=== PATIENT | female | born 1960 | race Two or more races ===

== ENCOUNTER → 2020-08-07 11:56 | Outpatient (BNVA) | payer MEDICAID, SELFPAY | PROVIDERS: PCP Nurse Practitioner Family; Referring Provider Nurse Practitioner Family; Visit Provider Nurse Practitioner Family | DX: I26.99 Other pulmonary embolism without acute cor pulmonale (principal); Z51.81 Encounter for therapeutic drug level monitoring; Z79.01 Long term (current) use of anticoagulants | CPT/HCPCS: 93793 ==

== ENCOUNTER → 2020-08-13 16:32 | Outpatient (BNVA) | payer MEDICAID, SELFPAY | PROVIDERS: PCP Nurse Practitioner Family; Visit Provider Internal Medicine | DX: I26.99 Other pulmonary embolism without acute cor pulmonale (principal); Z51.81 Encounter for therapeutic drug level monitoring; Z79.01 Long term (current) use of anticoagulants | CPT/HCPCS: 99211 ==

== ENCOUNTER 2020-08-14 12:05 | Outpatient (REF) | payer MEDICAID, SELFPAY ==
[2020-08-14 13:55] LABS: Alanine Aminotransferase 45 U/L (0-31); Albumin Level 4.4 g/dL (3.5-5.0); Alkaline Phosphatase 60 U/L (39-117); Anion Gap 12 (12-20); Aspartate Amino Transferase 40 U/L (5-31); Bilirubin Total 0.6 mg/dL (0.0-1.0); Blood Urea Nitrogen 9 mg/dL (9-16); Calcium 9.8 mg/dL (8.4-10.2); Carbon Dioxide 26 mmol/L (22-29); Chloride 106 mmol/L (96-108); Estimated Glomerular Filt Rate 49; Glucose Fasting 142 mg/dL (60-99); Potassium 4.1 mmol/l (3.3-5.1); Sodium 140 mmol/L (135-145); Total Protein 6.6 g/dL (6.5-8.0)
[2020-08-18 10:26] LABS: Calcium, Ionized 5.3 mg/dL (4.8-5.6)
[2020-08-19 07:02] LABS: Calcium (PTHI) 10.1 mg/dL (8.6-10.4); PTHI 22 pg/mL (14-64)
== END 2020-08-14 12:06 | disposition home or self-care (01) ==
LOC: HO.LAB 12:05
PROVIDERS: PCP Nurse Practitioner Family; Visit Provider Internal Medicine Endocrinology, Diabetes & Metabolism
DX: E83.52 Hypercalcemia (principal)
CPT/HCPCS: 80053; 82330; 83970

== ENCOUNTER → 2020-08-21 16:19 | Outpatient (BNVA) | payer MEDICAID, SELFPAY | PROVIDERS: PCP Nurse Practitioner Family; Visit Provider Internal Medicine | DX: I26.99 Other pulmonary embolism without acute cor pulmonale (principal); Z51.81 Encounter for therapeutic drug level monitoring; Z79.01 Long term (current) use of anticoagulants | CPT/HCPCS: Q3014 ==

== ENCOUNTER → 2020-08-27 11:21 | Outpatient (BNVA) | payer MEDICAID, SELFPAY | PROVIDERS: PCP Internal Medicine; Visit Provider Internal Medicine | DX: I26.99 Other pulmonary embolism without acute cor pulmonale (principal); Z51.81 Encounter for therapeutic drug level monitoring; Z79.01 Long term (current) use of anticoagulants | CPT/HCPCS: Q3014 ==

== ENCOUNTER → 2020-09-12 12:57 | Outpatient (BNVA) | payer MEDICAID, SELFPAY | PROVIDERS: PCP Nurse Practitioner Family; Referring Provider Nurse Practitioner Family; Visit Provider Nurse Practitioner Family | DX: K59.00 Constipation, unspecified (principal); K21.9 Gastro-esophageal reflux disease without esophagitis | CPT/HCPCS: 99212 ==

== ENCOUNTER → 2020-09-18 13:08 | Outpatient (BNVA) | payer MEDICAID, SELFPAY | PROVIDERS: PCP Nurse Practitioner Family; Visit Provider Internal Medicine | DX: Z76.89 Persons encountering health services in other specified circumstances (principal) ==

== ENCOUNTER → 2020-10-01 14:20 | Outpatient (BNVA) | payer MEDICAID, SELFPAY | PROVIDERS: PCP Nurse Practitioner Family; Visit Provider Internal Medicine | DX: Z76.89 Persons encountering health services in other specified circumstances (principal) ==

== ENCOUNTER → 2020-10-15 11:52 | Outpatient (BNVA) | payer MEDICAID, SELFPAY | PROVIDERS: PCP Nurse Practitioner Family; Visit Provider Internal Medicine | DX: I26.99 Other pulmonary embolism without acute cor pulmonale (principal); Z51.81 Encounter for therapeutic drug level monitoring; Z79.01 Long term (current) use of anticoagulants | CPT/HCPCS: Q3014 ==

== ENCOUNTER → 2020-10-17 12:59 | Outpatient (BNVA) | payer MEDICAID, SELFPAY | PROVIDERS: PCP Nurse Practitioner Primary Care; Visit Provider Internal Medicine Endocrinology, Diabetes & Metabolism | DX: E11.65 Type 2 diabetes mellitus with hyperglycemia (principal); E11.42 Type 2 diabetes mellitus with diabetic polyneuropathy; Z79.4 Long term (current) use of insulin; E78.5 Hyperlipidemia, unspecified; I10 Essential (primary) hypertension | CPT/HCPCS: 82947; 99212 ==

== ENCOUNTER → 2020-10-20 15:05 | Outpatient (BNVA) | payer MEDICAID, SELFPAY | PROVIDERS: PCP Nurse Practitioner Primary Care; Visit Provider Internal Medicine | DX: I26.99 Other pulmonary embolism without acute cor pulmonale (principal); Z51.81 Encounter for therapeutic drug level monitoring; Z79.01 Long term (current) use of anticoagulants | CPT/HCPCS: Q3014 ==

== ENCOUNTER → 2020-10-24 17:01 | Outpatient (BNVA) | payer MEDICAID, SELFPAY | PROVIDERS: PCP Nurse Practitioner Family; Visit Provider Internal Medicine | DX: I26.99 Other pulmonary embolism without acute cor pulmonale (principal); Z51.81 Encounter for therapeutic drug level monitoring; Z79.01 Long term (current) use of anticoagulants | CPT/HCPCS: Q3014 ==

== ENCOUNTER → 2020-10-29 14:47 | Outpatient (BNVA) | payer MEDICAID, SELFPAY | PROVIDERS: PCP Nurse Practitioner Family; Visit Provider Internal Medicine | DX: Z76.89 Persons encountering health services in other specified circumstances (principal) ==

== ENCOUNTER → 2020-11-03 12:01 | Outpatient (BNVA) | payer MEDICAID, SELFPAY | PROVIDERS: PCP Nurse Practitioner Family; Visit Provider Internal Medicine | DX: I26.99 Other pulmonary embolism without acute cor pulmonale (principal); Z51.81 Encounter for therapeutic drug level monitoring; Z79.01 Long term (current) use of anticoagulants | CPT/HCPCS: Q3014 ==

== ENCOUNTER → 2020-11-11 11:46 | Outpatient (BNVA) | payer MEDICAID, SELFPAY | PROVIDERS: PCP Nurse Practitioner Family; Visit Provider Internal Medicine | DX: I26.99 Other pulmonary embolism without acute cor pulmonale (principal); Z79.01 Long term (current) use of anticoagulants; Z51.81 Encounter for therapeutic drug level monitoring | CPT/HCPCS: Q3014 ==

== ENCOUNTER → 2020-11-19 13:22 | Outpatient (BNVA) | payer MEDICAID, SELFPAY | PROVIDERS: PCP Nurse Practitioner Family; Visit Provider Internal Medicine | DX: I26.99 Other pulmonary embolism without acute cor pulmonale (principal); Z79.01 Long term (current) use of anticoagulants; Z51.81 Encounter for therapeutic drug level monitoring | CPT/HCPCS: Q3014 ==

== ENCOUNTER → 2020-12-01 15:27 | Outpatient (BNVA) | payer MEDICAID, SELFPAY | PROVIDERS: PCP Nurse Practitioner Family; Visit Provider Internal Medicine | DX: I26.99 Other pulmonary embolism without acute cor pulmonale (principal); Z51.81 Encounter for therapeutic drug level monitoring; Z79.01 Long term (current) use of anticoagulants | CPT/HCPCS: Q3014 ==

== ENCOUNTER → 2020-12-16 14:37 | Outpatient (BNVA) | payer MEDICAID, SELFPAY | PROVIDERS: PCP Nurse Practitioner Family; Visit Provider Internal Medicine | DX: I26.99 Other pulmonary embolism without acute cor pulmonale (principal); Z51.81 Encounter for therapeutic drug level monitoring; Z79.01 Long term (current) use of anticoagulants | CPT/HCPCS: Q3014 ==

== ENCOUNTER 2020-12-19 13:13 | Outpatient (REF) | payer MEDICAID, SELFPAY ==
--- NOTE | ~2020-12-19 | MM_ITS ---
EXAMINATION: MM SCREENING DIGITAL BREAST TOMOSYNTHESIS, BILATERAL CLINICAL INFORMATION: Screening. Asymptomatic. The lifetime risk of breast cancer based on the Tyrer-Cuzick Model is 7%. COMPARISON: Mammography: 07/04/2018, 03/01/2017 TECHNIQUE: Digital breast tomosynthesis is performed in both the craniocaudal and mediolateral oblique views along with computer-aided detection (CAD). Synthesized 2D images are generated from the tomosynthesis. Additional left cleavage view is provided. FINDINGS: There are scattered areas of fibroglandular density (ACR BI-RADS breast composition Category b). There are no significant masses, abnormal calcifications, or other abnormalities. Parenchymal pattern is similar to prior studies. MM/MM tomosynthesis screening BI IMPRESSION: No mammographic evidence of malignancy. ASSESSMENT: BI-RADS 1: Negative RECOMMENDATION: Routine annual mammography screening. This patient's information was entered into a reminder system with a target due date for their next mammogram.
== END 2020-12-19 13:14 | disposition home or self-care (01) ==
LOC: HO.MAMMO 13:13
PROVIDERS: Visit Provider Nurse Practitioner Primary Care
DX: Z12.31 Encounter for screening mammogram for malignant neoplasm of breast (principal)
CPT/HCPCS: 77063; 77067

== ENCOUNTER → 2020-12-29 15:22 | Outpatient (BNVA) | payer MEDICAID, SELFPAY | PROVIDERS: PCP Nurse Practitioner Family; Visit Provider Internal Medicine | DX: I26.99 Other pulmonary embolism without acute cor pulmonale (principal); Z51.81 Encounter for therapeutic drug level monitoring; Z79.01 Long term (current) use of anticoagulants | CPT/HCPCS: Q3014 ==

== ENCOUNTER → 2021-01-05 13:36 | Outpatient (BNVA) | payer MEDICAID, SELFPAY | PROVIDERS: PCP Nurse Practitioner Family; Visit Provider Internal Medicine | DX: I26.99 Other pulmonary embolism without acute cor pulmonale (principal); Z51.81 Encounter for therapeutic drug level monitoring; Z79.01 Long term (current) use of anticoagulants | CPT/HCPCS: Q3014 ==

== ENCOUNTER → 2021-01-12 16:04 | Outpatient (BNVA) | payer MEDICAID, SELFPAY | PROVIDERS: PCP Nurse Practitioner Family; Visit Provider Internal Medicine | DX: I26.99 Other pulmonary embolism without acute cor pulmonale (principal); Z51.81 Encounter for therapeutic drug level monitoring; Z79.01 Long term (current) use of anticoagulants | CPT/HCPCS: Q3014 ==

== ENCOUNTER → 2021-01-26 14:12 | Outpatient (BNVA) | payer MEDICAID, SELFPAY | PROVIDERS: PCP Internal Medicine; Visit Provider Internal Medicine | DX: I26.99 Other pulmonary embolism without acute cor pulmonale (principal); Z51.81 Encounter for therapeutic drug level monitoring; Z79.01 Long term (current) use of anticoagulants | CPT/HCPCS: Q3014 ==

== ENCOUNTER 2021-01-27 10:59 | Outpatient (REF) | payer MEDICAID, SELFPAY ==
[2021-01-27 12:48] LABS: Hematocrit 44.3 % (37-47); Hemoglobin 15.5 g/dl (12.0-16.0); Mean Corpuscular Hemoglobin 30.4 pg (27.0-33.0); Mean Corpuscular Volume 86.9 fL (80-98); Mean Platelet Volume 12.3 fL (9.4-12.3); Platelet Count 229 X10*3/uL (160-400); White Blood Count 7.6 X10*3/uL (4.8-10.8)
[2021-01-27 13:15] LABS: Estimated Average Glucose 229 mg/dL; Hemoglobin A1c % 9.6 %
[2021-01-27 13:21] LABS: Alanine Aminotransferase 48 U/L (0-31); Albumin Level 4.8 g/dL (3.5-5.0); Alkaline Phosphatase 96 U/L (39-117); Anion Gap 19 (12-20); Aspartate Amino Transferase 40 U/L (5-31); Bilirubin Direct 0.3 mg/dL (0.0-0.5); Bilirubin Total 0.8 mg/dL (0.0-1.0); Blood Urea Nitrogen 12 mg/dL (9-16); Calcium 10.2 mg/dL (8.4-10.2); Carbon Dioxide 24 mmol/L (22-29); Chloride 99 mmol/L (96-108); Cholesterol 163 mg/dL; Estimated Glomerular Filt Rate 48; Glucose Random 239 mg/dL (60-115); HDL Cholesterol 46 mg/dL; LDL Cholesterol Calculated 77 mg/dl; Magnesium 1.7 mg/dL (1.6-2.6); Sodium 138 mmol/L (135-145); Total Protein 7.5 g/dL (6.5-8.0); Triglycerides 200 mg/dL
[2021-01-27 13:43] LABS: TSH reflex Free T4 1.03 uIU/mL (0.32-4.0)
[2021-01-27 13:57] LABS: Vitamin B12 322 pg/mL (200-900)
== END 2021-01-27 11:00 | disposition home or self-care (01) ==
LOC: HO.LAB 10:59
PROVIDERS: PCP Nurse Practitioner Primary Care; Visit Provider Nurse Practitioner Primary Care
DX: E55.9 Vitamin D deficiency, unspecified (principal); I10 Essential (primary) hypertension; E78.2 Mixed hyperlipidemia; E11.22 Type 2 diabetes mellitus with diabetic chronic kidney disease; E11.69 Type 2 diabetes mellitus with other specified complication; K75.81 Nonalcoholic steatohepatitis (NASH); R25.2 Cramp and spasm; R79.89 Other specified abnormal findings of blood chemistry
CPT/HCPCS: 36415; 80048; 80061; 80076; 82306; 82607; 83036; 83735; 84443; 85027

== ENCOUNTER → 2021-02-02 15:30 | Outpatient (BNVA) | payer MEDICAID, SELFPAY | PROVIDERS: PCP Nurse Practitioner Family; Visit Provider Internal Medicine | DX: I26.99 Other pulmonary embolism without acute cor pulmonale (principal); Z51.81 Encounter for therapeutic drug level monitoring; Z79.01 Long term (current) use of anticoagulants | CPT/HCPCS: Q3014 ==

== ENCOUNTER → 2021-02-09 16:29 | Outpatient (BNVA) | payer MEDICAID, SELFPAY | PROVIDERS: PCP Internal Medicine; Visit Provider Internal Medicine | DX: I26.99 Other pulmonary embolism without acute cor pulmonale (principal) | CPT/HCPCS: Q3014 ==

== ENCOUNTER → 2021-02-13 16:19 | Outpatient (BNVA) | payer MEDICAID, SELFPAY | PROVIDERS: PCP Nurse Practitioner Primary Care; Visit Provider Internal Medicine | DX: I26.99 Other pulmonary embolism without acute cor pulmonale (principal); Z79.01 Long term (current) use of anticoagulants; Z51.81 Encounter for therapeutic drug level monitoring | CPT/HCPCS: Q3014 ==

== ENCOUNTER → 2021-02-17 14:35 | Outpatient (BNVA) | payer MEDICAID, SELFPAY | PROVIDERS: PCP Nurse Practitioner Primary Care; Visit Provider Internal Medicine | DX: I26.99 Other pulmonary embolism without acute cor pulmonale (principal); Z79.01 Long term (current) use of anticoagulants; Z51.81 Encounter for therapeutic drug level monitoring | CPT/HCPCS: Q3014 ==

== ENCOUNTER → 2021-02-19 16:09 | Outpatient (BNVA) | payer MEDICAID, SELFPAY | PROVIDERS: PCP Nurse Practitioner Primary Care; Visit Provider Internal Medicine ==

== ENCOUNTER → 2021-02-25 14:01 | Outpatient (BNVA) | payer MEDICAID, SELFPAY | PROVIDERS: PCP Nurse Practitioner Primary Care; Visit Provider Internal Medicine | DX: I26.99 Other pulmonary embolism without acute cor pulmonale (principal); Z79.01 Long term (current) use of anticoagulants; Z51.81 Encounter for therapeutic drug level monitoring | CPT/HCPCS: Q3014 ==

== ENCOUNTER → 2021-03-04 15:00 | Outpatient (BNVA) | payer MEDICAID, SELFPAY | PROVIDERS: PCP Nurse Practitioner Primary Care; Visit Provider Internal Medicine | DX: I26.99 Other pulmonary embolism without acute cor pulmonale (principal); Z51.81 Encounter for therapeutic drug level monitoring; Z79.01 Long term (current) use of anticoagulants | CPT/HCPCS: Q3014 ==

== ENCOUNTER → 2021-03-09 14:56 | Outpatient (BNVA) | payer MEDICAID, SELFPAY | PROVIDERS: PCP Nurse Practitioner Primary Care; Visit Provider Internal Medicine | DX: Z51.81 Encounter for therapeutic drug level monitoring (principal) | CPT/HCPCS: Q3014 ==

== ENCOUNTER → 2021-03-16 14:47 | Outpatient (BNVA) | payer MEDICAID, SELFPAY | PROVIDERS: PCP Internal Medicine; Visit Provider Internal Medicine | DX: I26.99 Other pulmonary embolism without acute cor pulmonale (principal) | CPT/HCPCS: Q3014 ==

== ENCOUNTER → 2021-03-19 11:48 | Outpatient (BNVA) | payer MEDICAID, SELFPAY | PROVIDERS: PCP Nurse Practitioner Primary Care; Visit Provider Internal Medicine | DX: I26.99 Other pulmonary embolism without acute cor pulmonale (principal) | CPT/HCPCS: Q3014 ==

== ENCOUNTER → 2021-03-24 13:25 | Outpatient (BNVA) | payer MEDICAID, SELFPAY | PROVIDERS: PCP Nurse Practitioner Primary Care; Visit Provider Internal Medicine | DX: I26.99 Other pulmonary embolism without acute cor pulmonale (principal) | CPT/HCPCS: Q3014 ==

== ENCOUNTER → 2021-04-27 12:58 | Outpatient (BNVA) | payer MEDICAID, SELFPAY | PROVIDERS: PCP Internal Medicine; Visit Provider Internal Medicine Endocrinology, Diabetes & Metabolism | DX: E11.65 Type 2 diabetes mellitus with hyperglycemia (principal); E11.42 Type 2 diabetes mellitus with diabetic polyneuropathy; I10 Essential (primary) hypertension; E78.5 Hyperlipidemia, unspecified; Z79.4 Long term (current) use of insulin; Z71.3 Dietary counseling and surveillance | CPT/HCPCS: 82947; 99212 ==

== ENCOUNTER 2021-06-10 10:27 | Emergency (ER) | payer MEDICAID, SELFPAY ==
--- NOTE | ~2021-06-10 | XR_ITS ---
EXAMINATION: XR SHOULDER, RIGHT CLINICAL INFORMATION: Pain. Fall/trauma approximately 2 weeks ago. COMPARISON: Chest radiographs 06/16/2017 TECHNIQUE: Right shoulder is imaged in 4 views. FINDINGS: There is no acute or healing fracture or dislocation or destructive process. The glenohumeral joint is normal. The acromioclavicular alignment is normal. There are no visible rotator cuff calcifications. The right lung apex shows no pneumothorax or pleural reaction. No infiltrate. XR/XR shoulder RT min 2V IMPRESSION: Unremarkable right shoulder.
[2021-06-10 10:29] VITALS: BP 146/89; PULSE 63; RESP 17; TEMP 36.5; O2SAT 100; BMI 29.0
--- NOTE | 2021-06-10 11:16 | ED.GENADULT ---
HPI - General Adult General Chief complaint: Extremity Problem Stated complaint: shoulder pain Time Seen by Provider: 06/10/21 11:11 History of Present Illness HPI narrative: This is a 60-year-old female who fell a few weeks ago injuring her right shoulder area. The patient states she actually landed on her buttock and does not believe she directly impacted her right shoulder but subsequently did have pain to her right shoulder area especially the posterior area at the base of the neck. The patient complains of pain from the right base of her neck down to her right shoulder area. She did bump her head but denies loss of consciousness or nausea vomiting. She has only a very mild headache. She is on Coumadin due to prior pulmonary embolism. She denies any shortness of breath or abdominal pain. She denies any numbness or weakness in her right upper extremity. Pain is moderately severe, aching, worse with movement. She denies any pain to her buttock area Related Data Home Medications Medication Instructions Recorded Confirmed albuterol sulfate 90 mcg/actuation 2 puff INHALATION Q4-6H PRN 08/26/20 04/27/21 aerosol inhaler (ProAir HFA) aspirin 81 mg tablet 81 mg PO DAILY 08/26/20 04/27/21 atorvastatin 80 mg tablet (Lipitor) 80 mg PO DAILY 08/26/20 04/27/21 blood-glucose meter (FreeStyle 08/26/20 04/27/21 Lite Meter) budesonide-formoterol HFA 160 2 puff INHALATION BID 08/26/20 04/27/21 mcg-4.5 mcg/actuation aerosol inhaler clonazepam 1 mg tablet 1 mg PO BEDTIME 08/26/20 04/27/21 docusate sodium 100 mg capsule 100 mg PO BID PRN 08/26/20 04/27/21 (Colace) eszopiclone 2 mg tablet 2 mg PO BEDTIME 08/26/20 04/27/21 fenofibrate micronized 134 mg 134 mg PO DAILY 08/26/20 04/27/21 capsule fluconazole 150 mg tablet 150 mg PO ONCE 08/26/20 04/27/21 furosemide 20 mg tablet 20 mg PO DAILY 08/26/20 04/27/21 gabapentin 600 mg tablet 600 mg PO TID 08/26/20 04/27/21 metoprolol succinate 25 mg 25 mg PO BID 08/26/20 04/27/21 tablet,extended release 24 hr nitroglycerin 0.3 mg sublingual 0.3 mg SUBLINGUAL DAILY PRN 08/26/20 04/27/21 tablet (Nitrostat) sennosides 8.6 mg-docusate sodium 1 tab-cap PO BEDTIME PRN 08/26/20 04/27/21 50 mg tablet sertraline 100 mg tablet (Zoloft) 100 mg PO DAILY 08/26/20 04/27/21 tiotropium bromide 2.5 2 puff INHALATION DAILY 08/26/20 04/27/21 mcg/actuation mist for inhalation tramadol 50 mg tablet 50 mg PO Q8H PRN 08/26/20 04/27/21 varenicline 0.5 mg tablet (Chantix) 0.5 mg PO DAILY 08/26/20 04/27/21 Previous Rx's Medication Instructions Recorded omeprazole 20 mg capsule,delayed 20 mg PO BID #60 cap 10/01/20 release alcohol swabs (Alcohol Pads) 1 pad TOPICAL .4 times a day 30 10/07/20 Days #200 ea warfarin 2 mg tablet 2 mg PO DAILY #90 tab 11/19/20 FreeStyle Lancets 28 gauge #300 ea NS 04/27/21 (lancets) acarbose 100 mg tablet 100 mg PO TID 90 Days #270 tab 04/27/21 blood sugar diagnostic (FreeStyle #300 ea 04/27/21 Lite Strips) dulaglutide 3 mg/0.5 mL 3 mg SUBCUT QWEEK 30 Days #2.5 ml 04/27/21 subcutaneous pen injector (Trulicity) insulin glargine 100 unit/mL 42 unit SUBCUT QPM 90 Days #60 ml 04/27/21 subcutaneous solution (Lantus U-100 Insulin) insulin syringe-needle U-100 0.5 1 ml MISCELLANEOUS DAILY 90 Days 04/27/21 mL 31 gauge x 5/16 (Comfort EZ #100 ea Insulin Syringe) metformin 500 mg tablet 500 mg PO BID 90 Days #180 tab 04/27/21 tramadol 50 mg tablet 50 - 100 mg PO Q4H PRN #20 tab 06/10/21 Allergies Allergy/AdvReac Type Severity Reaction Status Date / Time No Known Allergies Allergy Verified 03/24/21 13:26 Pt states no food/medication Allergy Unknown NONE Uncoded 08/09/20 15:09 a Review of Systems Cardiovascular: Cardiovascular: Reports no additional cardiovascular complaints Respiratory: Respiratory: Reports no additional respiratory complaints Musculoskeletal: Musculoskeletal: Reports as per HPI and Denies numbness Neurologic: Denies focal weakness, Denies numbness and Denies Sensory deficit (Neuro) [facility] Past Medical History Medical History (Updated 06/10/21 @ 12:14 by Swapnil Paulino MD) Constipation Diabetes type 2, uncontrolled Diabetic polyneuropathy associated with type 2 diabetes mellitus Dyslipidemia GERD (gastroesophageal reflux disease) Hypertension intermediate (current) use of insulin Surgical History Hx of endoscopy Family History Family History (Updated 09/12/20 @ 12:57 by Iman Myers CMA) Father No problems noted. Mother Hx of colon cancer, stage I Hx of diabetes insipidus Social History Social History (Updated 03/10/21 @ 10:17 by Linsey Marcos RN) Alcohol intake: former Advance Directives: No Advance Directives Information Provided: No Patient : No Physical Exam Vital Signs: Vital Signs: Last Vital Signs Temp 97.7 F 06/10/21 10:29 Pulse 63 06/10/21 10:29 Resp 17 06/10/21 10:29 BP 146/89 H 06/10/21 10:29 Pulse Ox 100 06/10/21 10:29 Body Mass Index 29.0 Const: General: cooperative, no acute distress and alert Orientation/consciousness: patient oriented x3 HENMT: Head: Yes normal to inspection Eyes: General: appearance normal, both eyes and all related structures Eyelids: Yes eyelids normal Conjunctivae: conjunctivae normal Pupils: Equal, round and reactive pupils present Neck: Neck: Yes normal visual inspection and Yes supple Chest: Chest palpation & inspection: normal inspection of the chest Resp: Effort & Inspection: normal respiratory effort Auscultation: clear to auscultation bilaterally Cardio: Rate: regular rate Rhythm: regular rhythm Heart sounds: S1 normal heart sound present, S2 normal heart sound present, no gallops, no murmurs and no rubs GI: Palpation (GI): Soft to palpation, nontender and Other GI palpation findings present (Non-distended) Auscultation: normal bowel sounds Skin: General skin exam: no rashes or lesions noted Neuro: General: patient oriented x3, no focal motor deficits and CN's II-XI intact bilaterally Cranial nerves: Yes Equal, round and reactive pupils present Cognition (Neuro): normal cognition Motor exam (neuro): 5/5 motor strength present throughout Sensory Exam: No Sensory deficit (Neuro) Extrem: General: Yes normal to inspection, Yes no pedal edema and Yes other (Mild tenderness right posterior shoulder, right base of neck) Psych: Appearance: grossly normal Affect: normal affect Medical Decision Making MDM Narrative Medical decision making narrative: Patient with right posterior shoulder and neck pain after she fell on her buttock few weeks ago. Shoulder x-ray negative. Patient reported no buttock pain. Patient thinks she may have bumped her head, and is on Coumadin however the injury occurred 2 weeks ago and the patient reports no significant headache, did not lose consciousness, has not had any nausea vomiting, is neurologically normal, do not believe CT scan is indicated. Imaging Data Right shoulder: Attestation: I personally reviewed and interpreted this imaging study as follows: My impression: No acute pathology Discharge Plan Discharge Clinical Impression: Upper back pain on right side Patient Disposition: Home, Self-Care Instructions: Back Pain (ED), Neck Pain (ED) Additional Instructions: Use Tylenol 650 mg every 4-6 hours for pain as needed. Use the prescribed tramadol as well for pain. Try to rest your neck and upper back. Follow-up with primary care physician. Return for any new or worsened symptoms such as progressive headache, nausea vomiting Prescriptions: New tramadol 50 mg tablet 50 - 100 mg PO Q4H PRN (Reason: pain) Qty: 20 RF: 0 No Action omeprazole 20 mg capsule,delayed release(DR/EC) 20 mg PO BID Qty: 60 RF: 11 alcohol swabs [Alcohol Pads] Pads, Medicated 1 pad topical .4 times a day 30 Days Qty: 200 RF: 6 atorvastatin [Lipitor] 80 mg Tablet 80 mg PO DAILY RF: 0 gabapentin 600 mg Tablet 600 mg PO TID RF: 0 sertraline [Zoloft] 100 mg Tablet 100 mg PO DAILY RF: 0 tramadol 50 mg Tablet 50 mg PO Q8H PRN (Reason: Pain) RF: 0 fenofibrate micronized 134 mg Capsule 134 mg PO DAILY RF: 0 aspirin 81 mg Tablet 81 mg PO DAILY RF: 0 metoprolol succinate 25 mg Tablet Extended Release 24 Hr 25 mg PO BID RF: 0 nitroglycerin [Nitrostat] 0.3 mg Tablet, Sublingual 0.3 mg SUBLINGUAL DAILY PRN (Reason: Chest Pain) RF: 0 fluconazole 150 mg Tablet 150 mg PO ONCE RF: 0 clonazepam 1 mg Tablet 1 mg PO BEDTIME RF: 0 furosemide 20 mg Tablet 20 mg PO DAILY RF: 0 albuterol sulfate [ProAir HFA] 90 mcg/actuation Hfa Aerosol Inhaler 2 puff INHALATION Q4-6H PRN (Reason: Shortness Of Breath Or Wheezing) RF: 0 eszopiclone 2 mg Tablet 2 mg PO BEDTIME RF: 0 budesonide-formoterol 160-4.5 mcg/actuation Hfa Aerosol Inhaler 2 puff INHALATION BID RF: 0 tiotropium bromide 2.5 mcg/actuation Mist 2 puff INHALATION DAILY RF: 0 sennosides-docusate sodium 8.6-50 mg Tablet 1 tab-cap PO BEDTIME PRN (Reason: Constipation) RF: 0 (DME) blood-glucose meter [FreeStyle Lite Meter] Kit MISCELLANEOUS RF: 0 docusate sodium [Colace] 100 mg Capsule 100 mg PO BID PRN (Reason: Constipation) RF: 0 Chantix 0.5 mg Tablet 0.5 mg PO DAILY RF: 0 acarbose 100 mg tablet 100 mg PO TID 90 Days Qty: 270 RF: 2 (DME) FreeStyle Lite Strips Strip See Rx Instructions .ROUTE .MEDSUPPLY Qty: 300 RF: 2 (DME) lancets [FreeStyle Lancets] 28 gauge misc MISCELLANEOUS Qty: 300 RF: 1 Lantus U-100 Insulin 100 unit/mL solution 42 unit SUBCUT QPM 90 Days Qty: 60 RF: 1 insulin syringe-needle U-100 [Comfort EZ Insulin Syringe] 0.5 mL 31 gauge x 5/16 syringe 1 ml miscellaneous DAILY 90 Days Qty: 100 RF: 3 metformin 500 mg tablet 500 mg PO BID 90 Days Qty: 180 RF: 0 Trulicity 3 mg/0.5 mL pen injector 3 mg subcut QWEEK 30 Days Qty: 2.5 RF: 5 warfarin 2 mg tablet 2 mg PO DAILY Qty: 90 RF: 0 Interventions: ED Discharge Assessment Last Done: 06/10/21 12:38 Discharge Date/Time: 06/10/21 12:39
[2021-06-10] MEDS: traMADoL HCL 50 MG TABLET PO (11:22)
[2021-06-10] MEDS: Acetaminophen 325 MG TABLET 650 MG PO (11:23)
== END 2021-06-10 12:39 | disposition home or self-care (01) ==
PROVIDERS: Emergency Provider Emergency Medicine; PCP Nurse Practitioner Family
DX: M54.6 Pain in thoracic spine (principal); M54.2 Cervicalgia; E11.9 Type 2 diabetes mellitus without complications; I10 Essential (primary) hypertension; Z86.711 Personal history of pulmonary embolism; Z79.01 Long term (current) use of anticoagulants; Z79.82 Long term (current) use of aspirin; Z79.899 Other long term (current) drug therapy; Z79.4 Long term (current) use of insulin
CPT/HCPCS: 73030; 99283; 99284

== ENCOUNTER 2021-08-04 11:58 | Outpatient (REF) | payer MEDICAID, SELFPAY ==
[2021-08-04 13:03] LABS: Alanine Aminotransferase 83 U/L (0-31); Albumin Level 4.6 g/dL (3.5-5.0); Alkaline Phosphatase 97 U/L (39-117); Anion Gap 15 (12-20); Aspartate Amino Transferase 90 U/L (5-31); Bilirubin Total 0.9 mg/dL (0.0-1.0); Blood Urea Nitrogen 11 mg/dL (9-16); Calcium 10.4 mg/dL (8.4-10.2); Carbon Dioxide 24 mmol/L (22-29); Chloride 102 mmol/L (96-108); Cholesterol 135 mg/dL; Estimated Glomerular Filt Rate 50; Glucose Fasting 285 mg/dL (60-99); HDL Cholesterol 38 mg/dL; LDL Cholesterol Calculated 61 mg/dl; Potassium 3.8 mmol/L (3.3-5.1); Sodium 137 mmol/L (135-145); Total Protein 7.2 g/dL (6.5-8.0); Triglycerides 182 mg/dL
[2021-08-04 14:04] LABS: Reflex LDLD? No
[2021-08-04 14:51] LABS: Creatinine Urine 134.99 mg/dL; Microalbum/Creatinine Ratio Ur 21.4 ug/mg cr
== END 2021-08-04 11:59 | disposition home or self-care (01) ==
LOC: HO.LAB 11:58
PROVIDERS: Visit Provider Nurse Practitioner Gerontology
DX: E11.42 Type 2 diabetes mellitus with diabetic polyneuropathy (principal)
CPT/HCPCS: 36415; 80053; 80061; 82043

== ENCOUNTER → 2021-08-05 13:57 | Outpatient (BNVA) | payer MEDICAID, SELFPAY | PROVIDERS: PCP Nurse Practitioner Primary Care; Visit Provider Nurse Practitioner Gerontology | DX: E11.65 Type 2 diabetes mellitus with hyperglycemia (principal); E78.5 Hyperlipidemia, unspecified; I10 Essential (primary) hypertension; Z79.4 Long term (current) use of insulin | CPT/HCPCS: 82947; 83036; 99212 ==

== ENCOUNTER → 2021-08-20 14:25 | Outpatient (BNVA) | payer MEDICAID, SELFPAY | PROVIDERS: PCP Nurse Practitioner Primary Care; Visit Provider Nurse Practitioner Gerontology ==

== ENCOUNTER → 2021-12-08 12:57 | Outpatient (BNVA) | payer MEDICAID, SELFPAY | PROVIDERS: PCP Nurse Practitioner Primary Care; Visit Provider Nurse Practitioner Gerontology | DX: E11.65 Type 2 diabetes mellitus with hyperglycemia (principal); I10 Essential (primary) hypertension; E78.5 Hyperlipidemia, unspecified; Z79.4 Long term (current) use of insulin | CPT/HCPCS: 82947; 83036; 99212 ==

== ENCOUNTER → 2022-01-13 13:19 | Outpatient (BNVA) | payer MEDICAID, SELFPAY | PROVIDERS: PCP Nurse Practitioner Primary Care; Referring Provider Nurse Practitioner Primary Care; Visit Provider Nurse Practitioner Family | DX: I25.10 Atherosclerotic heart disease of native coronary artery without angina pectoris (principal); I10 Essential (primary) hypertension; E78.5 Hyperlipidemia, unspecified; R79.89 Other specified abnormal findings of blood chemistry; Z86.711 Personal history of pulmonary embolism; Z79.01 Long term (current) use of anticoagulants; Z79.82 Long term (current) use of aspirin; Z79.899 Other long term (current) drug therapy; Z95.5 Presence of coronary angioplasty implant and graft | CPT/HCPCS: 93005; 99212 ==

== ENCOUNTER 2022-01-27 11:17 | Outpatient (REF) | payer MEDICAID, SELFPAY ==
[2022-01-27 12:51] LABS: Alanine Aminotransferase 49 U/L (0-31); Albumin Level 4.4 g/dL (3.5-5.0); Alkaline Phosphatase 98 U/L (39-117); Anion Gap 15 (12-20); Aspartate Amino Transferase 32 U/L (5-31); Bilirubin Total 0.7 mg/dL (0.0-1.0); Blood Urea Nitrogen 13 mg/dL (9-16); Calcium 10.1 mg/dL (8.4-10.2); Carbon Dioxide 23 mmol/L (22-29); Chloride 102 mmol/L (96-108); Cholesterol 136 mg/dL; Estimated Glomerular Filt Rate 49; Glucose Random 315 mg/dL (60-115); HDL Cholesterol 38 mg/dL; LDL Cholesterol Calculated 68 mg/dl; Potassium 4.1 mmol/L (3.3-5.1); Sodium 136 mmol/L (135-145); Total Protein 6.9 g/dL (6.5-8.0); Triglycerides 151 mg/dL
== END 2022-01-27 11:18 | disposition home or self-care (01) ==
LOC: HO.LAB 11:17
PROVIDERS: PCP Nurse Practitioner Primary Care; Visit Provider Nurse Practitioner Family
DX: E78.5 Hyperlipidemia, unspecified (principal); I10 Essential (primary) hypertension
CPT/HCPCS: 36415; 80053; 80061

== ENCOUNTER → 2022-03-22 11:58 | Outpatient (BNVA) | payer MEDICAID, SELFPAY | PROVIDERS: PCP Nurse Practitioner Primary Care; Visit Provider Nurse Practitioner Gerontology | DX: E11.65 Type 2 diabetes mellitus with hyperglycemia (principal); E78.5 Hyperlipidemia, unspecified; I10 Essential (primary) hypertension; Z79.4 Long term (current) use of insulin | CPT/HCPCS: 82947; 83036; 99212 ==

== ENCOUNTER → 2022-07-21 13:07 | Outpatient (BNVA) | payer MEDICAID, SELFPAY | PROVIDERS: PCP Nurse Practitioner Primary Care; Visit Provider Nurse Practitioner Family | DX: K21.9 Gastro-esophageal reflux disease without esophagitis (principal); K59.04 Chronic idiopathic constipation; R79.89 Other specified abnormal findings of blood chemistry; R10.9 Unspecified abdominal pain | CPT/HCPCS: 99212 ==

== ENCOUNTER 2022-08-04 11:00 | Outpatient (REF) | payer MEDICAID, SELFPAY ==
[2022-08-04 12:09] LABS: Alanine Aminotransferase 23 U/L (0-31); Albumin Level 4.8 g/dL (3.5-5.0); Alkaline Phosphatase 82 U/L (39-117); Aspartate Amino Transferase 35 U/L (5-31); Bilirubin Direct 0.3 mg/dL (0.0-0.5); Bilirubin Total 0.7 mg/dL (0.0-1.0); Total Protein 7.4 g/dL (6.5-8.0)
== END 2022-08-04 11:01 | disposition home or self-care (01) ==
LOC: HO.LAB 11:00
PROVIDERS: PCP Nurse Practitioner Primary Care; Visit Provider Nurse Practitioner Family
DX: R10.9 Unspecified abdominal pain (principal)
CPT/HCPCS: 36415; 80076

== ENCOUNTER 2022-12-03 12:57 | Outpatient (REF) | payer MEDICAID, SELFPAY ==
--- NOTE | ~2022-12-03 | MM_ITS ---
EXAMINATION: MM SCREENING DIGITAL BREAST TOMOSYNTHESIS, BILATERAL CLINICAL INFORMATION: Screening. Asymptomatic. The lifetime risk of breast cancer based on the Tyrer-Cuzick Model is 8%. COMPARISON: Mammography: 12/19/2020, 07/04/2018, 03/01/2017 TECHNIQUE: Digital breast tomosynthesis is performed in both the craniocaudal and mediolateral oblique views along with computer-aided detection (CAD). Synthesized 2D images are generated from the tomosynthesis. FINDINGS: There are scattered areas of fibroglandular density (ACR BI-RADS breast composition Category b). There are no significant masses, abnormal calcifications, or other abnormalities. Parenchymal pattern is similar to prior studies. There is no developing density or architectural abnormality. The axilla and skin contours are unremarkable. No significant changes. MM/MM tomosynthesis screening BI IMPRESSION: No mammographic evidence of malignancy. ASSESSMENT: BI-RADS 1: Negative RECOMMENDATION: Routine annual mammography screening. This patient's information was entered into a reminder system with a target due date for their next mammogram.
== END 2022-12-03 12:58 | disposition home or self-care (01) ==
LOC: HO.MAMMO 12:57
PROVIDERS: PCP Nurse Practitioner Primary Care; Visit Provider Nurse Practitioner Primary Care
DX: Z12.31 Encounter for screening mammogram for malignant neoplasm of breast (principal)
CPT/HCPCS: 77063; 77067

== ENCOUNTER → 2023-03-07 14:29 | Outpatient (BNVA) | payer MEDICAID, SELFPAY | PROVIDERS: PCP Nurse Practitioner Primary Care; Referring Provider Nurse Practitioner Primary Care; Visit Provider Internal Medicine | DX: I25.10 Atherosclerotic heart disease of native coronary artery without angina pectoris (principal); I10 Essential (primary) hypertension; R94.31 Abnormal electrocardiogram [ECG] [EKG]; E11.65 Type 2 diabetes mellitus with hyperglycemia; E11.42 Type 2 diabetes mellitus with diabetic polyneuropathy; E78.5 Hyperlipidemia, unspecified; Z95.5 Presence of coronary angioplasty implant and graft; Z79.4 Long term (current) use of insulin | CPT/HCPCS: 93005; 99212 ==

== ENCOUNTER → 2023-04-05 08:50 | Outpatient (REF) | payer MEDICAID, SELFPAY ==
--- NOTE | ~2023-04-05 | NM_ITS ---
Lexiscan Myocardial perfusion study Indication: Abnormal EKG, coronary disease, assess for ischemia Technique: The patient was brought in for a Lexiscan perfusion study on 04/05/2023 and was injected 0.4 mg of Lexiscan intravenously. Within a minute of this injection 25 mCi of sestamibi was given intravenously. Images were obtained using the SPECT gamma camera interlaced with the gating device. Images were obtained in supine position. Resting perfusion study was performed on 04/07/2023. Patient was administered 25 mCi of sestamibi intravenously at rest. Images were then obtained in supine position. Images were processed with the software and compared side to side in short axis, horizontal long axis and vertical long axis views. Total DLP 145mGy-cm. Findings: Raw acquisition reviewed. Arms by the patient's side. The stress perfusion study showed no significant perfusion abnormality. With CT attenuation correction, there is slightly reduced tracer uptake in the apical part of anterior wall. The gated study shows normal LV systolic function with calculated LVEF of 60%. LV cavity is normal in size. The gated study shows normal wall thickening and contraction of segments. Resting study shows diminished tracer uptake in the septum more towards the basal part. Improves with CT attenuation correction. Gating at rest reveals normal wall motion with ejection fraction at 56%. The findings are consistent with no clear reversible or fixed perfusion defects. NM/NM cardiolite stress test Impression: 1. Myocardial perfusion imaging study shows normal myocardial perfusion 2. Gated LVEF is 60% during stress and 56% during rest. 3. Transient ischemic dilatation not present. EKG component of the test reported separately.
--- NOTE | 2023-04-05 08:55 | CA_ITS ---
Acquisition Time: 2023-04-05 10:23:13 Total Exercise Time: 00:03:04 Test Indications: Abnormal ECG CAD Medications: SEE H Protocol: YOVANY Max HR: 179 BPM 112% of Pred: 159 BPM Max BP: 138/078 mmHG Max Work Load: 4.6 METS Exercise stress test exercise 3 min 4 sec of Yovany protocol stage 1 with request to stop due to faitgue and moderate SOB, once in chair she describe chest pressure 9/10, without arrhythmias, with normotensive response to exercise,without EKG changes. Once SOB and chest discomfort resolved test changed to a pharmacological stress test with Lexiscan injection while sitting and kicking her legs, with mild SOB, with reported 7/10 chest pressure, without arrhythmias, with noromotensive response to injection, without EKG changes. Aminophylline 75mg IVP given to reverse Lexiscan in recovery. Chest discomfort resolved by 7 min recovery. Nuclear images pending. Test reviewed with Dr. Nowak Referred By: Rashid Recinos Overread By: FAINA BATES
--- NOTE | 2023-04-05 08:55 | CA_ITS ---
Transthoracic Echocardiogram Patient (Last, First, Middle): Joelle Myers I Gender: Female Date of : 1960 Age: 62 Procedure Date: 04/05/2023 Procedure Type: Transthoracic Echocardiogram Location: OP Height: 154.94 cm Weight: 70.76 kg BSA: 1.70 m2 Heart Rate: bpm BP: 134 / 60 mmHg Pharmacognosy Teacher: Referring MD: Rashid Recinos MD Primary Education Professor: Moses Nowak MD Symptoms: I25.10 - Atherosclerotic heart disease of ewiiaapaayp coronary artery without... Study Quality: Adequate w Conteast ECG Rhythm: Sinus Conclusions: - 1. Normal LV systolic function with impaired relaxation filling pattern 2. Normal cardiac valvular Doppler 3. Normal RV systolic pressure 4. No gross pericardial effusion Findings Procedure Information Contrast agent, definity, is being given per protocol without apparent complications. Left Ventricle Normal left ventricular size and systolic function. There is mildly increased left ventricular wall thickness. The visually estimated ejection fraction is between 60-65%. Spectral Doppler is indicative of an impaired relaxation filling pattern. E/E prime ratio is between 8 and 15 consistent with indeterminate filling pressures. Wall Motion Rest Echo Findings The inferoseptal wall, the basal inferior, and mid inferior segments are hypokinetic. All other scored wall segments showed normal motion. Right Ventricle Normal right ventricular cavity size and systolic function. Atria Both atria are normal in size. Interatrial shunt cannot be excluded. Aortic Valve The aortic valve structure and function is likely normal. There is no aortic valve stenosis. There is no aortic valve regurgitation. Mitral Valve There is mild anterior and posterior mitral leaflet thickening. There is trace mitral valve regurgitation. There is no mitral valve stenosis. Pulmonic Valve The pulmonic valve was not well visualized. Tricuspid Valve Likely normal tricuspid valve structure and function. There is trace tricuspid valve regurgitation. The right ventricular systolic pressure is normal. The right ventricular systolic pressure is 13 mmHg. Normal right atrial pressure. Great Vessels All visible segments of the aorta are normal in size. The pulmonary artery was not well visualized. Venous The inferior vena cava is normal in size and collapses greater than 50% with inspiration. Pericardium/Pleural There is no evidence of pericardial effusion. Prior Study Comparison No significant change compared to prior study dated: 07/28/2017. Measurements 2D Linear Measurements IVSd: 1.21 0.6-0.9/0.6-1.0 cm LVIDd: 3.83 3.9-5.3/4.2-5.9 cm LVIDd Index: 2.25 2.4-3.2/2.2-3.1 cm/m2 LVIDs: 2.39 2.0-3.6 cm LVPWd: 1.22 0.7-1.1 cm Ao Root: 3.10 2.1-3.5 cm LA Diam: 3.10 2.7-3.8/3.0-4.0 cm LAIDs Index: 1.82 1.5-2.3 cm/m2 LV Mass: 196.70 67-162/88-224 g LV Mass Index: 115.70 43-95/49-115 g/m2 LVOT Diam: 1.90 3.0+(-)1.3 cm 2D Systolic Function EF 4C: 58.20 >55% EF 2C: 66.40 >55% EF BiP: 62.10 >55% Mitral Valve MV Pk E: 0.54 MV PK A: 0.94 MV Decel Time: 166.00 E/A: 0.60 E'Lateral: 6.53 E'Medial: 5.87 E/E' Med: 9.10 E/E' Lat: 8.20 PHT: 49.00 MVA PHT: 4.49 Decel Swain: 3.22 Aortic Valve AoV Pk Beny: 1.16 AoV Mn Beny: 0.87 AoV VTI: 0.31 AoV Pk Grad: 5.00 Aov Mn Grad: 4.00 BRIANNA Cont.VTI: 2.21 LVOT LVOT Pk Beny: 1.14 LVOT Mn Beny: 0.75 LVOT VTI: 0.24 LVOT Pk Grad: 5.00 LVOT Mn Grad: 3.00 LVOT Diam: 1.90 LVOT Area: 2.84 Diastolic Function MV Pk E: 0.54 MV Pk A: 0.94 E/A: 0.60 E'Medial: 5.87 E/E' Med: 9.10 E' Laterial: 6.53 E/E' Lat: 8.20 Right Ventricle TAPSE (mm): 18.00 TVS' Beny: 11.00 Tricuspid Valve TR Pk Beny: 1.56 TR Pk Grad: 10.00 RA Press: 3.00 RVSP: 13.00 Great Vessels Aorta Ao Root-2D: 3.10 2.0-3.7 cm Ao Asc: 3.20 2.1-3.4 cm Pulmonary Valve PV Pk Beny: 0.91 Peak PV Grad: 3.00 Updated in Other Vendor System with Status of Final Moses Nowak MD electronically signed on 04/06/2023 5:07:16 PM with status of Final
== END ==
LOC: HO.CARD 08:50
PROVIDERS: PCP Nurse Practitioner Primary Care; Visit Provider Internal Medicine
DX: I25.10 Atherosclerotic heart disease of native coronary artery without angina pectoris (principal); R94.31 Abnormal electrocardiogram [ECG] [EKG]
CPT/HCPCS: 78452; 93017; 93306; A9500; J0280; J2785; Q9957

== ENCOUNTER 2023-06-08 12:59 | Outpatient (AMB) | payer MEDICAID, SELFPAY ==
--- NOTE | 2023-06-08 13:04 | MHC.OFFVIS ---
Intake Vital Signs 06/08/23 13:05 Height 5 ft Weight 160 lb 0.889 oz BMI 31.3 BP 128/72 Blood Pressure Location Lt brachial Position Sitting Pulse 79 Intake Visit Reasons: 3 month f/ up after testing Intake Note: 3 month follow up Lead Mechanic Required: Yes Lead Mechanic Language: Wood Casket Assembler Name: Mildred [id number] Accompanied by: Self / Same As Patient Allergies No Known Allergies Allergy (Verified 06/08/23 13:06) Medication List - Last Reconciled 06/08/23 by Rashid Recinos MD acarbose 100 mg PO TID albuterol sulfate 90 mcg/actuation (ProAir HFA) 2 puffs inhalation Q4-6H PRN alcohol swabs (Alcohol Pads) 1 pad topical .4 times a day 30 days apixaban (Eliquis) 2.5 mg PO aspirin 81 mg PO DAILY atorvastatin (Lipitor) 80 mg PO DAILY blood sugar diagnostic (FreeStyle Lite Strips) 4 times a day blood-glucose meter (FreeStyle Lite Meter kit) use as directed TID blood-glucose meter (FreeStyle [place] Lite kit) To test bg 3x/day budesonide-formoterol 160-4.5 mcg/actuation 2 puffs inhalation BID docusate sodium (Colace) 100 mg PO BID PRN dulaglutide (Trulicity) 4.5 mg (0.5 mL) subcut QWEEK eszopiclone 2 mg PO BEDTIME fenofibrate micronized 134 mg PO DAILY fluconazole 150 mg PO ONCE FreeStyle Lancets (lancets) 3 times a day NS furosemide 20 mg PO DAILY gabapentin 600 mg PO TID insulin aspart U-100 (Novolog FlexPen U-100 Insulin aspart) 16units with largest meal of the day and 12 units for 2 other meals. subcutaneously 3 times a day; subcutaneously 3 times a day; insulin glargine (Lantus Solostar U-100 Insulin) 46 units (0.46 mL) subcut QPM metformin 500 mg PO BID 90 days metoprolol succinate ER 25 mg PO BID nitroglycerin (Nitrostat) 0.3 mg sublingual DAILY PRN omeprazole 20 mg PO BID pen needle, diabetic (BD Ultra-Fine [place] Pen Needle) four times a day pioglitazone 15 mg PO DAILY sertraline (Zoloft) 100 mg PO DAILY tiotropium bromide 2.5 mcg/actuation 2 puffs inhalation DAILY HPI HPI Comments History of Present Illness Details Joelle returns for follow-up regarding coronary artery disease. She has a history of CAD and prior LAD stent. By documentation, around 2012. If she did have another catheterization in October 2013 for suspected unstable angina. Based on that study, patent mid LAD stent but otherwise normal coronaries. She has got multiple cardiovascular risk factors including type 2 diabetes, hypertension, dyslipidemia. Overall, random chest pains but more so during rest, like lying down, sitting extra, than during exertion. Otherwise, feels generally okay. Lots of comorbidities. [facility] Medical History CAD (coronary artery disease) Constipation Diabetes type 2, uncontrolled Diabetic polyneuropathy associated with type 2 diabetes mellitus Dyslipidemia Elevated LFTs GERD (gastroesophageal reflux disease) Hypertension longterm (current) use of insulin Surgical History Hx of endoscopy Family History Father No problems noted. Mother Hx of colon cancer, stage I Hx of diabetes insipidus Social History Household Members: None Alcohol intake: former Patient Tobacco Use Status: Former Tobacco user Quit Date: 2 months ago Review of Systems Const Denies weakness ENT Denies dizziness Card Denies chest pain, Denies chest pain with activity, Denies syncope, Denies rapid heart rate, Denies pedal edema, Denies edema, Denies leg edema, Denies lightheadedness, Denies palpitations, Denies dyspnea, Denies dyspnea on exertion and Denies orthopnea Resp Denies cough, Denies dyspnea and Denies dyspnea on exertion GI Denies hematochezia and Denies change in stool character Musc Denies abnormal gait, Denies muscle cramps, Denies muscle weakness, Denies numbness, Denies radiating pain into limb and Denies tingling Neuro Denies abnormal gait, Denies dizziness, Denies syncope, Denies numbness, Denies tingling and Denies weakness Endo Denies palpitations Physical Exam Vital Signs: Last Vital Signs Pulse 79 06/08/23 13:05 BP 128/72 08/02/23 13:05 BMI result Body Mass Index 31.3 Const General: comfortable and no acute distress Orientation/consciousness: patient oriented x3 HEENT Other: Unremarkable Head: Yes normal to inspection Neck Neck: Yes normal visual inspection Chest Chest palpation & inspection: normal inspection of the chest Resp Auscultation: clear to auscultation bilaterally Cardio Palpation: normal PMI Heart sounds: S1 normal heart sound present, S2 normal heart sound present, no gallops, no murmurs and no rubs GI Palpation (GI): Soft to palpation Back/Spine/Pelvis Other: unremarkable Skin General skin exam: no rashes or lesions noted Neuro General: patient oriented x3 Extrem General: Yes normal to inspection Psych Mental Status: mental status grossly normal Assessment & Plan Assessment & Plan (1) CAD (coronary artery disease): Code(s): I25.10 - Atherosclerotic heart disease of [place] coronary artery without angina pectoris (2) Stented coronary artery: Comment: LAD stent 2012 Code(s): Z95.5 - Presence of coronary angioplasty implant and graft (3) Diabetes type 2, uncontrolled: Code(s): E11.65 - Type 2 diabetes mellitus with hyperglycemia (4) Hypertension: Code(s): I10 - Essential (primary) hypertension (5) Dyslipidemia: Code(s): E78.5 - Hyperlipidemia, unspecified Plan Cardiac studies reviewed. Last cardiac catheterization from October 2013 reported to have patent mid LAD stent but otherwise normal coronary arteries. Echocardiogram from 2022 with LVEF of 60-65%. Description of inferoseptal/basal inferior/mid inferior hypokinesis. Otherwise unremarkable- images also reviewed. In the stress test, she was able to perform for 4.6 Mets on the Brandyn protocol. After stopping, she had chest pain but no EKG changes. Then had pharmacological stress test. Overall perfusion imaging showed no ischemic findings. Known coronary disease, atypical symptoms, various risk factors and testing as above. At this time, can continue aggressive risk factor modification. In the absence of any clear-cut angina, no indication to pursue cardiac catheterization at this time. If necessary, we will readdress. Last hemoglobin A1c is 7.9%. For diabetes, she is on Trulicity, insulin, metformin, pioglitazone. For dyslipidemia, on statins. Last available LDL, 63 mg/dL. With regard to Eliquis, not clear if it is for pulmonary embolism. No changes made. Medications: Changed From acarbose 100 mg PO TID 90 days 270 tabs 2RF E11.65 - Type 2 diabetes mellitus with hyperglycemia To acarbose 100 mg PO TID E11.65 - Type 2 diabetes mellitus with hyperglycemia Coding Level of Care Code Est Pt Level 4 (57969) Diagnoses CAD (coronary artery disease) I25.10 Stented coronary artery Z95.5 Diabetes type 2, uncontrolled E11.65 Hypertension I10 Dyslipidemia E78.5
[2023-06-08 13:05] VITALS: BP 128/72; PULSE 79; BMI 31.3
== END 2023-06-08 13:24 | disposition home or self-care (01) ==
PROVIDERS: PCP Nurse Practitioner Primary Care; Referring Provider Nurse Practitioner Primary Care; Visit Provider Internal Medicine
DX: I25.10 Atherosclerotic heart disease of native coronary artery without angina pectoris (principal); Z95.5 Presence of coronary angioplasty implant and graft; E11.65 Type 2 diabetes mellitus with hyperglycemia; I10 Essential (primary) hypertension; E78.5 Hyperlipidemia, unspecified
CPT/HCPCS: 99214

== ENCOUNTER → 2023-06-08 12:59 | Outpatient (BNVA) | payer MEDICAID, SELFPAY | PROVIDERS: PCP Nurse Practitioner Primary Care; Referring Provider Nurse Practitioner Primary Care; Visit Provider Internal Medicine | DX: I25.10 Atherosclerotic heart disease of native coronary artery without angina pectoris (principal); E78.5 Hyperlipidemia, unspecified; I10 Essential (primary) hypertension; E11.65 Type 2 diabetes mellitus with hyperglycemia; Z95.5 Presence of coronary angioplasty implant and graft | CPT/HCPCS: 99212 ==

== ENCOUNTER 2023-12-07 09:48 | Outpatient (REF) | payer MEDICAID, SELFPAY ==
[2023-12-07 11:10] LABS: Anion Gap 13 (12-20); Blood Urea Nitrogen 11 mg/dL (9-16); Calcium 10.5 mg/dL (8.4-10.2); Carbon Dioxide 28 mmol/L (22-29); Chloride 106 mmol/L (96-108); Cholesterol 151 mg/dL (<200); Estimated Glomerular Filt Rate 56; Glucose Random 134 mg/dL (60-115); HDL Cholesterol 60 mg/dL (>40); LDL Cholesterol Calculated 74 mg/dL (<100); Potassium 4.2 mmol/L (3.3-5.1); Sodium 143 mmol/L (135-145); Triglycerides 88 mg/dL (<150)
[2023-12-07 12:13] LABS: Vitamin B12 387 pg/mL (200-900)
== END 2023-12-07 09:49 | disposition home or self-care (01) ==
LOC: HO.LAB 09:48
PROVIDERS: PCP Nurse Practitioner Primary Care; Visit Provider Nurse Practitioner Primary Care
DX: E11.69 Type 2 diabetes mellitus with other specified complication (principal); E78.5 Hyperlipidemia, unspecified
CPT/HCPCS: 36415; 80048; 80061; 82607

== ENCOUNTER 2023-12-08 13:40 | Outpatient (AMB) | payer MEDICAID, SELFPAY ==
--- NOTE | 2023-12-08 13:47 | A.OFFVIS_ITS ---
Intake Vital Signs 12/08/23 13:48 Height 5 ft Weight 156 lb 8.451 oz BMI 30.6 BP 104/66 Blood Pressure Location Lt brachial Position Sitting Pulse 79 Intake Visit Reasons: 6 mth f/up Intake Note: 6 month follow up Hotel Night Auditor Required: Yes Hotel Night Auditor Language: Soda Flaker Name: Tino [id number] Accompanied by: Self / Same As Patient Allergies No Known Allergies Allergy (Verified 12/08/23 13:50) Medication List - Last Reconciled 12/08/23 by Rashid Recinos MD acarbose 100 mg PO TID albuterol sulfate 90 mcg/actuation (ProAir HFA) 2 puffs inhalation Q4-6H PRN alcohol swabs (Alcohol Pads) 1 pad topical .4 times a day 30 days apixaban (Eliquis) 2.5 mg PO aspirin 81 mg PO DAILY atorvastatin (Lipitor) 80 mg PO DAILY blood sugar diagnostic (FreeStyle Lite Strips) 4 times a day blood-glucose meter (FreeStyle Lite Meter kit) use as directed TID blood-glucose meter (FreeStyle [place] Lite kit) To test bg 3x/day budesonide-formoterol 160-4.5 mcg/actuation 2 puffs inhalation BID docusate sodium (Colace) 100 mg PO BID PRN dulaglutide (Trulicity) 4.5 mg (0.5 mL) subcut QWEEK eszopiclone 2 mg PO BEDTIME fenofibrate micronized 134 mg PO DAILY fluconazole 150 mg PO ONCE FreeStyle Lancets (lancets) 3 times a day NS furosemide 20 mg PO DAILY gabapentin 600 mg PO TID insulin aspart U-100 (Novolog FlexPen U-100 Insulin aspart) 16units with largest meal of the day and 12 units for 2 other meals. subcutaneously 3 times a day; subcutaneously 3 times a day; insulin glargine (Lantus Solostar U-100 Insulin) 46 units (0.46 mL) subcut QPM metformin 500 mg PO BID 90 days metoprolol succinate ER 25 mg PO BID nitroglycerin (Nitrostat) 0.3 mg sublingual DAILY PRN omeprazole 20 mg PO BID pen needle, diabetic (BD Ultra-Fine [place] Pen Needle) four times a day pioglitazone 15 mg PO DAILY sertraline (Zoloft) 100 mg PO DAILY tiotropium bromide 2.5 mcg/actuation 2 puffs inhalation DAILY HPI HPI Comments History of Present Illness Details Joelle returns for follow-up regarding coronary artery disease. She has a history of CAD and prior LAD stent. By documentation, around 2012. She did have another catheterization in October 2013 for suspected unstable angina. Based on that study, patent mid LAD stent, but otherwise normal coronaries. She has got multiple cardiovascular risk factors including type 2 diabetes, hypertension, dyslipidemia. Overall, she states she is feeling good. No complaints like angina or shortness of breath or in fact anything cardiac sounding. [facility] Medical History CAD (coronary artery disease) Constipation Diabetes type 2, uncontrolled Diabetic polyneuropathy associated with type 2 diabetes mellitus Dyslipidemia Elevated LFTs GERD (gastroesophageal reflux disease) Hypertension [facility] (current) use of insulin Surgical History Hx of endoscopy Family History Father No problems noted. Mother Hx of colon cancer, stage I Hx of diabetes insipidus Social History Household Members: None Alcohol intake: former Patient Tobacco Use Status: Former Tobacco user Quit Date: 2 months ago Review of Systems Const Denies weakness ENT Denies dizziness Card Denies chest pain, Denies chest pain with activity, Denies syncope, Denies rapid heart rate, Denies pedal edema, Denies edema, Denies leg edema, Denies lightheadedness, Denies palpitations, Denies dyspnea, Denies dyspnea on exertion and Denies orthopnea Resp Denies cough, Denies dyspnea and Denies dyspnea on exertion GI Denies hematochezia and Denies change in stool character Musc Denies abnormal gait, Denies muscle cramps, Denies muscle weakness, Denies numbness, Denies radiating pain into limb and Denies tingling Neuro Denies abnormal gait, Denies dizziness, Denies syncope, Denies numbness, Denies tingling and Denies weakness Endo Denies palpitations Physical Exam Vital Signs: Last Vital Signs Pulse 79 12/08/23 13:48 BP 104/66 12/08/23 13:48 BMI result Body Mass Index 30.6 Const General: comfortable and no acute distress Orientation/consciousness: patient oriented x3 HEENT Other: Unremarkable Head: Yes normal to inspection Neck Neck: Yes normal visual inspection Chest Chest palpation & inspection: normal inspection of the chest Resp Auscultation: clear to auscultation bilaterally Cardio Palpation: normal PMI Heart sounds: S1 normal heart sound present, S2 normal heart sound present, no gallops, no murmurs and no rubs GI Palpation (GI): Soft to palpation Back/Spine/Pelvis Other: unremarkable Skin General skin exam: no rashes or lesions noted Neuro General: patient oriented x3 Extrem General: Yes normal to inspection Psych Mental Status: mental status grossly normal Assessment & Plan Assessment & Plan (1) CAD (coronary artery disease): Code(s): I25.10 - Atherosclerotic heart disease of [place] coronary artery without angina pectoris (2) Stented coronary artery: Comment: LAD stent 2012 Code(s): Z95.5 - Presence of coronary angioplasty implant and graft (3) Diabetes type 2, uncontrolled: Code(s): E11.65 - Type 2 diabetes mellitus with hyperglycemia (4) Hypertension: Code(s): I10 - Essential (primary) hypertension (5) Dyslipidemia: Code(s): E78.5 - Hyperlipidemia, unspecified Plan Cardiac studies reviewed. Last cardiac catheterization from October 2013 reported to have patent mid LAD stent but otherwise normal coronary arteries. Echocardiogram from 2022 with LVEF of 60-65%. Description of inferoseptal/basal inferior/mid inferior hypokinesis. Otherwise unremarkable- images also reviewed. In the stress test, she was able to perform for 4.6 Mets on the Brandyn protocol. After stopping, she had chest pain but no EKG changes. Then had pharmacological stress test. Overall perfusion imaging showed no ischemic findings. Overall, continue treatment for stable coronary artery disease. Continue aspirin, high-dose statins. LDL levels are in the 50s, 60s, 70s at different times. For diabetes, on insulin, Trulicity, metformin, pioglitazone. No recent hemoglobin A1c but random sugar is 134. For Eliquis, she states it is because of a blood clot in the lungs. Otherwise, we will plan on seeing her in 1 year. She will call with any interim concerns. Coding Level of Care Code Est Pt Level 4 (73002) Diagnoses CAD (coronary artery disease) I25.10 Stented coronary artery Z95.5 Diabetes type 2, uncontrolled E11.65 Hypertension I10 Dyslipidemia E78.5
[2023-12-08 13:48] VITALS: BP 104/66; PULSE 79; BMI 30.6
== END 2023-12-08 14:10 | disposition home or self-care (01) ==
PROVIDERS: PCP Nurse Practitioner Primary Care; Visit Provider Internal Medicine
DX: I25.10 Atherosclerotic heart disease of native coronary artery without angina pectoris (principal); Z95.5 Presence of coronary angioplasty implant and graft; E11.65 Type 2 diabetes mellitus with hyperglycemia; I10 Essential (primary) hypertension; E78.5 Hyperlipidemia, unspecified
CPT/HCPCS: 99214

== ENCOUNTER → 2023-12-08 13:40 | Outpatient (BNVA) | payer MEDICAID, SELFPAY | PROVIDERS: PCP Nurse Practitioner Primary Care; Visit Provider Internal Medicine | DX: I25.10 Atherosclerotic heart disease of native coronary artery without angina pectoris (principal); I10 Essential (primary) hypertension; E78.5 Hyperlipidemia, unspecified; E11.65 Type 2 diabetes mellitus with hyperglycemia; Z79.4 Long term (current) use of insulin; Z79.82 Long term (current) use of aspirin; Z79.899 Other long term (current) drug therapy; Z95.5 Presence of coronary angioplasty implant and graft | CPT/HCPCS: 99212 ==

== ENCOUNTER 2023-12-28 08:37 | Emergency (ER) | payer MEDICAID, SELFPAY ==
--- NOTE | 2023-12-28 08:45 | ECG_ITS ---
Test Reason : weakness Blood Pressure : / mmHG Vent. Rate : 083 BPM Atrial Rate : 083 BPM P-R Int : 132 ms QRS Dur : 084 ms QT Int : 356 ms P-R-T Axes : 053 007 056 degrees QTc Int : 418 ms Normal sinus rhythm Nonspecific ST and T wave abnormality Abnormal ECG When compared with ECG of 20-NOV-2016 03:36, No significant change was found Referred By: Generic ED Physician Electronically Signed By:MIKE SKAGGS MD
[2023-12-28 08:47] VITALS: BP 154/86; PULSE 92; RESP 17; TEMP 36.4; O2SAT 98; BMI 28.7
[2023-12-28 08:55] LABS: Glucose, Whole Blood 122 mg/dL (60-115)
[2023-12-28 08:58] LABS: MANUAL DIFF FLAG NO
[2023-12-28 09:00] LABS: Basophils Absolute Auto 0.1 X10*3/uL (0.0-0.2); Basophils Percent Auto 0.5 % (0-2); Eosinophils Percent Auto 0.3 % (0-4); Hematocrit 37.4 % (37.0-47.0); Hemoglobin 13.2 g/dl (12.0-16.0); Imm Gran Abs Auto 0.03 X10*3/uL (0.00-0.03); Imm Gran Pct Auto 0.3 % (0.0-0.4); Lymphocytes Absolute Auto 1.7 X10*3/uL (1.2-4.9); Lymphocytes Percent Auto 17.8 % (20-40); Mean Corpuscular HGB Conc 35.3 g/dl (31.0-35.0); Mean Corpuscular Hemoglobin 30.8 pg (27.0-33.0); Mean Corpuscular Volume 87.2 fL (80.0-98.0); Mean Platelet Volume 10.3 fL (9.4-12.3); Monocytes Absolute Auto 0.6 X10*3/uL (0.1-1.2); Neutrophils Percent Auto 75.1 % (45-73); Platelet Count 277 X10*3/uL (160-400); Red Blood Count 4.29 X10*6/uL (4.20-5.50); Red Cell Distribution Width 12.1 % (11.0-16.0); White Blood Count 9.4 X10*3/uL (4.8-10.8)
[2023-12-28 09:21] LABS: IDNOW Serial# 152EDE1D; Influenza A Negative (Negative); Influenza B2 Negative (Negative)
[2023-12-28 09:38] LABS: Anion Gap 12 (12-20); Blood Urea Nitrogen 6 mg/dL (9-16); Calcium 10.1 mg/dL (8.4-10.2); Carbon Dioxide 27 mmol/L (22-29); Chloride 108 mmol/L (96-108); Creatinine Clr Calc Pharmacy 58.1; Estimated Glomerular Filt Rate > 60; Ethanol < 10 mg/dL; Glucose Random 127 mg/dL (60-115); Potassium 3.4 mmol/L (3.3-5.1); Sodium 144 mmol/L (135-145)
== END 2023-12-28 12:10 | disposition left against medical advice (07) ==
LOC: HO.ED 12:08
PROVIDERS: Emergency Medicine; Emergency Provider Emergency Medicine; PCP Nurse Practitioner Primary Care
DX: R53.1 Weakness (principal); R42 Dizziness and giddiness; R51.9 Headache, unspecified; Z11.52 Encounter for screening for COVID-19; Z91.81 History of falling; Z53.21 Procedure and treatment not carried out due to patient leaving prior to being seen by health care provider
CPT/HCPCS: 36415; 80048; 80307; 82947; 85025; 87502; 93005; 99283

== ENCOUNTER → 2023-12-28 08:45 | Outpatient (BNV) | payer MEDICAID, SELFPAY | PROVIDERS: PCP Nurse Practitioner Primary Care; Visit Provider Internal Medicine Cardiovascular Disease | DX: R94.31 Abnormal electrocardiogram [ECG] [EKG] (principal) | CPT/HCPCS: 93010 ==

== ENCOUNTER 2024-01-06 13:56 | Outpatient (AMB) | payer MEDICAID, SELFPAY ==
--- NOTE | 2024-01-06 14:09 | A.OFFVIS_ITS ---
Intake Vital Signs 01/06/24 14:10 Height 5 ft 1 in Weight 154 lb BMI 29.1 BP 106/79 Blood Pressure Location Lt brachial Position Sitting Pulse 86 Intake Visit Reasons: follow up req by pt Intake Note: Patient req follow up for swallowing problem Patient cc: swallowing problems with liquid, and abdominal pain with bloating, med is helping with GERD. Orthopedic Radiologic Technologist Required: Yes Orthopedic Radiologic Technologist Name: [facility] [place] Accompanied by: Self / Same As Patient Allergies No Known Allergies Allergy (Verified 01/06/24 14:09) HPI follow up req by pt HPI Details LAST VISIT: GERD (gastroesophageal reflux disease) Patient reports that when she takes omeprazole her symptoms are completely suppressed. I will refill her script, however eventually needs to wean her off to maybe once a day. Patient denies any dyspepsia, dysphagia odynophagia. Discussed with patient avoiding dietary triggers and late night snacking. Staying upright for minimum 3 hours after meals discussed with patient. Constipation Patient reports that she has been moving her bowels well. Reports that Colace works for her and she can continue taking that. Patient was also encouraged to drink plenty fluids and increase activity to promote better bowel motility. Elevated LFTs Elevated LFTs in the past. We will repeat liver enzymes today and order ultrasound of abdomen with elastography. Patient however is on atorvastatin. Patient was last seen by phys asst in January. If she continues to have elevation in her liver enzymes we might have to change her statin to rosuvastatin. I will see patient in 6 months we will repeat liver enzymes today and again in 6 months. I will see her sooner if she will have any GI concerning symptoms. Patient is agreeable to this plan and verbalizes understanding of instructions. She was given the opportunity to ask questions and all questions answered. ? Thank you for allowing me to participate in her care Plan Orders Orders Liver Panel 07/21/22 R10.9 US abdomen comp w elastography 07/21/22 R79.89 Medications Refilled omeprazole 20 mg PO BID 180 caps 5RF TODAY'S VISIT Patient is here today for requested visit. Patient was seen by me last time in 2021 and has not followed up with appointment. Patient was sent to do ultrasound of her abdomen with elastography due to increased liver enzymes and has not done the ultrasound yet. Patient reports that since the last time I have seen her she has been having trouble swallowing even liquids. This happens right in her throat when she swallows. Patient reports that this has been going on for the last few weeks. States that she has had sinus problems and has lot of postnasal drip. Patient states that her throat feels scratchy the whole time. Patient denies any fever or chills. Denies any cough or shortness of breath. Patient also reports that she has been taking omeprazole and does not feel like is helping her with has acid reflux. Patient reports postprandial abdominal bloating and epigastric discomfort. Patient did not change any of her diet. Patient denies melena, hematochezia, unintentional weight loss or ribbon like stools. [facility] Medical History CAD (coronary artery disease) Constipation Diabetes type 2, uncontrolled Diabetic polyneuropathy associated with type 2 diabetes mellitus Dyslipidemia Elevated LFTs GERD (gastroesophageal reflux disease) Hypertension intermediate (current) use of insulin Surgical History Hx of endoscopy Family History Father No problems noted. Mother Hx of colon cancer, stage I Hx of diabetes insipidus Social History Household Members: None Alcohol intake: former Patient Tobacco Use Status: Former Tobacco user Quit Date: 2 months ago Review of Systems Const Denies weight gain and Denies weight loss ENT Reports no additional complaints, Reports dysphagia and Denies odynophagia Card Reports no additional complaints Resp Reports no additional complaints GI Reports abdominal pain (Epigastric), Denies belching, Denies melena, Reports bloating, Denies change in bowel habits, Reports dysphagia, Denies excessive fla tus, Reports dyspepsia, Denies heartburn, Denies diarrhea, Denies loose stools, Denies nausea, Denies odynophagia and Denies vomiting Reports no additional complaints Musc Reports no additional complaints Neuro Reports no additional complaints Psych Reports no additional complaints Endo Reports no additional complaints Physical Exam Vital Signs: Last Vital Signs Pulse 86 01/06/24 14:10 BP 106/79 01/06/24 14:10 BMI result Body Mass Index 29.1 Const General: healthy appearing, no acute distress and well developed Nutritional Appearance: obese Orientation/consciousness: patient oriented x3 Resp Effort & Inspection: normal respiratory effort, able to speak in complete sentences, no tracheal deviation and symmetric chest movement Auscultation: clear to auscultation bilaterally Cardio Rate: regular rate GI Inspection: Yes normal to inspection, No distended and Yes obesity Palpation (GI): Soft to palpation, not firm, nontender and No hepatosplenomegaly present Auscultation: normal bowel sounds General: Yes no CVA tenderness Back/Spine/Pelvis Back: no CVA tenderness Skin General skin exam: elasticity normal, turgor normal and dry skin Neuro General: patient oriented x3 Psych Appearance: grossly normal Mental Status: mental status grossly normal Assessment & Plan Assessment & Plan (1) Elevated LFTs: Code(s): R79.89 - Other specified abnormal findings of blood chemistry (2) GERD (gastroesophageal reflux disease): Code(s): K21.9 - Gastro-esophageal reflux disease without esophagitis Qualifiers: Esophagitis presence: esophagitis presence not specified Qualified Code (s): K21.9 - Gastro-esophageal reflux disease without esophagitis (3) Dysphagia: Code(s): R13.10 - Dysphagia, unspecified Qualifiers: Dysphagia type: oropharyngeal phase Qualified Code(s): R13.12 - Dysphagia, oropharyngeal phase (4) Postprandial abdominal bloating: Code(s): R14.0 - Abdominal distension (gaseous) (5) Postprandial epigastric pain: Code(s): R10.13 - Epigastric pain Plan Patient will stop taking omeprazole and I will start her on pantoprazole in the morning. Patient will take famotidine at bedtime. Discussed with patient avoiding dietary triggers and late night snacking. Staying upright for minimum 3 hours after meals discussed with patient. Low FODMAP diet discussed with patient as well. List of food recommended as well as list of food to avoid given to patient. Patient will repeat liver enzymes today and we will send her for abdominal ultrasound with elastography. Patient will be sent for modified barium swallow. Patient was encouraged to take her Flonase twice a day for 1 week then daily to decrease the inflammation and postnasal drip. She will return in 2 months, sooner on as needed basis. Patient is agreeable to plan of care and verbalizes understanding of instructions. She was given the opportunity to ask questions all questions answered. Thank you for allowing me to participate in her care Orders: Orders Liver Panel Today R74.01 - Elevation of levels of liver transaminase levels US abdomen comp w elastography Today R79.89 - Other specified abnormal findings of blood chemistry [place] barium swallow modified Today R13.10 - Dysphagia, unspecified Medications: New pantoprazole take one tablet half an hour before breakfast 40 mg PO DAILY 30 tabs 2RF K21.9 - Gastro-esophageal reflux disease without esophagitis famotidine 40 mg PO BEDTIME 30 tabs 3RF K21.9 - Gastro-esophageal reflux disease without esophagitis Discontinued omeprazole Discontinued Reason: Doctor's Order 20 mg PO BID 180 caps 5RF Coding Level of Care Code Est Pt Level 4 (91957) Diagnoses Elevated LFTs R79.89 Gastroesophageal reflux disease, unspecified whether esophagitis present K21.9 Esophagitis presence: esophagitis presence not specified Oropharyngeal dysphagia R13.12 Dysphagia type: oropharyngeal phase Postprandial abdominal bloating R14.0 Postprandial epigastric pain R10.13 Time Spent (min) 35 Comment 25 minutes spent with patient and additional 10 minutes spent reviewing her records
[2024-01-06 14:10] VITALS: BP 106/79; PULSE 86; BMI 29.1
== END 2024-01-06 14:45 | disposition home or self-care (01) ==
PROVIDERS: PCP Nurse Practitioner Primary Care; Visit Provider Nurse Practitioner Family
DX: R79.89 Other specified abnormal findings of blood chemistry (principal); K21.9 Gastro-esophageal reflux disease without esophagitis; R13.12 Dysphagia, oropharyngeal phase; R14.0 Abdominal distension (gaseous); R10.13 Epigastric pain
CPT/HCPCS: 99214

== ENCOUNTER 2024-01-06 13:56 | Outpatient (REF) | payer MEDICAID, SELFPAY ==
[2024-01-06 15:41] LABS: Alanine Aminotransferase 17 U/L (0-31); Albumin Level 4.3 g/dL (3.5-5.0); Alkaline Phosphatase 92 U/L (39-117); Aspartate Amino Transferase 21 U/L (5-31); Bilirubin Direct 0.2 mg/dL (0.0-0.5); Bilirubin Total 0.4 mg/dL (0.0-1.0); Phosphorus 2.1 mg/dL (2.7-4.5); Total Protein 7.1 g/dL (6.5-8.0)
[2024-01-11 13:04] LABS: VITAMIN D (1,25 OH) D3 49 pg/mL; Vit D (1,25-Dihydroxy) Total 63 pg/mL (18-72); Vitamin D (1,25 OH) D2 14 pg/mL
== END 2024-01-06 13:57 | disposition home or self-care (01) ==
LOC: HO.LAB 13:56
PROVIDERS: Absent Provider Nurse Practitioner Primary Care; PCP Nurse Practitioner Primary Care; Visit Provider Nurse Practitioner Family
DX: E83.52 Hypercalcemia (principal); R74.01 Elevation of levels of liver transaminase levels; K21.9 Gastro-esophageal reflux disease without esophagitis; R79.89 Other specified abnormal findings of blood chemistry; R13.12 Dysphagia, oropharyngeal phase; R14.0 Abdominal distension (gaseous); R10.13 Epigastric pain
CPT/HCPCS: 36415; 80076; 82310; 82652; 83970; 84100; 99212

== ENCOUNTER 2024-01-12 07:42 | Outpatient (REF) | payer MEDICAID, SELFPAY ==
--- NOTE | ~2024-01-12 | US_ITS ---
EXAMINATION: US COMPLETE ABDOMEN WITH LIVER ELASTOGRAPHY CLINICAL INFORMATION: Elevated LFTs COMPARISON: Abdominal ultrasound 06/16/2017, CT scan abdomen and pelvis 08/16/2018 TECHNIQUE: Real-time imaging of the abdominal viscera. Noninvasive ultrasound liver fibrosis assessment is performed using Edgar ElastPQ point quantification shear wave elastography (2D-SWE) with a C5-2 MHz transducer. Multiple elastography samples are obtained. FINDINGS: PANCREAS: Normal. The visualized pancreatic head and body are normal in appearance. The remainder of the pancreas is obscured from visualization by the overlying bowel gas. ABDOMINAL AORTA: The proximal, middle, and distal aortic segments are normal in caliber. INFERIOR VENA CAVA: Visualized portions are normal. LIVER: Normal. There is mild increased echogenicity of the liver consistent with mild hepatic steatosis. No focal lesion or intrahepatic biliary duct dilatation. The right lobe measures 14.7 cm in length. The left lobe measures 7.6 cm in length. Portal flow is hepatopedal. Shear wave liver elastography median stiffness is 1.46 m/s (reference: normal median stiffness is 1.3 m/s or less). (Previously 1.12 m/s) IQR/median stiffness to assess sampling precision is 0.08 (reference: good quality data set is IQR/median stiffness of 0.15 or less). The technologist questions accuracy of elastography measurements due to patient movement. GALLBLADDER: Normal. The gallbladder is physiologically distended without evidence of stones, sludge, polyps, wall thickening or pericholecystic fluid. COMMON BILE DUCT: Normal in caliber measuring 0.3 cm in diameter. RIGHT KIDNEY: Normal. No hydronephrosis. No renal calculi or focal parenchymal lesions. The kidney measures 9.1 cm in maximum dimension. LEFT KIDNEY: Normal. No hydronephrosis. No renal calculi or focal parenchymal lesions. The kidney measures 10.0 cm in maximum dimension. SPLEEN: Normal. The spleen measures 11.2 cm in maximum dimension. FREE FLUID: None. US/US abdomen comp w elastography IMPRESSION: 1. Increased hepatic echogenicity consistent with hepatic steatosis. 2. Liver elastography: In the absence of other known clinical signs, measurements rule out compensated advanced chronic liver disease. If there are known clinical signs, further testing may be needed for confirmation. When compared with prior exam, there is a statistically significant increase in liver stiffness (increase at least 10%). The technologist questions the accuracy of elastography measurements due to patient movement. REFERENCE: Society of Radiologists in Ultrasound Liver Stiffness Thresholds (2020): LIVER STIFFNESS THRESHOLDS: *Liver Stiffness equal or less than 1.3 m/s: High probability of being normal. *Liver Stiffness less than 1.7 m/s: In the absence of other known clinical signs, rules out compensated advanced chronic liver disease. *Liver Stiffness 1.7-2.1 m/s: Suggestive of compensated advanced chronic liver disease but need further test for confirmation. *Liver Stiffness over 2.1 m/s: Rules in compensated advanced chronic liver disease. *Liver Stiffness over 2.4 m/s: Suggestive of clinically significant portal hypertension. QUALITY OF DATA SET: *IQR/Median value equal or less than 0.15 implies a quality data set. *IQR/Median value over 0.15 implies a poor quality data set. SIGNIFICANT CHANGE FROM PRIOR EXAM: Significant change if liver stiffness measurement is 10% or greater from prior exam. OTHER CONSIDERATIONS: The stage of liver fibrosis may be overestimated in the setting of acute hepatitis, liver inflammation, elevated liver function tests, hepatic vascular congestion, obstructive cholestasis, non-fasting state, and infiltrative diseases such as amyloidosis and lymphoma. In some patients with NAFLD, the liver stiffness thresholds for compensated advanced chronic liver disease may be lower. In causes other than viral hepatitis and NAFLD, liver stiffness thresholds are not well established.
[2024-01-12 10:35] LABS: Phosphorus 3.2 mg/dL (2.7-4.5)
== END 2024-01-12 07:43 | disposition home or self-care (01) ==
LOC: HO.US 07:42
PROVIDERS: PCP Nurse Practitioner Primary Care; Visit Provider Nurse Practitioner Family
DX: R79.89 Other specified abnormal findings of blood chemistry (principal); E83.39 Other disorders of phosphorus metabolism
CPT/HCPCS: 36415; 76700; 76981; 84100

== ENCOUNTER 2024-02-08 10:04 | Outpatient (REF) | payer MEDICAID, SELFPAY ==
--- NOTE | ~2024-02-08 | FL_ITS ---
EXAMINATION: Modified Barium Swallow CLINICAL INFORMATION: Dysphagia COMPARISON: None TECHNIQUE: Modified barium swallow was performed under lateral fluoroscopy with patient in standing position. Different consistency of barium mixed with liquids and solids of varying consistencies was administered by the speech therapist. Exam was recorded in the fluoroscopy suite. FINDINGS: No laryngeal penetration or aspiration was seen during this examination. Prominent ventral osteophyte arising from C4-C5, without definite mass effect upon the hypopharynx. FLUOROSCOPY TIME: 1 minute 15 seconds Number of Spot Images: 1 DOSE AREA PRODUCT: 597.7 uGy-m2 (microgray-meter squared) FL/FL barium swallow modified IMPRESSION: No evidence of laryngeal penetration or aspiration during this examination Refer to the speech therapy report for further clarification This procedure was performed by Andrea Trevino PA-C, and supervised by Dr. Carney
--- NOTE | 2024-02-24 13:50 | MHC.SL.IMP ---
Date of Plan of Treatment: 02/08/24 Onset of Symptoms/Illness: 02/08/24 Date Treatment Started: 02/08/24 Admitting Diagnosis: Dysphagia Primary Speech & Language Diagnosis: R13.10 Dysphagia Reason for Today's Visit: 66850 Modified Barium Swallow Study Comments: Pre-evaluation Dietary Consistencies: Regular Pre-evaluation Liquid Consistency: Thin Pre-evaluation Medication Administration: Whole with Liquid Medical History: Acid Reflux Oral Motor Exam Facial Symmetry: Normal for Patient Symmetrical Oral Expression Ability: No Impairment Is patient able to manage secretions?: Y Is patient able to produce volitional cough?: Y Food and Liquid Trials: Oral Impairment: Lip Closure: 1=Interlabial escape; no progression to anterior tip Oral Impairment: Tongue Control During Bolus Hold: 2=Posterior escape of less than half of bolus Oral Impairment: Bolus Preparation/Mastication: 2=Disorganized chewing/mashing with solid pieces of bolus Oral Impairment: Bolus Transport/Lingual Motion: 0=Brisk tongue motion Oral Impairment: Oral Residue: 1=Trace residue lining oral structures Oral Impairment:Initiation of Pharyngeal Swallow: 3=Bolus head in pyriforms Pharyngeal Impairment: Soft Palate Elevation: 0=No bolus between soft palate (SP)/pharyngeal wall (PW) Pharyngeal Impairment: Laryngeal Elevation: 0=Complete superior movement of thyroid cartilage (see description) Pharyngeal Impairment: Anterior Hyoid Excursion: 1=Partial anterior movement Pharyngeal Impairment: Epiglottic Movement: 1=Partial inversion Pharyngeal Impairment: Laryngeal Vestibular Closure:: 0=Complete: no air/contrast in laryngeal vestibule Pharyngeal Impairment: Pharyngeal Stripping Wave: 0=Present: complete Pharyngeal Impairment: Pharyngeal Contraction: Did not test Pharyngeal Impairment: Pharyngoesophageal Segment Openin=Partial distention/partial duration: partial obstruction of flow Pharyngeal Impairment: Tongue Base (TB) Retraction: 1=Trace column of contrast/air between TB and posterior PW Pharyngeal Impairment: Pharyngeal Residue: 1=Trace residue within or on pharyngeal structures Pharyngeal Impairment: Esophageal Clearance Upright Position: Did not test Impressions and Recommendations Clinical Observations: MBSImP Results: Lip closure for intraoral bolus containment resulted in interlabial escape, without progression to the anterior lip. Tongue control during bolus hold resulted in posterior escape of less than half of the bolus. Bolus preparation and mastication demonstrated disorganized chewing/mashing with solid pieces of the bolus unchewed. Bolus transport/lingual motion was with brisk tongue motion. Oral residue was a trace, lining oral structures. Initiation of the pharyngeal swallow occurred when the bolus head was in the pyriform sinuses. Soft palate elevation resulted in no bolus between the soft palate and the pharyngeal wall. Laryngeal elevation demonstrated complete superior movement of the thyroid cartilage with complete approximation of the arytenoids to the epiglottic petiole. Anterior hyoid excursion demonstrated partial anterior movement. Epiglottic movement resulted in partial inversion. Laryngeal vestibular closure was complete, as indicated by no air or contrast within the laryngeal vestibule at the height of the swallow. Pharyngeal stripping wave was present and complete. Pharyngeal contraction could not be determined due to logistical reasons not related to physiologic impairment. Pharyngoesophageal segment opening demonstrated partial distension/partial duration, with partial obstruction of bolus flow. Tongue base retraction allowed a trace column of contrast or air between the retracted tongue base and the posterior pharyngeal wall. Pharyngeal residue was a trace within or on pharyngeal structures. Esophageal clearance in the upright position could not be assessed due to logistical reasons not related to physiologic impairment. SUMMARY: No penetration or aspiration was present during the study. She tolerated Puree, Regular Solid and Thin Liquids. She did not report any sensation of food feeling stuck during the study. Mild pharyngeal was present after Puree Solids and Regular Solids, however not deemed significant enough to warrant a sensation of food getting stuck. Incidental finding of a rather prominent anterior cervical osteophyte between C5 and C6. Please confirm with Radiologist report. The prominence is noted to be just parallel to the opening of her upper esophageal sphincter. This in combination with history of GERD, may be also contributing to her symptoms. Results were reviewed with Pt and Revenue Agent, she was relieved to hear that no part of the bolus was actually stuck in her throat. Liquid Intake Recommendation: Thin Liquid Intake Strategies: Dietary Recommendations: IDDSI Level 6 Soft and Bite-Sized Solids Medication Administration: Whole with Liquid Please contact the pharmacy regarding appropriate crushable or liquid drug formulations that are available whenever modified delivery is recommended. Compensatory Strategies Recommended: Sitting Upright (90 deg) Small Bites and Sips Alternate Liquids/Solids Rate of Ingestion Change Supervision during eating and or drinking: Intermittent Supervision Recommended Treatments: Compens. Strategy Educat. Recommendation for Speech Therapy: NA:Typical Evaluation Text Comment: Recommended the patient consider a Soft and Bite-Sized Solid (IDDSI Level 6) and Thin Liquid diet. She was shown to have difficulty preparing a solid bolus leading to concerns that chewy meats and breads would be difficult to break down for her. Timeline to reassess: PRN Member Certification Manager Clinician/Clinical Fellow: No Supervisory Statement: N/A Speech Language Pathologist: Reynaldo Douglas M.A., CCC-LABEL SEWER
== END 2024-02-08 10:05 | disposition home or self-care (01) ==
LOC: HO.XRAY 10:04
PROVIDERS: Visit Provider Nurse Practitioner Family
DX: R13.10 Dysphagia, unspecified (principal)
CPT/HCPCS: 74230; 92611

== ENCOUNTER → 2024-02-08 10:30 | Outpatient (BNV) | payer MEDICAID, SELFPAY | PROVIDERS: Visit Provider Physician Assistant Surgical | DX: R13.10 Dysphagia, unspecified (principal) | CPT/HCPCS: 74230 ==

== ENCOUNTER 2024-03-09 12:52 | Outpatient (AMB) | payer MEDICAID, SELFPAY ==
[2024-03-09 12:54] VITALS: BP 140/79; BMI 29.6
--- NOTE | 2024-03-09 12:54 | A.OFFVIS_ITS ---
Vital Signs 03/09/24 12:54 Height 5 ft 1 in Weight 156 lb 8.451 oz BMI 29.6 BP 140/79 H Blood Pressure Location Lt brachial Position Sitting Intake Visit Reasons: 2 month follow up GERD, dysphasia Intake Note: Patient in office today in follow up of US and barium swallow. CC: Patient c/o feeling like something in her throat. She states that the X rays showed a bone from the back of her neck that is coming out of place. She c/o abdominal pain. Denies other GI symptoms. Ice Hockey Coach Required: Yes Ice Hockey Coach Name: daughter Accompanied by: Daughter Allergies No Known Allergies Allergy (Verified 03/09/24 13:01) HPI HPI 2 month follow up GERD, dysphasia: Details: LAST VISIT Elevated LFTs GERD (gastroesophageal reflux disease) Dysphagia Postprandial abdominal bloating Postprandial epigastric pain Plan Patient will stop taking omeprazole and I will start her on pantoprazole in the morning. Patient will take famotidine at bedtime. Discussed with patient avoiding dietary triggers and late night snacking. Staying upright for minimum 3 hours after meals discussed with patient. Low FODMAP diet discussed with patient as well. List of food recommended as well as list of food to avoid given to patient. Patient will repeat liver enzymes today and we will send her for abdominal ultrasound with elastography. Patient will be sent for modified barium swallow. Patient was encouraged to take her Flonase twice a day for 1 week then daily to decrease the inflammation and postnasal drip. She will return in 2 months, sooner on as needed basis. Patient is agreeable to plan of care and verbalizes understanding of instructions. She was given the opportunity to ask questions all questions answered. ? Thank you for allowing me to participate in her care Orders Orders Liver Panel Today R74.01 US abdomen comp w elastography Today R79.89 FL barium swallow modified Today R13.10 Medications New pantoprazole take one tablet half an hour before breakfast 40 mg PO DAILY 30 tabs 2RF K21.9 famotidine 40 mg PO BEDTIME 30 tabs 3RF K21.9 Discontinued omeprazole Discontinued Reason: Doctor's Order 20 mg PO BID 180 caps 5RF TODAY'S VISIT: Patient is here today for follow-up and to discuss lab results, modified barium swallow results as well as ultrasound of the abdomen with liver elastography results. Increased echogenicity of the liver suggesting hepatic steatosis. Modified barium swallow showed no laryngeal penetration or aspiration throughout the exam. Thin liquid with soft solid food recommended. Prominent ventral osteophytes seen rising from C4-C5 region that could be causing patient to feel like she has something stuck in her throat. Patient reports that she is currently taking pantoprazole and famotidine and reports that she has been feeling better, however she will still occasionally get acid reflux after eating. Patient reports that she is trying to change her diet. Eating better and healthier. Patient reports that she is moving her bowels well without any issues. Patient denies any other GI concerning symptoms. [facility] Medical History (Updated 03/21/24 @ 20:57 by Clementine Lopez [facility]) Osteophyte of cervical spine Elevated LFTs CAD (coronary artery disease) Dyslipidemia Hypertension Diabetic polyneuropathy associated with type 2 diabetes mellitus group home (current) use of insulin Diabetes type 2, uncontrolled GERD (gastroesophageal reflux disease) Constipation Surgical History Hx of endoscopy Family History Father No problems noted. Mother Hx of colon cancer, stage I Hx of diabetes insipidus Social History Household Members: None Alcohol intake: former Patient Tobacco Use Status: Former Tobacco user Quit Date: 2 months ago Review of Systems Const Denies weight gain and Denies weight loss ENT Reports no additional complaints, Reports dysphagia and Denies odynophagia Card Reports no additional complaints Resp Reports no additional complaints GI Denies abdominal pain, Denies belching, Denies melena, Denies bloating, Denies change in bowel habits, Reports dysphagia, Denies excessive flatus, Denies dyspepsia, Denies heartburn, Denies diarrhea, Denies loose stools, Denies nausea, Denies odynophagia and Denies vomiting Reports no additional complaints Musc Reports no additional complaints Neuro Reports no additional complaints Psych Reports no additional complaints Endo Reports no additional complaints Physical Exam Vital Signs: Last Vital Signs BP 140/79 H 03/09/24 12:54 BMI result Body Mass Index 29.6 Const General: healthy appearing, no acute distress and well developed Nutritional Appearance: obese Orientation/consciousness: patient oriented x3 Resp Effort & Inspection: normal respiratory effort, able to speak in complete sentences, no tracheal deviation and symmetric chest movement Auscultation: clear to auscultation bilaterally Cardio Rate: regular rate GI Inspection: Yes normal to inspection, No distended and Yes obesity Palpation (GI): Soft to palpation, not firm, nontender and No hepatosplenomegaly present Auscultation: normal bowel sounds General: Yes no CVA tenderness Back/Spine/Pelvis Back: no CVA tenderness Skin General skin exam: elasticity normal, turgor normal and dry skin Neuro General: patient oriented x3 Psych Appearance: grossly normal Mental Status: mental status grossly normal Results Reviewed Results Reviewed: Laboratory Tests 01/06/24 15:00 Total Bilirubin 0.4 Direct Bilirubin 0.2 AST 21 ALT 17 BARIUM SWALLOW FINDINGS: No laryngeal penetration or aspiration was seen during this examination. Prominent ventral osteophyte arising from C4-C5, without definite mass effect upon the hypopharynx. FLUOROSCOPY TIME: 1 minute 15 seconds Number of Spot Images: 1 DOSE AREA PRODUCT: 597.7 uGy-m2 (microgray-meter squared) FL/FL barium swallow modified IMPRESSION: No evidence of laryngeal penetration or aspiration during this examination Refer to the speech therapy report for further clarification SPEECH THERAPY ASSESSMENT SUMMARY: No penetration or aspiration was present during the study. She tolerated Puree, Regular Solid and Thin Liquids. She did not report any sensation of food feeling stuck during the study. Mild pharyngeal was present after Puree Solids and Regular Solids, however not deemed significant enough to warrant a sensation of food getting stuck. Incidental finding of a rather prominent anterior cervical osteophyte between C5 and C6. Please confirm with Radiologist report. The prominence is noted to be just parallel to the opening of her upper esophageal sphincter. This in combination with history of GERD, may be also contributing to her symptoms. Results were reviewed with Pt and Ice Hockey Coach, she was relieved to hear that no part of the bolus was actually stuck in her throat. Liquid Intake Recommendation: Thin Liquid Intake Strategies: Dietary Recommendations: IDDSI Level 6 Soft and Bite-Sized Solids Medication Administration: Whole with Liquid Please contact the pharmacy regarding appropriate crushable or liquid drug formulations that are available whenever modified delivery is recommended. Compensatory Strategies Recommended: Sitting Upright (90 deg)Small Bites and Sips Alternate Liquids/Solids Rate of Ingestion Change Supervision during eating and or drinking: Intermittent Supervision Recommended Treatments: Compens. Strategy Educat. Recommendation for Speech Therapy: NA:Typical EvaluationText Comment: Recommended the patient consider a Soft and Bite-Sized Solid (IDDSI Level 6) and Thin Liquid diet. She was shown to have difficulty preparing a solid bolus leading to concerns that chewy meats and breads would be difficult to break down for her. ABDOMINAL ULTRASOUND WITH LIVER ELASTOGRAPHY FINDINGS: PANCREAS: Normal. The visualized pancreatic head and body are normal in appearance. The remainder of the pancreas is obscured from visualization by the overlying bowel gas. ABDOMINAL AORTA: The proximal, middle, and distal aortic segments are normal in caliber. INFERIOR VENA CAVA: Visualized portions are normal. LIVER: Normal. There is mild increased echogenicity of the liver consistent with mild hepatic steatosis. No focal lesion or intrahepatic biliary duct dilatation. The right lobe measures 14.7 cm in length. The left lobe measures 7.6 cm in length. Portal flow is hepatopedal. Shear wave liver elastography median stiffness is 1.46 m/s (reference: normal median stiffness is 1.3 m/s or less). (Previously 1.12 m/s) IQR/median stiffness to assess sampling precision is 0.08 (reference: good quality data set is IQR/median stiffness of 0.15 or less). The technologist questions accuracy of elastography measurements due to patient movement. GALLBLADDER: Normal. The gallbladder is physiologically distended without evidence of stones, sludge, polyps, wall thickening or pericholecystic fluid. COMMON BILE DUCT: Normal in caliber measuring 0.3 cm in diameter. RIGHT KIDNEY: Normal. No hydronephrosis. No renal calculi or focal parenchymal lesions. The kidney measures 9.1 cm in maximum dimension. LEFT KIDNEY: Normal. No hydronephrosis. No renal calculi or focal parenchymal lesions. The kidney measures 10.0 cm in maximum dimension. SPLEEN: Normal. The spleen measures 11.2 cm in maximum dimension. FREE FLUID: None. US/US abdomen comp w elastography IMPRESSION: 1. Increased hepatic echogenicity consistent with hepatic steatosis. 2. Liver elastography: In the absence of other known clinical signs, measurements rule out compensated advanced chronic liver disease. If there are known clinical signs, further testing may be needed for confirmation. When compared with prior exam, there is a statistically significant increase in liver stiffness (increase at least 10%). The technologist questions the accuracy of elastography measurements due to patient movement. Assessment & Plan Assessment & Plan (1) Elevated LFTs: Code(s): R79.89 - Other specified abnormal findings of blood chemistry Category: Medical (2) GERD (gastroesophageal reflux disease): Code(s): K21.9 - Gastro-esophageal reflux disease without esophagitis Category: Medical Qualifiers: Esophagitis presence: esophagitis presence not specified Qualified Code(s): K21.9 - Gastro-esophageal reflux disease without esophagitis (3) Dysphagia: Code(s): R13.10 - Dysphagia, unspecified Qualifiers: Dysphagia type: oropharyngeal phase Qualified Code(s): R13.12 - Dysphagia, oropharyngeal phase (4) Postprandial abdominal bloating: Code(s): R14.0 - Abdominal distension (gaseous) (5) Postprandial epigastric pain: Code(s): R10.13 - Epigastric pain (6) Osteophyte of cervical spine: Code(s): M25.78 - Osteophyte, vertebrae Category: Medical Plan Referral to neuro as patient continues to have feeling like there is something stuck in her throat. As mentioned above modified barium swallow done and it showed ventral osteophyte arising from C4 C5 that could be causing dysphagia. Patient denies any odynophagia. Will start her on Nexium. Continue avoiding dietary triggers. Patient will take 1 Colace in the evening. Increase fluid intake and activity to promote better bowel motility recommendation made by speech therapist in forced with patient. Patient will follow-up in our office in 2 months to discuss going for upper endoscopy and colonoscopy. She will call our office if she will experience any GI concerning symptoms. Patient is agreeable to this plan and verbalizes understanding of instructions. She was given the opportunity to ask questions and all questions answered. Thank you for allowing me to participate in her care Orders: Referrals Neuro Spine Referral R13.10 - Dysphagia, unspecified Medications: New esomeprazole magnesium (Nexium) 40 mg PO DAILY 30 caps 5RF K21.9 - Gastro- esophageal reflux disease without esophagitis Changed From docusate sodium 100 mg PO BID PRN Constipation To docusate sodium (Colace) 100 mg PO DAILY 30 caps 3RF Constipation Discontinued pantoprazole take one tablet half an hour before breakfast Discontinued Reason: Doctor's Order 40 mg PO DAILY 30 tabs 2RF K21.9 - Gastro-esophageal reflux disease without esophagitis Coding Level of Care Code Est Pt Level 4 (95635) Diagnoses Elevated LFTs R79.89 Gastroesophageal reflux disease, unspecified whether esophagitis present K21.9 Esophagitis presence: esophagitis presence not specified Oropharyngeal dysphagia R13.12 Dysphagia type: oropharyngeal phase Postprandial abdominal bloating R14.0 Postprandial epigastric pain R10.13 Osteophyte of cervical spine M25.78 Time Spent (min) 40 Comment 25 minutes spent with patient and additional 15 minutes spent reviewing her records
== END 2024-03-09 13:43 | disposition home or self-care (01) ==
PROVIDERS: PCP Nurse Practitioner Primary Care; Visit Provider Nurse Practitioner Family
DX: R79.89 Other specified abnormal findings of blood chemistry (principal); K21.9 Gastro-esophageal reflux disease without esophagitis; R13.12 Dysphagia, oropharyngeal phase; R14.0 Abdominal distension (gaseous); R10.13 Epigastric pain; M25.78 Osteophyte, vertebrae
CPT/HCPCS: 99214

== ENCOUNTER → 2024-03-09 12:52 | Outpatient (BNVA) | payer MEDICAID, SELFPAY | PROVIDERS: PCP Nurse Practitioner Primary Care; Visit Provider Nurse Practitioner Family | DX: R79.89 Other specified abnormal findings of blood chemistry (principal); K21.9 Gastro-esophageal reflux disease without esophagitis; R13.12 Dysphagia, oropharyngeal phase; R14.0 Abdominal distension (gaseous); R10.13 Epigastric pain; M25.78 Osteophyte, vertebrae; K59.00 Constipation, unspecified; Z79.899 Other long term (current) drug therapy | CPT/HCPCS: 99212 ==

== ENCOUNTER 2024-03-23 13:31 | Outpatient (AMB) | payer MEDICAID, SELFPAY ==
--- NOTE | 2024-03-23 13:57 | HO.SPINEOV ---
Intake Visit Reasons: Prominent ventral osteophyte Intake Note: Ms. Myers is here today c/o neck discomfort Microphone Boom Operator Required: Yes Microphone Boom Operator Name: tablet Allergies No Known Allergies Allergy (Verified 03/09/24 13:01) Assessment & Plan Assessment & Plan (1) Osteophyte of cervical spine: Code(s): M25.78 - Osteophyte, vertebrae Category: Medical Plan Dear Clementine, Thank you for referring MRs Myers to our office today. She is a 63-year-old woman who is here in the office today for evaluation of a dysphagia. 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 For about a year or so she has been having a feeling like there is something obstructing her throat when she swallowing. It does not keep her from eating, just feels like the food will not pass down. It is uncomfortable like there is something pressing. As it has been getting worse, but thankfully she has been able to continue taking solid foods and liquids. She underwent a barium swallow and this showed the large anterior osteophytes we see on her imaging and she was sent today to see us. She does report neck pain but denies any pain radiating down the arms. She has reported headaches over the last year so as well which are unusual for her. No myelopathic symptoms. PMH: She is diabetic, I do not see an A1c in the system but she was told last time that it was within normal limits. She has a history of a pulmonary embolus is on Eliquis. She has a history of coronary disease and had a stent done about 10 years ago. She is followed here at [facility] and was told that on recent follow-up studies and visits that her heart is in decent shape. She has a history of hypertension, depression, GERD, elevated LFTs, high cholesterol, diabetic polyneuropathy Social hx: She smokes cigarettes occasionally throughout the week but does not report smoking significant amounts. Denies marijuana or alcohol use Medications: Acarbose, albuterol, Eliquis, baby aspirin, atorvastatin, budesonide, vitamin D3, Colace, Trulicity, Nexium, as zopiclone, famotidine, fenofibrate, fluconazole, Lasix, gabapentin, metformin, insulin, pioglitazone, Zoloft Allergies: Denies any drug allergies Physical exam: She is awake alert oriented, her strength is full in the upper extremities, reflexes are normal, there has no Norm sign. Her gait is normal. Imaging review: The only imaging to review is a modified barium swallow showing large anterior osteophytes at C4-5 and C5-6. The report says that the patient's study was negative for aspiration or obstruction. Impression: 63-year-old female presents to the office today for evaluation of dysphagia that has been going on for over year, who had a modified barium swallow that showed very enlarged anterior osteophytes ventral to the cervical spine. The patient can eat and drink normally but feels a pressure or squeezing type sensation in her esophagus when she is swallowing. It feels like the food does not want to go down. She does report neck pain and headaches but denies any myelopathic or radicular symptoms. Her exam is reassuring. I think we should consider doing a CT of the cervical spine and an MRI just to be better aware of the anatomy and then we can follow up after that. Thank you for allowing us to care for your patient. The total time spent with this visit with this patient was 45 minutes reviewing history, physical exam, modified barium swallow x-ray imaging review, and implementation of treatment plan or further diagnostic testing Josh Guy MD,PhD [facility] Orders: Orders CT cervical spine wo IV con Today M25.78 - Osteophyte, vertebrae MR cervical spine wo con Today M25.78 - Osteophyte, vertebrae Coding Level of Care Code New Pt Level 4 (03127) Diagnoses Osteophyte of cervical spine M25.78
== END 2024-03-23 15:02 | disposition home or self-care (01) ==
PROVIDERS: PCP Nurse Practitioner Primary Care; Referring Provider Nurse Practitioner Family; Visit Provider Physician Assistant
DX: M25.78 Osteophyte, vertebrae (principal)
CPT/HCPCS: 99204

== ENCOUNTER → 2024-03-23 13:31 | Outpatient (BNVA) | payer MEDICAID, SELFPAY | PROVIDERS: PCP Nurse Practitioner Primary Care; Visit Provider Physician Assistant | DX: M25.78 Osteophyte, vertebrae (principal) | CPT/HCPCS: 99212 ==

== ENCOUNTER 2024-04-18 15:39 | Outpatient (REF) | payer MEDICAID, SELFPAY ==
--- NOTE | ~2024-04-18 | MR_ITS ---
EXAMINATION: MR CERVICAL SPINE WITHOUT CONTRAST CLINICAL INFORMATION: Osteophytes of cervical spine, headaches, body aches, unbalanced. COMPARISON: No prior. Cervical spine x-rays 05/15/2014. TECHNIQUE: Multiplanar multisequence MR imaging of the cervical spine was done without IV contrast. Exam performed on a 1.5 Mary GE magnet. FINDINGS: Alignment: Straightening of the normal lordosis with a minimal reversal at C5-C6. There is a very mild levoconvex scoliosis. No significant AP subluxation is identified. Craniocervical Junction/C1-C2 Articulations: Intact and aligned. Imaged Intracranial Structures: Partial empty sella. Otherwise, no abnormalities. Vertebral Bodies/Bone Marrow: No compression deformities. There is no gross bone marrow edema identified. No abnormal infiltrating bone marrow signal. There are ventral prominent osteophytes at C4-C5, C5-C6, and to a lesser degree C6-C7, with relative preservation of disc space, findings suggestive of DISH. Discs: Diffuse loss of disc signal is present. Mild diffuse loss of disc height spanning C3-T1. Bone Marrow: As above. Spinal Cord: The cord is normal in caliber and signal throughout. No evidence of cord impingement is present. Axial Disc Space Images: C2-C3: Small central disc protrusion is present with annular fissuring. This indents upon the ventral thecal sac but does not contact cord. Mild to moderate left greater than right hypertrophic facet changes and mild bilateral uncinate hypertrophy present. There is minimal central canal stenosis. There is minimal bilateral neural foraminal stenosis. C3-C4: There is a broad-based central disc protrusion which indents upon the ventral thecal sac, approaches but does not contact the cord. This results in mild central narrowing. Mild right greater than left hypertrophic facet changes are present, with mild bilateral uncinate hypertrophy, resulting in minimal bilateral neural foraminal narrowing. C4-C5: No significant central canal narrowing or disc pathology evident. Facets are grossly normal with minimal degeneration. Minimal uncinate spurring right greater than left. No significant neural foraminal narrowing. C5-C6: There is an irregular disc osteophyte with annular fissuring centrally and paracentrally. This indents upon the ventral thecal sac, contacts, and minimally flattens the ventral aspect of the cord. There is no cord signal abnormality. There is preserved CSF space both dorsal to and lateral to the cord. There is mild to moderate central canal stenosis. There is prominent uncinate spurring bilaterally right greater than left, and minimal facet degeneration left greater than right. Mild bilateral neural foraminal narrowing is present. C6-C7: Minimal shallow bulging discs present, indenting upon the ventral thecal sac but not contacting the cord. Minimal central canal stenosis. Mild bilateral uncinate and facet hypertrophic changes are present, however there is only minimal bilateral neural foraminal narrowing. C7-T1: Minimal shallow diffuse bulging disc, with central annular fissure. This indents upon the ventral thecal sac but does not contact the cord. There is minimal central canal narrowing. Mild bilateral facet hypertrophy and left greater than right uncinate hypertrophy results in minimal neural foraminal narrowing bilaterally. There is a 4 mm nerve root sleeve cyst in the far lateral left foramen. T1-T4: No significant central canal or neural foraminal narrowing. There is a small central disc protrusion at T2-T3 without significant mass effect. Cervical Soft Tissues: The visualized extracranial head/neck soft tissues are unremarkable within the limitations of the study. No significant adenopathy. The thyroid is largely obscured by a saturation band. Fatty change of the parotids is present. MR/MR cervical spine wo con IMPRESSION: 1. Irregular ventral disc osteophytes at C4-C5, C5-C6, and to a lesser degree C6-C7, with relative preservation of the disc spaces, findings suggestive of underlying DISH. 2. Mild cervical spondylosis, most significant C5-C6 as discussed above. There is no high-grade central canal stenosis, significant neural foraminal stenosis, or significant lateral recess stenosis. Aside from minimal ventral flattening at C5-C6, the cervical spinal cord cord is normal in caliber and signal throughout. 3. Mild multilevel facet and uncinate degeneration. Refer to the body the report for details.
== END 2024-04-18 15:40 | disposition home or self-care (01) ==
LOC: HO.MRI 15:39
PROVIDERS: PCP Nurse Practitioner Primary Care; Visit Provider Physician Assistant
DX: M25.78 Osteophyte, vertebrae (principal)
CPT/HCPCS: 72141

== ENCOUNTER → 2024-04-18 16:19 | Outpatient (BNV) | payer MEDICAID, SELFPAY | PROVIDERS: PCP Nurse Practitioner Primary Care; Visit Provider Radiology Diagnostic Radiology | DX: M25.78 Osteophyte, vertebrae (principal) | CPT/HCPCS: 72141 ==

== ENCOUNTER 2024-04-27 13:19 | Outpatient (REF) | payer MEDICAID, SELFPAY ==
--- NOTE | ~2024-04-27 | CT_ITS ---
EXAMINATION: CT CERVICAL SPINE WITHOUT CONTRAST CLINICAL INFORMATION: Neck pain, vertebral osteophyte COMPARISON: Cervical spine x-ray on 05/15/2014, MRI cervical spine on 04/18/2024 TECHNIQUE: Multiple 2.0 mm axial images were obtained from base of skull to T1 levels without IV contrast enhancement. Sagittal and coronal 2.0 mm bone window images were reconstructed from axial image data. This CT examination was performed using dose optimization techniques as appropriate, variously including the following: *Automated exposure control *Adjustment of mA and/or kV according to patient size (this includes techniques or standardized protocols for targeted exams where dose is matched to indication/reason for exam; i.e. extremities or head) *Use of iterative reconstruction technique DLP: 547.37 mGy-cm FINDINGS: C1/C2: There is marked erosion of the posterior odontoid tip. Bony structures are otherwise intact with normal alignment. There is no spinal stenosis. C2/C3: Bony structures are intact with normal alignment. There is no spinal stenosis. Bilateral C2/C3 neuroforamina are patent. Bilateral apophyseal joints are intact with normal alignment. C3/C4: Bony structures are intact with normal alignment. There is no spinal stenosis. Bilateral C3/C4 neuroforamina are patent. Bilateral apophyseal joints are intact with normal alignment. C4/C5: Bony structures are intact with normal alignment. Large sharp anterior bridging syndesmophytes are present. There is no spinal stenosis. Bilateral C4/C5 neuroforamina are patent. Bilateral apophyseal joints are intact with normal alignment. C5/C6: Bony structures are intact with normal alignment. Large sharp anterior bridging syndesmophytes are present. There is no spinal stenosis. Bilateral C5/C6 neuroforamina are patent. Bilateral apophyseal joints are intact with normal alignment. C6/C7: Bony structures are intact with normal alignment. Anterior bridging syndesmophytes are present. There is no spinal stenosis. Bilateral C6/C7 neuroforamina are patent. Bilateral apophyseal joints are intact with normal alignment. C7/T1: Bony structures are intact with normal alignment. There is no spinal stenosis. Bilateral C7/T1 neuroforamina are patent. Bilateral apophyseal joints are intact with normal alignment. Multilevel bilateral apophyseal joint and uncovertebral joint osteoarthritis with loss of joint space, sclerosis, facet hypertrophy and osteophytosis are seen. CT/CT cervical spine wo IV con IMPRESSION: 1. No evidence of acute fracture or dislocation. 2. Large sharp anterior bridging syndesmophytes are present from C4 to C7. 3. Multilevel bilateral apophyseal joint and uncovertebral joint osteoarthritis. 4. Marked erosion of the posterior odontoid tip. Fleischner guidelines were followed.
== END 2024-04-27 13:20 | disposition home or self-care (01) ==
LOC: HO.CT 13:19
PROVIDERS: PCP Nurse Practitioner Primary Care; Visit Provider Physician Assistant
DX: M25.78 Osteophyte, vertebrae (principal)
CPT/HCPCS: 72125

== ENCOUNTER 2024-05-04 11:06 | Outpatient (AMB) | payer MEDICAID, SELFPAY ==
--- NOTE | 2024-05-04 07:53 | A.OFFVIS_ITS ---
Intake Visit Reasons: lung screening Allergies No Known Allergies Allergy (Verified 03/09/24 13:01) HPI HPI lung screening: Details: Initial visit for this 63yo former smoker with a 40PYH. ([employer] [id number]) Patient started smoking at age 19 for 42 years at 1ppd. Quit 2021. . Denies marijuana use. Denies second hand smoke exposure. Denies exposure to chemicals or substances like asbestos. . Denies known family history of lung cancer. Denies personal history of cancers. Denies chest CT in last year. . Denies recent travel outside the [place]. Denies recent respiratory illness or recent hospitalization for respiratory issues. Reports testing positive for COVID. Admits receiving COVID Vaccine. . Denies fever, chills, new/worsening cough, hemoptysis, hoarseness or dysphagia. Denies significant chest pain, significant dyspnea or unintentional weight loss. Patient Lung Cancer Screening Questionnaire reviewed with patient by provider. . Shared Decision Making Completed. Patient meets criteria. Discussed in detail with patient, the risk vs benefit of LDCT screening. Patient consents to proceed with scan. Discussed and encouraged continued smoking cessation. 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 Mother Hx of colon cancer, stage I Hx of diabetes insipidus Social History (Updated 05/04/24 @ 11:24 by Tracey Moreno PA-C) Household Members: None Alcohol intake: former Patient Tobacco Use Status: Former Tobacco user Years Smoked: (onset 19yo, 1ppd x 42yrs, 40pyh - quit 2021) Assessment & Plan Assessment & Plan (1) Nicotine dependence, cigarettes, uncomplicated: Code(s): F17.210 - Nicotine dependence, cigarettes, uncomplicated Category: Medical Plan: - SDM visit completed today in office. - Patient meets criteria for LDCT for lung cancer screening purposes and is asymptomatic. - Smoking cessation counseling offered. Patients can always call [phone]. - Will arrange for a LDCT scan of the chest for screening purposes at [facility]. - Risks, benefits, and alternatives were discussed in detail and the patient agrees to proceed. - Risks discussed include but are not limited to: radiation exposure, anxiety during testing and while awaiting results, false negatives, false positives and possibility of additional intervention such as further imaging or surgical procedures for benign disease. - Benefits are obviously detection of lung cancer at an early stage which can lead to improved outcomes. - Discussed the importance of screening program compliance with adherence to yearly LDCT scan as scheduled - or sooner interval scans for personalized screening regimen. - Discussed follow up plan. Our office will send a letter discussing results and if needed set up phone call and office visit based on CT findings. - Patient educated on results categorization and the management decisions for suspicious findings potentially found on the screening LDCT scan. Any patient with a Lung RADS score of 3 or 4 will be reviewed by a multidisciplinary team at [facility] to form a plan of action in regards to scan findings. - If further work up is warranted for a suspicious lung finding this will be followed by the Lung Cancer Screening program in conjunction with the Thoracic Surgery Department at [facility]. - A copy of the office note and LDCT will be sent to the patient's PCP - as well as documentation on any associated further plans of care. - Incidental findings on LDCT are the PCP's responsibility. These findings are indicated with an S finding on the LDCT Assessment. A note discussing the findings will be sent to the PCP who is then responsible for further management. - All questions answered.? (2) Personal history of nicotine dependence: Comment: (former smoker - onset 19yo, 1ppd x 42yrs, 40pyh - quit 2021) Code(s): Z87.891 - Personal history of nicotine dependence Category: Medical Plan: - SDM visit completed today in office. - Patient meets criteria for LDCT for lung cancer screening purposes and is asymptomatic. - Smoking cessation counseling offered. Patients can always call [phone]. - Will arrange for a LDCT scan of the chest for screening purposes at [facility]. - Risks, benefits, and alternatives were discussed in detail and the patient agrees to proceed. - Risks discussed include but are not limited to: radiation exposure, anxiety during testing and while awaiting results, false negatives, false positives and possibility of additional intervention such as further imaging or surgical procedures for benign disease. - Benefits are obviously detection of lung cancer at an early stage which can le ad to improved outcomes. - Discussed the importance of screening program compliance with adherence to yearly LDCT scan as scheduled - or sooner interval scans for personalized screening regimen. - Discussed follow up plan. Our office will send a letter discussing results and if needed set up phone call and office visit based on CT findings. - Patient educated on results categorization and the management decisions for suspicious findings potentially found on the screening LDCT scan. Any patient with a Lung RADS score of 3 or 4 will be reviewed by a multidisciplinary team at [facility] to form a plan of action in regards to scan findings. - If further work up is warranted for a suspicious lung finding this will be followed by the Lung Cancer Screening program in conjunction with the Thoracic Surgery Department at [facility]. - A copy of the office note and LDCT will be sent to the patient's PCP - as well as documentation on any associated further plans of care. - Incidental findings on LDCT are the PCP's responsibility. These findings are indicated with an S finding on the LDCT Assessment. A note discussing the findings will be sent to the PCP who is then responsible for further management. - All questions answered.? Coding Level of Care Code Lung Cancer Screening G0296 Diagnoses Nicotine dependence, cigarettes, uncomplicated F17.210 Personal history of nicotine dependence Z87.895
== END 2024-05-04 11:28 | disposition home or self-care (01) ==
PROVIDERS: PCP Nurse Practitioner Primary Care; Referring Provider Nurse Practitioner Primary Care; Visit Provider Physician Assistant Medical
DX: F17.210 Nicotine dependence, cigarettes, uncomplicated (principal); Z87.891 Personal history of nicotine dependence
CPT/HCPCS: G0296

== ENCOUNTER 2024-05-04 11:23 | Outpatient (REF) | payer MEDICAID, SELFPAY ==
--- NOTE | ~2024-05-04 | CT_ITS ---
EXAMINATION: CT LOW-DOSE SCREENING CHEST WITHOUT CONTRAST CLINICAL INFORMATION: Nicotine dependence COMPARISON: Lung cancer screening CT on 05/30/2024 This exam was performed on 05/04/2024 and is presented for review on 08/19/2024. In the interim, there were technical difficulties which resulted in loss of the images and us the exam was performed again on 05/30/2024. At this time, a portion of the original images were able to be restored and are being read with this exam, however any pertinent follow-up should also include consideration of the subsequent exam performed on 05/30/2024. TECHNIQUE: Multidetector volumetric CT imaging of the chest is performed on a Siemens SOMATOM Definition scanner without contrast using low dose technique. Additional 2D coronal and sagittal reformatted images and axial 3D maximum intensity projection (MIP) images are generated on the CT workstation. This CT examination was performed using dose optimization techniques as appropriate, variously including the following: *Automated exposure control *Adjustment of mA and/or kV according to patient size (this includes techniques or standardized protocols for targeted exams where dose is matched to indication/reason for exam; i.e. extremities or head) *Use of iterative reconstruction technique TOTAL EXAM DLP: 52 mGy-cm. CTDIvol: 1.43 mGy. FINDINGS: PULMONARY NODULES: Small bilateral micronodules all measuring less than 3-4 mm. LUNGS: Linear atelectasis at the right lung base. No focal lung nodule or mass. No effusion or pneumothorax. Central airways patent. MEDIASTINUM: No mediastinal, hilar or axillary adenopathy or free fluid collection. CORONARY ARTERY CALCIFICATION: Mild THYROID GLAND: Unremarkable to the extent seen. CARDIOVASCULAR STRUCTURES: Aortic and heart size normal. No pericardial effusion. CHEST WALL/AXILLA: Unremarkable. UPPER ABDOMEN: Included portions of the solid organs in the upper abdomen unremarkable on noncontrast imaging. OSSEOUS STRUCTURES: No suspicious focal findings. CT/CT lung screening IMPRESSION: Unremarkable examination. ASSESSMENT: 1. Lung-RADS Category 0: Incomplete. Reason: Incomplete images. 2. Lung-RADS Category S: Negative. There are no clinically significant or potentially clinically significant findings not related to the lungs requiring urgent additional evaluation. RECOMMENDATION: Please refer to the exam was subsequently performed on 05/30/2024 Electronically signed by: Jayashree Vaughn MD 08/19/2024 12:22 PM EDT RP
== END 2024-05-04 11:24 | disposition home or self-care (01) ==
LOC: HO.CT 11:23
PROVIDERS: PCP Nurse Practitioner Primary Care; Visit Provider Physician Assistant Medical
DX: Z12.2 Encounter for screening for malignant neoplasm of respiratory organs (principal); F17.210 Nicotine dependence, cigarettes, uncomplicated
CPT/HCPCS: 71271; G0296

== ENCOUNTER 2024-05-09 13:13 | Outpatient (AMB) | payer MEDICAID, SELFPAY ==
--- NOTE | 2024-05-09 13:25 | MHC.OFFVIS ---
Vital Signs 05/09/24 13:36 Height 5 ft 1 in Weight 153 lb 7.068 oz BMI 29.0 BP 128/56 L Blood Pressure Location Lt brachial Position Sitting Pulse 68 Pulse Source Pulse Oximeter Pulse Oximetry (%) 98 Oxygen Delivery Method Room Air Intake Visit Reasons: discuss prep Intake Note: Joelle presents in office today for a provider requested FUV. CC; Pt is in office today to discuss colo s/p prep instructions. Pt reports that she is not feeling well today. Pt is experiencing a headache and dizziness. Pt reports that this is an issue that is being managed by another department in the hospital. Pt reports that she had a stomach virus last week, however; she is feeling much better this week. Flying I Instructor Required: Yes Flying I Instructor Name: [id number] Allergies No Known Allergies Allergy (Verified 05/09/24 13:26) HPI HPI discuss prep: Details: LAST VISIT: Elevated LFTs GERD (gastroesophageal reflux disease) Dysphagia Postprandial abdominal bloating Postprandial epigastric pain Osteophyte of cervical spine Plan Referral to neuro as patient continues to have feeling like there is something stuck in her throat. As mentioned above modified barium swallow done and it showed ventral osteophyte arising from C4 C5 that could be causing dysphagia. Patient denies any odynophagia. Will start her on Nexium. Continue avoiding dietary triggers. Patient will take 1 Colace in the evening. Increase fluid intake and activity to promote better bowel motility recommendation made by speech therapist in forced with patient. Patient will follow-up in our office in 2 months to discuss going for upper endoscopy and colonoscopy. She will call our office if she will experience any GI concerning symptoms. Patient is agreeable to this plan and verbalizes understanding of instructions. She was given the opportunity to ask questions and all questions answered. ? Thank you for allowing me to participate in her care Orders Referrals Neuro Spine Referral R13.10 Medications New esomeprazole magnesium (Nexium) 40 mg PO DAILY 30 caps 5RF K21.9 Changed Changed From docusate sodium 100 mg PO BID PRN Constipation Changed To docusate sodium (Colace) 100 mg PO DAILY 30 caps 3RF Constipation Discontinued pantoprazole take one tablet half an hour before breakfast Discontinued Reason: Doctor's Order 40 mg PO DAILY 30 tabs 2RF K21.9 TODAY'S VISIT: Patient is here today for follow-up and to discuss going for colonoscopy and upper endoscopy. However patient currently has been seen by Neurosurgery and we will hold off on sending patient for endoscopy. And colonoscopy. Patient denies any melena, hematochezia, unintentional weight loss or ribbon like stools. Patient denies any dyspepsia, reports dysphagia without odynophagia. Patient does report headaches, symptoms of cold last week that went away currently patient states that she is having headaches and neck pain. Patient had MRI done and has a follow-up with Neurosurgery on the 11th of this month. Patient would like to postpone this for now until she is cleared. Patient denies any other GI concerning symptoms. Reports that Nexium and famotidine are working. Patient denies any acid reflux during the day or during the night time. Patient denies any nausea or vomiting. Moving her bowels well without any issues. 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 Mother Hx of colon cancer, stage I Hx of diabetes insipidus Social History Household Members: None Alcohol intake: former Patient Tobacco Use Status: Former Tobacco user Years Smoked: (onset 19yo, 1ppd x 42yrs, 40pyh - quit 2021) Review of Systems Const Denies weight gain and Denies weight loss ENT Reports no additional complaints, Reports dysphagia and Denies odynophagia Card Reports no additional complaints Resp Reports no additional complaints GI Denies abdominal pain, Denies belching, Denies melena, Denies bloating, Denies change in bowel habits, Reports dysphagia, Denies excessive flatus, Denies dyspepsia, Reports heartburn (Improved), Denies diarrhea, Denies loose stools, Denies nausea, Denies odynophagia and Denies vomiting Musc Reports no additional complaints Neuro Reports no additional complaints Psych Reports no additional complaints Endo Reports no additional complaints Physical Exam Vital Signs: Last Vital Signs Pulse 68 05/09/24 13:36 BP 128/56 L 05/09/24 13:36 Pulse Ox 98 05/09/24 13:36 Oxygen Delivery Method Room Air 05/09/24 13:36 BMI result Body Mass Index 29.0 Const General: healthy appearing, no acute distress and well developed Nutritional Appearance: obese Orientation/consciousness: patient oriented x3 Resp Effort & Inspection: normal respiratory effort, able to speak in complete sentences, no tracheal deviation and symmetric chest movement Auscultation: clear to auscultation bilaterally Cardio Rate: regular rate GI Inspection: Yes normal to inspection, No distended and Yes obesity Palpation (GI): Soft to palpation, not firm, nontender and No hepatosplenomegaly present Auscultation: normal bowel sounds General: Yes no CVA tenderness Back/Spine/Pelvis Back: no CVA tenderness Skin General skin exam: elasticity normal, turgor normal and dry skin Neuro General: patient oriented x3 Psych Appearance: grossly normal Mental Status: mental status grossly normal Assessment & Plan Assessment & Plan (1) Elevated LFTs: Code(s): R79.89 - Other specified abnormal findings of blood chemistry Category: Medical (2) GERD (gastroesophageal reflux disease): Code(s): K21.9 - Gastro-esophageal reflux disease without esophagitis Category: Medical Qualifiers: Esophagitis presence: esophagitis presence not specified Qualified Code(s): K21.9 - Gastro-esophageal reflux disease without esophagitis (3) Osteophyte of cervical spine: Code(s): M25.78 - Osteophyte, vertebrae Category: Medical (4) Dysphagia: Code(s): R13.10 - Dysphagia, unspecified Qualifiers: Dysphagia type: oropharyngeal phase Qualified Code(s): R13.12 - Dysphagia, oropharyngeal phase (5) Postprandial abdominal bloating: Code(s): R14.0 - Abdominal distension (gaseous) (6) Postprandial epigastric pain: Code(s): R10.13 - Epigastric pain Plan Continue current treatment with Nexium and famotidine. Patient reports that she is feeling better. Her symptoms of dysphagia improved, however she continues to have neck pain and trouble swallowing solid food. Hold off endoscopy and colonoscopy. Patient will return in 3 months, sooner on as needed basis. Follow-up appointment with neurosurgery on the of this month. MRI done and will be reviewed by the provider then. Decision will be made if patient will require surgery or not. Patient is agreeable to this plan and verbalizes understanding of instructions. She was given the opportunity to ask questions and all questions answered. Thank you for allowing me to participate in her care Medications: Refilled esomeprazole magnesium (Nexium) 40 mg PO DAILY 90 caps 2RF K21.9 - Gastro-esophageal reflux disease without esophagitis famotidine 40 mg PO BEDTIME 90 tabs 3RF K21.9 - Gastro-esophageal reflux disease without esophagitis Coding Level of Care Code Est Pt Level 3 (14691) Diagnoses Elevated LFTs R79.89 Gastroesophageal reflux disease, unspecified whether esophagitis present K21.9 Esophagitis presence: esophagitis presence not specified Osteophyte of cervical spine M25.78 Oropharyngeal dysphagia R13.12 Dysphagia type: oropharyngeal phase Postprandial abdominal bloating R14.0 Postprandial epigastric pain R10.13 Time Spent (min) 25 Comment 15 minutes spent with patient and additional 10 minutes spent reviewing her records
[2024-05-09 13:36] VITALS: BP 128/56; PULSE 68; O2SAT 98; BMI 29.0
== END 2024-05-09 14:20 | disposition home or self-care (01) ==
PROVIDERS: PCP Nurse Practitioner Primary Care; Visit Provider Nurse Practitioner Family
DX: R79.89 Other specified abnormal findings of blood chemistry (principal); K21.9 Gastro-esophageal reflux disease without esophagitis; M25.78 Osteophyte, vertebrae; R13.12 Dysphagia, oropharyngeal phase; R14.0 Abdominal distension (gaseous); R10.13 Epigastric pain
CPT/HCPCS: 99213

== ENCOUNTER → 2024-05-09 13:13 | Outpatient (BNVA) | payer MEDICAID, SELFPAY | PROVIDERS: PCP Nurse Practitioner Primary Care; Visit Provider Nurse Practitioner Family | DX: K21.9 Gastro-esophageal reflux disease without esophagitis (principal); R79.89 Other specified abnormal findings of blood chemistry; M25.78 Osteophyte, vertebrae; R13.12 Dysphagia, oropharyngeal phase; R14.0 Abdominal distension (gaseous); R10.13 Epigastric pain; Z79.899 Other long term (current) drug therapy | CPT/HCPCS: 99212 ==

== ENCOUNTER 2024-05-17 14:40 | Outpatient (AMB) | payer MEDICAID, SELFPAY ==
--- NOTE | 2024-05-17 15:00 | A.SPINEOV_ITS ---
Intake Visit Reasons: F/u CT and MRI Intake Note: Ms. Myers, 63 y/o female, is here today to follow up on her CT Scan and MRI. Software Requirements Engineer Required: No Allergies No Known Allergies Allergy (Verified 05/09/24 13:26) Assessment & Plan Assessment & Plan (1) Osteophyte of cervical spine: Code(s): M25.78 - Osteophyte, vertebrae Category: Medical Plan Mrs Myers is returning to review her cervical MRI and CT scan. The CT scan is very helpful and shows us that she has a large anterior [place] like osteophyte at C4-5 which is projecting upwards and anteriorly toward the esophagus. I am not sure if this is 100% the cause of what is going on with her swallowing, but I will discuss with Dr. Guy if he thinks it worth to resect the osteophyte since the symptoms are becoming troublesome for the patient. Usually this would be a similar approach as we would do for an anterior cervical fusion with a small incision on the front of the neck. I did briefly discuss this with them, but told him I would need to get a final answer from Dr. Guy and I will get back to them. Total amount of time spent in this visit was 20 minutes in discussion of symptoms, CT and MRI imaging results and subsequent plan of care Josh Guy MD,PhD [facility] Coding Level of Care Code Est Pt Level 3 (29805) Diagnoses Osteophyte of cervical spine M25.78
== END 2024-05-17 15:20 | disposition home or self-care (01) ==
PROVIDERS: PCP Nurse Practitioner Primary Care; Visit Provider Physician Assistant
DX: M25.78 Osteophyte, vertebrae (principal)
CPT/HCPCS: 99213

== ENCOUNTER → 2024-05-17 14:40 | Outpatient (BNVA) | payer MEDICAID, SELFPAY | PROVIDERS: PCP Nurse Practitioner Primary Care; Visit Provider Physician Assistant | DX: M25.78 Osteophyte, vertebrae (principal) | CPT/HCPCS: 99212 ==

== ENCOUNTER 2024-05-30 12:55 | Outpatient (REF) | payer MEDICAID, SELFPAY ==
--- NOTE | ~2024-05-30 | CT_ITS ---
EXAMINATION: CT LOW-DOSE SCREENING CHEST WITHOUT CONTRAST CLINICAL INFORMATION: Nicotine dependence. The patient has a 45 pack-year history of smoking, having quit 1 year ago. COMPARISON: CTA chest 01/01/2015 TECHNIQUE: Multidetector volumetric CT imaging of the chest is performed on a Siemens SOMATOM Perspective scanner without contrast using low dose technique. Additional 2D coronal and sagittal reformatted images and axial 3D maximum intensity projection (MIP) images are generated on the CT workstation. This CT examination was performed using dose optimization techniques as appropriate, variously including the following: *Automated exposure control *Adjustment of mA and/or kV according to patient size (this includes techniques or standardized protocols for targeted exams where dose is matched to indication/reason for exam; i.e. extremities or head) *Use of iterative reconstruction technique TOTAL EXAM DLP: 78 mGy-cm. CTDIvol: 2.34 mGy. FINDINGS: PULMONARY NODULES: Some small unchanged pulmonary nodules are seen including a 3 mm right apical nodule (5:64 compare prior 6:85), a 3 mm left apical nodule (5:86 compare prior 6:103), and a 4 mm posterior nodule in the left upper lobe (5:113 compare prior 01/01/2015, 6:149). There is a new opacity that measures 6 mm in the left lower lobe but on coronal imaging this is flat and consistent with an area of atelectasis or scarring (5:233 plus ren image). No suspicious or concerning nodule is seen. LUNGS: Lungs bilaterally symmetrically expanded. Mild emphysematous changes are present. Some minimal bronchial thickening is noted without bronchiectasis. No effusion or pneumothorax. Central airways patent. MEDIASTINUM: No mediastinal, hilar or axillary adenopathy or free fluid collection. CORONARY ARTERY CALCIFICATION: Minimal. A stent is present in the LAD. THYROID GLAND: Unremarkable to the extent seen. CARDIOVASCULAR STRUCTURES: Aortic and heart size normal. No pericardial effusion. CHEST WALL/AXILLA: Unremarkable. UPPER ABDOMEN: Liver attenuation is decreased consistent with steatosis. Included portions of the solid organs in the upper abdomen otherwise unremarkable on noncontrast imaging. OSSEOUS STRUCTURES: No suspicious focal findings. CT/CT lung screening IMPRESSION: 1. No evidence of pulmonary malignancy. 2. Mild emphysema. 3. Hepatic steatosis. 4. Other incidental findings as described above. 5. Lung-RADS Category S: Negative. There are no clinically significant or potentially clinically significant findings not related to the lungs requiring urgent additional evaluation. ASSESSMENT: Lung-RADS Category 2: Benign appearance or behavior of nodules. N/A RECOMMENDATION: Continued routine annual low-dose CT lung screening in 1 year is recommended. An order for CT CHEST LOW DOSE CANCER SCREENING ([id number]) can be placed.
== END 2024-05-30 12:56 | disposition home or self-care (01) ==
LOC: HO.CT 12:55
PROVIDERS: Visit Provider Physician Assistant Medical
DX: Z12.2 Encounter for screening for malignant neoplasm of respiratory organs (principal); F17.210 Nicotine dependence, cigarettes, uncomplicated
CPT/HCPCS: 71271

== ENCOUNTER 2024-06-06 12:49 | Outpatient (REF) | payer MEDICAID, SELFPAY | END 2024-06-06 12:50 | disposition home or self-care (01) | LOC: HO.MAMMO 12:49 | PROVIDERS: PCP Nurse Practitioner Primary Care; Visit Provider Nurse Practitioner Primary Care | DX: Z12.31 Encounter for screening mammogram for malignant neoplasm of breast (principal) | CPT/HCPCS: 77063; 77067 ==

== ENCOUNTER → 2024-06-06 13:00 | Outpatient (BNV) | payer MEDICAID, SELFPAY | PROVIDERS: PCP Nurse Practitioner Primary Care; Visit Provider Radiology Diagnostic Radiology | DX: Z12.31 Encounter for screening mammogram for malignant neoplasm of breast (principal) | CPT/HCPCS: 77063; 77067 ==

== ENCOUNTER 2024-06-19 09:02 | Emergency (ER) | payer MEDICAID, SELFPAY ==
--- NOTE | ~2024-06-19 | US_ITS ---
EXAMINATION: US ABDOMEN LIMITED CLINICAL INFORMATION: Epigastric and right upper quadrant pain. COMPARISON: 01/12/2024 TECHNIQUE: Real-time imaging of the right upper quadrant abdominal viscera. FINDINGS: PANCREAS: Normal. Pancreatic duct measures approximately 2 mm. LIVER: Liver is of increased echogenicity and enlarged at 17.1 cm. The liver contour is normal. Parenchymal echogenicity is normal. No focal hepatic lesion. There is no intrahepatic biliary duct dilatation seen. GALLBLADDER: Normal. The gallbladder is physiologically distended without evidence of stones, sludge, polyps, wall thickening or pericholecystic fluid. Diffuse abdominal pain elicited during study. COMMON BILE DUCT: Normal in caliber measuring 0.4 cm in diameter. RIGHT KIDNEY: Normal. No hydronephrosis. No renal calculi or focal parenchymal lesions. The kidney measures 9.3 cm in maximum dimension. FREE FLUID: None. US/US abdomen limited IMPRESSION: Enlarged fatty liver.
[2024-06-19 09:16] VITALS: BP 142/81; PULSE 76; RESP 19; TEMP 36.6; O2SAT 98; BMI 27.9
[2024-06-19 10:49] LABS: MANUAL DIFF FLAG NO
[2024-06-19 10:52] LABS: Appearance Urine Clear; Basophils Percent Auto 0.6 % (0-2); Color Urine Yellow; Eosinophils Absolute Auto 0.1 X10*3/uL (0.0-0.4); Eosinophils Percent Auto 0.9 % (0-4); Glucose Urine UA 500 mg/dL (Negative); Hematocrit 37.9 % (37.0-47.0); Imm Gran Abs Auto 0.02 X10*3/uL (0.00-0.03); Imm Gran Pct Auto 0.3 % (0.0-0.4); Leukocyte Esterase Urine Negative (Negative); Lymphocytes Percent Auto 29.7 % (20-40); Mean Corpuscular HGB Conc 34.3 g/dl (31.0-35.0); Mean Corpuscular Hemoglobin 29.9 pg (27.0-33.0); Mean Corpuscular Volume 87.1 fL (80.0-98.0); Mean Platelet Volume 11.1 fL (9.4-12.3); Monocytes Absolute Auto 0.6 X10*3/uL (0.1-1.2); Monocytes Percent Auto 8.6 % (2-11); Neutrophils Percent Auto 59.9 % (45-73); Nitrite Urine Negative (Negative); PH 5.5 (5.0-9.0); Platelet Count 301 X10*3/uL (160-400); Red Blood Count 4.35 X10*6/uL (4.20-5.50); Red Cell Distribution Width 12.4 % (11.0-16.0); Urine Blood Negative (Negative); Urine Ketones Negative (Negative); Urine Protein Negative (Neg-Trace); White Blood Count 6.6 X10*3/uL (4.8-10.8)
[2024-06-19 10:53] LABS: UPreg QC Valid YES; Urine Pregnancy NEGATIVE (NEGATIVE)
[2024-06-19 11:05] LABS: Alanine Aminotransferase 23 U/L (0-31); Albumin Level 4.7 g/dL (3.5-5.0); Alkaline Phosphatase 86 U/L (39-117); Anion Gap 10 (12-20); Aspartate Amino Transferase 19 U/L (5-31); Bilirubin Direct 0.1 mg/dL (0.0-0.5); Bilirubin Total 0.4 mg/dL (0.0-1.0); Blood Urea Nitrogen 15 mg/dL (9-16); Calcium 10.5 mg/dL (8.4-10.2); Carbon Dioxide 28 mmol/L (22-29); Chloride 107 mmol/L (96-108); Creatinine Clr Calc Pharmacy 38.7; Estimated Glomerular Filt Rate 41; Glucose Random 220 mg/dL (60-115); Lipase 36 U/L (8-78); Potassium 4.7 mmol/L (3.3-5.1); Sodium 140 mmol/L (135-145); Total Protein 7.5 g/dL (6.5-8.0)
--- NOTE | 2024-06-19 11:34 | ED.ABDPAIN ---
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 Meyers HPI narrative: 63-year-old female speaking came in for evaluation of abdominal pain. Pain is localized to the epigastric area with no radiation, pain is constant for a 1 month, worsening with any food or drink, pain is associated sometimes with nausea but no vomiting, no fever, no chills. Last bowel movement was this morning and was normal in color and consistency without blood, no dysuria, no frequency urination no hematuria, never had intra-abdominal surgery in the past. Patient declined alcohol use, no smoking, no drug abuse. Related Data Home Medications ?Medication ?Instructions ?Recorded ?Confirmed albuterol sulfate 90 mcg/actuation 2 puff inhalation Q4-6H PRN 08/26/20 12/08/23 aerosol inhaler (ProAir HFA) Shortness Of Breath Or Wheezing aspirin 81 mg tablet 81 mg PO DAILY 08/26/20 12/08/23 blood-glucose meter (FreeStyle 08/26/20 12/08/23 Lite Meter kit) budesonide-formoterol HFA 160 2 puff inhalation BID 08/26/20 12/08/23 mcg-4.5 mcg/actuation aerosol inhaler eszopiclone 2 mg tablet 2 mg PO BEDTIME 08/26/20 12/08/23 fenofibrate micronized 134 mg 134 mg PO DAILY 08/26/20 12/08/23 capsule furosemide 20 mg tablet 20 mg PO DAILY 08/26/20 12/08/23 gabapentin 600 mg tablet 600 mg PO TID 08/26/20 12/08/23 metoprolol succinate 25 mg 25 mg PO BID 08/26/20 12/08/23 tablet,extended release 24 hr nitroglycerin 0.3 mg sublingual 0.3 mg sublingual DAILY PRN Chest 08/26/20 12/08/23 tablet (Nitrostat) Pain sertraline 100 mg tablet (Zoloft) 100 mg PO DAILY 08/26/20 12/08/23 apixaban 2.5 mg tablet (Eliquis) 2.5 mg PO 01/13/22 12/08/23 acarbose 100 mg tablet 100 mg PO TID 06/08/23 12/08/23 fluconazole 150 mg tablet 150 mg PO ONCE 12/08/23 12/08/23 cholecalciferol (vitamin D3) 50 50 mcg PO QAM 03/09/24 mcg (2,000 unit) tablet atorvastatin 40 mg tablet 40 mg PO BEDTIME 05/09/24 bupropion HCl 100 mg tablet,12 hr 100 mg PO QAM 05/09/24 sustained-release cetirizine 10 mg tablet 10 mg PO QAM 05/09/24 dulaglutide 3 mg/0.5 mL mg subcut QWEEK 05/09/24 subcutaneous pen injector (Trulicity) lorazepam 0.5 mg tablet 0.5 mg PO BID PRN 05/09/24 sennosides 8.6 mg-docusate sodium 2 tab PO DAILY PRN constipation 05/09/24 50 mg tablet (Stimulant Laxative Plus) tiotropium bromide 18 mcg capsule 1 cap inhalation DAILY 05/09/24 with inhalation device (Spiriva with HandiHaler) trazodone 50 mg tablet 50 mg PO BEDTIME 05/09/24 zolpidem 10 mg tablet 10 mg PO BEDTIME PRN 05/09/24 Previous Rx's ?Medication ?Instructions ?Recorded alcohol swabs (Alcohol Pads) 1 pad topical .4 times a day 10/07/20 days #200 ea pen needle, diabetic 32 gauge x #150 ea 08/20/21 (BD Ultra-Fine [place]ienna Pen Needle) blood-glucose meter (FreeStyle #1 ea 08/21/21 [place] Lite kit) FreeStyle Lancets 28 gauge #300 ea 10/21/21 (lancets) metformin 500 mg tablet 500 mg PO BID 90 days #180 tabs 04/07/22 blood sugar diagnostic (FreeStyle #300 ea 06/16/22 Lite Strips) insulin glargine 100 unit/mL (3 46 unit (0.46 mL) subcut QPM #15 mL 07/07/22 mL) subcutaneous pen (Lantus Solostar U-100 Insulin) insulin aspart U-100 100 unit/mL See Rx Instructions subcut TID #15 07/13/22 (3 mL) subcutaneous pen (Novolog mL FlexPen U-100 Insulin aspart) pioglitazone 15 mg tablet 15 mg PO DAILY #30 tabs 10/26/22 docusate sodium 100 mg capsule 100 mg PO DAILY Constipation #30 03/09/24 (Colace) caps esomeprazole magnesium 40 mg 40 mg PO DAILY #90 caps 05/09/24 capsule,delayed release (Nexium) famotidine 40 mg tablet 40 mg PO BEDTIME #90 tabs 05/09/24 omeprazole 40 mg capsule,delayed 40 mg PO DAILY #30 caps 06/19/24 release Allergies Allergy/AdvReac Type Severity Reaction Status Date / Time No Known Allergies Allergy Verified 06/19/24 09:17 Review of Systems Review of Systems All other systems are reviewed and are negative Constitutional: Reports as per HPI and Reports no additional constitutional complaints Eyes: Reports as per HPI and Reports no additional eye complaints Reports system reviewed and no additional complaints, except as documented Cardiovascular: Reports as per HPI and Reports no additional cardiovascular complaints Respiratory: Reports as per HPI and Reports no additional respiratory complaints Gastrointestinal: Reports as per HPI and Reports no additional gastrointestinal complaints Genitourinary: Reports no additional female genitourinary complaints Musculoskeletal: Reports no additional musculoskeletal complaints Skin/Breast: Reports system reviewed and no additional complaints, except as docu Psychiatric: Reports no additional psychiatric complaints Endocrine: Reports no additional endocrine complaints Hematologic/Lymphatic: Reports no additional hematologic/lymphatic complaints Allergic/Immunologic: Reports no additional allergic/immunologic complaints Reports system reviewed and no additional complaints, except as documented and Reports Abnormal speech present [facility] Past Medical History Medical History CAD (coronary artery disease) Stented coronary artery (~2012) Personal history of PE (pulmonary embolism) (~2013) Current use of anticoagulant therapy (~2013) Hypertension Dyslipidemia Diabetes type 2, uncontrolled (~2011) Diabetic 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 Mother Hx of colon cancer, stage I Hx of diabetes insipidus Social History Social History Household Members: None Alcohol intake: former Patient Tobacco Use Status: Former Tobacco user Years Smoked: (onset 19yo, 1ppd x 42yrs, 40pyh - quit 2021) Advance Directives: No Advance Directives Information Provided: Yes Physical Exam ED Vital Signs: Vital Signs - 24 hr 06/19/24 09:16 06/19/24 11:35 06/19/24 14:14 Temperature 98 F 96.7 F L 98.1 F Pulse Rate 76 67 60 Respiratory Rate 19 16 18 Blood Pressure 142/81 H 133/78 159/77 H Pulse Oximetry 98 100 100 Oxygen Delivery Method Room Air Room Air BMI result Body Mass Index 27.9 Vital signs have been reviewed and appear to be correct. Blood pressure elevated. Heart rate normal. Respiratory rate normal. Temperature normal. Oxygen saturation normal. Appearance: Alert. Oriented X3. No acute distress. Head: Normal external exam. Normocephalic. Atraumatic. No Hall signs noted. No raccoon eyes noted Eyes: PERRLA. EOMI. Conjunctiva and sclera normal. Eyelids normal. ENT: TM's Normal. Pharynx normal. Uvula midline. Moist mucous membranes. No trismus noted. No drooling noted. No muffled voice noted. Neck: Normal inspection. Neck supple. FROM. No adenopathy. Thyroid Normal. No meningeal signs. No neck mass noted. CVS: Normal heart rate and rhythm. Heart sound normal. No murmurs noted. Pulses normal throughout. Respiratory: No respiratory distress. Painless inspiration. Breath sounds normal. No wheezes/rales/rhonchi noted. Chest nontender. No accessory muscle usage noted or decreased air movement noted. Abdomen: Soft, epigastric tenderness, no guarding, no rebound tenderness. Bowel sounds normal in all 4 quadrants. No distention noted. No organomegaly noted. No visible injury noted. Back: No CVA tenderness. Full range of motion noted. Skin: Skin warm and dry. Normal skin color. Normal skin turgor. No rashes/lesions/lacerations noted. Extremities: No lower extremity edema. Extremities exhibit normal range of motion. Extremities nontender. Neuro: Oriented X 3. Cranial nerve exam: II-XII are grossly intact No motor deficit. No sensory deficit. Reflexes normal. Course Course Course Narrative: This is a Rapid Medical Examination (RME) performed by Lou Lindsey PA-C in triage. Full HPI, ROS, assessment and treatment plan per primary provider in the Main ED. 63-year-old female with history of CAD status post stent, DM 2, HTN, HLD who presents to the ER for evaluation of 3-4 weeks of central and right upper quadrant abdominal pain that is worse with eating. It is associated with nausea. Right upper quadrant and epigastric tenderness on examination in triage. Plan: Right upper quadrant ultrasound. Reevaluation(s) Reevaluation #1: Epigastric pain, negative ultrasound for gallbladder disease patient feels better with Prilosec and Maalox will start the patient on PPI and follow-up with GI Time: 16:00 Medical Decision Making Differential Diagnosis Differential Diagnoses: The differential diagnosis associated with the presentation includes (Gallbladder disease, gastritis, ACS, pancreatitis, electrolyte derangement, severe anemia.) Admission/Observation Consideration of admission/observation: Escalation of care including admission/observation considered Lab Data MDM Lab Attestation statement: I reviewed the patient's lab results. 06/19/24 10:44 06/19/24 10:44 Labs: Lab Results 06/19/24 Range/Units 10:44 WBC 6.6 (4.8-10.8) X10*3/uL RBC 4.35 (4.20-5.50) X10*6/uL Hgb 13.0 (12.0-16.0) g/dl Hct 37.9 (37.0-47.0) % MCV 87.1 (80.0-98.0) fL MCH 29.9 (27.0-33.0) pg MCHC 34.3 (31.0-35.0) g/dl RDW 12.4 (11.0-16.0) % Plt Count 301 (160-400) X10*3/uL MPV 11.1 (9.4-12.3) fL Immature Gran % (Auto) 0.3 (0.0-0.4) % Neut % (Auto) 59.9 (45-73) % Lymph % (Auto) 29.7 (20-40) % [place] % (Auto) 8.6 (2-11) % Eos % (Auto) 0.9 (0-4) % Baso % (Auto) 0.6 (0-2) % Lymph # (Auto) 2.0 (1.2-4.9) X10*3/uL [place] # (Auto) 0.6 (0.1-1.2) X10*3/uL Eos # (Auto) 0.1 (0.0-0.4) X10*3/uL Baso # (Auto) 0.0 (0.0-0.2) X10*3/uL Abs Immat Gran (auto) 0.02 (0.00-0.03) X10*3/uL Absolute Neuts (auto) 4.0 (2.0-8.3) x10*3/uL Absolute Nucleated RBC 0.000 (0.0-0.012) X10*3/uL Nucleated RBC % (auto) 0.0 (0.0-0.2) /100WBC Sodium 140 (135-145) mmol/L Potassium 4.7 D (3.3-5.1) mmol/L Chloride 107 (96-108) mmol/L Carbon Dioxide 28 (22-29) mmol/L Anion Gap 10 L (12-20) BUN 15 (9-16) mg/dL Creatinine 1.32 (0.5-1.4) mg/dL Estim Creat Clear Calc 38.7 Estimated GFR 41 Random Glucose 220 H (60-115) mg/dL Calcium 10.5 H (8.4-10.2) mg/dL Total Bilirubin 0.4 (0.0-1.0) mg/dL Direct Bilirubin 0.1 (0.0-0.5) mg/dL AST 19 (5-31) U/L ALT 23 (0-31) U/L Alkaline Phosphatase 86 (39-117) U/L Total Protein 7.5 (6.5-8.0) g/dL Albumin 4.7 (3.5-5.0) g/dL Lipase 36 (8-78) U/L Urine Color Yellow Urine Appearance Clear Urine pH 5.5 (5.0-9.0) Ur Specific Agency 1.010 (1.005-1.025) Urine Protein Negative (Neg-Trace) mg/dL Urine Glucose (UA) 500 H (Negative) mg/dL Urine Ketones Negative (Negative) mg/dL Urine Blood Negative (Negative) Urine Nitrite Negative (Negative) Ur Leukocyte Esterase Negative (Negative) Urine Test NEGATIVE (NEGATIVE) Independent Interpretation I performed an independent interpretation of an: EKG (Normal sinus rhythm at 61 beats per minutes, normal axis deviation, normal intervals, diffuse T-wave inversion in the lateral leads with no significant change from previous EKG.) and Ultrasound (Abdomen ultrasound:Enlarged fatty liver.) Radiology Impression Discussion of test interpretation with radiology: I have reviewed the radiologist's reading. Medications Administered Discontinued Medications Generic Name Dose Route Start Last Admin Trade Name Freq PRN Reason Stop Dose Admin Al Hydroxide/Mg Hydroxide 30 ml 06/19/24 14:35 06/19/24 14:55 Magnesium Hydrox/Alum Hydrox 30 Ml Oral.Susp PO 06/19/24 14:36 30 ml ONCE ONE Administration Omeprazole 40 mg 06/19/24 14:54 06/19/24 15:26 Omeprazole/Na Bicarb Oral Susp 20 Mg/10 Ml Ud Cup PO 06/19/24 14:55 40 mg ONCE ONE Administration Discharge Plan Discharge Clinical Impression: Acute gastritis Patient Disposition: Home, Self-Care Instructions: Gastritis (ED) Prescriptions: New omeprazole 40 mg capsule,delayed release(DR/EC) 40 mg PO DAILY Qty: 30 0RF No Action alcohol swabs [Alcohol Pads] Pads, Medicated 1 pad topical .4 times a day 30 Days Qty: 200 6RF (DME) blood-glucose meter [FreeStyle [place] Lite] Kit See Rx Instructions .ROUTE .MEDSUPPLY Qty: 1 0RF Rx Instructions: To test bg 3x/day (DME) lancets [FreeStyle Lancets] 28 gauge misc MISCELLANEOUS Qty: 300 11RF Rx Instructions: 3 times a day metformin 500 mg tablet 500 mg PO BID 90 Days Qty: 180 2RF (DME) FreeStyle Lite Strips Strip See Rx Instructions .ROUTE .MEDSUPPLY Qty: 300 2RF Rx Instructions: 4 times a day Lantus Solostar U-100 Insulin 100 unit/mL (3 mL) insulin pen 46 unit subcut QPM Qty: 15 5RF insulin aspart U-100 [Novolog FlexPen U-100 Insulin] 100 unit/mL (3 mL) insulin pen See Rx Instructions subcut TID Qty: 15 5RF Rx Instructions: 16units with largest meal of the day and 12 units for 2 other meals. subcutaneously 3 times a day; subcutaneously 3 times a day; pioglitazone 15 mg tablet 15 mg PO DAILY Qty: 30 0RF gabapentin 600 mg Tablet 600 mg PO TID sertraline [Zoloft] 100 mg Tablet 100 mg PO DAILY Rx Instructions: take 2 tablets bid fenofibrate micronized 134 mg Capsule 134 mg PO DAILY aspirin 81 mg Tablet 81 mg PO DAILY metoprolol succinate 25 mg Tablet Extended Release 24 Hr 25 mg PO BID nitroglycerin [Nitrostat] 0.3 mg Tablet, Sublingual 0.3 mg SUBLINGUAL DAILY PRN (Reason: Chest Pain) furosemide 20 mg Tablet 20 mg PO DAILY albuterol sulfate [ProAir HFA] 90 mcg/actuation Hfa Aerosol Inhaler 2 puff INHALATION Q4-6H PRN (Reason: Shortness Of Breath Or Wheezing) eszopiclone 2 mg Tablet 2 mg PO BEDTIME budesonide-formoterol 160-4.5 mcg/actuation Hfa Aerosol Inhaler 2 puff INHALATION BID (DME) blood-glucose meter [FreeStyle Lite Meter] Kit MISCELLANEOUS Rx Instructions: use as directed TID fluconazole 150 mg tablet 150 mg PO ONCE (DME) pen needle, diabetic [BD Ultra-Fine [place] Pen Needle] 32 gauge x 5/32 needle See Rx Instructions .ROUTE .MEDSUPPLY Qty: 150 11RF Rx Instructions: four times a day Eliquis 2.5 mg tablet 2.5 mg PO cholecalciferol (vitamin D3) 50 mcg (2,000 unit) tablet 50 mcg PO QAM docusate sodium [Colace] 100 mg capsule 100 mg PO DAILY Qty: 30 3RF acarbose 100 mg tablet 100 mg PO TID bupropion HCl 100 mg tablet sustained-release 12 hr 100 mg PO QAM zolpidem 10 mg tablet 10 mg PO BEDTIME PRN lorazepam 0.5 mg tablet 0.5 mg PO BID PRN tiotropium bromide [Spiriva with HandiHaler] 18 mcg capsule, w/inhalation device 1 cap inhalation DAILY cetirizine 10 mg tablet 10 mg PO QAM atorvastatin 40 mg tablet 40 mg PO BEDTIME Trulicity 3 mg/0.5 mL pen injector subcut QWEEK sennosides-docusate sodium [Stimulant Laxative Plus] 8.6-50 mg tablet 2 tab PO DAILY PRN (Reason: constipation) trazodone 50 mg tablet 50 mg PO BEDTIME esomeprazole magnesium [Nexium] 40 mg capsule,delayed release(DR/EC) 40 mg PO DAILY Qty: 90 2RF famotidine 40 mg tablet 40 mg PO BEDTIME Qty: 90 3RF Referrals: Wilfrid Jennings MD [Physician] - Print Language: Welsh
[2024-06-19 11:35] VITALS: BP 133/78; PULSE 67; RESP 16; TEMP 35.9; O2SAT 100
[2024-06-19 14:14] VITALS: BP 159/77; PULSE 60; RESP 18; TEMP 36.7; O2SAT 100
[2024-06-19] MEDS: Magnesium Hydrox/Alum Hydrox 30 ML ORAL.SUSP PO (14:55)
--- NOTE | 2024-06-19 14:56 | ECG_ITS ---
Test Reason : Abdominal Pain Blood Pressure : / mmHG Vent. Rate : 061 BPM Atrial Rate : 061 BPM P-R Int : 136 ms QRS Dur : 088 ms QT Int : 356 ms P-R-T Axes : 048 021 073 degrees QTc Int : 358 ms Artifact in tracing Normal sinus rhythm ST & T wave abnormality, consider anterior ischemia Abnormal ECG When compared with ECG of 28-DEC-2023 08:47, QT has shortened Referred By: Dong Meyers Electronically Signed By:NACHO DOE
[2024-06-19] MEDS: Omeprazole/Na Bicarb Oral Susp 20 MG/10 ML UD Cup 40 MG PO (15:26)
[2024-06-19 16:09] VITALS: BP 151/79; PULSE 64; RESP 16; TEMP 36.6; O2SAT 100
[2024-06-19 16:10] LABS: Troponin-I High Sensitivity < 2.7 ng/L (<3.5-17.0)
== END 2024-06-19 18:49 | disposition home or self-care (01) ==
PROVIDERS: Emergency Provider Emergency Medicine
DX: K29.00 Acute gastritis without bleeding (principal); R10.11 Right upper quadrant pain; R10.13 Epigastric pain; E11.9 Type 2 diabetes mellitus without complications; I10 Essential (primary) hypertension; E78.5 Hyperlipidemia, unspecified; Z86.711 Personal history of pulmonary embolism; Z79.4 Long term (current) use of insulin; Z79.84 Long term (current) use of oral hypoglycemic drugs; Z79.82 Long term (current) use of aspirin; Z79.899 Other long term (current) drug therapy; Z79.01 Long term (current) use of anticoagulants
CPT/HCPCS: 36415; 76705; 80048; 80076; 81003; 81025; 83690; 84484; 85025; 93005; 99284

== ENCOUNTER → 2024-06-19 14:56 | Outpatient (BNV) | payer MEDICAID, SELFPAY | PROVIDERS: Emergency Provider Emergency Medicine; Visit Provider Internal Medicine | DX: R94.31 Abnormal electrocardiogram [ECG] [EKG] (principal) | CPT/HCPCS: 93010 ==

== ENCOUNTER → 2024-07-03 14:00 | Outpatient (RCR) | payer MEDICAID, SELFPAY ==
[2020-08-26 14:21] VITALS: BP 111/70; PULSE 105; RESP 18; TEMP 36.6; O2SAT 98
[2020-08-26 14:22] VITALS: BMI 29.0
--- NOTE | 2020-08-26 14:37 | PM.HEMONCPN ---
Medical Summary - Medical Summary Chief complaint: Follow-up Medical Summary: Diagnosis: Bilateral pulmonary emboli 2014 Presented with SOB and pleuritic chest pain in jun 2014, [facility] June 09, 2014 where an EKG revealed no acute process; d-dimer was elevated at 659 ng/mL. She underwent CT angiogram of the chest which revealed pulmonary emboli, partial filling defects in the left lower and right lower lobe pulmonary artery extending into the lower lobe segments. Bilateral lower extremity ultrasound performed June 10, 2014 showed no evidence of DVT. The patient did have bilateral leg swelling, right worse than the left, about a month or two prior to her presentation. No history of immobilization, recent surgery, trauma to lower extremity. She is a chronic smoker. She has not been on hormone replacement and was briefly on control pills in her younger days. She underwent a stent placement for coronary artery disease in April 2013 at [facility]. The patient was started on anticoagulation with Lovenox followed by Coumadin and is followed at the Coumadin clinic. Patient seen in hematology consultation in July 2014. Thrombophilia workup revealed negative lupus anticoagulant test, normal protein C activity of 80%, antithrombin III level normal at 105, factor V Leiden mutation negative, prothrombin gene mutation and protein S activity slightly low (but the patient on Coumadin). Medical and Surgical History 1. Coronary artery disease, status post stent placement in April 2013. 2. Type 2 diabetes mellitus. 3. Hypertension. 4. Dyslipidemia. 5. Asthma. 6. GERD. 7. Anxiety/depression. 8. Chronic fibromyalgia. Family History Denies any malignancy, and both her parents are alive. Mother is in her 70s, suffers from hypertension, diabetes, hypercholesterolemia and TIA. Father is 86. She is one of 9 siblings. All of her siblings are alive and well. Social History She has at least a 35 pack-year smoking history. Denies alcohol. Interval History Interval history: Patient is here in follow-up. She states that she has been doing quite well in the last year and reports no new medications or medical issues. She however states that today after walking from her car to the office for her visit she felt some palpitation but no chest pain. She is feeling better now. She denies any cough or shortness of breath. She has been on Coumadin, she has INR checks at home. She denies any bruising or bleeding. No abdominal discomfort, hematochezia or melena. Home Medications and Allergies Home Medications Medication Instructions Recorded Confirmed Type acarbose 50 mg PO TID 08/26/20 08/26/20 History albuterol sulfate [ProAir HFA] 2 puff INHALATION Q4-6H PRN 08/26/20 08/26/20 History aspirin 81 mg PO DAILY 08/26/20 08/26/20 History atorvastatin [Lipitor] 80 mg PO DAILY 08/26/20 08/26/20 History blood-glucose meter [FreeStyle 08/26/20 08/26/20 History Lite Meter] budesonide-formoterol 2 puff INHALATION BID 08/26/20 08/26/20 History clonazepam 1 mg PO BEDTIME 08/26/20 08/26/20 History docusate sodium [Colace] 100 mg PO BID PRN 08/26/20 08/26/20 History dulaglutide [Trulicity] 1.5 mg SUBCUT QWEEK 08/26/20 08/26/20 History eszopiclone 2 mg PO BEDTIME 08/26/20 08/26/20 History fenofibrate micronized 134 mg PO DAILY 08/26/20 08/26/20 History fluconazole 150 mg PO ONCE 08/26/20 08/26/20 History furosemide 20 mg PO DAILY 08/26/20 08/26/20 History gabapentin 600 mg PO TID 08/26/20 08/26/20 History insulin glargine [Lantus U-100 36 unit SUBCUT QPM 08/26/20 08/26/20 History Insulin] lancets [FreeStyle Lancets] 08/26/20 08/26/20 History metformin 500 mg PO BID 08/26/20 08/26/20 History metoprolol succinate 25 mg PO BID 08/26/20 08/26/20 History nitroglycerin [Nitrostat] 0.3 mg SUBLINGUAL DAILY PRN 08/26/20 08/26/20 History omeprazole 20 mg PO BID 08/26/20 08/26/20 History omeprazole [Prilosec] 20 mg PO BID 08/26/20 08/26/20 History sennosides-docusate sodium 1 tab-cap PO BEDTIME PRN 08/26/20 08/26/20 History sertraline [Zoloft] 100 mg PO DAILY 08/26/20 08/26/20 History tiotropium bromide 2 puff INHALATION DAILY 08/26/20 08/26/20 History tramadol 50 mg PO Q8H PRN 08/26/20 08/26/20 History varenicline [Chantix] 0.5 mg PO DAILY 08/26/20 08/26/20 History Allergies Allergy/AdvReac Type Severity Reaction Status Date / Time No Known Allergies Allergy Unverified 07/24/20 15:21 Pt states no food/medication Allergy Unknown NONE Uncoded 08/09/20 15:09 a Exam Vital signs: Vital Signs Temp 97.8 F 08/26/20 14:21 Pulse 105 H 08/26/20 14:21 Resp 18 08/26/20 14:21 BP 111/70 08/26/20 14:21 Pulse Ox 98 08/26/20 14:21 Intake & Output 08/25/20 08/26/20 08/26/20 18:59 06:59 18:59 Other: Weight 69.6 kg Weight 69.6 kg Body Mass Index 29.0 - Constitutional Present: no acute distress Comments: Somewhat anxious appearing today. - Routine HEENT Exam Eye: Present: EOMI - Routine Neck Exam Absent: lymphadenopathy - Routine Respiratory Exam Present: CTAB - Routine Cardiovascular Exam Cardiovascular: Present: S1, S2 - Routine Abdominal Exam Present: normal bowel sounds, soft Progress Note: A/P (1) Personal history of PE (pulmonary embolism) Status: Chronic Assessment and plan: This is a 60-year-old female with bilateral pulmonary emboli in both lower lobes of right and left lung diagnosed in June 2014. No deep vein thrombus found in either lower extremity. No triggering or provoking factors other than obesity, smoking history. There is no family history of thrombosis. She remains on Coumadin, per pt preference. Her D-dimer levels have been less than 200. She has been advised to call if she develops any signs of bruising or bleeding. She can now follow up with her PCP. - Time Spent With Patient Total time spent is greater than 50% in coordination of care (as documented) at patient's floor/unit and/or counseling patient: 15 - 24 minutes
--- NOTE | 2020-08-26 15:09 | MHC.HEMONC ---
pt seen by Dr Waggoner. No further followup needed here. Pt to follow up with PCP.
== END | disposition home or self-care (01) ==
LOC: HO.ONC 08-26 14:07
PROVIDERS: PCP Nurse Practitioner Family; Visit Provider Internal Medicine
DX: Z86.711 Personal history of pulmonary embolism (principal); Z79.01 Long term (current) use of anticoagulants
CPT/HCPCS: 99213

== ENCOUNTER 2024-07-04 15:15 | Outpatient (AMB) | payer MEDICAID, SELFPAY ==
--- NOTE | 2024-07-04 15:19 | A.OFFVIS_ITS ---
Vital Signs 07/04/24 15:21 Height 5 ft 1 in Weight 146 lb 13.246 oz BMI 27.7 BP 134/79 Blood Pressure Location Lt brachial Position Sitting Pulse 72 Intake Visit Reasons: Est. w/ Linh, having new sx/concerns. OK per February Intake Note: Joelle presents to in office follow up s/p ER visit. CC: Patient c/o upset stomach, abdominal pain, and nausea. She was seen in the ER on 06/19/24 with gastritis. She reports that she believes the symptoms are caused by Ozempic. Leak Hunter Required: No Accompanied by: Self / Same As Patient Allergies No Known Allergies Allergy (Verified 07/04/24 15:41) HPI HPI Est. w/ Linh, having new sx/concerns. OK per February: Details: 64-year-old female usually seen by Linh perez who is currently unavailable and is on my schedule for emergency evaluation. Linh's last note is as follows: Referral to neuro as patient continues to have feeling like there is something stuck in her throat. As mentioned above modified barium swallow done and it showed ventral osteophyte arising from C4 C5 that could be causing dysphagia. Patient denies any odynophagia. Will start her on Nexium. Continue avoiding dietary triggers. Patient will take 1 Colace in the evening. Increase fluid intake and activity to promote better bowel motility recommendation made by adrian johansen therapist in forced with patient. Patient will follow-up in our office in 2 months to discuss going for upper endoscopy and colonoscopy. She will call our office if she will experience any GI concerning symptoms. Patient is agreeable to this plan and verbalizes understanding of instructions. She was given the opportunity to ask questions and all questions answered. Plan Continue current treatment with Nexium and famotidine. Patient reports that she is feeling better. Her symptoms of dysphagia improved, however she continues to have neck pain and trouble swallowing solid food. Hold off endoscopy and colonoscopy. Patient will return in 3 months, sooner on as needed basis. Follow-up appointment with neurosurgery on the of this month. MRI done and will be reviewed by the provider then. Decision will be made if patient will require surgery or not. Patient is agreeable to this plan and verbalizes understanding of instructions. She was given the opportunity to ask questions and all questions answered. Thank you for allowing me to participate in her care Medications: Refilled esomeprazole magnesium (Nexium) 40 mg PO DAILY 90 caps 2RF K21.9 - Gastro- esophageal reflux disease without esophagitis famotidine 40 mg PO BEDTIME 90 tabs 3RF K21.9 - Gastro-esophageal reflux disease without esophagitis ] MRI OF THE CERVICAL SPINE Vertebral Bodies/Bone Marrow: No compression deformities. There is no gross bone marrow edema identified. No abnormal infiltrating bone marrow signal. There are ventral prominent osteophytes at C4-C5, C5-C6, and to a lesser degree C6-C7, with relative preservation of disc space, findings suggestive of DISH. * US ABD 06/19/24 FINDINGS: PANCREAS: Normal. Pancreatic duct measures approximately 2 mm. LIVER: Liver is of increased echogenicity and enlarged at 17.1 cm. The liver contour is normal. Parenchymal echogenicity is normal. No focal hepatic lesion. There is no intrahepatic biliary duct dilatation seen. GALLBLADDER: Normal. The gallbladder is physiologically distended without evidence of stones, sludge, polyps, wall thickening or pericholecystic fluid. Diffuse abdominal pain elicited during study. COMMON BILE DUCT: Normal in caliber measuring 0.4 cm in diameter. RIGHT KIDNEY: Normal. No hydronephrosis. No renal calculi or focal parenchymal lesions. The kidney measures 9.3 cm in maximum dimension. FREE FLUID: None. US/US abdomen limited IMPRESSION: Enlarged fatty liver. Laboratory Tests 06/19/24 10:44 WBC 6.6 Hgb 13.0 Hct 37.9 Plt Count 301 Estimated GFR 41 Total Bilirubin 0.4 Direct Bilirubin 0.1 AST 19 ALT 23 Alkaline Phosphatase 86 ULTRASOUND OF THE ABDOMEN 06/19/24 FINDINGS: PANCREAS: Normal. Pancreatic duct measures approximately 2 mm. LIVER: Liver is of increased echogenicity and enlarged at 17.1 cm. The liver contour is normal. Parenchymal echogenicity is normal. No focal hepatic lesion. There is no intrahepatic biliary duct dilatation seen. GALLBLADDER: Normal. The gallbladder is physiologically distended without evidence of stones, sludge, polyps, wall thickening or pericholecystic fluid. Diffuse abdominal pain elicited during study. COMMON BILE DUCT: Normal in caliber measuring 0.4 cm in diameter. RIGHT KIDNEY: Normal. No hydronephrosis. No renal calculi or focal parenchymal lesions. The kidney measures 9.3 cm in maximum dimension. FREE FLUID: None. US/US abdomen limited IMPRESSION: Enlarged fatty liver. REVIEW OF ER NOTE 06/19/2024 HPI narrative: 63-year-old female speaking came in for evaluation of abdominal pain. Pain is localized to the epigastric area with no radiation, pain is constant for a 1 month, worsening with any food or drink, pain is associated sometimes with nausea but no vomiting, no fever, no chills. Last bowel movement was this morning and was normal in color and consistency without blood, no dysuria, no frequency urination no hematuria, never had intra- abdominal surgery in the past. Patient declined alcohol use, no smoking, no drug abuse. CORRESPONDENCE On 07/02/24 @ 13:10 Gus Knox Wrote To Joana Hobbs Mariaelena [id number] Patient has been taking the trulicity for multiple years they state. Pt reports that they feel that the medication has been working OK. Pt states that their sx for their stomach have subsided, however they are now experiencing bloating and abdominal distention with any solid intake. Per provider request, pt was scheduled for an in person office visit. Pt is scheduled for 07/04/2024 @ 1530. On 06/29/24 @ 16:16 Gus Knox Wrote To Gus Knox Noted, I will call her on tuesday, thank you. On 06/29/24 @ 11:11 Joana Hobbs Wrote To Gus Knox I would like to know how long she has been on Trulicity? This seems to be a fairly new medication and it could be the underlying cause to the problem. Otherwise she would probably need to come in and see me since I do not know why she suddenly has become uncontrolled. On 06/29/24 @ 10:31 Gus Knox Wrote To Joana Hobbs Any assistance you can provide for this patient? Please advise. Thank you. Pt typically sees Linh On 06/29/24 @ 09:32 Palma Villa Wrote To Gus Knox Patient states that she has been taking Famotidine and Nexium, moving her bowels, and avoiding dietary triggers. Per patient she wakes up without any pain but as soon as she eats something the pain begins. She states she was told at the ER that she had gastritis but did not give her any medication for the pain. On 06/28/24 @ 09:27 Gus Knox Wrote To Palma Villa Can you help me with this patient? Please see below. Thank you! On 06/25/24 @ 19:08 Clementine Lopez Wrote To Gus Knox Patient was given Nexium and famotidine on last visit. Was patient taking the medication daily and avoiding dietary triggers before seen in the ER? Patient needs to make sure that she is moving her bowels well. On 06/25/24 @ 10:09 Rossi De Paz Wrote To Clementine Lopez Patient was seen in the ER and wanted to know if she can have meds for her abd pain. TODAY'S VISIT [place] # dtr translates per pt request This is my 1st contact with the patient She was seen in the ER in discharged with Mylanta and omeprazole with bicarb. This has not provided her with any relief. She has had about a month of pain just above the umbilcus that is always there but worsens with eating. She has tried to keep to a light diet of fruits and veggies w/o help. She can not describe the quality of the pain and it ranges from 8-10/10. The pain does not move but tends to stay centered just above the umbilicus and sometimes radiates around the umbilicus. She has intermittent associated nausea and vomiting. She has severe bloating and GERD. She has only mild relief with lauren seltzer. The symptoms seem to coincide when she was changed from Trulicity to Ozempic. This is the likely cause as Ozempic is known to cause slowing of gastric motility which could produce abdominal pain. She also has intermittent nausea and vomiting along with severe bloating. I think since this is driven by product short edges and she is unable to get her Trulicity for now we will try treating her with metoclopramide to promote better gastric motility to see if we can bridge her until the time she can get back to a treatment, Trulicity, that is much better tolerated and probably better for her. She says she is moving her bowels well and normally without any diarrhea or constipation. If this is not solving the problem and we do not think that it is time to delayed gastric emptying then we may consider an upper endoscopy or or even a HIDA scan to further investigate. If she simply can not tolerate the Reglan then we may need to go back to the prescriber and try harder to advocate forgetting her Trulicity. Return office visit in 2 weeks. 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 Mother Hx of colon cancer, stage I Hx of diabetes insipidus Social History Household Members: None Alcohol intake: former Patient Tobacco Use Status: Former Tobacco user Years Smoked: (onset 19yo, 1ppd x 42yrs, 40pyh - quit 2021) Review of Systems Const Denies fatigue, Denies fever(s), Denies night sweats, Reports poor appetite and Denies weight loss ENT Reports Normal hearing present, Denies dental pain, Denies dysphagia, Denies hearing loss, Denies mouth pain, Denies odynophagia, Denies throat swelling, Denies tongue swelling and Reports other (Dentition adequate) Card Reports no additional complaints Resp Reports no additional complaints GI Details: Reports abdominal pain, Denies melena, Reports bloating, Denies hematochezia, Denies constipation, Denies GI cramping, Denies dysphagia, Denies excessive flatus, Reports early satiety, Reports heartburn, Denies diarrhea, Reports nausea, Denies odynophagia, Reports vomiting and Denies hematemesis Skin/Breast Denies pruritus, Denies lesions, Denies rash and Denies jaundice Neuro Reports Normal hearing present and Denies Abnormal speech present Endo Denies fatigue Aller/Immun Denies throat swelling and Denies tongue swelling Physical Exam Vital Signs: Last Vital Signs Pulse 72 07/04/24 15:21 BP 134/79 07/04/24 15:21 BMI result Body Mass Index 27.7 Const General: cooperative, no acute distress, well developed and well groomed Nutritional Appearance: well nourished and obese Orientation/consciousness: oriented to person, oriented to place and oriented to time Limitations: language barrier HEENT Head: Yes normocephalic and Yes atraumatic Eyes General: appearance normal, both eyes and all related structures Pupils: Equal, round and reactive pupils present Neck Neck: Yes normal visual inspection and Yes no lymphadenopathy Thyroid: Thyroid normal Resp Effort & Inspection: normal respiratory effort and able to speak in complete sentences Auscultation: clear to auscultation bilaterally Cardio Rate: regular rate Rhythm: regular rhythm Heart sounds: Normal, physiologic split S2 sound present Peripheral pulses: radial pulses present and posterior tibial pulses present GI Inspection: No distended, Yes Abdominal panniculus present and Yes obesity Palpation (GI): Soft to palpation, Tenderness to palpation present (GI) in the epigastrum and periumbilically, no guarding, not rigid and No hepatosplenomegaly present Percussion: Yes normal to percussion Auscultation: normal bowel sounds Rectal Exam - Female: deferred Skin General skin exam: no rashes or lesions noted, turgor normal, skin not dry, no jaundice, No spider nevi and no striae Rashes: no rashes Nails: normal Neuro General: oriented to person, oriented to place and oriented to time Cranial nerves: Yes Equal, round and reactive pupils present and Yes Normal hearing present Speech: No Abnormal speech present Extrem General: Yes normal to inspection, No clubbing, No cyanosis and No edema Psych Appearance: grossly normal and well kempt Mental Status: mental status grossly normal Speech and movement: Normal speech and movement present Affect: normal affect Attitude: cooperative Thought process: Normal thought process present and not confabulating Thought content: Normal thought content present Insight: Limited insight present (Psych) Judgement: Limited judgement present (Psych) Results Reviewed Results Reviewed: MRI OF THE CERVICAL SPINE Vertebral Bodies/Bone Marrow: No compression deformities. There is no gross bone marrow edema identified. No abnormal infiltrating bone marrow signal. There are ventral prominent osteophytes at C4-C5, C5-C6, and to a lesser degree C6-C7, with relative preservation of disc space, findings suggestive of DISH. * US ABD 06/19/24 FINDINGS: PANCREAS: Normal. Pancreatic duct measures approximately 2 mm. LIVER: Liver is of increased echogenicity and enlarged at 17.1 cm. The liver contour is normal. Parenchymal echogenicity is normal. No focal hepatic lesion. There is no intrahepatic biliary duct dilatation seen. GALLBLADDER: Normal. The gallbladder is physiologically distended without evidence of stones, sludge, polyps, wall thickening or pericholecystic fluid. Diffuse abdominal pain elicited during study. COMMON BILE DUCT: Normal in caliber measuring 0.4 cm in diameter. RIGHT KIDNEY: Normal. No hydronephrosis. No renal calculi or focal parenchymal lesions. The kidney measures 9.3 cm in maximum dimension. FREE FLUID: None. US/US abdomen limited IMPRESSION: Enlarged fatty liver. Laboratory Tests 06/19/24 10:44 WBC 6.6 Hgb 13.0 Hct 37.9 Plt Count 301 Estimated GFR 41 Total Bilirubin 0.4 Direct Bilirubin 0.1 AST 19 ALT 23 Alkaline Phosphatase 86 ULTRASOUND OF THE ABDOMEN 06/19/24 FINDINGS: PANCREAS: Normal. Pancreatic duct measures approximately 2 mm. LIVER: Liver is of increased echogenicity and enlarged at 17.1 cm. The liver contour is normal. Parenchymal echogenicity is normal. No focal hepatic lesion. There is no intrahepatic biliary duct dilatation seen. GALLBLADDER: Normal. The gallbladder is physiologically distended without evidence of stones, sludge, polyps, wall thickening or pericholecystic fluid. Diffuse abdominal pain elicited during study. COMMON BILE DUCT: Normal in caliber measuring 0.4 cm in diameter. RIGHT KIDNEY: Normal. No hydronephrosis. No renal calculi or focal parenchymal lesions. The kidney measures 9.3 cm in maximum dimension. FREE FLUID: None. US/US abdomen limited IMPRESSION: Enlarged fatty liver. REVIEW OF ER NOTE 06/19/2024 HPI narrative: 63-year-old female speaking came in for evaluation of abdominal pain. Pain is localized to the epigastric area with no radiation, pain is constant for a 1 month, worsening with any food or drink, pain is associated sometimes with nausea but no vomiting, no fever, no chills. Last bowel movement was this morning and was normal in color and consistency without blood, no dysuria, no frequency urination no hematuria, never had intra- abdominal surgery in the past. Patient declined alcohol use, no smoking, no drug abuse. Assessment & Plan Assessment & Plan (1) Constipation: Code(s): K59.00 - Constipation, unspecified Category: Medical Qualifiers: Constipation type: chronic idiopathic constipation Qualified Code(s): K59.04 - Chronic idiopathic constipation (2) GERD (gastroesophageal reflux disease): Code(s): K21.9 - Gastro-esophageal reflux disease without esophagitis Category: Medical Qualifiers: Esophagitis presence: esophagitis presence not specified Qualified Code(s): K21.9 - Gastro-esophageal reflux disease without esophagitis (3) Gastroparesis: Comment: secondary to ozempic use but shortages are preventing the use of Trulicity which is better toerated by the patient. Code(s): K31.84 - Gastroparesis Category: Medical Plan [place] # dtr translates per pt request This is my 1st contact with the patient She was seen in the ER in discharged with Mylanta and omeprazole with bicarb. This has not provided her with any relief. She has had about a month of pain just above the umbilcus that is always there but worsens with eating. She has tried to keep to a light diet of fruits and veggies w/o help. She can not describe the quality of the pain and it ranges from 8-10/10. The pain does not move but tends to stay centered just above the umbilicus and sometimes radiates around the umbilicus. She has intermittent associated nausea and vomiting. She has severe bloating and GERD. She has only mild relief with lauren seltzer. The symptoms seem to coincide when she was changed from Trulicity to Ozempic. This is the likely cause as Ozempic is known to cause slowing of gastric motility which could produce abdominal pain. She also has intermittent nausea and vomiting along with severe bloating. I think since this is driven by product short edges and she is unable to get her Trulicity for now we will try treating her with metoclopramide to promote better gastric motility to see if we can bridge her until the time she can get back to a treatment, Trulicity, that is much better tolerated and probably better for her. She says she is moving her bowels well and normally without any diarrhea or constipation. If this is not solving the problem and we do not think that it is time to delayed gastric emptying then we may consider an upper endoscopy or or even a HIDA scan to further investigate. If she simply can not tolerate the Reglan then we may need to go back to the prescriber and try harder to advocate forgetting her Trulicity. Return office visit in 2 weeks. Medications: New metoclopramide HCl (Reglan) 5 mg PO QIDACHS 120 tabs 3RF K31.84 - Gastroparesis Coding Level of Care Code Est Pt Level 4 (99117) Diagnoses Chronic idiopathic constipation K59.04 Constipation type: chronic idiopathic constipation Gastroesophageal reflux disease, unspecified whether esophagitis present K21.9 Esophagitis presence: esophagitis presence not specified Gastroparesis K31.84 Time Spent (min) 38
[2024-07-04 15:21] VITALS: BP 134/79; PULSE 72; BMI 27.7
== END 2024-07-04 16:04 | disposition home or self-care (01) ==
PROVIDERS: Visit Provider Nurse Practitioner
DX: K59.04 Chronic idiopathic constipation (principal); K21.9 Gastro-esophageal reflux disease without esophagitis; K31.84 Gastroparesis
CPT/HCPCS: 99214

== ENCOUNTER → 2024-07-04 15:15 | Outpatient (BNVA) | payer MEDICAID, SELFPAY | PROVIDERS: Visit Provider Nurse Practitioner | DX: K21.9 Gastro-esophageal reflux disease without esophagitis (principal); K31.84 Gastroparesis; K59.04 Chronic idiopathic constipation; R10.9 Unspecified abdominal pain; R11.0 Nausea | CPT/HCPCS: 99212 ==

== ENCOUNTER 2024-07-17 11:17 | Outpatient (AMB) | payer MEDICAID, SELFPAY ==
[2024-07-17 11:22] VITALS: BP 119/73; PULSE 97; BMI 28.1
--- NOTE | 2024-07-17 11:22 | A.OFFVIS_ITS ---
Vital Signs 07/17/24 11:22 Height 5 ft 1 in Weight 148 lb 9.465 oz BMI 28.1 BP 119/73 Blood Pressure Location Lt brachial Position Sitting Pulse 97 Intake Visit Reasons: 2 weeks follow up abd pain, eval Reglan Intake Note: Joelle presents to in office follow up of abd pain. CC: Patient reports that she is feeling well with reglan and has not have abd pain. Seasonal Greenery Bundler Required: Yes Seasonal Greenery Bundler Name: daughter Accompanied by: Daughter Allergies No Known Allergies Allergy (Verified 07/27/24 11:35) HPI HPI 2 weeks follow up abd pain, eval Reglan: Details: Assessment & Plan (1) Constipation: Code(s): K59.00 - Constipation, unspecified Category: Medical Qualifiers: Constipation type: chronic idiopathic constipation Qualified Code(s): K59.04 - Chronic idiopathic constipation (2) GERD (gastroesophageal reflux disease): Code(s): K21.9 - Gastro-esophageal reflux disease without esophagitis Category: Medical Qualifiers: Esophagitis presence: esophagitis presence not specified Qualified Code(s): K21.9 - Gastro-esophageal reflux disease without esophagitis (3) Gastroparesis: Comment: secondary to ozempic use but shortages are preventing the use of Trulicity which is better toerated by the patient. Code(s): K31.84 - Gastroparesis Category: Medical Plan Nauruan # dtr translates per pt request This is my 1st contact with the patient She was seen in the ER in discharged with Mylanta and omeprazole with bicarb. This has not provided her with any relief. She has had about a month of pain just above the umbilcus that is always there but worsens with eating. She has tried to keep to a light diet of fruits and veggies w/o help. She can not describe the quality of the pain and it ranges from 8-10/10. The pain does not move but tends to stay centered just above the umbilicus and sometimes radiates around the umbilicus. She has intermittent associated nausea and vomiting. She has severe bloating and GERD. She has only mild relief with lauren seltzer. The symptoms seem to coincide when she was changed from Trulicity to Ozempic. This is the likely cause as Ozempic is known to cause slowing of gastric motility which could produce abdominal pain. She also has intermittent nausea and vomiting along with severe bloating. I think since this is driven by product short edges and she is unable to get her Trulicity for now we will try treating her with metoclopramide to promote better gastric motility to see if we can bridge her until the time she can get back to a treatment, Trulicity, that is much better tolerated and probably better for her. She says she is moving her bowels well and normally without any diarrhea or constipation. If this is not solving the problem and we do not think that it is time to delayed gastric emptying then we may consider an upper endoscopy or or even a HIDA scan to further investigate. If she simply can not tolerate the Reglan then we may need to go back to the prescriber and try harder to advocate forgetting her Trulicity. Return office visit in 2 weeks. Medications: New metoclopramide HCl (Reglan) 5 mg PO QIDACHS 120 tabs 3RF K31.84 - Gastroparesis TODAYS VISIT Nauruan #female family member translates per pt request She is now doing well on the reglan and no s/e. Keep 09/12 follow up with Linh. [facility] Medical History (Updated 07/19/24 @ 12:30 by Estephania Gutierrez, MENDEL) Asthma Depression Anxiety Dizziness Headache Hx pulmonary embolism (~2016) Personal history of nicotine dependence History of colon polyps Osteophyte of cervical spine Stented coronary artery (~2012) Elevated LFTs CAD (coronary artery disease) Dyslipidemia Hypertension Diabetic polyneuropathy associated with type 2 diabetes mellitus longterm (current) use of insulin Diabetes type 2, uncontrolled (~2011) GERD (gastroesophageal reflux disease) Constipation Personal history of PE (pulmonary embolism) (~2013) Current use of anticoagulant therapy (~2013) Surgical History History of colonoscopy History of esophagogastroduodenoscopy (EGD) History of heart artery stent Family History Father No problems noted. Mother Hx of colon cancer, stage I Hx of diabetes insipidus Social History (Updated 07/19/24 @ 12:39 by Estephania Gutierrez RN) Household Members: None Housing: Apartment Are you a primary skin care technician to a significant other at home: No Do you presently have visiting nurse or other home services: Yes (HIP HOP DANCE INSTRUCTOR in the morning 1 hour) Alcohol intake: former Patient Tobacco Use Status: Former Tobacco user Tobacco use type: Cigarette Years Smoked: (onset 19yo, 1ppd x 42yrs, 40pyh - quit 2021) Smoked in Last 30 Days: No Use of substances other than those prescribed or required for medical reasons: No Have you been hit, kicked, punched, or otherwise hurt by someone within the past year? If so, by whom?: No Are you DNR?: No Advance Directives: No Advance Directives Information Provided: Yes Advance Directives on File: No Recently lost weight without trying: No How much weight loss: 2-13 pounds Eating poorly because of decreased appetite: No Nutrition screen score: 1 Nutrition Risks: Dental problems and Difficulty swallowing Review of Systems Const Denies fatigue, Denies fever(s), Denies night sweats, Denies poor appetite and Denies weight loss ENT Reports Normal hearing present, Denies dental pain, Denies dysphagia, Denies hearing loss, Denies mouth pain, Denies odynophagia, Denies throat swelling, Denies tongue swelling and Reports other (Dentition adequate) Card Reports no additional complaints Resp Reports no additional complaints GI Details: Denies abdominal pain, Denies melena, Denies bloating, Denies hematochezia, Denies constipation, Denies GI cramping, Denies dysphagia, Denies excessive flatus, Reports early satiety, Reports heartburn, Denies diarrhea, Reports nausea, Denies odynophagia, Denies vomiting and Denies hematemesis Skin/Breast Denies pruritus, Denies lesions, Denies rash and Denies jaundice Neuro Reports Normal hearing present and Denies Abnormal speech present Endo Denies fatigue Aller/Immun Denies throat swelling and Denies tongue swelling Physical Exam Vital Signs: Last Vital Signs Pulse 97 07/17/24 11:22 BP 119/73 07/17/24 11:22 BMI result Body Mass Index 28.1 Const General: cooperative, no acute distress, well developed and well groomed Nutritional Appearance: well nourished and obese Orientation/consciousness: oriented to person, oriented to place and oriented to time Limitations: language barrier and wheelchair HEENT Head: Yes normocephalic and Yes atraumatic Eyes General: appearance normal, both eyes and all related structures Pupils: Equal, round and reactive pupils present Neck Neck: Yes normal visual inspection and Yes no lymphadenopathy Thyroid: Thyroid normal Resp Effort & Inspection: normal respiratory effort and able to speak in complete sentences Auscultation: clear to auscultation bilaterally Cardio Rate: regular rate Rhythm: regular rhythm Heart sounds: Normal, physiologic split S2 sound present Peripheral pulses: radial pulses present and posterior tibial pulses present GI Inspection: No distended, No Abdominal panniculus present and Yes obesity Palpation (GI): Soft to palpation, nontender, no guarding, not rigid and No hepatosplenomegaly present Percussion: Yes normal to percussion Auscultation: normal bowel sounds Rectal Exam - Female: deferred Skin General skin exam: no rashes or lesions noted, turgor normal, skin not dry, no jaundice, No spider nevi and no striae Rashes: no rashes Nails: normal Neuro General: oriented to person, oriented to place and oriented to time Cranial nerves: Yes Equal, round and reactive pupils present and Yes Normal hearing present Speech: No Abnormal speech present Extrem General: Yes normal to inspection, No clubbing, No cyanosis and No edema Psych Appearance: grossly normal and well kempt Mental Status: mental status grossly normal Speech and movement: Normal speech and movement present Affect: normal affect Attitude: cooperative Thought process: Normal thought process present and not confabulating Thought content: Normal thought content present Insight: Limited insight present (Psych) Judgement: Limited judgement present (Psych) Assessment & Plan Assessment & Plan (1) Gastroparesis: Comment: secondary to ozempic use but shortages are preventing the use of Trulicity which is better toerated by the patient. Code(s): K31.84 - Gastroparesis Category: Medical (2) GERD (gastroesophageal reflux disease): Code(s): K21.9 - Gastro-esophageal reflux disease without esophagitis Category: Medical Qualifiers: Esophagitis presence: esophagitis presence not specified Qualified Code(s): K21.9 - Gastro-esophageal reflux disease without esophagitis (3) Constipation: Code(s): K59.00 - Constipation, unspecified Category: Medical Qualifiers: Constipation type: chronic idiopathic constipation Qualified Code(s): K59.04 - Chronic idiopathic constipation Plan Nauruan #female family member translates per pt request She is now doing well on the reglan and no s/e. Keep 09/12 follow up with Linh. Medications: Refilled metoclopramide HCl (Reglan) 5 mg PO QIDACHS 120 tabs 3RF K31.84 - Gastroparesis Coding Level of Care Code Est Pt Level 3 (91101) Diagnoses Gastroparesis K31.84 Gastroesophageal reflux disease, unspecified whether esophagitis present K21.9 Esophagitis presence: esophagitis presence not specified Chronic idiopathic constipation K59.04 Constipation type: chronic idiopathic constipation
== END 2024-07-17 11:32 | disposition home or self-care (01) ==
PROVIDERS: Visit Provider Nurse Practitioner
DX: K31.84 Gastroparesis (principal); K21.9 Gastro-esophageal reflux disease without esophagitis; K59.04 Chronic idiopathic constipation
CPT/HCPCS: 99213

== ENCOUNTER → 2024-07-17 11:17 | Outpatient (BNVA) | payer MEDICAID, SELFPAY | PROVIDERS: Visit Provider Nurse Practitioner | DX: K31.84 Gastroparesis (principal); K21.9 Gastro-esophageal reflux disease without esophagitis; K59.04 Chronic idiopathic constipation | CPT/HCPCS: 99212 ==

== ENCOUNTER 2024-07-27 11:22 | Outpatient (AMB) | payer MEDICAID, SELFPAY ==
--- NOTE | 2024-07-27 11:29 | HO.SPINEOV ---
Intake Visit Reasons: Discuss Sx Intake Note: Ms. Myers is here today to Discuss Surgery. Carroting Machine Offbearer Required: Yes Carroting Machine Offbearer Services: Carroting Machine Offbearer Present Carroting Machine Offbearer Name: Priscilla Allergies No Known Allergies Allergy (Verified 07/27/24 11:35) Assessment & Plan Assessment & Plan (1) Osteophyte of cervical spine: Code(s): M25.78 - Osteophyte, vertebrae Category: Medical Plan Procedure and expected postoperative course discussed. This will be a procedure in day surgery. Sedrick Guy MD, PhD Spine Fellowship Trained Neurosurgeon Director, [facility] Coding Level of Care Code Est Pt Level 2 (44660) Diagnoses Osteophyte of cervical spine M25.78
== END 2024-07-27 11:48 | disposition home or self-care (01) ==
PROVIDERS: PCP Nurse Practitioner Primary Care; Referring Provider Nurse Practitioner Primary Care; Visit Provider Neurological Surgery
DX: M25.78 Osteophyte, vertebrae (principal)
CPT/HCPCS: 99212

== ENCOUNTER → 2024-07-27 11:22 | Outpatient (BNVA) | payer MEDICAID, SELFPAY | PROVIDERS: PCP Nurse Practitioner Primary Care; Visit Provider Neurological Surgery | DX: M25.78 Osteophyte, vertebrae (principal) | CPT/HCPCS: 99212 ==

== ENCOUNTER 2024-08-02 06:50 | Day surgery (SDC) | payer MEDICAID, SELFPAY ==
[2024-07-19 11:57] VITALS: BP 106/58; PULSE 92; RESP 16; O2SAT 98; BMI 28.1
--- NOTE | 2024-07-19 12:31 | P.CONAN_ITS ---
Documented by User: Funmilayo Beebe NP 07/25/24 09:19 HPI - Anesthesia Eval Consult details Narrative: 64yo F for C4-5 Resection of Anterior Osteophytes, 08/02/24 Recent URI. Tx with abx/steroids with improvement No CP/SOB with walking ~ 2miles some days PE: Eliquis CAD s/p stent 2012. Follows [facility] [place] [facility]. Stable at 12/2023 office visit with yearly f/u GERD: ppi controls DM: FBS ~ 117 Asthma: Spiriva BID, Albuterol TID. 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 (Acute) Personal history of nicotine dependence (Acute) GERD (gastroesophageal reflux disease) (Acute) Constipation (Acute) Osteophyte of cervical spine (Acute) Elevated LFTs (Acute) Past Medical History Medical History Asthma Depression Anxiety Dizziness Headache Hx pulmonary embolism (~2016) Personal history of nicotine dependence History of colon polyps Osteophyte of cervical spine Stented coronary artery (~2012) Elevated LFTs CAD (coronary artery disease) Dyslipidemia Hypertension Diabetic polyneuropathy associated with type 2 diabetes mellitus 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) Alcohol intake: former Patient Tobacco Use Status: Former Tobacco user Tobacco use type: Cigarette Years Smoked: (onset 19yo, 1ppd x 42yrs, 40pyh - quit 2021) Meds Allergies Allergy/AdvReac Type Severity Reaction Status Date / Time No Known Allergies Allergy Verified 07/27/24 11:35 Home Medications ?Medication ?Instructions ?Recorded ?Confirmed ?Last Taken ?Type albuterol sulfate 90 mcg/actuation 2 puff inhalation Q4-6H PRN 08/26/20 07/18/24 Unknown History aerosol inhaler (ProAir HFA) Shortness Of Breath Or Wheezing aspirin 81 mg tablet 81 mg PO DAILY 08/26/20 07/18/24 07/27/24 History blood-glucose meter (FreeStyle 08/26/20 12/08/23 Unknown History Lite Meter kit) budesonide-formoterol HFA 160 2 puff inhalation BID 08/26/20 07/18/24 Unknown History mcg-4.5 mcg/actuation aerosol inhaler fenofibrate micronized 134 mg 134 mg PO DAILY 08/26/20 07/18/24 Unknown History capsule furosemide 20 mg tablet 20 mg PO DAILY PRN Edema 08/26/20 07/18/24 Unknown History sertraline 100 mg tablet (Zoloft) 200 mg PO BEDTIME 08/26/20 07/18/24 Unknown History apixaban 2.5 mg tablet (Eliquis) 2.5 mg PO 01/13/22 12/08/23 07/27/24 History acarbose 100 mg tablet 100 mg PO TID 06/08/23 07/18/24 Unknown History cholecalciferol (vitamin D3) 50 50 mcg PO QAM 03/09/24 07/18/24 Unknown History mcg (2,000 unit) tablet atorvastatin 40 mg tablet 40 mg PO BEDTIME 05/09/24 07/18/24 Unknown History bupropion HCl 100 mg tablet,12 hr 100 mg PO QAM 05/09/24 07/18/24 Unknown History sustained-release cetirizine 10 mg tablet 10 mg PO QAM 05/09/24 07/18/24 Unknown History lorazepam 0.5 mg tablet 0.5 mg PO BID PRN Anxiety 05/09/24 07/18/24 Unknown History sennosides 8.6 mg-docusate sodium 2 tab PO DAILY PRN constipation 05/09/24 07/18/24 Unknown History 50 mg tablet (Stimulant Laxative Plus) tiotropium bromide 18 mcg capsule 1 cap inhalation DAILY 05/09/24 07/18/24 Unknown History with inhalation device (Spiriva with HandiHaler) zolpidem 10 mg tablet 10 mg PO BEDTIME PRN Insomnia 05/09/24 07/18/24 Unknown History gabapentin 300 mg capsule 600 mg PO TID 07/04/24 07/18/24 Unknown History semaglutide 0.25 mg or 0.5 mg (2 0.25 mg subcut .QTUESDAY 07/04/24 07/19/24 07/24/24 History mg/3 mL) subcutaneous pen injector (Ozempic) acetaminophen 500 mg tablet 1,000 mg PO Q6H PRN Pain 07/18/24 07/18/24 Unknown History albuterol sulfate 2.5 mg/3 mL 1 inhalation Q6H PRN wheezing 07/18/24 Unknown History (0.083 %) solution for nebulization fluticasone propionate 50 1 spray intranasal BID 07/18/24 07/18/24 Unknown History mcg/actuation nasal spray,suspension metformin 500 mg tablet,extended 500 mg PO BID 07/18/24 07/18/24 Unknown History release 24 hr metoprolol succinate 25 mg 25 mg PO BID 07/18/24 07/18/24 Unknown History tablet,extended release 24 hr (Toprol XL) nitroglycerin 0.4 mg sublingual 0.4 mg sublingual Q5M PRN Chest 07/18/24 07/18/24 Unknown History tablet Pain esomeprazole magnesium 40 mg 40 mg PO DAILY 07/19/24 07/19/24 Unknown History capsule,delayed release Exam Height,Weight and Vital Signs: Height 5 ft 1 in Weight 67.4 kg Last Vital Signs Pulse 92 07/19/24 11:57 Resp 16 07/19/24 11:57 BP 106/58 L 07/19/24 11:57 Pulse Ox 98 07/19/24 11:57 O2 Del Method Room Air 07/19/24 11:57 Pertinent Lab Results Pertinent Lab Results: Laboratory Tests 06/19/24 10:44 WBC 6.6 Hgb 13.0 Hct 37.9 Plt Count 301 Sodium 140 Potassium 4.7 D Chloride 107 Carbon Dioxide 28 BUN 15 Creatinine 1.32 Narrative Narrative: EKG 06/2024 Vent. Rate : 061 BPM Atrial Rate : 061 BPM P-R Int : 136 ms QRS Dur : 088 ms QT Int : 356 ms P-R-T Axes : 048 021 073 degrees QTc Int : 358 ms Artifact in tracing Normal sinus rhythm ST & T wave abnormality, consider anterior ischemia Abnormal ECG When compared with ECG of 28-DEC-2023 08:47, QT has shortened Airway TM Dist: >3cm Neck ROM: Limited Loose/Missing/Broken Teeth: Yes (#10 broken, missing teeth throughout) Heart: RRR Lungs: Ins and Exp wheeze Assessment and Plan Assessment Anesthesia Assessment: Anesthesia Plan Discussed, Smoking Cess. Discussed and PAT Visit Final Anesthetic Review Family History of Problems with Anesthesia: No History of Problems with Anesthesia: No Documented by User: Korina Garcia MD 08/02/24 11:30 HPI - Anesthesia Eval Anesthesia Pre-Procedure Meds Is the patient on any of the following meds?: GLP1/DPP4 (Semaglutide 07/24/24) If yes to any meds - educate patient: Pt education - increased risk of aspiration and/or euvolemic DKA PMFSH Active Problems Active Problems: All Active Problems Gastroparesis (Acute) Abnormal EKG (Acute) CAD (coronary artery disease) (Acute). Denies recent chest psin Stented coronary artery (Acute ~2012) Personal history of PE (pulmonary embolism) (Chronic ~2013) Current use of anticoagulant therapy (Acute ~2013)- Eliquis. 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 Denies UE weakness or numbness Elevated LFTs (Acute) HUSSEIN. 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) Alcohol intake: former Patient Tobacco Use Status: Former Tobacco user Tobacco use type: Cigarette Years Smoked: (onset 19yo, 1ppd x 42yrs, 40pyh - quit 2021) Meds Allergies Allergy/AdvReac Type Severity Reaction Status Date / Time No Known Allergies Allergy Verified 07/27/24 11:35 Home Medications ?Medication ?Instructions ?Recorded ?Confirmed ?Last Taken ?Type albuterol sulfate 90 mcg/actuation 2 puff inhalation Q4-6H PRN 10/20/20 09/11/24 Unknown History aerosol inhaler (ProAir HFA) Shortness Of Breath Or Wheezing aspirin 81 mg tablet 81 mg PO DAILY 08/26/20 07/18/24 07/27/24 History blood-glucose meter (FreeStyle 08/26/20 12/08/23 Unknown History Lite Meter kit) budesonide-formoterol HFA 160 2 puff inhalation BID 08/26/20 07/18/24 Unknown History mcg-4.5 mcg/actuation aerosol inhaler fenofibrate micronized 134 mg 134 mg PO DAILY 08/26/20 07/18/24 Unknown History capsule furosemide 20 mg tablet 20 mg PO DAILY PRN Edema 08/26/20 07/18/24 Unknown History sertraline 100 mg tablet (Zoloft) 200 mg PO BEDTIME 08/26/20 07/18/24 Unknown History apixaban 2.5 mg tablet (Eliquis) 2.5 mg PO 01/13/22 12/08/23 07/27/24 History acarbose 100 mg tablet 100 mg PO TID 06/08/23 07/18/24 Unknown History cholecalciferol (vitamin D3) 50 50 mcg PO QAM 03/09/24 07/18/24 Unknown History mcg (2,000 unit) tablet atorvastatin 40 mg tablet 40 mg PO BEDTIME 05/09/24 07/18/24 Unknown History bupropion HCl 100 mg tablet,12 hr 100 mg PO QAM 05/09/24 07/18/24 Unknown History sustained-release cetirizine 10 mg tablet 10 mg PO QAM 05/09/24 07/18/24 Unknown History lorazepam 0.5 mg tablet 0.5 mg PO BID PRN Anxiety 05/09/24 07/18/24 Unknown History sennosides 8.6 mg-docusate sodium 2 tab PO DAILY PRN constipation 05/09/24 07/18/24 Unknown History 50 mg tablet (Stimulant Laxative Plus) tiotropium bromide 18 mcg capsule 1 cap inhalation DAILY 05/09/24 07/18/24 Unknown History with inhalation device (Spiriva with HandiHaler) zolpidem 10 mg tablet 10 mg PO BEDTIME PRN Insomnia 05/09/24 07/18/24 Unknown History gabapentin 300 mg capsule 600 mg PO TID 07/04/24 07/18/24 Unknown History semaglutide 0.25 mg or 0.5 mg (2 0.25 mg subcut .QTUESDAY 07/04/24 07/19/24 07/24/24 History mg/3 mL) subcutaneous pen injector (Ozempic) acetaminophen 500 mg tablet 1,000 mg PO Q6H PRN Pain 07/18/24 07/18/24 Unknown History albuterol sulfate 2.5 mg/3 mL 1 inhalation Q6H PRN wheezing 07/18/24 Unknown History (0.083 %) solution for nebulization fluticasone propionate 50 1 spray intranasal BID 07/18/24 07/18/24 Unknown History mcg/actuation nasal spray,suspension metformin 500 mg tablet,extended 500 mg PO BID 07/18/24 07/18/24 Unknown History release 24 hr metoprolol succinate 25 mg 25 mg PO BID 07/18/24 07/18/24 Unknown History tablet,extended release 24 hr (Toprol XL) nitroglycerin 0.4 mg sublingual 0.4 mg sublingual Q5M PRN Chest 07/18/24 07/18/24 Unknown History tablet Pain esomeprazole magnesium 40 mg 40 mg PO DAILY 07/19/24 07/19/24 Unknown History capsule,delayed release Exam Height,Weight and Vital Signs: Height 5 ft 1 in Weight 67.4 kg Last Vital Signs Pulse 92 07/19/24 11:57 Resp 16 07/19/24 11:57 BP 106/58 L 07/19/24 11:57 Pulse Ox 98 07/19/24 11:57 O2 Del Method Room Air 07/19/24 11:57 Height 5 ft 1 in Weight 67.245 kg Vital Signs Temp Pulse Resp BP Pulse Ox O2 Del Method 08/02/24 08:35 98.1 F 72 16 141/72 H 97 Room Air Pertinent Lab Results Pertinent Lab Results: Laboratory Tests 06/19/24 10:44 WBC 6.6 Hgb 13.0 Hct 37.9 Plt Count 301 Sodium 140 Potassium 4.7 D Chloride 107 Carbon Dioxide 28 BUN 15 Creatinine 1.32 Lab Results 08/02/24 Range/Units 08:49 POC Glucose 166 H (60-115) mg/dL Airway Mallampati Class: II TM Dist: >3cm Neck ROM: Full Loose/Missing/Broken Teeth: Yes (Broken tooth top left, missing several teeth. Denies loose teeth) Lungs: CTAB Assessment and Plan Assessment Anesthesia Assessment: Anesthesia Plan Discussed and Chart Reviewed Final Anesthetic Review Family History of Problems with Anesthesia: No History of Problems with Anesthesia: No NPO: Yes ASA Class: III Final Preanesthetic Review: No Changes in Pt Med Stat, Meds/Allgs Chart Reviewed, Consent Obtained/Reviewed and Anes Risks/Benef Reviewed Patient Risk: Intermediate Procedure Risk: Low Assessment/Block/Sedation in SS: Assess/Block/Sedation-SS Anesthetic Plan Anesthetic Plan: GA Disposition: Standard PACU
[2024-08-02] VITALS (8 sets, daily range): BP systolic 119–157; BP diastolic 72–83; PULSE 72–91; RESP 15–18; TEMP 36.1–36.7; O2SAT 97–99; BMI 28.0
[2024-08-02 08:52] LABS: Glucose, Whole Blood 166 mg/dL (60-115)
[2024-08-02] MEDS: Lactated Ringers 1,000 ML 100 ML IVCONT (09:02)
[2024-08-02] MEDS: Gabapentin 300 MG CAPSULE PO (09:03)
[2024-08-02] MEDS: methocarbamoL 750 MG TABLET PO (09:03)
--- NOTE | 2024-08-02 09:32 | P.HPSUR_ITS ---
Pre-Procedural Eval Section A - 24 Hr Update-Section A only Date of Service: 08/02/24 The patient is an INPATIENT: No Section B - Complete if H&P > 30 days Chief Complaint: Osteophyte, vertebrae Allergies: Allergies Allergy/AdvReac Type Severity Reaction Status Date / Time No Known Allergies Allergy Verified 07/27/24 11:35 Review of Systems Sugical H&P ROS: Negative: Constitution, Cardiovascular, Respiratory, Neurological, Psychiatric, Hem-Onc, Allergic/Immunologic, Gastrointestinal, Genitourinary, Musculoskeletal, Integumentary, Endocrine and Eyes/ Ears/Nose/Throat Exam Surgical H&P Exam: Normal: HEENT, Normal: Heart, Normal: Lungs, Normal: Extremities, Normal: Abdomen, Normal: Skin and Normal: Neurological (Awake, alert) Plan Diagnosis/Plan: Unchanged I have reviewed the history and physical and performed a pertinent physical examination on my patient. No changes have occurred unless specified. Resection anterior osteophytes C4-C5 Time Spent With Patient Time: Total time managing care of this patient today __5__ minutes.
--- NOTE | 2024-08-02 09:35 | P.DS_ITS ---
DS: Providers Provider Date of Service: 08/02/24 Date of discharge: 08/02/24 Primary care physician: Sepideh Hopkins NP Admitting clinician: Sedrick Guy DS: Diagnosis Discharge Diagnosis (1) Osteophyte of cervical spine: Status: Acute DS: Summary Time Attestation Discharge Coordination Time (in mins): 6 Quality: Safe Use of Opioids Does Pt have an Active Cancer Diagnosis on the Problem List?: No Quality: Stroke Does the patient have a stroke diagnosis?: No Physical Exam Vital Signs: Vital Signs: Last Vital Signs Temp 98.1 F 08/02/24 08:35 Pulse 72 08/02/24 08:35 Resp 16 08/02/24 08:35 BP 141/72 H 08/02/24 08:35 Pulse Ox 97 08/02/24 08:35 O2 Del Method Room Air 08/02/24 08:35 BMI result Body Mass Index 28.0 DS: Data Data Completed and Pending Labs on day of discharge: Laboratory Results - last 24 hr 08/02/24 08:49 POC Glucose 166 H Discharge Plan Discharge Patient Disposition: Home, Self-Care Referrals: Sepideh Hopkins NP [Primary Care Provider] - 1 Week Discharge Medications: New tramadol 50 mg tablet 50 mg PO Q8H PRN (Reason: pain) Qty: 20 0RF Continued alcohol swabs [Alcohol Pads] Pads, Medicated 1 pad topical .4 times a day 30 Days Qty: 200 6RF (DME) blood-glucose meter [FreeStyle [place] Lite] Kit See Rx Instructions .ROUTE .MEDSUPPLY Qty: 1 0RF Rx Instructions: To test bg 3x/day (DME) lancets [FreeStyle Lancets] 28 gauge misc MISCELLANEOUS Qty: 300 11RF Rx Instructions: 3 times a day (DME) FreeStyle Lite Strips Strip See Rx Instructions .ROUTE .MEDSUPPLY Qty: 300 2RF Rx Instructions: 4 times a day Lantus Solostar U-100 Insulin 100 unit/mL (3 mL) insulin pen 46 unit subcut QPM Qty: 15 5RF insulin aspart U-100 [Novolog FlexPen U-100 Insulin] 100 unit/mL (3 mL) insulin pen See Rx Instructions subcut TID Qty: 15 5RF Rx Instructions: 16units with largest meal of the day and 12 units for 2 other meals. subcutaneously 3 times a day; subcutaneously 3 times a day; pioglitazone 15 mg tablet 15 mg PO DAILY Qty: 30 0RF sertraline [Zoloft] 100 mg Tablet 200 mg PO BEDTIME Rx Instructions: take 2 tablets bid fenofibrate micronized 134 mg Capsule 134 mg PO DAILY furosemide 20 mg Tablet 20 mg PO DAILY PRN (Reason: Edema) albuterol sulfate [ProAir HFA] 90 mcg/actuation Hfa Aerosol Inhaler 2 puff INHALATION Q4-6H PRN (Reason: Shortness Of Breath Or Wheezing) budesonide-formoterol 160-4.5 mcg/actuation Hfa Aerosol Inhaler 2 puff INHALATION BID (DME) blood-glucose meter [FreeStyle Lite Meter] Kit MISCELLANEOUS Rx Instructions: use as directed TID albuterol sulfate 2.5 mg /3 mL (0.083 %) solution for nebulization 1 inhalation Q6H PRN (Reason: wheezing) acetaminophen 500 mg Tablet 1,000 mg PO Q6H PRN (Reason: Pain) nitroglycerin 0.4 mg Tablet, Sublingual 0.4 mg SUBLINGUAL Q5M PRN (Reason: Chest Pain) Rx Instructions: do not exceed 3 doses per episode metoprolol succinate [Toprol XL] 25 mg Tablet Extended Release 24 Hr 25 mg PO BID fluticasone propionate 50 mcg/actuation [place],Suspension 1 spray INTRANASAL BID Rx Instructions: administer into each nostril metformin 500 mg Tablet Extended Release 24 Hr 500 mg PO BID esomeprazole magnesium 40 mg capsule,delayed release(DR/EC) 40 mg PO DAILY (DME) pen needle, diabetic [BD Ultra-Fine [place] Pen Needle] 32 gauge x 5/32 needle See Rx Instructions .ROUTE .MEDSUPPLY Qty: 150 11RF Rx Instructions: four times a day cholecalciferol (vitamin D3) 50 mcg (2,000 unit) tablet 50 mcg PO QAM docusate sodium [Colace] 100 mg capsule 100 mg PO DAILY Qty: 30 3RF gabapentin 300 mg capsule 600 mg PO TID Ozempic 0.25 mg or 0.5 mg (2 mg/3 mL) pen injector 0.25 mg subcut .QTUESDAY acarbose 100 mg tablet 100 mg PO TID bupropion HCl 100 mg tablet sustained-release 12 hr 100 mg PO QAM zolpidem 10 mg tablet 10 mg PO BEDTIME PRN (Reason: Insomnia) lorazepam 0.5 mg tablet 0.5 mg PO BID PRN (Reason: Anxiety) tiotropium bromide [Spiriva with HandiHaler] 18 mcg capsule, w/inhalation device 1 cap inhalation DAILY cetirizine 10 mg tablet 10 mg PO QAM atorvastatin 40 mg tablet 40 mg PO BEDTIME sennosides-docusate sodium [Stimulant Laxative Plus] 8.6-50 mg tablet 2 tab PO DAILY PRN (Reason: constipation) esomeprazole magnesium [Nexium] 40 mg capsule,delayed release(DR/EC) 40 mg PO DAILY Qty: 90 2RF famotidine 40 mg tablet 40 mg PO BEDTIME Qty: 90 3RF metoclopramide HCl [Reglan] 5 mg tablet 5 mg PO QIDACHS Qty: 120 3RF Held aspirin 81 mg Tablet 81 mg PO DAILY Hold Instructions: Resume on 08/09/24. You may resume 1 week after surgery Eliquis 2.5 mg tablet 2.5 mg PO Hold Instructions: Resume on 08/05/24. You may resume 3 days after surgery Discharge Orders: Discharge Order (Routine); Ordered 08/02/24 Ordered By: Josh Martinez Diet: Advance to usual diet Activity on Discharge: As tolerated Activity Restrictions/Additional Instructions: After your spinal surgery we ask you to observe the following restrictions/guidelines: Activity: It is normal to feel some discomfort as you increase your activity, but that will improve with time. We ask you avoid heavy lifting or acitivities that cause pain. As a general rule, 8lbs is a safe limit for lifting right after surgery. Walk as much as you feel comfortable but not to exhaustion. You will feel extra tired the first few days after surgery. Stay well hydrated. It is OK to walk up and down stairs You may return to driving when you are off narcotics (such as vicodin, ox ycodone, dilaudid, etc), and you are back to normal functional capacity. If you have any concerns please check with office before driving. Return to work is specific to each patient and each surgery, so please speak with your doctor/PA at first follow up. Please bring paperwork such as FMLA at that time if you need it filled out. Medications: For optimum pain control, it is best to start with a combination of 500 mg of Tylenol every 4 hours with 600 mg of Motrin every 8 hours, and use narcotics as needed in between for breakthrough pain. We will give you a short supply of narcotics after surgery (usually one weeks worth). If you need more please call the office but do not use more than prescribed. You will need to give our office 48 hours notice if you need n arcotics refilled and we do not fill narcotics on weekends or evenings. If you are on a narcotic, it is a good idea to take a stool softener such as colace or senna to avoid constipation If you take blood thinner such as aspirin, Plavix, Coumadin, Effient, Eliquis etc for conditions such as Afib, DVT, Pulmonary embolus, coronary disease, stents etc please speak with your surgeon about specific details as to when you can resume these medications. You can resume NSAIDs on post op day 1 (eg: Motrin, Naproxen, etc). Follow up: Please call the office, , after surgery to arrange a 3 week follow up for wound check. Wound Care: You may remove your dressing on the first day after surgery. ?You may ?leave open to air. Please do not remove the steri strips underneath. they will fall off on their own in one week. IT IS NORMAL FOR THE WOUND TO OOZE OR BE BLOODY FOR A FEW DAYS AFTER SURGERY. ?IF THIS HAPPENS JUST PLACE NEW DRESSING OVER IT TO AVOID STAINING CLOTHES. You may shower on post op day # 1 We ask that you do not let the water soak the wound. If it does get wet, just towel dry lightly. Please do not scrub your incision or place any type of chemical/ointment on the wound. No tub baths, pools or jacuzzis for one month. If you have any leaking or redness from your wound, or fevers, please call office Print Language: Syriac
--- NOTE | 2024-08-02 10:56 | P.OP_ITS ---
Operative Note Operative Note Date of Service: 08/02/24 Narrative: Preoperative Diagnosis: Dysphagia due to excessive bone formation of the C4 and C5 vertebral bodies Procedure: Partial corpectomy C4 and C5 Informed Consent was obtained for this operation. I have explained the nature, purpose and benefits of the operation. I have discussed the risks and benefit of the operation including possible complications or adverse events with patient/family. Alternative(s) were discussed with the patient with their relative benefits and risks as well as the consequences of not accepting the operation were included in obtaining consent. Surgeon: JESSICA BAEZ MD, PHD Procedure Assisted By: wilfredo Moreno Description of Procedure: This patient is suffering from dysphagia. Imaging reviews large anterior bone formation from the body of C4 and C5 displacing esophagus. She was offered a partial resection of the C5-C5 vertebral bodies to decompress the esophagus. The procedure complications were explained. The patient was consented. The patient was brought to the operating room and endotracheally intubated. The patient was put in supine position with slight extension of the neck. Prep and drape was done followed by timeout. A mid cervical incision was made followed by opening of the platysma. A large anterior bone mass of approximately 2 x 2 cm could be palpated. The esophagus was attached to it and had to be dissected in order to completely expose the bone mass. When the bone mass was exposed in all direction a [place] retractor was inserted. Then with a high-speed drill the bone mass was resected from the C4 and C5 vertebral bodies until the bony gonzáles rfaces were equivalent to the surrounding normal bone. In this way the longus colli muscles and esophagus were returned to their original position. Hemostasis was done. The physician licensed loan officer assistant closed the incision in 2 layers with a 3-0 Vicryl. Steri-Strips used to approximate incision. An OpSite with Tegaderm was used to cover the incision. All sponge and needle counts were correct. Patient was extubated and transported in stable is to recovery room. Anesthesia: General Estimated Blood Loss (ml): Minimal Duration of Surgery: 60 minute Postoperative Plan: Discharge home Complications: None
== END 2024-08-02 12:59 | disposition home or self-care (01) ==
PROVIDERS: PCP Nurse Practitioner Primary Care; Visit Provider Neurological Surgery
PROC: (CPT 63081; principal; 2024-08-02 10:00)
DX: R13.19 Other dysphagia (principal); M25.78 Osteophyte, vertebrae; K21.9 Gastro-esophageal reflux disease without esophagitis; Z86.711 Personal history of pulmonary embolism; Z79.01 Long term (current) use of anticoagulants; I10 Essential (primary) hypertension; I25.10 Atherosclerotic heart disease of native coronary artery without angina pectoris; Z95.5 Presence of coronary angioplasty implant and graft; J45.909 Unspecified asthma, uncomplicated; E11.42 Type 2 diabetes mellitus with diabetic polyneuropathy; Z79.4 Long term (current) use of insulin; Z79.84 Long term (current) use of oral hypoglycemic drugs; Z79.899 Other long term (current) drug therapy; Z87.891 Personal history of nicotine dependence
CPT/HCPCS: 63081; 82947; J0131; J0690; J1596; J2250; J2371; J2405; J2704; J2765; J3010

== ENCOUNTER → 2024-08-02 06:50 | Outpatient (BNV) | payer MEDICAID, SELFPAY | PROVIDERS: PCP Nurse Practitioner Primary Care; Visit Provider Neurological Surgery | DX: M25.78 Osteophyte, vertebrae (principal); R13.10 Dysphagia, unspecified | CPT/HCPCS: 22110; 99499 ==

== ENCOUNTER 2024-08-27 13:21 | Outpatient (AMB) | payer MEDICAID, SELFPAY ==
--- NOTE | 2024-08-27 13:23 | HO.SPINEOV ---
Intake Visit Reasons: 1st post op Intake Note: Ms. Myers is here today for her 1st post-op appointment. Product Marketing Engineer Required: Yes Product Marketing Engineer Services: Product Marketing Engineer Present Allergies No Known Allergies Allergy (Verified 07/27/24 11:35) Assessment & Plan Assessment & Plan (1) History of cervical corpectomy: Code(s): Z90.89 - Acquired absence of other organs Category: Surgical Plan Procedure: C4-5 partial corpectomy Joelle comes in today for her 1st postoperative visit. She reports she is very satisfied with the surgery and feels much better than she did pre-operatively. To recap she was initially evaluated in our office for swallowing difficulties. She had an anterior osteophyte that was irritating the esophagus. She reports she is up walking around and completing the majority of her ADLs. She still reports mild pain in her posterior neck which she is able to treat successfully with Tylenol. No new neurological deficits. Patient is able to ambulate well, rises from a seated position without difficulty. Incision site is closed, well healing, with no signs of drainage. We will follow-up with the patient in 6 weeks for their 2nd postoperative visit. At that time we will get x-rays to review with the patient. Jose J Guy MD,PhD [facility] [place] [facility] Orders: Orders XR cervical spine 4V Today Z98.1 - Arthrodesis status Coding Level of Care Code Global (67948) Diagnoses History of cervical corpectomy Z90.89
== END 2024-08-27 14:03 | disposition home or self-care (01) ==
PROVIDERS: PCP Nurse Practitioner Primary Care; Visit Provider Physician Assistant
DX: Z90.89 Acquired absence of other organs (principal)
CPT/HCPCS: 99024

== ENCOUNTER 2024-08-27 13:21 | Outpatient (REF) | payer MEDICAID, SELFPAY | END 2024-08-27 13:22 | disposition home or self-care (01) | LOC: HO.HOSX 13:21 | PROVIDERS: PCP Nurse Practitioner Primary Care; Visit Provider Physician Assistant | DX: Z98.1 Arthrodesis status (principal); Z90.89 Acquired absence of other organs | CPT/HCPCS: 99212 ==

== ENCOUNTER 2024-09-12 13:56 | Outpatient (AMB) | payer MEDICAID, SELFPAY ==
[2024-09-12 14:02] VITALS: BP 108/70; PULSE 86; O2SAT 96; BMI 28.4
--- NOTE | 2024-09-12 14:02 | A.OFFVIS_ITS ---
Vital Signs 09/12/24 14:02 Height 5 ft 1 in Weight 150 lb 5.684 oz BMI 28.4 BP 108/70 Blood Pressure Location Rt brachial Position Sitting Pulse 86 Pulse Source Pulse Oximeter Pulse Oximetry (%) 96 Oxygen Delivery Method Room Air Intake Visit Reasons: Discuss EGD and Colonoscopy Intake Note: PRESCRIPTIONS LAST GENERATED metoclopramide HCl 5 mg tablet?(Reglan)?5 mg PO QIDACHS 120 tabs 3RF Anjel,07/17/24 11:32 (Transmitted) Relevant Flags or Indicators ? Requires Concierge Manager? Poli Lai presents in office today for a scheduled ~ 1 mos FUV. Pt last saw February Anjel for an urgent need FUV. CC; No recent labs, diagnostics orders placed. ?Meds as listed above. Relevant GI Sx as reported per pt? Attempted intake w/ pt via [email or web address] concrete stone finishing supervisor. Pt denied use of [email or web address] services and [place] in [place] concrete stone finishing supervisor [place] [facility] Unable to adequately room pt while waiting for concrete stone finishing supervisor services arrival. ? Hx of any recent surgeries? None Concierge Manager Required: Yes Concierge Manager Services: Concierge Manager Present Concierge Manager [place] [facility] [place]. Information Interpreted: non-clinical & clinical Accompanied by: Self / Same As Patient Allergies No Known Allergies Allergy (Verified 10/04/24 21:32) HPI HPI Discuss EGD and Colonoscopy: Details: LAST VISIT: Elevated LFTs GERD (gastroesophageal reflux disease) Osteophyte of cervical spine Dysphagia Postprandial abdominal bloating Postprandial epigastric pain Plan Continue current treatment with Nexium and famotidine. Patient reports that she is feeling better. Her symptoms of dysphagia improved, however she continues to have neck pain and trouble swallowing solid food. Hold off endoscopy and colonoscopy. Patient will return in 3 months, sooner on as needed basis. Follow- up appointment with neurosurgery on the of this month. MRI done and will be reviewed by the provider then. Decision will be made if patient will require surgery or not. Patient is agreeable to this plan and verbalizes understanding of instructions. She was given the opportunity to ask questions and all questions answered. ? Thank you for allowing me to participate in her care Medications Refilled esomeprazole magnesium (Nexium) 40 mg PO DAILY 90 caps 2RF K21.9 famotidine 40 mg PO BEDTIME 90 tabs 3RF K21.9 TODAY'S VISIT Patient is here today for follow-up and to discuss going for colonoscopy. Patient had her spine surgery in July. Patient reports that she is feeling better, however she is having frequent migraines. PCP referred her for CT scan, however patient states that she has not receive a phone call yet. Patient reports that she will still have occasional dysphagia and dyspepsia without odynophagia. Occasional acid reflux after meals. Patient denies melena, hematochezia, unintentional weight loss or ribbon like stools. Reglan is helping however we discussed about taking it for a long period of time. Avoiding culprit or changing the medication from Ozempic back to Trulicity. Patient's blood sugars are not well controlled, however patient's diet has not been great either. She is not eating low fat low sugar diet. Patient was encou raged to lose weight as well. We will discuss sending her for upper endoscopy and colonoscopy. 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 Mother Hx of colon cancer, stage I Hx of diabetes insipidus Social History Household Members: None Housing: Apartment Are you a primary pediatric critical care nurse to a significant other at home: No Do you presently have visiting nurse or other home services: Yes (INSPECTING ENGINEER in the morning 1 hour) Alcohol intake: former Patient Tobacco Use Status: Former Tobacco user Tobacco use type: Cigarette Years Smoked: (onset 19yo, 1ppd x 42yrs, 40pyh - quit 2021) Advance Directives: No Advance Directives Information Provided: No Review of Systems Const Denies weight gain and Denies weight loss ENT Reports no additional complaints, Reports dysphagia (Occasional) and Denies odynophagia Card Reports no additional complaints Resp Reports no additional complaints GI Denies abdominal pain, Denies belching, Denies melena, Reports bloating, Denies change in bowel habits, Reports dysphagia (Occasional), Denies excessive flatus, Denies dyspepsia, Denies heartburn, Denies diarrhea, Denies loose stools, Denies nausea, Denies odynophagia and Denies vomiting Reports no additional complaints Musc Reports no additional complaints Neuro Reports no additional complaints Psych Reports no additional complaints Endo Reports no additional complaints Physical Exam Vital Signs: Last Vital Signs Pulse 86 09/12/24 14:02 BP 108/70 09/12/24 14:02 Pulse Ox 96 09/12/24 14:02 Oxygen Delivery Method Room Air 09/12/24 14:02 BMI result Body Mass Index 28.4 Const General: healthy appearing, no acute distress and well developed Nutritional Appearance: obese Orientation/consciousness: patient oriented x3 Resp Effort & Inspection: normal respiratory effort, able to speak in complete sentences, no tracheal deviation and symmetric chest movement Auscultation: clear to auscultation bilaterally Cardio Rate: regular rate GI Inspection: Yes normal to inspection, No distended and Yes obesity Palpation (GI): Soft to palpation, not firm, nontender and No hepatosplenomegaly present Auscultation: normal bowel sounds General: Yes no CVA tenderness Back/Spine/Pelvis Back: no CVA tenderness Skin General skin exam: elasticity normal, turgor normal and dry skin Neuro General: patient oriented x3 Psych Appearance: grossly normal Mental Status: mental status grossly normal Assessment & Plan Assessment & Plan (1) Gastroparesis: Comment: secondary to ozempic use but shortages are preventing the use of Trulicity which is better toerated by the patient. Code(s): K31.84 - Gastroparesis Category: Medical (2) GERD (gastroesophageal reflux disease): Code(s): K21.9 - Gastro-esophageal reflux disease without esophagitis Category: Medical Qualifiers: Esophagitis presence: esophagitis presence not specified Qualified Code(s): K21.9 - Gastro-esophageal reflux disease without esophagitis (3) Constipation: Code(s): K59.00 - Constipation, unspecified Category: Medical Qualifiers: Constipation type: chronic idiopathic constipation Qualified Code(s): K59.04 - Chronic idiopathic constipation (4) Elevated LFTs: Code(s): R79.89 - Other specified abnormal findings of blood chemistry Category: Medical Plan Continue Linzess as ordered. We will book upper endoscopy and colonoscopy. We may do GES to rule out true gastroparesis to avoid patient taking Reglan. She is on so many different medications we did talk to about polypharmacy. We talked about trying to control her blood sugars with food. Message sent to surgical schedulers to book the procedure for her. Patient reports that she did had a quite successful neurosurgery end of July. Her trouble of swallowing has improved, however she still occasionally will have trouble swallowing. Continue Nexium in the morning and famotidine at bedtime. Patient was encouraged to avoid dietary triggers and late night snacking. Staying upright for minimum 3 hours after meals discussed with patient. Patient will follow-up in 3 months, sooner on as needed basis. She is agreeable to this plan and verbalizes understanding of instructions. She was given the opportunity to ask questions and all questions answered. Thank you for allowing me to participate in her care Orders: Orders CT head/brain wo/w IV con 09/03/24 R51.9 - Headache, unspecified, R42 - Dizziness and giddiness Medications: New polyethylene glycol 3350 (Miralax) As directed by gastroenterology department at [facility] 238 grams PO ONCE 238 grams 0RF Z12.11 - Encounter for screening for malignant neoplasm of colon bisacodyl (Dulcolax (bisacodyl)) take 4 tabs at noon the day before your colonoscopy 20 mg (4 x 5 mg) PO ONCE 4 tabs 0RF 1 day Z12.11 - Encounter for screening for malignant neoplasm of colon Coding Level of Care Code Est Pt Level 4 (98600) Complex EM visit Add On G2211 Diagnoses Gastroparesis K31.84 Gastroesophageal reflux disease, unspecified whether esophagitis present K21.9 Esophagitis presence: esophagitis presence not specified Chronic idiopathic constipation K59.04 Constipation type: chronic idiopathic constipation Elevated LFTs R79.89 Time Spent (min) 35 Comment 20 minutes spent with patient and additional 15 minutes spent reviewing her records
== END 2024-09-12 15:02 | disposition home or self-care (01) ==
LOC: HO.HGI 13:56
PROVIDERS: PCP Nurse Practitioner Primary Care; Visit Provider Nurse Practitioner Family
DX: K31.84 Gastroparesis (principal); K21.9 Gastro-esophageal reflux disease without esophagitis; K59.04 Chronic idiopathic constipation; R79.89 Other specified abnormal findings of blood chemistry
CPT/HCPCS: 99214

== ENCOUNTER → 2024-09-12 13:56 | Outpatient (BNVA) | payer MEDICAID, SELFPAY | PROVIDERS: PCP Nurse Practitioner Primary Care; Visit Provider Nurse Practitioner Family | DX: K21.9 Gastro-esophageal reflux disease without esophagitis (principal); K31.84 Gastroparesis; K59.04 Chronic idiopathic constipation; R10.13 Epigastric pain; R79.89 Other specified abnormal findings of blood chemistry | CPT/HCPCS: 99212 ==

== ENCOUNTER 2024-09-17 14:39 | Emergency (ER) | payer MEDICAID, SELFPAY ==
--- NOTE | ~2024-09-17 | XR_ITS ---
EXAMINATION: XR CHEST CLINICAL INFORMATION: dizziness COMPARISON: CT chest 05/30/2024, chest radiograph 06/16/2017 TECHNIQUE: AP view of the chest was obtained. FINDINGS: The lungs are adequately expanded. Linear opacity in the right lateral lung is favored to represent platelike atelectasis. Chronic blunting of the lateral right costophrenic angle, as before. No focal consolidation, significant pleural effusion, pulmonary edema or pneumothorax. The cardiomediastinal silhouette is within normal limits for technique and unchanged. Mild aortic arch calcifications are seen. No acute osseous abnormality. XR/XR chest 1V IMPRESSION: 1. No acute pulmonary disease. 2. Linear opacity in the right lateral lung is favored to represent platelike atelectasis. Electronically signed by: Nahed Neumann DO 09/17/2024 04:45 PM EST
[2024-09-17 14:43] VITALS: BP 136/85; PULSE 90; O2SAT 96
[2024-09-17 14:53] VITALS: BP 119/69; PULSE 84; RESP 16; TEMP 38.1; O2SAT 97; BMI 29.0
--- NOTE | 2024-09-17 15:02 | PC.NURSE ---
Pt.'s POC = 572
[2024-09-17 15:04] LABS: Glucose, Whole Blood 574 mg/dL (60-115)
[2024-09-17 15:19] LABS: MANUAL DIFF FLAG NO
[2024-09-17 15:20] LABS: Basophils Percent Auto 0.6 % (0-2); Eosinophils Absolute Auto 0.1 X10*3/uL (0.0-0.4); Eosinophils Percent Auto 1.1 % (0-4); Hematocrit 35.2 % (37.0-47.0); Hemoglobin 12.6 g/dl (12.0-16.0); Imm Gran Abs Auto 0.03 X10*3/uL (0.00-0.03); Imm Gran Pct Auto 0.4 % (0.0-0.4); Lymphocytes Absolute Auto 1.9 X10*3/uL (1.2-4.9); Lymphocytes Percent Auto 27.6 % (20-40); Mean Corpuscular HGB Conc 35.8 g/dl (31.0-35.0); Mean Corpuscular Hemoglobin 29.7 pg (27.0-33.0); Mean Platelet Volume 11.7 fL (9.4-12.3); Monocytes Absolute Auto 0.5 X10*3/uL (0.1-1.2); Monocytes Percent Auto 7.5 % (2-11); Neutrophils Absolute Auto 4.4 x10*3/uL (2.0-8.3); Neutrophils Percent Auto 62.8 % (45-73); Platelet Count 241 X10*3/uL (160-400); Red Blood Count 4.24 X10*6/uL (4.20-5.50); Red Cell Distribution Width 11.9 % (11.0-16.0)
[2024-09-17 16:15] LABS: Influenza A PCR NEGATIVE (Negative); Influenza B PCR NEGATIVE (Negative); Resp Syncy Virus RNA Qual PCR NEGATIVE (Negative); SARS COV2 PCR INHOUSE NEGATIVE (Negative)
[2024-09-17 16:44] LABS: Alanine Aminotransferase 17 U/L (0-31); Albumin Level 4.4 g/dL (3.5-5.0); Alkaline Phosphatase 133 U/L (39-117); Anion Gap 16 (12-20); Aspartate Amino Transferase 18 U/L (5-31); Bilirubin Total 0.3 mg/dL (0.0-1.0); Blood Urea Nitrogen 26 mg/dL (9-16); Calcium 10.3 mg/dL (8.4-10.2); Carbon Dioxide 22 mmol/L (22-29); Chloride 101 mmol/L (96-108); Creatinine Clr Calc Pharmacy 31.7; Estimated Glomerular Filt Rate 32; Glucose Random 541 mg/dL (60-115); Magnesium 1.6 mg/dL (1.6-2.6); Potassium 4.6 mmol/L (3.3-5.1); Sodium 134 mmol/L (135-145); Total Protein 7.2 g/dL (6.5-8.0)
--- NOTE | 2024-09-17 16:59 | ED.GENADULT ---
HPI - General Adult General Chief complaint: General Medical Stated complaint: High Blood Sugar per EMS Time Seen by Provider: 09/17/24 16:44 Source: patient and EMS Mode of arrival: EMS Limitations: no limitations History of Present Illness ED Provider: Dr. Kta Garvey HPI narrative: Patient comes to the emergency room complaining of high blood sugar for couple of days. Patient states that she uses Trulicity and Lantus 46 units at night. Also 16 units of Humalog only once a day before her largest meal which is late in the afternoon. Patient states that she has been checking her glucose for couple of days, they have all been ?high?. Patient complaining of somewhat blurred vision, no chest pain or shortness of breath. Also the patient complaining of a mild headache. Related Data Home Medications ?Medication ?Instructions ?Recorded ?Confirmed albuterol sulfate 90 mcg/actuation 2 puff inhalation Q4-6H PRN 08/26/20 07/18/24 aerosol inhaler (ProAir HFA) Shortness Of Breath Or Wheezing aspirin 81 mg tablet 81 mg PO DAILY 08/26/20 07/18/24 blood-glucose meter (FreeStyle 08/26/20 12/08/23 Lite Meter kit) budesonide-formoterol HFA 160 2 puff inhalation BID 08/26/20 07/18/24 mcg-4.5 mcg/actuation aerosol inhaler fenofibrate micronized 134 mg 134 mg PO DAILY 08/26/20 07/18/24 capsule furosemide 20 mg tablet 20 mg PO DAILY PRN Edema 08/26/20 07/18/24 sertraline 100 mg tablet (Zoloft) 200 mg PO BEDTIME 08/26/20 07/18/24 apixaban 2.5 mg tablet (Eliquis) 2.5 mg PO 01/13/22 12/08/23 acarbose 100 mg tablet 100 mg PO TID 06/08/23 07/18/24 cholecalciferol (vitamin D3) 50 50 mcg PO QAM 03/09/24 07/18/24 mcg (2,000 unit) tablet atorvastatin 40 mg tablet 40 mg PO BEDTIME 05/09/24 07/18/24 bupropion HCl 100 mg tablet,12 hr 100 mg PO QAM 05/09/24 07/18/24 sustained-release cetirizine 10 mg tablet 10 mg PO QAM 05/09/24 07/18/24 lorazepam 0.5 mg tablet 0.5 mg PO BID PRN Anxiety 05/09/24 07/18/24 sennosides 8.6 mg-docusate sodium 2 tab PO DAILY PRN constipation 05/09/24 07/18/24 50 mg tablet (Stimulant Laxative Plus) tiotropium bromide 18 mcg capsule 1 cap inhalation DAILY 05/09/24 07/18/24 with inhalation device (Spiriva with HandiHaler) zolpidem 10 mg tablet 10 mg PO BEDTIME PRN Insomnia 05/09/24 07/18/24 gabapentin 300 mg capsule 600 mg PO TID 07/04/24 07/18/24 semaglutide 0.25 mg or 0.5 mg (2 0.25 mg subcut .QTUESDAY 07/04/24 07/19/24 mg/3 mL) subcutaneous pen injector (Ozempic) acetaminophen 500 mg tablet 1,000 mg PO Q6H PRN Pain 07/18/24 07/18/24 albuterol sulfate 2.5 mg/3 mL 1 inhalation Q6H PRN wheezing 07/18/24 (0.083 %) solution for nebulization fluticasone propionate 50 1 spray intranasal BID 07/18/24 07/18/24 mcg/actuation nasal spray,suspension metformin 500 mg tablet,extended 500 mg PO BID 07/18/24 07/18/24 release 24 hr metoprolol succinate 25 mg 25 mg PO BID 07/18/24 07/18/24 tablet,extended release 24 hr (Toprol XL) nitroglycerin 0.4 mg sublingual 0.4 mg sublingual Q5M PRN Chest 07/18/24 07/18/24 tablet Pain esomeprazole magnesium 40 mg 40 mg PO DAILY 07/19/24 07/19/24 capsule,delayed release lidocaine 5 % topical patch patch topical 09/12/24 Previous Rx's ?Medication ?Instructions ?Recorded alcohol swabs (Alcohol Pads) 1 pad topical .4 times a day 30 10/07/20 days #200 ea pen needle, diabetic 32 gauge x #150 ea 08/20/21 (BD Ultra-Fine Sienna Pen Needle) blood-glucose meter (FreeStyle #1 ea 08/21/21 [place] Lite kit) FreeStyle Lancets 28 gauge #300 ea 10/21/21 (lancets) blood sugar diagnostic (FreeStyle #300 ea 06/16/22 Lite Strips) insulin glargine 100 unit/mL (3 46 unit (0.46 mL) subcut QPM #15 mL 07/07/22 mL) subcutaneous pen (Lantus Solostar U-100 Insulin) insulin aspart U-100 100 unit/mL See Rx Instructions subcut TID #15 07/13/22 (3 mL) subcutaneous pen (Novolog mL FlexPen U-100 Insulin aspart) pioglitazone 15 mg tablet 15 mg PO DAILY #30 tabs 10/26/22 docusate sodium 100 mg capsule 100 mg PO DAILY Constipation #30 03/09/24 (Colace) caps esomeprazole magnesium 40 mg 40 mg PO DAILY #90 caps 05/09/24 capsule,delayed release (Nexium) famotidine 40 mg tablet 40 mg PO BEDTIME #90 tabs 05/09/24 metoclopramide HCl 5 mg tablet 5 mg PO QIDACHS #120 tabs 07/17/24 (Reglan) tramadol 50 mg tablet 50 mg PO Q8H PRN pain #20 tabs 08/08/24 bisacodyl 5 mg tablet,delayed 20 mg (4 x 5 mg) PO ONCE 1 day #4 09/12/24 release (Dulcolax (bisacodyl)) tabs polyethylene glycol 3350 17 238 g PO ONCE #238 grams 09/12/24 gram/dose oral powder (Miralax) Allergies Allergy/AdvReac Type Severity Reaction Status Date / Time No Known Allergies Allergy Verified 09/17/24 14:55 Review of Systems Review of Systems: Constitutional : No Weight loss, No Fever, No Chills, No Night Sweats, No Fatigue, No Malaise ENT/Mouth : No Hearing loss, No Ear Pain, No Nasal Congestion, No Sinus Pain, No Hoarseness, No sore throat, No Rhinorrhea, No Swallowing Difficulty Eyes: No Eye Pain, No Swelling, No Redness, No Foreign Body, No Discharge, No Vision Changes Cardiovascular : No Chest Pain, No SOB, No Dyspnea on Exertion, No Orthopnea, No Edema, No Palpitations Respiratory : No Cough, No Sputum, No Wheezing, No Smoke Exposure, No Dyspnea Gastrointestinal : No Nausea, No Vomiting, No Diarrhea, No Constipation, No abdominal Pain, No Hematochezia, No Melena Genitourinary : no irregular bleeding, No Dysuria, No Urinary Frequency, No Hematuria, No Urinary Incontinence, No Urgency, No Flank Pain, No Urinary Flow Changes, No Hesitancy Musculoskeletal : No joint pain, No Myalgias, No Joint Swelling Skin : No Skin Lesions, No rash Neuro : No Weakness, No Numbness, No Paresthesias, No Loss of Consciousness, No Dizziness, complaining of Headache Psych : No Anxiety/Panic, No Depression, No SI/HI/AH/VH, No Social Issues, Heme/Lymph: No Bruising, No Bleeding,No Lymphadenopathy Endocrine : Complaining of high blood sugar, per urine polydipsia, No Temperature Intolerance [facility] Past Medical History Medical History Asthma Depression Anxiety Dizziness Headache Hx pulmonary embolism (~2016) Personal history of nicotine dependence History of colon polyps Osteophyte of cervical spine Stented coronary artery (~2012) Elevated LFTs CAD (coronary artery disease) Dyslipidemia Hypertension Diabetic 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 in the morning 1 hour) Alcohol intake: former Patient Tobacco Use Status: Former Tobacco user Tobacco use type: Cigarette Years Smoked: (onset 19yo, 1ppd x 42yrs, 40pyh - quit 2021) Smoked in Last 30 Days: No Use of substances other than those prescribed or required for medical reasons: No Advance Directives: No Advance Directives Information Provided: No Do you have a plan to hurt others: No Plan Patient : No Physical Exam ED Vital Signs: Vital Signs - 24 hr 09/17/24 14:53 09/17/24 18:46 09/17/24 20:11 Temperature 100.5 F H 98 F 98.1 F Pulse Rate 84 65 71 Respiratory Rate 16 18 16 Blood Pressure 119/69 123/74 116/68 Pulse Oximetry 97 98 96 Oxygen Delivery Method Room Air Room Air Room Air BMI result Body Mass Index 29.0 Const Other: Appearance: Alert. Oriented X3. No acute distress. Eyes: Pupils equal, round and reactive to light. ENT: Pharynx normal. Neck: Normal inspection. Neck supple. No lymph nodes noted. No crepitus CVS: Normal heart rate and rhythm. Pulses normal. Normal S1 and S2 Respiratory: No respiratory distress. Breath sounds normal. No Wheezing. No rales Abdomen: Soft and nontender. No rigidity. No distention. Skin: Skin warm and dry. Normal skin color. Normal skin turgor. Extremities: No lower extremity edema. No Lacerations. No Rash Neuro: Oriented X 3. No motor deficit. No sensory deficit. Moving all extremities. No slurred speech. CN 2 through 12 grossly intact Psych: calm, cooperative, normal affect Course Course Course Narrative: Patient's glucose 441, patient receiving IV fluids, insulin 10 units IV Medications Administered Discontinued Medications Generic Name Dose Route Start Last Admin Trade Name Freq PRN Reason Stop Dose Admin Acetaminophen 975 mg 09/17/24 17:02 09/17/24 17:23 Acetaminophen 325 Mg Tablet PO 09/17/24 17:03 975 mg ONCE ONE Administration Sodium Chloride 1,000 mls @ 999 mls/hr 09/17/24 16:55 09/17/24 19:27 Ns IVCONT 09/17/24 17:55 Infused .Q1H1M ONE Infusion Insulin Human Regular 10 unit 09/17/24 16:55 09/17/24 17:21 Insulin Regular, Human 100 Unit/Ml 10 Ml Vial IVPUSH 09/17/24 16:56 10 unit ONCE ONE Administration Insulin Human Regular 5 unit 09/17/24 19:05 09/17/24 19:32 Insulin Regular, Human 100 Unit/Ml 10 Ml Vial IVPUSH 09/17/24 19:06 Not Given ONCE ONE Medical Decision Making Medical Decision Making [facility] Narrative: It was noted in patient's vitals are temperature is 100.5 degrees. Patient has no source of infection, denies hematuria or dysuria, no flank pain, no cough. We will rechecked the temperature -my interpretation of labs: Normal hematology, chemistry shows a creatinine of 1.62, which is new for the patient, glucose 541. Beta hydroxybutyrate negative, anion gap is closed After IV fluids and insulin we will recheck glucose and creatinine levels. -the headache resolved, blurry vision resolved -patient's glucose improved to 247, creatinine improved to 1.36. Patient instructed to increase her Lantus to 40 units at bedtime and have close follow-up with the primary care physician. Differential Diagnosis Differential Diagnoses: The differential diagnosis associated with the presentation includes (Hyperglycemia, DKA) Admission/Observation Consideration of admission/observation: Escalation of care including admission/observation considered (Given patient's elevated blood glucose, admission was considered) Lab Data [facility] Lab Attestation statement: I reviewed the patient's lab results. 09/17/24 15:13 09/17/24 19:41 Labs: Lab Results 09/17/24 09/17/24 09/17/24 Range/Units 15:01 15:13 15:28 WBC 7.0 (4.8-10.8) X10*3/uL RBC 4.24 (4.20-5.50) X10*6/uL Hgb 12.6 (12.0-16.0) g/dl Hct 35.2 L (37.0-47.0) % MCV 83.0 (80.0-98.0) fL MCH 29.7 (27.0-33.0) pg MCHC 35.8 H (31.0-35.0) g/dl RDW 11.9 (11.0-16.0) % Plt Count 241 (160-400) X10*3/uL MPV 11.7 (9.4-12.3) fL Immature Gran % (Auto) 0.4 (0.0-0.4) % Neut % (Auto) 62.8 (45-73) % Lymph % (Auto) 27.6 (20-40) % [place] % (Auto) 7.5 (2-11) % Eos % (Auto) 1.1 (0-4) % Baso % (Auto) 0.6 (0-2) % Lymph # (Auto) 1.9 (1.2-4.9) X10*3/uL [place] # (Auto) 0.5 (0.1-1.2) X10*3/uL Eos # (Auto) 0.1 (0.0-0.4) X10*3/uL Baso # (Auto) 0.0 (0.0-0.2) X10*3/uL Abs Immat Gran (auto) 0.03 (0.00-0.03) X10*3/uL Absolute Neuts (auto) 4.4 (2.0-8.3) x10*3/uL Absolute Nucleated RBC 0.000 (0.0-0.012) X10*3/uL Nucleated RBC % (auto) 0.0 (0.0-0.2) /100WBC Sodium (135-145) mmol/L Potassium (3.3-5.1) mmol/L Chloride (96-108) mmol/L Carbon Dioxide (22-29) mmol/L Anion Gap (12-20) BUN (9-16) mg/dL Creatinine (0.5-1.4) mg/dL Estim Creat Clear Calc Estimated GFR POC Glucose 574 H* (60-115) mg/dL Random Glucose (60-115) mg/dL Calcium (8.4-10.2) mg/dL Magnesium (1.6-2.6) mg/dL Total Bilirubin (0.0-1.0) mg/dL AST (5-31) U/L ALT (0-31) U/L Alkaline Phosphatase (39-117) U/L Total Protein (6.5-8.0) g/dL Albumin (3.5-5.0) g/dL Beta-Hydroxybutyrate (0.02-0.27) mmol/L Influenza Type A (PCR) NEGATIVE (Negative) Influenza Type B (PCR) NEGATIVE (Negative) RSV RNA Qual (PCR) NEGATIVE (Negative) SARS-CoV-2 RNA (RT-PCR) NEGATIVE (Negative) 09/17/24 09/17/24 09/17/24 Range/Units 15:55 18:00 19:26 WBC (4.8-10.8) X10*3/uL RBC (4.20-5.50) X10*6/uL Hgb (12.0-16.0) g/dl Hct (37.0-47.0) % MCV (80.0-98.0) fL MCH (27.0-33.0) pg MCHC (31.0-35.0) g/dl RDW (11.0-16.0) % Plt Count (160-400) X10*3/uL MPV (9.4-12.3) fL Immature Gran % (Auto) (0.0-0.4) % Neut % (Auto) (45-73) % Lymph % (Auto) (20-40) % [place] % (Auto) (2-11) % Eos % (Auto) (0-4) % Baso % (Auto) (0-2) % Lymph # (Auto) (1.2-4.9) X10*3/uL [place] # (Auto) (0.1-1.2) X10*3/uL Eos # (Auto) (0.0-0.4) X10*3/uL Baso # (Auto) (0.0-0.2) X10*3/uL Abs Immat Gran (auto) (0.00-0.03) X10*3/uL Absolute Neuts (auto) (2.0-8.3) x10*3/uL Absolute Nucleated RBC (0.0-0.012) X10*3/uL Nucleated RBC % (auto) (0.0-0.2) /100WBC Sodium 134 L (135-145) mmol/L Potassium 4.6 (3.3-5.1) mmol/L Chloride 101 (96-108) mmol/L Carbon Dioxide 22 (22-29) mmol/L Anion Gap 16 (12-20) BUN 26 H (9-16) mg/dL Creatinine 1.62 H (0.5-1.4) mg/dL Estim Creat Clear Calc 31.7 Estimated GFR 32 POC Glucose 344 H 223 H (60-115) mg/dL Random Glucose 541 H* (60-115) mg/dL Calcium 10.3 H (8.4-10.2) mg/dL Magnesium 1.6 (1.6-2.6) mg/dL Total Bilirubin 0.3 (0.0-1.0) mg/dL AST 18 (5-31) U/L ALT 17 (0-31) U/L Alkaline Phosphatase 133 H (39-117) U/L Total Protein 7.2 (6.5-8.0) g/dL Albumin 4.4 (3.5-5.0) g/dL Beta-Hydroxybutyrate 0.20 (0.02-0.27) mmol/L Influenza Type A (PCR) (Negative) Influenza Type B (PCR) (Negative) RSV RNA Qual (PCR) (Negative) SARS-CoV-2 RNA (RT-PCR) (Negative) 09/17/24 Range/Units 19:41 WBC (4.8-10.8) X10*3/uL RBC (4.20-5.50) X10*6/uL Hgb (12.0-16.0) g/dl Hct (37.0-47.0) % MCV (80.0-98.0) fL MCH (27.0-33.0) pg MCHC (31.0-35.0) g/dl RDW (11.0-16.0) % Plt Count (160-400) X10*3/uL MPV (9.4-12.3) fL Immature Gran % (Auto) (0.0-0.4) % Neut % (Auto) (45-73) % Lymph % (Auto) (20-40) % [place] % (Auto) (2-11) % Eos % (Auto) (0-4) % Baso % (Auto) (0-2) % Lymph # (Auto) (1.2-4.9) X10*3/uL [place] # (Auto) (0.1-1.2) X10*3/uL Eos # (Auto) (0.0-0.4) X10*3/uL Baso # (Auto) (0.0-0.2) X10*3/uL Abs Immat Gran (auto) (0.00-0.03) X10*3/uL Absolute Neuts (auto) (2.0-8.3) x10*3/uL Absolute Nucleated RBC (0.0-0.012) X10*3/uL Nucleated RBC % (auto) (0.0-0.2) /100WBC Sodium 140 (135-145) mmol/L Potassium 3.9 (3.3-5.1) mmol/L Chloride 107 (96-108) mmol/L Carbon Dioxide 22 (22-29) mmol/L Anion Gap 15 (12-20) BUN 22 H (9-16) mg/dL Creatinine 1.36 (0.5-1.4) mg/dL Estim Creat Clear Calc 37.7 Estimated GFR 39 POC Glucose (60-115) mg/dL Random Glucose 247 H (60-115) mg/dL Calcium 10.2 (8.4-10.2) mg/dL Magnesium (1.6-2.6) mg/dL Total Bilirubin (0.0-1.0) mg/dL AST (5-31) U/L ALT (0-31) U/L Alkaline Phosphatase (39-117) U/L Total Protein (6.5-8.0) g/dL Albumin (3.5-5.0) g/dL Beta-Hydroxybutyrate (0.02-0.27) mmol/L Influenza Type A (PCR) (Negative) Influenza Type B (PCR) (Negative) RSV RNA Qual (PCR) (Negative) SARS-CoV-2 RNA (RT-PCR) (Negative) Critical Care Time Critical Care Time Critical Care Time: Yes Total Critical Care Time: 45 Attestation: I have personally provided critical care time. Time includes review of lab data, radiology results, discussion with consultants, and monitoring for potential decompensation. Intervention performed as documented. Discharge Plan Discharge Clinical Impression: Acute hyperglycemia, SANDRINE (acute kidney injury), Headache Patient Disposition: Home, Self-Care Instructions: Acute Kidney Injury (DC), Acute Headache (DC), Diabetic Hyperglycemia (ED) Additional Instructions: Please increase your Lantus at bedtime to 40 units. Please follow-up with your primary care physician tomorrow. If you have any worsening or new symptoms, please return to the emergency room or call 911 Prescriptions: No Action alcohol swabs [Alcohol Pads] Pads, Medicated 1 pad topical .4 times a day 30 Days Qty: 200 6RF (DME) blood-glucose meter [FreeStyle [place] Lite] Kit See Rx Instructions .ROUTE .MEDSUPPLY Qty: 1 0RF Rx Instructions: To test bg 3x/day (DME) lancets [FreeStyle Lancets] 28 gauge [facility] MISCELLANEOUS Qty: 300 11RF Rx Instructions: 3 times a day (DME) FreeStyle Lite Strips Strip See Rx Instructions .ROUTE .MEDSUPPLY Qty: 300 2RF Rx Instructions: 4 times a day Lantus Solostar U-100 Insulin 100 unit/mL (3 mL) insulin pen 46 unit subcut QPM Qty: 15 5RF insulin aspart U-100 [Novolog FlexPen U-100 Insulin] 100 unit/mL (3 mL) insulin pen See Rx Instructions subcut TID Qty: 15 5RF Rx Instructions: 16units with largest meal of the day and 12 units for 2 other meals. subcutaneously 3 times a day; subcutaneously 3 times a day; pioglitazone 15 mg tablet 15 mg PO DAILY Qty: 30 0RF tramadol 50 mg tablet 50 mg PO Q8H PRN (Reason: pain) Qty: 20 0RF sertraline [Zoloft] 100 mg Tablet 200 mg PO BEDTIME Rx Instructions: take 2 tablets bid fenofibrate micronized 134 mg Capsule 134 mg PO DAILY aspirin 81 mg Tablet 81 mg PO DAILY furosemide 20 mg Tablet 20 mg PO DAILY PRN (Reason: Edema) albuterol sulfate [ProAir HFA] 90 mcg/actuation Hfa Aerosol Inhaler 2 puff INHALATION Q4-6H PRN (Reason: Shortness Of Breath Or Wheezing) budesonide-formoterol 160-4.5 mcg/actuation Hfa Aerosol Inhaler 2 puff INHALATION BID (DME) blood-glucose meter [FreeStyle Lite Meter] Kit MISCELLANEOUS Rx Instructions: use as directed TID albuterol sulfate 2.5 mg /3 mL (0.083 %) solution for nebulization 1 inhalation Q6H PRN (Reason: wheezing) acetaminophen 500 mg Tablet 1,000 mg PO Q6H PRN (Reason: Pain) nitroglycerin 0.4 mg Tablet, Sublingual 0.4 mg SUBLINGUAL Q5M PRN (Reason: Chest Pain) Rx Instructions: do not exceed 3 doses per episode metoprolol succinate [Toprol XL] 25 mg Tablet Extended Release 24 Hr 25 mg PO BID fluticasone propionate 50 mcg/actuation [place],Suspension 1 spray INTRANASAL BID Rx Instructions: administer into each nostril metformin 500 mg Tablet Extended Release 24 Hr 500 mg PO BID esomeprazole magnesium 40 mg capsule,delayed release(DR/EC) 40 mg PO DAILY (DME) pen needle, diabetic [BD Ultra-Fine [place]ienna Pen Needle] 32 gauge x 5/32 needle See Rx Instructions .ROUTE .MEDSUPPLY Qty: 150 11RF Rx Instructions: four times a day Eliquis 2.5 mg tablet 2.5 mg PO cholecalciferol (vitamin D3) 50 mcg (2,000 unit) tablet 50 mcg PO QAM docusate sodium [Colace] 100 mg capsule 100 mg PO DAILY Qty: 30 3RF gabapentin 300 mg capsule 600 mg PO TID Ozempic 0.25 mg or 0.5 mg (2 mg/3 mL) pen injector 0.25 mg subcut .QTUESDAY acarbose 100 mg tablet 100 mg PO TID bupropion HCl 100 mg tablet sustained-release 12 hr 100 mg PO QAM zolpidem 10 mg tablet 10 mg PO BEDTIME PRN (Reason: Insomnia) lorazepam 0.5 mg tablet 0.5 mg PO BID PRN (Reason: Anxiety) tiotropium bromide [Spiriva with HandiHaler] 18 mcg capsule, w/inhalation device 1 cap inhalation DAILY cetirizine 10 mg tablet 10 mg PO QAM atorvastatin 40 mg tablet 40 mg PO BEDTIME sennosides-docusate sodium [Stimulant Laxative Plus] 8.6-50 mg tablet 2 tab PO DAILY PRN (Reason: constipation) esomeprazole magnesium [Nexium] 40 mg capsule,delayed release(DR/EC) 40 mg PO DAILY Qty: 90 2RF famotidine 40 mg tablet 40 mg PO BEDTIME Qty: 90 3RF lidocaine 5 % adhesive patch,medicated topical bisacodyl [Dulcolax (bisacodyl)] 5 mg tablet,delayed release (DR/EC) 20 mg PO ONCE 1 Days Qty: 4 0RF Rx Instructions: take 4 tabs at noon the day before your colonoscopy polyethylene glycol 3350 [Miralax] 17 gram/dose powder 238 g PO ONCE Qty: 238 0RF Rx Instructions: As directed by gastroenterology department at [facility] metoclopramide HCl [Reglan] 5 mg tablet 5 mg PO QIDACHS Qty: 120 3RF Print Language: Romansh
[2024-09-17] MEDS: Insulin Regular, Human 100 UNIT/ML 10 ML VIAL 10 UNIT IVPUSH (17:21)
[2024-09-17] MEDS: Acetaminophen 325 MG TABLET 975 MG PO (17:23)
[2024-09-17] MEDS: 0.9 % Sodium Chloride 1,000 ML 999 ML IVCONT (17:23)
[2024-09-17 18:05] LABS: Glucose, Whole Blood 344 mg/dL (60-115)
[2024-09-17 18:46] VITALS: BP 123/74; PULSE 65; RESP 18; TEMP 36.6; O2SAT 98
[2024-09-17 19:30] LABS: Glucose, Whole Blood 223 mg/dL (60-115)
[2024-09-17 20:07] LABS: Anion Gap 15 (12-20); Blood Urea Nitrogen 22 mg/dL (9-16); Calcium 10.2 mg/dL (8.4-10.2); Carbon Dioxide 22 mmol/L (22-29); Chloride 107 mmol/L (96-108); Creatinine Clr Calc Pharmacy 37.7; Estimated Glomerular Filt Rate 39; Glucose Random 247 mg/dL (60-115); Potassium 3.9 mmol/L (3.3-5.1); Sodium 140 mmol/L (135-145)
[2024-09-17 20:11] VITALS: BP 116/68; PULSE 71; RESP 16; TEMP 36.7; O2SAT 96
[2024-09-17 20:20] VITALS: BP 116/68; PULSE 71; RESP 16; TEMP 36.7; O2SAT 96
== END 2024-09-17 20:28 | disposition home or self-care (01) ==
PROVIDERS: Physician Assistant Medical; Emergency Provider Emergency Medicine; PCP Nurse Practitioner Primary Care
DX: E11.65 Type 2 diabetes mellitus with hyperglycemia (principal); R51.9 Headache, unspecified; R11.0 Nausea; R42 Dizziness and giddiness; Z79.85 Long-term (current) use of injectable non-insulin antidiabetic drugs; Z79.899 Other long term (current) drug therapy; Z87.891 Personal history of nicotine dependence; Z03.818 Encounter for observation for suspected exposure to other biological agents ruled out
CPT/HCPCS: 0241U; 36415; 71045; 80048; 80053; 82010; 82947; 83735; 85025; 96361; 96374; 99284

== ENCOUNTER 2024-09-18 18:03 | Outpatient (REF) | payer MEDICAID, SELFPAY ==
[2024-09-19 02:49] LABS: CT PCR NOT DETECTED (Not Detect.); NG PCR NOT DETECTED (Not Detect.)
[2024-09-19 11:11] LABS: Bacterial Vaginosis PCR POSITIVE (Negative); Candida Group PCR DETECTED (Not Detect); Candida glab krusei PCR DETECTED (Not Detect); Trichomonas vaginalis PCR NOT DETECTED (Not Detect)
== END 2024-09-18 18:04 | disposition home or self-care (01) ==
LOC: HO.HHCLNP 18:03
PROVIDERS: Visit Provider Family Medicine
DX: N89.8 Other specified noninflammatory disorders of vagina (principal); N39.0 Urinary tract infection, site not specified
CPT/HCPCS: 0352U; 87086; 87491; 87591

== ENCOUNTER 2024-10-04 21:26 | Emergency (ER) | payer MEDICAID, SELFPAY ==
[2024-10-04 21:29] VITALS: BP 138/78; PULSE 96; RESP 18; TEMP 36.7; O2SAT 100; BMI 27.8
[2024-10-04 21:46] LABS: MANUAL DIFF FLAG NO
[2024-10-04 21:47] LABS: Basophils Percent Auto 0.4 % (0-2); Eosinophils Absolute Auto 0.1 X10*3/uL (0.0-0.4); Eosinophils Percent Auto 1.4 % (0-4); Hematocrit 35.4 % (37.0-47.0); Hemoglobin 12.5 g/dl (12.0-16.0); Imm Gran Abs Auto 0.01 X10*3/uL (0.00-0.03); Imm Gran Pct Auto 0.1 % (0.0-0.4); Lymphocytes Absolute Auto 2.4 X10*3/uL (1.2-4.9); Lymphocytes Percent Auto 33.2 % (20-40); Mean Corpuscular HGB Conc 35.3 g/dl (31.0-35.0); Mean Corpuscular Hemoglobin 29.3 pg (27.0-33.0); Mean Corpuscular Volume 83.1 fL (80.0-98.0); Mean Platelet Volume 11.2 fL (9.4-12.3); Monocytes Absolute Auto 0.6 X10*3/uL (0.1-1.2); Monocytes Percent Auto 7.6 % (2-11); Neutrophils Absolute Auto 4.1 x10*3/uL (2.0-8.3); Neutrophils Percent Auto 57.3 % (45-73); Platelet Count 277 X10*3/uL (160-400); Red Blood Count 4.26 X10*6/uL (4.20-5.50); Red Cell Distribution Width 12.2 % (11.0-16.0); White Blood Count 7.2 X10*3/uL (4.8-10.8)
[2024-10-04 21:47] LABS: Glucose, Whole Blood 495 mg/dL (60-115)
[2024-10-04 22:06] LABS: Alanine Aminotransferase 21 U/L (0-31); Albumin Level 4.5 g/dL (3.5-5.0); Alkaline Phosphatase 117 U/L (39-117); Anion Gap 18 (12-20); Aspartate Amino Transferase 18 U/L (5-31); Bilirubin Total 0.2 mg/dL (0.0-1.0); Blood Urea Nitrogen 23 mg/dL (9-16); Calcium 10.1 mg/dL (8.4-10.2); Carbon Dioxide 23 mmol/L (22-29); Chloride 99 mmol/L (96-108); Creatinine Clr Calc Pharmacy 21.3; Estimated Glomerular Filt Rate 21; Glucose Random 545 mg/dL (60-115); Potassium 4.5 mmol/L (3.3-5.1); Sodium 135 mmol/L (135-145); Total Protein 7.1 g/dL (6.5-8.0)
--- NOTE | 2024-10-04 22:48 | PC.NURSE ---
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 Pt had walked home. Pt encouraged to return despite feeling better. states she'll call for an ambulance if she doesn't feel well. Is aware that BG was 545
--- NOTE | 2024-10-04 22:48 | PC.NURSE ---
T/W called patient to treatment area, Pt no answer from W/R. Called personal phone and advised Pt to come back, patient stated I walked home, I checked my sugar and it is 415, I will call 911 if I feel worse . Pt LWBS.
[2024-10-04 23:15] LABS: Beta-Hydroxybutyrate 0.09 mmol/L (0.02-0.27)
== END 2024-10-04 22:49 | disposition left against medical advice (07) ==
PROVIDERS: Emergency Provider Internal Medicine; PCP Nurse Practitioner Primary Care
DX: E11.65 Type 2 diabetes mellitus with hyperglycemia (principal); Z53.21 Procedure and treatment not carried out due to patient leaving prior to being seen by health care provider
CPT/HCPCS: 36415; 80053; 82010; 82947; 85025; 99281; 99282

== ENCOUNTER 2024-10-09 13:04 | Outpatient (AMB) | payer MEDICAID, SELFPAY ==
--- NOTE | 2024-10-09 13:21 | HO.SPINEOV ---
Intake Visit Reasons: 2nd post op with Xrays Intake Note: Ms. Myers is here today for her 2nd post op visit. Process Safety Specialist Required: Yes Process Safety Specialist Name: Tablet Allergies No Known Allergies Allergy (Verified 10/09/24 13:36) Assessment & Plan Assessment & Plan (1) H/O cervical spine surgery: Code(s): Z98.890 - Other specified postprocedural states Category: Surgical Plan Process Safety Specialist #: [id number] Joelle is a pleasant 64 year old female who comes in today for her 2nd post-operative visit after having osteophyte removal near the esophagus due to swallowing difficulty. Overall she is doing very well since her surgery and is very happy with the procedure. She reports no issues with swallowing, no troubles with her upper extremities, and no neck pain. I answered all questions to the best of my ability. No new neurological deficits. The patient ambulates well and rises from a seated position without difficulty. Her anterior incision site is closed and well healed. There is no need for continued routine follow up with Joelle, she may be discharged as a patient. Jose J Guy MD,PhD [facility] Coding Level of Care Code Global (81402) Diagnoses H/O cervical spine surgery Z98.890
== END 2024-10-09 13:48 | disposition home or self-care (01) ==
PROVIDERS: PCP Nurse Practitioner Primary Care; Visit Provider Physician Assistant
DX: Z98.890 Other specified postprocedural states (principal)
CPT/HCPCS: 99024

== ENCOUNTER 2024-10-09 13:04 | Outpatient (REF) | payer MEDICAID, SELFPAY | END 2024-10-09 13:05 | disposition home or self-care (01) | LOC: HO.HOSX 13:04 | PROVIDERS: PCP Nurse Practitioner Primary Care; Visit Provider Physician Assistant | DX: Z98.1 Arthrodesis status (principal) | CPT/HCPCS: 72050; 99212 ==

== ENCOUNTER 2024-10-09 13:51 | Emergency (ER) | payer MEDICAID, SELFPAY ==
[2024-10-09 14:14] VITALS: BP 129/76; PULSE 90; RESP 18; TEMP 37.1; O2SAT 98; BMI 26.3
--- NOTE | 2024-10-09 14:18 | ED_ITS ---
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 Other than BS going up and down she has no other complaints. No pain, n/v/d. She notes she takes lasix every day. Cr at 10/03 was 2.36 today it is 1.64 that has been her baseline since the start of the month. She ranges 1.3 to 1.6 MD complaint: abnormal lab Initial visit (ago): day(s) (10/04) Initial visit for: other (hyperglycemia) Returns today for: called because of abnormal lab/test Description of abnormal result: Cr Symptoms since prior visit: improved Context: called for abnormal lab result Associated symptoms: none Related Data Home Medications ?Medication ?Instructions ?Recorded ?Confirmed albuterol sulfate 90 mcg/actuation 2 puff inhalation Q4-6H PRN 08/26/20 07/18/24 aerosol inhaler (ProAir HFA) Shortness Of Breath Or Wheezing aspirin 81 mg tablet 81 mg PO DAILY 08/26/20 07/18/24 blood-glucose meter (FreeStyle 08/26/20 12/08/23 Lite Meter kit) budesonide-formoterol HFA 160 2 puff inhalation BID 08/26/20 07/18/24 mcg-4.5 mcg/actuation aerosol inhaler fenofibrate micronized 134 mg 134 mg PO DAILY 08/26/20 07/18/24 capsule furosemide 20 mg tablet 20 mg PO DAILY PRN Edema 08/26/20 07/18/24 sertraline 100 mg tablet (Zoloft) 200 mg PO BEDTIME 08/26/20 07/18/24 apixaban 2.5 mg tablet (Eliquis) 2.5 mg PO 01/13/22 12/08/23 acarbose 100 mg tablet 100 mg PO TID 06/08/23 07/18/24 cholecalciferol (vitamin D3) 50 50 mcg PO QAM 03/09/24 07/18/24 mcg (2,000 unit) tablet atorvastatin 40 mg tablet 40 mg PO BEDTIME 05/09/24 07/18/24 bupropion HCl 100 mg tablet,12 hr 100 mg PO QAM 05/09/24 07/18/24 sustained-release cetirizine 10 mg tablet 10 mg PO QAM 05/09/24 07/18/24 lorazepam 0.5 mg tablet 0.5 mg PO BID PRN Anxiety 05/09/24 07/18/24 sennosides 8.6 mg-docusate sodium 2 tab PO DAILY PRN constipation 05/09/24 07/18/24 50 mg tablet (Stimulant Laxative Plus) tiotropium bromide 18 mcg capsule 1 cap inhalation DAILY 05/09/24 07/18/24 with inhalation device (Spiriva with HandiHaler) zolpidem 10 mg tablet 10 mg PO BEDTIME PRN Insomnia 05/09/24 07/18/24 gabapentin 300 mg capsule 600 mg PO TID 07/04/24 07/18/24 semaglutide 0.25 mg or 0.5 mg (2 0.25 mg subcut .QTUESDAY 07/04/24 07/19/24 mg/3 mL) subcutaneous pen injector (Ozempic) acetaminophen 500 mg tablet 1,000 mg PO Q6H PRN Pain 07/18/24 07/18/24 albuterol sulfate 2.5 mg/3 mL 1 inhalation Q6H PRN wheezing 07/18/24 (0.083 %) solution for nebulization fluticasone propionate 50 1 spray intranasal BID 07/18/24 07/18/24 mcg/actuation nasal spray,suspension metformin 500 mg tablet,extended 500 mg PO BID 07/18/24 07/18/24 release 24 hr metoprolol succinate 25 mg 25 mg PO BID 07/18/24 07/18/24 tablet,extended release 24 hr (Toprol XL) nitroglycerin 0.4 mg sublingual 0.4 mg sublingual Q5M PRN Chest 07/18/24 07/18/24 tablet Pain esomeprazole magnesium 40 mg 40 mg PO DAILY 07/19/24 07/19/24 capsule,delayed release lidocaine 5 % topical patch patch topical 09/12/24 Previous Rx's ?Medication ?Instructions ?Recorded alcohol swabs (Alcohol Pads) 1 pad topical .4 times a day 30 10/07/20 days #200 ea pen needle, diabetic 32 gauge x #150 ea 08/20/21 (BD Ultra-Fine Sienna Pen Needle) blood-glucose meter (FreeStyle #1 ea 08/21/21 [place] Lite kit) FreeStyle Lancets 28 gauge #300 ea 10/21/21 (lancets) blood sugar diagnostic (FreeStyle #300 ea 06/16/22 Lite Strips) insulin glargine 100 unit/mL (3 46 unit (0.46 mL) subcut QPM #15 mL 07/07/22 mL) subcutaneous pen (Lantus Solostar U-100 Insulin) insulin aspart U-100 100 unit/mL See Rx Instructions subcut TID #15 07/13/22 (3 mL) subcutaneous pen (Novolog mL FlexPen U-100 Insulin aspart) pioglitazone 15 mg tablet 15 mg PO DAILY #30 tabs 10/26/22 docusate sodium 100 mg capsule 100 mg PO DAILY Constipation #30 03/09/24 (Colace) caps esomeprazole magnesium 40 mg 40 mg PO DAILY #90 caps 05/09/24 capsule,delayed release (Nexium) famotidine 40 mg tablet 40 mg PO BEDTIME #90 tabs 05/09/24 metoclopramide HCl 5 mg tablet 5 mg PO QIDACHS #120 tabs 07/17/24 (Reglan) tramadol 50 mg tablet 50 mg PO Q8H PRN pain #20 tabs 08/08/24 bisacodyl 5 mg tablet,delayed 20 mg (4 x 5 mg) PO ONCE 1 day #4 09/12/24 release (Dulcolax (bisacodyl)) tabs polyethylene glycol 3350 17 238 g PO ONCE #238 grams 09/12/24 gram/dose oral powder (Miralax) magnesium oxide 400 mg PO DAILY #7 tabs 10/09/24 Allergies Allergy/AdvReac Type Severity Reaction Status Date / Time No Known Allergies Allergy Verified 10/09/24 14:18 Review of Systems 2 Review of Systems: Constitutional : No Fever, No Chills, No Fatigue ENT/Mouth : No sore throat, No Rhinorrhea Eyes: No Eye Pain, No Swelling, No Redness Cardiovascular : No Chest Pain, No SOB, No Dyspnea on Exertion Respiratory : No Cough, No Sputum Gastrointestinal : No Nausea, No Vomiting, No Diarrhea, No abdominal Pain Genitourinary : No Dysuria, No Urinary Frequency, No Hematuria, Musculoskeletal : No joint pain, No Myalgias, No Joint Swelling Skin : No Skin Lesions, No rash Neuro : No Weakness, No Numbness, No Dizziness, no Headache All other systems reviewed and are negative PMFSH Past Medical History Attestation statement: The following information was validated with the patient. Source: old records reviewed Medical History Asthma Depression Anxiety Dizziness Headache Hx pulmonary embolism (~2016) Personal history of nicotine dependence History of colon polyps Osteophyte of cervical spine Stented coronary artery (~2012) Elevated LFTs CAD (coronary artery disease) Dyslipidemia Hypertension Diabetic polyneuropathy associated with type 2 diabetes mellitus prison (current) use of insulin Diabetes type 2, uncontrolled (~2011) GERD (gastroesophageal reflux disease) Constipation Personal history of PE (pulmonary embolism) (~2013) Current use of anticoagulant therapy (~2013) Surgical History History of colonoscopy History of esophagogastroduodenoscopy (EGD) History of heart artery stent Family History Family History Father No problems noted. 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) Alcohol intake: never Patient Tobacco Use Status: Former Tobacco user Tobacco use type: Cigarette Years Smoked: (onset 19yo, 1ppd x 42yrs, 40pyh - quit 2021) Smoked in Last 30 Days: No Use of substances other than those prescribed or required for medical reasons: No Advance Directives: No Advance Directives Information Provided: No Physical Exam 2 Vital Signs: Vital Signs: Last Vital Signs Temp 97.8 F 10/09/24 17:12 Pulse 80 10/09/24 18:33 Resp 16 10/09/24 18:33 BP 112/66 10/09/24 18:33 Pulse Ox 97 10/09/24 18:33 O2 Del Method Room Air 10/09/24 18:33 BMI result Body Mass Index 26.3 Appearance: Alert. Oriented X3. No acute distress. Eyes: Pupils equal, round and reactive to light. ENT: Pharynx normal. Neck: Normal inspection. Neck supple. CVS: Normal heart rate and rhythm. Pulses normal. Respiratory: No respiratory distress. Breath sounds normal. Abdomen: Soft and nontender. Skin: Skin warm and dry. Normal skin color. Normal skin turgor. Extremities: No lower extremity edema. No calf ttp Neuro: Oriented X 3. No motor deficit. No sensory deficit. Course Course Course Narrative: This is a rapid medical exam performed by Daniella Cao PA-C. The patient is a 64-year-old female with a history of diabetes, hypertension, hyperlipidemia, known coronary artery disease who presents with hyperglycemia. She was instructed by her primary care provider to come here for further assessment. Associated low back pain with dysuria. Increased thirst and urination, have been ongoing. Patient states she does use insulin, and uses it as directed. Patient is well in appearance, hemodynamically stable. We will be screening basic labs, beta hydroxy, venous blood gas and a urinalysis. The patient is able to return to the waiting room pending her full medical assessment. Reevaluation(s) Reevaluation #1: refrigeration engineering teacher called the patient and let her know to fill the magnesium Rx we sent in for her Medical Decision Making Medical Decision Making MDM Narrative: 64 yo female with PMH of CAD, HLD, DM, CAD s/p stent, HTN, GERD, on eliquis here with c/o being called for abnormal kidney function so she came back - she has no new complaints her Cr is trending down at this time plan wouuld be to hold her lasix 3 days and repeat with her PCP she feels comfortable with this - no signs of infection, no pain to suggest stone or obstruction. Improving SANDRINE Differential Diagnosis Differential Diagnoses: The differential diagnosis associated with the presentation includes dehydration, hyperglycemia Admission/Observation Consideration of admission/observation: Escalation of care including admission/observation considered Cr just slightly above her baseline will hold lasix x 3 days and recheck with her PCP this week Th or F Lab Data MDM Lab Attestation statement: I reviewed the patient's lab results. 10/09/24 15:02 10/09/24 15:02 Labs: Lab Results 10/09/24 10/09/24 10/09/24 Range/Units 14:16 15:02 15:04 WBC 7.3 (4.8-10.8) X10*3/uL RBC 4.36 (4.20-5.50) X10*6/uL Hgb 13.0 (12.0-16.0) g/dl Hct 37.5 (37.0-47.0) % MCV 86.0 (80.0-98.0) fL MCH 29.8 (27.0-33.0) pg MCHC 34.7 (31.0-35.0) g/dl RDW 12.1 (11.0-16.0) % Plt Count 277 (160-400) X10*3/uL MPV 11.3 (9.4-12.3) fL Immature Gran % (Auto) 0.3 (0.0-0.4) % Neut % (Auto) 60.5 (45-73) % Lymph % (Auto) 30.2 (20-40) % [place] % (Auto) 7.0 (2-11) % Eos % (Auto) 1.5 (0-4) % Baso % (Auto) 0.5 (0-2) % Lymph # (Auto) 2.2 (1.2-4.9) X10*3/uL [place] # (Auto) 0.5 (0.1-1.2) X10*3/uL Eos # (Auto) 0.1 (0.0-0.4) X10*3/uL Baso # (Auto) 0.0 (0.0-0.2) X10*3/uL Abs Immat Gran (auto) 0.02 (0.00-0.03) X10*3/uL Absolute Neuts (auto) 4.4 (2.0-8.3) x10*3/uL Absolute Nucleated RBC 0.000 (0.0-0.012) X10*3/uL Nucleated RBC % (auto) 0.0 (0.0-0.2) /100WBC VBG pH (7.32-7.43) VBG pCO2 mmHg VBG pO2 mmHg VBG HCO3 (22-26) mmol/L VBG O2 Saturation % VBG Base Excess mmol/L Sodium 136 (135-145) mmol/L Potassium 5.1 (3.3-5.1) mmol/L Chloride 104 (96-108) mmol/L Carbon Dioxide 25 (22-29) mmol/L Anion Gap 12 (12-20) BUN 16 (9-16) mg/dL Creatinine 1.64 H (0.5-1.4) mg/dL Estim Creat Clear Calc 32.3 Estimated GFR 32 POC Glucose 359 H* (60-115) mg/dL Random Glucose 376 H* (60-115) mg/dL Calcium 10.5 H (8.4-10.2) mg/dL Magnesium 1.5 L (1.6-2.6) mg/dL Total Bilirubin 0.3 (0.0-1.0) mg/dL AST 20 (5-31) U/L ALT 18 (0-31) U/L Alkaline Phosphatase 98 (39-117) U/L Total Protein 7.1 (6.5-8.0) g/dL Albumin 4.5 (3.5-5.0) g/dL Lipase 42 (8-78) U/L Beta-Hydroxybutyrate 0.10 (0.02-0.27) mmol/L Urine Color Yellow Urine Appearance Clear Urine pH 5.0 (5.0-9.0) Ur Specific [place] 1.015 (1.005-1.025) Urine Protein Negative (Neg-Trace) mg/dL Urine Glucose (UA) >=1000 H (Negative) mg/dL Urine Ketones Negative (Negative) mg/dL Urine Blood Negative (Negative) Urine Nitrite Negative (Negative) Ur Leukocyte Esterase Small (1+) H (Negative) Urine RBC 0-2 (0-2) /HPF Urine WBC 6-10 H (0-5) /HPF Ur Squamous Epith Cells 3-5 (0-2) /HPF Urine Bacteria None Seen (None Seen) Hyaline Casts 3-5 (0-2) /LPF 10/09/24 10/09/24 Range/Units 15:08 18:04 WBC (4.8-10.8) X10*3/uL RBC (4.20-5.50) X10*6/uL Hgb (12.0-16.0) g/dl Hct (37.0-47.0) % MCV (80.0-98.0) fL MCH (27.0-33.0) pg MCHC (31.0-35.0) g/dl RDW (11.0-16.0) % Plt Count (160-400) X10*3/uL MPV (9.4-12.3) fL Immature Gran % (Auto) (0.0-0.4) % Neut % (Auto) (45-73) % Lymph % (Auto) (20-40) % [place] % (Auto) (2-11) % Eos % (Auto) (0-4) % Baso % (Auto) (0-2) % Lymph # (Auto) (1.2-4.9) X10*3/uL [place] # (Auto) (0.1-1.2) X10*3/uL Eos # (Auto) (0.0-0.4) X10*3/uL Baso # (Auto) (0.0-0.2) X10*3/uL Abs Immat Gran (auto) (0.00-0.03) X10*3/uL Absolute Neuts (auto) (2.0-8.3) x10*3/uL Absolute Nucleated RBC (0.0-0.012) X10*3/uL Nucleated RBC % (auto) (0.0-0.2) /100WBC VBG pH 7.36 (7.32-7.43) VBG pCO2 65 mmHg VBG pO2 34 mmHg VBG HCO3 37 H (22-26) mmol/L VBG O2 Saturation 54.0 % VBG Base Excess 9.7 mmol/L Sodium (135-145) mmol/L Potassium (3.3-5.1) mmol/L Chloride (96-108) mmol/L Carbon Dioxide (22-29) mmol/L Anion Gap (12-20) BUN (9-16) mg/dL Creatinine (0.5-1.4) mg/dL Estim Creat Clear Calc Estimated GFR POC Glucose 289 H (60-115) mg/dL Random Glucose (60-115) mg/dL Calcium (8.4-10.2) mg/dL Magnesium (1.6-2.6) mg/dL Total Bilirubin (0.0-1.0) mg/dL AST (5-31) U/L ALT (0-31) U/L Alkaline Phosphatase (39-117) U/L Total Protein (6.5-8.0) g/dL Albumin (3.5-5.0) g/dL Lipase (8-78) U/L Beta-Hydroxybutyrate (0.02-0.27) mmol/L Urine Color Urine Appearance Urine pH (5.0-9.0) Ur Specific [place] (1.005-1.025) Urine Protein (Neg-Trace) mg/dL Urine Glucose (UA) (Negative) mg/dL Urine Ketones (Negative) mg/dL Urine Blood (Negative) Urine Nitrite (Negative) Ur Leukocyte Esterase (Negative) Urine RBC (0-2) /HPF Urine WBC (0-5) /HPF Ur Squamous Epith Cells (0-2) /HPF Urine Bacteria (None Seen) Hyaline Casts (0-2) /LPF External Record Review External record reviewed: Office record and Prior outpatient labs Discharge Plan Discharge Clinical Impression: Acute dehydration Patient Disposition: Home, Self-Care Instructions: Dehydration (ED) Additional Instructions: PLEASE RETURN FOR ANY WORSENING SYMPTOMS OR CONCERNS HOLD LASIX FOR 3 DAYS REPEAT KIDNEY FUNCTION WITH DOCTOR ON TUESDAY OR TUESDAY STAY HYDRATED Prescriptions: New magnesium oxide 400 mg magnesium tablet 400 mg PO DAILY Qty: 7 0RF No Action alcohol swabs [Alcohol Pads] Pads, Medicated 1 pad topical .4 times a day 30 Days Qty: 200 6RF (DME) blood-glucose meter [FreeStyle [place] Lite] Kit See Rx Instructions .ROUTE .MEDSUPPLY Qty: 1 0RF Rx Instructions: To test bg 3x/day (DME) lancets [FreeStyle Lancets] 28 gauge misc MISCELLANEOUS Qty: 300 11RF Rx Instructions: 3 times a day (DME) FreeStyle Lite Strips Strip See Rx Instructions .ROUTE .MEDSUPPLY Qty: 300 2RF Rx Instructions: 4 times a day Lantus Solostar U-100 Insulin 100 unit/mL (3 mL) insulin pen 46 unit subcut QPM Qty: 15 5RF insulin aspart U-100 [Novolog FlexPen U-100 Insulin] 100 unit/mL (3 mL) insulin pen See Rx Instructions subcut TID Qty: 15 5RF Rx Instructions: 16units with largest meal of the day and 12 units for 2 other meals. subcutaneously 3 times a day; subcutaneously 3 times a day; pioglitazone 15 mg tablet 15 mg PO DAILY Qty: 30 0RF tramadol 50 mg tablet 50 mg PO Q8H PRN (Reason: pain) Qty: 20 0RF sertraline [Zoloft] 100 mg Tablet 200 mg PO BEDTIME Rx Instructions: take 2 tablets bid fenofibrate micronized 134 mg Capsule 134 mg PO DAILY aspirin 81 mg Tablet 81 mg PO DAILY furosemide 20 mg Tablet 20 mg PO DAILY PRN (Reason: Edema) albuterol sulfate [ProAir HFA] 90 mcg/actuation Hfa Aerosol Inhaler 2 puff INHALATION Q4-6H PRN (Reason: Shortness Of Breath Or Wheezing) budesonide-formoterol 160-4.5 mcg/actuation Hfa Aerosol Inhaler 2 puff INHALATION BID (DME) blood-glucose meter [FreeStyle Lite Meter] Kit MISCELLANEOUS Rx Instructions: use as directed TID albuterol sulfate 2.5 mg /3 mL (0.083 %) solution for nebulization 1 inhalation Q6H PRN (Reason: wheezing) acetaminophen 500 mg Tablet 1,000 mg PO Q6H PRN (Reason: Pain) nitroglycerin 0.4 mg Tablet, Sublingual 0.4 mg SUBLINGUAL Q5M PRN (Reason: Chest Pain) Rx Instructions: do not exceed 3 doses per episode metoprolol succinate [Toprol XL] 25 mg Tablet Extended Release 24 Hr 25 mg PO BID fluticasone propionate 50 mcg/actuation [place],Suspension 1 spray INTRANASAL BID Rx Instructions: administer into each nostril metformin 500 mg Tablet Extended Release 24 Hr 500 mg PO BID esomeprazole magnesium 40 mg capsule,delayed release(DR/EC) 40 mg PO DAILY (DME) pen needle, diabetic [BD Ultra-Fine Sienna Pen Needle] 32 gauge x 5/32 needle See Rx Instructions .ROUTE .MEDSUPPLY Qty: 150 11RF Rx Instructions: four times a day Eliquis 2.5 mg tablet 2.5 mg PO cholecalciferol (vitamin D3) 50 mcg (2,000 unit) tablet 50 mcg PO QAM docusate sodium [Colace] 100 mg capsule 100 mg PO DAILY Qty: 30 3RF gabapentin 300 mg capsule 600 mg PO TID Ozempic 0.25 mg or 0.5 mg (2 mg/3 mL) pen injector 0.25 mg subcut .QTUESDAY acarbose 100 mg tablet 100 mg PO TID bupropion HCl 100 mg tablet sustained-release 12 hr 100 mg PO QAM zolpidem 10 mg tablet 10 mg PO BEDTIME PRN (Reason: Insomnia) lorazepam 0.5 mg tablet 0.5 mg PO BID PRN (Reason: Anxiety) tiotropium bromide [Spiriva with HandiHaler] 18 mcg capsule, w/inhalation device 1 cap inhalation DAILY cetirizine 10 mg tablet 10 mg PO QAM atorvastatin 40 mg tablet 40 mg PO BEDTIME sennosides-docusate sodium [Stimulant Laxative Plus] 8.6-50 mg tablet 2 tab PO DAILY PRN (Reason: constipation) esomeprazole magnesium [Nexium] 40 mg capsule,delayed release(DR/EC) 40 mg PO DAILY Qty: 90 2RF famotidine 40 mg tablet 40 mg PO BEDTIME Qty: 90 3RF lidocaine 5 % adhesive patch,medicated topical bisacodyl [Dulcolax (bisacodyl)] 5 mg tablet,delayed release (DR/EC) 20 mg PO ONCE 1 Days Qty: 4 0RF Rx Instructions: take 4 tabs at noon the day before your colonoscopy polyethylene glycol 3350 [Miralax] 17 gram/dose powder 238 g PO ONCE Qty: 238 0RF Rx Instructions: As directed by gastroenterology department at [facility] metoclopramide HCl [Reglan] 5 mg tablet 5 mg PO QIDACHS Qty: 120 3RF Print Language: Ukrainian
[2024-10-09 14:30] LABS: Glucose, Whole Blood 359 mg/dL (60-115)
[2024-10-09 15:09] LABS: MANUAL DIFF FLAG NO
[2024-10-09 15:13] LABS: Basophils Percent Auto 0.5 % (0-2); Eosinophils Absolute Auto 0.1 X10*3/uL (0.0-0.4); Eosinophils Percent Auto 1.5 % (0-4); Hematocrit 37.5 % (37.0-47.0); Imm Gran Abs Auto 0.02 X10*3/uL (0.00-0.03); Imm Gran Pct Auto 0.3 % (0.0-0.4); Lymphocytes Absolute Auto 2.2 X10*3/uL (1.2-4.9); Lymphocytes Percent Auto 30.2 % (20-40); Mean Corpuscular HGB Conc 34.7 g/dl (31.0-35.0); Mean Corpuscular Hemoglobin 29.8 pg (27.0-33.0); Mean Platelet Volume 11.3 fL (9.4-12.3); Monocytes Absolute Auto 0.5 X10*3/uL (0.1-1.2); Neutrophils Absolute Auto 4.4 x10*3/uL (2.0-8.3); Neutrophils Percent Auto 60.5 % (45-73); Platelet Count 277 X10*3/uL (160-400); Red Blood Count 4.36 X10*6/uL (4.20-5.50); Red Cell Distribution Width 12.1 % (11.0-16.0); White Blood Count 7.3 X10*3/uL (4.8-10.8)
[2024-10-09 15:15] LABS: Appearance Urine Clear; Color Urine Yellow; Glucose Urine UA >=1000 mg/dL (Negative); Leukocyte Esterase Urine Small (1+) (Negative); Nitrite Urine Negative (Negative); Specific Gravity - Urine 1.015 (1.005-1.025); UMIC TRIGGER UACC YES; Urine Blood Negative (Negative); Urine Ketones Negative (Negative); Urine Protein Negative (Neg-Trace)
[2024-10-09 15:17] LABS: Bacteria Urine None Seen (None Seen); RBC Urine 0-2 /HPF (0-2); UACC Culture Trigger YES
[2024-10-09 15:19] LABS: Venous Blood Gas Refer to POC result
[2024-10-09 15:19] LABS: VBG Base Excess 9.7 mmol/L; VBG HCO3 37 mmol/L (22-26); VBG pCO2 65 mmHg; VBG pH 7.36 (7.32-7.43); VBG pO2 34 mmHg
[2024-10-09 15:51] LABS: Alanine Aminotransferase 18 U/L (0-31); Albumin Level 4.5 g/dL (3.5-5.0); Alkaline Phosphatase 98 U/L (39-117); Anion Gap 12 (12-20); Aspartate Amino Transferase 20 U/L (5-31); Bilirubin Total 0.3 mg/dL (0.0-1.0); Blood Urea Nitrogen 16 mg/dL (9-16); Calcium 10.5 mg/dL (8.4-10.2); Carbon Dioxide 25 mmol/L (22-29); Chloride 104 mmol/L (96-108); Creatinine Clr Calc Pharmacy 32.3; Estimated Glomerular Filt Rate 32; Lipase 42 U/L (8-78); Magnesium 1.5 mg/dL (1.6-2.6); Potassium 5.1 mmol/L (3.3-5.1); Sodium 136 mmol/L (135-145); Total Protein 7.1 g/dL (6.5-8.0)
[2024-10-09 16:22] LABS: Glucose Random 376 mg/dL (60-115)
[2024-10-09 17:12] VITALS: BP 138/86; PULSE 76; RESP 16; TEMP 36.6; O2SAT 100
[2024-10-09 18:07] LABS: Glucose, Whole Blood 289 mg/dL (60-115)
[2024-10-09 18:33] VITALS: BP 112/66; PULSE 80; RESP 16; O2SAT 97
[2024-10-09 19:27] VITALS: BP 112/66; PULSE 80; RESP 16; TEMP 36.6; O2SAT 97
== END 2024-10-09 19:24 | disposition home or self-care (01) ==
PROVIDERS: Physician Assistant Medical; Emergency Provider Emergency Medicine; PCP Nurse Practitioner Primary Care
DX: E86.0 Dehydration (principal); E11.9 Type 2 diabetes mellitus without complications; I25.10 Atherosclerotic heart disease of native coronary artery without angina pectoris; I10 Essential (primary) hypertension; Z79.4 Long term (current) use of insulin; Z79.899 Other long term (current) drug therapy; Z79.01 Long term (current) use of anticoagulants; Z87.891 Personal history of nicotine dependence
CPT/HCPCS: 36415; 80053; 81001; 82010; 82803; 82947; 83690; 83735; 85025; 87086; 99284

== ENCOUNTER 2024-10-12 09:50 | Outpatient (REF) | payer MEDICAID, SELFPAY ==
[2024-10-12 11:54] LABS: Creatinine Urine 41.64 mg/dL; Microalbum/Creatinine Ratio Ur 14.4 ug/mg cr (<30)
[2024-10-12 12:11] LABS: Anion Gap 12 (12-20); Blood Urea Nitrogen 19 mg/dL (9-16); Calcium 11.2 mg/dL (8.4-10.2); Carbon Dioxide 27 mmol/L (22-29); Chloride 102 mmol/L (96-108); Estimated Glomerular Filt Rate 40; Glucose Random 390 mg/dL (60-115); Potassium 4.2 mmol/L (3.3-5.1); Sodium 137 mmol/L (135-145)
== END 2024-10-12 09:51 | disposition home or self-care (01) ==
LOC: HO.HHCL 09:50
PROVIDERS: Visit Provider Nurse Practitioner Primary Care
DX: N17.9 Acute kidney failure, unspecified (principal); E11.69 Type 2 diabetes mellitus with other specified complication; E78.5 Hyperlipidemia, unspecified
CPT/HCPCS: 36415; 70450; 80048; 82043; 82570

== ENCOUNTER 2024-10-12 12:55 | Outpatient (REF) | payer MEDICAID, SELFPAY ==
--- NOTE | ~2024-10-12 | CT_ITS ---
EXAMINATION: CT HEAD WITHOUT CONTRAST CLINICAL INFORMATION: Chronic daily headache. Dizziness. COMPARISON: None available. TECHNIQUE: Contiguous axial imaging was performed from the skull base to vertex without intravenous administration of contrast. This CT examination was performed using dose optimization techniques as appropriate, variously including the following: *Automated exposure control. *Adjustment of mA and/or kV according to patient size (this includes techniques or standardized protocols for targeted exams where dose is matched to indication/reason for exam; i.e. extremities or head). *Use of iterative reconstruction technique. DLP: 615 mGy-cm FINDINGS: There is no evidence of acute intracranial hemorrhage or edematous territorial infarction. [place]-white matter differentiation is preserved. Scattered and partially confluent hypoattenuation in the periventricular and deep white matter are consistent with moderate microangiopathy. Proportional prominence of the ventricles and sulcal spaces without evidence of obstructive hydrocephalus. Mild expansion of the sella turcica with partial flattening of the pituitary gland. The suprasellar cistern remains widely patent. Normal positioning of the cerebellar tonsils. No abnormal mass effect or midline shift. No extra-axial fluid collections. Calcific atherosclerotic disease of the intracranial internal carotid and vertebral arteries. No hyperdense vessel sign. No acute soft tissue or osseous abnormalities. Moderate mucosal thickening of the left maxillary sinus. Mild mucosal thickening of the remaining paranasal sinuses. The mastoid air cells and middle ear cavities are clear. Moderate degenerative arthropathy of the left greater than right temporomandibular joints. CT/CT head/brain wo IV con IMPRESSION: 1. No evidence of acute intracranial hemorrhage or edematous territorial infarction. 2. Moderate underlying microangiopathy and generalized cerebral volume loss. 3. Partially visualized moderate left maxillary sinus disease. Electronically signed by: Javier Gonzalez DO 11/21/2024 02:25 AM EST
== END 2024-10-12 12:56 | disposition home or self-care (01) ==
LOC: HO.CT 12:55
PROVIDERS: PCP Nurse Practitioner Primary Care; Visit Provider Nurse Practitioner Primary Care
DX: R51.9 Headache, unspecified (principal)
CPT/HCPCS: 70450

== ENCOUNTER → 2024-12-12 13:38 | Outpatient (BNVA) | payer MEDICAID, SELFPAY | PROVIDERS: PCP Nurse Practitioner Primary Care; Visit Provider Internal Medicine | DX: I25.10 Atherosclerotic heart disease of native coronary artery without angina pectoris (principal); I65.23 Occlusion and stenosis of bilateral carotid arteries; E11.65 Type 2 diabetes mellitus with hyperglycemia; I10 Essential (primary) hypertension; E78.5 Hyperlipidemia, unspecified; Z87.891 Personal history of nicotine dependence; Z95.5 Presence of coronary angioplasty implant and graft | CPT/HCPCS: 99212 ==

== ENCOUNTER 2024-12-17 06:46 | Outpatient (REF) | payer MEDICAID, SELFPAY ==
--- OUTSIDE RECORDS SUMMARY | 2024-12-17 06:48 | XMS_ITS | Encounter Summary ---
Author Organization [email or web address] Address [address] [place] [id number] Care Team Providers Care Training Associate Name Role Phone Sepideh Hopkins ANP Primary Care Provider Vaishali Minor PharmD Unavailable [phone] Encounter Details Date Type Department Care Team (Latest Contact Info) Description 07/23/2022 Abstract [facility], Provider, DDS Social History Tobacco Use Types Packs/Day Years Used Date Smoking Tobacco: Never Assessed Comments Unknown Sex and Gender Information Value Date Recorded Sex Assigned at Female 09/06/2022 10:17 AM EDT Legal Sex Female 10:17 AM EDT Gender Identity Choose not to disclose 10:17 AM EDT Sexual Orientation Choose not to disclose 2021 10:17 AM EDT documented as of this encounter Plan of Treatment Upcoming Encounters Date Type Department Care Team (Late st Contact Info) Description 01/01/2025 2:30 PM EST Office Visit [facility] [address] [place] [address] Juarez Damon, DDS [address] [place] [address] 01/08/2025 11:00 AM EST Medication Management [facility] [address] [place] [address] Vaishali Minor, PharmD [address] [place] [address] 02/19/2025 1:00 PM EDT Office Visit [facility] [address] [place] [address] Sepideh Hopkins ANP [address] [place] [address] 05/20/2025 1:00 PM EDT Office Visit [facility] [address] [place] [address] Linsey Dawkins documented as of this encounter Visit Diagnoses Not on filedocumented in this encounter Care Teams Training Associate Relationship Specialty Start Date End Date Sepideh Hopkins ANP [address] [place] [address] PCP - General Family Medicine 07/07/20 Vaishali Minor PharmD [address] [place] [id number] Pharmacist Internal Medicine 10/29/24 documented as of this encounter
--- OUTSIDE RECORDS SUMMARY | 2024-12-17 06:48 | XMS_ITS | Encounter Summary ---
Author Organization [employer] Address [address] [facility] 7t [place] [address] Care Team Providers Care Commissioned Defence Force Officer Name Role Phone Sepideh Hopkins Primary Care Provider [phone] Vaishali Minor PharmD Unavailable [phone] Reason for Visit * Reason Comments Med Refill Encounter Details Date Type Department Care Team ([facility] st Contact Info) Description 12/14/2024 Refill [facility] MEDICINE [address] [place], [place] [phone] Sepideh Hopkins ANP [address] [place], [place] [phone] Social History Tobacco Use Types Packs/Day Years Used Date Smoking Tobacco: Former Cigarettes Smokeless Tobacco: Never Alcohol Use Standard Drinks/Week Comments Never 0 (1 standard drink = 0.6 oz pur e alcohol) Depression Answer Date Recorded Patient Health Questionnaire-9 Score 5 11/23/2024 Patient Health Questionnaire-9 Score 5 11/23/2024 Last PHQ-9: Questionnaire Data Not on file 0 11/23/2024 Housing Stability Answer Date Recorded What is your housing situation today? I have kb peace 11/18/[address] you li ve. Do you have problems with any of the following? None of the above 11/18/2023 Food Insecurity Answer Date Recorded Within the past 12 months, y ou worried that your food would run out before you got money to buy more: Never True 11/18/2023 Within the past 12 months,th e food you bought just didn't last and you didn't have enough money to get more: Never True 10/2024 Transportation Answer Date Recorded In the past 12 months, has l ack of transportation kept you from medical appts, meetings, work or from getting things needed for daily living? Yes, it has kept me from non-medical meetings, work, or getting things that I need 10/10/2024 Utilities Answer Date Recorded In the past 12 months, has t he electric, gas, oil or water company threatened to shut off services in your home? No 11/18/2023 Depression Answer Date Recorded Patient Health Questionnaire-2 Score 3 11/23/2024 Internet Access Answer Date Recorded Internet Access Q1 Yes 10/10/2024 Internet Access Q2 Not on file 10/10/2024 Comments Unknown Sex and Gender Information Value [...] Description 01/01/2025 2:30 PM EST Office Visit [facility] ADULT DENTAL [address] [place] [address] Juarez Damon DDS [address] [place] [address] 01/08/2025 11:00 AM EST Medication Management [facility] MEDICINE [address] [place] [address] Vaishali Minor, PharmD [address] [place] [address] 02/19/2025 1:00 PM EDT Office Visit [facility] MEDICINE [address] [place] [address] Sepideh Hopkins, JAVI [address] [place] [address] 05/20/2025 1:00 PM EDT Office Visit [facility] ADULT DENTAL [address] [place] [address] Linsey Dawkins documented as of this encounter Visit Diagnoses Not on filedocumented in this encounter Additional Health Concerns Assessment Noted Time PHQ-9 Depression Total Score: 5 11/23/19 25 1:05 PM EST documented as of this encounter Care Teams Commissioned Defence Force Officer Relationship Specialty Start Date End Date Sepideh Hopkins ANP [address] [place] [address] PCP - General Family Medicine 07/07/20 Vaishali Minor PharmD [address] [place] [address] Pharmacist Internal Medicine 10/29/24 documented as of this encounter
--- OUTSIDE RECORDS SUMMARY | 2024-12-17 06:48 | XMS_ITS | Encounter Summary ---
Author Organization [employer] Address [address] [facility] 7t [place] [address] Care Team Providers Care Talent Consultant Name Role Phone Sepideh Hopkins Primary Care Provider [phone] Vaishali Minor PharmD Unavailable [phone] Reason for Visit * Reason Onset Date Comments Durable Medical Equipment 12/13/2024 Shower chair Encounter Details Date Type Department Care Team ([facility] st Contact Info) Description 12/13/2024 Telephone [facility] MEDICINE [address] [place], [place] [phone] Sepideh Hopkins ANP [address] [place] [address] Durable Medical Equipment (Shower chair) Social History Tobacco Use Types Packs/Day Years [...] AM EDT documented as of this encounter Miscellaneous Notes * Telephone Encounter - Ale Gill - 12/13/2024 11:37 AM EST DME RX for Shower chair generated and placed on providers desk for signature. * Telephone Encounter - Ale Gill - 12/13/2024 11:37 AM EST ----- Message from Sepideh Hopkins sent at 12/11/2024 4:11 PM EST ----- Please generate Rx for shower chair, dx dizziness R42 documented in this encounter Plan of Treatment Upcoming Encounters Date Type Department Care Team (Late st Contact Info) Description 01/01/2025 2:30 PM EST Office Visit [facility] ADULT DENTAL [address] [place] [address] Juarez Damon DDS [address] [place] [address] 01/08/2025 11:00 AM EST Medication Management [facility] MEDICINE [address] [place] [address] Vaishali Minor PharmD [address] [place] [address] 02/19/2025 1:00 PM EDT Office Visit [facility] MEDICINE [address] [place] [address] Sepideh Hopkins ANP [address] [place] [address] 05/20/2025 1:00 PM EDT Office Visit [facility] ADULT DENTAL [address] [place] [address] Linsey Dawkins documented as of this encounter Visit Diagnoses Not on filedocumented in this encounter Additional Health Concerns Assessment Noted Time PHQ-9 Depression Total Score: 5 11/23/19 25 1:05 PM EST documented as of this encounter Care Teams Talent Consultant Relationship Specialty Start Date End Date Sepideh Hopkins ANP [address] [place] [address] PCP - General Family Medicine 07/07/20 Vaishali Minor, Leonidas [address] [place] [address] Pharmacist Internal Medicine 10/29/24 documented as of this encounter
--- OUTSIDE RECORDS SUMMARY | 2024-12-17 06:48 | XMS_ITS | Encounter Summary ---
Author Organization [employer] Address 75 [facility] 7t [place] [address] Care Team Providers Care Automatic Tire Tester Name Role Phone Sepideh Hopkins Primary Care Provider [phone] Vaishali Minor PharmD Unavailable [phone] Reason for Visit * Reason Comments Med Refill Encounter Details Date Type Department Care Team ([facility] st Contact Info) Description 12/13/2024 Refill [facility] MEDICINE [address] [place], [place] [phone] Sepideh Hopkins ANP 230 [place], [place] [phone] Type 2 diabetes mellitus with hyperlipidemia ([facility]/HCC) ([facility]) Social History Tobacco Use Types Packs/Day Years [...] Description 01/01/2025 2:30 PM EST Office Visit [facility] ADULT DENTAL [address] [place] [address] Juarez Damon DDS [address] [place] [address] 01/08/2025 11:00 AM EST Medication Management [facility] MEDICINE [address] [place] [address] Vaishali Minor, PharmD [address] [place] [address] 02/19/2025 1:00 PM EDT Office Visit [facility] MEDICINE [address] [place] [address] Sepideh Hopkins ANP 230 [place] [address] 05/20/2025 1:00 PM EDT Office Visit [facility] ADULT DENTAL [address] [place] [address] Linsey Dawkins documented as of this encounter Visit Diagnoses Diagnosis Type 2 diabetes mellitus with hyperlipidemia (CMS/HCC) (CMS/HCC) documented in this encounter Additional Health Concerns Assessment Noted Time PHQ-9 Depression Total Score: 5 11/23/19 25 1:05 PM EST documented as of this encounter Care Teams Automatic Tire Tester Relationship Specialty Start Date End Date Sepideh Hopkins ANP 230 [place] [address] PCP - General Family Medicine 07/07/20 Vaishali Minor PharmD 230 [place] [address] Pharmacist Internal Medicine 10/29/24 documented as of this encounter
--- OUTSIDE RECORDS SUMMARY | 2024-12-17 06:48 | XMS_ITS | Encounter Summary ---
Author Organization [employer] Address [address] [facility] 7t [place] [address] Care Team Providers Care Medical Or Surgical Instrument Maker Name Role Phone Sepideh Hopkins Primary Care Provider [phone] Vaishali Minor PharmD Unavailable [phone] Reason for Visit * Reason Comments Care Coordination Outreach Encounter Details Date Type Department Care Team (Latest Contact Info) Description 12/14/2024 Patient Outreach [facility] [address] [place], [place] [phone] Sepideh Hopkins ANP [address] [place] [address] Care Coordination (Outreach) Social History Tobacco Use Types Packs/Day Years [...] AM EDT documented as of this encounter Progress Notes * Xena Mckeon - 12/14/2024 11:02 AM EST CHW Xena Mckeon placed outbound call to patient for follow up call on SDOH needs. No answer at this time. LVM introducing herself from [facility] CM Department. Requested call back. CHW reinforced direct contact information or CM for any additional questions or concerns and extended clinic hours on Mondays and Wednesdays, and Walk-In Urgent Care Located in [facility]. Patient provided with after-hours line for [facility], , which offer night timetriage service and option to transfer to occupational analyst provider if needed. CHW will attempt another follow up call within 10 days. documented in this encounter Plan of Treatment Upcoming Encounters Date Type Department Care Team (Late st Contact Info) Description 01/01/2025 2:30 PM EST Office Visit [facility] ADULT DENTAL 230 [place] [address] Juarez Damon DDS 230 [place] [address] 01/08/2025 11:00 AM EST Medication Management [facility] MEDICINE [address] [place] [address] Vaishali Minor PharmD [address] [place] [address] 02/19/2025 1:00 PM EDT Office Visit [facility] MEDICINE [address] [place] [address] Sepideh Hopkins ANP [address] [place] [address] 05/20/2025 1:00 PM EDT Office Visit [facility] ADULT DENTAL [address] [place] [address] [phone] Linsey Dawkins documented as of this encounter Visit Diagnoses Not on filedocumented in this encounter Additional Health Concerns Assessment Noted Time PHQ-9 Depression Total Score: 5 11/23/19 25 1:05 PM EST documented as of this encounter Care Teams Medical Or Surgical Instrument Maker Relationship Specialty Start Date End Date Sepideh Hopkins ANP [address] [place] [address] PCP - General Family Medicine 07/07/20 Vaishali Minor, Leonidas [address] [place] [address] Pharmacist Internal Medicine 10/29/24 documented as of this encounter
--- OUTSIDE RECORDS SUMMARY | 2024-12-17 06:48 | XMS_ITS | Encounter Summary ---
Author Organization [employer] Address 75 [facility] 7t [place] [address] Care Team Providers Care Hat Ironer Name Role Phone SandeepeSpideh JAVI Primary Care Provider [phone] Vaishali Minor PharmD Unavailable [phone] Encounter Details Date Type Department Care Team (Late st Contact Info) Description 12/10/2024 9:00 AM EST Immunization [facility] MEDICINE 230 [place] [address] Nano Baxter LPN Encounter for immunization (Primary Dx) Social History Tobacco Use Types Packs/Day Years [...] as of this encounter Progress Notes * Nano Baxter LPN - 12/10/2024 9:00 AM EST Subjective Patient ID: Joelle Myers is a 64 y.o. adult who presents Pt here for PCV 20, pneumococcal conjugate, vaccine. Pt reporting and record indicate no contraindications to vaccination. Pt advised that they could experience pain/redness/swelling @ injection site with a potential to experience head ache, loss of appetite, fever, joint pain, chills following vaccination. Pt states understanding and agrees to vaccination. documented in this encounter Plan of Treatment Upcoming Encounters Date Type Department Care Team (Late st Contact Info) Description 01/01/2025 2:30 PM EST Office Visit [facility] ADULT DENTAL 230 [place] [address] Juarez Damon DDS [address] [place] [address] 01/08/2025 11:00 AM EST Medication Management [facility] MEDICINE [address] [place] [address] Vaishali Minor, PharmD 230 [place] [address] 02/19/2025 1:00 PM EDT Office Visit [facility] MEDICINE [address] [place] [address] Sepideh Hopkins ANP [address] [place] [address] 05/20/2025 1:00 PM EDT Office Visit [facility] ADULT DENTAL [address] [place] [address] Linsey Dawkins documented as of this encounter Visit Diagnoses Diagnosis Encounter for immunization- Primary documented in this encounter Additional Health Concerns Assessment Noted Time PHQ-9 Depression Total Score: 5 11/23/19 25 1:05 PM EST documented as of this encounter Care Teams Hat Ironer Relationship Specialty Start Date End Date Sepideh Hopkins ANP [address] [place] [address] PCP - General Family Medicine 07/07/20 Vaishali Minor PharmD [address] [place] [address] Pharmacist Internal Medicine 10/29/24 documented as of this encounter
--- OUTSIDE RECORDS SUMMARY | 2024-12-17 06:48 | XMS_ITS | Encounter Summary ---
Author Organization [employer] Address 75 [facility] 7t [place] [address] Care Team Providers Care Transit Clerk Name Role Phone Sepideh Hopkins Primary Care Provider Vaishali Minor PharmD Unavailable [phone] Encounter Details Date Type Department Care Team (Late st Contact Info) Description 10/04/2022 Abstract [facility] ADULT DENTAL 230 [place] [address] Dental, Provider, DDS Social History Tobacco Use [...] Description 01/01/2025 2:30 PM EST Office Visit [facility] ADULT DENTAL [address] [place] [address] Juarez Damon DDS [address] [place] [address] 01/08/2025 11:00 AM EST Medication Management [facility] MEDICINE [address] [place] [address] Vaishali Minor, PharmD 230 [place] [address] 02/19/2025 1:00 PM EDT Office Visit [facility] MEDICINE [address] [place] [address] Sepideh Hopkins ANP [address] [place] [address] 05/20/2025 1:00 PM EDT Office Visit [facility] ADULT DENTAL [address] [place] [address] Linsey Dawkins documented as of this encounter Procedures Procedure Name Priority Date/Time Associated Diagnosis Comments 25 LI COMPOSITE FILLING Routine 10/04/2022 12:00 AM EST 15 O COMPOSITE FILLING Routine 10/04/2022 12:00 AM EST 12 MOD COMPOSITE FILLING Routine 10/04/2022 12:00 AM EST 11 DL COMPOSITE FILLING Routine 10/04/2022 12:00 AM EST 3 L COMPOSITE FILLING Routine 10/04/2022 12:00 AM EST 9 PFM CROWN Routine 04/01/2016 12:00 AM EDT 8 PFM CROWN Routine 04/01/2016 12:00 AM EDT 2,4,5,10,13,14 PARTIAL DENTURE - RESIN Routine 04/03/2015 12:00 AM EDT documented in this encounter Visit Diagnoses Not on filedocumented in this encounter Care Teams Transit Clerk Relationship Specialty Start Date End Date Sepideh Hopkins ANP [address] [place] [address] PCP - General Family Medicine 07/07/20 Vaishali Minor PharmD [address] [place] [address] Pharmacist Internal Medicine 10/29/24 documented as of this encounter
--- OUTSIDE RECORDS SUMMARY | 2024-12-17 06:48 | XMS_ITS | Clinical Summary ---
Author Organization [facility] Address [address] [place] [address] Care Team Providers Care Retail Team Member Name Role Phone Karlos Adame [facility] Primary Care Provider Family History Medical History Relation Comments Diabetes Mother Hypertension Mother Hypertension Sibling 1 sister Heart disease Sibling 2 brother Relation Status Comments Father Unknown Mother Unknown Sibling 1 Sibling 2 Social History Tobacco Use Types Packs/Day Years Used Date Smoking Tobacco: Former Comments:Smoking History Inf o:Some days Alcohol Use Standard Drinks/Week Comments No 0 (1 standard drink = 0.6 oz pur e alcohol) Comments Unknown Sex and Gender Information Value Date Recorded Sex Assigned at Not on file Legal Sex Female 4:37 PM EST Gender Identity Not on file Sexual Orientation Not on file Last Filed Vital Signs Vital Sign Reading Time Taken Comments Blood Pressure 110/74 01/08/2019 12:00 PM EST Pulse 76 01/08/2019 12:00 PM EST Temperature - - Respiratory Rate 16 01/08/2019 12:00 PM EST Oxygen Saturation - - Inhaled Oxygen Concentration - - Weight 68.9 kg (152 lb) 01/08/2019 12:00 PM EST Height 154.9 cm (5' 1 ) 01/08/2019 12:00 PM EST Body Mass Index 28.72 01/08/2019 12:00 PM EST Plan of Treatment Health Maintenance Due Date Last Done Comments Breast Cancer Screening 1961 Colorectal Cancer Screening: Annual FOBT 2010 Colorectal Cancer Screening: Colonoscopy 2010 Colorectal Cancer Screening: Sigmoidoscopy 2010 Pneumococcal Vaccine: Pediat rics (0 to 5 Years) and At-Risk Patients (6 to 64 Years) (2 of 2 - PCV) 03/24/2015 03/24/2014 Diabetes: Hemoglobin A1C 01/28/2020 10/19/2017 Diabetes: Ophthalmology Exam 01/28/2020 Diabetes: Pedal Pulse Checked 01/28/2020 Diabetes: Sensory Foot Exam 01/28/2020 Diabetes: Visual Foot Exam 01/28/2020 Influenza Vaccine (#1) 2024 08/24/2015 Hepatitis B Vaccine Aged Out No longe r eligible based on patient's age to complete this topic Procedures Procedure Name Priority Date/Time Associated Diagnosis Comments LAB MACHINIST OUTSIDE Routine 10/19/2017 12:00 AM EST from Last 3 Months or Most Recently Relevant to Health Maintenance Results * Lab Chief Order Dispatcher (10/19/2017 12:00 AM EST) Hemoglobin A1C 5.9 % [facility] 10/19/2017 us [facility]version [facility] [id number] LICITED RESULTS Final Result [facility] from Last 3 Months or Most Recently Relevant to Health Maintenance [place] Care Teams Retail Team Member Relationship Specialty Start Date End Date Karlos Adame FNP [address] [place] [address], [address]rd [place] [address] PCP - General 11/17/20
--- OUTSIDE RECORDS SUMMARY | 2024-12-17 06:49 | XMS_ITS | Encounter Summary ---
Author Organization [employer] Address [address] [facility] 7t [place] [address] Care Team Providers Care Operations Clerk Name Role Phone Sepideh Hopkins JAVI Primary Care Provider [phone] Vaishali Minor PharmD Unavailable [phone] Reason for Visit * Reason Onset Date Comments Results 11/23/2024 Encounter Details Date Type Department Care Team ([facility] st Contact Info) Description 11/23/2024 Telephone [facility] MEDICINE [address] [place], [place] [phone] Taylor Dai, MENDEL Results Social History Tobacco Use Types Packs/Day Years [...] encounter Miscellaneous Notes * Telephone Encounter - Taylor Dai RN - 11/23/2024 11:02 AM EST Telephone call returned to patient in regards to below message. Patient verbalized understanding and denied having any further questions or concerns at this time. Patient to follow up as needed. * Telephone Encounter - Taylor Dai RN - 11/23/2024 11:01 AM EST ----- Message from Sepideh Hopkins sent at 11/23/2024 9:32 AM EST ----- Please let patient know that CT scan showed moderate sinusitis - which, given her symptoms, may be chronic. This is likely contributing to her headaches. Recommend nasal saline every day for at least2 months and if this does not help we will refer to ENT. 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 documented in this encounter Plan of Treatment Upcoming Encounters Date Type Department Care Team (Late st Contact Info) Description 01/01/2025 2:30 PM EST Office Visit [facility] ADULT DENTAL [address] [place] [address] Juarez Damon DDS [address] [place] [address] 01/08/2025 11:00 AM EST Medication Management [facility] MEDICINE [address] [place] [address] Vaishali Minor PharmD [address] [place] [address] 02/19/2025 1:00 PM EDT Office Visit [facility] MEDICINE [address] [place] [address] Sepideh Hopkins ANP [address] [place] [address] 05/20/2025 1:00 PM EDT Office Visit [facility] ADULT DENTAL [address] [place] [address] Linsey Dawkins documented as of this encounter Visit Diagnoses Not on filedocumented in this encounter Additional Health Concerns Assessment Noted Time PHQ-9 Depression Total Score: 5 11/23/19 25 1:05 PM EST documented as of this encounter Care Teams Operations Clerk Relationship Specialty Start Date End Date Sepideh Hopkins ANP [address] [place] [address] PCP - General Family Medicine 07/07/20 Vaishali Minor, Leonidas [address] [place] [address] Pharmacist Internal Medicine 10/29/24 documented as of this encounter
--- OUTSIDE RECORDS SUMMARY | 2024-12-17 06:49 | XMS_ITS | Encounter Summary ---
Author Organization [employer] Address 75 [facility] 7t [place] [address] Care Team Providers Care Electronic Development Technician Name Role Phone Sepideh Hopkins JAVI Primary Care Provider [phone] Vaishali Minor PharmD Unavailable [phone] Encounter Details Date Type Department Care Team (Latest Contact Info) Description 11/23/2024 Travel Social History Tobacco Use Types Packs/Day Years [...] Description 01/01/2025 2:30 PM EST Office Visit [facility] ADULT DENTAL [address] [place] [address] Juarez Damon DDS [address] [place] [address] 01/08/2025 11:00 AM EST Medication Management [facility] MEDICINE [address] [place] [address] Vaishali Minor, PharmD [address] [place] [address] 02/19/2025 1:00 PM EDT Office Visit [facility] MEDICINE [address] [place] [address] Sepideh Hopkins ANP [address] [place] [address] 05/20/2025 1:00 PM EDT Office Visit [facility] ADULT DENTAL [address] [place] [address] Linsey Dawkins documented as of this encounter Visit Diagnoses Not on filedocumented in this encounter Additional Health Concerns Assessment Noted Time PHQ-9 Depression Total Score: 5 11/23/19 25 1:05 PM EST documented as of this encounter Care Teams Electronic Development Technician Relationship Specialty Start Date End Date Sepideh Hopkins ANP [address] [place] [address] PCP - General Family Medicine 07/07/20 Vaishali Minor, IrwinD [address] [place] [address] Pharmacist Internal Medicine 10/29/24 documented as of this encounter
--- OUTSIDE RECORDS SUMMARY | 2024-12-17 06:49 | XMS_ITS | Encounter Summary ---
Author Organization [employer] Address [address] [facility] 7t [place] [address] Care Team Providers Care Senior Radiation Protection Technician Name Role Phone Sepideh Hopkins JAVI Primary Care Provider [phone] Vaishali Minor PharmD Unavailable [phone] Reason for Visit * Reason Comments Dental Pain Encounter Details Date Type Department Care Team ([facility] st Contact Info) Description 11/30/2024 11:30 AM EST Office Visit [facility]ULT [facility] [address] [place] [address] Sadaf Hernandez, DDS [address] [place], [place] [phone] Alveolitis of maxilla (Primary Dx) Social History Tobacco Use Types [...] your housing situation today? I have kb sing 11/18/[address] you li [...] AM EDT documented as of this encounter Last Filed Vital Signs Vital Sign Reading Time Taken Comments Blood Pressure 128/72 11/30/2024 11:40 AM EST Pulse - - Temperature - - Respiratory Rate - - Oxygen Saturation - - Inhaled Oxygen Concentration - - Weight - - Height - - Body Mass Index - - documented in this encounter Progress Notes * Sadaf Hernandez DDS - 11/30/2024 11:30 AM EST Pt in office for evaluation on UL side. Ptin pain. Multiple extractions completed in October, Bone spicule observed on the clinical examination on the area of tooth 315. No Oral- Antral communication observed on the x-ray. Dr. Damon proceeds today to remove spicule. Pt agreed with procedure today. documented in this encounter Plan of Treatment Upcoming Encounters Date Type Department Care Team (Late st Contact Info) Description 01/01/2025 2:30 PM EST Office Visit [facility] ADULT D[facility] [address] [place] [address] Juarez Damon DDS [address] [place] [address] 01/08/2025 11:00 AM EST Medication Management [facility] [address] [place] [address] Vaishali Minor PharmD [address] [place] [address] 02/19/2025 1:00 PM EDT Office Visit [facility] [address] [place] [address] Sepideh Hopkins ANP [address] [place] [address] 05/20/2025 1:00 PM EDT Office Visit [facility]ULT [facility] [address] [place] [address] Linsey Dawkins documented as of this encounter Procedures Procedure Name Priority Date/Time Associated Diagnosis Comments LIMITED ORAL EVALUATION - PROBLEM FOCUSED Routine 11/30/2024 11:30 AM EST Alveolitis of maxilla INTRAORAL - PERIAPICAL FIRST RADIOGRAPHIC IMAGE Routine 11/30/2024 11:30 AM EST Alveolitis of maxilla documented in this encounter Visit Diagnoses Diagnosis Alveolitis of maxilla- Primary Alveolitis of jaw documented in this encounter Additional Health Concerns Assessment Noted Time PHQ-9 Depression Total Score: 5 11/23/19 25 1:05 PM EST documented as of this encounter Care Teams Senior Radiation Protection Technician Relationship Specialty Start Date End Date Sepideh Hopkins ANP [address] [place] [address] PCP - General Family Medicine 07/07/20 Vaishali Minor PharmD [address] [place] [phone] Pharmacist Internal Medicine 10/29/24 documented as of this encounter
--- OUTSIDE RECORDS SUMMARY | 2024-12-17 06:49 | XMS_ITS | Encounter Summary ---
Author Organization [employer] Address [address] [facility] 7t [place] [address] Care Team Providers Care Crematory Attendant Name Role Phone Sepideh Hopkins Primary Care Provider [phone] Vaishali Minor PharmD Unavailable [phone] Encounter Details Date Type Department Care Team (Late st Contact Info) Description 11/23/2024 Orders Only [facility] [address] [place] [address] Sepideh Hopkins ANP [address] [place] [address] Chronic maxillary sinusitis (Primary Dx); Nasal congestion Social History Tobacco Use Types Packs/Day Years [...] as of this encounter Progress Notes * JAVI Hill - 11/23/2024 9:32 AM EST Saline nasal spray documented in this encounter Plan of Treatment Upcoming Encounters Date Type Department Care Team (Late st Contact Info) Description 01/01/2025 2:30 PM EST Office Visit [facility] ADULT DENTAL [address] [place] [address] Juarez Damon, DDS [address] [place] [address] 01/08/2025 11:00 AM EST Medication Management [facility] [address] [place] [address] Vaishali Minor, PharmD [address] [place] [address] 02/19/2025 1:00 PM EDT Office Visit [facility] [address] [place] [address] Sepideh Hopkins ANP [address] [place] [address] 05/20/2025 1:00 PM EDT Office Visit [facility] ADULT DENT[facility] [address] [place] [address] Linsey Dawkins documented as of this encounter Visit Diagnoses Diagnosis Chronic maxillary sinusitis- Primary Nasal congestion Other diseases of nasal cavity and sinuses documented in this encounter Additional Health Concerns Assessment Noted Time PHQ-9 Depression Total Score: 5 11/23/19 25 1:05 PM EST documented as of this encounter Care Teams Crematory Attendant Relationship Specialty Start Date End Date Sepideh Hopkins ANP [address] [place] [address] PCP - General Family Medicine 07/07/20 Vaishali Minor PharmD [address] [place] [address] Pharmacist Internal Medicine 10/29/24 documented as of this encounter
--- OUTSIDE RECORDS SUMMARY | 2024-12-17 06:49 | XMS_ITS | Encounter Summary ---
Author Organization [employer] Address [address] [facility] 7t [place] [address] Care Team Providers Care Quilting Supervisor Name Role Phone Neil Bernard Primary Care Provider [phone] Vaishali Minor PharmD Unavailable [phone] Reason for Referral * Consultation (Routine) - Closed Specialty Diagnoses / Procedures Referred By Contkee t Referred To Contact Otolaryngology Diagnoses Dizziness Chronic maxillary sinusitis Neil Bernard ANP [address] [place] [address] Phone: tel: fax: [facility] [address] Phone: tel: fax: Referral ID Status Reason Start Date Expiration Date V isits Requested Visits Authorized [id number] Closed Specialty Services Required 12/13/2024 12/13/2025 6 6 Encounter Details Date Type Department Care Team (Late st Contact Info) Description 11/23/2024 1:00 PM EST Telemedicine [facility] [address] [place], [place] [phone] Neil Bernard ANP [address] [place], [place] [phone] Dizziness (Primary Dx); Chronic maxillary sinusitis Social History Tobacco Use Types Packs/Day Years [...] Progress Notes * JAVI Hill - 11/23/2024 1:00 PM EST Subjective Patient ID: Joelle Myers is a 64 y.o. adult who presents for imaging f/u. HPI Patient Active Problem List Diagnosis Allergic rhinitis Asthma Atherosclerosis of coronary artery Chronic kidney disease Chronic obstructive lung disease (CMS/HCC) Type 2 diabetes mellitus with hyperlipidemia (CMS/HCC) (CMS/HCC) Gastroesophageal reflux disease Disorder of skeletal muscle Hyperlipidemia Hypertension Mixed anxiety and depressive disorder Obesity Old myocardial infarction History of cervical corpectomy Current use of anticoagulant therapy Personal history of PE (pulmonary embolism) Stented coronary artery Extensive root caries lesions involving dentin CAD (coronary artery disease) Osteophyte of cervical spine Gastroparesis Elevated LFTs Dyslipidemia Diabetic polyneuropathy associated with type 2 diabetes mellitus (CMS/HCC) Constipation Acute gastritis Alveolitis of maxilla Dizziness Dental plaque Bone spicules of jaw [employer] Interpreters utilized for Setswana interpretation #[id number] Jessica Televisit today to review CT scan. CT/CT head/brain wo IV con IMPRESSION: 1. No evidence of acute intracranial hemorrhage or edematous territorial infarction. 2. Moderate underlying microangiopathy and generalized cerebral volume loss. 3. Partially visualized moderate left maxillary sinus disease. BP 120/60 today ENT referral for chronic sinusitis and dizziness, will stop lasix d/t low diastolic and possible contributor to dizziness. Reviewed w/ pt message RN also gave to pt as below: Please let patient know that CT scan showed moderate sinusitis - which, given her symptoms, may bechronic. This is likely contributing to her headaches. Recommend nasal saline every day for at least 2 months and if this does not help we will refer to ENT. 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 Former smoker Review of Systems Constitutional: Negative. HENT: Negative. Respiratory: Negative. Cardiovascular: Negative. Psychiatric/Behavioral: Negative. Objective There were no vitals taken for this visit. Physical Exam Exam limited by telehealth format. Pt speaking clearly in complete sentences. Assessment/Plan Diagnoses and all orders for this visit: Dizziness Chronic maxillary sinusitis ENT referral for chronic sinusitis and dizziness, will stop lasix d/t low diastolic and possible contributor to dizziness. Due to her dizziness she also requires use of a shower chair to have available to aid with independent bathing and decrease risk for falls. Ordering Physician: NEIL BERNARD NP Date of Service: 10/12/24 Procedure(s): CT head/brain wo IV con Accession Number(s): [id number] cc: NEIL BERNARD SALES REPRESENTATIVE [employer] Report Number: [id number]: Total DLP = 615.00 mGy-cm EXAMINATION: CT HEAD WITHOUT CONTRAST CLINICAL INFORMATION: Chronic daily headache. Dizziness. COMPARISON: None available. TECHNIQUE: Contiguous axial imaging was performed from the skull base to vertex without intravenous administration of contrast. This CT examination was performed using dose optimization techniques as appropriate, variously including the following: *Automated exposure control. *Adjustment of mA and/or kV according to patient size (this includes techniques or standardized protocols for targeted exams where dose is matched to indication/reason for exam; i.e. extremities or head). *Use of iterative reconstruction technique. DLP: 615 mGy-cm FINDINGS: There is no evidence of acute intracranial hemorrhage or edematous territorial infarction. [place]-white matter differentiation is preserved. Scattered and partially confluent hypoattenuation in the periventricular and deep white matter are consistent with moderate microangiopathy. Proportional prominence of the ventricles and sulcal spaces without evidence of obstructive hydrocephalus. Mild expansion of the sella turcica with partial flattening of the pituitary gland. The suprasellar cistern remains widely patent. Normal positioning of the cerebellar tonsils. No abnormal mass effect or midline shift. No extra-axial fluid collections. Calcific atherosclerotic disease of the intracranial internal carotid and vertebral arteries. No hyperdense vessel sign. No acute soft tissue or osseous abnormalities. Moderate mucosal thickening of the left maxillary sinus. Mild mucosal thickening of the remaining paranasal sinuses. The mastoid air cells and middle ear cavities are clear. Moderate degenerative arthropathy of the left greater than right temporomandibular joints. CT/CT head/brain wo IV con IMPRESSION: 1. No evidence of acute intracranial hemorrhage or edematous territorial infarction. 2. Moderate underlying microangiopathy and generalized cerebral volume loss. 3. Partially visualized moderate left maxillary sinus disease. Electronically signed by: Javier Gonzalez DO 11/21/2024 02:25 AM EST documented in this encounter Plan of Treatment Upcoming Encounters Date Type Department Care Team (Late st Contact Info) Description 01/01/2025 2:30 PM EST Office Visit [facility] ADULT D[facility] [address] [place] [address] Juarez Damon DDS [address] [place] [address] 01/08/2025 11:00 AM EST Medication Management [facility] [address] [place] [address] Vaishali Minor PharmD [address] [place] [address] 02/19/2025 1:00 PM EDT Office Visit [facility] [address] [place] [address] Neil Bernard ANP [address] [place] [address] 05/20/2025 1:00 PM EDT Office Visit [facility] ADULT [facility] [address] [place] [address] Linsey Dawkins Pending Results Name Type Priority Associated Diagnoses Date /Time Referral to ENT Outpatient Referral Routine Dizziness Chronic maxillary sinusitis 12/13/2024 Scheduled Referrals Name Type Priority Associated Diagnoses Orde r Schedule Referral to ENT Outpatient Referral Routine Dizziness Chronic maxillary sinusitis Expected: 12/11/2024 (Approximate), Expires: 12/11/2025 documented as of this encounter Visit Diagnoses Diagnosis Dizziness- Primary Dizziness and giddiness Chronic maxillary sinusitis documented in this encounter Additional Health Concerns Assessment Noted Time PHQ-9 Depression Total Score: 5 11/23/19 25 1:05 PM EST documented as of this encounter Care Teams Quilting Supervisor Relationship Specialty Start Date End Date Neil Bernard ANP [address] [place] [address] PCP - General Family Medicine 07/07/20 Vaishali Minor, Leonidas [address] [place] [address] Pharmacist Internal Medicine 10/29/24 documented as of this encounter
--- OUTSIDE RECORDS SUMMARY | 2024-12-17 06:49 | XMS_ITS | Encounter Summary ---
Author Organization [employer] Address [address] [place] [address] 7t [place] [address] Care Team Providers Care Insemination Worker Name Role Phone Sepideh Hopkins Primary Care Provider [phone] Vaishali Minor PharmD Unavailable [phone] Reason for Visit * Reason Comments Med Refill Encounter Details Date Type Department Care Team (Late st Contact Info) Description 06/16/2023 Refill [facility] [address] [place] [address] [phone] Tisha Cornelius FNP [address] [place] [address] Dept [place] [address] Social History Tobacco Use Types Packs/Day Years Used Date Smoking Tobacco: Never Smokeless Tobacco: Never Alcohol Use Standard Drinks/Week [...] Description 01/01/2025 2:30 PM EST Office Visit [facility] ADULT D[facility] [address] [place], [place] [phone] Juarez Damon DDS [address] [place], [place] [phone] 01/08/2025 11:00 AM EST Medication Management [facility] [address] [place], [place] [phone] Vaishali Minor PharmD [address] [place] [address] 02/19/2025 1:00 PM EDT Office Visit [facility] [address] [place] [address] Sepideh Hopkins ANP [address] [place] [address] 05/20/2025 1:00 PM EDT Office Visit [facility] ADULT D[facility] [address] [place] [address] Linsey Dawkins documented as of this encounter Visit Diagnoses Not on filedocumented in this encounter Care Teams Insemination Worker Relationship Specialty Start Date End Date Sepideh Hopkins ANP [address] [place] [address] PCP - General Family Medicine 07/07/20 Vaishali Minor, IrwinD [address] [place] [address] Pharmacist Internal Medicine 10/29/24 documented as of this encounter
--- OUTSIDE RECORDS SUMMARY | 2024-12-17 06:49 | XMS_ITS | Encounter Summary ---
Author Organization [employer] Address 75 [facility] 7t [place] [address] Care Team Providers Care Wood Box Maker Name Role Phone Sepideh Hopkins JAVI Primary Care Provider [phone] Vaishali Minor PharmD Unavailable [phone] Reason for Visit * Reason Comments Dental Pain Pain after ext Encounter Details Date Type Department Care Team ([facility] st Contact Info) Description 10/30/2024 9:30 AM EST Office Visit [facility] [address] [place], [place] [phone] Juarez Damon DDS [address] [place], [place] [phone] Alveolitis of maxilla (Primary Dx) Social History [...] Sign Reading Time Taken Comments Blood Pressure 128/80 10/30/2024 9:41 AM EST Pulse 67 10/30/2024 9:41 AM EST Temperature - - Respiratory Rate - - Oxygen Saturation - - Inhaled Oxygen Concentration - - Weight - - Height - - Body Mass Index - - documented in this encounter Progress Notes * Juarez Damon DDS - 10/30/2024 9:30 AM EST Joelle Myers presents for post op. Follow up with chief complaint ... all extractions are almost cured, but my upper right side, in here, it is with severe pain and it seems there is a piece of tooth in there . EOE : WNL no asymmetry no changes on skin color IOE : Empty alveolus. Tender, erythematous gingival region on extracted # 6 ; food detritus noticed. Irrigated alveolus with Chlorhexidine, indication to improve ANGOON ; emphasized not to pock area withtongue or finger (as she admitted of doing it), prescription given / sent to [facility] on file. [place] F/U as needed / referred back to dr Angeles. [employer] Consultant Pierre Damon documented in this encounter Plan of Treatment Upcoming Encounters Date Type Department Care Team (Late st Contact Info) Description 01/01/2025 2:30 PM EST Office Visit [facility] ADULT DENTAL [address] [place] [address] Juarez Damon DDS [address] [place] [address] 01/08/2025 11:00 AM EST Medication Management [facility] MED[facility] [address] [place] [address] Vaishali Minor PharmD [address] [place] [address] 02/19/2025 1:00 PM EDT Office Visit [facility] [address] [place] [address] Sepideh Hopkins ANP [address] [place] [address] 05/20/2025 1:00 PM EDT Office Visit [facility] ADULT DENTAL [address] [place] [address] Linsey Dawkins documented as of this encounter Procedures Procedure Name Priority Date/Time Associated Diagnosis Comments NO CHARGE VISIT Routine 10/30/2024 9:30 AM EST INTRAORAL - PERIAPICAL FIRST RADIOGRAPHIC IMAGE Routine 10/30/2024 9:30 AM EST documented in this encounter Visit Diagnoses Diagnosis Alveolitis of maxilla- Primary Alveolitis of jaw documented in this encounter Care Teams Wood Box Maker Relationship Specialty Start Date End Date Sepideh Hopkins ANP [address] [place] [address] PCP - General Family Medicine 07/07/20 Vaishali Minor PharmD [address] [place] [address] Pharmacist Internal Medicine 10/29/24 documented as of this encounter
--- OUTSIDE RECORDS SUMMARY | 2024-12-17 06:49 | XMS_ITS | Encounter Summary ---
Author Organization [employer] Address [address] [facility] 7t [place] [address] Care Team Providers Care Sizing End Bander Name Role Phone Sepideh Hopkins JAVI Primary Care Provider [phone] Vaishali Minor PharmD Unavailable [phone] Encounter Details Date Type Department Care Team (Late st Contact Info) Description 12/10/2024 Telephone [facility] [address] [place] [address] Vaishali Minor, PharmD [address] [place], [place] [phone] Social History Tobacco Use Types Packs/Day Years [...] encounter Miscellaneous Notes * Telephone Encounter - Vaishali Minor PharmD - 12/10/2024 12:41 PM EST Patient was seen as follow up in [facility] today and reports concern of ongoing dizziness and is open toreferral for ENT as noted in last PCP visit note 11/23/24 as next steps. Please assist with ENT referral. Patient is also requesting a shower chair to use due to concern of dizziness when bathing. Thank you! documented in this encounter Plan of Treatment Upcoming Encounters Date Type Department Care Team (Late st Contact Info) Description 01/01/2025 2:30 PM EST Office Visit [facility] ADULT DENTAL [address] [place] [address] Juarez Damon DDS [address] [place] [address] 01/08/2025 11:00 AM EST Medication Management [facility] [address] [place] [address] Vaishali Minor PharmD [address] [place] [address] 02/19/2025 1:00 PM EDT Office Visit [facility] [address] [place] [address] Sepideh Hopkins ANP [address] [place] [address] 05/20/2025 1:00 PM EDT Office Visit [facility] ADULT DENTAL [address] [place] [address] Linsey Dawkins documented as of this encounter Visit Diagnoses Not on filedocumented in this encounter Additional Health Concerns Assessment Noted Time PHQ-9 Depression Total Score: 5 11/23/19 25 1:05 PM EST documented as of this encounter Care Teams Sizing End Bander Relationship Specialty Start Date End Date Sepideh Hopkins ANP [address] [place] [address] PCP - General Family Medicine 07/07/20 Vaishali Minor PharmD [address] [place] [address] Pharmacist Internal Medicine 10/29/24 documented as of this encounter
--- OUTSIDE RECORDS SUMMARY | 2024-12-17 06:49 | XMS_ITS | Encounter Summary ---
Author Organization [employer] Address [address] [facility] 7t [place] [address] Care Team Providers Care Journeyman Molder Name Role Phone Sepideh Hopkins JAVI Primary Care Provider [phone] Vaishali Minor PharmD Unavailable [phone] Encounter Details Date Type Department Care Team (Latest Contact Info) Description 12/10/2024 Travel Social History Tobacco Use Types Packs/Day [...] Description 01/01/2025 2:30 PM EST Office Visit [facility] ADULT DENTAL [address] [place] [address] Juarez Damon DDS [address] [place] [address] 01/08/2025 11:00 AM EST Medication Management [facility] [address] [place] [address] Vaishali Minor, PharmD [address] [place] [address] 02/19/2025 1:00 PM EDT Office Visit [facility] [address] [place] [address] Sepideh Hopkins ANP [address] [place] [address] 05/20/2025 1:00 PM EDT Office Visit [facility]ULT D[facility] [address] [place] [address] Linsey Dawkins documented as of this encounter Visit Diagnoses Not on filedocumented in this encounter Additional Health Concerns Assessment Noted Time PHQ-9 Depression Total Score: 5 11/23/19 25 1:05 PM EST documented as of this encounter Care Teams Journeyman Molder Relationship Specialty Start Date End Date Sepideh Hopkins ANP [address] [place] [address] PCP - General Family Medicine 07/07/20 Vaishali Minor, IrwinD [address] [place] [address] Pharmacist Internal Medicine 10/29/24 documented as of this encounter
--- OUTSIDE RECORDS SUMMARY | 2024-12-17 06:49 | XMS_ITS | Encounter Summary ---
Author Organization [employer] Address [address] [facility] 7t [place] [address] Care Team Providers Care Diversity Manager Name Role Phone Sepideh Hopkins JAVI Primary Care Provider [phone] Vaishali Minor PharmD Unavailable [phone] Reason for Visit * Reason Comments Diabetic Eye Exam Encounter Details Date Type Department Care Team (Late st Contact Info) Description 12/11/2024 1:00 PM EST Office Visit [facility] OPTOMETRY [address] [place] [address] PardeepShreya, OD [address] [place] [address] Type 2 diabetes mellitus without complication, with long-term current use of insulin (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 ADULT DENTAL [address] [place] [address] Juarez Damon DDS [address] [place] [address] 01/08/2025 11:00 AM EST Medication Management [facility] MEDICINE [address] [place] [address] Vaishali Minor, PharmD [address] [place] [address] 02/19/2025 1:00 PM EDT Office Visit [facility] MEDICINE [address] [place] [address] Sepideh Hopkins, ANP [address] [place] [address] 05/20/2025 1:00 PM EDT Office Visit [facility] ADULT DENTAL [address] [place] [address] Linsey Dawkins Pending Results Name Type Priority Associated Diagnoses Date /Time OCT, Retina - OU - Both Eyes Ophthalmology Routine Adult vitelliform macular dystrophy 12/11/2024 2:18 PM EST documented as of this encounter Visit Diagnoses Diagnosis Type 2 diabetes mellitus without complication, with long-term current use of insulin (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
--- OUTSIDE RECORDS SUMMARY | 2024-12-17 06:49 | XMS_ITS | Encounter Summary ---
Author Organization [email or web address] Address [address] [facility] 7t [place] [address] Care Team Providers Care Rare/Endangered Species Specialist Name Role Phone Sepideh Hopkins Primary Care Provider [phone] Vaishali Minor PharmD Unavailable [phone] Reason for Visit * Reason Comments Med Refill Encounter Details Date Type Department Care Team ([facility] st Contact Info) Description 12/08/2024 Refill [facility] MEDICINE [address] [place], [place] [phone] Sepideh Hopkins ANP [address] [place], [place] [phone] Mixed anxiety and depressive disorder Social History Tobacco Use Types Packs/Day Years [...] Description 01/01/2025 2:30 PM EST Office Visit [facility] ADULT DENTAL [address] [place] [address] Juarez Damon DDS [address] [place] [address] 01/08/2025 11:00 AM EST Medication Management [facility] MEDICINE [address] [place] [address] Vaishali Minor, PharmD [address] [place] [address] 02/19/2025 1:00 PM EDT Office Visit [facility] MEDICINE [address] [place] [address] Sepideh Hopkins ANP [address] [place] [address] 05/20/2025 1:00 PM EDT Office Visit [facility] ADULT DENTAL [address] [place] [address] Linsey Dawkins documented as of this encounter Visit Diagnoses Diagnosis Mixed anxiety and depressive disorder Dysthymic disorder documented in this encounter Additional Health Concerns Assessment Noted Time PHQ-9 Depression Total Score: 5 11/23/19 25 1:05 PM EST documented as of this encounter Care Teams Rare/Endangered Species Specialist Relationship Specialty Start Date End Date Sepideh Hopkins ANP [address] [place] [address] PCP - General Family Medicine 07/07/20 Vaishali Minor PharmD [address] [place] [address] Pharmacist Internal Medicine 10/29/24 documented as of this encounter
--- OUTSIDE RECORDS SUMMARY | 2024-12-17 06:49 | XMS_ITS | Encounter Summary ---
Author Organization [employer] Address [address] [facility] 7t [place] [address] Care Team Providers Care Deal Architect Name Role Phone Sepideh Hopkins Primary Care Provider [phone] Vaishali Minor PharmD Unavailable [phone] Reason for Visit * Reason Comments Care Coordination Outreach Encounter Details Date Type Department Care Team (Latest Contact Info) Description 11/30/2024 Patient Outreach [facility] [address] [place], [place] [phone] Sepideh Hopkins ANP [address] [place] [address] Care Coordination (Outreach) Social History Tobacco Use [...] encounter Progress Notes * Xena Mckeon - 11/30/2024 10:18 AM EST CHW Xena Mckeon placed outbound call to patient to follow up on SDOH needs. Patient's name, and address confirmed. Patient states is doing well. No further questions or concerns. CHW reinforced direct contact information or CM for any additional questions or concerns and extended clinic hours on Mondays and Wednesdays, and Walk-In Urgent Care Located in [facility]. Patient provided with after-hours line for [facility], , which offer night time triage service and option to transfer to transportation planning engineer provider if needed. Patient verbalizes understanding, and able to repeat back to advertising writer. A follow up call willbe placed within 10 days, patient agrees with plan. documented in this encounter Plan of Treatment Upcoming Encounters Date Type Department Care Team (Late st Contact Info) Description 01/01/2025 2:30 PM EST Office Visit [facility] ADULT DENTAL [address] [place] [address] Juarez Damon DDS [address] [place], [place] [phone] 01/08/2025 11:00 AM EST Medication Management [facility] MEDICINE [address] [place] [address] Vaishali Minor PharmD [address] [place] [address] 02/19/2025 1:00 PM EDT Office Visit [facility] MEDICINE [address] [place] [address] Sepideh Hopkins ANP [address] [place] [address] 05/20/2025 1:00 PM EDT Office Visit [facility] ADULT DENTAL [address] [place] [address] Linsey Dawkins documented as of this encounter Visit Diagnoses Not on filedocumented in this encounter Additional Health Concerns Assessment Noted Time PHQ-9 Depression Total Score: 5 11/23/19 25 1:05 PM EST documented as of this encounter Care Teams Deal Architect Relationship Specialty Start Date End Date Sepideh Hopkins ANP [address] [place] [address] PCP - General Family Medicine 07/07/20 Vaishali Minor, Leonidas [address] [place] [phone] Pharmacist Internal Medicine 10/29/24 documented as of this encounter
--- OUTSIDE RECORDS SUMMARY | 2024-12-17 06:49 | XMS_ITS | Encounter Summary ---
Author Organization [employer] Address [address] [facility] 7t [place] [address] Care Team Providers Care Lieutenant Ballistics Name Role Phone HopkinsSepideh JAVI Primary Care Provider [phone] Vaishali Minor PharmD Unavailable [phone] Encounter Details Date Type Department Care Team (Late st Contact Info) Description 11/30/2024 12:00 PM EST Office Visit [facility] ADULT DENTAL [address] [place], [place] [phone] Juarez Damon DDS [address] [place], [place] [phone] Bone spicules of jaw (Primary Dx) Social History Tobacco Use Types [...] as of this encounter Progress Notes * Juarez Damon DDS - 11/30/2024 12:00 PM EST Dental procedures in this visit D9999.4 - NO CHARGE VISIT (Completed) Service provider: Juarez Damon DDS Billing provider: Juarez Damon DDS Patient ID: Joelle Myers is a 64 y.o. adult. Time Out: No data recorded Location: [facility] Tooth: #15 Procedure: X-rays Verified the above with patient, processing assistant, and provider. Confirmed via patient's chart, intraorally and by radiographs. Election Clerk: not applicable Chief complaint : Discomfort / pain on max. Left side Medical Hx: Vitals: There were no vitals taken for this visit. Patient presents for follow up. Objective: X Ray taken P.A. No retained root Empty alveolus Sinus proximity noticed Bone spiculae Recommendations: Removal of buccal bone spiculae, after 20% Benzocaine topical anesthesia and localinfiltration with 2% Lidocaine w.epi 1:100K / Courtesy of Dr. Reid, Dr. Damon proceeded with small incision to remove bone spicule using bone curette and file, manual pressure with 2x2 gauze no sutures needed. Written and verbal instructions given, emphasized to Keep optimal SPOKANE and recommended a 2 w. F/Up. Patient tolerated procedure well. All questions answered. Dismissed in good condition. NV: F/U with Dr. Damon Wheel Truer: Reyna Chong Dentist: Juarez Damon DDS documented in this encounter Plan of Treatment Upcoming Encounters Date Type Department Care Team (Late st Contact Info) Description 01/01/2025 2:30 PM EST Office Visit [facility] ADULT DENTAL [address] [place] [address] Juarez Damon DDS [address] [place] [address] 01/08/2025 11:00 AM EST Medication Management [facility] MEDICINE [address] [place] [address] Vaishali Minor PharmD [address] [place] [address] 02/19/2025 1:00 PM EDT Office Visit [facility] MEDICINE [address] [place] [address] Sepideh Hopkins ANP [address] [place] [address] 05/20/2025 1:00 PM EDT Office Visit [facility] ADULT DENTAL [address] [place] [address] Linsey Dawkins documented as of this encounter Procedures Procedure Name Priority Date/Time Associated Diagnosis Comments NO CHARGE VISIT Routine 11/30/2024 12:00 PM EST documented in this encounter Visit Diagnoses Diagnosis Bone spicules of jaw- Primary documented in this encounter Additional Health Concerns Assessment Noted Time PHQ-9 Depression Total Score: 5 11/23/19 1:05 PM EST documented as of this encounter Care Teams Lieutenant Ballistics Relationship Specialty Start Date End Date Sepideh Hopkins ANP [address] [place] [address] PCP - General Family Medicine 07/07/20 Vaishali Minor PharmD [address] [place] [address] Pharmacist Internal Medicine 10/29/24 documented as of this encounter
--- OUTSIDE RECORDS SUMMARY | 2024-12-17 06:49 | XMS_ITS | Encounter Summary ---
Author Organization [employer] Address 75 [facility] 7t [place] [address] Care Team Providers Care Customer Equipment Engineer Name Role Phone Sepideh Hopkins JAVI Primary Care Provider [phone] Vaishali Vale PharmD Unavailable [phone] Encounter Details Date Type Department Care Team (Latest Contact Info) Description 11/20/2024 2:30 PM EST Telemedicine [facility] MEDICINE [address] [place], [place] [phone] Vaishali Vale, PharmD [address] [place] [address] Type 2 diabetes mellitus with hyperlipidemia (CMS/HCC) (CMS/HCC) (Primary Dx) Social History Tobacco Use Types Packs/Day Years Used Date Smoking Tobacco: Former Cigarettes Smokeless Tobacco: Never Alcohol Use Standard Drinks/Week Comments Never 0 (1 standard drink = 0.6 oz pur e alcohol) Housing Stability Answer Date Recorded What is your housing situation today? I have kbshirley peace 11/18/[address] you [...] Answer Date Recorded Patient Health Questionnaire-2 Score 0 11/18/2023 Internet Access Answer Date Recorded Internet Access [...] as of this encounter Progress Notes * Vaishali Vale PharmD - 11/20/2024 2:30 PM EST Pharmacy Consult Visit Type: CDTM Pharmacist: Vaishali Vale PharmD Joelle Myers is a 64 y.o. year old patient here for follow up visit completed via televisit. Subjective History: General / Intake (updated 10/2024) Allergies: has No Known Allergies. Read/Write: Yes, in Lithuanian Recent Hospitalizations: Yes ED 10/09/24 for hyperglycemia, [facility] Social History as reported by patient: Tobacco: Past 5 years ago Alcohol: Denies Caffeine: Current, 1 cup(s)/day Illicit drugs: Denies Diet: denies Exercise: not at all Adherence / patient self-management Uses medboxes from [facility] pharmacy Reports satisfaction with medboxes Denies missed doses or removing medication Denies LIDA OTC medication, vitamin, supplement use: denies Type 2 Diabetes Acarbose discontinued at last CDTM visit 11/12/24; this visit is to follow up regarding BG following discontinuation of medication Reports the following BG data: Date Time BG (mg/dL) 11/17/24 4:30am 125 11/17/24 8:40am 157 11/17/24 10:35am 170 11/18/24 5:15am 131 11/18/24 7:40am 162 11/18/24 2pm 75 11/19/24 10am 139 11/19/24 5:30pm 148 11/19/24 9pm 212 11/20/24 noon 140 Ozempic increased by PCP 10/25/24 Reports decreased meal intake due to recent dental work and continued pain (follow up scheduled 11/14/24) Pertinent negatives include polyuria, polydipsia, blurred vision Hypertension Pertinent negatives include chest pain, blurry vision however reports daily headache and dizziness Denies SMBP Objective History: Treatment history/considerations: PMH: Polyneuroapthy Asthma COPD CAD/ASCVD Gastroparesis CKD Mixed anxiety and depressive disorder Personal history of PE Chronic dizziness Medication: Per previous notes, previous LIDA of cough with ACEi Previously on jardiance however stopped after 1 episode of infection Per endo notes unable to tolerate metformin doses >500mg twice daily Recent labs: Repeat FLP and LFT ordered 11/12/24 by [facility] Lab Results Component Value Date ALT 18 10/09/2024 AST 20 10/09/2024 LDLCHOLCAL 74 12/07/2023 TRIG 88 12/07/2023 K 4.2 10/12/2024 NA 137 10/12/2024 VITB12 387 12/07/2023 MICROALBCREU 14.4 10/12/2024 CREATININE 1.33 10/12/2024 EGFR 40 10/12/2024 HGBA1C 9.4 (A) 11/12/2024 HGBA1C 9.1 (A) 08/17/2024 HGBA1C 6.8 (A) 05/15/2024 Recent blood pressure readings: BP Readings from Last 4 Encounters: 11/14/24 122/78 11/12/24 125/85 11/12/24 90/60 10/30/24 128/80 Pulse Readings from Last 4 Encounters: 11/12/24 81 11/12/24 82 10/30/24 67 10/25/24 78 Immunizations Due: PCV20 and RSV (age 60-74 yo with risk factor(s)) Will review at follow up visit Preferred Pharmacy: [facility] [address] [facility] 230 [facility] [phone] Assessment/Plan: Type 2 Diabetes Pharmacologic Therapy: Ozempic 1mg once weekly (reports Tuesdays) Lantus solostar 54 units once daily Novolog flexpen 8 units before breakfast and 16 units before dinner Metformin ER 500mg twice daily Actos 15mg once daily Additional recommendations per ADA: On aspirin: Yes, for secondary prevention On statin: Yes (atorvastatin 40mg) On ACEI/ARB: No, per PCP to reassess addition of ARB Dental Exam in the past 6 mo: Yes Eye Exam in the past 12 mo: Unknown Goals of Therapy per the ADA Standards of Medical Care in Diabetes Achieve A1c of < 7.0% while also minimizing episodes of hypoglycemia Plan: Continue current therapy and SMBG Reports using novolog 18 units with dinner (most recent instruction/prescribed as 16 units with dinner); recommended patient to continue current 18 units with dinner Will discuss potential increase in Actos and/or Ozempic (last increased 10/25/24) at follow up visit Patient to follow up in CDTM in 3 weeks Education: Healthy diet and lifestyle. Discussed role of A1c monitoring, A1c and SMBG goals Reviewed risks of macro- and microvascular complications of uncontrolled DM. Reviewed signs, symptoms and treatments of hypoglycemia to which patient confirmed understanding. documented in this encounter Miscellaneous Notes * Addendum Note - Vaishali Vale PharmD - 11/20/2024 2:30 PM ESTAddended by: VAISHALI VALE on: 11/20/2024 05:36 PM Modules accepted: Orders documented in this encounter Plan of Treatment Upcoming Encounters Date Type Department Care Team (Late st Contact Info) Description 01/01/2025 2:30 PM EST Office Visit [facility] ADULT DENTAL [address] [place] [address] Juarez Damon DDS [address] [place] [address] 01/08/2025 11:00 AM EST Medication Management [facility] MEDICINE [address] [place] [address] Vaishali Vale, Leonidas [address] [place] [address] 02/19/2025 1:00 PM EDT Office Visit [facility] MEDICINE [address] [place] [address] Sepideh Hopkins ANP [address] [place] [address] 05/20/2025 1:00 PM EDT Office Visit [facility] ADULT DENTAL [address] [place] [address] Linsey Dawkins documented as of this encounter Visit Diagnoses Diagnosis Type 2 diabetes mellitus with hyperlipidemia (CMS/HCC) (CMS/HCC)- Primary documented in this encounter Care Teams Customer Equipment Engineer Relationship Specialty Start Date End Date Sepideh Hopkins ANP [address] [place] [address] PCP - General Family Medicine 07/07/20 Vaishali Vale PharmD [address] [place] [address] Pharmacist Internal Medicine 10/29/24 documented as of this encounter
--- OUTSIDE RECORDS SUMMARY | 2024-12-17 06:49 | XMS_ITS | Encounter Summary ---
Author Organization [employer] Address 75 [facility] 7t [place] [address] Care Team Providers Care Bundles Hanger Name Role Phone Sepideh Hopkins JAVI Primary Care Provider [phone] Vaishali Minor PharmD Unavailable [phone] Reason for Visit * Reason Onset Date Comments Joana recall 12/10/2024 Encounter Details Date Type Department Care Team ([facility] st Contact Info) Description 12/10/2024 Telephone [facility] MEDICINE [address] [place], [place] [phone] Kesha Wilkinson MA February recall Social History Tobacco Use Types Packs/Day Years [...] encounter Miscellaneous Notes * Telephone Encounter - Kesha Wilkinson MA - 12/10/2024 3:24 PM EST T/C to pt to schedule a recall rv dm. PT agreed to come in on 02/19/25 at 1pm. documented in this encounter Plan of Treatment Upcoming Encounters Date Type Department Care Team (Late st Contact Info) Description 01/01/2025 2:30 PM EST Office Visit [facility] ADULT DENTAL [address] [place] [address] Juarez Damon DDS [address] [place] [address] 01/08/2025 11:00 AM EST Medication Management [facility] MEDICINE [address] [place] [address] Vaishali Minor, PharmD [address] [place] [address] 02/19/2025 1:00 PM EDT Office Visit [facility] MEDICINE [address] [place] [address] Sepideh Hopkins, ANP [address] [place] [address] 05/20/2025 1:00 PM EDT Office Visit [facility] ADULT DENTAL [address] [place] [address] Linsey Dawkins documented as of this encounter Visit Diagnoses Not on filedocumented in this encounter Additional Health Concerns Assessment Noted Time PHQ-9 Depression Total Score: 5 11/23/19 25 1:05 PM EST documented as of this encounter Care Teams Bundles Hanger Relationship Specialty Start Date End Date Sepideh Hopkins, ANP [address] [place] [address] PCP - General Family Medicine 07/07/20 Vaishali Minor PharmD [address] [place] [address] Pharmacist Internal Medicine 10/29/24 documented as of this encounter
--- OUTSIDE RECORDS SUMMARY | 2024-12-17 06:50 | XMS_ITS | Encounter Summary ---
Author Organization [employer] Address 75 [facility] 7t [place] [address] Care Team Providers Care Sand Slinger Operator Name Role Phone Sepideh Hopkins JAVI Primary Care Provider [phone] Vaishali Minor PharmD Unavailable [phone] Reason for Visit * Reason Onset Date Comments Appointment 12/08/2022 Patient called i n inquiring about RCT appt with Pasquale. Encounter Details Date Type Department Care Team ([facility] Contact Info) Description 12/08/2022 Telephone [facility] ADULT DENTAL [address] [place], [place] [phone] Gregorio Giordano, DMD [address] [place], [place] [phone] Appointment (Patient called in inquiring about RCT appt with Pasquale. ) Social History Tobacco Use Types Packs/Day Years [...] not to disclose 2021 10:17 AM EDT COVID-19 Exposure Response Date Recorded In the last 10 days, have yo u been in contact with someone who was confirmed or suspected to have Coronavirus/COVID-19? No / Unsure 12/07/2022 1:18 PM EST documented as of this encounter Miscellaneous Notes * Telephone Encounter - Noa Arauz - 12/08/2022 1:12 PM EST Patient called in inquiring about RCT appt with Pasquale. documented in this encounter Plan of Treatment Upcoming Encounters Date Type Department Care Team (Late st Contact Info) Description 01/01/2025 2:30 PM EST Office Visit [facility] ADULT DENTAL [address] [place] [address] Juarez Damon DDS [address] [place] [address] 01/08/2025 11:00 AM EST Medication Management [facility] MEDICINE [address] [place] [address] Vaishali Minor PharmD [address] [place] [address] 02/19/2025 1:00 PM EDT Office Visit [facility] MEDICINE [address] [place] [address] Sepideh Hopkins ANP [address] [place] [address] 05/20/2025 1:00 PM EDT Office Visit [facility] ADULT DENTAL [address] [place] [address] Linsey Dawkins documented as of this encounter Visit Diagnoses Not on filedocumented in this encounter Care Teams Sand Slinger Operator Relationship Specialty Start Date End Date Sepideh Hopkins ANP [address] [place] [address] PCP - General Family Medicine 07/07/20 Vaishali Minor PharmD [address] [place] [address] Pharmacist Internal Medicine 10/29/24 documented as of this encounter
--- OUTSIDE RECORDS SUMMARY | 2024-12-17 06:50 | XMS_ITS | Encounter Summary ---
Author Organization [employer] Address [address] [facility] [address] [place] [address] Care Team Providers Care Latcher Name Role Phone Sepideh Hopkins Primary Care Provider [phone] Vaishali Minor PharmD Unavailable [phone] Reason for Visit * Reason Comments Med Refill Encounter Details Date Type Department Care Team (Late st Contact Info) Description 01/05/2023 Refill [facility] MED[facility] [address] [place] [address] Sepideh Hopkins ANP [address] [place] [address] Social History Tobacco Use Types Packs/Day Years [...] PM EST documented as of this encounter Plan of Treatment Upcoming Encounters Date Type Department Care Team (Late st Contact Info) Description 01/01/2025 2:30 PM EST Office Visit [facility] ADULT DENTAL [address] [place] [address] Juarez Damon DDS [address] [place] [phone] 01/08/2025 11:00 AM EST Medication Management [facility] [address] [place] [phone] Vaishali Minor PharmD [address] [place] [phone] 02/19/2025 1:00 PM EDT Office Visit [facility] [address] [place] [phone] Sepideh Hopkins ANP [address] [place] [phone] 05/20/2025 1:00 PM EDT Office Visit [facility] [address] [place] [address] [phone] Linsey Dawkins documented as of this encounter Visit Diagnoses Not on filedocumented in this encounter Care Teams Latcher Relationship Specialty Start Date End Date Sepideh Hopkins ANP [address] [place] [phone] PCP - General Family Medicine 07/07/20 Vaishali Minor, Leonidas [address] [place] [address] [phone] Pharmacist Internal Medicine 10/29/24 documented as of this encounter
--- OUTSIDE RECORDS SUMMARY | 2024-12-17 06:50 | XMS_ITS | Encounter Summary ---
Author Organization [employer] Address [address] [facility] [address] [place] [address] Care Team Providers Care Busser Name Role Phone Sepideh Hopkins Primary Care Provider Vaishali Minor PharmD Unavailable Encounter Details Date Type Department Care Team (Late st Contact Info) Description 10/03/2023 Orders Only [facility] MED[facility]INE [address] [place] [phone] Sepideh Hopkins ANP [address] [place] [phone] Social History Tobacco Use Types Packs/Day Years [...] Description 01/01/2025 2:30 PM EST Office Visit [facility] ADULT DENTAL [address] [place] [phone] Juarez Damon DDS [address] [place] [address] 01/08/2025 11:00 AM EST Medication Management [facility] MED[facility]INE [address] [place] [phone] Vaishali Minor PharmD [address] [place] [phone] 02/19/2025 1:00 PM EDT Office Visit [facility] MEDICINE [address] [place] [phone] Sepideh Hopkins ANP [address] [place], [place] [phone] 05/20/2025 1:00 PM EDT Office Visit [facility] ADULT DENTAL [address] [place] [phone] Linsey Dawkins documented as of this encounter Visit Diagnoses Not on filedocumented in this encounter Care Teams Busser Relationship Specialty Start Date End Date Sepideh Hopkins ANP [address] [place] [phone] PCP - General Family Medicine 07/07/20 Vaishali Minor PharmD [address] [place] [phone] Pharmacist Internal Medicine 10/29/24 documented as of this encounter
--- OUTSIDE RECORDS SUMMARY | 2024-12-17 06:50 | XMS_ITS | Clinical Summary ---
Author Organization [employer] Address [address] [facility] [address] [place] [address] Care Team Providers Care Rfid Developer Name Role Phone Neil Bernard JAVI Primary Care Provider [phone] Vaishali Mnior PharmD Unavailable [phone]- [phone] Allergies No known active allergies Medications * This document contains information received from the source organization and may not represent a complete record from that organization. nitroglycerin (Nitrostat) 0.[address] 1 tablet under the tongue. 020 Active senna-docusate (Stimulant Laxative) 8.6-50 MG tabletIndication s:Constipation, unspecified constipation type TAKE 2 TABLETS BY MOUTH ONCE DAILY AT NOON NEEDED FOR CONSTIPATION 180 tablet 3 023 Active triamcinolone (Kenalog) 0.1 % creamIndications :Rash Apply topically if needed in the morning and at bedtime for rash. 30 g 024 Active BD Pen Needle Sienna U/F 32G X 4 MM miscIndications: Type 2 diabetes mellitus with hyperglycemia (CMS/[facility]),custodial (current) use of insulin (CMS/[facility]) USE FOUR TIMES DAILY 100 each 024 Active Lancets (Unilet Micro-Thin 33G) miscIndications: Type 2 diabetes mellitus with hyperglycemia (CMS/[facility]) TEST BLOOD SUGAR THREE TIMES DAILY 300 each 024 Active LORazepam (Ativan) 0.5 MG tablet Take 0.5 mg by mouth if needed in the morning and at bedtime for anxiety. 024 Active zolpidem (Ambien) 10 MG tablet Take 10 mg by mouth if needed at bedtime. 03/04/2 024 Active atorvastatin (Lipitor) 40 MG tabletIndication s:Hyperlipidemia , unspecified hyperlipidemia type Take 1 tablet (40 mg) by mouth at bedtime. 90 tablet 3 Active fenofibrate micronized (Lofibra) 134 MG capsuleIndicatio ns:Hyperlipidemi a, unspecified hyperlipidemia type Take 1 capsule (134 mg) by mouth in the morning. 90 capsule 3 Active Blood Pressure kit 1 each 2 times daily. 1 kit 024 2024 Active cetirizine (ZyrTEC) 10 MG tablet TAKE 1 TABLET BY MOUTH EVERY MORNING 90 tablet 3 Active Aspirin Adult Low Strength 81 MG EC tablet TAKE 1 TABLET BY MOUTH EVERY MORNING 90 tablet 3 Active albuterol (2.5 MG/3ML) 0.083% nebulizer solutionIndicati ons:Chronic obstructive pulmonary disease with acute exacerbation (CMS/HCC) Take 3 mL (2.5 mg) by nebulization every 6 (six) hours if needed for wheezing or shortness of breath. 75 mL 3 024 2024 Active albuterol 108 (90 Base) MCG/ACT inhaler Inhale 2 puffs every 4 (four) hours. 18 g 5 Active tiotropium (Spiriva HandiHaler) [address] 1 capsule (18 mcg) into inhaler and inhale in the morning. 30 capsule 5 Active budesonide-formo terol (Symbicort) 160-4.5 MCG/ACT inhaler Inhale 2 puffs in the morning and at bedtime. Rinse mouth with water after use to reduce aftertaste and incidence of candidiasis. Do not swallow. 10.2 g 5 Active Spacer/Aero-Hold ing Chambers (OptiChamber Luz) misc 1 each every 4 (four) hours if needed (asthma). 1 each Active metFORMIN XR (Glucophage-XR) 500 MG 24 hr tablet TAKE 1 TABLET BY MOUTH TWICE DAILY IN THE MORNING AND IN THE EVENING WITH MEALS 180 tablet 1 Active magnesium oxide (Mag-Ox) 400 mg tabletIndication s:Chronic daily headache Take 1 tablet (400 mg) by mouth Once per day. 90 tablet 1 Active apixaban (Eliquis) 2.5 MG tabletIndication s:History of pulmonary embolism TAKE 1 TABLET BY MOUTH TWICE DAILY IN THE MORNING AND IN THE EVENING 60 tablet 3 Active fluticasone (Flonase) 50 MCG/ACT nasal sprayIndications :Allergic rhinitis, unspecified seasonality, unspecified trigger SPRAY 1 SPRAY IN EACH NOSTRIL TWICE DAILY 48 g 1 Active Continuous Glucose Purse Framer (FreeStyle Dagmar 2 [place]) deviceIndication s:Type 2 diabetes mellitus with hyperlipidemia (CMS/HCC) ([facility]) Scan sensor every 8 hours 1 each Active Continuous Glucose Sensor (FreeStyle Dagmar 2 Sensor) miscIndications: Type 2 diabetes mellitus with hyperlipidemia (CMS/HCC) ([facility]) Apply 1 sensor every 14 days 2 each Active glucose blood (FreeStyle Precision Nader Test) test stripIndications :Type 2 diabetes mellitus with hyperlipidemia (CMS/HCC) ([facility]) Use to test blood sugar 3 times daily 100 each 12 024 2024 Active docusate sodium (Colace) 100 MG capsule TAKE 1 CAPSULE BY MOUTH EVERY DAY FOR CONSTIPATION Active esomeprazole (NexIUM) [address] capsule Take 1 capsule by mouth Once per day. Active famotidine (Pepcid) 40 MG tablet Take 40 mg by mouth at bedtime. Active metoclopramide (Reglan) 5 MG tablet TAKE 1 TABLET BY MOUTH FOUR TIMES DAILY BEFORE MEALS AND AT BEDTIME Active chlorhexidine (Peridex) 0.12 % solution Swish 15 mL morning and night for 1 minute. Spit, do not swallow. Do not eat or drink for 30 minutes following use. 473 mL Active lidocaine (Lidoderm) 5 % patchIndications :Neck pain APPLY 1 PATCH TOPICALLY TO SKIN, LEAVE ON FOR 12 HOURS AND OFF FOR 12 HOURS DIRECTED 30 patch 2 Active metoprolol succinate XL (Toprol-XL) 50 MG 24 hr tabletIndication s:Hypertension associated with diabetes (CMS/HCC) ([facility]) TAKE 1 TABLET BY MOUTH EVERY MORNING DO NOT BREAK, CRUSH, DISSOLVE OR CHEW 90 tablet 1 025 Active gabapentin (Neurontin) 300 MG capsule TAKE 2 CAPSULES BY MOUTH THREE TIMES DAILY IN THE MORNING, EVENING AND BEDTIME 180 capsule 025 Active sertraline (Zoloft) 100 MG tablet Take 1 tablet by mouth once daily Active sodium chloride (Ebro) 0.65 % nasal sprayIndications :Nasal congestion 2 sprays into each nostril twice daily 30 mL 3 025 Active buPROPion SR (Wellbutrin SR) 100 MG 12 hr tabletIndication s:Mixed anxiety and depressive disorder TAKE 1 TABLET BY MOUTH EVERY MORNING 30 tablet 2 025 Active cholecalciferol VITAMIN D (Vitamin D-3) 50 MCG (1999 UT) tablet TAKE 1 TABLET BY MOUTH EVERY MORNING 90 tablet 1 025 Active semaglutide (Ozempic, 1 MG/DOSE,) 2 MG/1.5ML solution pen-injectorIndi cations:Type 2 diabetes mellitus with hyperlipidemia (CMS/HCC) ([facility]) Inject 1 mg under the skin 1 (one) time per week. 3 mL 3 025 Active pioglitazone (Actos) 30 MG tabletIndication s:Type 2 diabetes mellitus with hyperlipidemia (CMS/HCC) ([facility]) Take 1 tablet (30 mg) by mouth Once per day. 90 tablet 3 025 Active insulin glargine (Lantus SoloStar) 100 UNIT/ML penIndications:T ype 2 diabetes mellitus with hyperlipidemia (CMS/HCC) ([facility]) INJECT SUBCUTANEOUSLY 48 UNITS ONCE DAILY 025 Active insulin aspart FlexPen (NovoLOG) 100 UNIT/ML penIndications:T ype 2 diabetes mellitus with hyperlipidemia (CMS/HCC) ([facility]) INJECT SUBCUTANEOUSLY 10 UNITS BEFORE BREAKFAST AND 20 UNITS BEFORE DINNER. DO NOT USE IF SKIPPING MEAL. 15 mL 3 025 Active glucose blood (FREESTYLE LITE) test strip 1 each by Other route 4 times daily. Test blood sugar 4 times a day 100 each 11 023 2024 Discontinued(M ed list cleanup (will not trigger notification to Pharmacy)) sodium chloride (Ebro) 0.65 % nasal sprayIndications :Nasal congestion Administer 1 spray into each nostril if needed for congestion. 15 mL 2 024 2024 Discontinued(R eorder (will not trigger notification to Pharmacy)) furosemide (Lasix) 20 MG tabletIndication s:Bilateral lower extremity edema TAKE 1 TABLET BY MOUTH EVERY MORNING NEEDED FOR SWELLING 90 tablet 3 024 2024 Discontinued(T herapy completed) cholecalciferol VITAMIN D (Vitamin D-3) 50 MCG (1999 UT) tablet TAKE 1 TABLET BY MOUTH EVERY MORNING 90 tablet 1 024 2024 Discontinued pioglitazone (Actos) 15 MG tabletIndication s:Type 2 diabetes mellitus with hyperlipidemia (CMS/HCC) (CMS/HCC) TAKE 1 TABLET BY MOUTH EVERY MORNING 90 tablet 1 024 2024 Discontinued buPROPion SR (Wellbutrin SR) 100 MG 12 hr tabletIndication s:Mixed anxiety and depressive disorder TAKE 1 TABLET BY MOUTH EVERY MORNING 30 tablet 2 024 2024 Discontinued Ozempic, 1 MG/DOSE, 4 MG/3ML solution pen-injector Inject 1 MG SUBCUTANEOUSLY EVERY 7 DAYS IN THE ABDOMEN, THIGHS OR UPPER ARM. ROTATE INJECTION SITES. 024 2024 Discontinued(D ose adjustment) insulin aspart FlexPen (NovoLOG) 100 UNIT/ML penIndications:T ype 2 diabetes mellitus with hyperlipidemia (CMS/HCC) (CMS/HCC) INJECT SUBCUTANEOUSLY 8 UNITS BEFORE BREAKFAST AND 16 UNITS BEFORE DINNER. DO NOT USE IF SKIPPING MEAL. 15 mL 5 025 2024 Discontinued insulin glargine (Lantus SoloStar) 100 UNIT/ML penIndications:T ype 2 diabetes mellitus with hyperlipidemia (CMS/HCC) (CMS/HCC) INJECT SUBCUTANEOUSLY 54 UNITS ONCE DAILY 15 mL 5 025 2024 Discontinued insulin aspart FlexPen (NovoLOG) 100 UNIT/ML penIndications:T ype 2 diabetes mellitus with hyperlipidemia (CMS/HCC) (CMS/HCC) INJECT SUBCUTANEOUSLY 8 UNITS BEFORE BREAKFAST AND 18 UNITS BEFORE DINNER. DO NOT USE IF SKIPPING MEAL. 025 2024 Discontinued acetaminophen (Tylenol 8 Hour) 650 MG ER tablet Take 1 tablet (650 mg) by mouth every 8 (eight) hours if needed for moderate pain for up to 10 days. Do not crush, chew, or split. 15 tablet 025 2024 Semaglutide, 2 MG/DOSE, (Ozempic, 2 MG/DOSE,) 8 MG/3ML solution pen-injectorIndi cations:Type 2 diabetes mellitus with hyperlipidemia (CMS/HCC) (CMS/[facility]) Inject 0.75 mL (2 mg) under the skin 1 (one) time per week. 3 mL 1 025 2024 Discontinued(S angela effects) insulin glargine (Lantus SoloStar) 100 UNIT/ML penIndications:T ype 2 diabetes mellitus with hyperlipidemia (CMS/HCC) (CMS/[facility]) INJECT SUBCUTANEOUSLY 44 UNITS ONCE DAILY 15 mL 3 025 2024 Discontinued pioglitazone (Actos) 15 MG tabletIndication s:Type 2 diabetes mellitus with hyperlipidemia (CMS/HCC) (CMS/[facility]) TAKE 1 TABLET BY MOUTH EVERY MORNING 90 tablet 1 025 2024 Discontinued(D ose adjustment) insulin aspart FlexPen (NovoLOG) 100 UNIT/ML penIndications:T ype 2 diabetes mellitus with hyperlipidemia (CMS/HCC) ([facility]) INJECT SUBCUTANEOUSLY 6 UNITS BEFORE BREAKFAST AND 14 UNITS BEFORE DINNER. DO NOT USE IF SKIPPING MEAL. 025 2024 Discontinued(D ose adjustment) Hospital, Clinic, or Other Facility Administered Medication Ordered Dose Route Frequency Start Date End Date Status predniSONE (Deltasone) tablet 40 mgIndications:Mild intermittent asthma with exacerbation 40 mg PO Daily 05/08/2024 Active albuterol 108 (90 Base) MCG/ACT inhaler 2 puffIndications:Mild intermittent asthma with exacerbation 2 puff IN Every 4 hours PRN 05/08/2024 Active Active Problems Problem Noted Date Diagnosed Date Dental plaque 11/14/2024 Bone spicules of jaw 11/14/2024 Dizziness 11/12/2024 Overview (11/12/2024): chronic recurrent. CT previous ordered and pending. Has been evaluated in past w/ neuro I believe, will cont to follow. Alveolitis of maxilla 10/30/2024 CAD (coronary artery disease) 10/29/2024 Osteophyte of cervical spine 10/29/2024 Gastroparesis 10/29/2024 Elevated LFTs 10/29/2024 Dyslipidemia 10/29/2024 Diabetic polyneuropathy asso ciated with type 2 diabetes mellitus 10/29/2024 Constipation 10/29/2024 Acute gastritis 10/29/2024 Extensive root caries lesions involving dentin 1 12/25/2023 Current use of anticoagulant therapy 09/24/2024 Personal history of PE (pulmonary embolism) 09/07 Stented coronary artery 09/24/2024 History of cervical corpectomy 08/17/2024 Overview (08/17/2024): had Dysphagia due to excessive bone formation of the C4 and C5 vertebral bodies, now s/p Partial corpectomy C4 and C5 08/02/24 Chronic kidney disease 06/02/2015 Mixed anxiety and depressive disorder 09/30/2014 Type 2 diabetes mellitus with hyperlipidemia (CM S/HCC) 07/12/2013 Hypertension 07/12/2013 Atherosclerosis of coronary artery 04/17/2013 Old myocardial infarction 04/17/2013 Gastroesophageal reflux disease 08/01/2012 Allergic rhinitis 04/24/2012 Hyperlipidemia 04/24/2012 Asthma 03/30/2012 Chronic obstructive lung disease 03/30/2012 Disorder of skeletal muscle 03/30/2012 Obesity 03/30/2012 Encounters Date Type Department Care Team Description 12/14/2024 Refill [facility] [address] [place] [address] Neil Bernard ANP 12/14/2024 Patient Outreach [facility] [address] [place] [address] Neil Bernard ANP Care Coordination (Outreach) 12/13/2024 Telephone [facility] [address], [place] [phone] Neil Bernard ANP Durable Medical Equipment (Shower chair) 12/13/2024 Refill [facility] [address] [place] [address] Neil Bernard ANP Type 2 diabetes mellitus with hyperlipidemia (CMS/HCC) (CMS/HCC) 12/11/2024 1:00 PM EST Office Visit [facility] [address] [facility] [place] [address] Pardeep, Shreya, OD Type 2 diabetes mellitus without complication, with long-term current use of insulin ([facility]) (Primary Dx); Adult vitelliform macular dystrophy; Dry eyes; Presbyopia; Nuclear sclerotic cataract of both eyes; 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 12/10/2024 9:00 AM EST Immunization [facility] [address] [place] [address] Nano Baxter LPN Encounter for immunization (Primary Dx) 12/10/[address] [address] Kesha Wilkinson [place] February12/10/[address] [address] Vaishali Minor, Leonidas 12/10/2024 Travel 12/08/2024 Refill [facility] [address] [place] [address] Neil Bernard ANP Mixed anxiety and depressive disorder 11/30/2024 12:00 PM EST Office Visit [facility] D[facility] [address] [place] [address] Juarez Damon, CHRIS Bone spicules of jaw (Primary Dx) 11/30/2024 11:30 AM EST Office Visit [facility] [address] [place] [address] Ferreira-ReidSadaf, ANNIES Alveolitis of maxilla (Primary Dx) 11/30/2024 Patient Outreach [facility] [address] [place], [place] [phone] Neil Bernard ANP Care Coordination (Outreach) 11/23/2024 1:00 PM EST Telemedicine [address] [address] Neil Bernard ANP Dizziness (Primary Dx); Chronic maxillary sinusitis 11/23/2024 Travel 11/23/[address] [address] Taylor Dai RN Results 11/23/2024 Orders Only [facility] [address] [place] [address] Neil Bernard ANP Chronic maxillary sinusitis (Primary Dx); Nasal congestion 11/20/2024 2:30 PM EST Telemedicine [facility] [address] [place] [phone] Vaishali Minor, PharmJeison Type 2 diabetes mellitus with hyperlipidemia (CMS/[facility]) ([facility]) (Primary Dx) 11/15/2024 Patient Outreach [facility] [address] [place] [address] Neil Bernard ANP Care Coordination (Outreach) 11/15/2024 Refill [facility] [address] [place] [phone] Neil Bernard ANP 11/14/2024 1:00 PM EST Office Visit [facility] [address] [place] [address] Linsey Dawkins Dental calculus (Primary Dx); Dental plaque; Bone spicules of jaw 11/13/2024 Refill [facility] [address] [place] [address] Neil Bernard ANP Hypertension associated with diabetes (CMS/[facility]) (CMS/[facility]) 11/12/2024 2:20 PM EST Office Visit [facility] [address] [place] [phone] Neil Bernard ANP Hypotension, unspecified hypotension type (Primary Dx) 11/12/2024 Travel 11/11/2024 Refill [facility] [address] [place] [address] Neil Bernard ANP Neck pain 10/30/2024 9:30 AM EST Office Visit [facility] [address] [place] [phone] Juarez Damon DDS Alveolitis of maxilla (Primary Dx) 10/30/2024 Patient Outreach [facility] [address] [place] [address] Neil Bernard ANP Care Coordination (Outreach) 10/29/2024 Telephone [facility] [address] [place] [address] Vaishali Minor, PharmD 10/26/2024 Telephone [facility] [address] [place] [address] Vaishali Minor, Leonidas 10/26/2024 Travel 10/25/2024 2:15 PM EST Office Visit [facility] [address] [place] [address] Neil Bernard ANP Type 2 diabetes mellitus with hyperlipidemia (CMS/HCC) (CMS/HCC) (Primary Dx); Primary hypertension; Dizziness 10/25/2024 Travel 10/24/2024 1:30 PM EST Office Visit [facility] [address] [place] [address] Juarez Damon DDS Extensive root caries lesions involving dentin (Primary Dx) 10/24/2024 Patient Outreach [facility] [address] [place] [address] Neil Bernard ANP Care Coordination (Outreach) 10/22/2024 Telephone [facility] [address] [place] [phone] 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, twisting machine operator; CGM Initiation 10/19/2024 Refill [facility] [address] [place] [address] Neil Bernard ANP 10/18/2024 Patient Outreach [facility] [address] [place] [address] Neil Bernard ANP Care Coordination (Outreach) 10/18/2024 Telephone [facility] [address] [place] [address] Sepideh Clements RN Care Coordination ([facility] initial assessment/ enrollment) 10/16/2024 Patient Outreach [facility] [address] [place] [address] Neil eBrnard ANP Care Coordination (Outreach) 10/15/2024 Refill [facility] [address] [place] [phone] Neil Bernard ANP Allergic rhinitis, unspecified seasonality, unspecified trigger 10/14/2024 Refill [facility] [address] [place] [address] Neil Bernard ANP History of pulmonary embolism; Allergic rhinitis, unspecified seasonality, unspecified trigger 10/12/2024 Telephone [facility] [place] [address] Neil Bernard ANP CRITICAL RESULT 10/10/2024 Patient Outreach [facility] [place] [address] Neil Bernard ANP Care Coordination (Outreach) 10/10/2024 Patient Outreach [facility] [place] [address] 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, stress analyst Of Care (Tcm) 10/09/2024 Orders Only GENERIC EXTERNAL DATA DEPARTMENT Provider, Generic External Data 10/09/2024 Telephone [facility] [place] [address] Neil Bernard ANP Nurse Triage; Prior Authorization 10/08/2024 Telephone [facility] [place] [address] Veronica Gupta RN Results 10/04/2024 Orders Only GENERIC EXTERNAL DATA DEPARTMENT Provider, Generic External Data 10/01/2024 11:15 AM EST Office Visit [facility] [place] [address] Neil Bernard ANP Chronic daily headache (Primary Dx); Type 2 diabetes mellitus with hyperlipidemia ([facility]) ([facility]) 10/01/2024 Travel 10/01/[address] [address] Neil Bernard ANP Nurse Triage 09/26/[address] [address] Veronica Gupta, MENDEL Paperwork/Forms 09/24/2024 1:00 PM EST Office Visit [facility] [address] [place] [address] Linsey Dawkins Dental plaque (Primary Dx); Dental calculus 09/24/2024 Refill [facility] [place] [address] Neil Bernard ANP 09/20/2024 Refill [facility] [place] [address] Deb Grant RN 09/18/2024 11:30 AM EST Office Visit [facility] [address] [place] [address] Adrienne Benson DO Type 2 diabetes mellitus with hyperlipidemia (CMS/HCC) ([facility]/HCC) (Primary Dx); Vaginal itching; Acute UTI 09/18/2024 Orders Only [facility] [address] [place] [address] Adrienne Benson DO 09/18/2024 Telephone [facility] [address] [place] [address] HEAD ORDER 09/18/2024 Travel 09/17/2024 Orders Only [facility] External Provider, [facility] 09/17/2024 Refill [facility] [address] [place] [address] Neil Benrard ANP Mixed anxiety and depressive disorder from Last 3 Months Immunizations Name Administration Dates Next Due Hep B, adult 06/26/2012,06/18/2003,05/16/2003 Influenza injectable quadriv alent IIV4 with preservative 09/13/2016 Influenza injectable quadriv alent preservative free 11/18/2023,09/03/2022,09/17/2020,10/18 Influenza, IIV3, injectable 09/09/2014, 1 Influenza, Injectable, MDCK, preservative free 10/03/2015 Influenza, Split (incl. bethanie fied surface antigen) 07/12/2013,08/22/2012 Influenza, seasonal, injecta ble, preservative free 08/17/2024 Moderna Covid-19 Vaccine 12+ 03/16/2022,02/19/20 21,01/21/2021 Pfizer Covid-19 Vaccine 12+ 08/17/2024 Pneumococcal Conjugate PCV 20 12/10/2024 Pneumococcal Polysaccharide PPSV23 06/26/2012 TD (adult), 2 Lf tetanus tox oid, preservative free, adsorbed 11/18/2023,05/19/2006 Tdap 07/12/2013 Zoster, Recombinant 07/28/2020,11/08/2019 Social History Tobacco Use Types Packs/Day Years Used Date Smoking Tobacco: Former Cigarettes Smokeless Tobacco: Never Tobacco Cessation:Counseling Given: Not Answered Alcohol Use Standard Drinks/Week Comments Never 0 [...] not to disclose 2021 10:17 AM EDT Last Filed Vital Signs Vital Sign Reading Time Taken Comments Blood Pressure 118/60 12/10/2024 11:45 AM EST Pulse 97 12/10/2024 11:45 AM EST Temperature 36.1 ??C (97 ??F) 11/12/2024 2:13 PM EST Respiratory Rate 20 11/12/2024 2:13 PM EST Oxygen Saturation 98% 11/12/2024 2:13 PM EST Inhaled Oxygen Concentration - - Weight 66.7 kg (147 lb) 10/25/2024 2:34 PM EST Height 154.9 cm (5' 1 ) 09/18/2024 11:05 AM EST Body Mass Index 27.78 09/18/2024 11:05 AM EST Plan of Treatment Upcoming Encounters Date Type Department Care Team (Late st Contact Info) Description 01/01/2025 2:30 PM EST Office Visit [facility] [address] [place] [address] Juarez Damon, DDS [address] [place] [address] 01/08/2025 11:00 AM EST Medication Management [address] [address] Vaishali Minor, PharmD [address] [place] [address] 02/19/2025 1:00 PM EDT Office Visit [facility] [address] [place] [address] Neil Bernard ANP [address] [place] [address] 05/20/2025 1:00 PM EDT Office Visit [facility] [address] [place] [address] Linsey Dawkins Health Maintenance Due Date Last Done Comments CT Colonography 1961 FIT DNA/Cologuard 1961 FIT 1961 FOBT 1961 HIV Screening 1961 Sigmoidoscopy 1961 Diabetes: Foot Exam 1971 Hepatitis C Screening 1979 Pap Smear 1982 HPV/Cotest 1991 RSV Patients and Patients Aged 60 years or older (1 - Risk 60-74 years 1-dose series) 2021 Lipid Panel 12/07/2024 12/07/2023, 03/2 01/2022, 01/27/2021 Diabetes: Hemoglobin A1C 02/10/2025 025, 08/17/2024, 05/15/2024, Additional history exists Cervical Cancer Screening 02/14/2025 Po stponed from 1991 (Patient Refused) Dental Oral Exam 03/25/2025 09/24/2024 Colonoscopy 04/15/2025 04/15/2015 Colorectal Cancer Screening 04/15/2025 Dental Prophylaxis 05/15/2025 11/14/2024 Mammogram 06/06/2025 06/06/2024, 05/09, 12/03/2022, Additional history exists Dental X-Ray: Bitewings 09/25/2025 09/24/2024 Alcohol/Substance Use Screening 10/01/2025 10/01/2024 SDOH Screening 10/10/2025 10/10/2024 Diabetes: Urine Protein Screening 10/12/2025 10/12/2024, 09/03/2022, 08/04/2021 Depression Screening 11/23/2025 11/23/2024, 11/23/19 Tobacco Screening 11/30/2025 11/30/2024 Eye Exam 12/11/2026 12/11/2024, 02/2025, 12/11/2024, Additional history exists Dental X-Ray: Full Mouth 09/25/2027 09/24/2024 DTaP/Tdap/Td Vaccines (3 - Td or Tdap) 11/18/2033 11/18/2023, 07/12/2013, 05/19/2006 Hepatitis B Vaccines Completed 06/26/2012, 06/18/2003, 05/16/2003 Zoster Vaccines Completed 07/28/2020, 11/08/2019 COVID-19 Vaccine Completed 08/17/2024, 08/2022, 02/18/2021, Additional history exists Influenza Vaccine Completed 08/17/2024, , 09/03/2022, Additional history exists Pneumococcal Vaccine: 50+ Years Completed 12/10/2024, 06/26/2012 HIB Vaccines Aged Out No longer eligi ble based on patient's age to complete this topic HPV Vaccines Aged Out No longer eligi ble based on patient's age to complete this topic Hepatitis A Vaccines Aged Out No long er eligible based on patient's age to complete this topic IPV Vaccines Aged Out No longer eligi ble based on patient's age to complete this topic Meningococcal Vaccine Aged Out No laura adrianna eligible based on patient's age to complete this topic RSV under 20 months Aged Out No longe r eligible based on patient's age to complete this topic Rotavirus Vaccines Aged Out No longer eligible based on patient's age to complete this topic Procedures Procedure Name Priority Date/Time Associated Diagnosis Comments NO CHARGE VISIT Routine 11/30/2024 12:00 PM EST INTRAORAL - PERIAPICAL FIRST RADIOGRAPHIC IMAGE Routine 11/30/2024 11:30 AM EST Alveolitis of maxilla LIMITED ORAL EVALUATION - PROBLEM FOCUSED Routine 11/30/2024 11:30 AM EST Alveolitis of maxilla INTRAORAL - PERIAPICAL FIRST RADIOGRAPHIC IMAGE Routine 11/14/2024 1:00 PM EST ADJUNCTIVE GENERAL SERVICES - PROFESSIONAL VISITS - CASE PRESENTATION, SUBSEQUENT TO DETAILED AND EXTENSIVE TREATMENT PLANNING Routine 11/14/2024 1:00 PM EST ORAL HYGIENE INSTRUCTIONS Routine 11/14/2024 1:00 PM EST Dental calculus Dental plaque PROPHYLAXIS - ADULT Routine 11/14/2024 1 :00 PM EST Dental calculus Dental plaque POCT GLYCATED HEMOGLOBIN, TOTAL Routine 11/12/2024 1:38 PM EST Type 2 diabetes mellitus with hyperlipidemia (CMS/HCC) (CMS/HCC) NO CHARGE VISIT Routine 10/30/2024 9:30 AM EST INTRAORAL - PERIAPICAL FIRST RADIOGRAPHIC IMAGE Routine 10/30/2024 9:30 AM EST UR ORAL & MAXILLOFACIAL SURGERY - ALVEOLOPLASTY - PREPARATION OF RIDGE - ALVEOLOPLASTY IN CONJUNCTION WITH EXTRACTIONS - ONE TO THREE TEETH OR TOOTH SPACES, PER QUADRANT Routine 10/24/2024 1:30 PM EST UL ORAL & MAXILLOFACIAL SURGERY - ALVEOLOPLASTY - PREPARATION OF RIDGE - ALVEOLOPLASTY IN CONJUNCTION WITH EXTRACTIONS - ONE TO THREE TEETH OR TOOTH SPACES, PER QUADRANT Routine 10/24/2024 1:30 PM EST 11 EXTRACTION, ERUPTED TOOTH REQUIRING REMOVAL OF BONE AND/OR SECTIONING OF TOOTH, AND INCLUDING ELEVATION OF MUCOPERIOSTEAL FLAP IF INDICATED Routine 10/24/2024 1:30 PM EST 6 EXTRACTION, ERUPTED TOOTH REQUIRING REMOVAL OF BONE AND/OR SECTIONING OF TOOTH, AND INCLUDING ELEVATION OF MUCOPERIOSTEAL FLAP IF INDICATED Routine 10/24/2024 1:30 PM EST 1 EXTRACTION, ERUPTED TOOTH OR EXPOSED ROOT (ELEVATION AND/OR FORCEPS REMOVAL) Routine 10/24/2024 1:30 PM EST 15 EXTRACTION, ERUPTED TOOTH OR EXPOSED ROOT (ELEVATION AND/OR FORCEPS REMOVAL) Routine 10/24/2024 1:30 PM EST 7 EXTRACTION, ERUPTED TOOTH OR EXPOSED ROOT (ELEVATION AND/OR FORCEPS REMOVAL) Routine 10/24/2024 1:30 PM EST 8 EXTRACTION, ERUPTED TOOTH OR EXPOSED ROOT (ELEVATION AND/OR FORCEPS REMOVAL) Routine 10/24/2024 1:30 PM EST 9 EXTRACTION, ERUPTED TOOTH OR EXPOSED ROOT (ELEVATION AND/OR FORCEPS REMOVAL) Routine 10/24/2024 1:[address] HEAD WO CONTRAST Routine 10/12/2024 1:24 PM EST Chronic daily headache ALBUMIN, RANDOM URINE W/CREATININE Routine 10/12/2024 9:52 AM EST SANDRINE (acute kidney injury) (CMS/HCC) Type 2 diabetes mellitus with hyperlipidemia (CMS/HCC) (CMS/HCC) BASIC METABOLIC PANEL Routine 10/12/2024 9:52 AM EST SANDRINE (acute kidney injury) (CMS/HCC) Type 2 diabetes mellitus with hyperlipidemia (CMS/HCC) (CMS/HCC) GLUCOSE, WHOLE BLOOD Routine 10/09/2024 6:04 PM EST VENOUS BLOOD GAS Routine 10/09/2024 3:08 PM EST URINALYSIS, COMPLETE, WITH REFLEX TO CULTURE Routine 10/09/2024 3:04 PM EST HOLD GREEN GEL Routine 10/09/2024 3:02 PM EST HOLD GREEN GEL Routine 10/09/2024 3:02 PM EST LIPASE Routine 10/09/2024 3:02 PM EST MAGNESIUM Routine 10/09/2024 3:02 PM EST COMPREHENSIVE METABOLIC PANEL Routine 10/09/2024 3:02 PM EST BETA-HYDROXYBUTYRATE Routine 10/09/2024 3:02 PM EST CBC WITH AUTO DIFFERENTIAL Routine 10/09/2024 3:02 PM EST GLUCOSE, WHOLE BLOOD Routine 10/09/2024 2:16 PM EST XR CERVICAL SPINE 4V Routine 10/09/2024 1:24 PM EST CULTURE, URINE, ROUTINE Routine 10/09/2024 12:00 AM EST COMPREHENSIVE METABOLIC PANEL Routine 10/04/2024 9:41 PM EST CBC WITH AUTO DIFFERENTIAL Routine 10/04/2024 9:41 PM EST GLUCOSE, WHOLE BLOOD Routine 10/04/2024 9:36 PM EST PERIODIC ORAL EVALUATION - ESTABLISHED PATIENT Routine 09/24/2024 1:00 PM EST ORAL HYGIENE INSTRUCTIONS Routine 09/24/2024 1:00 PM EST Dental plaque Dental calculus DIAGNOSTIC - DIAGNOSTIC IMAGING - INTRAORAL - COMPREHENSIVE SERIES OF RADIOGRAPHIC IMAGES Routine 09/24/2024 1:00 PM EST ADJUNCTIVE GENERAL SERVICES - PROFESSIONAL VISITS - CASE PRESENTATION, SUBSEQUENT TO DETAILED AND EXTENSIVE TREATMENT PLANNING Routine 09/24/2024 1:00 PM EST POCT URINALYSIS DIPSTICK Routine 09/18/2024 11:41 AM EST Type 2 diabetes mellitus with hyperlipidemia (CMS/HCC) ([facility]) BACTERIAL VAGINOSIS PANEL Routine 09/18/2024 12:00 AM EST CHLAMYDIA/N. GONORRHOEAE RNA, TMA, UROGENITAL Routine 09/18/2024 12:00 AM EST Vaginal itching Acute UTI CULTURE, URINE, ROUTINE Routine 09/18/2024 12:00 AM EST Vaginal itching Acute UTI BASIC METABOLIC PANEL Routine 09/17/2024 7:41 PM EST GLUCOSE, WHOLE BLOOD Routine 09/17/2024 7:26 PM EST GLUCOSE, WHOLE BLOOD Routine 09/17/2024 6:00 PM EST XR CHEST 1 VIEW Routine 09/17/2024 3:03 PM EST BI MAMMOGRAM SCREENING TOMOSYNTHESIS BILATERAL Routine 06/06/2024 1:12 PM EDT LIPID PANEL, STANDARD Routine 12/07/2023 10:20 AM EST Type 2 diabetes mellitus with hyperlipidemia (CMS/HCC) HM COLONOSCOPY Routine 04/15/2015 from Last 3 Months or Most Recently Relevant to Health Maintenance Results * (ABNORMAL) POCT A1C (11/12/2024 1:38 PM EST) Hemoglobin A1C 9.4(A) 4.0 - 6.0 % QC Media Lot # [id number] Lot# Expiration Date ,[id number] Blood 11/12/2024 1:38 PM EST Neil CALDWELL POINT OF CARE TEST ENTER/EDIT OR DERABLES Final Result * CT Head w/o Contrast (10/12/2024 1:24 PM EST) Anatomical Region Laterality Modality Head, Neck Computed Tomogra phy 10/12/2024 1:24 PM EST Narrative 11/21/2024 2:28 AM EST ? [facility] ?[address] ?[place] [address] ? CT Scan Report ? Signed ? Patient: Louis,Joelle I ?MR#: [id number] ?? [id number] ? : 1960 ?Acct:[id number] ? Age/Sex: 64 / F ?ADM Date: 12/06/24 ? Loc: HO.CT ? 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 Ordering Physician: NEIL BERNARD NP ?? Date of Service: 10/12/24 ?? Procedure(s): CT head/brain wo IV con ?? Accession Number(s): [id number] ? cc: NEIL BERNARD NP ? Report Number: ?? [id number]: Total DLP = ??615.00 mGy-cm ?? EXAMINATION: ?? CT HEAD WITHOUT CONTRAST ? CLINICAL INFORMATION: ?? Chronic daily headache. Dizziness. ? COMPARISON: ?? None available. ? TECHNIQUE: ?? Contiguous axial imaging was performed from the skull base to vertex ?? without intravenous administration of contrast. ? This CT examination was performed using dose optimization techniques as ?? appropriate, variously including the following: ?? *Automated exposure control. ?? *Adjustment of mA and/or kV according to patient size (this includes ?? techniques or standardized protocols for targeted exams where dose is ?? matched to indication/reason for exam; i.e. extremities or head). ?? *Use of iterative reconstruction technique. ? DLP: ?? 615 mGy-cm ? FINDINGS: ?? There is no evidence of acute intracranial hemorrhage or edematous ?? territorial infarction. [place]-white matter differentiation is preserved. ?? Scattered and partially confluent hypoattenuation in the ?? periventricular and deep white matter are consistent with moderate ?? microangiopathy. Proportional prominence of the ventricles and sulcal ?? spaces without evidence of obstructive hydrocephalus. Mild expansion of ?? the sella turcica with partial flattening of the pituitary gland. The ?? suprasellar cistern remains widely patent. Normal positioning of the ?? cerebellar tonsils. No abnormal mass effect or midline shift. No ?? extra-axial fluid collections. Calcific atherosclerotic disease of the ?? intracranial internal carotid and vertebral arteries. No hyperdense ?? vessel sign. ? No acute soft tissue or osseous abnormalities. Moderate mucosal ?? thickening of the left maxillary sinus. Mild mucosal thickening of the ?? remaining paranasal sinuses. The mastoid air cells and middle ear ?? cavities are clear. Moderate degenerative arthropathy of the left ?? greater than right temporomandibular joints. ? CT/CT head/brain wo IV con ?? IMPRESSION: ?? 1. ??No evidence of acute intracranial hemorrhage or edematous ?? territorial infarction. ?? 2. ??Moderate underlying microangiopathy and generalized cerebral volume ?? loss. ?? 3. ??Partially visualized moderate left maxillary sinus disease. ? Electronically signed by: ??Javier Gonzalez DO ??11/21/2024 02:25 AM EST RP ? Dictated By: ?Jassi Gonzalez DO ? Signed By: ?<Electronically signed by Jassi Gonzalez DO in OV> ? 11/21/24 0225 ? DD/ 1324 ? TD/TT: 10/12/24 1334 ? [employer] Lead: HANNA ? Procedure Note Donotuseinterpreter, Image - 11/21/[address] [place] [id number] [address] Scan Report Signed Patient: Joelle Myers IMR#: [id number] : 1Acct:[id number] Age/Sex: 64 / FADM Date: 10/12/24 Loc: HO.CT Attending Dr: Neil Bernard NP Ordering Physician: NEIL BERNARD NP Date of Service: 10/12/24 Procedure(s): CT head/brain wo IV con Accession Number(s): [id number] cc: NEIL BERNARD NP Report Number: [id number]: Total DLP = 615.00 mGy-cm EXAMINATION: CT [...] Javier Gonzalez DO 11/21/2024 02:25 AM EST Dictated By: Jassi Gonzalez DO Signed By: <Electronically signed by Jassi Gonzalez DO in OV> 11/21/24 0225 DD/ 1324 TD/TT: 10/12/24 1334 [employer] Lead: JL Neil CALDWELL IMG CT PROCEDURES Final Result * Albumin, Random Urine W/Creatinine (10/12/2024 9:52 AM EST) Creatinine, Urine 41.64 mg/dL [facility] Microalbumin Urine 6.0 mg/L [facility] Microalbum Creatinine Ratio Ur 14.4 <30 ug/mg cr [facility] Comment:Albumin/Creatinine R atio Reference Ranges: Normal: < 30 ug/mg creatinine Microalbuminuria: 30 - 300 ug/mg creatinineClinical Albuminuria: > 300 ug/mg creatinine Urine (Urine, Random) 10/12/2024 9:52 AM EST 10/12/2024 10:49 AM EST us Neil Bernard ANP LAB URINE ORDERABLES Final Resul t [facility] [address] [place] [phone] * (ABNORMAL) Basic Metabolic Panel (10/12/2024 9:52 AM EST) Only the most recent of2 resultswithin the time period is included. Sodium 137 135 - 145 mmol/L [facility] Potassium 4.2 3.3 - 5.1 mmol/L [facility] Chloride 102 96 - 108 mmol/L [facility] Carbon Dioxide 27 22 - 29 mmol/L [facility] Anion Gap 12 12 - 20 [facility] Urea Nitrogen (BUN) 19(H) 9 - 16 mg/dL [facility] Creatinine, Serum 1.33 0.5 - 1.4 mg/dL [facility] Estimated Glomerular Filt Rate 40 [facility] Comment:Chronic Kidney Disea se: Estimated GFR < 60 mL/min/1.41f0Rxalqn Kidney Disease: Estimated GFR < 15 mL/min/1.73m2 Glucose 390(HH) 60 - 115 mg/dL [facility] Comment:Critical value for t est(s): GLUR Results called to asha back by:ÁLVARO BETHEA Person calling: FIGUEROACELESTINETOMMY Date:10/12/2024 Time:12:05 Calcium 11.2(H) 8.4 - 10.2 mg/dL [facility] Blood Venous blood specimen / Unknown 10/12/2024 9:52 AM EST 10/12/2024 10:49 AM EST [facility] LAB BLOOD ORDERABLES Final Resul t [facility] [address] [place] [phone] * (ABNORMAL) Glucose, Whole Blood (10/09/2024 6:04 PM EST) Only the most recent of5 resultswithin the time period is included. Glucose, Whole Blood 289(H) 60 - 115 mg/dL [facility] Comment:METER #: [id number] 10/09/2024 6:04 PM EST 10/09/2024 6:07 PM EST Generic External Data Provider LAB BLOOD ORDERAB LES Final Result Performing Organization Address [facility] Co de Phone Number [facility] [address] [place] [address] [phone] * (ABNORMAL) VENOUS BLOOD GAS (10/09/2024 3:08 PM EST) VBG pH 7.36 7.32 - 7.43 [facility] Comment:METER #: [id number] additional_comment: Cbdelgadj VBG PCO2 65 mmHg [facility] Comment:METER #: [id number] additional_comment: Cbdelgadj VBG PO2 34 mmHg [facility] Comment:METER #: [id number] additional_comment: Cbdelgadj VBG Base Excess 9.7 mmol/L [facility] Comment:METER #: [id number] additional_comment: Cbdelgadj VBG HCO3 37(H) 22 - 26 mmol/L [facility] Comment:METER #: [id number] additional_comment: Cbdelgadj O2 Sat, Jer 54.0 % [facility] Comment:METER #: [id number] additional_comment: Cbdelgadj 10/09/2024 3:08 PM EST 10/09/2024 3:19 PM EST us Generic External Data Provider LAB BLOOD ORDERAB LES Final Result Performing Organization Address [facility] Co de Phone Number [facility] [address] [place] [address] [phone] * (ABNORMAL) Urinalysis, Complete, with Reflex to Culture (10/09/2024 3:04 PM EST) Color Urine Yellow [facility] Appearance Urine Clear [facility] PH 5.0 5.0 - 9.0 [facility] Glucose Urine UA >=1000(A) Negative mg/dL [facility] Urine Blood Negative Negative [facility] Specific [place] - Urine 1.015 1.005 - 1.025 [facility] Urine Protein Negative Neg-Trace mg/dL [facility] Urine Ketones Negative Negative mg/dL [facility] Nitrite Urine Negative Negative [facility] Leukocyte Esterase Urine Small (1+)(A) Negative [facility] RBC Urine 0-2 0 - 2 /HPF [facility] Urine WBC 6-10(A) 0 - 5 /HPF [facility] Urine Squamous Epithelial Cell 3-5 0 - 2 /HPF [facility] Urine Bacteria None Seen None Seen [facility] Hyaline Casts, Urine 3-5 0 - 2 /LPF [facility] 10/09/2024 3:04 PM EST 10/09/2024 3:07 PM EST Narrative [facility] - 10/09/2024 3:18 PM EST [id number], Clean Catch us Generic External Data Provider LAB URINE ORDERAB LES Final Result Performing Organization Address [facility]/ZIP Co de Phone Number [facility] [address] [place] [phone] * Hold Green Gel (10/09/2024 3:02 PM EST) Only the most recent of2 resultswithin the time period is included. Hold Green Gel See Note [facility] Comment:Specimen held untest ed for 24 hours; Call to requestChemistry testing. 10/09/2024 3:02 PM EST 10/09/2024 3:10 PM EST us Generic External Data Provider HISTORICAL/NON OR DERABLE LABS Final Result Performing Organization Address [facility]/ZIP Co de Phone Number [facility] [address] [place] [phone] * Beta-Hydroxybutyrate (10/09/2024 3:02 PM EST) Pathologist [facility] Beta-Hydroxybut yrate 0.10 0.02 - 0.27 mmol/L [facility] 10/09/2024 3:02 PM EST 10/09/2024 3:07 PM EST us Generic External Data Provider LAB BLOOD ORDERAB LES Final Result Performing Organization Address City/State/[facility] Co de Phone Number [facility] [address] [place] [phone] * CBC auto differential (10/09/2024 3:02 PM EST) Only the most recent of2 resultswithin the time period is included. [facility] White Blood Count 7.3 4.8 - 10.8 X10*3/uL [facility] Red Blood Count 4.36 4.20 - 5.50 X10*6/uL [facility] Hemoglobin 13.0 12.0 - 16.0 g/dl [facility] Hematocrit 37.5 37.0 - 47.0 % [facility] Mean Corpuscular Volume 86.0 80.0 - 98.0 fL [facility] Mean Corpuscular Hemoglobin 29.8 27.0 - 33.0 pg [facility] Mean Corpuscular HGB Conc 34.7 31.0 - 35.0 g/dl [facility] Red Cell Distribution Width 12.1 11.0 - 16.0 % [facility] Platelet Count 277 160 - 400 X10*3/uL [facility] Mean Platelet Volume 11.3 9.4 - 12.3 fL [facility] Neutrophils Percent Auto 60.5 45 - 73 % [facility] Imm Gran Pct Auto 0.3 0.0 - 0.4 % [facility] Lymphocytes Percent Auto 30.2 20 - 40 % [facility] Monocytes Percent Auto 7.0 2 - 11 % [facility] Eosinophils Percent Auto 1.5 0 - 4 % [facility] Basophils Percent Auto 0.5 0 - 2 % [facility] NRBC Pct Auto 0.0 0.0 - 0.2 /100WBC [facility] Neutrophils Absolute Auto 4.4 2.0 - 8.3 x10*3/uL [facility] Imm Gran Abs Auto 0.02 0.00 - 0.03 X10*3/uL [facility] Lymphocytes Absolute Auto 2.2 1.2 - 4.9 X10*3/uL [facility] Monocytes Absolute Auto 0.5 0.1 - 1.2 X10*3/uL [facility] Eosinophils Absolute Auto 0.1 0.0 - 0.4 X10*3/uL [facility] Basophils Absolute Auto 0.0 0.0 - 0.2 X10*3/uL [facility] NRBC Abs Auto 0.000 0.0 - 0.012 X10*3/uL [facility] 10/09/2024 3:02 PM EST 10/09/2024 3:07 PM EST Generic External Data Provider LAB BLOOD ORDERAB LES Final Result Performing Organization Address City/[facility]/ZIP Co de Phone Number [facility] [address] [place] [phone] * (ABNORMAL) Magnesium (10/09/2024 3:02 PM EST) Magnesium 1.5(L) 1.6 - 2.6 mg/dL [facility] 10/09/2024 3:02 PM EST 10/09/2024 3:07 PM EST SocialDiabetes External Data Provider LAB BLOOD ORDERAB LES Final Result Performing Organization Address City/[facility]/ZIP Co de Phone Number [facility] [address] [place] [phone] * Lipase (10/09/2024 3:02 PM EST) Lipase 42 8 - 78 U/L [facility] 10/09/2024 3:02 PM EST 10/09/2024 3:07 PM EST us Generic External Data Provider LAB BLOOD ORDERAB LES Final Result [facility] [address] [place] [phone] * (ABNORMAL) Comprehensive Metabolic Panel (10/09/2024 3:02 PM EST) Only the most recent of2 resultswithin the time period is included. Sodium 136 135 - 145 mmol/L [facility] Potassium 5.1 3.3 - 5.1 mmol/L [facility] Chloride 104 96 - 108 mmol/L [facility] Carbon Dioxide 25 22 - 29 mmol/L [facility] Anion Gap 12 12 - 20 [facility] Urea Nitrogen (BUN) 16 9 - 16 mg/dL [facility] Creatinine, Serum 1.64(H) 0.5 - 1.4 mg/dL [facility] Creatinine Clr Calc Pharmacy 32.3 [facility] Comment:Provided height and weight: 160.02 cm,67.4 kg.eGFR (calculated from the MDRD study equation) and eCrCl(calculated from the Cockcroft-Gault equation) are based ondifferent parameters and may not yield comparable results.If eCrCl result is absurd, please check patient'sheight/weight. Estimated Glomerular Filt Rate 32 [facility] Comment:Chronic Kidney Disea se: Estimated GFR < 60 mL/min/1.19x1Ngmewv Kidney Disease: Estimated GFR < 15 mL/min/1.73m2 Glucose 376(HH) 60 - 115 mg/dL [facility] Comment:Critical value for t est GLU: Results called to and readback by: ENZO Person calling: SHEN Date: 10/09/24Time: 1550 Calcium 10.5(H) 8.4 - 10.2 mg/dL [facility] Bilirubin, Total 0.3 0.0 - 1.0 mg/dL [facility] Aspartate Amino Transferase 20 5 - 31 U/L [facility] Alanine Aminotransferase 18 0 - 31 U/L [facility] Total Protein 7.1 6.5 - 8.0 g/dL [facility] Albumin Level 4.5 3.5 - 5.0 g/dL [facility] Alkaline Phosphatase 98 39 - 117 U/L [facility] 10/09/2024 3:02 PM EST 10/09/2024 3:07 PM EST us Generic External Data Provider LAB BLOOD ORDERAB LES Edited Result - Final [facility] [address] [place] [phone] * XR CERVICAL SPINE 4V (10/09/2024 1:24 PM EST) Anatomical Region Laterality Modality Abdomen Radiographic Chiquita ging 10/09/2024 1:24 PM EST Narrative 11/21/2024 10:46 AM EST ? [facility] ? [address] ?[place] [address] ?XRay Report ? Signed ? Patient: Joelle Myers I ?MR#: [id number] ?? [id number] ? : 1960 ?Acct:[id number] ? Age/Sex: 64 / F ?ADM Date: 10/09/24 ? Loc: HO.HOSX ? Attending Dr: Jose J LIN ? Ordering Physician: Jose J Andrea ?? Date of Service: 10/09/24 ?? Procedure(s): XR cervical spine 4V ?? Accession Number(s): [id number] ? cc: Jose J Andrea; NEIL BERNARD NP ? EXAMINATION: ?? XR CERVICAL SPINE ? CLINICAL INFORMATION: ?? Arthrodesis status Z98.1. ? COMPARISON: ?? CT Cervical spine 04/27/2024 ? TECHNIQUE: ?? 4 views of the cervical spine, inclusive of flexion and extension ?? views, were obtained. ? FINDINGS: ?? Cervical spine is visualized from C1-C6 level. No evidence of acute ?? fracture or malalignment. Joint spaces are maintained. No significant ?? subluxation is evident on the flexion-extension views. Multilevel mild ?? disc degenerative changes with endplate changes, mild disc height ?? narrowing. Facet degeneration in the lower cervical spine. Lung apices ?? are clear. ? XR/XR cervical spine 4V ?? IMPRESSION: ?? Mild cervical spondylosis. No radiographic evidence of acute fracture. ? Study is assigned/presented to me for interpretation on Nov 21, 2024 ? Electronically signed by: ??Abdulkadir Robertson MD ??11/21/2024 10:43 AM EST ? Dictated By: ?Abdulkadir Robertson MD ? Signed By: ?<Electronically signed by Abdulkadir Robertson MD in OV> ?11/21/24 1043 ? DD/ 1324 ? TD/TT: 10/09/24 1330 ? [employer] Lead: HB ? Procedure Note Brunoprimo, [place] - 11/21/2024 [facility] [address] [place] [address] [address] [place] [address] XRay Report Signed Patient: Joelle Myers IMR#: [id number] : 1960cct:[id number] Age/Sex: 64 / FADM Date: 10/09/24 Loc: HO.HOSX Attending Dr: Jose J LIN Ordering Physician: Jose J Andrea Date of Service: 10/09/24 Procedure(s): XR cervical spine 4V Accession Number(s): [id number] cc: Jose J Andrea; NEIL BERNARD NP EXAMINATION: XR CERVICAL SPINE CLINICAL INFORMATION: Arthrodesis status Z98.1. COMPARISON: CT Cervical spine 04/27/2024 TECHNIQUE: 4 views of the cervical spine, inclusive of flexion and extension views, were obtained. FINDINGS: Cervical spine is visualized from C1-C6 level. No evidence of acute fracture or malalignment. Joint spaces are maintained. No significant subluxation is evident on the flexion-extension views. Multilevel mild disc degenerative changes with endplate changes, mild disc height narrowing. Facet degeneration in the lower cervical spine. Lung apices are clear. XR/XR cervical spine 4V IMPRESSION: Mild cervical spondylosis. No radiographic evidence of acute fracture. Study is assigned/presented to me for interpretation on Nov 21, 2024 Electronically signed by: Abdulkadir Robertson MD 11/21/2024 10:43 AM EST RP Dictated By: Abdulkadir Robertson MD Signed By: <Electronically signed by Abdulkadir Robertson MD in OV> 11/21/24 1043 DD/ 1324 TD/TT: 10/09/24 1330 [employer] Lead: DARIEN [facility] External Provider IMG XR PROCEDURES Final Result * Culture, Urine, Routine (10/09/2024 12:00 AM EST) Only the most recent of2 resultswithin the time period is included. Urine Urine specimen obtained by clean catch procedure / Unknown 10/09/2024 10/09/2024 Comment:UACC Narrative [facility] - 10/11/2024 10:52 AM EST Urine Culture Report Result Urine Culture 10,000 to 50,000 cfu/ml Urine Culture Mixed bacterial madhavi characteristic of Urine Culture urogenital contamination. Specimen Source: Urine clean catch Generic External Data Provider LAB MICROBIOLOGY - GENERAL ORDERABLES Final Result [facility] [address] [place] [address] [phone] * (ABNORMAL) POCT Urinalysis (09/18/2024 11:41 AM EST) Color, UA Yellow Clarity, UA Clear Glucose, UA 3+ 500+++ Bilirubin, UA Negative Ketones, UA Negative Spec Grav, UA 1.015 Blood, UA Negative Negative, None Detected pH, UA 5.5 Protein, UA Negative Urobilinogen, UA 0.2 Leukocytes, UA Negative Negative, Rare, Trace Nitrite, UA Positive(A) Negative, None Detected Appearance, UA clear QC Media Lot # [id number] Urine 09/18/2024 11:4 1 AM EST Adrienne Benson DO POINT OF CARE TEST ENTER/KARLY T ORDERABLES Final Result * (ABNORMAL) Bacterial Vaginosis (09/18/2024 12:00 AM EST) TRICHOMONAS VAGINALIS DETECTION BY PCR NOT DETECTED Not Detect [facility] BACTERIAL VAGINOSIS DETECTION BY PCR POSITIVE(A) Negative [facility] Comment:The BV organism targ ets of the Xpert Xpress MVP test can becommensal in women; Xpert Xpress MVP positive results forbacterial vaginosis should be considered in conjunction withother clinical and patient information to determine thedisease status. Organisms that are not detected by the XpertXpress MVP test have also been reported to be associatedwith BV and aerobic vaginitis.The Xpert Xpress MVP test performance has not been evaluatedin patients under the age of 14. KARI GROUP DETECTION BY PCR DETECTED(A) Not Detect [facility] Kari glab krusei PCR DETECTED(A) Not Detect [facility] 09/18/2024 09/18/2024 Adrienne Benson DO LAB MICROBIOLOGY - GENERAL O RDERABLES Final Result [facility] [address] [place] [phone] * Chlamydia/N. Gonorrhoeae RNA, TMA, Urogenitial (09/18/2024 12:00 AM EST) CT PCR NOT DETECTED Not Detect. [facility] Comment:A not detected test result does not exclude the possibilityof infection because test results can be affected byimproper specimen collection, concurrent antibiotic therapy,or the number of organisms in the specimen which may bebelow the sensitivity of the test. As with many diagnostictests, results from the Xpert CT/NG assay should beinterpreted in conjunction with other laboratory andclinical data available to the clinician.Xpert CT/NG performance has not been evaluated in patientsless than 14 years of age. The assay should not be used forthe evaluationof suspected sexual abuse or for other medico-legalindications. Additional testing is recommended in anycircumstance when false positive or false negative resultscould lead to adverse medical, social or psychologicalconsequences. NG PCR NOT DETECTED Not Detect. [facility] Comment:A not detected test result does not exclude the possibilityof infection because test results can be affected byimproper specimen collection, concurrent antibiotic therapy,or the number of organisms in the specimen which may bebelow the sensitivity of the test. As with many diagnostictests, results from the Xpert CT/NG assay should beinterpreted in conjunction with other laboratory andclinical data available to the clinician.Xpert CT/NG performance has not been evaluated in patientsless than 14 years of age. The assay should not be used forthe evaluationof suspected sexual abuse or for other medico-legalindications. Additional testing is recommended in anycircumstance when false positive or false negative resultscould lead to adverse medical, social or psychologicalconsequences. Urine (Urine, Random) 09/18/2024 09/18/2024 Narrative [facility] - 09/19/2024 2:49 AM EST Vaginal us Adrienne Benson DO LAB MICROBIOLOGY - GENERAL O RDERABLES Final Result [facility] [address] [place] [phone] [phone] * XR Chest 1 View (09/17/2024 3:03 PM EST) Anatomical Region Laterality Modality Chest Radiographic Chiquita ging 09/17/2024 3:03 PM EST Narrative 09/17/2024 4:48 PM EST ? [facility] ?[address] ?[place] [address] ?XRay Report ? Signed ? Patient: Louis,Joelle I ?MR#: [id number] ?? [id number] ? : 1960 ?Acct:[id number] ? Age/Sex: 64 / F ?ADM Date: 11/11/24 ? Loc: HO.ED ? Attending Dr: ? Ordering Physician: Summer Munguia ?? Date of Service: 09/17/24 ?? Procedure(s): XR chest 1V ?? Accession Number(s): [id number] ? cc: Summer Munguia; NEIL BERNARD NP ? EXAMINATION: ?? XR CHEST ? CLINICAL INFORMATION: ?? dizziness ? COMPARISON: ?? CT chest 05/30/2024, chest radiograph 06/16/2017 ? TECHNIQUE: ?? AP view of the chest was obtained. ? FINDINGS: ?? The lungs are adequately expanded. Linear opacity in the right lateral ?? lung is favored to represent platelike atelectasis. Chronic blunting of ?? the lateral right costophrenic angle, as before. No focal ?? consolidation, significant pleural effusion, pulmonary edema or ?? pneumothorax. The cardiomediastinal silhouette is within normal limits ?? for technique and unchanged. Mild aortic arch calcifications are seen. ?? No acute osseous abnormality. ? XR/XR chest 1V ?? IMPRESSION: ?? 1. ??No acute pulmonary disease. ?? 2. ??Linear opacity in the right lateral lung is favored to represent ?? platelike atelectasis. ? Electronically signed by: ??Nahed Neumann DO ??09/17/2024 04:45 PM EST ?? RP ? Dictated By: ?Nahed Neumann ? Signed By: ?<Electronically signed by Nahed Neumann in OV> ? 09/17/24 1645 ? DD/ 1503 ? TD/TT: 09/17/24 1515 ? [employer] Lead: ? Procedure Note Donsharadter, Image - 09/17/2024 [place] [id number] XRay Report Signed Patient: Joelle Myers IMR#: [id number] : 1Acct:[id number] Age/Sex: 64 / FADM Date: 09/17/24 Loc: HO.ED Attending Dr: Ordering Physician: Summer Munguia Date of Service: 09/17/24 Procedure(s): XR chest 1V Accession Number(s): [id number] cc: Summer Munguia; NEIL BERNARD NP EXAMINATION: XR CHEST CLINICAL INFORMATION: dizziness COMPARISON: CT chest 05/30/2024, chest radiograph 06/16/2017 TECHNIQUE: AP view of the chest was obtained. FINDINGS: The lungs are adequately expanded. Linear opacity in the right lateral lung is favored to represent platelike atelectasis. Chronic blunting of the lateral right costophrenic angle, as before. No focal consolidation, significant pleural effusion, pulmonary edema or pneumothorax. The cardiomediastinal silhouette is within normal limits for technique and unchanged. Mild aortic arch calcifications are seen. No acute osseous abnormality. XR/XR chest 1V IMPRESSION: 1. No acute pulmonary disease. 2. Linear opacity in the right lateral lung is favored to represent platelike atelectasis. Electronically signed by: Nahed Neumann DO 09/17/2024 04:45 PM EST RP Dictated By: Nahed Neumann Signed By: <Electronically signed by Nahed Neumann in OV> 09/17/24 1645 DD/ 1503 TD/TT: 09/17/24 1515 [employer] Lead: [facility] External Provider IMG XR PROCEDURES Final Result * BI Mammogram Screening Tomosynthesis Bilateral (06/06/2024 1:12 PM EDT) Anatomical Region Laterality Modality Breast Bilateral Mammography 06/06/2024 1:12 PM EDT Narrative 06/13/2024 11:28 AM EDT ? [facility] [place] [facility] [address] [facility] ?[place] [address] ? Mammography Report ? Signed ? Patient: Louis,Joelle I ?MR#: [id number] ?? [id number] ? : 1960 ?Acct:[id number] ? Age/Sex: 63 / F ?ADM Date: 07/31/24 ? Loc: HO.MAMMO ? 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 Ordering Physician: NEIL BERNARD NP ?Results: 1Negative ? Date of Service: 06/06/24 ?Follow Up: 1 Year From Orig ?? inal Mammogram ? Procedure(s): MM tomosynthesis screening BI ?? Accession Number(s): [id number] ? cc: JOANA,NEIL MARCELLO ? EXAMINATION: ?? MM SCREENING DIGITAL BREAST TOMOSYNTHESIS, BILATERAL ? CLINICAL INFORMATION: ? Screening. Asymptomatic. ? COMPARISON: ?? Mammography: This study is compared with prior exams dating back to ?? 2018. ? TECHNIQUE: ?? Digital breast tomosynthesis is performed in both the craniocaudal and ?? mediolateral oblique views along with computer-aided detection (CAD). ?? Synthesized 2D images are generated from the tomosynthesis. ? FINDINGS: ?? There are scattered areas of fibroglandular density (ACR BI-RADS breast ?? composition Category b). ? There are no significant masses, abnormal calcifications, or other ?? abnormalities. ? MM/MM tomosynthesis screening BI ?? IMPRESSION: ?? No mammographic evidence of malignancy. ? ASSESSMENT: ? BI-RADS BI-RADS 1 - Negative ? RECOMMENDATION: ?? Routine annual mammography screening. ? 1 year F/U ? This examination should not preclude the clinical evaluation of a ?? suspicious palpable abnormality. ? This patient's information was entered into a reminder system with a ?? target due date for their next mammogram. ? Dictated By: ?Arleth Machado MD ? Signed By: ?<Electronically signed by Arleth Machado MD in OV> ? 06/13/24 1124 ? DD/ ? TD/TT: ? [employer] Lead: ? Procedure Note Papi, Image - 08/07/2024 [facility] [address] [place] [address] Mammography Report Signed Patient: Joelle Myers IMR#: [id number] : 1Acct:[id number] Age/Sex: 63 / FADM Date: 06/06/24 Loc: HO.MAMMO Attending Dr: Neil Bernard TURNER MACHINE OPERATOR Ordering Physician: NEIL BERNARD NPResults: 1Negative Date of Service: 06/06/24Follow Up: 1 Year From Orig inal Mammogram Procedure(s): MM tomosynthesis screening BI Accession Number(s): [id number] cc: NEIL BERNARD NP EXAMINATION: MM SCREENING DIGITAL BREAST TOMOSYNTHESIS, BILATERAL CLINICAL INFORMATION: Screening. Asymptomatic. COMPARISON: Mammography: This study is compared with prior exams dating back to 2018. TECHNIQUE: Digital breast tomosynthesis is performed in both the craniocaudal and mediolateral oblique views along with computer-aided detection (CAD). Synthesized 2D images are generated from the tomosynthesis. FINDINGS: There are scattered areas of fibroglandular density (ACR BI-RADS breast composition Category b). There are no significant masses, abnormal calcifications, or other abnormalities. MM/MM tomosynthesis screening BI IMPRESSION: No mammographic evidence of malignancy. ASSESSMENT: BI-RADS BI-RADS 1 - Negative RECOMMENDATION: Routine annual mammography screening. 1 year F/U This examination should not preclude the clinical evaluation of a suspicious palpable abnormality. This patient's information was entered into a reminder system with a target due date for their next mammogram. Dictated By: Arleth Machado MD Signed By: <Electronically signed by Arleth Machado MD in OV> 06/13/24 1124 DD/ 1312 TD/TT: [employer] Lead: Neil Bernard ANP IM BI PROCEDURES Final Result * Lipid Panel, Standard (12/07/2023 10:20 AM EST) Triglycerides 88 <150 mg/dL [facility] Comment:Desirable Triglyceri de: less than 150 mg/dLBorderline High Triglyceride 150-199 mg/dLHigh Triglyceride: 200-499 mg/dLVery High Triglyceride: greater than or equal to 5OO mg/dL Cholesterol 151 <200 mg/dL [facility] Comment:Desirable Cholestero l: less than 200 mg/dLBorderline High Cholesterol: 200-239 mg/dLHigh Cholesterol: greater than 239 mg/dL LDL Cholesterol Calculated 74 <100 mg/dL [facility] Comment:Desirable LDL: less than 100 mg/dLNear Optimal/Above Optimal LDL: 110- 129 mg/dLBorderline High LDL: 130-159 mg/dLHigh LDL: 160-189 mg/dLVery High LDL: greater than or equal to 190 mg/dL HDL Cholesterol 60 >40 mg/dL [facility] Comment:Desirable HDL: great er than 40 mg/dL Note: This HDL assay may give artificially low results in patients with liver disease. Blood Venous blood specimen / Unknown 12/07/2023 10:20 AM EST 12/07/2023 10:20 AM EST [facility] BLOOD ORDERABLES Final Resul t [facility] [address], [place] [phone] * Colonoscopy (04/15/2015) Colonoscopy Normal Normal Historical Provider HEALTH MAINTENANCE Final Result from Last 3 Months or Most Recently Relevant to Health Maintenance [facility] MEDICAID STAND ADULT Care Teams Rfid Developer Relationship Specialty Start Date End Date Neil Bernard ANP [address] [place], [place] PCP - General Family Medicine 07/07/20 Vaishali Minor PharmD [address], [place] Pharmacist Internal Medicine 10/29/24
--- OUTSIDE RECORDS SUMMARY | 2024-12-17 06:50 | XMS_ITS | Encounter Summary ---
Author Organization [employer] Address [address] [facility] 7t [place] [address] Care Team Providers Care Process Development Technician Name Role Phone Sepideh Hopkins Primary Care Provider [phone] Vaishali Minor PharmD Unavailable [phone]- [phone] Reason for Visit * Reason Comments Med Refill Encounter Details Date Type Department Care Team ([facility] st Contact Info) Description 02/27/2024 Refill [facility] [address] [place], [place] [phone] Sepideh Hopkins ANP [address] [place], [place] [phone] Social History Tobacco Use Types Packs/Day Years Used Date Smoking Tobacco: Some Days Cigarettes Smokeless Tobacco: Never Alcohol Use Standard [...] from getting things needed for daily living? No 11/18/2023 Utilities Answer Date Recorded In the past 12 months, has t he electric, gas, oil or water company threatened to shut off services in your home? No 11/18/2023 Depression Answer Date Recorded Patient Health Questionnaire-2 Score 0 11/18/2023 Comments Unknown Sex and Gender Information Value [...] EST Office Visit [facility] [address] [place] [address] Juarez Damon DDS [address] [place] [address] 147[address] 01/08/2025 11:00 AM EST Medication Management [facility] [address] [place] [phone] Vaishali Minor PharmD [address] [place] [phone] 02/19/2025 1:00 PM EDT Office Visit [facility] [address] [place] [address]46 Sepideh Hopkins ANP [address] [place] [phone] 05/20/2025 1:00 PM EDT Office Visit [facility] [address] [place] [address] Linsey Dawkins documented as of this encounter Visit Diagnoses Not on filedocumented in this encounter Care Teams Process Development Technician Relationship Specialty Start Date End Date Sepideh Hopkins ANP [address] [place] [address] PCP - General Family Medicine 07/07/20 Vaishali Minor PharmD [address] [place] [phone] Pharmacist Internal Medicine 10/29/24 documented as of this encounter
--- OUTSIDE RECORDS SUMMARY | 2024-12-17 06:50 | XMS_ITS | Encounter Summary ---
Author Organization [employer] Address [address] [facility] 7t [place] [address] Care Team Providers Care Internet Marketing Manager Name Role Phone Sepideh Hopkins Primary Care Provider [phone] Vaishali Minor PharmD Unavailable [phone] Reason for Visit * Reason Comments Med Refill Encounter Details Date Type Department Care Team ([facility] st Contact Info) Description 06/22/2024 Refill [facility] [address] [place], [place] [phone] Sepideh Hopkins ANP [address] [place], [place] [phone] Social History Tobacco Use Types Packs/Day Years [...] Description 01/01/2025 2:30 PM EST Office Visit [facility] [address] [place] [phone] Juarez Damon DDS [address] [place] [phone] 01/08/2025 11:00 AM EST Medication Management [facility] [address] [place] [address] Vaishali Minor PharmD [address] [place] [address] 02/19/2025 1:00 PM EDT Office Visit [facility] [address] [place] [address] Sepideh Hopkins ANP [address] [place] [address] 18[address] 05/20/2025 1:00 PM EDT Office Visit [facility] [address] [place] [phone] Linsey Dawkins documented as of this encounter Visit Diagnoses Not on filedocumented in this encounter Care Teams Internet Marketing Manager Relationship Specialty Start Date End Date Sepideh Hopkins ANP [address] [place] [address] PCP - General Family Medicine 07/07/20 Vaishali Minor PharmD [address] [place] [address] Pharmacist Internal Medicine 10/29/24 documented as of this encounter
[2024-12-17 08:09] LABS: Alanine Aminotransferase 17 U/L (0-31); Albumin Level 4.2 g/dL (3.5-5.0); Alkaline Phosphatase 84 U/L (39-117); Aspartate Amino Transferase 20 U/L (5-31); Bilirubin Direct 0.1 mg/dL (0.0-0.5); Bilirubin Total 0.4 mg/dL (0.0-1.0); Cholesterol 106 mg/dL (<200); HDL Cholesterol 50 mg/dL (>40); LDL Cholesterol Calculated 45 mg/dL (<100); Total Protein 6.9 g/dL (6.5-8.0); Triglycerides 58 mg/dL (<150)
== END 2024-12-17 06:47 | disposition home or self-care (01) ==
LOC: HO.LAB 06:46
PROVIDERS: PCP Nurse Practitioner Primary Care; Visit Provider Nurse Practitioner Primary Care
DX: E78.5 Hyperlipidemia, unspecified (principal)
CPT/HCPCS: 36415; 80061; 80076

== ENCOUNTER 2024-12-26 12:59 | Outpatient (REF) | payer MEDICAID, SELFPAY ==
--- NOTE | ~2024-12-26 | US_ITS ---
CLINICAL HISTORY: I65.23 - Occlusion and stenosis of bilateral carotid arteries US Bilateral Carotid Duplex Comparison: None Findings: Bilateral intimal thickening without discrete plaque at level of the carotid arteries. No arrhythmia. Peak systolic velocities: Right CCA: Ninety-two cm/s. Right ICA: 98cm/s. Right ECA: patent Right vertebral artery flow antegrade Left CCA: 97 cm/s. Left ICA: 91 cm/s. Left ECA: patent Left vertebral artery flow antegrade IMPRESSION: No significant stenosis (0-49% stenosis). This document has been electronically signed by: Samara Urena MD on 12/27/2024 10:39:32
--- OUTSIDE RECORDS SUMMARY | 2024-12-26 13:12 | XMS_ITS | Clinical Summary ---
Author Organization [facility] Address [address] [place] [address] Care Team Providers Care Group Practice Pediatrician Name Role Phone Karlos Adame [facility] Primary Care Provider [phone] Family History Medical History Relation Comments Diabetes [...] Name Priority Date/Time Associated Diagnosis Comments LAB SOFTWARE SUPPORT ENGINEER Routine 10/19/2017 12:00 AM EST from Last 3 Months or Most Recently Relevant to Health Maintenance Results * Lab Air Quality Specialist (10/19/2017 12:00 AM EST) Hemoglobin A1C 5.9 % [facility] 10/19/2017 us [facility] [id number] LICITED RESULTS Final Result [facility] from Last 3 Months or Most Recently Relevant to Health Maintenance Insurance [place]ICAID [place] Care Teams Group Practice Pediatrician Relationship Specialty Start Date End Date Karlos Adame FNP [address] [place] [address], [address]rd [place] [address] PCP - General 11/17/20
== END 2024-12-26 13:00 | disposition home or self-care (01) ==
LOC: HO.US 12:59
PROVIDERS: PCP Nurse Practitioner Primary Care; Visit Provider Internal Medicine
DX: I65.23 Occlusion and stenosis of bilateral carotid arteries (principal)
CPT/HCPCS: 93880

== ENCOUNTER → 2024-12-26 13:01 | Outpatient (BNV) | payer MEDICAID, SELFPAY | PROVIDERS: PCP Nurse Practitioner Primary Care; Visit Provider Radiology Diagnostic Radiology | DX: I65.23 Occlusion and stenosis of bilateral carotid arteries (principal) | CPT/HCPCS: 93880 ==

== ENCOUNTER 2025-01-09 07:58 | Day surgery (SDC) | payer MEDICAID, SELFPAY ==
--- OUTSIDE RECORDS SUMMARY | 2025-01-01 16:39 | XMS_ITS | Encounter Summary ---
Author Organization [employer] Address [address] [facility] 7t [place] [address] Care Team Providers Care Civil Engineer Land Development Name Role Phone Sepideh Hopkins JAVI Primary Care Provider [phone] Vaishali Minor PharmD Unavailable [phone] Encounter Details Date Type Department Care Team (Late st Contact Info) Description 12/10/2024 Telephone [facility] [address] [place] [address] Vaishali Minor, PharmD [address] [place], [place] [phone] Social History Tobacco Use Types Packs/Day Years [...] Care Team (Late st Contact Info) Description 01/08/2025 11:00 AM EST Medication Management [facility] [address] [place] [address] Vaishali Minor PharmD [address] [place] [address] 01/17/2025 1:30 PM EDT Office Visit [facility] [address] [place] [address] Everett Angeles, DMD [address] [place] [address] 02/19/2025 1:00 PM EDT Office Visit [facility] [address] [place] [address] Sepideh Hopkins ANP [address] [place] [address] 05/20/2025 1:00 PM EDT Office Visit [facility] [address] [place] [address] Linsey Dawkins documented as of this encounter Visit Diagnoses Not on filedocumented in this encounter Additional Health Concerns Assessment Noted Time PHQ-9 Depression Total Score: 5 11/23/19 25 1:05 PM EST documented as of this encounter Care Teams Civil Engineer Land Development Relationship Specialty Start Date End Date Sepideh Hopkins ANP [address] [place] [phone] PCP - General Family Medicine 07/07/20 Vaishali Minor, IrwinD [address] [place] [phone] Pharmacist Internal Medicine 10/29/24 documented as of this encounter
--- OUTSIDE RECORDS SUMMARY | 2025-01-01 16:39 | XMS_ITS | Encounter Summary ---
Author Organization [employer] Address [address] [facility] 7t [place] [address] Care Team Providers Care Manager Inpatient Name Role Phone Sepideh Hopkins Primary Care Provider [phone] Vaishali Minor PharmD Unavailable [phone] Reason for Visit * Reason Onset Date Comments Durable Medical Equipment 12/13/2024 Shower chair Encounter Details Date Type Department Care Team ([facility] st Contact Info) Description 12/13/2024 Telephone [facility] [address] [place], [place] [phone] Sepideh Hopkins ANP [address] [place] [address] Durable Medical Equipment (Shower chair) Social History [...] encounter Miscellaneous Notes * Telephone Encounter - Lizzy Barker - 12/17/2024 10:03 AM EST DME for Shower chair signed and faxed to [facility] . Confirmation received and sent to scan. If patient calls to check status on above, please advise them to contact [facility] at [phone]. * Telephone Encounter - Ale Gill - [...] Description 01/08/2025 11:00 AM EST Medication Management [facility] [address] [place] [address] Vaishali Minor PharmD [address] [place] [address] 01/17/2025 1:30 PM EDT Office Visit [facility]ULT [facility] [address] [place] [address] Everett Angeles, DMD [address] [place] [address] 02/19/2025 1:00 PM EDT Office Visit [facility] [address] [place] [address] Sepideh Hopkins ANP [address] [place] [address] 05/20/2025 1:00 PM EDT Office Visit [facility] [address] [place] [address] Linsey Dawkins documented as of this encounter Visit Diagnoses Not on filedocumented in this encounter Additional Health Concerns Assessment Noted Time PHQ-9 Depression Total Score: 5 11/23/19 25 1:05 PM EST documented as of this encounter Care Teams Manager Inpatient Relationship Specialty Start Date End Date Sepideh Hopkins ANP [address] [place] [phone] PCP - General Family Medicine 07/07/20 Vaishali Minor, IrwinD [address] [place] [phone] Pharmacist Internal Medicine 10/29/24 documented as of this encounter
--- OUTSIDE RECORDS SUMMARY | 2025-01-01 16:39 | XMS_ITS | Encounter Summary ---
Author Organization [employer] Address 75 [facility] 7t [place] [address] Care Team Providers Care Economics Teacher Name Role Phone Sepideh Hopkins Primary Care Provider Vaishali Minor PharmD Unavailable [phone] Encounter Details Date Type Department Care Team (Late st Contact Info) Description 10/04/2022 Abstract [facility] ADULT DENTAL [address] [place] [address] Dental, Provider, DDS Social History Tobacco Use [...] Description 01/08/2025 11:00 AM EST Medication Management [facility] MEDICINE [address] [place] [address] Vaishali Minor, PharmD [address] [place] [address] 01/17/2025 1:30 PM EDT Office Visit [facility] ADULT DENTAL [address] [place] [address] Everett Angeles, YENI [address] [place] [address] 02/19/2025 1:00 PM EDT Office Visit [facility] MEDICINE [address] [place] [address] Sepideh Hopkins ANP [address] [place] [address] 05/20/2025 1:00 PM EDT Office Visit [facility] ADULT DENTAL [address] [place] [address] Linsey Dawkins documented as of this encounter [...] on filedocumented in this encounter Care Teams Economics Teacher Relationship Specialty Start Date End Date Sepideh Hopkins ANP [address] [place] [address] PCP - General Family Medicine 07/07/20 Vaishali Minor PharmD [address] [place] [address] Pharmacist Internal Medicine 10/29/24 documented as of this encounter
--- OUTSIDE RECORDS SUMMARY | 2025-01-01 16:39 | XMS_ITS | Encounter Summary ---
Author Organization [employer] Address 75 [facility] 7t [place] [address] Care Team Providers Care Php Consultant Name Role Phone SandeepSepideh JAVI Primary Care Provider [phone] Vaishali Minor PharmD Unavailable [phone] Encounter Details Date Type Department Care Team (Late st Contact Info) Description 12/10/2024 9:00 AM EST Immunization [facility] MEDICINE [address] [place] [address] Nano Baxter LPN Encounter for immunization (Primary [...] Description 01/08/2025 11:00 AM EST Medication Management [facility] [address] [place] [address] Vaishali Minor, PharmD [address] [place] [address] 01/17/2025 1:30 PM EDT Office Visit [facility] ADULT DENTAL [address] [place] [address] Everett Angeles, DMD [address] [place] [address] 02/19/2025 1:00 PM EDT Office Visit [facility] MEDICINE [address] [place] [address] Sepideh Hopkins ANP [address] [place] [address] 05/20/2025 1:00 PM EDT Office Visit [facility] ADULT DENTAL [address] [place] [address] Linsey Dawkins documented as of this encounter Visit Diagnoses Diagnosis Encounter for immunization- Primary documented in this encounter Additional Health Concerns Assessment Noted Time PHQ-9 Depression Total Score: 5 11/23/19 25 1:05 PM EST documented as of this encounter Care Teams Php Consultant Relationship Specialty Start Date End Date Sepideh Hopkins ANP [address] [place] [address] PCP - General Family Medicine 07/07/20 Vaishali Minor, Leonidas [address] [place] [address] Pharmacist Internal Medicine 10/29/24 documented as of this encounter
--- OUTSIDE RECORDS SUMMARY | 2025-01-01 16:39 | XMS_ITS | Encounter Summary ---
Author Organization [employer] Address 75 [facility] 7t [place] [address] Care Team Providers Care Citrus Fruit Packer Name Role Phone Sepideh Hopkins JAVI Primary Care Provider [phone] Vaishali Minor PharmD Unavailable [phone] Reason for Visit * Reason Comments Diabetic Eye Exam Encounter Details Date Type Department Care Team (Late st Contact Info) Description 12/11/2024 1:00 PM EST Office Visit [facility] [address] [place] [address] PardeepShreya, OD [address] [place] [address] Type 2 diabetes mellitus without complication, with long-term current use of insulin ([facility]) (Primary Dx); Adult vitelliform macular dystrophy; [...] the past 12 months, has t he [employer], gas, oil or water [employer] threatened to shut off services in your [...] Description 01/08/2025 11:00 AM EST Medication Management [facility] MEDICINE [address] [place] [address] Vaishali Minor, PharmD [address] [place] [address] 01/17/2025 1:30 PM EDT Office Visit [facility] ADULT DENTAL [address] [place] [address] Everett Angeles, DMD [address] [place] [address] 02/19/2025 1:00 PM EDT Office Visit [facility] MEDICINE [address] [place] [address] Sepideh Hopkins, ANP [address] [place] [address] 05/20/2025 1:00 PM EDT Office Visit [facility] ADULT DENTAL [address] [place] [address] Linsey Dawkins Pending Results Name Type Priority Associated Diagnoses Date /Time OCT, Retina - OU - Both Eyes Ophthalmology Routine Adult vitelliform macular dystrophy 12/11/2024 1:00 PM EST documented as of this encounter Procedures Procedure Name Priority Date/Time Associated Diagnosis Comments OCT, RETINA - OU - BOTH EYES Routine 12/11/2024 1:00 PM EST Adult vitelliform macular dystrophy documented in this encounter Visit Diagnoses Diagnosis Type 2 diabetes mellitus without complication, with long-term current use of insulin ([facility])- Primary Adult vitelliform macular dystrophy Dry eyes Unspecified tear film insufficiency Presbyopia Nuclear sclerotic cataract of both eyes 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
--- OUTSIDE RECORDS SUMMARY | 2025-01-01 16:39 | XMS_ITS | Encounter Summary ---
Author Organization [employer] Address 75 [facility] 7t h Floor [place] [id number] Care Team Providers Care Chemical Dependency Counselor Name Role Phone Sepideh Hopkins Primary Care Provider Vaishali Minor PharmD Unavailable Encounter Details Date Type Department Care Team (Latest Contact Info) Description 07/23/2022 Abstract [facility] CONVERSIONS Dental, Provider, DDS Social History Tobacco [...] Description 01/08/2025 11:00 AM EST Medication Management [facility] MEDICINE [address] [place] [address] Vaishali Minor, PharmD 230 [place] [address] 01/17/2025 1:30 PM EDT Office Visit [facility] ADULT DENTAL [address] [place] [address] Everett Angeles, YENI [address] [place] [address] 02/19/2025 1:00 PM EDT Office Visit [facility] MEDICINE [address] [place] [address] Sepideh Hopkins ANP [address] [place] [address] 05/20/2025 1:00 PM EDT Office Visit [facility] ADULT DENTAL [address] [place] [address] Linsey Dawkins documented as of this encounter Visit Diagnoses Not on filedocumented in this encounter Care Teams Chemical Dependency Counselor Relationship Specialty Start Date End Date Sepideh Hopkins ANP [address] [place] [address] PCP - General Family Medicine 07/07/20 Vaishali Minor PharmD [address] [place] [address] Pharmacist Internal Medicine 10/29/24 documented as of this encounter
--- OUTSIDE RECORDS SUMMARY | 2025-01-01 16:39 | XMS_ITS | Encounter Summary ---
Author Organization [employer] Address 75 [facility] 7t [place] [address] Care Team Providers Care Single Needle Tufting Machine Operator Name Role Phone Sepideh Hopkins Primary Care Provider [phone] Vaishali Minor PharmD Unavailable [phone] Reason for Visit * Reason Comments Med Refill Encounter Details Date Type Department Care Team ([facility] st Contact Info) Description 12/13/2024 Refill [facility] MEDICINE [address] [place], [place] [phone] Sepideh Hopkins ANP [address] [place], [place] [phone] Type 2 diabetes mellitus with hyperlipidemia ([facility]/HCC) ([facility]) Social History Tobacco Use Types Packs/Day Years [...] Description 01/08/2025 11:00 AM EST Medication Management [facility] MEDICINE [address] [place] [address] Vaishali Minor, PharmD [address] [place] [address] 01/17/2025 1:30 PM EDT Office Visit [facility] ADULT DENTAL [address] [place] [address] Everett Angeles, DMD [address] [place] [address] 02/19/2025 1:00 PM EDT Office Visit [facility] MEDICINE [address] [place] [address] Sepideh Hopkins ANP [address] [place] [address] 05/20/2025 1:00 PM EDT Office Visit [facility] ADULT DENTAL [address] [place] [address] Linsey Dawkins documented as of this encounter Visit Diagnoses Diagnosis Type 2 diabetes mellitus with hyperlipidemia (CMS/HCC) (CMS/HCC) documented in this encounter Additional Health Concerns Assessment Noted Time PHQ-9 Depression Total Score: 5 11/23/19 25 1:05 PM EST documented as of this encounter Care Teams Single Needle Tufting Machine Operator Relationship Specialty Start Date End Date Sepideh Hopkins ANP [address] [place] [address] PCP - General Family Medicine 07/07/20 Vaishali Minor PharmD [address] [place] [address] Pharmacist Internal Medicine 10/29/24 documented as of this encounter
--- OUTSIDE RECORDS SUMMARY | 2025-01-01 16:39 | XMS_ITS | Encounter Summary ---
Author Organization [employer] Address 75 [facility] 7t [place] [address] Care Team Providers Care Dish Washer Name Role Phone Sepideh Hopkins JAVI Primary Care Provider [phone] Vaishali Minor PharmD Unavailable [phone] Encounter Details Date Type Department Care Team [...] Description 01/08/2025 11:00 AM EST Medication Management [facility] MEDICINE [address] [place] [address] Vaishali Minor, PharmD [address] [place] [address] 01/17/2025 1:30 PM EDT Office Visit [facility] ADULT DENTAL [address] [place] [address] Everett Angeles, DMD [address] [place] [address] 02/19/2025 1:00 PM EDT Office Visit [facility] MEDICINE [address] [place] [address] Sepideh Hopkins ANP [address] [place] [address] 05/20/2025 1:00 PM EDT Office Visit [facility] ADULT DENTAL [address] [place] [address] Linsey Dawkins documented as of this encounter Visit Diagnoses Not on filedocumented in this encounter Additional Health Concerns Assessment Noted Time PHQ-9 Depression Total Score: 5 11/23/19 25 1:05 PM EST documented as of this encounter Care Teams Dish Washer Relationship Specialty Start Date End Date Sepideh Hopkins ANP [address] [place] [address] PCP - General Family Medicine 07/07/20 Vaishali Minor, IrwinD [address] [place] [address] Pharmacist Internal Medicine 10/29/24 documented as of this encounter
--- OUTSIDE RECORDS SUMMARY | 2025-01-01 16:39 | XMS_ITS | Encounter Summary ---
Author Organization [employer] Address 75 [facility] 7t [place] [address] Care Team Providers Care Epic Anesthesia Analyst Name Role Phone Sepideh Hopkins JAVI Primary Care Provider [phone] Vaishali Minor PharmD Unavailable [phone] Encounter Details Date Type Department Care Team ([facility] st Contact Info) Description 12/17/2024 Telephone [facility] MEDICINE [address] [place] [address] Vaishali Minor, PharmD [address] [place], [place] [phone] Social History Tobacco Use Types Packs/Day Years [...] Telephone Encounter - Vaishali Minor PharmD - 12/17/2024 11:09 AM EST Patient contacted CDTM team and reports hypoglycemia events occurring since 12/15/24 (68mg/dL, 53mg/dL), 12/16/24 ( in the 60s ), 12/17/24 (67mg/dL) and denies current illness. Glucose gel prescribed to use as needed and re-educated patient on hypoglycemia treatment; patient stated understanding. Patient stated plan to visit [facility] today due to ongoing dizziness. Instructed patient to decrease Lantus by 20% to 38 units once daily and decrease novolog to 6 unitsbefore breakfast and 16 units before dinner. Updated prescriptions sent to preferred pharmacy. documented in this encounter Plan of Treatment Upcoming Encounters Date Type Department Care Team (Late st Contact Info) Description 01/08/2025 11:00 AM EST Medication Management [facility] MEDICINE [address] [place] [address] Vaishali Minor PharmD [address] [place] [address] 01/17/2025 1:30 PM EDT Office Visit [facility] ADULT DENTAL [address] [place] [address] Everett Angeles, DMD [address] [place] [address] 02/19/2025 1:00 PM EDT Office Visit [facility] MEDICINE [address] [place] [address] Sepideh Hopkins ANP 230 [place] [address] 05/20/2025 1:00 PM EDT Office Visit [facility] ADULT DENTAL [address] [place] [address] Linsey Dawkins documented as of this encounter Visit Diagnoses Diagnosis Type 2 diabetes mellitus with hyperlipidemia (CMS/HCC) (CMS/HCC)- Primary documented in this encounter Additional Health Concerns Assessment Noted Time PHQ-9 Depression Total Score: 5 11/23/19 25 1:05 PM EST documented as of this encounter Care Teams Epic Anesthesia Analyst Relationship Specialty Start Date End Date Sepideh Hopkins ANP [address] [place] [address] PCP - General Family Medicine 07/07/20 Vaishali Minor, Leonidas [address] [place] [address] Pharmacist Internal Medicine 10/29/24 documented as of this encounter
--- OUTSIDE RECORDS SUMMARY | 2025-01-01 16:39 | XMS_ITS | Clinical Summary ---
Author Organization [facility] Facility Address [address] [place] [address] Care Team Providers Care Fabrication Welder Name Role Phone Karlos Adame [facility] Primary Care Provider [phone] Family History Medical History Relation Comments Diabetes [...] Name Priority Date/Time Associated Diagnosis Comments LAB SPEECH THERAPY DIRECTOR Routine 10/19/2017 12:00 AM EST from Last 3 Months or Most Recently Relevant to Health Maintenance Results * Lab Design Analyst (10/19/2017 12:00 AM EST) Hemoglobin A1C 5.9 % [facility] 10/19/2017 us [facility]version LAB [id number] LICITED RESULTS Final Result [facility] from Last 3 Months or Most Recently Relevant to Health Maintenance Insurance [place]ICA[place] Care Teams Fabrication Welder Relationship Specialty Start Date End Date Karlos Adame FNP [address] [place] [address], [address]rd [place] [address] PCP - General 11/17/20
--- OUTSIDE RECORDS SUMMARY | 2025-01-01 16:39 | XMS_ITS | Encounter Summary ---
Author Organization [employer] Address 75 [facility] 7t [place] [address] Care Team Providers Care Residential Property Tax Appraiser Name Role Phone Neil Bernard Primary Care Provider [phone] Vaishali Minor PharmD Unavailable [phone] Reason for Referral * Consultation (Routine) - Closed Specialty Diagnoses / Procedures Referred By Contkee t Referred To Contact Otolaryngology Diagnoses Dizziness Chronic maxillary sinusitis Neil Bernard ANP [address] [place] [address] Phone: tel: fax: [facility] [address] Phone: tel: fax: Referral ID Status Reason Start Date Expiration Date V isits Requested Visits Authorized [id number] Closed Specialty Services Required 12/13/2024 12/13/2025 6 6 Encounter Details Date Type Department Care Team (Late st Contact Info) Description 11/23/2024 1:00 PM EST Telemedicine [facility] MEDICINE [address] [place], [place] [phone] Neil Bernard ANP [address] [place], [place] [phone] Dizziness (Primary Dx); Chronic maxillary sinusitis Social [...] spicules of jaw [employer] utilized for Greek interpretation #[id number] Jessica Televisit today to review CT scan. [...] CT head/brain wo IV con Accession Number(s): [id number] cc: NEIL BERNARD WRINGER MACHINE OPERATOR Report Number: [id number]: Total DLP = 615.00 mGy-cm EXAMINATION: CT [...] Description 01/08/2025 11:00 AM EST Medication Management [facility] MEDICINE [address] [place] [address] Vaishali Minor, PharmD [address] [place] [address] 01/17/2025 1:30 PM EDT Office Visit [facility] ADULT DENTAL [address] [place] [address] Everett Angeles, DMD [address] [place] [address] 02/19/2025 1:00 PM EDT Office Visit [facility] MEDICINE [address] [place] [address] Neil Bernard ANP [address] [place] [address] 05/20/2025 1:00 PM EDT Office Visit [facility] ADULT DENTAL [address] [place] [address] Linsey Dawkins Pending Results Name Type Priority [...] documented as of this encounter Care Teams Residential Property Tax Appraiser Relationship Specialty Start Date End Date Neil Bernard ANP [address] [place] [address] PCP - General Family Medicine 07/07/20 Vaishali Minor PharmD [address] [place] [address] Pharmacist Internal Medicine 10/29/24 documented as of this encounter
--- OUTSIDE RECORDS SUMMARY | 2025-01-01 16:39 | XMS_ITS | Encounter Summary ---
Author Organization [employer] Address 75 [facility] 7t [place] [address] Care Team Providers Care Lead Rider Name Role Phone Sepideh Hopkins Primary Care Provider [phone] Vaishali Minor PharmD Unavailable [phone] Reason for Visit * Reason Comments Med Refill Encounter Details Date Type Department Care Team ([facility] st Contact Info) Description 12/08/2024 Refill [facility] MEDICINE [address] [place], [place] [phone] Sepideh Hopkins ANP [address] [place], [place] [phone] Mixed anxiety and depressive disorder Social History [...] Description 01/08/2025 11:00 AM EST Medication Management [facility] MEDICINE [address] [place] [address] Vaishali Minor, PharmD [address] [place] [address] 01/17/2025 1:30 PM EDT Office Visit [facility] ADULT DENTAL [address] [place] [address] Everett Angeles, DMD [address] [place] [address] 02/19/2025 1:00 PM EDT Office Visit [facility] MEDICINE [address] [place] [address] Sepideh Hopkins, JAVI [address] [place] [address] 05/20/2025 1:00 PM EDT Office Visit [facility] ADULT DENTAL [address] [place] [address] Linsey Dawkins documented as of this encounter Visit Diagnoses Diagnosis Mixed anxiety and depressive disorder Dysthymic disorder documented in this encounter Additional Health Concerns Assessment Noted Time PHQ-9 Depression Total Score: 5 11/23/19 25 1:05 PM EST documented as of this encounter Care Teams Lead Rider Relationship Specialty Start Date End Date Sepideh Hopkins ANP [address] [place] [address] PCP - General Family Medicine 07/07/20 Vaishali Minor PharmD [address] [place] [address] Pharmacist Internal Medicine 10/29/24 documented as of this encounter
--- OUTSIDE RECORDS SUMMARY | 2025-01-01 16:39 | XMS_ITS | Encounter Summary ---
Author Organization [employer] Address 75 [facility] 7t [place] [address] Care Team Providers Care Forest Ranger Name Role Phone Sepideh Hopkins Primary Care Provider [phone] Vaishali Minor PharmD Unavailable [phone] Reason for Visit * Reason Comments Care Coordination Outreach Encounter Details Date Type Department Care Team (Latest Contact Info) Description 12/14/2024 Patient Outreach [facility] [address] [place], [place] [phone] Sepideh Hopkins ANP [address] [place] [address] Care Coordination (Outreach) Social History Tobacco Use [...] Mckeon - 12/14/2024 11:02 AM EST CHW Xnea Mckeon placed outbound call to patient for follow up call on SDOH needs. No answer at this time. LVM introducing herself from [facility] CM Department. Requested call back. CHW reinforced direct contact information or CM for any additional questions or concerns and extended clinic hours on Mondays and Wednesdays, and Walk-In Urgent Care Located in [facility]. Patient provided with after-hours line for [facility], , which offer night timetriage service and option to transfer to transition rn provider if needed. CHW will attempt another follow up call within 10 days. documented in this encounter Plan of Treatment Upcoming Encounters Date Type Department Care Team ([facility] st Contact Info) Description 01/08/2025 11:00 AM EST Medication Management [facility] MEDICINE [address] [place] [address] Vaishali Minor, PharmD 230 [place], [place] [phone] 01/17/2025 1:30 PM EDT Office Visit [facility] ADULT DENTAL [address] [place] [address] Everett Angeles DMD [address] [place] [address] 02/19/2025 1:00 PM EDT Office Visit [facility] MEDICINE [address] [place] [address] Sepideh Hopkins ANP [address] [place] [address] 05/20/2025 1:00 PM EDT Office Visit [facility] ADULT DENTAL [address] [place] [address] Linsey Dawkins documented as of this encounter Visit Diagnoses Not on filedocumented in this encounter Additional Health Concerns Assessment Noted Time PHQ-9 Depression Total Score: 5 11/23/19 25 1:05 PM EST documented as of this encounter Care Teams Forest Ranger Relationship Specialty Start Date End Date Sepideh Hopkins ANP [address] [place] [address] PCP - General Family Medicine 07/07/20 Vaishali Minor, Leonidas [address] [place] [phone] Pharmacist Internal Medicine 10/29/24 documented as of this encounter
--- OUTSIDE RECORDS SUMMARY | 2025-01-01 16:39 | XMS_ITS | Encounter Summary ---
Author Organization [employer] Address [address] [facility] 7t [place] [address] Care Team Providers Care Professor Of Political Science Name Role Phone Sepideh Hopkins Primary Care Provider [phone] Vaishali Minor PharmD Unavailable [phone] Reason for Visit * Reason Onset Date Comments Call Back Request 12/31/2024 Medication Question 12/31/2024 Encounter Details Date Type Department Care Team ([facility] st Contact Info) Description 12/31/2024 Telephone [facility] [address] [place] [address] Sepideh Hopkins ANP [address] [place] [address] Call Back Request; Medication Question Social History Tobacco Use Types Packs/Day Years [...] encounter Miscellaneous Notes * Telephone Encounter - Veronica Gupta RN - 01/01/2025 11:40 AM EST Telephone call returned to Ann at [facility] regarding below message. No answer, left detailed V/M with [facility] nurses ext for call back. Yes, please let them know agree with protocol * Telephone Encounter - Veronica Gupta RN - 01/01/2025 10:37 AM EST Incoming call from Ann at [facility] who reports pt scheduled for colonoscopy and endoscopy on 01/09/25. Recommendation from GI specialist John is to hold eliquis x48hrs prior to procedure. They are looking for authorization to tell pt to do this. * Telephone Encounter - Kacey Bond RN - 01/01/2025 9:13 AM EST Called back Ann, no answer, phone rang and rang without voicemail. Called pt directly who stated that she has a colonoscopy/endoscopy on 01/09/25 (not 01/10) at [facility]. She also asked about how long to hold Eliquis prior to the procedure. Called [facility], left a message at extension 5 for Ann. Will task to call again if no call back. * Telephone Encounter - Snehal Lubin - 12/31/2024 4:26 PM EST Tc from Ann informing patient is going into a procedure on January 10, 2025 , as Ann will like to know how long she has to hold on to medication ( Eliquis ) . Please contact Ann [phone] Ext 5 documented in this encounter Plan of Treatment Upcoming Encounters Date Type Department Care Team (Late st Contact Info) Description 01/08/2025 11:00 AM EST Medication Management [facility] MEDICINE [address] [place] [address] Vaishali Minor, PharmD [address] [place] [address] 01/17/2025 1:30 PM EDT Office Visit [facility] ADULT DENTAL [address] [place] [address] Everett Angeles, YENI [address] [place] [address] 02/19/2025 1:00 PM EDT Office Visit [facility] MED[facility]INE [address] [place] [address] Sepideh Hopkins, ANP [address] [place] [address] 05/20/2025 1:00 PM EDT Office Visit [facility] ADULT DENTAL [address] [place] [address] Linsey Dawkins documented as of this encounter Visit Diagnoses Not on filedocumented in this encounter Additional Health Concerns Assessment Noted Time PHQ-9 Depression Total Score: 5 11/23/19 25 1:05 PM EST documented as of this encounter Care Teams Professor Of Political Science Relationship Specialty Start Date End Date Sepideh Hopkins ANP [address] [place] [address] PCP - General Family Medicine 07/07/20 Vaishali Minor PharmD [address] [place] [address] Pharmacist Internal Medicine 10/29/24 documented as of this encounter
--- OUTSIDE RECORDS SUMMARY | 2025-01-01 16:39 | XMS_ITS | Encounter Summary ---
Author Organization [employer] Address [address] [facility] 7t [place] [address] Care Team Providers Care Street Light Repairer Name Role Phone Sepideh Hopkins JAVI Primary Care Provider [phone] Vaishali Minor PharmD Unavailable [phone] Reason for Visit * Reason Onset Date Comments Medication Change 12/17/2024 Encounter Details Date Type Department Care Team (Late st Contact Info) Description 12/17/2024 Telephone [facility] MEDICINE [address] [place], [place] [phone] Sharon Garrison RN Medication Change Social History Tobacco Use Types Packs/Day Years [...] encounter Miscellaneous Notes * Telephone Encounter - Sharon Garrison RN - 12/18/2024 1:28 PM EST TC placed to pt and LVM to call back the office to f/u and see how current dizziness symptoms are doing. * Telephone Encounter - Sharon Garrison RN - 12/17/2024 3:38 PM EST TC placed to pt to remind that she should start taking the Gabapentin as recommended by Sepideh (1 in the morning 1 in the afternoon and 2 at dinner) and also that Sepideh and Vaishali have been in communication to develop the best plan of care moving forward in regards to the ongoing dizziness. Pt further advised that if episodes of hypoglycemia continue along with the dizziness to be seen at the [facility] herein [place]. Pt agreeable to coming tomorrow 12/18 as the pt has no transportation today. Will postpone this encounter for a status check * Telephone Encounter - JAVI Hill - 12/17/2024 3:18 PM EST Thank you! I will make the changes and she should continue to follow-up with Vaishali as planned. Vaishali and I are in close communication regarding her symptoms and we will continue to discuss changes to plan of care. * Telephone Encounter - Sharon Garrison RN - 12/17/2024 1:11 PM EST TC placed to pt with S charcoal kiln burner [place]arez #[id number] to inform and advise pt of PCP message below regarding pt recent episodes of dizziness. Pt informed that Sepideh feels that Gabapentin may be the cause of this dizziness and that it is suggested to cut down on the amount taken per day. Pt informed to take one in the morning, one at lunchtime and two at bedtime. Pt agreeable to trying this amount of medication going forward but wants PCP to know that she believes the dizziness to be related to her blood sugar and not the Gabapentin. Pt also cited [employer] message from 12/17/2024. Pt feels like she has been taking this medication for awhile and has never run into these side effects. Pt informed that this information will be sent to PCP for review. PCP Message Please outreach pt to let her know - it's possible that her dizziness is a side effect from medications - I would look at gabapentin as a likely offender - if she would be willing, we could decrease the gabapentin dose to 1 capsule AM and lunchtime and continue 2 capsules at bedtime. If she agrees,please let me know and we'll have to notify [employer]box as well. thanks documented in this encounter Plan of Treatment Upcoming Encounters Date Type Department Care Team (Late st Contact Info) Description 01/08/2025 11:00 AM EST Medication Management [facility] MED[facility] [address] [place] [address] Vaishali Minor, PharmD [address] [place] [address] 01/17/2025 1:30 PM EDT Office Visit [facility] ADULT DENTAL [address] [place] [address] Everett Angeles, DMD [address] [place] [address] 02/19/2025 1:00 PM EDT Office Visit [facility] MED[facility]INE [address] [place] [address] Sepideh Hopkins ANP [address] [place] [address] 05/20/2025 1:00 PM EDT Office Visit [facility] ADULT DENTAL [address] [place] [address] Linsey Dawkins documented as of this encounter Visit Diagnoses Not on filedocumented in this encounter Additional Health Concerns Assessment Noted Time PHQ-9 Depression Total Score: 5 11/23/19 25 1:05 PM EST documented as of this encounter Care Teams Street Light Repairer Relationship Specialty Start Date End Date Sepideh Hopkins ANP [address] [place] [address] PCP - General Family Medicine 07/07/20 Vaishali Minor PharmD [address] [place] [address] Pharmacist Internal Medicine 10/29/24 documented as of this encounter
--- OUTSIDE RECORDS SUMMARY | 2025-01-01 16:39 | XMS_ITS | Encounter Summary ---
Author Organization [employer] Address [address] [facility] 7t [place] [address] Care Team Providers Care Solar Lab Technician Name Role Phone Sepideh Hopkins JAVI Primary Care Provider [phone] Vaishali Minor PharmD Unavailable [phone] Reason for Visit * Reason Onset Date Comments Joana recall 12/10/2024 Encounter Details Date Type Department Care Team ([facility] st Contact Info) Description 12/10/[address] [facility] MED[facility]INE [address] [place], [place] [phone] Kesha Wilkinson [place] February recall Social History [...] Description 01/08/2025 11:00 AM EST Medication Management [facility] [address] [place] [address] Vaishali Minor, PharmD [address] [place] [address] 01/17/2025 1:30 PM EDT Office Visit [facility] ADULT DENTAL [address] [place] [address] Everett Angeles, DMD [address] [place] [address] 02/19/2025 1:00 PM EDT Office Visit [facility] MED[facility]INE [address] [place] [address] Sepideh Hopkins, ANP [address] [place] [address] 05/20/2025 1:00 PM EDT Office Visit [facility] ADULT DENTAL [address] [place] [address] Linsey Dawkins documented as of this encounter Visit Diagnoses Not on filedocumented in this encounter Additional Health Concerns Assessment Noted Time PHQ-9 Depression Total Score: 5 11/23/19 25 1:05 PM EST documented as of this encounter Care Teams Solar Lab Technician Relationship Specialty Start Date End Date Sepideh Hopkins, ANP [address] [place] [address] PCP - General Family Medicine 07/07/20 Vaishali Minor PharmD [address] [place] [address] Pharmacist Internal Medicine 10/29/24 documented as of this encounter
--- OUTSIDE RECORDS SUMMARY | 2025-01-01 16:39 | XMS_ITS | Encounter Summary ---
Author Organization [employer] Address 75 [facility] 7t [place] [address] Care Team Providers Care Compliance And Control Analyst Name Role Phone Neil Bernard Primary Care Provider [phone] Vaishali Minor PharmD Unavailable [phone] Encounter Details Date Type Department Care Team (Late st Contact Info) Description 12/17/2024 Orders Only [facility] MEDICINE [address] [place] [address] Neil Bernard ANP [address] [place] [address] Social History Tobacco Use Types Packs/Day Years [...] Description 01/08/2025 11:00 AM EST Medication Management [facility] MED[facility]INE [address] [place] [address] Vaishali Minor, PharmD [address] [place] [address] 01/17/2025 1:30 PM EDT Office Visit [facility] ADULT DENTAL [address] [place] [address] Everett Angeles, DMD [address] [place] [address] 02/19/2025 1:00 PM EDT Office Visit [facility] MEDICINE [address] [place] [address] Neil Bernard, ANP [address] [place] [address] 05/20/2025 1:00 PM EDT Office Visit [facility] ADULT DENTAL [address] [place] [address] Linsey Dawkins documented as of this encounter Procedures Procedure Name Priority Date/Time Associated Diagnosis Comments [facility] US CAROTID ARTERY DUPLEX BILATERAL Routine 12/27/2024 10:39 AM EST HEPATIC FUNCTION PANEL Routine 12/17/2024 6:58 AM EST LIPID PANEL, STANDARD Routine 12/17/2024 6:58 AM EST documented in this encounter Results * VASC US Carotid Artery Duplex Bilateral (12/27/2024 10:39 AM EST) 12/27/2024 10:3 9 AM EST Narrative [facility] - 12/27/2024 10:40 AM EST ? [facility] ?[address] ?[place] [address] ? Ultrasound Report ? Signed ? Patient: Joelle Myers I ?MR#: [id number] ?? [id number] ? : 1960 ?Acct:[id number] ? Age/Sex: 64 / F ?ADM Date: 12/26/24 ? Loc: HO.US ? Attending Dr: Rashid Recinos MD ? Ordering Physician: Rashid Recinos MD ?? Date of Service: 12/26/24 ?? Procedure(s): US carotid duplex BI ?? Accession Number(s): [id number] ? cc: NEIL BERNARD NP; Rashid Recinos MD ? CLINICAL HISTORY: I65.23 - Occlusion and stenosis of bilateral carotid arteries ? US Bilateral Carotid Duplex ? Comparison: None ? Findings: ?? Bilateral intimal thickening without discrete plaque at level of the ?? carotid arteries. ?? No arrhythmia. ?? Peak systolic velocities: ?? Right CCA: Ninety-two cm/s. ?? Right ICA: 98cm/s. ?? Right ECA: patent ?? Right vertebral artery flow antegrade ? Left CCA: 97 cm/s. ?? Left ICA: 91 cm/s. ?? Left ECA: patent ?? Left vertebral artery flow antegrade ? IMPRESSION: ?? No significant stenosis (0-49% stenosis). ? This document has been electronically signed by: Samara Urena MD on ?? 12/27/2024 10:39:32 ? Dictated By: ?Samara Urena MD ? Signed By: ?<Electronically signed by Samara Urena MD in OV> ? 12/27/24 1039 ? DD/ 1039 ? TD/TT: 12/27/24 1039 ? Bag Valver: ? Procedure Note Donotuseinterpreter, Image - 12/27/[address] [address] Ultrasound Report Signed Patient: Joelle Myers IMR#: [id number] : 1960cct:[id number] Age/Sex: 64 / FADM Date: 12/26/24 Loc: HO.US Attending Dr: Rashid Recinos MD Ordering Physician: Rashid Recinos MD Date of Service: 12/26/24 Procedure(s): US carotid duplex BI Accession Number(s): [id number] cc: NEIL BERNARD DRY KILN FEEDER; Rashid Recinos MD CLINICAL HISTORY: I65.23 - Occlusion and stenosis of bilateral carotidarteries US Bilateral Carotid Duplex Comparison: None Findings: Bilateral intimal thickening without discrete plaque at level of the carotid arteries. No arrhythmia. Peak systolic velocities: Right CCA: Ninety-two cm/s. Right ICA: 98cm/s. Right ECA: patent Right vertebral artery flow antegrade Left CCA: 97 cm/s. Left ICA: 91 cm/s. Left ECA: patent Left vertebral artery flow antegrade IMPRESSION: No significant stenosis (0-49% stenosis). This document has been electronically signed by: Samara Urena MD on 12/27/2024 10:39:32 Dictated By: Samara Urena MD Signed By: <Electronically signed by Samara Urena MD in OV> 12/27/24 1039 DD/ 1039 TD/TT: 12/27/24 1039 Bag Valver: [facility] External Provider CV VASC ULAR PROCEDURES Final Result [facility] [address] [place] [phone] * Lipid Panel, Standard (12/17/2024 6:58 AM EST) Triglycerides 58 <150 mg/dL [facility] Comment:Desirable Triglyceri de: less than 150 mg/dLBorderline High Triglyceride 150-199 mg/dLHigh Triglyceride: 200-499 mg/dLVery High Triglyceride: greater than or equal to 5OO mg/dL Cholesterol 106 <200 mg/dL [facility] Comment:Desirable Cholestero l: less than 200 mg/dLBorderline High Cholesterol: 200-239 mg/dLHigh Cholesterol: greater than 239 mg/dL LDL Cholesterol Calculated 45 <100 mg/dL [facility] Comment:Desirable LDL: less than 100 mg/dLNear Optimal/Above Optimal LDL: 110- 129 mg/dLBorderline High LDL: 130-159 mg/dLHigh LDL: 160-189 mg/dLVery High LDL: greater than or equal to 190 mg/dL HDL Cholesterol 50 >40 mg/dL [facility] Comment:Desirable HDL: great er than 40 mg/dL Note: This HDL assay may give artificially low results in patients with liver disease. 12/17/2024 6:58 AM EST 12/17/2024 6:58 AM EST [facility] BLOOD ORDERABLES Final Resul t [facility] [address] [place] [phone] * Hepatic Function Panel (12/17/2024 6:58 AM EST) Bilirubin, Total 0.4 0.0 - 1.0 mg/dL [facility] Bilirubin, Direct 0.1 0.0 - 0.5 mg/dL [facility] Aspartate Amino Transferase 20 5 - 31 U/L [facility] Alanine Aminotransferase 17 0 - 31 U/L [facility] Total Protein 6.9 6.5 - 8.0 g/dL [facility] Albumin Level 4.2 3.5 - 5.0 g/dL [facility] Alkaline Phosphatase 84 39 - 117 U/L [facility] 12/17/2024 6:58 AM EST 12/17/2024 6:58 AM EST us Neil [facility] BLOOD ORDERABLES Final Resul t [facility] [address] [place] [address] [phone] documented in this encounter Visit Diagnoses Not on filedocumented in this encounter Additional Health Concerns Assessment Noted Time PHQ-9 Depression Total Score: 5 11/23/19 25 1:05 PM EST documented as of this encounter Care Teams Compliance And Control Analyst Relationship Specialty Start Date End Date Neil Bernard, JAVI [address] [place] [address] PCP - General Family Medicine 07/07/20 Vaishali Minor, IrwinD [address] [place] [address] Pharmacist Internal Medicine 10/29/24 documented as of this encounter
--- OUTSIDE RECORDS SUMMARY | 2025-01-01 16:39 | XMS_ITS | Encounter Summary ---
Author Organization [employer] Address [address] [facility] 7t [place] [address] Care Team Providers Care Harvest Contractor Name Role Phone Sepideh Hopkins JAVI Primary Care Provider [phone] Vaishali Minor PharmD Unavailable [phone] Reason for Visit * Reason Comments Follow-up Encounter Details Date Type Department Care Team ([facility] st Contact Info) Description 01/01/2025 2:30 PM EST Office Visit [facility] ADULT DENTAL [address] [place], [place] [phone] Juarez Damon DDS [address] [place], [place] [phone] Bone spicules of jaw (Primary Dx) Social [...] Sign Reading Time Taken Comments Blood Pressure 120/76 01/01/2025 2:53 PM EST Pulse - - Temperature - - Respiratory Rate - - Oxygen Saturation - - Inhaled Oxygen Concentration - - Weight - - Height - - Body Mass Index - - documented in this encounter Progress Notes * Juarez Damon DDS - 01/01/2025 2:30 PM EST Pt presents for removal of bone spicule of extracted # 11 small canine eminence . Removed, pt satisfied . Joelle requested consultation with Dr. Angeles about possible treatment on existing gema. Incisiveteeth. Internal referral planned. [place] Consultation / Dr. Agneles Parts Consultant : Sherry Cronin Dentist: Dr. Damon documented in this encounter Plan of Treatment Upcoming Encounters Date Type Department Care Team (Late st Contact Info) Description 01/08/2025 11:00 AM EST Medication Management [facility] [address] [place] [address] Vaishali Minor, PharmD [address] [place], [place] [phone] 01/17/2025 1:30 PM EDT Office Visit [facility] ADULT DENTAL [address] [place] [address] Everett Angeles, YENI [address] [place] [address] 02/19/2025 1:00 PM EDT Office Visit [facility] [address] [place] [address] Sepideh Hopkins ANP [address] [place], [place] 05/20/2025 1:00 PM EDT Office Visit [facility] ADULT DENTAL [address] [place] [address] Linsey Dawkins documented as of this encounter Procedures Procedure Name Priority Date/Time Associated Diagnosis Comments RE-EVAL - POST-OP OFFICE VISIT Routine 01/01/2025 2:30 PM EST documented in this encounter Visit Diagnoses Diagnosis Bone spicules of jaw- Primary documented in this encounter Additional Health Concerns Assessment Noted Time PHQ-9 Depression Total Score: 5 11/23/19 1:05 PM EST documented as of this encounter Care Teams Harvest Contractor Relationship Specialty Start Date End Date Sepideh Hopkins ANP [address] [place] [address] PCP - General Family Medicine 07/07/20 Vaishali Minor PharmD [address] [place] [address] Pharmacist Internal Medicine 10/29/24 documented as of this encounter
--- OUTSIDE RECORDS SUMMARY | 2025-01-01 16:39 | XMS_ITS | Encounter Summary ---
Author Organization [employer] Address 75 [facility] 7t [place] [address] Care Team Providers Care Fac Engineer Name Role Phone Sepideh Hopkins Primary Care Provider [phone] Vaishali Minor PharmD Unavailable [phone] Reason for Visit * Reason Comments Care Coordination Outreach Encounter Details Date Type Department Care Team (Latest Contact Info) Description 01/01/2025 Patient Outreach [facility] [address] [place], [place] [phone] Sepideh Hopkins ANP [address] [place] [address] Care Coordination (Outreach) Social History Tobacco Use [...] encounter Progress Notes * Xena Mckeon - 01/01/2025 1:39 PM EST CHW Xena Mckeon placed outbound call to patient to follow up on SDOH needs. Patient's name, and address confirmed. Patient states is doing well. Patient was not able to talk at the moment, was going to a appointment. documented in this encounter Plan of Treatment Upcoming Encounters Date Type Department Care Team (Late st Contact Info) Description 01/08/2025 11:00 AM EST Medication Management [facility] [address] [place] [address] Vaishali Minor, PharmD [address] [place] [address] 01/17/2025 1:30 PM EDT Office Visit [facility] ADULT DENTAL [address] [place] [address] Everett Angeles, DMD [address] [place] [address] 02/19/2025 1:00 PM EDT Office Visit [facility] [address] [place] [address] Sepideh Hopkins ANP [address] [place] [address] 05/20/2025 1:00 PM EDT Office Visit [facility] ADULT DENTAL [address] [place] [address] Linsey Dawkins documented as of this encounter Visit Diagnoses Not on filedocumented in this encounter Additional Health Concerns Assessment Noted Time PHQ-9 Depression Total Score: 5 11/23/19 25 1:05 PM EST documented as of this encounter Care Teams Fac Engineer Relationship Specialty Start Date End Date Sepideh Hopkins ANP [address] [place] [address] PCP - General Family Medicine 07/07/20 Vaishali Minor PharmD [address] [place] [address] Pharmacist Internal Medicine 10/29/24 documented as of this encounter
--- OUTSIDE RECORDS SUMMARY | 2025-01-01 16:39 | XMS_ITS | Encounter Summary ---
Author Organization [employer] Address [address] [facility] 7t [place] [address] Care Team Providers Care Esl Instructional Assistant Name Role Phone Sepideh Hopkins Primary Care Provider [phone] Vaishali Minor PharmD Unavailable [phone] Reason for Visit * Reason Comments Med Refill Encounter Details Date Type Department Care Team ([facility] st Contact Info) Description 12/14/2024 Refill [facility] [address] [place], [place] [phone] Sepideh Hopkins ANP [address] [place], [place] [phone] Diabetic polyneuropathy associated with type 2 diabetes mellitus (CMS/HCC) (Primary Dx) Social History Tobacco Use [...] encounter Miscellaneous Notes * Telephone Encounter - JAVI Hill - 12/17/2024 3:19 PM EST [employer] update on gabapentin sig documented in this encounter Plan of Treatment Upcoming Encounters Date Type Department Care Team (Late st Contact Info) Description 01/08/2025 11:00 AM EST Medication Management [facility] [address] [place] [address] Vaishali Minor, PharmD [address] [place] [address] 01/17/2025 1:30 PM EDT Office Visit [facility] ADULT DENTAL [address] [place] [address] Everett Angeles, DMD [address] [place] [address] 02/19/2025 1:00 PM EDT Office Visit [facility] MED[facility] [address] [place] [address] Sepideh Hopkins ANP [address] [place] [address] 05/20/2025 1:00 PM EDT Office Visit [facility] ADULT DENTAL [address] [place] [address] Linsey Dawkins documented as of this encounter Visit Diagnoses Diagnosis Diabetic polyneuropathy associated with type 2 diabetes mellitus (CMS/HCC)- Primary documented in this encounter Additional Health Concerns Assessment Noted Time PHQ-9 Depression Total Score: 5 11/23/19 25 1:05 PM EST documented as of this encounter Care Teams Esl Instructional Assistant Relationship Specialty Start Date End Date Sepideh Hopkins ANP [address] [place] [address] PCP - General Family Medicine 07/07/20 Vaishali Minor PharmD [address] [place] [address] Pharmacist Internal Medicine 10/29/24 documented as of this encounter
--- OUTSIDE RECORDS SUMMARY | 2025-01-01 16:40 | XMS_ITS | Encounter Summary ---
Author Organization [employer] Address [address] [facility] [address] h Floor [place] [id number] Care Team Providers Care Wind Field Service Manager Name Role Phone Sepideh Hopkins Primary Care Provider [phone] Vaishali Minor PharmD Unavailable [phone] Encounter Details Date Type Department Care Team (Late st Contact Info) Description 10/03/2023 Orders Only [facility] [address] [place] [id number] Sepideh Hopkins ANP [address] [place] [address] Social History Tobacco Use Types Packs/Day Years [...] EST Medication Management [facility] [address] [place] [phone] Vaishali Minor, PharmD [address] [place] [address] 01/17/2025 1:30 PM EDT Office Visit [facility] ADULT DENT[facility] [address] [place], [place] [phone] Everett Angeles, DMD [address] [place] [address] 02/19/2025 1:00 PM EDT Office Visit [facility] [address] [place] [address] Sepideh Hopkins ANP [address] [place] [address] 05/20/2025 1:00 PM EDT Office Visit [facility] [address] [place], [place] [phone] Linsey aDwkins documented as of this encounter Visit Diagnoses Not on filedocumented in this encounter Care Teams Wind Field Service Manager Relationship Specialty Start Date End Date Sepideh Hopkins ANP [address] [place] [phone] PCP - General Family Medicine 07/07/20 Vaishali Minor PharmD [address] [place] [address] [phone] Pharmacist Internal Medicine 10/29/24 documented as of this encounter
--- OUTSIDE RECORDS SUMMARY | 2025-01-01 16:40 | XMS_ITS | Encounter Summary ---
Author Organization [employer] Address [address] [facility] [address] [place] [address] Care Team Providers Care Date Puller Name Role Phone Sepideh Hopkins Primary Care Provider [phone] Vaishali Minor PharmD Unavailable [phone] Reason for Visit * Reason Comments Med Refill Encounter Details Date Type Department Care Team (Late st Contact Info) Description 01/05/2023 Refill [facility] [address] [place] [address] Sepideh Hopkins ANP [address] [place] [address] Social History Tobacco Use Types Packs/Day Years [...] Upcoming Encounters Date Type Department Care Team ([facility] Contact Info) Description 01/08/2025 11:00 AM EST Medication Management [facility] MED[facility]INE [address] [place] [address] Vaishali Minor, PharmD [address] [place] [phone] 01/17/2025 1:30 PM EDT Office Visit [facility] ADULT DENTAL [address] [place] [address] Everett Angeles, DMD [address] [place] [address] 02/19/2025 1:00 PM EDT Office Visit [facility] MEDICINE [address] [place] [phone] Sepideh Hopkins ANP [address] [place] [address] 05/20/2025 1:00 PM EDT Office Visit [facility] ADULT DENTAL [address] [place] [phone] Linsey Dawkins documented as of this encounter Visit Diagnoses Not on filedocumented in this encounter Care Teams Date Puller Relationship Specialty Start Date End Date Sepideh Hopkins ANP [address] [place] [phone] PCP - General Family Medicine 07/07/20 Vaishali Minor PharmD [address] [place] [phone] Pharmacist Internal Medicine 10/29/24 documented as of this encounter
--- OUTSIDE RECORDS SUMMARY | 2025-01-01 16:40 | XMS_ITS | Clinical Summary ---
Author Organization [employer] Address [address] [place] [address] Care Team Providers Care Cost Accounting Manager Name Role Phone Neil Bernard JAVI Primary Care Provider Vaishali Minor PharmD Unavailable +- [phone] Allergies No known active allergies Medications * [...] 2 diabetes mellitus with hyperglycemia (CMS/[facility]),longterm (current) use of insulin (CMS/[facility]) USE FOUR TIMES DAILY 100 each 024 Active Lancets (Unilet Micro-Thin 33G) miscIndications: Type 2 diabetes mellitus with hyperglycemia (CMS/[facility]) TEST BLOOD SUGAR THREE TIMES DAILY [...] DAILY 48 g 1 Active Continuous Glucose Cathode Maker (FreeStyle Dagmar 2 Guffey) deviceIndication s:Type 2 diabetes mellitus with hyperlipidemia (CMS/HCC) ([facility]) Scan sensor every 8 hours 1 each Active Continuous Glucose Sensor (FreeStyle Dagmar 2 Sensor) miscIndications: Type 2 diabetes mellitus with hyperlipidemia (CMS/HCC) ([facility]) Apply 1 sensor every 14 days 2 each Active glucose blood (FreeStyle Precision Nader Test) test stripIndications :Type 2 diabetes mellitus with hyperlipidemia (CMS/HCC) ([facility]) Use to test blood sugar 3 [...] hr tabletIndication s:Hypertension associated with diabetes (CMS/HCC) ([facility]) TAKE 1 TABLET BY MOUTH EVERY MORNING DO NOT BREAK, CRUSH, DISSOLVE OR CHEW 90 tablet 1 025 Active sertraline (Zoloft) 100 MG tablet Take 1 tablet by mouth once daily Active sodium chloride (Portage) 0.65 % nasal sprayIndications :Nasal congestion 2 [...] cations:Type 2 diabetes mellitus with hyperlipidemia (CMS/HCC) ([facility]) Inject 1 mg under the skin 1 (one) time per week. 3 mL 025 Active pioglitazone (Actos) 30 MG tabletIndication s:Type 2 diabetes mellitus with hyperlipidemia (CMS/HCC) ([facility]) Take 1 tablet (30 mg) by mouth Once per day. 90 tablet 025 Active gabapentin (Neurontin) 300 MG capsuleIndicatio ns:Diabetic polyneuropathy associated with type 2 diabetes mellitus ([facility]/HCC) Take 1 capsule Am and at lunch, and 2 capsules at bedtime 120 capsule 2 025 Active glucose (Glutose) 40 % gel oral gelIndications:T ype 2 diabetes mellitus with hyperlipidemia (CMS/HCC) ([facility]) Use as needed for low blood sugar 45 g 11 025 Active insulin aspart FlexPen (NovoLOG) 100 UNIT/ML penIndications:T ype 2 diabetes mellitus with hyperlipidemia (CMS/HCC) ([facility]) INJECT SUBCUTANEOUSLY 6 UNITS BEFORE BREAKFAST AND 16 UNITS BEFORE DINNER. DO NOT USE IF SKIPPING MEAL. 15 mL 025 Active insulin glargine (Lantus SoloStar) 100 UNIT/ML penIndications:T ype 2 diabetes mellitus with hyperlipidemia (CMS/HCC) ([facility]) INJECT SUBCUTANEOUSLY 38 UNITS ONCE DAILY 15 mL 025 Active glucose blood (FREESTYLE LITE) test strip 1 each by Other route 4 times daily. Test blood sugar 4 times a day 100 each 11 023 2024 Discontinued(M ed list cleanup (will not trigger notification to Pharmacy)) cholecalciferol VITAMIN D (Vitamin D-3) 50 MCG (1999 UT) tablet TAKE 1 TABLET BY MOUTH EVERY MORNING 90 tablet 1 024 2024 Discontinued pioglitazone (Actos) 15 MG tabletIndication s:Type 2 diabetes mellitus with hyperlipidemia (CMS/HCC) ([facility]) TAKE 1 TABLET BY MOUTH EVERY MORNING 90 tablet 1 024 2024 Discontinued buPROPion SR (Wellbutrin SR) 100 MG 12 hr tabletIndication s:Mixed anxiety and depressive disorder TAKE 1 TABLET BY MOUTH EVERY MORNING 30 tablet 2 024 2024 Discontinued gabapentin (Neurontin) 300 MG capsule TAKE 2 CAPSULES BY MOUTH THREE TIMES DAILY IN THE MORNING, EVENING AND BEDTIME 180 capsule 025 2024 Discontinued Ozempic, 1 MG/DOSE, 4 MG/3ML solution pen-injector Inject 1 MG SUBCUTANEOUSLY EVERY 7 DAYS IN THE ABDOMEN, THIGHS OR UPPER ARM. ROTATE INJECTION SITES. 024 2024 Discontinued(D ose adjustment) insulin glargine (Lantus SoloStar) 100 UNIT/ML penIndications:T ype 2 diabetes mellitus with hyperlipidemia (CMS/HCC) ([facility]) INJECT SUBCUTANEOUSLY 54 UNITS ONCE DAILY 15 mL 5 025 2024 Discontinued insulin aspart FlexPen (NovoLOG) 100 UNIT/ML penIndications:T ype 2 diabetes mellitus with hyperlipidemia (CMS/HCC) ([facility]) INJECT SUBCUTANEOUSLY 8 UNITS BEFORE BREAKFAST AND [...] cations:Type 2 diabetes mellitus with hyperlipidemia (CMS/HCC) ([facility]) Inject 0.75 mL (2 mg) under the skin 1 (one) time per week. 3 mL 1 025 2024 Discontinued(S angela effects) insulin glargine (Lantus SoloStar) 100 UNIT/ML penIndications:T ype 2 diabetes mellitus with hyperlipidemia (CMS/HCC) ([facility]) INJECT SUBCUTANEOUSLY 44 UNITS ONCE DAILY 15 mL 3 025 2024 Discontinued pioglitazone (Actos) 15 MG tabletIndication s:Type 2 diabetes mellitus with hyperlipidemia (CMS/HCC) ([facility]) TAKE 1 TABLET BY MOUTH EVERY MORNING 90 tablet 1 025 2024 Discontinued(D ose adjustment) insulin aspart FlexPen (NovoLOG) 100 UNIT/ML penIndications:T ype 2 diabetes mellitus with hyperlipidemia (CMS/HCC) ([facility]) INJECT SUBCUTANEOUSLY 6 UNITS BEFORE BREAKFAST AND 14 UNITS BEFORE DINNER. DO NOT USE IF SKIPPING MEAL. 025 2024 Discontinued(D ose adjustment) insulin glargine (Lantus SoloStar) 100 UNIT/ML penIndications:T ype 2 diabetes mellitus with hyperlipidemia (CMS/HCC) ([facility]) INJECT SUBCUTANEOUSLY 48 UNITS ONCE DAILY 025 2024 Discontinued insulin aspart FlexPen (NovoLOG) 100 UNIT/ML penIndications:T ype 2 diabetes mellitus with hyperlipidemia ([facility]/HCC) ([facility]) INJECT SUBCUTANEOUSLY 10 UNITS BEFORE BREAKFAST AND 20 UNITS BEFORE DINNER. DO NOT USE IF SKIPPING MEAL. 15 mL 3 025 2024 Discontinued Hospital, Clinic, or Other Facility Administered Medication [...] Encounters Date Type Department Care Team Description 01/01/2025 2:30 PM EST Office Visit [facility] ADULT DENTAL [address] [place], [place] [phone] Juarez Damon DDS Bone spicules of jaw (Primary Dx) 01/01/2025 Patient Outreach [facility] CHC MED & PEDS [address] [place], [place] [phone] Neil Bernard ANP Care Coordination (Outreach) 12/31/2024 Telephone [facility] MEDICINE [address] [place] [address] Neil Bernard ANP Call Back Request; Medication Question 12/17/2024 Telephone [facility] MEDICINE [address] [place] [address] Sharon Garrison RN Medication Change 12/17/[address] [address] Vaishali Minor, Leonidas 12/17/2024 Orders Only [facility] MEDICINE [address] [place] [address] Neil Bernard ANP 12/14/2024 Refill [facility] MEDICINE [address] [place] [address] 259[address] Neil Bernard ANP Diabetic polyneuropathy associated with type 2 diabetes mellitus (CMS/HCC) (Primary Dx) 12/14/2024 Patient Outreach [facility] P[facility] [address] [place], [place] [phone] Neil Bernard ANP Care Coordination (Outreach) 12/13/2024 Telephone [facility] MEDICINE [address] [place] [address] Neil Bernard ANP Durable Medical Equipment (Shower chair) 12/13/2024 Refill [facility] MEDICINE [address] [place] [address] Neil Bernard ANP Type 2 diabetes mellitus with hyperlipidemia (CMS/HCC) (CMS/HCC) 12/11/2024 1:00 PM EST Office Visit [facility] OPTOMETRY [address] [place] [address] Shreya Roberto, OD Type 2 diabetes mellitus without complication, with long-term current use of insulin ([facility]) (Primary Dx); Adult vitelliform macular dystrophy; Dry eyes; Presbyopia; Nuclear sclerotic cataract of both eyes; 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 12/10/2024 9:00 AM EST Immunization [facility] MEDICINE [address] [place] [address] Nano Baxter LPN Encounter for immunization (Primary Dx) 12/10/2024 Telephone [facility] MEDICINE [address] [place] [address] Kesha Wilkinson MA Joana recall 12/10/2024 Telephone [facility] MEDICINE [address] [place] [address], [place] [address] Vaishali Minor, PharmD 12/10/2024 Travel 12/08/2024 Refill [facility] MEDICINE [address] [place] [phone] Neil Bernard ANP Mixed anxiety and depressive disorder 11/30/2024 12:00 PM EST Office Visit [facility] ADULT DENTAL [address] [place] [address] Juarez Damon, CHRIS Bone spicules of jaw (Primary Dx) 11/30/2024 11:30 AM EST Office Visit [facility] ADULT DENTAL [address] [place] [address] Sadaf Hernandez, CHRIS Alveolitis of maxilla (Primary Dx) 11/30/2024 Patient Outreach [facility] [address] [place] [address] Neil Bernard ANP Care Coordination (Outreach) 11/23/2024 1:00 PM EST Telemedicine [facility] MEDICINE [address] [place] [phone] Neil Bernard ANP Dizziness (Primary Dx); Chronic maxillary sinusitis 11/23/2024 Travel 11/23/2024 Telephone [facility] MEDICINE [address] [place] [address] Taylor Dai, RN Results 11/23/2024 Orders Only [facility] MEDICINE [address] [place] [address] Neil Bernard ANP Chronic maxillary sinusitis (Primary Dx); Nasal congestion 11/20/2024 2:30 PM EST Telemedicine [facility] MEDICINE [address] [place] [address] Vaishali Minor, PharmD Type 2 diabetes mellitus with hyperlipidemia (CMS/HCC) (CMS/HCC) (Primary Dx) 11/15/2024 Patient Outreach [facility] [address] [place] [address] Neil Bernard ANP Care Coordination (Outreach) 11/15/2024 Refill [facility] MEDICINE [address] [place] [address] Neil Bernard ANP 11/14/2024 1:00 PM EST Office Visit [facility] ADULT DENTAL [address] [place] [address] Linsey Dawkins Dental calculus (Primary Dx); Dental plaque; Bone spicules of jaw 11/13/2024 Refill [facility] MEDICINE [address] [place] [address] Neil Bernard ANP Hypertension associated with diabetes (CMS/HCC) (CMS/HCC) 11/12/2024 2:20 PM EST Office Visit [facility] WALK-IN CENTER [address] [place] [address] Neil Bernard ANP Hypotension, unspecified hypotension type (Primary Dx) 11/12/2024 Travel 11/11/2024 Refill [facility] MEDICINE [address] [place] [address] Neil Bernard ANP Neck pain 10/30/2024 9:30 AM EST Office Visit [facility] ADULT DENTAL [address] [place] [address] Juarez Damon DDS Alveolitis of maxilla (Primary Dx) 10/30/2024 Patient Outreach [facility] [address] [place] [address] Neil Bernard ANP Care Coordination (Outreach) 10/29/2024 Telephone [facility] MEDICINE [address] [place] [address] Vaishali Minor, PharmD 10/26/2024 Telephone [facility] MEDICINE [address] [place] [phone] Vaishali Minor, PharmD 10/26/2024 Travel 10/25/2024 2:15 PM EST Office Visit [facility] MEDICINE [address] [place] [address] Neil Bernard ANP Type 2 diabetes mellitus with hyperlipidemia ([facility]) ([facility]) (Primary Dx); Primary hypertension; Dizziness 10/25/2024 Travel 10/24/2024 1:30 PM EST Office Visit [facility] ADULT DENTAL [address] [place] [address] Juarez Damon DDS Extensive root caries lesions involving dentin (Primary Dx) 10/24/2024 Patient Outreach [facility] [address] [place] [address] Neil Bernard ANP Care Coordination (Outreach) 10/22/2024 Telephone [facility] MEDICINE [address] [place] [address] 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, spray dry operator; CGM Initiation 10/19/2024 Refill [facility] MEDICINE [address] [place] [address] Neil Bernard ANP 10/18/2024 Patient Outreach [facility] [address] [place] [address] Neil Bernard ANP Care Coordination (Outreach) 10/18/2024 Telephone [facility] [address] [place] [address] Sepideh Clements RN Care Coordination ([facility] initial assessment/ enrollment) 10/16/2024 Patient Outreach [facility] [address] [place] [address] Neil Bernard ANP Care Coordination (Outreach) 10/15/2024 Refill [facility] MEDICINE [address] [place] [address] Neil Bernard ANP Allergic rhinitis, unspecified seasonality, unspecified trigger 10/14/2024 Refill [facility] MEDICINE [address] [place] [address] Neil Bernard ANP History of pulmonary embolism; Allergic rhinitis, unspecified seasonality, unspecified trigger 10/12/2024 Telephone [facility] MEDICINE [address] [place] [address] eNil Bernard ANP CRITICAL RESULT 10/10/2024 Patient Outreach [facility] MEDICINE [address] [place] [address] Neil Bernard ANP Care Coordination (Outreach) 10/10/2024 Patient Outreach [facility] MEDICINE [address] [place] [address] 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, 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 [employer] ([employer]) 10/09/2024 Orders Only GENERIC EXTERNAL DATA DEPARTMENT Provider, Generic External Data 10/09/[address] [address] Neil Bernard ANP Nurse Triage; Prior Authorization 10/08/2024 Telephone [facility] [address] [place] [address] Veronica Gupta, MENDEL Results 10/04/2024 Orders Only GENERIC EXTERNAL DATA DEPARTMENT Provider, Generic External Data 10/01/2024 11:15 AM EST Office Visit [facility] MEDICINE [address] [place] [address] Neil Bernard ANP Chronic daily headache (Primary Dx); Type 2 diabetes mellitus with hyperlipidemia ([facility]) ([facility]) 10/01/2024 Travel 10/01/2024 Telephone [facility] MEDICINE [address] [place] [address] Neil Bernard ANP Nurse Triage from Last 3 Months Immunizations Name Administration Dates Next Due Hep B, adult 06/26/2012,06/18/2003,05/16/2003 Influenza injectable quadriv alent IIV4 with preservative 09/13/2016 Influenza injectable quadriv alent preservative free 11/18/2023,09/03/2022,09/17/2020,10/18 Influenza, IIV3, injectable 09/09/2014, 1 Influenza, Injectable, MDCK, preservative free 10/03/2015 Influenza, Split (incl. bethanie fied surface antigen) 07/12/2013,08/22/2012 Influenza, seasonal, injecta ble, preservative free 08/17/2024 Moderna Covid-19 Vaccine 12+ 03/16/2022,02/19/20,01/21/2021 Pfizer Covid-19 Vaccine 12+ 08/17/2024 Pneumococcal Conjugate [...] Pressure 120/76 01/01/2025 2:53 PM EST Pulse 97 12/10/2024 11:45 AM EST [...] Description 01/08/2025 11:00 AM EST Medication Management [facility] MEDICINE [address] [place] [address] Vaishali Minor, PharmD [address] [place] [address] 01/17/2025 1:30 PM EDT Office Visit [facility] ADULT DENTAL [address] [place] [address] Everett Angeles, DMD [address] [place] [address] 02/19/2025 1:00 PM EDT Office Visit [facility] MEDICINE [address] [place] [address] Neil Bernard, ANP [address] [place] [address] 05/20/2025 1:00 PM EDT Office Visit [facility] ADULT DENTAL [address] [place] [address] Linsey Dakwins Health Maintenance Due Date Last Done Comments CT Colonography 1961 FIT DNA/Cologuard 1961 FIT 1961 FOBT 1961 HIV Screening 1961 Sigmoidoscopy 1961 Diabetes: Foot Exam 1971 Hepatitis C Screening 1979 Pap Smear 1982 HPV/Cotest 1991 RSV Patients and Patients Aged 60 years or older (1 - Risk 60-74 years 1-dose series) 2021 Diabetes: Hemoglobin A1C 02/10/2025 025, 08/17/2024, 05/15/2024, [...] 09/03/2022, 08/04/2021 Depression Screening 11/23/2025 11/23/2024, 11/23/19 Lipid Panel 12/17/2025 12/17/2024, 11/09, 01/27/2022, Additional history exists Tobacco Screening 01/01/2026 01/01/2025 Eye Exam 12/11/2026 12/11/2024, 02/2025, 12/11/2024, Additional [...] OFFICE VISIT Routine 01/01/2025 2:30 PM EST VASC US CAROTID ARTERY DUPLEX BILATERAL Routine 12/27/2024 10:39 AM EST LIPID PANEL, STANDARD Routine 12/17/2024 6:58 AM EST HEPATIC FUNCTION PANEL Routine 12/17/2024 6:58 AM EST OCT, RETINA - OU - BOTH EYES Routine 12/11/2024 1:00 PM EST Adult vitelliform macular dystrophy NO CHARGE VISIT Routine 11/30/2024 12:00 PM EST INTRAORAL - PERIAPICAL FIRST RADIOGRAPHIC IMAGE Routine 11/30/2024 11:30 AM EST Alveolitis of maxilla LIMITED ORAL EVALUATION - PROBLEM FOCUSED Routine 11/30/2024 11:30 AM EST Alveolitis of maxilla INTRAORAL - PERIAPICAL FIRST RADIOGRAPHIC IMAGE Routine 11/14/2024 1:00 PM EST CASE PRESENTATION, DETAILED AND EXTENSIVE TREATMENT PLANNING Routine 11/14/2024 [...] IMAGE Routine 10/30/2024 9:30 AM EST UR ALVEOLOPLASTY IN CONJ W/ EXTRACTIONS - 1-3 TEETH, PER QUAD Routine 10/24/2024 1:30 PM EST UL ALVEOLOPLASTY IN CONJ W/ EXTRACTIONS - 1-3 TEETH, PER QUAD Routine 10/24/2024 1:30 PM EST 11 EXTRACTION, ERUPTED TOOTH REQ REMOVAL OF BONE AND/OR SECTIONING OF TOOTH Routine 10/24/2024 1:30 PM EST 6 EXTRACTION, ERUPTED TOOTH REQ REMOVAL OF BONE AND/OR SECTIONING OF TOOTH Routine 10/24/2024 1:30 PM EST 1 EXTRACTION, ERUPTED TOOTH OR EXPOSED ROOT (ELEVATION/FORCEPS REMOVAL) Routine 10/24/2024 1:30 PM EST 15 EXTRACTION, ERUPTED TOOTH OR EXPOSED ROOT (ELEVATION/FORCEPS REMOVAL) Routine 10/24/2024 1:30 PM EST 7 EXTRACTION, ERUPTED TOOTH OR EXPOSED ROOT (ELEVATION/FORCEPS REMOVAL) Routine 10/24/2024 1:30 PM EST 8 EXTRACTION, ERUPTED TOOTH OR EXPOSED ROOT (ELEVATION/FORCEPS REMOVAL) Routine 10/24/2024 1:30 PM EST 9 EXTRACTION, ERUPTED TOOTH OR EXPOSED ROOT (ELEVATION/FORCEPS REMOVAL) Routine 10/24/2024 1:[address] HEAD WO CONTRAST Routine 10/12/2024 1 :24 PM EST Chronic daily headache ALBUMIN, RANDOM [...] WHOLE BLOOD Routine 10/04/2024 9:36 PM EST INTRAORAL - COMPLETE SERIES OF RADIOGRAPHIC IMAGES Routine 09/24/2024 1:00 PM EST PERIODIC ORAL EVALUATION - ESTABLISHED PATIENT Routine 09/24/2024 1:00 PM EST BI MAMMOGRAM SCREENING TOMOSYNTHESIS BILATERAL Routine 06/06/2024 1:12 PM EDT HM COLONOSCOPY Routine 04/15/2015 from Last 3 Months or Most Recently Relevant to Health Maintenance Results * VASC Carotid Artery Duplex Bilateral (12/27/2024 10:39 AM EST) 12/27/2024 10:3 9 AM EST Narrative [facility] - 12/27/2024 10:40 AM EST ? [facility] ?[address] ?[place] [address] ? Ultrasound Report ? Signed ? Patient: Louis,Joelle I ?MR#: [id number] ?? [id number] ? : 1960 ?Acct:[id number] ? Age/Sex: 64 / F ?ADM Date: /19/25 ? Loc: HO.US ? Attending Dr: Rashid Recinos MD ? Ordering Physician: Rashid Recinos MD ?? Date of Service: 12/26/24 ?? Procedure(s): US carotid duplex BI ?? Accession Number(s): [id number] ? cc: NEIL BERNARD NP; Rashid Recinos [...] DD/ 1039 ? TD/TT: 12/27/24 1039 ? Plant Operations Worker: ? Procedure Note Papi, Opal - 12/27/2024 [place] [address] Ultrasound Report Signed Patient: Joelle Myers IMR#: [id number] : 1960cct:[id number] Age/Sex: 64 / FADM Date: 12/26/24 Loc: HO.US Attending Dr: Rashid Recinos MD Ordering Physician: Rashid Recinos MD Date of Service: 12/26/24 Procedure(s): US carotid duplex BI Accession Number(s): [id number] cc: NEIL BERNARD SUBMARINE CABLE EQUIPMENT TECHNICIAN; Rashid Recinos MD CLINICAL HISTORY: I65.23 - [...] 12/27/24 1039 DD/ 1039 TD/TT: 12/27/24 1039 Plant Operations Worker: [facility] External Provider CV VASC ULAR PROCEDURES Final Result Performing Organization Address [facility] Co de Phone Number [facility] [address] [place] [phone] * Hepatic Function Panel (12/17/2024 6:58 AM EST) Bilirubin, Total 0.4 0.0 - 1.0 mg/dL [facility] Bilirubin, Direct 0.1 0.0 - 0.5 mg/dL [facility] Aspartate Amino Transferase 20 5 - 31 U/L [facility] Alanine Aminotransferase 17 0 - 31 U/L [facility] Total Protein 6.9 6.5 - 8.0 g/dL [facility] Albumin Level 4.2 3.5 - 5.0 g/dL [facility] Alkaline Phosphatase 84 39 - 117 U/L [facility] 12/17/2024 6:58 AM EST 12/17/2024 6:58 AM EST Neil Sandeep [facility] BLOOD ORDERABLES Final Resul t Performing Organization Address [facility] Co de Phone Number [facility] [address] [place] [phone] * Lipid Panel, Standard (12/17/2024 6:58 AM EST) Triglycerides 58 <150 mg/dL [facility] Comment:Desirable Triglyceri de: less than 150 mg/dLBorderline High Triglyceride 150-199 mg/dLHigh Triglyceride: 200-499 mg/dLVery High Triglyceride: greater than or equal to 5OO mg/dL Cholesterol 106 <200 mg/dL [facility] Comment:Desirable Cholestero l: less than 200 mg/dLBorderline High Cholesterol: 200-239 mg/dLHigh Cholesterol: greater than 239 mg/dL LDL Cholesterol Calculated 45 <100 mg/dL [facility] Comment:Desirable LDL: less than 100 mg/dLNear Optimal/Above Optimal LDL: 110- 129 mg/dLBorderline High LDL: 130-159 mg/dLHigh LDL: 160-189 mg/dLVery High LDL: greater than or equal to 190 mg/dL HDL Cholesterol 50 >40 mg/dL [facility] Comment:Desirable HDL: great er than 40 mg/dL Note: This HDL assay may give artificially low results in patients with liver disease. 12/17/2024 6:58 AM EST 12/17/2024 6:58 AM EST us Neil [facility] BLOOD ORDERABLES Final Resul t [facility] [address] [place] [phone] * (ABNORMAL) POCT A1C (11/12/2024 1:38 PM EST) Hemoglobin A1C 9.4(A) 4.0 - 6.0 % QC Media Lot # [id number] Lot# Expiration Date ,522 Blood 11/12/2024 1:38 PM EST us Neil Bernard ANP POINT OF CARE TEST ENTER/EDIT OR DERABLES Final Result * CT Head w/o Contrast (10/12/2024 1:24 PM EST) Anatomical Region Laterality Modality Head, Neck Computed Tomogra phy 10/12/2024 1:24 PM EST Narrative 11/21/2024 2:28 AM EST ? [facility] ?[address] ?[place] [address] ? CT Scan Report ? Signed ? Patient: Louis,Joelle I ?MR#: [id number] ?? [id number] ? : 1960 ?Acct:[id number] ? Age/Sex: 64 / F ?ADM Date: 10/12/24 ? Loc: HO.CT ? Attending Dr: Neil Bernard NP ? Ordering Physician: NEIL BERNARD NP ?? Date of Service: 10/12/24 ?? Procedure(s): CT head/brain wo IV con ?? Accession Number(s): [id number] ? cc: NEIL BERNARD NP ? Report Number: ?? [id number]: Total DLP = ??615.00 mGy-cm ?? EXAMINATION: [...] DD/ 1324 ? TD/TT: 10/12/24 1334 ? Plant Operations Worker: HANNA ? Procedure Note Papi, Image - 11/21/[address] [place] [address] [address] Scan Report Signed Patient: Joelle Myers IMR#: [id number] : 1Acct:[id number] Age/Sex: 64 / FADM Date: 10/12/24 Loc: HO.CT Attending Dr: Neil Bernard NP Ordering Physician: NEIL BERNARD NP Date of Service: 10/12/24 Procedure(s): CT head/brain wo IV con Accession Number(s): [id number] cc: NEIL BERNARD NP Report Number: [id number]: Total DLP = 615.00 mGy-cm EXAMINATION: CT [...] 11/21/24 0225 DD/ 1324 TD/TT: 10/12/24 1334 Plant Operations Worker: HANNA Neil [facility] PROCEDURES Final Result * Albumin, Random Urine W/Creatinine (10/12/2024 9:52 AM EST) Creatinine, Urine 41.64 mg/dL [facility] Microalbumin Urine 6.0 mg/L [facility] Microalbum Creatinine Ratio Ur 14.4 <30 ug/mg cr [facility] Comment:Albumin/Creatinine R atio Reference Ranges: Normal: < 30 ug/mg creatinine Microalbuminuria: 30 - 300 ug/mg creatinineClinical Albuminuria: > 300 ug/mg creatinine Urine (Urine, Random) 10/12/2024 9:52 AM EST 10/12/2024 10:49 AM EST us Neil Bernard ANP LAB URINE ORDERABLES Final Resul t Performing Organization Address City/[facility] Co de Phone Number [facility] [address] [place] [address] [phone] * (ABNORMAL) Basic Metabolic Panel (10/12/2024 9:52 AM EST) Sodium 137 135 - 145 mmol/L [facility] Potassium 4.2 3.3 - 5.1 mmol/L [facility] Chloride 102 96 - 108 mmol/L [facility] Carbon Dioxide 27 22 - 29 mmol/L [facility] Anion Gap 12 12 - 20 [facility] Urea Nitrogen (BUN) 19(H) 9 - 16 mg/dL [facility] Creatinine, Serum 1.33 0.5 - 1.4 mg/dL [facility] Estimated Glomerular Filt Rate 40 [facility] Comment:Chronic Kidney Disea se: Estimated GFR < 60 mL/min/1.52t9Uqtjdv Kidney Disease: Estimated GFR < 15 mL/min/1.73m2 Glucose 390(HH) 60 - 115 mg/dL [facility] Comment:Critical value for t est(s): GLUR Results called to asha back by:ÁLVARO BETHEA Person calling: KITVV Date:10/12/2024 Time:12:05 Calcium 11.2(H) 8.4 - 10.2 mg/dL [facility] Blood Venous blood specimen / Unknown 10/12/2024 9:52 AM EST 10/12/2024 10:49 AM EST us Neil Bernard ANP LAB BLOOD ORDERABLES Final Resul t [facility] [address] [place] [address] [phone] * (ABNORMAL) Glucose, Whole Blood (10/09/2024 6:04 PM EST) Only the most recent of3 resultswithin the time period is included. Glucose, Whole Blood 289(H) 60 - 115 mg/dL [facility] Comment:METER #: [id number] 10/09/2024 6:04 PM EST 10/09/2024 6:07 PM EST us Generic External Data Provider LAB BLOOD ORDERAB LES Final Result Performing Organization Address [facility] Co de Phone Number [facility] [address] [place] [phone] * (ABNORMAL) VENOUS BLOOD GAS (10/09/2024 3:08 PM EST) Pathologist [facility] VBG pH 7.36 7.32 - 7.43 [facility] Comment:METER #: [id number] additional_comment: Lawelgadj VBG PCO2 65 mmHg [facility] Comment:METER #: [id number] additional_comment: Cbdelgadj VBG PO2 34 mmHg [facility] Comment:METER #: [id number] additional_comment: Lawelgadj VBG Base Excess 9.7 mmol/L [facility] Comment:METER #: [id number] additional_comment: Cbdelgadj VBG HCO3 37(H) 22 - 26 mmol/L [facility] Comment:METER #: [id number] additional_comment: Cbdelgadj O2 Sat, Jer 54.0 % [facility] Comment:METER #: [id number] additional_comment: Cbdelgadj 10/09/2024 3:08 PM EST 10/09/2024 3:19 PM EST us Generic External Data Provider LAB BLOOD ORDERAB LES Final Result Performing Organization Address [facility]/ZIP Co de Phone Number [facility] [address] [place] [address] [phone] * (ABNORMAL) Urinalysis, Complete, with Reflex to Culture (10/09/2024 3:04 PM EST) Color Urine Yellow [facility] Appearance Urine Clear [facility] PH 5.0 5.0 - 9.0 [facility] Glucose Urine UA >=1000(A) Negative mg/dL [facility] Urine Blood Negative Negative [facility] Specific [place] - Urine 1.015 1.005 - 1.025 [facility] Urine Protein Negative Neg-Trace mg/dL [facility] Urine Ketones Negative Negative mg/dL [facility] Nitrite Urine Negative Negative [facility] Leukocyte Esterase Urine Small (1+)(A) Negative [facility] RBC Urine 0-2 0 - 2 /HPF [facility] Urine WBC 6-10(A) 0 - 5 /HPF [facility] Urine Squamous Epithelial Cell 3-5 0 - 2 /HPF [facility] Urine Bacteria None Seen None Seen [facility] Hyaline Casts, Urine 3-5 0 - 2 /LPF [facility] 10/09/2024 3:04 PM EST 10/09/2024 3:07 PM EST Narrative [facility] - 10/09/2024 3:18 PM EST [id number], Clean Catch us Generic External Data Provider LAB URINE ORDERAB LES Final Result Performing Organization Address [facility]/ZIP Co de Phone Number [facility] [address] [place] [address] [phone] * Hold Green Gel (10/09/2024 3:02 PM EST) Only the most recent of2 resultswithin the time period is included. Hold Green Gel See Note [facility] Comment:Specimen held untest ed for 24 hours; Call to requestChemistry testing. 10/09/2024 3:02 PM EST 10/09/2024 3:10 PM EST us Generic External Data Provider HISTORICAL/NON OR DERABLE LABS Final Result Performing Organization Address [facility]/ZIP Co de Phone Number [facility] [address] [place] [address] [phone] * Beta-Hydroxybutyrate (10/09/2024 3:02 PM EST) Pathologist [facility] Beta-Hydroxybut yrate 0.10 0.02 - 0.27 mmol/L [facility] 10/09/2024 3:02 PM EST 10/09/2024 3:07 PM EST Generic External Data Provider LAB BLOOD ORDERAB LES Final Result Performing Organization Address [facility] de Phone Number [facility] [address] [place] [address] [phone] * CBC auto differential (10/09/2024 3:02 PM EST) Only the most recent of2 resultswithin the time period is included. Pathologist [facility] White Blood Count 7.3 4.8 - 10.8 X10*3/uL [facility] Red Blood Count 4.36 4.20 - 5.50 X10*6/uL [facility] Hemoglobin 13.0 12.0 - 16.0 g/dl [facility] Hematocrit 37.5 37.0 - 47.0 % [facility] Mean Corpuscular Volume 86.0 80.0 - 98.0 fL [facility] Mean Corpuscular Hemoglobin 29.8 27.0 - 33.0 pg [facility] Mean Corpuscular HGB Conc 34.7 31.0 - 35.0 g/dl [facility] Red Cell Distribution Width 12.1 11.0 - 16.0 % [facility] Platelet Count 277 160 - 400 X10*3/uL [facility] Mean Platelet Volume 11.3 9.4 - 12.3 fL [facility] Neutrophils Percent Auto 60.5 45 - 73 % [facility] Imm Gran Pct Auto 0.3 0.0 - 0.4 % [facility] Lymphocytes Percent Auto 30.2 20 - 40 % [facility] Monocytes Percent Auto 7.0 2 - 11 % [facility] Eosinophils Percent Auto 1.5 0 - 4 % [facility] Basophils Percent Auto 0.5 0 - 2 % [facility] NRBC Pct Auto 0.0 0.0 - 0.2 /100WBC [facility] Neutrophils Absolute Auto 4.4 2.0 - 8.3 x10*3/uL [facility] Imm Gran Abs Auto 0.02 0.00 - 0.03 X10*3/uL [facility] Lymphocytes Absolute Auto 2.2 1.2 - 4.9 X10*3/uL [facility] Monocytes Absolute Auto 0.5 0.1 - 1.2 X10*3/uL [facility] Eosinophils Absolute Auto 0.1 0.0 - 0.4 X10*3/uL [facility] Basophils Absolute Auto 0.0 0.0 - 0.2 X10*3/uL [facility] NRBC Abs Auto 0.000 0.0 - 0.012 X10*3/uL [facility] 10/09/2024 3:02 PM EST 10/09/2024 3:07 PM EST us Generic External Data Provider LAB BLOOD ORDERAB LES Final Result [facility] [address] [place], [place] [phone] * (ABNORMAL) Magnesium (10/09/2024 3:02 PM EST) Magnesium 1.5(L) 1.6 - 2.6 mg/dL [facility] 10/09/2024 3:02 PM EST 10/09/2024 3:07 PM EST us Generic External Data Provider LAB BLOOD ORDERAB LES Final Result Performing Organization Address City/[facility]/ZIP Co de Phone Number [facility] [address] [place] [address] [phone] * Lipase (10/09/2024 3:02 PM EST) Lipase 42 8 - 78 U/L [facility] 10/09/2024 3:02 PM EST 10/09/2024 3:07 PM EST Generic External Data Provider LAB BLOOD ORDERAB LES Final Result Performing Organization Address [facility] Co de Phone Number [facility] [address] [place] [address] [phone] * (ABNORMAL) Comprehensive Metabolic Panel (10/09/2024 3:02 PM EST) Only the most recent of2 resultswithin the time period is included. Sodium 136 135 - 145 mmol/L [facility] Potassium 5.1 3.3 - 5.1 mmol/L [facility] Chloride 104 96 - 108 mmol/L [facility] Carbon Dioxide 25 22 - 29 mmol/L [facility] Anion Gap 12 12 - 20 [facility] Urea Nitrogen (BUN) 16 9 - 16 mg/dL [facility] Creatinine, Serum 1.64(H) 0.5 - 1.4 mg/dL [facility] Creatinine Clr Calc Pharmacy 32.3 [facility] Comment:Provided height and weight: 160.02 cm,67.4 kg.eGFR (calculated from the MDRD study equation) and eCrCl(calculated from the Cockcroft-Gault equation) are based ondifferent parameters and may not yield comparable results.If eCrCl result is absurd, please check patient'sheight/weight. Estimated Glomerular Filt Rate 32 [facility] Comment:Chronic Kidney Disea se: Estimated GFR < 60 mL/min/1.94x8Gwmaay Kidney Disease: Estimated GFR < 15 mL/min/1.73m2 Glucose 376(HH) 60 - 115 mg/dL [facility] Comment:Critical value for t est GLU: Results called to and readback by: ENZO Person calling: SHEN Date: 10/09/24Time: 1550 Calcium 10.5(H) 8.4 - 10.2 mg/dL [facility] Bilirubin, Total 0.3 0.0 - 1.0 mg/dL [facility] Aspartate Amino Transferase 20 5 - 31 U/L [facility] Alanine Aminotransferase 18 0 - 31 U/L [facility] Total Protein 7.1 6.5 - 8.0 g/dL [facility] Albumin Level 4.5 3.5 - 5.0 g/dL [facility] Alkaline Phosphatase 98 39 - 117 U/L [facility] 10/09/2024 3:02 PM EST 10/09/2024 3:07 PM EST us Generic External Data Provider LAB BLOOD ORDERAB LES Edited Result - Final [facility] [address] [place] [address] [phone] * XR CERVICAL SPINE 4V (10/09/2024 1:24 PM EST) Anatomical Region Laterality Modality Abdomen Radiographic Chiquita ging 10/09/2024 1:24 PM EST Narrative 11/21/2024 10:46 AM EST ? [facility] ? [address] ?[place] [address] ?XRay Report ? Signed ? Patient: Louis,Joelle I ?MR#: [id number] ?? [id number] ? : 1960 ?Acct:[id number] ? Age/Sex: 64 / F ?ADM Date: 12/03/24 ? Loc: HO.HOSX ? Attending Dr: Jose J LIN ? Ordering Physician: Jose J Andrea ?? Date of Service: 10/09/24 ?? Procedure(s): XR cervical spine 4V ?? Accession Number(s): [id number] ? cc: Jose J Andrea; NEIL BERNARD [...] DD/ 1324 ? TD/TT: 10/09/24 1330 ? Plant Operations Worker: HB ? Procedure Note Opal Turpin - 11/21/2024 [facility] [address] [place] [address] [address] [place] [address] XRay Report Signed Patient: Joelle Myers IMR#: [id number] : 1960cct:[id number] Age/Sex: 64 / FADM Date: 10/09/24 Loc: HO.HOSX Attending Dr: Jose J LIN Ordering Physician: Jose J Andrea Date of Service: 10/09/24 Procedure(s): XR cervical spine 4V Accession Number(s): [id number] cc: Jose J Andrea; NEIL BERNARD NP [...] 11/21/24 1043 DD/ 1324 TD/TT: 10/09/24 1330 Plant Operations Worker: HB [facility] External Provider IMG XR PROCEDURES Final Result * Culture, Urine, Routine (10/09/2024 12:00 AM EST) Urine Urine specimen obtained by clean catch procedure / Unknown 10/09/2024 10/09/2024 Comment:[facility] Narrative [facility] - 10/11/2024 10:52 AM EST Urine Culture Report Result Urine Culture 10,000 to 50,000 cfu/ml Urine Culture Mixed bacterial madhavi characteristic of Urine Culture urogenital contamination. Specimen Source: Urine clean catch Generic External Data Provider LAB MICROBIOLOGY - GENERAL ORDERABLES Final Result [facility] [address] [place] [address] [phone] * BI Mammogram Screening Tomosynthesis Bilateral (06/06/2024 1:12 PM EDT) Anatomical Region Laterality Modality Breast Bilateral Mammography 06/06/2024 1:12 PM EDT Narrative 06/13/2024 11:28 AM EDT ? [facility] ? [address] ?[place] [address] ? Mammography Report ? Signed ? Patient: Louis,Joelle I ?MR#: [id number] ?? [id number] ? : 1960 ?Acct:[id number] ? Age/Sex: 63 / F ?ADM Date: 06/06/24 ? Loc: HO.MAMMO ? 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 Ordering Physician: NEIL BERNARD NP ?Results: 1Negative ? Date of Service: 06/06/24 ?Follow Up: 1 Year From Orig ?? inal Mammogram ? Procedure(s): MM tomosynthesis screening BI ?? Accession Number(s): [id number] ? cc: NEIL BERNARD NP ? EXAMINATION: ?? MM SCREENING DIGITAL BREAST [...] in OV> ? 06/13/24 1124 ? DD/ 1312 ? TD/TT: ? Plant Operations Worker: ? Procedure Note Donotrisainterpreter, Image - 06/13/2024 [facility] [address] [place] [address] Mammography Report Signed Patient: Joelle Myers IMR#: [id number] : 1960cct:[id number] Age/Sex: 63 / FADM Date: 06/06/24 Loc: HO.MAMMO Attending Dr: Neil Bernard NP Ordering Physician: NEIL BERNARDesults: 1Negative Date of Service: 06/06/24Follow Up: 1 Year From Orig inal Mammogram Procedure(s): MM tomosynthesis screening BI Accession Number(s): [id number] cc: NEIL BERNARD NP EXAMINATION: MM SCREENING [...] in OV> 06/13/24 1124 DD/ 1312 TD/TT: Plant Operations Worker: Neil Bernard ANP IMG BI PROCEDURES Final Result * Colonoscopy (04/15/2015) Colonoscopy Normal Normal Historical Provider HEALTH MAINTENANCE Final Result from Last 3 Months or Most Recently Relevant to Health Maintenance Insurance [facility] MEDICAID STAND ADULT Care Teams Cost Accounting Manager Relationship Specialty Start Date End Date Neil Bernard ANP [address] [place] [address] PCP - General Family Medicine 07/07/20 Vaishali Minor PharmD [address] [place] [address] Pharmacist Internal Medicine 10/29/24
--- OUTSIDE RECORDS SUMMARY | 2025-01-01 16:40 | XMS_ITS | Encounter Summary ---
Author Organization [employer] Address [address] [facility] 7t [place] [address] Care Team Providers Care Remote Broadcast Technician Name Role Phone Sepideh Hopkins Primary Care Provider [phone] Vaishali Minor PharmD Unavailable [phone] Reason for Visit * Reason Comments Med Refill Encounter Details Date Type Department Care Team ([facility] st Contact Info) Description 02/27/2024 Refill [facility] MEDICINE [address] [place], [place] [phone] Sepideh Hopkins ANP [address] [place], [place] [phone] Social History Tobacco Use Types Packs/Day Years [...] Description 01/08/2025 11:00 AM EST Medication Management [facility] MEDICINE [address] [place] [phone] Vaishali Minor PharmD [address] [place] [address] 01/17/2025 1:30 PM EDT Office Visit [facility] ADULT DENTAL [address] [place] [address] Everett Angeles, DMD [address] [place] [address] 02/19/2025 1:00 PM EDT Office Visit [facility] MEDICINE [address] [place] [address] Sepideh Hopkins ANP [address] [place] [address] 05/20/2025 1:00 PM EDT Office Visit [facility] ADULT DENTAL [address] [place] [address] Linsey Dawkins documented as of this encounter Visit Diagnoses Not on filedocumented in this encounter Care Teams Remote Broadcast Technician Relationship Specialty Start Date End Date Sepideh Hopkins ANP [address] [place] [address] PCP - General Family Medicine 07/07/20 Vaishali Minor PharmD [address] [place] [address] Pharmacist Internal Medicine 10/29/24 documented as of this encounter
--- OUTSIDE RECORDS SUMMARY | 2025-01-01 16:40 | XMS_ITS | Encounter Summary ---
Author Organization [employer] Address [address] [facility] 7t [place] [address] Care Team Providers Care Family Practice Physician Name Role Phone Sepideh Hopkins JAVI Primary Care Provider [phone] Vaishali Minor PharmD Unavailable [phone] Reason for Visit * Reason Onset Date Comments Appointment 12/08/2022 Patient called i n inquiring about RCT appt with Pasquale. Encounter Details Date Type Department Care Team ([facility] Contact Info) Description 12/08/2022 Telephone [facility] ADULT DENTAL [address] [place], [place] [phone] Gregorio Giordano, DMD [address] [place], [place] [phone] Appointment (Patient called in inquiring about RCT [...] Description 01/08/2025 11:00 AM EST Medication Management [facility] MEDICINE [address] [place] [address] Vaishali Minor, Leonidas [address] [place] [address] 01/17/2025 1:30 PM EDT Office Visit [facility] ADULT DENTAL [address] [place] [address] Everett Angeles, YENI [address] [place] [address] 02/19/2025 1:00 PM EDT Office Visit [facility] MEDICINE [address] [place] [address] Sepideh Hopkins ANP [address] [place] [address] 05/20/2025 1:00 PM EDT Office Visit [facility] ADULT DENTAL [address] [place] [address] Linsey Dawkins documented as of this encounter Visit Diagnoses Not on filedocumented in this encounter Care Teams Family Practice Physician Relationship Specialty Start Date End Date Sepideh Hopkins ANP [address] [place] [phone] PCP - General Family Medicine 07/07/20 Vaishali Minor PharmD [address] [place] [address] Pharmacist Internal Medicine 10/29/24 documented as of this encounter
--- OUTSIDE RECORDS SUMMARY | 2025-01-01 16:40 | XMS_ITS | Encounter Summary ---
Author Organization [employer] Address [address] [facility] 7t [place] [address] Care Team Providers Care Truck Driver Flatbed Name Role Phone Sepideh Hopknis Primary Care Provider [phone] Vaishali Minor PharmD Unavailable [phone] Reason for Visit * Reason Comments Med Refill Encounter Details Date Type Department Care Team ([facility] st Contact Info) Description 06/22/2024 Refill [facility] MEDICINE [address] [place], [place] [phone] Sepideh Hopkins ANP [address] [place], [place] [phone] Social History Tobacco Use Types Packs/Day Years [...] Description 01/08/2025 11:00 AM EST Medication Management [facility] MEDICINE [address] [place] [phone] Vaishali Minor PharmD [address] [place] [address] 01/17/2025 1:30 PM EDT Office Visit [facility] ADULT DENTAL [address] [place] [address] Everett Angeles, DMD [address] [place] [address] 02/19/2025 1:00 PM EDT Office Visit [facility] MEDICINE [address] [place] [address] Sepideh Hopkins ANP [address] [place] [address] 05/20/2025 1:00 PM EDT Office Visit [facility] ADULT DENTAL [address] [place] [address] Linsey Dawkins documented as of this encounter Visit Diagnoses Not on filedocumented in this encounter Care Teams Truck Driver Flatbed Relationship Specialty Start Date End Date Sepideh Hopkins ANP [address] [place] [phone] PCP - General Family Medicine 07/07/20 Vaishali Minor PharmD [address] [place] [address] Pharmacist Internal Medicine 10/29/24 documented as of this encounter
--- OUTSIDE RECORDS SUMMARY | 2025-01-01 16:40 | XMS_ITS | Encounter Summary ---
Author Organization [employer] Address [address] [place] [address] 7t [place] [address] Care Team Providers Care Splicing Machine Operator Name Role Phone Sepideh Hopkins Primary Care Provider [phone] Vaishali Minor PharmD Unavailable Reason for Visit * Reason Comments Med Refill Encounter Details Date Type Department Care Team (Late st Contact Info) Description 06/16/2023 Refill [facility] MEDICINE [address] [place] [address] Tisha Cornelius FNP [address] [place] [address] Dept [place] [address] Social History Tobacco Use Types Packs/Day Years [...] Description 01/08/2025 11:00 AM EST Medication Management [facility] MEDICINE [address] [place] [address] Vaishali Minor, PharmD [address] [place] [address] 01/17/2025 1:30 PM EDT Office Visit [facility] ADULT DENTAL [address] [place], [place] [phone] Everett Angeles, DMD [address] [place] [address] 02/19/2025 1:00 PM EDT Office Visit [facility] MEDICINE [address] [place] [address] Sepideh Hopkins ANP [address] [place] [address] 05/20/2025 1:00 PM EDT Office Visit [facility] ADULT DENTAL [address] [place] [address] Linsey Dawkins documented as of this encounter Visit Diagnoses Not on filedocumented in this encounter Care Teams Splicing Machine Operator Relationship Specialty Start Date End Date Sepideh Hopkins ANP [address] [place] [address] PCP - General Family Medicine 07/07/20 Vaishali Minor PharmD [address] [place] [address] Pharmacist Internal Medicine 10/29/24 documented as of this encounter
[2025-01-07 14:24] VITALS: BMI 28.3
--- NOTE | 2025-01-08 12:14 | HO.ANESPROP2 ---
Documented by User: Funmilayo Beebe NP 01/08/25 12:18 HPI - Anesthesia Eval Consult details Narrative: 64yo F for Upper Endoscopy and Colonoscopy s/p C4-5 Resection of Anterior Osteophytes, 08/02/24 PE: Eliquis CAD s/p stent 2012. Follows [facility] [place] Cardiology. Stable at 12/2024 office visit, carotid US for c/o dizziness WNL GERD: ppi controls DM: FBS ~ 117 Asthma: Spiriva BID, Albuterol TID. Has not required nebulizer since resolution of URI symptoms Anesthesia Pre-Procedure Meds Is the patient on any of the following meds?: GLP1/DPP4 PMFSH Active Problems Active Problems: All Active Problems H/O cervical spine surgery (Acute) History of cervical corpectomy (Acute) S/P cervical spinal fusion (Acute) Gastroparesis (Acute) Abnormal EKG (Acute) CAD (coronary artery disease) (Acute) Stented coronary artery (Acute ~2012) Personal history of PE (pulmonary embolism) (Chronic ~2013) Current use of anticoagulant therapy (Acute ~2013) Hypertension (Acute) Dyslipidemia (Acute) Diabetes type 2, uncontrolled (Acute ~2011) Diabetic polyneuropathy associated with type 2 diabetes mellitus (Acute) 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) Personal history of nicotine dependence (Acute) GERD (gastroesophageal reflux disease) (Acute) Constipation (Acute) Osteophyte of cervical spine (Acute) Elevated LFTs (Acute) Past Medical History Medical History Asthma Depression Anxiety Dizziness Headache Hx pulmonary embolism (~2016) Personal history of nicotine dependence History of colon polyps Osteophyte of cervical spine Stented coronary artery (~2012) Elevated LFTs CAD (coronary artery disease) Dyslipidemia Hypertension Diabetic polyneuropathy associated with type 2 diabetes mellitus 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 Mother Hx of colon cancer, stage I Hx of diabetes insipidus Family history of problems with anesthesia: No Surgical History Surgical History History of colonoscopy History of esophagogastroduodenoscopy (EGD) History of heart artery stent History of Problems with Anesthesia: No Social History Social History Household Members: None Housing: Apartment Are you a primary farm or ranch animal caretaker to a significant other at home: No Do you presently have visiting nurse or other home services: No Alcohol intake: never Patient Tobacco Use Status: Former Tobacco user Tobacco use type: Cigarette Years Smoked: (onset 19yo, 1ppd x 42yrs, 40pyh - quit 2021) Meds Allergies Allergy/AdvReac Type Severity Reaction Status Date / Time No Known Allergies Allergy Verified 10/09/24 14:18 Home Medications ?Medication ?Instructions ?Recorded ?Confirmed ?Last Taken ?Type albuterol sulfate 90 mcg/actuation 2 puff inhalation Q4-6H PRN 08/26/20 12/12/24 Unknown History aerosol inhaler (ProAir HFA) Shortness Of Breath Or Wheezing aspirin 81 mg tablet 81 mg PO DAILY 08/26/20 12/12/24 01/08/25 History blood-glucose meter (FreeStyle 08/26/20 12/12/24 Unknown History Lite Meter kit) budesonide-formoterol HFA 160 2 puff inhalation BID 08/26/20 12/12/24 Unknown History mcg-4.5 mcg/actuation aerosol inhaler furosemide 20 mg tablet 20 mg PO DAILY PRN Edema 08/26/20 12/12/24 Unknown History sertraline 100 mg tablet (Zoloft) 200 mg PO BEDTIME 08/26/20 12/12/24 Unknown History apixaban 2.5 mg tablet (Eliquis) 2.5 mg PO 01/13/22 12/12/24 01/05/25 History acarbose 100 mg tablet 100 mg PO TID 06/08/23 12/12/24 Unknown History cholecalciferol (vitamin D3) 50 50 mcg PO QAM 03/09/24 12/12/24 Unknown History mcg (2,000 unit) tablet atorvastatin 40 mg tablet 40 mg PO BEDTIME 05/09/24 12/12/24 Unknown History bupropion HCl 100 mg tablet,12 hr 100 mg PO QAM 05/09/24 12/12/24 Unknown History sustained-release cetirizine 10 mg tablet 10 mg PO QAM 05/09/24 12/12/24 Unknown History lorazepam 0.5 mg tablet 0.5 mg PO BID PRN Anxiety 05/09/24 12/12/24 Unknown History sennosides 8.6 mg-docusate sodium 2 tab PO DAILY PRN constipation 05/09/24 12/12/24 Unknown History 50 mg tablet (Stimulant Laxative Plus) tiotropium bromide 18 mcg capsule 1 cap inhalation DAILY 05/09/24 12/12/24 Unknown History with inhalation device (Spiriva with HandiHaler) zolpidem 10 mg tablet 10 mg PO BEDTIME PRN Insomnia 05/09/24 12/12/24 Unknown History gabapentin 300 mg capsule 600 mg PO TID 07/04/24 12/12/24 Unknown History semaglutide 0.25 mg or 0.5 mg (2 0.25 mg subcut .QTUESDAY 07/04/24 12/12/24 12/26/24 History mg/3 mL) subcutaneous pen injector (Ozempic) acetaminophen 500 mg tablet 1,000 mg PO Q6H PRN Pain 07/18/24 12/12/24 Unknown History albuterol sulfate 2.5 mg/3 mL 1 inhalation Q6H PRN wheezing 07/18/24 12/12/24 Unknown History (0.083 %) solution for nebulization fluticasone propionate 50 1 spray intranasal BID 07/18/24 12/12/24 Unknown History mcg/actuation nasal spray,suspension metformin 500 mg tablet,extended 500 mg PO BID 07/18/24 12/12/24 Unknown History release 24 hr metoprolol succinate 25 mg 25 mg PO BID 07/18/24 12/12/24 Unknown History tablet,extended release 24 hr (Toprol XL) nitroglycerin 0.4 mg sublingual 0.4 mg sublingual Q5M PRN Chest 07/18/24 12/12/24 Unknown History tablet Pain lidocaine 5 % topical patch patch topical 09/12/24 12/12/24 Unknown History fenofibrate micronized 134 mg 134 mg PO DAILY 12/12/24 12/12/24 Unknown History capsule Exam Height,Weight and Vital Signs: Height 5 ft 1 in Weight 68.039 kg Pertinent Lab Results Pertinent Lab Results: Laboratory Tests 10/09/24 10/12/24 15:02 09:52 WBC 7.3 Hgb 13.0 Hct 37.5 Plt Count 277 Sodium 137 Potassium 4.2 Chloride 102 Carbon Dioxide 27 BUN 19 H Creatinine 1.33 Narrative Narrative: Carotid US 12/2024 IMPRESSION: No significant stenosis (0-49% stenosis). EKG 06/2024 Vent. Rate : 061 BPM Atrial Rate : 061 BPM P-R Int : 136 ms QRS Dur : 088 ms QT Int : 356 ms P-R-T Axes : 048 021 073 degrees QTc Int : 358 ms Artifact in tracing Normal sinus rhythm ST & T wave abnormality, consider anterior ischemia Abnormal ECG When compared with ECG of 28-DEC-2023 08:47, QT has shortened Assessment and Plan Assessment Anesthesia Assessment: Chart Reviewed Final Anesthetic Review Family History of Problems with Anesthesia: No History of Problems with Anesthesia: No Documented by User: Korina Garcia MD 01/09/25 10:44 HPI - Anesthesia Eval Consult details Narrative: 64yo F for Upper Endoscopy and Colonoscopy s/p C4-5 Resection of Anterior Osteophytes, 08/02/24 PE: Eliquis. Last dose 01/05/25 CAD s/p stent 2012. Follows [facility] [place] Cardiology. Stable at 12/2024 office visit, carotid US for c/o dizziness WNL GERD: ppi controls DM: FBS ~ 117 Asthma: Spiriva BID, Albuterol TID. Has not required nebulizer since resolution of URI symptoms Last dose of aspirin 01/08/25 Anesthesia Pre-Procedure Meds Is the patient on any of the following meds?: GLP1/DPP4 (Last dose of semaglutide 2 weeks ago) PMFSH Active Problems Active Problems: All Active Problems H/O cervical spine surgery (Acute) History of cervical corpectomy (Acute) S/P cervical spinal fusion (Acute) Gastroparesis (Acute) Abnormal EKG (Acute) CAD (coronary artery disease) (Acute) Stented coronary artery (Acute ~2012) Personal history of PE (pulmonary embolism) (Chronic ~2013) Current use of anticoagulant therapy (Acute ~2013) Hypertension (Acute) Dyslipidemia (Acute) Diabetes type 2, uncontrolled (Acute ~2011) Diabetic polyneuropathy associated with type 2 diabetes mellitus (Acute) 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) use of insulin (Acute) Personal history of nicotine dependence (Acute) GERD (gastroesophageal reflux disease) (Acute) Constipation (Acute) Osteophyte of cervical spine (Acute) Elevated LFTs (Acute) Past Medical History Medical History Asthma Depression Anxiety Dizziness Headache Hx pulmonary embolism (~2016) Personal history of nicotine dependence History of colon polyps Osteophyte of cervical spine Stented coronary artery (~2012) Elevated LFTs CAD (coronary artery disease) Dyslipidemia Hypertension Diabetic polyneuropathy associated with type 2 diabetes mellitus 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) 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 Mother Hx of colon cancer, stage I Hx of diabetes insipidus Family history of problems with anesthesia: No Surgical History Surgical History History of colonoscopy History of esophagogastroduodenoscopy (EGD) History of heart artery stent History of Problems with Anesthesia: No Social History Social History Household Members: None Housing: Apartment Are you a primary farm or ranch animal caretaker to a significant other at home: No Do you presently have visiting nurse or other home services: No Alcohol intake: never Patient Tobacco Use Status: Former Tobacco user Tobacco use type: Cigarette Years Smoked: (onset 19yo, 1ppd x 42yrs, 40pyh - quit 2021) Meds Allergies Allergy/AdvReac Type Severity Reaction Status Date / Time No Known Allergies Allergy Verified 10/09/24 14:18 Home Medications ?Medication ?Instructions ?Recorded ?Confirmed ?Last Taken ?Type albuterol sulfate 90 mcg/actuation 2 puff inhalation Q4-6H PRN 08/26/20 12/12/24 Unknown History aerosol inhaler (ProAir HFA) Shortness Of Breath Or Wheezing aspirin 81 mg tablet 81 mg PO DAILY 08/26/20 12/12/24 01/08/25 History blood-glucose meter (FreeStyle 08/26/20 12/12/24 Unknown History Lite Meter kit) budesonide-formoterol HFA 160 2 puff inhalation BID 08/26/20 12/12/24 Unknown History mcg-4.5 mcg/actuation aerosol inhaler furosemide 20 mg tablet 20 mg PO DAILY PRN Edema 08/26/20 12/12/24 Unknown History sertraline 100 mg tablet (Zoloft) 200 mg PO BEDTIME 08/26/20 12/12/24 Unknown History apixaban 2.5 mg tablet (Eliquis) 2.5 mg PO 01/13/22 12/12/24 01/05/25 History acarbose 100 mg tablet 100 mg PO TID 06/08/23 12/12/24 Unknown History cholecalciferol (vitamin D3) 50 50 mcg PO QAM 03/09/24 12/12/24 Unknown History mcg (2,000 unit) tablet atorvastatin 40 mg tablet 40 mg PO BEDTIME 05/09/24 12/12/24 Unknown History bupropion HCl 100 mg tablet,12 hr 100 mg PO QAM 05/09/24 12/12/24 Unknown History sustained-release cetirizine 10 mg tablet 10 mg PO QAM 05/09/24 12/12/24 Unknown History lorazepam 0.5 mg tablet 0.5 mg PO BID PRN Anxiety 05/09/24 12/12/24 Unknown History sennosides 8.6 mg-docusate sodium 2 tab PO DAILY PRN constipation 05/09/24 12/12/24 Unknown History 50 mg tablet (Stimulant Laxative Plus) tiotropium bromide 18 mcg capsule 1 cap inhalation DAILY 05/09/24 12/12/24 Unknown History with inhalation device (Spiriva with HandiHaler) zolpidem 10 mg tablet 10 mg PO BEDTIME PRN Insomnia 05/09/24 12/12/24 Unknown History gabapentin 300 mg capsule 600 mg PO TID 07/04/24 12/12/24 Unknown History semaglutide 0.25 mg or 0.5 mg (2 0.25 mg subcut .QTUESDAY 07/04/24 12/12/24 12/26/24 History mg/3 mL) subcutaneous pen injector (Ozempic) acetaminophen 500 mg tablet 1,000 mg PO Q6H PRN Pain 07/18/24 12/12/24 Unknown History albuterol sulfate 2.5 mg/3 mL 1 inhalation Q6H PRN wheezing 07/18/24 12/12/24 Unknown History (0.083 %) solution for nebulization fluticasone propionate 50 1 spray intranasal BID 07/18/24 12/12/24 Unknown History mcg/actuation nasal spray,suspension metformin 500 mg tablet,extended 500 mg PO BID 07/18/24 12/12/24 Unknown History release 24 hr metoprolol succinate 25 mg 25 mg PO BID 07/18/24 12/12/24 Unknown History tablet,extended release 24 hr (Toprol XL) nitroglycerin 0.4 mg sublingual 0.4 mg sublingual Q5M PRN Chest 07/18/24 12/12/24 Unknown History tablet Pain lidocaine 5 % topical patch patch topical 09/12/24 12/12/24 Unknown History fenofibrate micronized 134 mg 134 mg PO DAILY 12/12/24 12/12/24 Unknown History capsule Exam Height,Weight and Vital Signs: Height 5 ft 1 in Weight 68.039 kg Vital Signs Temp Pulse Resp BP Pulse Ox O2 Del Method 01/09/25 09:14 97.1 F 73 18 139/74 99 Room Air Pertinent Lab Results Pertinent Lab Results: Lab Results 01/09/25 Range/Units 09:31 POC Glucose 120 H (60-115) mg/dL Laboratory Tests 10/09/24 10/12/24 15:02 09:52 WBC 7.3 Hgb 13.0 Hct 37.5 Plt Count 277 Sodium 137 Potassium 4.2 Chloride 102 Carbon Dioxide 27 BUN 19 H Creatinine 1.33 Airway Mallampati Class: II TM Dist: >3cm Neck ROM: Full Loose/Missing/Broken Teeth: Yes (No teeth top. Only a few teeth in front bottom. Chipped.Denies loose teeth) Heart: RRR Lungs: CTAB Assessment and Plan Assessment Anesthesia Assessment: Anesthesia Plan Discussed and Chart Reviewed Final Anesthetic Review Family History of Problems with Anesthesia: No History of Problems with Anesthesia: No NPO: Yes ASA Class: III Final Preanesthetic Review: No Changes in Pt Med Stat, Meds/Allgs Chart Reviewed, Consent Obtained/Reviewed and Anes Risks/Benef Reviewed Patient Risk: Intermediate Procedure Risk: Low Assessment/Block/Sedation in SS: Assess/Block/Sedation-SS Anesthetic Plan Anesthetic Plan: TIVA Disposition: Standard PACU
[2025-01-09 09:03] VITALS: BMI 27.7
[2025-01-09 09:14] VITALS: BP 139/74; PULSE 73; RESP 18; TEMP 36.2; O2SAT 99
[2025-01-09] MEDS: Lactated Ringers 1,000 ML 100 ML IVCONT (09:29)
[2025-01-09 09:40] LABS: Glucose, Whole Blood 120 mg/dL (60-115)
--- NOTE | 2025-01-09 09:57 | MHC.SHP ---
Pre-Procedural Eval Section A - 24 Hr Update-Section A only Date of Service: 01/09/25 Section B - Complete if H&P > 30 days Chief Complaint: gerd,screening Details of Present Illness: mum -crc Relevant Family History (Specify if Yes): Yes Relevant Social History: None Present Medications: see Short Stay Collaborative assessment Medical History: Significant History (Asthma Depression Anxiety Dizziness Headache Hx pulmonary embolism (~2016) Personal history of nicotine dependence History of colon polyps Osteophyte of cervical spine Stented coronary artery (~2012) Elevated LFTs CAD (coronary artery disease) Dyslipidemia Hypertension Diabetic polyneuropathy associ) History of Previous Operations: Relevant previous surgery/procedure and date(s) (History of colonoscopy History of esophagogastroduodenoscopy (EGD) History of heart artery stent) Allergies: Allergies Allergy/AdvReac Type Severity Reaction Status Date / Time No Known Allergies Allergy Verified 10/09/24 14:18 Review of Systems Sugical H&P ROS: Negative: Constitution, Cardiovascular, Respiratory, Neurological, Psychiatric, Hem-Onc, Allergic/Immunologic, Gastrointestinal, Genitourinary, Musculoskeletal, Integumentary, Endocrine and Eyes/Ears/Nose/Throat Exam Surgical H&P Exam: Normal: HEENT, Normal: Heart, Normal: Lungs, Normal: Extremities, Normal: Abdomen, Normal: Skin and Normal: Neurological Plan Diagnosis/Plan: Unchanged I have reviewed the history and physical and performed a pertinent physical examination on my patient. No changes have occurred unless specified. Time Spent With Patient Time: Total time managing care of this patient today ____ minutes.
--- NOTE | 2025-01-09 10:35 | HO.OPN-COLON ---
Colonoscopy Operative Note Operative Note Date of Service: 01/09/25 Narrative: Operative Information Procedure Description: EGD, Colonoscopy Indication: dysphagia, screening Anesthesia: MAC FLEXIBLE TRANSORAL UPPER GASTROINTESTINAL ENDOSCOPY AND COLONOSCOPY PROCEDURE NOTE UPPER ENDOSCOPY Consent: Indications for the procedure and potential complications of bleeding, perforation, reaction to medications and missed diagnosis were discussed with the patient and informed consent was obtained. Instrument: Olympus GIF H 190 J mid size upper endoscope Monitoring: Vital signs and clinical assessment, continuous EKG monitoring, Pulse oximetry, Carbon Dioxide monitoring and blood pressure monitoring were done throughout the procedure. Procedure: The patient was placed in the left lateral decubitis position and pre-procedure medications were administered and a bite block was placed. The endoscope was inserted into the mouth and advanced under direct vision to the third part of duodenum. A careful inspection was made as the upper endoscope was withdrawn including a retroflexed examination of the proximal stomach; Findings and interventions are described below. Findings: Larynx:normal Esophagus: GE junction at 38 cm, diaphragm hiatus at 38 cm, bx taken from distal esophagus, balloon dilation done to 19 mm at LES and UES -no tears seen Stomach: Coarse granular mucosa. Biopsies were obtained. Grade 2 flap valve on retroflexed examination of the cardia. Duodenum: Normal bulb and descending duodenum, Intervention: Biopsies as noted above, balloon dilation COLONOSCOPY Instrument: Olympus variable stiffness pediatric scope 190L Colonoscopy Monitoring: Vital signs and clinical assessment, continuous EKG monitoring, Pulse oximetry, Carbon Dioxide monitoring and blood pressure monitoring were done throughout the procedure. Colon withdrawal time was 17 minutes. Procedure: The patient was placed in the left lateral decubitis position and pre-procedure medications were administered. After a digital rectal examination of the ano-rectum, the video colonoscope was inserted into the rectum and advanced through the colon to the cecum/TI. The colonoscope was slowly withdrawn in a retrograde panoramic fashion and the colon mucosa was carefully examined including a retroflexed view of the rectum. Findings and interventions are described below. Procedure Difficulty:moderate Findings: Terminal Ileum-normal Cecum:normal Ascending Colon: normal Transverse Colon -normal Descending Colon:normal Sigmoid Colon: mild diverticulosis, 8-9 mm sessile polyp removed with cold snare Rectum: Retroflexion with small internal hemorrhoids, grade I, 9 mm sessile removed with cold snare, 5-6 mm sessile polyp removed with cold forceps Anorectum - normal Colon preparation: [place] Bowel Preparation Scale Right colon; 1-2 Transverse colon: 1-2 Left colon; 1-2 (0 = Unprepared colon segment with mucosa not seen due to solid stool that cannot be cleared. 1 = Portion of mucosa of the colon segment seen, but other areas of the colon segment not well seen due to staining, residual stool and/or opaque liquid. 2 = Minor amount of residual staining, small fragments of stool and/or opaque liquid, but mucosa of colon segment seen well. 3 = Entire mucosa of colon segment seen well with no residual staining, small fragments of stool or opaque liquid) Impression and Post Procedure Diagnosis: Endoscopy Findings: gastritis Colonoscopy Findings: diverticulosis colon polyps internal hemorrhoids Plan: Await Pathology results Repeat Colonoscopy in 1 year due to fair prep or earlier if clinically indicated High fiber diet leaflet avoid straining at stool, epsom salts and sitz bath, anusol supps or cream Above findings were reviewed with the patient and relevant handouts were provided if indicated.
[2025-01-09 10:40] VITALS: BP 95/64; PULSE 95; RESP 22; TEMP 36.9; O2SAT 99
[2025-01-09 10:57] VITALS: BP 128/85; PULSE 81; RESP 18; TEMP 36.3; O2SAT 100
== END 2025-01-09 11:52 | disposition home or self-care (01) ==
PROVIDERS: PCP Nurse Practitioner Primary Care; Visit Provider Internal Medicine Gastroenterology
PROC: (CPT 45385; principal; 2025-01-09 10:10)
DX: Z12.11 Encounter for screening for malignant neoplasm of colon (principal); D12.5 Benign neoplasm of sigmoid colon; K62.1 Rectal polyp; K57.30 Diverticulosis of large intestine without perforation or abscess without bleeding; K64.0 First degree hemorrhoids; Z86.0101 Personal history of adenomatous and serrated colon polyps; K29.60 Other gastritis without bleeding; K21.9 Gastro-esophageal reflux disease without esophagitis; K31.84 Gastroparesis; R13.10 Dysphagia, unspecified; E11.9 Type 2 diabetes mellitus without complications; I10 Essential (primary) hypertension; E78.5 Hyperlipidemia, unspecified; J45.909 Unspecified asthma, uncomplicated; Z86.711 Personal history of pulmonary embolism; Z87.891 Personal history of nicotine dependence; Z79.4 Long term (current) use of insulin; Z79.01 Long term (current) use of anticoagulants
CPT/HCPCS: 45385; 45380; 43249; 43239; 82947; 88305; 88313; 88342; C1726; J1596; J2003; J2704

== ENCOUNTER → 2025-01-09 07:58 | Outpatient (BNV) | payer MEDICAID, SELFPAY | PROVIDERS: PCP Nurse Practitioner Primary Care; Visit Provider Internal Medicine Gastroenterology | DX: Z12.11 Encounter for screening for malignant neoplasm of colon (principal); D12.5 Benign neoplasm of sigmoid colon; K62.1 Rectal polyp; K57.30 Diverticulosis of large intestine without perforation or abscess without bleeding; K64.0 First degree hemorrhoids; R13.10 Dysphagia, unspecified; K29.70 Gastritis, unspecified, without bleeding | CPT/HCPCS: 43239; 43249; 45380; 45385 ==

== ENCOUNTER 2025-02-08 11:05 | Outpatient (AMB) | payer MEDICAID, SELFPAY ==
[2025-02-08 11:15] VITALS: BP 116/76; PULSE 86; O2SAT 97; BMI 28.3
--- NOTE | 2025-02-08 11:15 | MHC.OFFVIS ---
Vital Signs 02/08/25 11:15 Height 5 ft 1 in Weight 149 lb 14.629 oz BMI 28.3 BP 116/76 Blood Pressure Location Rt brachial Position Sitting Pulse 86 Pulse Source Pulse Oximeter Pulse Oximetry (%) 97 Oxygen Delivery Method Room Air Intake Visit Reasons: 3 mo f/u r/s 12/12/24 Intake Note: ESTABLISHED PATIENT for s/p duo w/ Jennings. Mgmt of GERD. Chief Complaint; Pt denies any GI concerns at this time. Reports reflux is well controlled. Pt does have PCP appt 02/19 to discuss headache and back pain, however, no sx GI related she reports. Stock Worker And Deliverer Required: Yes Stock Worker And Deliverer Services: Stock Worker And Deliverer Present Stock Worker And Deliverer Name: Aubrey [id number] Information Interpreted: clinical only Accompanied by: Self / Same As Patient Allergies No Known Allergies Allergy (Verified 02/08/25 11:15) HPI HPI 3 mo f/u r/s 12/12/24: Details: LAST VISIT Gastroparesis GERD (gastroesophageal reflux disease) Constipation Elevated LFTs Plan Continue Linzess as ordered. We will book upper endoscopy and colonoscopy. We may do GES to rule out true gastroparesis to avoid patient taking Reglan. She is on so many different medications we did talk to about polypharmacy. We talked about trying to control her blood sugars with food. Message sent to surgical schedulers to book the procedure for her. Patient reports that she did had a quite successful neurosurgery end of July. Her trouble of swallowing has improved, however she still occasionally will have trouble swallowing. Continue Nexium in the morning and famotidine at bedtime. Patient was encouraged to avoid dietary triggers and late night snacking. Staying upright for minimum 3 hours after meals discussed with patient. Patient will follow-up in 3 months, sooner on as needed basis. She is agreeable to this plan and verbalizes understanding of instructions. She was given the opportunity to ask questions and all questions answered. ? Thank you for allowing me to participate in her care Orders Orders CT head/brain wo/w IV con 09/03/24 R51.9, R42 Medications New polyethylene glycol 3350 (Miralax) As directed by gastroenterology department at [facility] 238 grams PO ONCE 238 grams 0RF Z12.11 bisacodyl (Dulcolax (bisacodyl)) take 4 tabs at noon the day before your colonoscopy 20 mg (4 x 5 mg) PO ONCE 4 tabs 0RF 1 day Z12.11 UPPER ENDOSCOPY AND COLONOSCOPY Findings: Larynx:normal Esophagus: GE junction at 38 cm, diaphragm hiatus at 38 cm, bx taken from distal esophagus, balloon dilation done to 19 mm at LES and UES -no tears seen Stomach: Coarse granular mucosa. Biopsies were obtained. Grade 2 flap valve on retroflexed examination of the cardia. Duodenum: Normal bulb and descending duodenum, Intervention: Biopsies as noted above, balloon dilation COLONOSCOPY Instrument: Olympus variable stiffness pediatric scope 190L Colonoscopy Monitoring: Vital signs and clinical assessment, continuous EKG monitoring, Pulse oximetry, Carbon Dioxide monitoring and blood pressure monitoring were done throughout the procedure. Colon withdrawal time was 17 minutes. Procedure: The patient was placed in the left lateral decubitis position and pre-procedure medications were administered. After a digital rectal examination of the ano-rectum, the video colonoscope was inserted into the rectum and advanced through the colon to the cecum/TI. The colonoscope was slowly withdrawn in a retrograde panoramic fashion and the colon mucosa was carefully examined including a retroflexed view of the rectum. Findings and interventions are described below. Procedure Difficulty:moderate Findings: Terminal Ileum-normal Cecum:normal Ascending Colon: normal Transverse Colon -normal Descending Colon:normal Sigmoid Colon: mild diverticulosis, 8-9 mm sessile polyp removed with cold snare Rectum: Retroflexion with small internal hemorrhoids, grade I, 9 mm sessile removed with cold snare, 5-6 mm sessile polyp removed with cold forceps Anorectum - normal Colon preparation: [place] Bowel Preparation Scale Right colon; 1-2 Transverse colon: 1-2 Left colon; 1-2 (0 = Unprepared colon segment with mucosa not seen due to solid stool that cannot be cleared. 1 = Portion of mucosa of the colon segment seen, but other areas of the colon segment not well seen due to staining, residual stool and/or opaque liquid. 2 = Minor amount of residual staining, small fragments of stool and/or opaque liquid, but mucosa of colon segment seen well. 3 = Entire mucosa of colon segment seen well with no residual staining, small fragments of stool or opaque liquid) Impression and Post Procedure Diagnosis: Endoscopy Findings: gastritis Colonoscopy Findings: diverticulosis colon polyps internal hemorrhoids Plan: Await Pathology results Repeat Colonoscopy in 1 year due to fair prep or earlier if clinically indicated High fiber diet leaflet avoid straining at stool, epsom salts and sitz bath, anusol supps or cream PATHOLOGY RESULTS Diagnosis A. Stomach, biopsy: Oxyntic mucosa within normal limits; no Helicobacter organisms seen. B. Esophagus, distal, biopsy: - Cardiofundic-type mucosa within normal limits; no intestinal metaplasia seen. - Squamous epithelium within normal limits. C. Colon, sigmoid, polypectomy: Tubular adenoma; negative for high-grade dysplasia or carcinoma. D. Rectum, polypectomies: Hyperplastic mucosal polyps. TODAY'S VISIT Patient is here today for follow-up and to discuss upper endoscopy and colonoscopy results. Patient reports that for the most part she has been feeling well. Denies dyspepsia, dysphagia or odynophagia. Currently she is taking Nexium in the morning and famotidine at bedtime. Patient reports that her symptoms for the most part are suppressed. However depends on what she eats she might have acid reflux. Patient denies melena, hematochezia. One tubular adenoma found without high-grade dysplasia or carcinoma and 1 hyperplastic polyp. Patient had suboptimal prep and will need to repeat colonoscopy in 1 year. Patient reports that she is moving her bowels, however admits that her bowel does not feel empty she feels bloated many times. Patient denies any mucus in her stool. Patient reports back pain and sinus headache. Patient will call PCP [facility] Medical History Asthma Depression Anxiety Dizziness Headache Hx pulmonary embolism (~2016) Personal history of nicotine dependence History of colon polyps Osteophyte of cervical spine Stented coronary artery (~2012) Elevated LFTs CAD (coronary artery disease) Dyslipidemia Hypertension Diabetic polyneuropathy associated with type 2 diabetes mellitus longterm (current) use of insulin Diabetes type 2, uncontrolled (~2011) GERD (gastroesophageal reflux disease) Constipation Personal history of PE (pulmonary embolism) (~2013) Current use of anticoagulant therapy (~2013) Surgical History History of colonoscopy History of esophagogastroduodenoscopy (EGD) History of heart artery stent Family History Father No problems noted. Mother Hx of colon cancer, stage I Hx of diabetes insipidus Social History Household Members: None Housing: Apartment Are you a primary career specialist to a significant other at home: No Do you presently have visiting nurse or other home services: No 75 years or older and lives alone: No Alcohol intake: never Patient Tobacco Use Status: Former Tobacco user Tobacco use type: Cigarette Years Smoked: (onset 19yo, 1ppd x 42yrs, 40pyh - quit 2021) Review of Systems Const Denies weight gain and Denies weight loss ENT Reports no additional complaints, Denies dysphagia and Denies odynophagia Card Reports no additional complaints Resp Reports no additional complaints GI Reports abdominal pain (Upper), Denies belching, Denies melena, Reports bloating, Denies change in bowel habits, Reports constipation, Denies dysphagia, Denies excessive flatus, Denies dyspepsia, Reports heartburn (Occasional), Denies diarrhea, Denies loose stools, Denies nausea, Denies odynophagia and Denies vomiting Reports no additional complaints Musc Reports no additional complaints Neuro Reports no additional complaints Psych Reports no additional complaints Endo Reports no additional complaints Physical Exam Vital Signs: Last Vital Signs Pulse 86 02/08/25 11:15 BP 116/76 02/08/25 11:15 Pulse Ox 97 02/08/25 11:15 Oxygen Delivery Method Room Air 02/08/25 11:15 BMI result Body Mass Index 28.3 Const General: healthy appearing, no acute distress and well developed Nutritional Appearance: obese Orientation/consciousness: patient oriented x3 Resp Effort & Inspection: normal respiratory effort, able to speak in complete sentences, no tracheal deviation and symmetric chest movement Auscultation: clear to auscultation bilaterally Cardio Rate: regular rate GI Inspection: Yes normal to inspection, No distended and Yes obesity Palpation (GI): Soft to palpation, not firm, nontender and No hepatosplenomegaly present Auscultation: normal bowel sounds General: Yes no CVA tenderness Back/Spine/Pelvis Back: no CVA tenderness Skin General skin exam: elasticity normal, turgor normal and dry skin Neuro General: patient oriented x3 Psych Appearance: grossly normal Mental Status: mental status grossly normal Assessment & Plan Assessment & Plan (1) Gastroparesis: Code(s): K31.84 - Gastroparesis Category: Medical (2) GERD (gastroesophageal reflux disease): Code(s): K21.9 - Gastro-esophageal reflux disease without esophagitis Category: Medical Qualifiers: Esophagitis presence: esophagitis presence not specified Qualified Code(s): K21.9 - Gastro-esophageal reflux disease without esophagitis (3) Constipation: Code(s): K59.00 - Constipation, unspecified Category: Medical Qualifiers: Constipation type: chronic idiopathic constipation Qualified Code(s): K59.04 - Chronic idiopathic constipation (4) Elevated LFTs: Code(s): R79.89 - Other specified abnormal findings of blood chemistry Category: Medical (5) Abdominal pain: Code(s): R10.9 - Unspecified abdominal pain Qualifiers: Abdominal location: upper abdomen, unspecified Qualified Code(s): R10.10 - Upper abdominal pain, unspecified (6) Postprandial abdominal bloating: Code(s): R14.0 - Abdominal distension (gaseous) Plan Continue Nexium in the morning and famotidine at bedtime. Avoid dietary triggers and late night snacking. Staying upright for minimum 3 hours after meals discussed with patient.. Colonoscopy will be repeated in 1 year due to suboptimal prep. One tubular adenoma seen in sigmoid colon and 1 hyperplastic polyp in the rectum. Patient is not emptying her bowels, constipation on going. Patient will start taking Senokot 2 tablets daily. Increase fluid intake and activity to promote better bowel motility. Patient will follow-up in 3-4 months, sooner on as needed basis. She is agreeable to this plan and verbalizes understanding of instructions. She was given the opportunity to ask questions and all questions answered. Thank you for allowing me to participate in her care Orders: Orders US abdomen complete Today R10.9 - Unspecified abdominal pain Medications: New sennosides (Natural Senna Laxative) 17.2 mg (2 x 8.6 mg) PO BEDTIME 180 tabs 3RF constipation K59.00 - Constipation, unspecified Coding Level of Care Code Est Pt Level 4 (14208) Complex EM visit Add On G2211 Diagnoses Gastroparesis K31.84 Gastroesophageal reflux disease, unspecified whether esophagitis present K21.9 Esophagitis presence: esophagitis presence not specified Chronic idiopathic constipation K59.04 Constipation type: chronic idiopathic constipation Elevated LFTs R79.89 Pain of upper abdomen R10.10 Abdominal location: upper abdomen, unspecified Postprandial abdominal bloating R14.0 Time Spent (min) 35 Comment 25 minutes spent with patient and additional 10 minutes spent reviewing her records
--- OUTSIDE RECORDS SUMMARY | 2025-02-08 12:54 | XMS_ITS | Clinical Summary ---
Author Organization [facility] Facility Address [address] [place] [id number] Care Team Providers Care Trail Construction Worker Name Role Phone Karlos Adame [facility] Primary Care Provider Family History Medical History [...] Name Priority Date/Time Associated Diagnosis Comments LAB RESORT KEEPER Routine 10/19/2017 12:00 AM EST from Last 3 Months or Most Recently Relevant to Health Maintenance Results * Lab Industrial Psychology Teacher (10/19/2017 12:00 AM EST) Hemoglobin A1C 5.9 % [facility] 10/19/2017 us Kca Conversion LAB [id number] LICITED RESULTS Final Result [facility] from Last 3 Months or Most Recently Relevant to Health Maintenance Insurance MEDICAID [place] Care Teams Trail Construction Worker Relationship Specialty Start Date End Date Karlos Adame FNP [address] [place] [address], [address] [place] [address] PCP - General 11/17/20
== END 2025-02-08 11:46 | disposition home or self-care (01) ==
LOC: HO.HGI 11:06
PROVIDERS: PCP Nurse Practitioner Primary Care; Visit Provider Nurse Practitioner Family
DX: K31.84 Gastroparesis (principal); K21.9 Gastro-esophageal reflux disease without esophagitis; K59.04 Chronic idiopathic constipation; R79.89 Other specified abnormal findings of blood chemistry; R10.10 Upper abdominal pain, unspecified; R14.0 Abdominal distension (gaseous)
CPT/HCPCS: 99214

== ENCOUNTER → 2025-02-08 11:05 | Outpatient (BNVA) | payer MEDICAID, SELFPAY | PROVIDERS: PCP Nurse Practitioner Primary Care; Visit Provider Nurse Practitioner Family | DX: K21.9 Gastro-esophageal reflux disease without esophagitis (principal); K31.84 Gastroparesis; K59.04 Chronic idiopathic constipation; R10.10 Upper abdominal pain, unspecified; R14.0 Abdominal distension (gaseous); R79.89 Other specified abnormal findings of blood chemistry | CPT/HCPCS: 99212 ==

== ENCOUNTER 2025-02-19 13:43 | Outpatient (REF) | payer MEDICAID, SELFPAY ==
[2025-02-19 16:36] LABS: Anion Gap 11 (12-20); Blood Urea Nitrogen 22 mg/dL (9-16); Calcium 10.1 mg/dL (8.4-10.2); Carbon Dioxide 24 mmol/L (22-29); Chloride 109 mmol/L (96-108); Estimated Glomerular Filt Rate 47; Glucose Random 115 mg/dL (60-115); Potassium 4.2 mmol/L (3.3-5.1); Sodium 140 mmol/L (135-145)
--- OUTSIDE RECORDS SUMMARY | 2025-02-19 16:51 | XMS_ITS | Encounter Summary ---
Author Organization [employer] Address [address] [facility] 7[address] [place] [address] Care Team Providers Care Seismograph Chief Name Role Phone Sepideh Hopkins JAVI Primary Care Provider [phone] Vaishali Minor PharmD Unavailable [phone] Encounter Details Date Type Department Care Team (Late st Contact Info) Description 10/04/2022 Abstract [facility] [address] [place] [address] Dental, Provider, DDS Social History Tobacco Use [...] Care Team (Late st Contact Info) Description 02/20/2025 10:00 AM EDT Office Visit [facility] [address] [place] [address] Everett Angeles, YENI [address] [place] [address] 03/05/2025 3:30 PM EDT Office Visit [facility] [address] [place] [address] Juarez Damon DDS [address] [place] [address] 03/12/2025 11:00 AM EDT Medication Management [facility] [address] [place] [phone] Vaishali Minor PharmD [address] [place] [address] 03/15/2025 10:30 AM EDT Office Visit [facility] [address] [place] [address] Everett Angeles, YENI [address] [place] [address] 05/20/2025 1:00 PM EDT Office Visit [facility] [address] [place] [address] Linsey Dawkins 05/31/2025 1:00 PM EDT Office Visit [address] [address] Sepideh Hopkins ANP [address] [place] [address] documented as of this encounter Procedures Procedure [...] on filedocumented in this encounter Care Teams Seismograph Chief Relationship Specialty Start Date End Date Sepideh Hopkins ANP [address] [place] [address] PCP - General Family Medicine 07/07/20 Vaishali Minor PharmD [address] [place] [address] Pharmacist Internal Medicine 10/29/24 documented as of this encounter
--- OUTSIDE RECORDS SUMMARY | 2025-02-19 16:51 | XMS_ITS | Encounter Summary ---
Author Organization [employer] Address [address] [facility] 7t [place] [address] Care Team Providers Care Insulation Professional Name Role Phone Sepideh Hopkins Primary Care Provider [phone] Vaishali Minor PharmD Unavailable [phone] Reason for Visit * Reason Comments Follow-up Encounter Details Date Type Department Care Team (Latest Contact Info) Description 02/19/2025 1:00 PM EDT Office Visit [facility] [address] [place] [address] Sepideh Hopkins ANP [address] [place] [address] Dysuria (Primary Dx); Diabetic polyneuropathy associated with type 2 diabetes mellitus (CMS/HCC); Chronic bilateral low back pain without sciatica Social History Tobacco Use Types Packs/Day Years [...] Sign Reading Time Taken Comments Blood Pressure 124/82 02/19/2025 1:39 PM EDT Pulse 79 02/19/2025 1:03 PM EDT Temperature 36.5 ??C (97.7 ??F) 02/19/2025 1:03 PM ED T Respiratory Rate 16 02/19/2025 1:03 PM EDT Oxygen Saturation 98% 02/19/2025 1:03 PM EDT Inhaled Oxygen Concentration - - Weight 68.3 kg (150 lb 9.6 oz) 02/19/2025 1:03 P M EDT Height - - Body Mass Index 28.46 09/18/2024 11:05 AM EST documented in this encounter Plan of Treatment Upcoming Encounters Date Type Department Care Team (Late st Contact Info) Description 02/20/2025 10:00 AM EDT Office Visit [facility] [address] [place] [address] Everett Angeles, DMD [address] [place] [address] 03/05/2025 3:30 PM EDT Office Visit [facility] [address] [place] [address] Juarez Damon, DDS [address] [place] [address] 03/12/2025 11:00 AM EDT Medication Management [facility] [address] [place] [address] Vaishali Minor, PharmD [address] [place] [address] 03/15/2025 10:30 AM EDT Office Visit [facility] [address] [place] [address] Everett Angeles, DMD [address] [place] [address] 05/20/2025 1:00 PM EDT Office Visit [facility] [address] [place] [address] Linsey Dawkins 05/31/2025 1:00 PM EDT Office Visit [facility] [address] [place] [address] Sepideh Hopkins, ANP [address] [place] [address] Scheduled Orders Name Type Priority Associated Diagnoses Orde r Schedule Culture, Urine, Routine Microbiology Routine Dysuria Expected: 02/19/2025 (Approximate), Expires: 02/19/2026 Bacterial Vaginosis Panel Microbiology Routine Dysuria Ordered: 02/19/2025 documented as of this encounter Procedures Procedure Name Priority Date/Time Associated Diagnosis Comments POCT URINALYSIS DIPSTICK Routine 02/19/2025 12:59 PM EDT Dysuria documented in this encounter Results * POCT Urinalysis (02/19/2025 12:59 PM EDT) Color, UA Yellow Clarity, UA Clear Glucose, UA 3+ 500+++ Bilirubin, UA Negative Ketones, UA Negative Spec Grav, UA 1.010 Blood, UA Negative Negative, None Detected pH, UA 6.0 Protein, UA Negative Urobilinogen, UA 0.2 Leukocytes, UA Negative Negative, Rare, Trace Nitrite, UA Negative Negative, None Detected Appearance, UA clear QC Media Lot # [id number] Lot# Expiration Date [id number] Urine 02/19/2025 12:5 9 PM EDT Sepideh CALDWELL POINT OF CARE TEST ENTER/EDIT OR DERABLES Final Result documented in this encounter Visit Diagnoses Diagnosis Dysuria- Primary Diabetic polyneuropathy associated with type 2 diabetes mellitus (CMS/HCC) Chronic bilateral low back pain without sciatica documented in this encounter Additional Health Concerns Assessment Noted Time PHQ-9 Depression Total Score: 5 11/23/19 25 1:05 PM EST documented as of this encounter Care Teams Insulation Professional Relationship Specialty Start Date End Date Sepideh Hopkins ANP [address] [place] [address] PCP - General Family Medicine 07/07/20 Vaishali Minor PharmD [address] [place] [address] Pharmacist Internal Medicine 10/29/24 documented as of this encounter
--- OUTSIDE RECORDS SUMMARY | 2025-02-19 16:51 | XMS_ITS | Encounter Summary ---
Author Organization [employer] Address [address] [facility] 7t [place] [address] Care Team Providers Care Dresser Tender Name Role Phone Sepideh Hopkins Primary Care Provider [phone] Vaishali Minor PharmD Unavailable [phone] Reason for Visit * Reason Comments Med Refill Encounter Details Date Type Department Care Team (Late st Contact Info) Description 01/05/2023 Refill [facility] [address] [place] [address] Sepideh Hopkins ANP [address] [place] [address] Social History Tobacco Use Types Packs/Day Years [...] Upcoming Encounters Date Type Department Care Team ([facility] Contact Info) Description 02/20/2025 10:00 AM EDT Office Visit [facility] [address] [place] [address] Everett Angeles, DMD [address] [place] [address] 03/05/2025 3:30 PM EDT Office Visit [facility] [address] [place] [address] Juarez Damon, DDS [address] [place] [address] 03/12/2025 11:00 AM EDT Medication Management [facility] [address] [place] [address] Vaishali Minor, PharmD [address] [place] [address] 03/15/2025 10:30 AM EDT Office Visit [facility] [address] [place] [address] Everett Angeles, DMD [address] [place] [address] 05/20/2025 1:00 PM EDT Office Visit [facility] [address] [place] [address] Linsey Dawkins 05/31/2025 1:00 PM EDT Office Visit [facility] [address] [place] [address] Sepideh Hopkins ANP [address] [place] [address] documented as of this encounter Visit Diagnoses Not on filedocumented in this encounter Care Teams Dresser Tender Relationship Specialty Start Date End Date Sepideh Hopkins ANP [address] [place] [address] PCP - General Family Medicine 07/07/20 Vaishali Minor PharmD [address] [place] [address] Pharmacist Internal Medicine 10/29/24 documented as of this encounter
--- OUTSIDE RECORDS SUMMARY | 2025-02-19 16:51 | XMS_ITS | Encounter Summary ---
Author Organization [employer] Address [address] [facility] [address]t [place] [address] Care Team Providers Care Remote Pilot Operator Name Role Phone Sepideh Hopkins JAVI Primary Care Provider [phone] Vaishali Minor PharmD Unavailable [phone] Reason for Visit * Reason Onset Date Comments Appointment 12/08/2022 Patient called i n inquiring about RCT appt with Pasquale. Encounter Details Date Type Department Care Team ([facility] Contact Info) Description 12/08/2022 Telephone [facility] [address] [place], [place] [phone] Gregorio Giordano, DMD [address] [place], [place] [phone] Appointment (Patient called in inquiring about RCT [...] called in inquiring about RCT appt with Kandru. FRANCIS documented in this encounter Plan of Treatment Upcoming Encounters Date Type Department Care Team (Late st Contact Info) Description 02/20/2025 10:00 AM EDT Office Visit [facility] [address] [place] [address] Everett Angeles, DMD [address] [place] [address] 03/05/2025 3:30 PM EDT Office Visit [facility] [address] [place] [address] Juarez Damon DDS [address] [place] [address] 03/12/2025 11:00 AM EDT Medication Management [facility] [address] [place] [address] Vaishali Minor, PharmD [address] [place] [address] 03/15/2025 10:30 AM EDT Office Visit [facility] [address] [place] [address] Everett Angeles, DMD [address] [place] [address] 05/20/2025 1:00 PM EDT Office Visit [facility] [address] [place] [address] Linsey Dawkins 05/31/2025 1:00 PM EDT Office Visit [facility] [address] [place] [address] Sepideh Hopkins ANP [address] [facility] [place] [address] documented as of this encounter Visit Diagnoses Not on filedocumented in this encounter Care Teams Remote Pilot Operator Relationship Specialty Start Date End Date Sepideh Hopkins ANP [address] [place] [address] PCP - General Family Medicine 07/07/20 Vaishali Minor PharmD [address] [place] [address] Pharmacist Internal Medicine 10/29/24 documented as of this encounter
--- OUTSIDE RECORDS SUMMARY | 2025-02-19 16:51 | XMS_ITS | Encounter Summary ---
Author Organization [email or web address] Address [address] [facility] 7t h Floor [place] [id number] Care Team Providers Care Sample Worker Name Role Phone Sepideh Hopkins Primary Care Provider [phone] Vaishali Minor PharmD Unavailable [phone] Encounter Details Date Type Department Care Team (Latest Contact Info) Description 07/23/2022 Abstract [facility] CONVERSIONS Dental, Provider, DDS Social History Tobacco [...] Description 02/20/2025 10:00 AM EDT Office Visit [facility] ADULT DENTAL [address] [place] [address] Everett Angeles, DMD [address] [place] [address] 03/05/2025 3:30 PM EDT Office Visit [facility] ADULT DENTAL [address] [place] [address] Juarez Damon DDS [address] [place] [address] 03/12/2025 11:00 AM EDT Medication Management [facility] MEDICINE [address] [place] [address] Vaishali Minor, IrwinD [address] [place] [address] 03/15/2025 10:30 AM EDT Office Visit [facility] ADULT DENTAL [address] [place] [address] Everett Angeles, DMD [address] [place] [address] 05/20/2025 1:00 PM EDT Office Visit [facility] ADULT DENTAL [address] [place] [address] Linsey Dawkins 05/31/2025 1:00 PM EDT Office Visit [facility] MEDICINE [address] [place] [address] Sepideh Hopkins ANP [address] [place] [address] documented as of this encounter Visit Diagnoses Not on filedocumented in this encounter Care Teams Sample Worker Relationship Specialty Start Date End Date Sepideh Hopkins ANP [address] [place] [address] PCP - General Family Medicine 07/07/20 Vaishali Minor PharmD [address] [place] [address] Pharmacist Internal Medicine 10/29/24 documented as of this encounter
--- OUTSIDE RECORDS SUMMARY | 2025-02-19 16:51 | XMS_ITS | Encounter Summary ---
Author Organization [employer] Address [address] [facility] 7t [place] [address] Care Team Providers Care Concept Artist Name Role Phone Sepideh Hopkins JAVI Primary Care Provider [phone] Vaishali Minor PharmD Unavailable [phone] Encounter Details Date Type Department Care Team (Latest Contact Info) Description 02/19/2025 Travel Social History Tobacco Use Types Packs/Day [...] 02/20/2025 10:00 AM EDT Office Visit [facility] ADULT DENTAL [address] [place] [address] Everett Angeles, DMD [address] [place] [address] 03/05/2025 3:30 PM EDT Office Visit [facility] ADULT DENTAL [address] [place] [address] Juarez Damon DDS [address] [place] [address] 03/12/2025 11:00 AM EDT Medication Management [facility] MEDICINE [address] [place] [address] Vaishali Minor, PharmD [address] [place] [address] 03/15/2025 10:30 AM EDT Office Visit [facility] ADULT DENTAL [address] [place] [address] Everett Angeles, DMD [address] [place] [address] 05/20/2025 1:00 PM EDT Office Visit [facility] ADULT DENTAL [address] [place] [address] Linsey Dawkins 05/31/2025 1:00 PM EDT Office Visit [facility] MEDICINE [address] [place] [address] Sepideh Hopkins ANP [address] [place] [address] documented as of this encounter Visit Diagnoses Not on filedocumented in this encounter Additional Health Concerns Assessment Noted Time PHQ-9 Depression Total Score: 5 11/23/19 25 1:05 PM EST documented as of this encounter Care Teams Concept Artist Relationship Specialty Start Date End Date Sepideh Hopkins ANP [address] [place] [id number] PCP - General Family Medicine 07/07/20 Vaishali Minor, IrwinD [address] [place] [phone] Pharmacist Internal Medicine 10/29/24 documented as of this encounter
--- OUTSIDE RECORDS SUMMARY | 2025-02-19 16:51 | XMS_ITS | Encounter Summary ---
Author Organization [employer] Address [address] [facility] 7t [place] [address] Care Team Providers Care Technology Sales Specialist Name Role Phone Sepideh Hopkins Primary Care Provider [phone] Vaishali Minor PharmD Unavailable [phone] Reason for Visit * Reason Comments Med Refill Encounter Details Date Type Department Care Team ([facility] st Contact Info) Description 02/27/2024 Refill [facility] MEDICINE [address] [place], [place] [phone] Sepideh Hopkins ANP [address] [place], [place] [phone] Social History Tobacco Use Types Packs/Day Years [...] Description 02/20/2025 10:00 AM EDT Office Visit [facility] ADULT DENTAL [address] [place] [address] Everett Angeles, DMD [address] [place] [address] 03/05/2025 3:30 PM EDT Office Visit [facility] ADULT DENTAL [address] [place] [address] Juarez Damon DDS [address] [place] [address] 03/12/2025 11:00 AM EDT Medication Management [facility] MEDICINE [address] [place] [address] Vaishali Minor, PharmD [address] [place] [address] 03/15/2025 10:30 AM EDT Office Visit [facility] ADULT DENTAL [address] [place] [address] Everett Angeles, DMD [address] [place] [address] 05/20/2025 1:00 PM EDT Office Visit [facility] ADULT DENTAL [address] [place] [address] Linsey Dawkins 05/31/2025 1:00 PM EDT Office Visit [facility] MEDICINE [address] [place] [address] Sepideh Hopkins ANP [address] [place] [address] documented as of this encounter Visit Diagnoses Not on filedocumented in this encounter Care Teams Technology Sales Specialist Relationship Specialty Start Date End Date Sepideh Hopkins ANP [address] [place] [address] PCP - General Family Medicine 07/07/20 Vaishali Minor PharmD [address] [place] [id number] Pharmacist Internal Medicine 10/29/24 documented as of this encounter
--- OUTSIDE RECORDS SUMMARY | 2025-02-19 16:51 | XMS_ITS | Encounter Summary ---
Author Organization [employer] Address [address] [facility] 7t [place] [address] Care Team Providers Care [facility] Name Role Phone Sepideh Hopkins ANP Primary Care Provider Vaishali Minor PharmD Unavailable Encounter Details Date Type Department Care Team (Late st Contact Info) Description 10/03/2023 Orders Only [facility] MEDICINE [address] [place] [address] Sepideh Hopkins ANP [address] [place] [address] Social History Tobacco Use Types Packs/Day Years [...] Description 02/20/2025 10:00 AM EDT Office Visit [facility] ADULT DENTAL [address] [place] [address] Everett Angeles DMD [address] [place] [address] 03/05/2025 3:30 PM EDT Office Visit [facility] ADULT DENTAL [address] [place] [address] Juarez Damon, ANNIES [address] [place] [address] 03/12/2025 11:00 AM EDT Medication Management [facility] MEDICINE [address] [place] [address] Vaishali Minor PharmD [address] [place] [address] 03/15/2025 10:30 AM EDT Office Visit [facility] ADULT DENTAL [address] [place] [address] Everett Angeles, YENI [address] [place] [address] 05/20/2025 1:00 PM EDT Office Visit [facility] ADULT DENTAL [address] [place] [address] Linsey Dawkins 05/31/2025 1:00 PM EDT Office Visit [facility] MEDICINE [address] [place] [address] Sepideh Hopkins ANP [address] [place] [address] documented as of this encounter Visit Diagnoses Not on filedocumented in this encounter Care Teams [facility] Relationship Specialty Start Date End Date Sepideh Hopkins ANP [address] [place] [phone] PCP - General Family Medicine 07/07/20 Vaishali Minor, Leonidas [address] [place] [address] Pharmacist Internal Medicine 10/29/24 documented as of this encounter
--- OUTSIDE RECORDS SUMMARY | 2025-02-19 16:51 | XMS_ITS | Encounter Summary ---
Author Organization [employer] Address [address] [facility] 7t [place] [address] Care Team Providers Care Industrial Chemist Name Role Phone Sepideh Hopkins Primary Care Provider [phone] Vaishali Minor PharmD Unavailable [phone] Reason for Visit * Reason Comments Med Refill Encounter Details Date Type Department Care Team ([facility] st Contact Info) Description 06/22/2024 Refill [facility] MEDICINE [address] [place], [place] [phone] Sepideh Hopkins ANP [address] [place], [place] [phone] Social History Tobacco Use Types Packs/Day Years [...] Description 02/20/2025 10:00 AM EDT Office Visit [facility] ADULT DENTAL [address] [place] [address] Everett Angeles, DMD [address] [place] [address] 03/05/2025 3:30 PM EDT Office Visit [facility] ADULT DENTAL [address] [place] [address] Juarez Damon DDS [address] [place] [address] 03/12/2025 11:00 AM EDT Medication Management [facility] MEDICINE [address] [place] [address] Vaishali Minor, PharmD [address] [place] [address] 03/15/2025 10:30 AM EDT Office Visit [facility] ADULT DENTAL [address] [place] [address] Everett Angeles, DMD [address] [place] [address] 05/20/2025 1:00 PM EDT Office Visit [facility] ADULT DENTAL [address] [place] [address] Linsey Dawkins 05/31/2025 1:00 PM EDT Office Visit [facility] MEDICINE [address] [place] [address] Sepideh Hopkins ANP [address] [place] [address] documented as of this encounter Visit Diagnoses Not on filedocumented in this encounter Care Teams Industrial Chemist Relationship Specialty Start Date End Date Sepideh Hopkins ANP [address] [place] [address] PCP - General Family Medicine 07/07/20 Vaishali Minor PharmD [address] [place] [address] Pharmacist Internal Medicine 10/29/24 documented as of this encounter
--- OUTSIDE RECORDS SUMMARY | 2025-02-19 16:51 | XMS_ITS | Encounter Summary ---
Author Organization [employer] Address [address] [place] [address] 7t [place] [address] Care Team Providers Care Research Coordinator Name Role Phone Sepideh Hopkins Primary Care Provider [phone] Vasihali Minor PharmD Unavailable [phone] Reason for Visit * Reason Comments Med Refill Encounter Details Date Type Department Care Team (Late st Contact Info) Description 06/16/2023 Refill [facility] MEDICINE [address] [place] [address] Tisha Cornelius FNP [address] [place] [address] Dept [place] [address] Social History Tobacco Use Types Packs/Day Years [...] Description 02/20/2025 10:00 AM EDT Office Visit [facility] ADULT DENTAL [address] [place], [place] [phone] Everett Angeles DMD [address] [place] [address] 03/05/2025 3:30 PM EDT Office Visit [facility] ADULT DENTAL [address] [place], [place] [phone] Juarez Damon, DDS [address] [place] [address] 03/12/2025 11:00 AM EDT Medication Management [facility] MEDICINE [address] [place] [address] Vaishali Minor PharmD [address] [place] [address] 03/15/2025 10:30 AM EDT Office Visit [facility] ADULT DENTAL [address] [place] [address] Everett Angeles, DMD [address] [place] [address] 05/20/2025 1:00 PM EDT Office Visit [facility] ADULT DENTAL [address] [place] [address] Linsey Dawkins 05/31/2025 1:00 PM EDT Office Visit [facility] MEDICINE [address] [place] [address] Sepideh Hopkins ANP [address] [place] [address] documented as of this encounter Visit Diagnoses Not on filedocumented in this encounter Care Teams Research Coordinator Relationship Specialty Start Date End Date Sepideh Hopkins ANP [address] [place] [address] PCP - General Family Medicine 07/07/20 Vaishali Minor PharmD [address] [place] [address] Pharmacist Internal Medicine 10/29/24 documented as of this encounter
--- OUTSIDE RECORDS SUMMARY | 2025-02-19 16:51 | XMS_ITS | Clinical Summary ---
Author Organization [employer] Address [address] [facility] [address] [place] [address] Care Team Providers Care Legislative Correspondent Name Role Phone Neil Bernard JAVI Primary Care Provider [phone] Vaishali Minor PharmD Unavailable [phone] Allergies No known active allergies Medications * [...] bedtime for rash. 30 g 024 Active Lancets (Unilet Micro-Thin 33G) miscIndications: Type 2 diabetes mellitus with hyperglycemia ([facility]) TEST BLOOD SUGAR THREE TIMES DAILY 300 each 11 024 Active LORazepam (Ativan) 0.5 MG tablet Take 0.5 mg by mouth if needed in the morning and at bedtime for anxiety. 024 Active zolpidem (Ambien) 10 MG tablet Take 10 mg by mouth if needed at bedtime. 024 Active cetirizine (ZyrTEC) 10 MG tablet TAKE 1 TABLET BY MOUTH EVERY MORNING 90 tablet 3 024 Active albuterol (2.5 MG/3ML) 0.083% nebulizer solutionIndicati ons:Chronic obstructive pulmonary disease with acute exacerbation ([facility]) Take 3 mL (2.5 mg) by nebulization every 6 (six) hours if needed for wheezing or shortness of breath. 75 mL 3 024 2024 Active albuterol 108 (90 Base) MCG/ACT inhaler Inhale 2 puffs every 4 (four) hours. 18 g 5 Active Spacer/Aero-Hold ing Chambers (OptiChamber Luz) misc 1 each every 4 (four) hours if needed (asthma). 1 each 024 Active Continuous Glucose Vice Investigator (FreeStyle Dagmar 2 [place]) deviceIndication s:Type 2 diabetes mellitus with hyperlipidemia ([facility]) ([facility]) Scan sensor every 8 hours 1 each Active Continuous Glucose Sensor (FreeStyle Dagmar 2 Sensor) miscIndications: Type 2 diabetes mellitus with hyperlipidemia ([facility]/HCC) ([facility]) Apply 1 sensor every 14 days 2 each Active glucose blood (FreeStyle Precision Nader Test) test stripIndications :Type 2 diabetes mellitus with hyperlipidemia ([facility]/HCC) ([facility]) Use to test blood sugar 3 times [...] DAILY BEFORE MEALS AND AT BEDTIME Active lidocaine (Lidoderm) 5 % patchIndications :Neck pain APPLY 1 PATCH TOPICALLY TO SKIN, LEAVE ON FOR 12 HOURS AND OFF FOR 12 HOURS DIRECTED 30 patch 2 Active metoprolol succinate XL (Toprol-XL) 50 MG 24 hr tabletIndication s:Hypertension associated with diabetes ([facility]) TAKE 1 TABLET BY MOUTH EVERY MORNING DO NOT BREAK, CRUSH, DISSOLVE OR CHEW 90 tablet 1 Active sertraline (Zoloft) 100 MG tablet Take 1 tablet by mouth once daily Active sodium chloride (Juab) 0.65 % nasal sprayIndications :Nasal congestion 2 sprays into each nostril twice daily 30 mL 3 025 Active buPROPion SR (Wellbutrin SR) 100 MG 12 hr tabletIndication s:Mixed anxiety and depressive disorder TAKE 1 TABLET BY MOUTH EVERY MORNING 30 tablet 2 025 Active cholecalciferol VITAMIN D (Vitamin D-3) 50 MCG (2000 UT) tablet TAKE 1 TABLET BY MOUTH EVERY MORNING 90 tablet 1 025 Active glucose (Glutose) 40 % gel oral gelIndications:T ype 2 diabetes mellitus with hyperlipidemia (CMS/HCC) ([facility]) Use as needed for low blood sugar 45 g 11 025 Active tiotropium (Spiriva HandiHaler) 18 MCG inhalation capsule USE 1 CAPSULE FOR INHALATION EVERY MORNING. DO NOT SWALLOW CAPSULE. 30 capsule 5 025 Active Symbicort 160-4.5 MCG/ACT inhaler INHALE 2 PUFFS TWICE DAILY IN THE MORNING AND AT BEDTIME. RINSE MOUTH AFTER USING. DO NOT SWALLOW. 10.2 g 5 025 Active magnesium oxide (Mag-Ox) 400 MG tablet Take 1 tablet by mouth Once per day. 025 Active Ozempic, 1 MG/DOSE, 4 MG/3ML solution pen-injector Inject 1 MG SUBCUTANEOUSLY EVERY 7 DAYS IN THE ABDOMEN, THIGHS OR UPPER ARM. ROTATE INJECTION SITES. 025 Active empagliflozin (Jardiance) 10 MGIndications:Ty pe 2 diabetes mellitus with hyperlipidemia (CMS/HCC) (CMS/HCC) Take 1 tablet by mouth once daily in the morning 90 tablet 025 Active aspirin (Aspirin Adult Low Strength) 81 MG EC tabletIndication s:Type 2 diabetes mellitus with hyperlipidemia (CMS/HCC) ([facility]) Take 1 tablet (81 mg) by mouth in the morning. 90 tablet 3 025 Active fluticasone (Flonase) 50 MCG/ACT nasal sprayIndications :Allergic rhinitis, unspecified seasonality, unspecified trigger SPRAY 1 SPRAY IN EACH NOSTRIL TWICE DAILY 48 g 1 025 Active apixaban (Eliquis) 2.5 MG tabletIndication s:History of pulmonary embolism TAKE 1 TABLET BY MOUTH TWICE DAILY IN THE MORNING AND IN THE EVENING 60 tablet 3 025 Active acetaminophen (Tylenol Extra Strength) 500 MG tabletIndication s:Chronic maxillary sinusitis Take 1-2 tablets by mouth every 8 hours as needed 30 tablet 025 Active insulin glargine (Lantus SoloStar) 100 UNIT/ML penIndications:T ype 2 diabetes mellitus with hyperlipidemia (CMS/HCC) ([facility]) INJECT SUBCUTANEOUSLY 16 UNITS ONCE DAILY 025 Active insulin pen needle (BD Pen Needle Sienna U/F) 32G x 4 mm miscIndications: Type 2 diabetes mellitus with hyperglycemia ([facility]) Use as instructed with insulin administration once daily 100 each 3 025 Active atorvastatin (Lipitor) 40 MG tabletIndication s:Hyperlipidemia , unspecified hyperlipidemia type TAKE 1 TABLET BY MOUTH AT BEDTIME 90 tablet 3 025 Active metFORMIN XR (Glucophage-XR) 500 MG 24 hr tablet TAKE 1 TABLET BY MOUTH TWICE DAILY IN THE MORNING AND IN THE EVENING WITH MEALS 180 tablet 3 025 Active fenofibrate micronized (Lofibra) 134 MG capsuleIndicatio ns:Hyperlipidemi a, unspecified hyperlipidemia type TAKE 1 CAPSULE BY MOUTH EVERY MORNING 90 capsule 3 025 Active gabapentin (Neurontin) 300 MG capsuleIndicatio ns:Diabetic polyneuropathy associated with type 2 diabetes mellitus ([facility]/HCC) Take 2 capsules AM and 2 capsules at bedtime 120 capsule 2 025 Active traMADol (Ultram) 50 MG tabletIndication s:Chronic bilateral low back pain without sciatica Take 1 tablet (50 mg) by mouth every 8 (eight) hours if needed for severe pain for up to 7 days. 20 tablet 025 2024 Active BD Pen Needle Sienna U/F 32G X 4 MM miscIndications: Type 2 diabetes mellitus with hyperglycemia ([facility]),assisted (current) use of insulin ([facility]) USE FOUR TIMES DAILY 100 each 11 024 2024 Discontinued atorvastatin (Lipitor) 40 MG tabletIndication s:Hyperlipidemia , unspecified hyperlipidemia type Take 1 tablet (40 mg) by mouth at bedtime. 90 tablet 3 024 2024 Discontinued fenofibrate micronized (Lofibra) 134 MG capsuleIndicatio ns:Hyperlipidemi a, unspecified hyperlipidemia type Take 1 capsule (134 mg) by mouth in the morning. 90 capsule 3 024 2024 Discontinued Blood Pressure kit 1 each 2 times daily. 1 kit 024 2024 Discontinued(M ed list cleanup (will not trigger notification to Pharmacy)) metFORMIN XR (Glucophage-XR) 500 MG 24 hr tablet TAKE 1 TABLET BY MOUTH TWICE DAILY IN THE MORNING AND IN THE EVENING WITH MEALS 180 tablet 1 024 2024 Discontinued(R eorder (will not trigger notification to Pharmacy)) apixaban (Eliquis) 2.5 MG tabletIndication s:History of pulmonary embolism TAKE 1 TABLET BY MOUTH TWICE DAILY IN THE MORNING AND IN THE EVENING 60 tablet 3 024 2024 Discontinued fluticasone (Flonase) 50 MCG/ACT nasal sprayIndications :Allergic rhinitis, unspecified seasonality, unspecified trigger SPRAY 1 SPRAY IN EACH NOSTRIL TWICE DAILY 48 g 1 024 2024 Discontinued(R eorder (will not trigger notification to Pharmacy)) gabapentin (Neurontin) 300 MG capsuleIndicatio ns:Diabetic polyneuropathy associated with type 2 diabetes mellitus ([facility]) Take 1 capsule AM and 2 capsules at bedtime 120 capsule 2 025 2024 Discontinued(R eorder (will not trigger notification to Pharmacy)) insulin glargine (Lantus SoloStar) 100 UNIT/ML penIndications:T ype 2 diabetes mellitus with hyperlipidemia (CMS/HCC) ([facility]) INJECT SUBCUTANEOUSLY 22 UNITS ONCE DAILY 025 2024 Discontinued amoxicillin-clav ulanate (Augmentin) 875-125 MG tablet Take 1 tablet by mouth 2 times daily for 7 days. 14 tablet 025 2024 ibuprofen 600 MG tablet Take 1 tablet (600 mg) by mouth 3 times daily for 10 days. 30 tablet 025 2024 chlorhexidine (Peridex) 0.12 % solution Use 15 mL in the mouth or throat if needed in the morning, at noon, and at bedtime (PROPHYLAXIS) for up to 5 days. 110 mL 025 2024 Hospital, Clinic, or Other Facility Administered Medication Ordered Dose Route Frequency Start Date End Date Status predniSONE (Deltasone) tablet 40 mgIndications:Mild intermittent asthma with exacerbation 40 mg PO Daily 05/08/2024 Active albuterol 108 (90 Base) MCG/ACT inhaler 2 puffIndications:Mild intermittent asthma with exacerbation 2 puff IN Every 4 hours PRN 05/08/2024 Active Active Problems Problem Noted Date Diagnosed Date Personal history of nicotine dependence 02/02/20 Overview (02/01/2025): (former smoker - onset 19yo, 1ppd x 42yrs, 40pyh - quit 2021) Sinus congestion 02/01/2025 Assessment & Plan (02/01/2025 1:24 PM EDT): Images from the original note were not included. Treat with Augmentin and Flonase x 7 days Replace ENT referral for chronic sinusitis Updated Procedure 02/01/25 1303 Influenza A (ID NOW Rapid Molecular) Collected: 02/01/25 1302 Final result Specimen: Swab Influenza A Negative 02/01/25 1302 Influenza B (ID NOW Rapid Molecular) Collected: 02/01/25 1302 Final result Specimen: Swab Influenza B Negative 02/01/25 1302 POCT Rapid COVID Ag Collected: 02/01/25 1302 Final result Specimen: Swab Rapid COVID Ag Negative Dental plaque 11/14/2024 Bone spicules of jaw [...] Encounters Date Type Department Care Team Description 02/19/2025 1:00 PM EDT Office Visit [facility] [address] [place] [address] Neil Bernard ANP Dysuria (Primary Dx); Diabetic polyneuropathy associated with type 2 diabetes mellitus (CMS/HCC); Chronic bilateral low back pain without sciatica 02/19/2025 Orders Only [facility] [address] [place] [address] Neil Bernard ANP 02/19/2025 Travel 02/18/2025 Telephone [facility] [address] [place] [address] Aryan Mai [place] CHART PREP 02/10/2025 Refill [facility] PEDS [address] [place] [address] Ramez Schroeder MD Hyperlipidemia, unspecified hyperlipidemia type 02/06/2025 Refill [facility] [address] [place] [address] Neil Bernard ANP 02/06/2025 Refill [facility] [address] [place] [address] Ramez Schroeder MD Hyperlipidemia, unspecified hyperlipidemia type 02/05/2025 Patient Outreach [facility] [address] [place] [address] Neil Bernard ANP Pre-visit Planning (Pre-visit planning - unable to complete, patient is in an appointment. ) 02/05/2025 Travel 02/04/2025 Refill [facility] [address] [place] [address] Neil Bernard ANP Chronic maxillary sinusitis 02/02/2025 Refill [facility] [address] [place] [phone] Neil Bernard ANP History of pulmonary embolism 02/01/2025 2:40 PM EDT Office Visit [facility] [address] [place] [address] Dina Kulkarni MD Chronic maxillary sinusitis (Primary Dx); Sinus congestion; Allergic rhinitis, unspecified seasonality, unspecified trigger; Dietary counseling; Exercise counseling; Overweight 02/01/2025 2:00 PM EDT Office Visit [facility] ADULT DENTAL [address] [place] [address] Everett Angeles DMD 01/23/2025 Telephone [facility] [address] [place] [address] Neil Bernard ANP novolog 01/22/2025 Travel 01/18/2025 Population Health Risk Score [facility] () Department [address] [place] [id number] Provider, Population Health Generic 01/17/2025 3:15 PM EDT Office Visit [facility] OPTOMETRY [address] [place] [address] Shreya Roberto, LAURI Presbyopia (Primary Dx) 01/17/2025 1:30 PM EDT Office Visit [facility] ADULT DENTAL [address] [place] [address] Everett Angeles DMD 01/15/2025 Patient Outreach [facility] [address], [place] [phone] Neil Bernard ANP Care Coordination (Outreach) 01/15/2025 Telephone [facility]ED[facility] [address] [place] [address] Neil Bernard ANP Care Coordination ([facility] program graduation) 01/15/2025 Travel 01/10/2025 Orders Only [facility] [address] [place] [address] ProviderJan MD 01/09/2025 Telephone [facility] [address] [place] [phone] Neil Bernard ANP Medication Question 01/09/2025 Orders Only [facility] [address] [place] [phone] Neil Bernard ANP Diabetic polyneuropathy associated with type 2 diabetes mellitus ([facility]) 01/09/2025 Orders Only GENERIC EXTERNAL DATA DEPARTMENT Provider, Generic External Data 01/08/2025 Travel 01/05/2025 Refill [facility] [address] [place] [phone] Jassi Chapman MD 01/01/2025 2:30 PM EST Office Visit [facility] ADULT DENTAL [address] [place] [phone] Juarez Daomn DDS Bone spicules of jaw (Primary Dx) 01/01/2025 Patient Outreach [facility]ED[facility] [address] [place] [address] Neil Bernard ANP Care Coordination (Outreach) 12/31/2024 Telephone [facility] [address] [place] [phone] Neil Bernard ANP Call Back Request; Medication Question 12/17/2024 Telephone [facility] [address] [place] [phone] Sharon Garrison, merchandise for resale purchasing agent Change 12/17/2024 Telephone [facility] [address] [place] [phone] Vaishali Minor, PharmD 12/17/2024 Orders Only [facility] [address] [place] [address] Neil Bernard ANP 12/14/2024 Refill [facility] [address] [place] [phone] Neil Bernard ANP Diabetic polyneuropathy associated with type 2 diabetes mellitus (CMS/HCC) (Primary Dx) 12/14/2024 Patient Outreach [facility] [address] [place] [address] Neil Bernard ANP Care Coordination (Outreach) 12/13/2024 Telephone [facility] [address] [place] [phone] Neil Bernard ANP Durable Medical Equipment (Shower chair) 12/13/2024 Refill [facility] [address] [place] [address] Neil Bernard ANP Type 2 diabetes mellitus with hyperlipidemia (CMS/HCC) (CMS/HCC) 12/11/2024 1:00 PM EST Office Visit [facility] OPTOMETRY [address] [place] [address] Pardeep, Shreya, OD Diabetes type 2, no ocular involvement ([facility]/HCC) (Primary Dx); Nuclear sclerotic cataract of both eyes; Vitelliform lesion of macula; 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; Dry eyes; Presbyopia 12/10/2024 9:00 AM EST Immunization [facility] [address] [place] [phone] Nano Baxter LPN Encounter for immunization (Primary Dx) 12/10/2024 Telephone [facility] [address] [place] [phone] Kesha Wilkinson [place] Joana recall 12/10/2024 Telephone [facility] [address] [place] [address] Vaishali Minor, PharmD 12/10/2024 Travel 12/08/2024 Refill [facility] [address] [place] [address] Neil Bernard ANP Mixed anxiety and depressive disorder 11/30/2024 12:00 PM EST Office Visit [facility] ADULT DENTAL [address] [place] [phone] Juarez Damon DDS Bone spicules of jaw (Primary Dx) 11/30/2024 11:30 AM EST Office Visit [facility] ADULT DENTAL [address] [place] [phone] Sadaf Hernandez DDS Alveolitis of maxilla (Primary Dx) 11/30/2024 Patient Outreach [facility] [address] [place] [address] Neil Bernard ANP Care Coordination (Outreach) 11/23/2024 1:00 PM EST Telemedicine [facility] [address] [place] [phone] Neil Bernard ANP Dizziness (Primary Dx); Chronic maxillary sinusitis 11/23/2024 Travel 11/23/2024 Telephone [facility] [address] [place] [phone] Taylor Dai, RN Results 11/23/2024 Orders Only [address] [address] Neil Bernard ANP Chronic maxillary sinusitis (Primary Dx); Nasal congestion from Last 3 Months Immunizations Name Administration [...] PCV 20 12/10/2024 Pneumococcal Polysaccharide PPSV23 06/26/2012 RSV Bivalent 01/22/2025 TD (adult), 2 Lf tetanus tox oid, [...] 36.5 ??C (97.7 ??F) 02/19/2025 1:03 PM E DT Respiratory Rate 16 02/19/2025 1:03 PM EDT Oxygen Saturation 98% 02/19/2025 1:03 PM EDT Inhaled Oxygen Concentration - - Weight 68.3 kg (150 lb 9.6 oz) 02/19/2025 1:03 P M EDT Height 154.9 cm (5' 1 ) 09/18/2024 11:05 AM EST Body Mass Index 28.46 09/18/2024 11:05 AM EST Plan of Treatment Upcoming Encounters Date Type Department Care Team (Late st Contact Info) Description 02/20/2025 10:00 AM EDT Office Visit [facility] ADULT DENT[facility] [address] [place] [address] Everett Angeles, DMD [address] [place] [address] 03/05/2025 3:30 PM EDT Office Visit [facility] AD[facility] D[facility] [address] [place] [address] Juarez Damon DDS [address] [place] [address] 03/12/2025 11:00 AM EDT Medication Management [facility] [address] [place] [address] Vaishali Minor, PharmD [address] [place] [address] 03/15/2025 10:30 AM EDT Office Visit [facility] AD[facility] D[facility] [address] [place] [address] Everett Angeles, DMD [address] [place] [address] 05/20/2025 1:00 PM EDT Office Visit [facility] AD[facility] D[facility] [address] [place] [address] Linsey Dawkins 05/31/2025 1:00 PM EDT Office Visit [facility] [address] [place] [address] Neil Bernard ANP [address] [place] [address] Health Maintenance Due Date Last Done Comments CT Colonography 1961 FIT DNA/Cologuard 1961 FIT 1961 FOBT 1961 HIV Screening 1961 Sigmoidoscopy 1961 Diabetes: Foot Exam 1971 Hepatitis C Screening 1979 Pap Smear 1982 HPV/Cotest 1991 Cervical Cancer Screening 02/19/2025 Po stponed from 1991 (Patient Refused) Dental Oral Exam 03/25/2025 09/24/2024 Diabetes: Hemoglobin A1C 05/07/2025 025, 11/12/2024, 08/17/2024, Additional history exists Dental Prophylaxis 05/15/2025 11/14/2024 Mammogram 06/06/2025 06/06/2024, 05/09, 12/03/2022, Additional history exists Dental X-Ray: Bitewings 09/25/2025 09/24/2024 Alcohol/Substance Use Screening 10/01/2025 10/01/2024 SDOH Screening 10/10/2025 10/10/2024 Diabetes: Urine Protein Screening 10/12/2025 10/12/2024, 09/03/2022, 08/04/2021 Depression Screening 11/23/2025 11/23/2024, 11/23/19 25 Lipid Panel 12/17/2025 12/17/2024, 11/09, 01/27/2022, Additional history exists Colonoscopy 01/09/2026 01/09/2025, 04/15/2015 Colorectal Cancer Screening 01/09/2026 Tobacco Screening 02/19/2026 02/19/2025 Eye Exam 12/11/2026 12/11/2024, 02/2025, 12/11/2024, Additional history exists Dental X-Ray: Full Mouth 09/25/2027 09/24/2024 DTaP/Tdap/Td Vaccines (3 - Td or Tdap) 11/18/2033 11/18/2023, 07/12/2013, 05/19/2006 Hepatitis B Vaccines Completed 06/26/2012, 06/18/2003, 05/16/2003 Zoster Vaccines Completed 07/28/2020, 11/08/2019 COVID-19 Vaccine Completed 08/17/2024, 08/2022, 02/18/2021, Additional history exists Influenza Vaccine Completed 08/17/2024, , 09/03/2022, Additional history exists Pneumococcal Vaccine: 50+ Years Completed 12/10/2024, 06/26/2012 RSV Patients and Patients Aged 60 years or older Completed 01/22/2025 HIB Vaccines Aged Out No longer eligi [...] Procedure Name Priority Date/Time Associated Diagnosis Comments BASIC METABOLIC PANEL Routine 02/19/2025 1:44 PM EDT POCT URINALYSIS DIPSTICK Routine 02/19/2025 12:59 PM EDT Dysuria POCT GLYCATED HEMOGLOBIN, TOTAL Routine 02/05/2025 11:19 AM EDT Type 2 diabetes mellitus with hyperlipidemia (CMS/HCC) ([facility]) DENTURE IMPRESSION Routine 02/01/2025 2: 00 PM EDT BITE REGISTRATION Routine 02/01/2025 2:0 0 PM EDT POCT RAPID COVID ANTIGEN Routine 02/01/2025 1:02 PM EDT Sinus congestion POCT INFLUENZA B (ID NOW RAPID MOLECULAR) Routine 02/01/2025 1:02 PM EDT Sinus congestion POCT INFLUENZA A (ID NOW RAPID MOLECULAR) Routine 02/01/2025 1:02 PM EDT Sinus congestion DENTURE IMPRESSION Routine 01/17/2025 1: 30 PM EDT HEMATOXYLIN AND EOSIN STAIN Routine 01/09/2025 10:08 AM EST Diabetic polyneuropathy associated with type 2 diabetes mellitus (CMS/HCC) GLUCOSE, WHOLE BLOOD Routine 01/09/2025 9:31 AM EST HM COLONOSCOPY Routine 01/09/2025 8:51 AM EST RE-EVAL - POST-OP OFFICE VISIT Routine 01/01/2025 2:30 PM EST VASC US CAROTID ARTERY DUPLEX BILATERAL Routine 12/27/2024 10:39 AM EST LIPID PANEL, STANDARD Routine 12/17/2024 6:58 AM EST HEPATIC FUNCTION PANEL Routine 12/17/2024 6:58 AM EST OCT, RETINA - OU - BOTH EYES Routine 12/11/2024 1:00 PM EST Vitelliform lesion of macula NO CHARGE VISIT Routine 11/30/2024 12:00 PM EST INTRAORAL - PERIAPICAL FIRST RADIOGRAPHIC IMAGE Routine 11/30/2024 11:30 AM EST Alveolitis of maxilla LIMITED ORAL EVALUATION - PROBLEM FOCUSED Routine 11/30/2024 11:30 AM EST Alveolitis of maxilla PROPHYLAXIS - ADULT Routine 11/14/2024 1 :00 PM EST Dental calculus Dental plaque ALBUMIN, RANDOM URINE W/CREATININE Routine 10/12/2024 9:52 AM EST SANDRINE (acute kidney injury) (CMS/HCC) Type 2 diabetes mellitus with hyperlipidemia (CMS/HCC) (CMS/HCC) INTRAORAL - COMPLETE SERIES OF RADIOGRAPHIC IMAGES Routine 09/24/2024 1:00 PM EST PERIODIC ORAL EVALUATION - ESTABLISHED PATIENT Routine 09/24/2024 1:00 PM EST BI MAMMOGRAM SCREENING TOMOSYNTHESIS BILATERAL Routine 06/06/2024 1:12 PM EDT from Last 3 Months or Most Recently Relevant to Health Maintenance Results * (ABNORMAL) Basic Metabolic Panel (02/19/2025 1:44 PM EDT) Sodium 140 135 - 145 mmol/L [facility] Potassium 4.2 3.3 - 5.1 mmol/L [facility] Chloride 109(H) 96 - 108 mmol/L [facility] Carbon Dioxide 24 22 - 29 mmol/L [facility] Anion Gap 11(L) 12 - 20 [facility] Urea Nitrogen (BUN) 22(H) 9 - 16 mg/dL [facility] Creatinine, Serum 1.17 0.5 - 1.4 mg/dL [facility] Estimated Glomerular Filt Rate 47 [facility] Comment:Chronic Kidney Disea se: Estimated GFR < 60 mL/min/[id number] Kidney Disease: Estimated GFR < 15 mL/min/1.73m2 Glucose 115 60 - 115 mg/dL [facility] Calcium 10.1 8.4 - 10.2 mg/dL [facility] 02/19/2025 1:44 PM EDT 02/19/2025 4:10 PM EDT us Neil Bernard ANP LAB BLOOD ORDERABLES Final Resul t Performing Organization Address City/State/[facility] Co de Phone Number [facility] [address] [place] [phone] * POCT Urinalysis (02/19/2025 12:59 PM EDT) [...] Media Lot # [id number] Lot# Expiration Date [id number] Urine 02/19/2025 12:5 9 PM EDT us Neil Bernard ANP POINT OF CARE TEST ENTER/EDIT OR DERABLES Final Result * (ABNORMAL) POCT A1C (02/05/2025 11:19 AM EDT) [facility] Hemoglobin A1C 7.0(A) 4.0 - 6.0 % QC Media Lot # [id number] Lot# Expiration Date Blood 02/05/2025 11:1 9 AM EDT Neil CALDWELL POINT OF CARE TEST ENTER/EDIT OR DERABLES Final Result * Influenza B (ID NOW Rapid Molecular) (02/01/2025 1:02 PM EDT) [facility] Influenza B Negative Negative, Indeterminate [facility] Swab 02/01/2025 1:02 PM EDT Result [facility] Dina Kulkarni MD POINT OF CARE TEST ENTER/EDIT ORDERABLES Final Result Performing Organization Address [facility]/ZIP Co de Phone Number [facility] [address] [place] [phone] * Influenza A (ID NOW Rapid Molecular) (02/01/2025 1:02 PM EDT) [facility] Influenza A Negative Negative, Indeterminate [facility] Swab 02/01/2025 1:02 PM EDT Result [facility] Dina Kulkarni MD POINT OF CARE TEST ENTER/EDIT ORDERABLES Final Result Performing Organization Address [facility]/ZIP Co de Phone Number [facility] [address] [place] [phone] * POCT Rapid COVID Ag (02/01/2025 1:02 PM EDT) [facility] Rapid COVID Ag Negative Swab 02/01/2025 1:02 PM EDT Result [facility] Dina Kulkarni MD POINT OF CARE TEST ENTER/EDIT ORDERABLES Final Result * Hematoxylin and Eosin Stain (01/09/2025 10:08 AM EST) 01/09/2025 10:0 8 AM EST 01/09/2025 11:50 AM EST [facility] - 01/11/2025 9:36 AM EST ----- ------- Name: Joelle Myers I ?Age/Sex: 64/F ? : 1960 Unit#: [id number] ?? Attend Dr: Wilfrid Jennings MD ?Re01/09/25 ?Status: DEP SDC ? Location: HO.SSS ?Disch: ? ----- ------- SPEC : [id number] ? RECD: 01/09/25-1150 ? STATUS: ??SOUT ? REQ NUM: [id number] ? MARCO: 01/09/25-1008 ? SUBM DR: Wilfrid Jennings MD ? ENTERED: ??01/09/25-4624 ?SP TYPE: Surgical ? OTHR DR: NEIL BERNARD NP ? ORDERED: ??HE Stain/12, Gross Micro L4/4, IHC, Special st. 2/2, H. pylori, AB/PAS/2 ? Diagnosis ?? A. ??Stomach, biopsy: ??Oxyntic mucosa within normal limits; no Helicobacter organisms ?? seen. ? B. ??Esophagus, distal, biopsy: ?- Cardiofundic-type mucosa within normal limits; no intestinal metaplasia seen. ?- Squamous epithelium within normal limits. ? C. ??Colon, sigmoid, polypectomy: ??Tubular adenoma; negative for high-grade dysplasia or ?? carcinoma. ? D. ??Rectum, polypectomies: ??Hyperplastic mucosal polyps. ?Clinical History Pre-Op Dx: ??GERD Post-Op Dx: Gastritis, colon polyps, internal hemorrhoids, diverticulosis ?Microscopic Description A-D. ??Microscopic sections examined. ??No metaplastic changes are seen, supported by AB/PAS stains (A and B); no Helicobacter organisms are seen, supported by H. pylori immunostain (A). ? Material Received ?? A. Stomach bx ?? B. Distal esophagus bx ?? C. Sigmoid polyp ?? D. Rectal polyps ? Gross Description Received in four parts. Part A: ??Received in formalin labeled ?stomach bx? are 3 jason-pink irregular tissue fragments ranging from 0.15-0.3 cm, submitted in toto in a cassette labeled A. Part B: ??Received in formalin labeled ?distal esophagus bx? are 3 jason irregular tissue fragments ranging from 0.15-0.25 cm, submitted in toto in a cassette labeled B. Part C: ??Received in formalin labeled ?sigmoid polyp? is a 0.3 cm jason papular tissue fragment, submitted in toto in a cassette labeled C. ? CONTINUED ON NEXT PAGE ----- ------- Name: Joelle Myers I ?Age/Sex: 64/F ? : 1960 Unit#: [id number] ?? Attend Dr: Wilfrid Jennings MD ?Re01/09/25 ?Status: DEP SDC ? Location: HO.SSS ?Disch: ? ----- ------- SPEC : [id number] ? RECD: 01/09/25-1149 ? STATUS: ??SOUT ? REQ NUM: [id number] ? MARCO: 01/09/25-1008 ? SUBM DR: Wilfrid Jennings MD ? ENTERED: ??01/09/25-1154 ?SP TYPE: Surgical ? OTHR DR: NEIL BERNARD NP ? ORDERED: ??HE Stain/12, Gross Micro L4/4, IHC, Special st. 2/2, H. pylori, AB/PAS/2 ? Gross Description ?(Continued) Part D: ??Received in formalin labeled ?rectal polyps? are 2 jason and jason-pink papular tissue fragments measuring 0.35 and 0.5 cm, submitted in toto in a cassette labeled D. ??CEDS Special studies ordered and performed: Immunostain for H. pylori on A; AB/PAS stains on A and B Copies To: ?? Wilfrid Jennings MD ?? [facility] ?? [address] ?? [place] [address] ?? [phone] ?? NEIL BERNARD NP ?? [facility] ?? [address] [facility] [address] ?? [place] [address] ?? [phone] ----- ------- Signed (signature on file) Joe Fish MD 01/11/25 0936 ? ----- ------- ? END OF REPORT ? us Generic External Data Provider LAB BLOOD ORDERAB LES Final Result Performing Organization Address [facility] Co de Phone Number [facility] [address] [place] [address] [phone] * (ABNORMAL) Glucose, Whole Blood (01/09/2025 9:31 AM EST) [facility] Glucose, Whole Blood 120(H) 60 - 115 mg/dL [facility] Comment:METER #: [id number] 01/09/2025 9:31 AM EST 01/09/2025 9:39 AM EST Generic External Data Provider LAB BLOOD ORDERAB LES Final Result Performing Organization Address [facility] Co de Phone Number [facility] [address] [place] [address] [phone] * Hm Colonoscopy (01/09/2025 8:51 AM EST) Historical Provider HEALTH MAINTENANCE Final Result * VASC US Carotid Artery Duplex Bilateral (12/27/2024 10:39 AM EST) 12/27/2024 10:3 9 AM EST Narrative [facility] - 12/27/2024 10:40 AM EST ? [facility] ?[address] ?[place] [address] ? Ultrasound Report ? Signed ? Patient: Louis,Joelle I ?MR#: [id number] ?? [id number] ? : 1960 ?Acct:[id number] ? Age/Sex: 64 / F ?ADM Date: /19/25 ? Loc: HO.US ? Attending Dr: Rashid Recinos MD ? Ordering Physician: Rashid Recinos MD ?? Date of Service: 12/26/24 ?? Procedure(s): US carotid duplex BI ?? Accession Number(s): [id number] ? cc: NEIL BERNARD NP; Rashid Recinos [...] DD/ 1039 ? TD/TT: 12/27/24 1039 ? Light Bulb Replacer: ? Procedure Note Opal Turpin - 12/27/2024 [place] [address] Ultrasound Report Signed Patient: Joelle Myers IMR#: [id number] : 1Acct:[id number] Age/Sex: 64 / FADM Date: 12/26/24 Loc: HO.US Attending Dr: Rashid Recinos MD Ordering Physician: Rashid Recinos MD Date of Service: 12/26/24 Procedure(s): US carotid duplex BI Accession Number(s): [id number] cc: NEIL BERNARD NP; Rashid Recinos MD CLINICAL HISTORY: I65.23 - [...] 12/27/24 1039 DD/ 1039 TD/TT: 12/27/24 1039 Light Bulb Replacer: [facility] External Provider CV VASC ULAR PROCEDURES Final Result Performing Organization Address [facility] Co de Phone Number [facility] [address] [place] [phone] * Hepatic Function Panel (12/17/2024 6:58 AM EST) Bilirubin, Total 0.4 0.0 - 1.0 mg/dL [facility] Bilirubin, Direct 0.1 0.0 - 0.5 mg/dL [facility] Aspartate Amino Transferase 20 5 - 31 U/L [facility] Alanine Aminotransferase 17 0 - 31 U/L [facility] Total Protein 6.9 6.5 - 8.0 g/dL [facility] Albumin Level 4.2 3.5 - 5.0 g/dL [facility] Alkaline Phosphatase 84 39 - 117 U/L [facility] 12/17/2024 6:58 AM EST 12/17/2024 6:58 AM EST [facility] Bernard [facility] LAB BLOOD ORDERABLES Final Resul t Performing Organization Address [facility] Co de Phone Number [facility] [address] [place] [phone] * Lipid Panel, Standard (12/17/2024 6:58 AM EST) Triglycerides 58 <150 mg/dL [facility] Comment:Desirable Triglyceri de: less than 150 mg/dLBorderline High Triglyceride 150-199 mg/dLHigh Triglyceride: 200-499 mg/dLVery High Triglyceride: greater than or equal to 5OO mg/dL Cholesterol 106 <200 mg/dL [facility] Comment:Desirable Cholestero l: less than 200 mg/dLBorderline High Cholesterol: 200-239 mg/dLHigh Cholesterol: greater than 239 mg/dL LDL Cholesterol Calculated 45 <100 mg/dL [facility] Comment:Desirable LDL: less than 100 mg/dLNear Optimal/Above Optimal LDL: 110- 129 mg/dLBorderline High LDL: 130-159 mg/dLHigh LDL: 160-189 mg/dLVery High LDL: greater than or equal to 190 mg/dL HDL Cholesterol 50 >40 mg/dL [facility] Comment:Desirable HDL: great er than 40 mg/dL Note: This HDL assay may give artificially low results in patients with liver disease. 12/17/2024 6:58 AM EST 12/17/2024 6:58 AM EST Neil Bernard [facility] LAB BLOOD ORDERABLES Final Resul t [facility] [address] [place] [address] [phone] * Albumin, Random Urine W/Creatinine (10/12/2024 9:52 AM EST) Creatinine, Urine 41.64 mg/dL [facility] Microalbumin Urine 6.0 mg/L [facility] Microalbum Creatinine Ratio Ur 14.4 <30 ug/mg cr [facility] Comment:Albumin/Creatinine R atio Reference Ranges: Normal: < 30 ug/mg creatinine Microalbuminuria: 30 - 300 ug/mg creatinineClinical Albuminuria: > 300 ug/mg creatinine Urine (Urine, Random) 10/12/2024 9:52 AM EST 10/12/2024 10:49 AM EST us Neil Bernard ANP LAB URINE ORDERABLES Final Resul t [facility] [address] [place] [phone] * BI Mammogram Screening Tomosynthesis Bilateral (06/06/2024 1:12 PM EDT) Anatomical Region Laterality Modality Breast Bilateral Mammography 06/06/2024 1:12 PM EDT Narrative 06/13/2024 11:28 AM EDT ? [facility] [place] ? [address] ?[place] [address] ? Mammography Report ? Signed ? Patient: LouisJolele Oneil ?MR#: [id number] ?? [id number] ? : 1960 ?Acct:[id number] ? Age/Sex: 63 / F ?ADM Date: 06/06/24 ? Loc: HO.MAMMO ? Attending Dr: Neil Bernard ELECTRICAL TIMING DEVICE CALIBRATOR ? Ordering Physician: NEIL BERNARD NP ?Results: 1Negative ? Date of Service: 06/06/24 ?Follow Up: 1 Year From Orig ?? inal Mammogram ? Procedure(s): MM tomosynthesis screening BI ?? Accession Number(s): [id number] ? cc: JOANA,NEIL ARMENDARIZ ? EXAMINATION: ?? MM SCREENING DIGITAL BREAST [...] 1124 ? DD/ 1312 ? TD/TT: ? Light Bulb Replacer: ? Procedure Note Papi, Image - 06/13/2024 [facility] [address] [place] [address] Mammography Report Signed Patient: Joelle Myers IMR#: [id number] : 1Acct:[id number] Age/Sex: 63 / FADM Date: 06/06/24 Loc: [place] Attending Dr: Neil Bernard NP Ordering Physician: NEIL BERNARDesults: 1Negative Date of Service: 06/06/24Follow Up: 1 Year From Orig inal Mammogram Procedure(s): MM tomosynthesis screening BI Accession Number(s): [id number] cc: NEIL BERNARD NP EXAMINATION: MM SCREENING [...] in OV> 06/13/24 1124 DD/ 1312 TD/TT: Light Bulb Replacer: Neil Bernard ANP IMG BI PROCEDURES Final Result from Last 3 Months or Most Recently Relevant to Health Maintenance Insurance [facility] C3 DENTAL-[facility] MEDICAID STAND ADULT Care Teams Legislative Correspondent Relationship Specialty Start Date End Date Neil Bernard ANP [address] [place] [address] PCP - General Family Medicine 07/07/20 Vaishali Minor PharmD [address] [place] [address] Pharmacist Internal Medicine 10/29/24
--- OUTSIDE RECORDS SUMMARY | 2025-02-19 16:51 | XMS_ITS | Encounter Summary ---
Author Organization [employer] Address [address] [facility] 7t [place] [address] Care Team Providers Care Haul Truck Driver Name Role Phone Sepideh Hopkins JAVI Primary Care Provider [phone] Vaishali Minor PharmD Unavailable [phone] Encounter Details Date Type Department Care Team (Late st Contact Info) Description 01/10/2025 Orders Only [facility] MED & PEDS [address] [place], [place] [phone] ProviderJan MD Social History Tobacco Use Types Packs/Day Years [...] Description 02/20/2025 10:00 AM EDT Office Visit [facility] ADULT DENTAL [address] [place] [address] Everett Angeles, YENI [address] [place] [address] 03/05/2025 3:30 PM EDT Office Visit [facility] ADULT DENTAL [address] [place] [address] Juarez Damon, CHRIS [address] [place] [address] 03/12/2025 11:00 AM EDT Medication Management [facility] MEDICINE [address] [place] [address] Vaishali Minor, PharmD [address] [place] [address] 03/15/2025 10:30 AM EDT Office Visit [facility] ADULT DENTAL [address] [place] [address] Everett Angeles, DMD [address] [place] [address] 05/20/2025 1:00 PM EDT Office Visit [facility] ADULT DENTAL [address] [place] [address] Linsey Dawkins 05/31/2025 1:00 PM EDT Office Visit [facility] MEDICINE [address] [place] [address] Sepideh Hopkins ANP [address] [place] [address] documented as of this encounter Procedures Procedure Name Priority Date/Time Associated Diagnosis Comments HM COLONOSCOPY Routine 01/09/2025 8:51 AM EST documented in this encounter Results * Hm Colonoscopy (01/09/2025 8:51 AM EST) us Historical Provider HEALTH MAINTENANCE Final Result documented in this encounter Visit Diagnoses Not on filedocumented in this encounter Additional Health Concerns Assessment Noted Time PHQ-9 Depression Total Score: 5 11/23/19 25 1:05 PM EST documented as of this encounter Care Teams Haul Truck Driver Relationship Specialty Start Date End Date Sepideh Hopkins ANP [address] [place] [address] PCP - General Family Medicine 07/07/20 Vaishali Minor PharmD [address] [place] [address] Pharmacist Internal Medicine 10/29/24 documented as of this encounter
--- OUTSIDE RECORDS SUMMARY | 2025-02-19 16:51 | XMS_ITS | Clinical Summary ---
Author Organization [facility] Facility Address [address] [place] [address] Care Team Providers Care Founding Partner Name Role Phone Karlos Adame [facility] Primary Care Provider Family History Medical [...] Colorectal Cancer Screening: Sigmoidoscopy 2010 Pneumococcal Vaccine: 50+ Ye ars (2 of 2 - PCV) 03/24/2015 03/24/2014 Diabetes: Hemoglobin A1C 01/28/2020 10/19/2017 Diabetes: Ophthalmology Exam 01/28/2020 Diabetes: Pedal Pulse Checked 01/28/2020 Diabetes: Sensory Foot Exam 01/28/2020 Diabetes: Visual Foot Exam 01/28/2020 Influenza Vaccine (Season Ended) 2025 08/24/20 15 Pneumococcal Vaccine: Peds ( 0 to 5 Years) and At-Risk Patients (6 to 49 Years) Discontinued 03/24/2014 Hepatitis B Vaccine Aged Out No longe r eligible based on patient's age to complete this topic Procedures Procedure Name Priority Date/Time Associated Diagnosis Comments LAB ADHESION TESTER Routine 10/19/2017 12:00 AM EST from Last 3 Months or Most Recently Relevant to Health Maintenance Results * Lab Cloth Cutter (10/19/2017 12:00 AM EST) Hemoglobin A1C 5.9 % [facility] 10/19/2017 [facility] Conversion LAB [id number] LICITED RESULTS Final Result [facility] from Last 3 Months or Most Recently Relevant to Health Maintenance Insurance Medicaid [place] Care Teams Founding Partner Relationship Specialty Start Date End Date Karlos Adame FNP [address] [place] [address], [address]rd [place] [address] PCP - General 11/17/20
--- OUTSIDE RECORDS SUMMARY | 2025-02-19 16:51 | XMS_ITS | Encounter Summary ---
Author Organization [employer] Address [address] [facility] 7t [place] [address] Care Team Providers Care Chef Broiler Or Fry Name Role Phone Sepideh Hopkins Primary Care Provider [phone] Vaishali Minor PharmD Unavailable [phone] Encounter Details Date Type Department Care Team (Late st Contact Info) Description 02/19/2025 Orders Only [facility] MEDICINE [address] [place] [address] Sepideh Hopkins ANP [address] [place] [address] Social History Tobacco Use Types Packs/Day Years [...] Description 02/20/2025 10:00 AM EDT Office Visit [facility] ADULT DENTAL [address] [place] [address] Everett Angeles, YENI [address] [place] [address] 03/05/2025 3:30 PM EDT Office Visit [facility] ADULT DENTAL [address] [place] [address] Juarez Damon DDS [address] [place] [address] 03/12/2025 11:00 AM EDT Medication Management [facility] MED[facility]INE [address] [place] [address] Vaishali Minor, PharmD [address] [place] [address] 03/15/2025 10:30 AM EDT Office Visit [facility] ADULT DENTAL [address] [place] [address] Everett Angeles, DMD [address] [place] [address] 05/20/2025 1:00 PM EDT Office Visit [facility] ADULT DENTAL [address] [place] [address] Linsey Dawkins 05/31/2025 1:00 PM EDT Office Visit [facility] MEDICINE [address] [place] [address] Sepideh Hopkins ANP [address] [place] [address] documented as of this encounter Procedures Procedure Name Priority Date/Time Associated Diagnosis Comments BASIC METABOLIC PANEL Routine 02/19/2025 1:44 PM EDT documented in this encounter Results * (ABNORMAL) Basic Metabolic Panel (02/19/2025 1:44 PM EDT) Sodium 140 135 - 145 mmol/L [facility] Potassium 4.2 3.3 - 5.1 mmol/L [facility] Chloride 109(H) 96 - 108 mmol/L [facility] Carbon Dioxide 24 22 - 29 mmol/L [facility] Anion Gap 11(L) 12 - 20 [facility] Urea Nitrogen (BUN) 22(H) 9 - 16 mg/dL [facility] Creatinine, Serum 1.17 0.5 - 1.4 mg/dL [facility] Estimated Glomerular Filt Rate 47 [facility] Comment:Chronic Kidney Disea se: Estimated GFR < 60 mL/min/1.52q6Gwtkkp Kidney Disease: Estimated GFR < 15 mL/min/1.73m2 Glucose 115 60 - 115 mg/dL [facility] Calcium 10.1 8.4 - 10.2 mg/dL [facility] 02/19/2025 1:44 PM EDT 02/19/2025 4:10 PM EDT Sepideh Hopkins ANP LAB BLOOD ORDERABLES Final Resul t [facility] [address] [place] [address] [phone] documented in this encounter Visit Diagnoses Not on filedocumented in this encounter Additional Health Concerns Assessment Noted Time PHQ-9 Depression Total Score: 5 11/23/19 25 1:05 PM EST documented as of this encounter Care Teams Chef Broiler Or Fry Relationship Specialty Start Date End Date Sepideh Hopkins ANP [address] [place] [address] PCP - General Family Medicine 07/07/20 Vaishali Minor PharmD [address] [place] [address] Pharmacist Internal Medicine 10/29/24 documented as of this encounter
--- OUTSIDE RECORDS SUMMARY | 2025-02-19 16:51 | XMS_ITS | Encounter Summary ---
Author Organization [employer] Address [address] [facility] 7t [place] [address] Care Team Providers Care Handcrew Foreman Name Role Phone Sepideh Hopkins JAVI Primary Care Provider [phone] Vaishali Minor PharmD Unavailable [phone] Reason for Visit * Reason Onset Date Comments CHART PREP 02/18/2025 Encounter Details Date Type Department Care Team ([facility] st Contact Info) Description 02/18/[address] [facility] [address] [place], [place] [phone] Aryan Mai MA CHART PREP Social History Tobacco Use Types Packs/Day Years [...] encounter Miscellaneous Notes * Telephone Encounter - Aryan Mai [place] - 02/18/2025 3:49 PM EDT .Chart Prep Labs: done Images: not applicable Referrals: appointment pending Vaccines due: no updates Screenings: PAP, HIV SCREENING Overdue care gaps: A1c, Glucose, and Disability screen documented in this encounter Plan of Treatment Upcoming Encounters Date Type Department Care Team (Late st Contact Info) Description 02/20/2025 10:00 AM EDT Office Visit [facility] ADULT DENTAL [address] [place] [address] Everett Angeles, YENI [address] [place] [address] 03/05/2025 3:30 PM EDT Office Visit [facility] ADULT DENTAL [address] [place] [address] Juarez Damon DDS [address] [place] [address] 03/12/2025 11:00 AM EDT Medication Management [facility] [address] [place] [address] Vaishali Minor PharmD [address] [place] [address] 03/15/2025 10:30 AM EDT Office Visit [facility] ADULT DENTAL [address] [place] [address] Everett Angeles, YENI [address] [place] [address] 05/20/2025 1:00 PM EDT Office Visit [facility] ADULT DENTAL [address] [place] [address] Linsey Dawkins 05/31/2025 1:00 PM EDT Office Visit [facility] MED[facility] [address] [place] [address] Sepideh Hopkins ANP [address] [place] [address] documented as of this encounter Visit Diagnoses Not on filedocumented in this encounter Additional Health Concerns Assessment Noted Time PHQ-9 Depression Total Score: 5 11/23/19 25 1:05 PM EST documented as of this encounter Care Teams Handcrew Foreman Relationship Specialty Start Date End Date Sepideh Hopkins ANP [address] [place] [address] PCP - General Family Medicine 07/07/20 Vaishali Minor PharmD [address] [place] [address] Pharmacist Internal Medicine 10/29/24 documented as of this encounter
[2025-02-20 10:07] LABS: Bacterial Vaginosis PCR NEGATIVE (Negative); Candida Group PCR DETECTED (Not Detect); Candida glab krusei PCR NOT DETECTED (Not Detect); Trichomonas vaginalis PCR NOT DETECTED (Not Detect)
== END 2025-02-19 13:44 | disposition home or self-care (01) ==
LOC: HO.HHCL 13:43
PROVIDERS: Visit Provider Nurse Practitioner Primary Care
DX: E11.65 Type 2 diabetes mellitus with hyperglycemia (principal); R30.0 Dysuria
CPT/HCPCS: 36415; 80048; 81515

== ENCOUNTER 2025-03-29 10:03 | Outpatient (REF) | payer MEDICAID, SELFPAY ==
--- NOTE | ~2025-03-29 | US_ITS ---
CLINICAL HISTORY: R10.9 - Unspecified abdominal pain US abdomen complete Comparison: 06/19/2024 11:55 AM EDT: US 01/12/2024 08:08 AM EST: US Findings: The visualized pancreas is normal. The aorta and inferior vena cava are normal caliber. The appearance of the liver suggests fatty infiltration without focal lesion. There is no intrahepatic bile duct dilatation. The common duct is 2.0 mm in diameter. The gallbladder is normal. There is no sonographic Gordon sign. The main portal vein is antegrade. The right kidney is 9.5 cm in length. The left kidney is 9.7 cm in length. The spleen is normal. No ascites. IMPRESSION: 1. Hepatic steatosis. This document has been electronically signed by: Tino Islas MD on 03/29/2025 18:12:35
--- OUTSIDE RECORDS SUMMARY | 2025-03-29 10:17 | XMS_ITS | Encounter Summary ---
Author Organization [employer] Address [address] [facility] 7t [place] [address] Care Team Providers Care Lift Truck Operator Name Role Phone Sepideh Hopkins Primary Care Provider [phone] Vaishali Minor PharmD Unavailable Encounter Details Date Type Department Care Team (Latest Contact Info) Description 07/23/2022 Abstract [facility] CONVERSIONS Dental, Provider, DDS Social History Tobacco [...] Care Team (Late st Contact Info) Description 04/05/2025 11:00 AM EDT Clinical Support [facility] MEDICINE [address] [place] [address] Shanelle Miller RN [address] [place] [address] 04/19/2025 11:00 AM EDT Medication Management [facility] MEDICINE [address] [place] [address] Vaishali Minor, PharmD [address] [place] [address] 05/20/2025 1:00 PM EDT Office Visit [facility] ADULT DENTAL [address] [place] [address] Raysa Sneed [address] [place] [address] 05/31/2025 1:00 PM EDT Office Visit [facility] MEDICINE [address] [place], [place] [phone] Sepideh Hopkins ANP [address] [place] [address] documented as of this encounter Visit Diagnoses Not on filedocumented in this encounter Care Teams Lift Truck Operator Relationship Specialty Start Date End Date Sepideh Hopkins ANP [address] [place] [address] PCP - General Family Medicine 07/07/20 Vaishali Minor, Leonidas [address] [place] [address] Pharmacist Internal Medicine 10/29/24 documented as of this encounter
== END 2025-03-29 10:04 | disposition home or self-care (01) ==
LOC: HO.US 10:03
PROVIDERS: PCP Nurse Practitioner Primary Care; Visit Provider Nurse Practitioner Family
DX: R10.9 Unspecified abdominal pain (principal)
CPT/HCPCS: 76700

== ENCOUNTER → 2025-03-29 10:05 | Outpatient (BNV) | payer MEDICAID, SELFPAY | PROVIDERS: PCP Nurse Practitioner Primary Care; Visit Provider Specialist | DX: K76.0 Fatty (change of) liver, not elsewhere classified (principal) | CPT/HCPCS: 76700 ==

== ENCOUNTER 2025-05-14 11:28 | Outpatient (AMB) | payer MEDICAID, SELFPAY ==
[2025-05-14 11:48] VITALS: BP 113/74; PULSE 87; BMI 27.1
--- NOTE | 2025-05-14 11:48 | A.OFFVIS_ITS ---
Vital Signs 05/14/25 11:48 Height 5 ft 1 in Weight 143 lb 4.807 oz BMI 27.1 BP 113/74 Blood Pressure Location Lt brachial Position Sitting Pulse 87 Intake Visit Reasons: 4m Intake Note: Joelle presents in the office as a 4 month follow up. CC: She states that sometimes she has some sick to her stomach feelings. Denies irregular bowel movements and any N/V. Consumer Loan Officer Required: Yes Consumer Loan Officer Name: Akilah [id number] Allergies No Known Allergies Allergy (Verified 05/14/25 11:49) HPI HPI 4m: Details: LAST VISIT: Gastroparesis GERD (gastroesophageal reflux disease) Constipation Elevated LFTs Abdominal pain Postprandial abdominal bloating Plan Continue Nexium in the morning and famotidine at bedtime. Avoid dietary triggers and late night snacking. Staying upright for minimum 3 hours after meals discussed with patient.. Colonoscopy will be repeated in 1 year due to suboptimal prep. One tubular adenoma seen in sigmoid colon and 1 hyperplastic polyp in the rectum. Patient is not emptying her bowels, constipation on going. Patient will start taking Senokot 2 tablets daily. Increase fluid intake and activity to promote better bowel motility. Patient will follow-up in 3-4 months, sooner on as needed basis. She is agreeable to this plan and verbalizes understanding of instructions. She was given the opportunity to ask questions and all questions answered. ? Thank you for allowing me to participate in her care Orders US abdomen complete Today R10.9 New sennosides (Natural Senna Laxative) 17.2 mg (2 x 8.6 mg) PO BEDTIME 180 tabs 3RF constipation K59.00 TODAY'S VISIT: Patient is here today for follow-up and to discuss ultrasound results. Patient had normal ultrasound, hepatic steatosis noted. Negative for any acute processes. Patient reports to be feeling better. Is able to move her bowels now with senna. Takes senna every other day. Patient is on Ozempic and reports that few days after she will have epigastric pain and bloating. She is taking Reglan with meals and reports helpful. Patient is taking Nexium in the morning and famotidine at bedtime. Reports eating about 2 meals per day. Usually her evening meal is a large meal of the day. Patient mainly is eating Frisian food like rice and beans, chicken. Patient denies any nausea or vomiting. Denies any dyspepsia, dysphagia or odynophagia. Denies melena, hematochezia. 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 Mother Hx of colon cancer, stage I Hx of diabetes insipidus Social History Household Members: None Housing: Apartment Are you a primary medicare insurance specialist to a significant other at home: No Do you presently have visiting nurse or other home services: No 75 years or older and lives alone: No Alcohol intake: never Patient Tobacco Use Status: Former Tobacco user Tobacco use type: Cigarette Years Smoked: (onset 19yo, 1ppd x 42yrs, 40pyh - quit 2021) Review of Systems Const Denies weight gain and Denies weight loss ENT Reports no additional complaints, Denies dysphagia and Denies odynophagia Card Reports no additional complaints Resp Reports no additional complaints GI Reports abdominal pain (Upper), Denies belching, Denies melena, Reports bloating, Denies change in bowel habits, Reports constipation, Denies dysphagia, Denies excessive flatus, Denies dyspepsia, Reports heartburn (Occasional), Denies diarrhea, Denies loose stools, Denies nausea, Denies odynophagia and Denies vomiting Reports no additional complaints Musc Reports no additional complaints Neuro Reports no additional complaints Psych Reports no additional complaints Endo Reports no additional complaints Physical Exam Vital Signs: Last Vital Signs Pulse 87 05/14/25 11:48 BP 113/74 05/14/25 11:48 BMI result Body Mass Index 27.1 Const General: healthy appearing, no acute distress and well developed Nutritional Appearance: obese Orientation/consciousness: patient oriented x3 Resp Effort & Inspection: normal respiratory effort, able to speak in complete sentences, no tracheal deviation and symmetric chest movement Auscultation: clear to auscultation bilaterally Cardio Rate: regular rate GI Inspection: Yes normal to inspection, No distended and Yes obesity Palpation (GI): Soft to palpation, not firm, nontender and No hepatosplenomegaly present Auscultation: normal bowel sounds General: Yes no CVA tenderness Back/Spine/Pelvis Back: no CVA tenderness Skin General skin exam: elasticity normal, turgor normal and dry skin Neuro General: patient oriented x3 Psych Appearance: grossly normal Mental Status: mental status grossly normal Results Reviewed Results Reviewed: ABDOMINAL ULTRASOUND Findings: The visualized pancreas is normal. The aorta and inferior vena cava are normal caliber. The appearance of the liver suggests fatty infiltration without focal lesion. There is no intrahepatic bile duct dilatation. The common duct is 2.0 mm in diameter. The gallbladder is normal. There is no sonographic Gordon sign. The main portal vein is antegrade. The right kidney is 9.5 cm in length. The left kidney is 9.7 cm in length. The spleen is normal. No ascites. IMPRESSION: 1. Hepatic steatosis. Assessment & Plan Assessment & Plan (1) GERD (gastroesophageal reflux disease): Code(s): K21.9 - Gastro-esophageal reflux disease without esophagitis Category: Medical Qualifiers: Esophagitis presence: esophagitis presence not specified Qualified Code(s): K21.9 - Gastro-esophageal reflux disease without esophagitis (2) Gastroparesis: Code(s): K31.84 - Gastroparesis Category: Medical (3) Elevated LFTs: Code(s): R79.89 - Other specified abnormal findings of blood chemistry Category: Medical (4) Constipation: Code(s): K59.00 - Constipation, unspecified Category: Medical Qualifiers: Constipation type: chronic idiopathic constipation Qualified Code(s): K59.04 - Chronic idiopathic constipation (5) Postprandial epigastric pain: Code(s): R10.13 - Epigastric pain (6) Postprandial abdominal bloating: Code(s): R14.0 - Abdominal distension (gaseous) Plan Patient will continue current therapy with PPI and H2 prosper. Continue Reglan with meals. Patient was encouraged to eat smaller meals and more often as eating large meal while she is taking Ozempic my cause her epigastric pain. Avoid dietary triggers and late night snacking. Staying upright for minimum 3 hours after meals discussed with patient. Continue senna. Increase fluid intake and activity to promote better bowel motility. Patient will follow-up in 3-4 months, sooner on as needed basis. She is agreeable to this plan and verbalizes understanding of instructions. She was given the opportunity to ask questions and all questions answered. Thank you for allowing me to participate in her care Medications: Refilled esomeprazole magnesium (Nexium) 40 mg PO DAILY 90 caps 2RF K21.9 - Gastro- esophageal reflux disease without esophagitis famotidine 40 mg PO BEDTIME 90 tabs 3RF K21.9 - Gastro-esophageal reflux disease without esophagitis Coding Level of Care Code Est Pt Level 4 (05538) Complex EM visit Add On G2211 Diagnoses Gastroesophageal reflux disease, unspecified whether esophagitis present K21.9 Esophagitis presence: esophagitis presence not specified Gastroparesis K31.84 Elevated LFTs R79.89 Chronic idiopathic constipation K59.04 Constipation type: chronic idiopathic constipation Postprandial epigastric pain R10.13 Postprandial abdominal bloating R14.0 Time Spent (min) 35 Comment 25 minutes spent with patient and additional 10 minutes spent reviewing her records
--- OUTSIDE RECORDS SUMMARY | 2025-05-14 12:34 | XMS_ITS | Encounter Summary ---
Author Organization [facility] [facility] Address [address] [facility] [facility] 7t [place] [address] Care Team Providers Care Greenhouse Or Nursery Transplanter Name Role Phone Sepideh Hopkins Primary Care Provider [phone] Vaishali Minor PharmD Unavailable Encounter Details Date Type Department Care Team (Latest Contact Info) Description 07/23/2022 Abstract [facility] CONVERSIONS Dental, Provider, DDS Social History Tobacco [...] Care Team (Late st Contact Info) Description 05/14/2025 2:30 PM EDT Office Visit [facility] ADULT DENTAL [address] [place] [address] Everett Angeles, DMD [address] [place] [address] 05/15/2025 10:30 AM EDT Medication Management [facility] MEDICINE [address] [place] [phone] Vaisahli Minor, PharmD [address] [place] [address] 05/17/2025 11:30 AM EDT Clinical Support [facility] MEDICINE [address] [place] [address] Shanelle Miller, MENDEL [address] [place] [address] 05/20/2025 1:00 PM EDT Office Visit [facility] ADULT DENTAL [address] [place] [address] Raysa Sneed [address] [place] [address] 05/31/2025 1:00 PM EDT Office Visit [facility] MEDICINE [address] [place] [address] Sepideh Hopkins ANP [address] [place] [address] documented as of this encounter Visit Diagnoses Not on filedocumented in this encounter Care Teams Greenhouse Or Nursery Transplanter Relationship Specialty Start Date End Date Sepideh Hopkins ANP [address] [place] [id number] PCP - General Family Medicine 07/07/20 Vaishali Minor, IrwinD [address] [place] [address] Pharmacist Internal Medicine 10/29/24 documented as of this encounter
--- OUTSIDE RECORDS SUMMARY | 2025-05-14 12:34 | XMS_ITS | Clinical Summary ---
Author Organization [facility] Facility Address [address] [place] [address] Care Team Providers Care Youth Ministry Director Name Role Phone Karlos Adame [facility] Primary Care Provider Family History Medical [...] Visual Foot Exam 01/28/2020 Influenza Vaccine (#1) 2025 08/24/2015 Pneumococcal Vaccine: Peds ( 0 to 5 Years) and At-Risk Patients (6 to 49 Years) Discontinued 03/24/2014 Hepatitis B Vaccine Aged Out No longe r eligible based on patient's age to complete this topic Procedures Procedure Name Priority Date/Time Associated Diagnosis Comments LAB RADIO INSTALLER Routine 10/19/2017 12:00 AM EST from Last 3 Months or Most Recently Relevant to Health Maintenance Results * Lab Senior Sql Developer (10/19/2017 12:00 AM EST) Hemoglobin A1C 5.9 % [facility] 10/19/2017 [facility] Conversion LAB [id number] LICITED RESULTS Final Result [facility] from Last 3 Months or Most Recently Relevant to Health Maintenance Insurance Medicaid [place] Care Teams Youth Ministry Director Relationship Specialty Start Date End Date Karlos Adame FNP [address] [place] [address], [address] [place] [address] PCP - General 11/17/20
== END 2025-05-14 12:14 | disposition home or self-care (01) ==
LOC: HO.HGI 11:30
PROVIDERS: PCP Nurse Practitioner Primary Care; Visit Provider Nurse Practitioner Family
DX: K21.9 Gastro-esophageal reflux disease without esophagitis (principal); K31.84 Gastroparesis; R79.89 Other specified abnormal findings of blood chemistry; K59.04 Chronic idiopathic constipation; R10.13 Epigastric pain; R14.0 Abdominal distension (gaseous)
CPT/HCPCS: 99214

== ENCOUNTER → 2025-05-14 11:28 | Outpatient (BNVA) | payer MEDICAID, SELFPAY | PROVIDERS: PCP Nurse Practitioner Primary Care; Visit Provider Nurse Practitioner Family | DX: K21.9 Gastro-esophageal reflux disease without esophagitis (principal); R10.13 Epigastric pain; R14.0 Abdominal distension (gaseous); R79.89 Other specified abnormal findings of blood chemistry; K31.84 Gastroparesis | CPT/HCPCS: 99212 ==

== ENCOUNTER 2025-06-03 12:55 | Outpatient (REF) | payer MEDICAID, SELFPAY ==
--- NOTE | ~2025-06-03 | CT_ITS ---
CLINICAL HISTORY: Z87.891 - Personal history of nicotine dependence CT lung cancer screening Technique: Axial CT images of the chest using low-dose technique. Effective radiation dose: DLP 28.0 mGy. Cm, CTDIvol 1.08 mGy Referring provider counseled the patient on shared decision-making for LDCT screening. Additional counseling was provided on smoking cessation. Comparison: CR/SR - XR CHEST 1 VIEW - 09/17/24 15:[address]/NC/SR - CT LUNG SCREENING - 05/30/24 13:[address]/NC/SR - CT LUNG SCREENING - 05/04/24 12:02 EDT Findings: Lung nodules RUL: 2 mm nodule image 22 previously 3 mm RML: None RLL: None SARAH: Stable 3 mm nodule posteriorly image 32 Lingula: Resolving discoid atelectasis inferior lingula image 97. LLL: None COPD: Mild emphysematous changes. Pleural spaces: Normal. Coronary artery calcifications: Mild with coronary artery stent. Limited upper abdomen: Unremarkable. Other: None. Impression: LungRADS 2 - Benign Appearance: Continue annual screening with low dose Chest CT in 12 months. ##L2## ACR LungRADS Categories Category 1: Normal; continue annual screening Category 2: Benign appearance or behavior, continue annual screening Category 3: Probably benign, [address] recommended Category 4A: Suspicious, [address] recommended; may consider PET/CT Category 4B: Suspicious, Additional diagnostics and/or tissue sampling recommended Category 4X: Suspicious, Additional diagnostics and/or tissue sampling Category 0: Recalls (incomplete screen due to Incomplete coverage, Noise, Respiratory motion, Expiration, Obscured by acute abnormality) This document has been electronically signed by: Kb Tirado MD on 06/04/2025 16:30:20
--- OUTSIDE RECORDS SUMMARY | 2025-06-03 13:36 | XMS_ITS | Clinical Summary ---
Author Organization [facility] Facility Address [address] [place] [address] Care Team Providers Care Early Childhood Educator Aide Name Role Phone Karlos Adame [facility] Primary Care Provider Family History Medical History [...] Name Priority Date/Time Associated Diagnosis Comments LAB HAND CEMENTER Routine 10/19/2017 12:00 AM EST from Last 3 Months or Most Recently Relevant to Health Maintenance Results * Lab Information Technology Specialist (10/19/2017 12:00 AM EST) Hemoglobin A1C 5.9 % [facility] 10/19/2017 [facility] Conversion LAB [id number] LICITED RESULTS Final Result [facility] from Last 3 Months or Most Recently Relevant to Health Maintenance Insurance Medicaid [place] Care Teams Early Childhood Educator Aide Relationship Specialty Start Date End Date Karlos Adame FNP [address] [place] [address], [address]rd [place] [address] PCP - General 11/17/20
--- OUTSIDE RECORDS SUMMARY | 2025-06-03 13:36 | XMS_ITS | Encounter Summary ---
Author Organization [employer] Address [address] [facility] 7[address] [place] [address] Care Team Providers Care Technical Account Executive Name Role Phone Sepideh Hopkins Primary Care Provider [phone] Vaishali Minor PharmD Unavailable Encounter Details Date Type Department Care Team (Latest Contact Info) Description 07/23/2022 Abstract [facility] CONVERSIONS Dental, Provider, DDS Social [...] Care Team (Late st Contact Info) Description 06/17/2025 11:00 AM EDT Medication Management [facility] MEDICINE [address] [place] [address] Vaishali Minor, PharmD [address] [place] [address] 06/21/2025 11:00 AM EDT Office Visit [facility] ADULT DENTAL [address] [place] [address] Everett Angeles, YENI [address] [place] [address] 08/30/2025 10:30 AM EDT Clinical Support [facility] MEDICINE [address] [place] [address] Shanelle Miller, MENDEL [address] [place] [address] 11/06/2025 8:00 AM EST Office Visit [facility] ADULT DENTAL [address] [place] [address] Cher Alex [address] [place] [address] documented as of this encounter Visit Diagnoses Not on filedocumented in this encounter Care Teams Technical Account Executive Relationship Specialty Start Date End Date Sepideh Hopkins ANP [address] [place] [address] PCP - General Family Medicine 07/07/20 Vaishali Minor PharmD [address] [place] [address] Pharmacist Internal Medicine 10/29/24 documented as of this encounter
== END 2025-06-03 12:56 | disposition home or self-care (01) ==
LOC: HO.CT 12:55
PROVIDERS: PCP Nurse Practitioner Primary Care; Visit Provider Physician Assistant Medical
DX: Z12.2 Encounter for screening for malignant neoplasm of respiratory organs (principal); Z87.891 Personal history of nicotine dependence
CPT/HCPCS: 71271

== ENCOUNTER → 2025-06-03 12:57 | Outpatient (BNV) | payer MEDICAID, SELFPAY | PROVIDERS: PCP Nurse Practitioner Primary Care; Visit Provider Radiology Diagnostic Radiology | DX: Z12.2 Encounter for screening for malignant neoplasm of respiratory organs (principal); Z87.891 Personal history of nicotine dependence | CPT/HCPCS: 71271 ==

== ENCOUNTER 2025-06-11 09:57 | Outpatient (REF) | payer MEDICAID, SELFPAY ==
--- NOTE | ~2025-06-11 | MM_ITS ---
EXAMINATIONS: 1. MM DIAGNOSTIC DIGITAL BREAST TOMOSYNTHESIS, BILATERAL 2. Targeted ultrasound of the left breast CLINICAL INFORMATION: -L breast pain, +h/o breast biopsy x 2 same area 40 year ago -pain in L upper outer quadrant COMPARISON: Comparison made to multiple prior, most recent June 06, 2024, and most remote December 19, 2020. TECHNIQUE: Digital breast tomosynthesis is performed in both the craniocaudal and mediolateral oblique views along with computer-aided detection (CAD). Synthesized 2D images are generated from the tomosynthesis. FINDINGS: BREAST COMPOSITION: The breasts are heterogeneously dense, which may obscure small masses (ACR BI-RADS breast composition Category c). RIGHT BREAST: No significant masses, suspicious calcifications or other abnormalities are seen. LEFT BREAST: Remote history of 2 excisional biopsies. No significant masses, suspicious calcifications or other abnormalities are seen. In particular, no suspicious abnormalities in the upper-outer quadrant. Targeted ultrasound of the left breast was performed at the location of the pain as indicated by the patient. The survey centered from 12:00-2:00 positions from 2 to 12 cm from the nipple did not reveal suspicious mammographic findings. MM/MM tomosynthesis diagnostic BI IMPRESSION: RIGHT BREAST: Negative, no mammographic evidence of malignancy. Normal interval follow-up is recommended in 12 months. LEFT BREAST: Benign, no evidence of malignancy. No abnormal findings to account for patient's concern of focal pain. Clinical follow-up is recommended, otherwise, normal interval follow-up mammogram is recommended in 12 months. ASSESSMENT: BI-RADS 2 - Benign Findings RECOMMENDATION: 1. Patient should be managed based on the clinical impression. 2. Otherwise, routine annual screening mammography. Results were provided to the patient at time of visit by the technologist. This patient's information was entered into a reminder system with a target due date for their next mammogram. Electronically signed by: Lon Otero MD 06/11/2025 10:56 AM EDT
--- OUTSIDE RECORDS SUMMARY | 2025-06-11 10:28 | XMS_ITS | Encounter Summary ---
Author Organization [employer] Address [address] [facility] [address] [place] [address] Care Team Providers Care Director Supply Name Role Phone Sepideh Hopkins Primary Care Provider [phone] Vaishali Minor PharmD Unavailable Encounter Details Date Type Department Care Team (Latest Contact Info) Description 07/23/2022 Abstract [facility] CONVERSIONS Dental, Provider, DDS Social History [...] Description 06/17/2025 11:00 AM EDT Medication Management [facility] MEDICINE [address] [place] [id number] Vaishali Minor, PharmD [address] [place] [address] 06/21/2025 11:00 AM EDT Office Visit [facility] ADULT DENTAL [address] [place] [address] Everett Angeles, YENI [address] [place] [address] 08/30/2025 10:30 AM EDT Clinical Support [facility] MEDICINE [address] [place] [address] Shanelle Miller, MENDEL [address] [place] [address] 11/06/2025 8:00 AM EST Office Visit [facility] ADULT DENTAL [address] [place] [address] Cher Alex [address] [place] [address] documented as of this encounter Visit Diagnoses Not on filedocumented in this encounter Care Teams Director Supply Relationship Specialty Start Date End Date Sepideh Hopkins ANP [address] [place] [address] PCP - General Family Medicine 07/07/20 Vaishali Minor PharmD [address] [place] [address] Pharmacist Internal Medicine 10/29/24 documented as of this encounter
--- OUTSIDE RECORDS SUMMARY | 2025-06-11 10:28 | XMS_ITS | Clinical Summary ---
Author Organization [facility] Facility Address [address] [place] [address] Care Team Providers Care Pastrycook'S Assistant Name Role Phone Karlos Adame [facility] Primary Care Provider Family History [...] Name Priority Date/Time Associated Diagnosis Comments LAB PANEL SAW OPERATOR Routine 10/19/2017 12:00 AM EST from Last 3 Months or Most Recently Relevant to Health Maintenance Results * Lab Ledger Clerk (10/19/2017 12:00 AM EST) Hemoglobin A1C 5.9 % [facility] 10/19/2017 [facility] Conversion LAB [id number] LICITED RESULTS Final Result [facility] from Last 3 Months or Most Recently Relevant to Health Maintenance Insurance Medicaid [place] Care Teams Pastrycook'S Assistant Relationship Specialty Start Date End Date Karlos Adame FNP [address] [place] [address], [address]rd [place] [address] PCP - General 11/17/20
== END 2025-06-11 09:58 | disposition home or self-care (01) ==
LOC: HO.MAMMO 09:57
PROVIDERS: PCP Nurse Practitioner Primary Care; Visit Provider Nurse Practitioner Primary Care
DX: Z12.31 Encounter for screening mammogram for malignant neoplasm of breast (principal); N64.4 Mastodynia
CPT/HCPCS: 76642; 77062; 77066

== ENCOUNTER → 2025-06-11 10:00 | Outpatient (BNV) | payer MEDICAID, SELFPAY | PROVIDERS: PCP Nurse Practitioner Primary Care; Visit Provider Radiology Body Imaging | DX: N64.4 Mastodynia (principal) | CPT/HCPCS: 76642; 77062; 77066 ==

== ENCOUNTER 2025-06-20 10:18 | Outpatient (AMB) | payer MEDICAID, SELFPAY ==
--- NOTE | 2025-06-20 10:35 | A.OFFVIS_ITS ---
Vital Signs 06/20/25 10:36 Height 5 ft 1 in Weight 147 lb 11.355 oz BMI 27.9 BP 100/72 Blood Pressure Location Lt brachial Position Sitting Pulse 85 Pulse Source Monitor Intake Visit Reasons: 6m follow up Business Writer Required: Yes Business Writer Name: YARIEL [id number] Allergies No Known Allergies Allergy (Verified 05/14/25 11:49) Medication List - Last Reconciled 06/20/25 by Rashid Recinos MD acarbose 100 mg PO TID acetaminophen 1,000 mg PO Q6H PRN albuterol sulfate 90 mcg/actuation (ProAir HFA) 2 puffs inhalation Q4-6H PRN albuterol sulfate 1 inhalation Q6H PRN apixaban (Eliquis) 2.5 mg PO Held on 08/02/24. Instructions: Resume on 08/05/24. You may resume 3 days after surgery aspirin 81 mg PO DAILY Held on 08/02/24. Instructions: Resume on 08/09/24. You may resume 1 week after surgery atorvastatin 40 mg PO BEDTIME blood sugar diagnostic (FreeStyle Lite Strips) 4 times a day blood-glucose meter (FreeStyle Lite Meter kit) use as directed TID blood-glucose meter (FreeStyle Altmar Lite kit) To test bg 3x/day budesonide-formoterol 160-4.5 mcg/actuation 2 puffs inhalation BID bupropion HCl SR 100 mg PO QAM cetirizine 10 mg PO QAM chlorhexidine gluconate 0.12% 15 mL PO TID cholecalciferol (vitamin D3) 50 mcg PO QAM dextrose 40% (Glutose-15) PO docusate sodium (Colace) 100 mg PO DAILY esomeprazole magnesium (Nexium) 40 mg PO DAILY famotidine 40 mg PO BEDTIME fenofibrate micronized 134 mg PO DAILY flash glucose sensor (FreeStyle Dagmar 2 Sensor kit) As directed fluticasone propionate 50 mcg/actuation 1 spray intranasal BID FreeStyle Lancets (lancets) 3 times a day NS furosemide 20 mg PO DAILY PRN gabapentin 600 mg PO TID insulin glargine (Lantus Solostar U-100 Insulin) 46 units (0.46 mL) subcut QPM lidocaine 5% patches topical lorazepam 0.5 mg PO BID PRN magnesium oxide 400 mg PO DAILY metformin ER 500 mg PO BID metoclopramide HCl (Reglan) 5 mg PO QIDACHS metoprolol succinate ER (Toprol XL) 25 mg PO BID nitroglycerin 0.4 mg sublingual Q5M PRN pen needle, diabetic (BD Ultra-Fine Sienna Pen Needle) four times a day pioglitazone 30 mg PO QAM polyethylene glycol 3350 (Miralax) 238 grams PO ONCE semaglutide (Ozempic) 2 mg subcut QWEEK sennosides (Natural Senna Laxative) 17.2 mg (2 x 8.6 mg) PO BEDTIME sertraline (Zoloft) 200 mg PO BEDTIME tiotropium bromide (Spiriva with HandiHaler) 1 cap inhalation DAILY tramadol 50 mg PO Q8H PRN zolpidem 10 mg PO BEDTIME PRN HPI Comments Details: Joelle returns for follow-up regarding coronary artery disease. She has a history of CAD and prior LAD stent. By documentation, around 2012. She did have another catheterization in October 2013 for suspected unstable angina. Based on that study, patent mid LAD stent, but otherwise normal coronaries. She has got multiple cardiovascular risk factors including type 2 diabetes, hypertension, dyslipidemia. Overall, she feels fine. No clear-cut symptoms like exertional angina. In the past, she reported dizziness and that is still present. Possible orthostatic but not clear. Discussed with patient using light bulb replacer. 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 Mother Hx of colon cancer, stage I Hx of diabetes insipidus Social History Household Members: None Housing: Apartment Are you a primary animal caregiver to a significant other at home: No Do you presently have visiting nurse or other home services: No 75 years or older and lives alone: No Alcohol intake: never Patient Tobacco Use Status: Former Tobacco user Tobacco use type: Cigarette Years Smoked: (onset 19yo, 1ppd x 42yrs, 40pyh - quit 2021) Review of Systems Const Denies weakness ENT Denies dizziness Card Denies chest pain, Denies chest pain with activity, Denies syncope, Denies rapid heart rate, Denies pedal edema, Denies edema, Denies leg edema, Denies lightheadedness, Denies palpitations, Denies dyspnea, Denies dyspnea on exertion and Denies orthopnea Resp Denies cough, Denies dyspnea and Denies dyspnea on exertion GI Denies hematochezia and Denies change in stool character Musc Denies abnormal gait, Denies muscle cramps, Denies muscle weakness, Denies numbness, Denies radiating pain into limb and Denies tingling Neuro Denies abnormal gait, Denies dizziness, Denies syncope, Denies numbness, Denies tingling and Denies weakness Endo Denies palpitations Physical Exam Vital Signs: Last Vital Signs Pulse 85 06/20/25 10:36 BP 100/72 06/20/25 10:36 BMI result Body Mass Index 27.9 Const General: comfortable and no acute distress Orientation/consciousness: patient oriented x3 HEENT Other: Unremarkable Head: Yes normal to inspection Neck Neck: Yes normal visual inspection Chest Chest palpation & inspection: normal inspection of the chest Resp Auscultation: clear to auscultation bilaterally Cardio Palpation: normal PMI Heart sounds: S1 normal heart sound present, S2 normal heart sound present, no gallops, no murmurs and no rubs GI Palpation (GI): Soft to palpation Back/Spine/Pelvis Other: unremarkable Skin General skin exam: no rashes or lesions noted Neuro General: patient oriented x3 Extrem General: Yes normal to inspection Psych Mental Status: mental status grossly normal Office Procedures EKG Details: EKG with underlying sinus rhythm at 85/Min. Sinus arrhythmias; low-voltage QRS and otherwise unremarkable[place] [id number], Complete Assessment & Plan Assessment & Plan (1) CAD (coronary artery disease): Code(s): I25.10 - Atherosclerotic heart disease of [place] coronary artery without angina pectoris Category: Medical (2) Stented coronary artery: Onset Date: ~2012 Comment: (LAD stent 2012) Code(s): Z95.5 - Presence of coronary angioplasty implant and graft Category: Medical (3) Diabetes type 2, uncontrolled: Onset Date: ~2011 Code(s): E11.65 - Type 2 diabetes mellitus with hyperglycemia Category: Medical (4) Hypertension: Code(s): I10 - Essential (primary) hypertension Category: Medical (5) Dyslipidemia: Code(s): E78.5 - Hyperlipidemia, unspecified Category: Medical Plan Cardiac studies reviewed. Last cardiac catheterization from October 2013 reported to have patent mid LAD stent but otherwise normal coronary arteries. Echocardiogram from 2022 with LVEF of 60-65%. Description of inferoseptal/basal inferior/mid inferior hypokinesis. Otherwise unremarkable- images also reviewed. In the stress test, she was able to perform for 4.6 Mets on the Brandyn protocol. After stopping, she had chest pain but no EKG changes. Then had pharmacological stress test. Overall perfusion imaging showed no ischemic findings. Carotid ultrasound shows no significant stenosis. She continue meds for stable coronary disease. Remains on aspirin and high-dose statins. Last LDL cholesterol 45 mg/dL and triglycerides 58 mg/dL. Diabetic regimen noted. Last random sugar was 115 but prior to that in the 300s to 500s. No recent hemoglobin A1c. For Eliquis, she states it is because of a blood clot in the lungs. In that case, advised to hold off aspirin. With regard to the dizziness, could be orthostatic. We will clarify the beta- prosper dose from pharmacy. Probably cut back or stop. Discussion Notes I discussed with the patient the importance of discontinuing aspirin while on Eliquis to avoid unnecessary medication overlap. We also talked about the critical need to stop smoking to prevent heart attacks and other cardiovascular issues. Patient was informed and verbally consented to the use of an ambient scribe for clinic note documentation during this visit. Patient Instructions: - Stop taking aspirin while continuing Eliquis. - Work on quitting smoking to lower the risk of heart attack. Coding Level of Care Code Est Pt Level 4 (32689) Complex EM visit Add On G2211 Diagnoses CAD (coronary artery disease) I25.10 Stented coronary artery Z95.5 Diabetes type 2, uncontrolled E11.65 Hypertension I10 Dyslipidemia E78.5 CPT Codes EKG - CPT: 12974-[id number], Complete ([id number])
[2025-06-20 10:36] VITALS: BP 100/72; PULSE 85; BMI 27.9
--- OUTSIDE RECORDS SUMMARY | 2025-06-20 11:24 | XMS_ITS | Clinical Summary ---
Author Organization [facility] Facility Address [address] [place] [address] Care Team Providers Care Public Weigher Name Role Phone Karlos Adame [facility] Primary Care Provider Family History Medical [...] Name Priority Date/Time Associated Diagnosis Comments LAB BINGO CASHIER Routine 10/19/2017 12:00 AM EST from Last 3 Months or Most Recently Relevant to Health Maintenance Results * Lab Kaiako Kohanga Reo (10/19/2017 12:00 AM EST) Hemoglobin A1C 5.9 % [facility] 10[facility]2017 [facility] Conversion LAB [id number] LICITED RESULTS Final Result [facility] from Last 3 Months or Most Recently Relevant to Health Maintenance Insurance [place] Care Teams Public Weigher Relationship Specialty Start Date End Date Karlos Adame FNP [address] [place] [address], [address] [place] [address] PCP - General 11/17/20
== END 2025-06-20 11:00 | disposition home or self-care (01) ==
LOC: HO.HCS 10:29
PROVIDERS: PCP Nurse Practitioner Primary Care; Visit Provider Internal Medicine
DX: I25.10 Atherosclerotic heart disease of native coronary artery without angina pectoris (principal); Z95.5 Presence of coronary angioplasty implant and graft; E11.65 Type 2 diabetes mellitus with hyperglycemia; I10 Essential (primary) hypertension; E78.5 Hyperlipidemia, unspecified
CPT/HCPCS: 93010; 99214

== ENCOUNTER → 2025-06-20 10:18 | Outpatient (BNVA) | payer MEDICAID, SELFPAY | PROVIDERS: PCP Nurse Practitioner Primary Care; Visit Provider Internal Medicine | DX: I25.10 Atherosclerotic heart disease of native coronary artery without angina pectoris (principal); E11.65 Type 2 diabetes mellitus with hyperglycemia; E78.5 Hyperlipidemia, unspecified; Z95.5 Presence of coronary angioplasty implant and graft; I10 Essential (primary) hypertension | CPT/HCPCS: 93005; 99212 ==

== ENCOUNTER 2025-06-21 11:30 | Outpatient (REF) | payer MEDICAID, SELFPAY ==
--- OUTSIDE RECORDS SUMMARY | 2025-06-21 11:33 | XMS_ITS | Clinical Summary ---
Author Organization [facility] Facility Address [address] [place] [address] Care Team Providers Care Chart Calculator Name Role Phone Karlos Adame [facility] Primary Care Provider [phone] Family History Medical History Relation Comments Diabetes [...] Name Priority Date/Time Associated Diagnosis Comments LAB WELLNESS PROGRAM ADMINISTRATOR Routine 10/19/2017 12:00 AM EST from Last 3 Months or Most Recently Relevant to Health Maintenance Results * Lab Stock Counter (10/19/2017 12:00 AM EST) Hemoglobin A1C 5.9 % [facility] 10/19[facility]2017 [facility] Conversion LAB [id number] LICITED RESULTS Final Result [facility] from Last 3 Months or Most Recently Relevant to Health Maintenance Insurance Medicaid [place] Care Teams Chart Calculator Relationship Specialty Start Date End Date Karlos Adame FNP [address] [place] [address], [address]rd [place] [address] PCP - General 11/17/20
--- OUTSIDE RECORDS SUMMARY | 2025-06-21 11:33 | XMS_ITS | Encounter Summary ---
Author Organization [employer] Address [address] [facility] 7t [place] [address] Care Team Providers Care Maintenance Instructor Name Role Phone Sepideh Hopkins Primary Care Provider [phone] Vaishali Minor PharmD Unavailable Encounter Details Date Type Department Care Team (Latest Contact Info) Description 07/23/2022 Abstract [facility] CONVERSIONS Dental, Provider, DDS Social [...] Care Team (Late st Contact Info) Description 06/24/2025 2:30 PM EDT Office Visit [facility] ADULT DENTAL [address] [place] [address] Everett Angeles, DMD [address] [place] [address] 07/22/2025 11:00 AM EDT Medication Management [facility] MEDICINE [address] [place] [address] Vaishali Minor, PharmD [address] [place] [address] 08/30/2025 10:30 AM EDT Clinical Support [facility] MEDICINE [address] [place] [address] Shanelle Miller, MENDEL [address] [place] [address] documented as of this encounter Visit Diagnoses Not on filedocumented in this encounter Care Teams Maintenance Instructor Relationship Specialty Start Date End Date Sepideh Hopkins ANP [address] [place] [address] PCP - General Family Medicine 07/07/20 Vaishali Minor PharmD [address] [place] [address] Pharmacist Internal Medicine 10/29/24 documented as of this encounter
[2025-06-21 14:09] LABS: Magnesium 1.1 mg/dL (1.6-2.6)
== END 2025-06-21 11:31 | disposition home or self-care (01) ==
LOC: HO.HHCL 11:30
PROVIDERS: PCP Nurse Practitioner Primary Care; Visit Provider Nurse Practitioner Primary Care
DX: R42 Dizziness and giddiness (principal)
CPT/HCPCS: 36415; 83735

== ENCOUNTER 2025-06-27 14:33 | Outpatient (REF) | payer MEDICAID, SELFPAY ==
--- OUTSIDE RECORDS SUMMARY | 2025-06-27 14:39 | XMS_ITS | Clinical Summary ---
Author Organization [facility] Facility Address [address] [place] [address] Care Team Providers Care Photo Stylist Name Role Phone Karlos Adame [facility] Primary Care Provider [phone] Family History Medical History Relation Comments Diabetes [...] Name Priority Date/Time Associated Diagnosis Comments LAB J2EE APPLICATION DEVELOPER Routine 10/19/2017 12:00 AM EST from Last 3 Months or Most Recently Relevant to Health Maintenance Results * Lab Manager Video Games (10/19/2017 12:00 AM EST) Hemoglobin A1C 5.9 % [facility] 10/19/2017 [facility] Conversion LAB [id number] LICITED RESULTS Final Result [facility] from Last 3 Months or Most Recently Relevant to Health Maintenance Insurance Medicaid [place] Care Teams Photo Stylist Relationship Specialty Start Date End Date Karlos Adame FNP [address] [place] [address], [address] [place] [address] PCP - General 11/17/20
--- OUTSIDE RECORDS SUMMARY | 2025-06-27 14:39 | XMS_ITS | Encounter Summary ---
Author Organization [facility] [facility] [employer] Address [address] [facility] 7t [place] [address] Care Team Providers Care Top Icer Name Role Phone Sepideh Hopkins Primary Care Provider [phone] Vaishali Minor PharmD Unavailable [phone] Encounter Details Date Type Department Care Team (Latest Contact Info) Description 07/23/2022 Abstract [facility] CONVERSIONS Dental, Provider, DDS Social History [...] Care Team (Late st Contact Info) Description 06/27/2025 3:30 PM EDT Office Visit [facility] ADULT DENTAL [address] [place] [address] Everett Angeles, DMD [address] [place] [address] 07/22/2025 11:00 AM EDT Medication Management [facility] MEDICINE [address] [place] [address] Vaishali Minor, PharmD [address] [place] [address] 08/30/2025 10:30 AM EDT Clinical Support [facility] MEDICINE [address] [place] [address] Shanelle Miller, MENDEL [address] [place] [address] 01/02/2026 10:00 AM EST Office Visit [facility] ADULT DENTAL [address] [place] [address] Linsey Dawkins documented as of this encounter Visit Diagnoses Not on filedocumented in this encounter Care Teams Top Icer Relationship Specialty Start Date End Date Sepideh Hopkins ANP [address] [place] [address] PCP - General Family Medicine 07/07/20 Vaishali Minor PharmD [address] [place] [address] Pharmacist Internal Medicine 10/29/24 Clarence Perkins Catalogue CompilerJuice Scaleman 06/24/25 documented as of this encounter
[2025-06-27 17:02] LABS: Magnesium 1.2 mg/dL (1.6-2.6)
== END 2025-06-27 14:34 | disposition home or self-care (01) ==
LOC: HO.HHCL 14:33
PROVIDERS: PCP Nurse Practitioner Primary Care; Visit Provider Nurse Practitioner Primary Care
DX: E83.42 Hypomagnesemia (principal); R30.0 Dysuria
CPT/HCPCS: 36415; 83735; 87086

== ENCOUNTER 2025-07-23 11:34 | Inpatient (IN) | payer MEDICAID, SELFPAY ==
--- NOTE | 2025-07-23 | CA_ITS ---
Acquisition Time: 2025-07-24 10:02:41 Total Exercise Time: 00:04:10 Test Indications: CP Medications: SEE EMAR Protocol: YOVANY Max HR: 122 BPM 78% of Pred: 156 BPM Max BP: 132/74 mmHG Max Work Load: 6.0 METS Exercise stress test with exercise 4 mins 10 secs of Yovany Protocol, requesting to stop due to feeling tired, achieving 70% MPHR, reported chest pressure upon slowling the treadmill, no EKG changes at achieved workload. Test swicthed to Lexiscan. Pharmacological stress test with Lexiscan while pt continued to walk slow on treadmill, with reports of 5/10 mid chest pressure, SOB and nausea, with isolated PVCs, with normotensive response to injection. Nondiagnostic EKG for ischemia. In recovery, pt treated with IVP Aminophylline 75 mg to reverse Lexiscan after which pt feeeling back to baseline. Nuclear images pending. Test reviewed with Dr. Recinos. Referred By: Susi Barker Electronically Signed By: Regis Thomas
--- NOTE | ~2025-07-23 | XR_ITS ---
EXAMINATION: XR CHEST CLINICAL INFORMATION: CP COMPARISON: September 17, 2024. TECHNIQUE: Frontal view of the chest was obtained. FINDINGS: No consolidation, pleural effusion or pneumothorax. Mild pulmonary reticular pattern. No hyperinflation. Cardiomediastinal silhouette size is normal. Mild multilevel thoracic spondylosis. S-shaped curvature of the thoracic spine which could be positional. Patient's large body habitus. XR/XR chest 1V IMPRESSION: No acute airspace disease. Electronically signed by: Chapo Adams MD 07/23/2025 12:37 PM EDT
--- NOTE | ~2025-07-23 | NM_ITS ---
Lexiscan Myocardial perfusion study Indication: Chest pain Technique: The patient was brought in for a Lexiscan perfusion study on 07/24/2025 and was injected 0.4 mg of Lexiscan intravenously. Within a minute of this injection 30 mCi of sestamibi was given intravenously. Images were obtained using the SPECT gamma camera interlaced with the gating device. Images were obtained in supine position. Resting perfusion study was performed on 07/24/2025. Patient was administered 10 mCi of sestamibi intravenously at rest. Images were then obtained in supine position. Total DLP 80 mGy-cm. Images were processed with the software and compared side to side in short axis, horizontal long axis and vertical long axis views. Findings: Raw aquisition reviewed. The stress perfusion study showed mildly reduced tracer uptake in the distal part of inferolateral wall. Possibly improvement CT attenuation correction. The gated study shows normal LV systolic function with calculated LVEF of 57%. LV cavity is normal in size. The gated study shows normal wall thickening and contraction of segments. Resting study shows decreased tracer uptake along the inferior wall as well as mid anterior wall. There is adjacent subdiaphragmatic tracer uptake near the inferior wall. Perfusion defects could be artifactual. Gating at rest reveals normal wall motion with ejection fraction at 39%, but visually higher. The findings are consistent with no clear reversible or fixed perfusion defects. NM/NM ramon perf SPECT rest & str Impression: 1. Myocardial perfusion imaging study shows probably normal myocardial perfusion. 2. Gated LVEF is 57% during stress. 3. Transient ischemic dilatation not present. EKG component of the test reported separately. Electronically signed by: Rashid Recinos MD 07/24/2025 12:30 PM EDT
--- OUTSIDE RECORDS SUMMARY | 2025-07-23 10:20 | XMS_ITS | Encounter Summary ---
Author Organization [employer] Address [address] [facility] [address] [facility] [address] [place] [address] Care Team Providers Care Internal Grinding Machine Operator Name Role Phone Sepideh Hopkins JAVI Primary Care Provider [phone] Vaishali Minor PharmD Unavailable Encounter Details Date Type Department Care Team ([facility] st Contact Info) Description 07/23/2025 10:20 AM EDT Office Visit [facility] WALK-IN CENTER [address] [place] [address] Nancy Ma MD [address] [place] [address] Unstable angina (CMS/HCC) (Primary Dx); Chest pain, unspecified type Social History Tobacco Use Types Packs/Day Years Used Date Smoking Tobacco: Former Cigarettes Passive Smoke Exposure: Past Smokeless Tobacco: Never Alcohol Use Standard Drinks/Week [...] Sign Reading Time Taken Comments Blood Pressure 115/75 07/23/2025 10:16 AM EDT Pulse 84 07/23/2025 10:16 AM EDT Temperature 36.6 C (97.8 F) 07/23/2025 10:16 AM EDT Respiratory Rate 16 07/23/2025 10:1 6 AM EDT Oxygen Saturation 98% 07/23/2025 10: 16 AM EDT Inhaled Oxygen Concentration - - Weight 67.9 kg (149 lb 12.8 oz) 025 10:16 AM EDT Height 154.9 cm (5' 1 ) 07/23/2025 10:1 6 AM EDT Body Mass Index 28.3 07/23/2025 10:16 AM EDT documented in this encounter Plan of Treatment Upcoming Encounters Date Type Department Care Team (Late st Contact Info) Description 08/19/2025 11:00 AM EDT Medication Management [facility] MEDICINE [address] [place] [address] Vaishali Minor, PharmD [address] [place] [address] 08/30/2025 10:30 AM EDT Clinical Support [facility] MEDICINE [address] [facility] [place] [address] Shanelle Miller, RN [address] [place] [address] 10/01/2025 9:15 AM EST Office Visit [facility] MEDICINE [address] [place] [address] Sepideh Hopkins ANP [address] [facility] [place] [address] 01/02/2026 10:00 AM EST Office Visit [facility] ADULT DENTAL [address] [facility] [place] [address] Linsey Dawkins documented as of this encounter Procedures Procedure Name Priority Date/Time Associated Diagnosis Comments ECG 12-LEAD Routine 07/23/2025 10:58 AM EDT Chest pain, unspecified type documented in this encounter Results * ECG 12 lead (07/23/2025 10:58 AM EDT) Nancy Winter MD - 07/23/2025 10:58 AM EDT NSR at 77bpm. No ischemia or infarction. Nancy Ma MD ECG ORDERABLES Final Result documented in this encounter Visit Diagnoses Diagnosis Unstable angina (CMS/HCC)- Primary Intermediate coronary syndrome Chest pain, unspecified type documented in this encounter Administered Medications Inactive Administered Medications - up to 3 most recent administrations Medication Order MAR Action Action Date Dose Rate Site aspirin chewable tablet 324 mg 324 mg, Oral, Once, On Tue07/23/25 at 1115, For 1 doseIndications:Unstable angina (CMS/HCC) Given 07/23/2025 11:15 AM EDT 324 mg documented in this encounter Additional Health Concerns Assessment Noted Time PHQ-9 Depression Total Score: 5 11/23/19 1:05 PM EST documented as of this encounter Care Teams Internal Grinding Machine Operator Relationship Specialty Start Date End Date Sepideh Hopkins ANP [address] [facility] [place] [address] PCP - General Family Medicine 07/07/20 Vaishali Minor, IrwinD [address] [place] [address] Pharmacist Internal Medicine 10/29/24 Clarence Perkins Jewelry SorterEchocardiographer 06/24/25 documented as of this encounter
--- NOTE | 2025-07-23 11:37 | ECG_ITS ---
Test Reason : CHEST PAIN Blood Pressure : */* mmHG Vent. Rate : 80 BPM Atrial Rate : 80 BPM P-R Int : 130 ms QRS Dur : 82 ms QT Int : 354 ms P-R-T Axes : 66 26 65 degrees QTcB Int : 408 ms Normal sinus rhythm Nonspecific ST abnormality Abnormal ECG When compared with ECG of 19-Jun-2024 15:02, T wave inversion no longer evident in Anterior leads Referred By: Generic ED Physician Electronically Signed By: NACHO DOE
[2025-07-23 11:41] VITALS: BP 122/67; BP 134/76; PULSE 76; PULSE 86; RESP 19; TEMP 36.9; O2SAT 97; O2SAT 99; BMI 29.2
[2025-07-23 11:48] VITALS: BP 122/67; PULSE 76; RESP 19; TEMP 36.9; O2SAT 97
--- NOTE | 2025-07-23 11:50 | PC.NURSE ---
65 F presents to ED with CP since yesterday, got worse this morning. Pt was seen by the clinic yesterday and this morning, was given 324mg aspirin at the clinic and transported here via EMS. Pt sts she had a heart attack 2011. RR even and unlabored, sts some SOB but speaking in full and complete sentences without difficulty. A+OX4, calm, cooperative. Pt sts he ambulates independently.
[2025-07-23 12:18] LABS: MANUAL DIFF FLAG NO
[2025-07-23 12:24] LABS: Hematocrit 36.8 % (37.0-47.0); Hemoglobin 12.7 g/dl (12.0-16.0); Imm Gran Abs Auto 0.02 X10*3/uL (0.00-0.03); Imm Gran Pct Auto 0.3 % (0.0-0.4); Lymphocytes Absolute Auto 2.2 X10*3/uL (1.2-4.9); Mean Corpuscular HGB Conc 34.5 g/dl (31.0-35.0); Mean Corpuscular Hemoglobin 28.4 pg (27.0-33.0); Mean Corpuscular Volume 82.3 fL (80.0-98.0); NRBC Abs Auto 0.000 X10*3/uL (0.0-0.012); NRBC Pct Auto 0.0 /100WBC (0.0-0.2); Platelet Count 262 X10*3/uL (160-400); Red Blood Count 4.47 X10*6/uL (4.20-5.50); White Blood Count 7.0 X10*3/uL (4.8-10.8)
--- NOTE | 2025-07-23 12:33 | ED.CHESTPAIN ---
HPI - Chest Pain General Chief Complaint: Chest Pain Stated Complaint: WOKE UP W/CP,FROM WALK IN CLINIC PER EMS Time Seen by Provider: 07/23/25 11:51 Source: patient, EMS and civil engineer's aide (anguillan) Mode of arrival: EMS Limitations: language barrier (anguillan) History of Present Illness ED Provider: KLARISSA ARANA PA-C HPI narrative: 65 year old female with pmhx significant for CAD, HLD, DM, CAD s/p stent, HTN, GERD, on eliquis presents to the ED today via EMS from [facility] for evaluation of chest pain x2 days. Reports waking up with sternal chest pain yesterday. Pain has been constant into today, worse with exerting herself. No relief with rest. Admits to associated shortness of breath. She presented to [facility] today for evaluation of 9/10 pain, given 325 mg of aspirin with resolution of pain to 0/10. Transported to [facility] ED for further eval/ concern for unstable angina. At present, denies any pain. Denies recent travel/long car rides. Compliant with all home meds. Related Data Home Medications ?Medication ?Instructions ?Recorded ?Confirmed albuterol sulfate 90 mcg/actuation 2 puff inhalation Q4-6H PRN 08/26/20 06/20/25 aerosol inhaler (ProAir HFA) Shortness Of Breath Or Wheezing aspirin 81 mg tablet 81 mg PO DAILY 08/26/20 06/20/25 Held on 08/02/24. Instructions: Resume on 08/09/24. You may resume 1 week after surgery blood-glucose meter (FreeStyle 08/26/20 06/20/25 Lite Meter kit) budesonide-formoterol HFA 160 2 puff inhalation BID 08/26/20 06/20/25 mcg-4.5 mcg/actuation aerosol inhaler sertraline 100 mg tablet (Zoloft) 200 mg PO BEDTIME 08/26/20 06/20/25 apixaban 2.5 mg tablet (Eliquis) 2.5 mg PO 01/13/22 06/20/25 Held on 08/02/24. Instructions: Resume on 08/05/24. You may resume 3 days after surgery acarbose 100 mg tablet 100 mg PO TID 06/08/23 06/20/25 cholecalciferol (vitamin D3) 50 50 mcg PO DAILY 03/09/24 06/20/25 mcg (2,000 unit) tablet atorvastatin 40 mg tablet 40 mg PO BEDTIME 05/09/24 06/20/25 bupropion HCl 100 mg tablet,12 hr 100 mg PO DAILY 05/09/24 06/20/25 sustained-release cetirizine 10 mg tablet 10 mg PO DAILY 05/09/24 06/20/25 lorazepam 0.5 mg tablet 0.5 mg PO BID PRN Anxiety 05/09/24 06/20/25 tiotropium bromide 18 mcg capsule 1 cap inhalation DAILY 05/09/24 06/20/25 with inhalation device (Spiriva with HandiHaler) zolpidem 10 mg tablet 10 mg PO BEDTIME PRN Insomnia 05/09/24 06/20/25 gabapentin 300 mg capsule 600 mg PO TID 07/04/24 06/20/25 acetaminophen 500 mg tablet 1,000 mg PO Q6H PRN Pain 07/18/24 06/20/25 albuterol sulfate 2.5 mg/3 mL 1 inhalation Q6H PRN wheezing 07/18/24 06/20/25 (0.083 %) solution for nebulization fluticasone propionate 50 1 spray intranasal BID 07/18/24 06/20/25 mcg/actuation nasal spray,suspension metformin 500 mg tablet,extended 500 mg PO BID 07/18/24 06/20/25 release 24 hr nitroglycerin 0.4 mg sublingual 0.4 mg sublingual Q5M PRN Chest 07/18/24 06/20/25 tablet Pain lidocaine 5 % topical patch 1 patch topical 09/12/24 06/20/25 fenofibrate micronized 134 mg 134 mg PO DAILY 12/12/24 06/20/25 capsule flash glucose sensor (FreeStyle #1 ea 02/08/25 06/20/25 Dagmar 2 Sensor kit) magnesium oxide 400 mg (241.3 mg 400 mg PO DAILY 02/08/25 06/20/25 magnesium) tablet semaglutide 1 mg/dose (4 mg/3 mL) 2 mg subcut QWEEK 05/14/25 06/20/25 subcutaneous pen injector (Ozempic) metoprolol succinate 25 mg 50 mg PO BID 06/24/25 tablet,extended release 24 hr (Toprol XL) Previous Rx's ?Medication ?Instructions ?Recorded pen needle, diabetic 32 gauge x #150 ea 08/20/21 (BD Ultra-Fine Sienna Pen Needle) blood-glucose meter (FreeStyle #1 ea 08/21/21 Addison Lite kit) FreeStyle Lancets 28 gauge #300 ea 10/21/21 (lancets) blood sugar diagnostic (FreeStyle #300 ea 06/16/22 Lite Strips) insulin glargine 100 unit/mL (3 46 unit (0.46 mL) subcut QPM #15 mL 07/07/22 mL) subcutaneous pen (Lantus Solostar U-100 Insulin) docusate sodium 100 mg capsule 100 mg PO DAILY Constipation #30 03/09/24 (Colace) caps tramadol 50 mg tablet 50 mg PO Q8H PRN pain #20 tabs 08/08/24 sennosides 8.6 mg tablet (Natural 17.2 mg (2 x 8.6 mg) PO BEDTIME 02/08/25 Senna Laxative) constipation #180 tabs esomeprazole magnesium 40 mg 40 mg PO DAILY #90 caps 05/14/25 capsule,delayed release (Nexium) famotidine 40 mg tablet 40 mg PO BEDTIME #90 tabs 05/14/25 Allergies Allergy/AdvReac Type Severity Reaction Status Date / Time No Known Allergies Allergy Verified 07/23/25 11:43 Review of Systems Review of Systems: Yes all other systems are reviewed and are negative PMFSH Past Medical History Attestation statement: The following information was validated with the patient. 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 Mother Hx of colon cancer, stage I Hx of diabetes insipidus Social History Social History Household Members: None Housing: Apartment Are you a primary home care manager to a significant other at home: No Do you presently have visiting nurse or other home services: No Alcohol intake: never Patient Tobacco Use Status: Former Tobacco user Tobacco use type: Cigarette Years Smoked: (onset 19yo, 1ppd x 42yrs, 40pyh - quit 2021) Smoked in Last 30 Days: No Use of substances other than those prescribed or required for medical reasons: No Advance Directives: No Advance Directives Information Provided: Yes Do you have a plan to hurt others: No Plan Patient : No Physical Exam Vital Signs: Vital Signs: Last Vital Signs Temp 98.4 F 07/23/25 11:48 Pulse 77 07/23/25 13:32 Resp 13 07/23/25 13:32 BP 125/72 07/23/25 13:32 Pulse Ox 97 07/23/25 13:32 O2 Del Method Room Air 07/23/25 13:32 BMI result Body Mass Index 29.2 vital signs stable General: Well appearing, in no acute distress. Skin: Warm, dry, intact. No rashes or lesions. Head: Normocephalic, atraumatic. EENT: Hearing is intact b/l. Conjunctiva clear. Sclera is anicteric. PERRLA. EOM intact. Moist mucous membranes.? Neck: Supple without LAD Cardiac: Chest wall symmetric. RRR Lungs: Normal respiratory effort without accessory muscle use. CTA bilaterally. No rales, rhonchi, or wheezes.? Back: No midline spinous or paraspinal tenderness. No step off deformity. Ext: Upper and lower extremities atraumatic, without tenderness, deformity, swelling or erythema. No pitting edema. No calf tenderness bilaterally. Neuro: AOx3. Normal speech. Ambulating with steady gait. Psych: Appropriate mood and affect. Responds appropriately to questions. Course Course Course Narrative: CBC without leukocytosis or left shift. No anemia. H&H stable. Chemistry without acute electrolyte abnormality requiring intervention. Renal function around baseline. Random glucose 186, no gap. Liver function WNL. Troponin undetectable. EKG showing normal sinus rhythm, rate of 80 beats per minute, QT 334, QTC 408, no acute ischemic changes or ST elevations. Chest x-ray unremarkable > concern for unstable angina. I did reach out to back hanger dr. aguilar who recommends admission to medicine with plan for stress testing. Discussed with patient who is agreeable. Spoke with hospitalist, Susi will be placing admission orders. Medical Decision Making Medical Decision Making [facility] Narrative: 65 year old female with pmhx significant for CAD, HLD, DM, CAD s/p stent, HTN, GERD, on eliquis presents to the ED today via EMS from [facility] for evaluation of chest pain x2 days. vital signs stable, she is well apearing. exam is benign. Differential diagnosis includes stable versus unstable angina, NSTEMI, STEMI, anemia, electrolyte abnormality Plan for labs, EKG, chest x-ray, re-evaluation. Differential Diagnosis Differential Diagnoses: The differential diagnosis associated with the presentation includes as above. Admission/Observation Consideration of admission/observation: Escalation of care including admission/observation considered Patient admitted to medicine for stress testing Consult Healthcare Provider Management of the patient was discussed with: Hospitalist and Director Housekeeping cardiology - jeff Hospitalist DELIA Goldman Lab Data [facility] Lab Attestation statement: I reviewed the patient's lab results. as above 07/23/25 12:14 07/23/25 12:14 Labs: Lab Results 07/23/25 Range/Units 12:14 WBC 7.0 (4.8-10.8) X10*3/uL RBC 4.47 (4.20-5.50) X10*6/uL Hgb 12.7 (12.0-16.0) g/dl Hct 36.8 L (37.0-47.0) % MCV 82.3 (80.0-98.0) fL MCH 28.4 (27.0-33.0) pg MCHC 34.5 (31.0-35.0) g/dl RDW 13.2 (11.0-16.0) % Plt Count 262 (160-400) X10*3/uL MPV 11.4 (9.4-12.3) fL Immature Gran % (Auto) 0.3 (0.0-0.4) % Neut % (Auto) 58.3 (45-73) % Lymph % (Auto) 31.5 (20-40) % Ellsworth % (Auto) 7.3 (2-11) % Eos % (Auto) 1.7 (0-4) % Baso % (Auto) 0.9 (0-2) % Lymph # (Auto) 2.2 (1.2-4.9) X10*3/uL Ellsworth # (Auto) 0.5 (0.1-1.2) X10*3/uL Eos # (Auto) 0.1 (0.0-0.4) X10*3/uL Baso # (Auto) 0.1 (0.0-0.2) X10*3/uL Abs Immat Gran (auto) 0.02 (0.00-0.03) X10*3/uL Absolute Neuts (auto) 4.1 (2.0-8.3) x10*3/uL Absolute Nucleated RBC 0.000 (0.0-0.012) X10*3/uL Nucleated RBC % (auto) 0.0 (0.0-0.2) /100WBC Sodium 139 (135-145) mmol/L Potassium 4.2 (3.3-5.1) mmol/L Chloride 108 (96-108) mmol/L Carbon Dioxide 24 (22-29) mmol/L Anion Gap 11 L (12-20) BUN 19 H (9-16) mg/dL Creatinine 1.10 (0.5-1.4) mg/dL Estim Creat Clear Calc 46.2 Estimated GFR 50 Random Glucose 186 H (60-115) mg/dL Calcium 10.4 H (8.4-10.2) mg/dL Total Bilirubin 0.3 (0.0-1.0) mg/dL AST 19 (5-31) U/L ALT 20 (0-31) U/L Alkaline Phosphatase 103 (39-117) U/L Troponin I High Sens < 2.7 (<3.5-17.0) ng/L Total Protein 7.0 (6.5-8.0) g/dL Albumin 4.8 (3.5-5.0) g/dL Independent Interpretation I performed an independent interpretation of an: EKG Interpretation: ekg showing NSR with rate of 80 bpm, no acute ischemic changes or st elevations cxr without infiltrate or consolidation Radiology Impression Discussion of test interpretation with radiology: I have reviewed the radiologist's reading. Radiologist Impression: Ordering Physician: Bren Sage DO Date of Service: 07/23/25 Procedure(s): XR chest 1V Accession Number(s): [id number] cc: Bren Sage DO~ Reason for Exam: CP EXAMINATION: XR CHEST CLINICAL INFORMATION: CP COMPARISON: September 17, 2024. TECHNIQUE: Frontal view of the chest was obtained. FINDINGS: No consolidation, pleural effusion or pneumothorax. Mild pulmonary reticular pattern. No hyperinflation. Cardiomediastinal silhouette size is normal. Mild multilevel thoracic spondylosis. S-shaped curvature of the thoracic spine which could be positional. Patient's large body habitus. XR/XR chest 1V IMPRESSION: No acute airspace disease. Electronically signed by: Chapo Adams MD 07/23/2025 12:37 PM EDT Independent Historian Clinical information obtained from an independent historian. History obtained from or confirmed by: EMS External Record Review External record reviewed: Inpatient record, Office record, Outpatient record and Prior outpatient labs Prescription Management I considered prescription management with: Pain Medication Chronic Conditions Patient?s care impacted by: Hypertension and Other (CAD, [place]) Social Determinants Patient?s care significantly limited by Social Determinants of Health including: Other Social Determinant of Health Critical Care Time Critical Care Time Critical Care Time: Yes Total Critical Care Time: 31 Attestation: Critical care time in the amount of 31 minutes has been provided to the patient in terms of direct patient care, frequent reevaluation, consultation with cardiology and hospitalist, review and interpretation of medical data and results, and management of potentially life-threatening conditions. This is all outside of any medical procedures. Discharge Plan Discharge Clinical Impression: Unstable angina Patient Disposition: Admitted As Inpatient
[2025-07-23 12:37] LABS: Alanine Aminotransferase 20 U/L (0-31); Albumin Level 4.8 g/dL (3.5-5.0); Alkaline Phosphatase 103 U/L (39-117); Anion Gap 11 (12-20); Aspartate Amino Transferase 19 U/L (5-31); Blood Urea Nitrogen 19 mg/dL (9-16); Calcium 10.4 mg/dL (8.4-10.2); Carbon Dioxide 24 mmol/L (22-29); Chloride 108 mmol/L (96-108); Creatinine Clr Calc Pharmacy 46.2; Estimated Glomerular Filt Rate 50; Potassium 4.2 mmol/L (3.3-5.1); Sodium 139 mmol/L (135-145); Total Protein 7.0 g/dL (6.5-8.0)
[2025-07-23 12:46] LABS: Troponin-I High Sensitivity < 2.7 ng/L (<3.5-17.0)
[2025-07-23 13:32] VITALS: BP 125/72; PULSE 77; RESP 13; O2SAT 97
--- NOTE | 2025-07-23 14:42 | PM.IMHP ---
History of Present Illness Date of Service: 07/23/25 Chief Complaint: Chest pain 65-year-old woman presented to the ER with complaints of chest pain. Patient reported that the pain started yesterday. She describes it as substernal, constant sharp pain without radiation or other associated symptoms. She reported she was walking to [facility] today and the pain became worse. At [facility] they did give her an aspirin and called EMS to bring her to the hospital. She does have a history of coronary artery disease with drug-eluting stent in 2012. Subsequently after that she developed chest pain and had another cardiac catheterization which showed good perfusion. She denied shortness of breath, nausea, vomiting, diarrhea, recent illness, sick contacts. In the ED, EKG was not very different from previous EKG, troponin negative and flat. Patient was placed on observation for further management and treatment of chest pain. Review of Systems Review of Systems: Denies any recent fever chills or decrease in appetite respiratory denies any shortness of breath or cough cardiovascular denied chest pain gastrointestinal denies any dysphagia abdominal pain nausea vomiting or diarrhea genitourinary denies any dysuria frequency or hematuria musculoskeletal denies any joint pain or swelling neuropsych denies any weakness or seizures all other systems reviewed are negative [facility] Medical History Asthma Depression Anxiety Dizziness Headache Hx pulmonary embolism (~2016) Personal history of nicotine dependence History of colon polyps Osteophyte of cervical spine Stented coronary artery (~2012) Elevated LFTs CAD (coronary artery disease) Dyslipidemia Hypertension Diabetic polyneuropathy associated with type 2 diabetes mellitus 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 Mother Hx of colon cancer, stage I Hx of diabetes insipidus Surgical History History of colonoscopy History of esophagogastroduodenoscopy (EGD) History of heart artery stent Social History Household Members: None Housing: Apartment Are you a primary client care specialist to a significant other at home: No Do you presently have visiting nurse or other home services: No Alcohol intake: never Patient Tobacco Use Status: Former Tobacco user Tobacco use type: Cigarette Years Smoked: (onset 19yo, 1ppd x 42yrs, 40pyh - quit 2021) Smoked in Last 30 Days: No Use of substances other than those prescribed or required for medical reasons: No Advance Directives: No Advance Directives Information Provided: Yes Do you have a plan to hurt others: No Plan Patient : No Meds Allergies Allergy/AdvReac Type Severity Reaction Status Date / Time No Known Allergies Allergy Verified 07/23/25 11:43 Home Medications ?Medication ?Instructions ?Recorded ?Confirmed ?Last Taken ?Type albuterol sulfate 90 mcg/actuation 2 puff inhalation Q4-6H PRN 08/26/20 07/23/25 07/23/25 09:00 History aerosol inhaler (ProAir HFA) Shortness Of Breath Or Wheezing blood-glucose meter (FreeStyle 08/26/20 06/20/25 Unknown History Lite Meter kit) budesonide-formoterol HFA 160 2 puff inhalation BID 08/26/20 07/23/25 07/23/25 09:00 History mcg-4.5 mcg/actuation aerosol inhaler sertraline 100 mg tablet (Zoloft) 200 mg PO BEDTIME 08/26/20 07/23/25 07/23/25 09:00 History apixaban 2.5 mg tablet (Eliquis) 2.5 mg PO BID 01/13/22 07/23/25 07/23/25 09:00 History Held on 08/02/24. Instructions: Resume on 08/05/24. You may resume 3 days after surgery acarbose 100 mg tablet 100 mg PO TID 06/08/23 07/23/25 07/23/25 09:00 History cholecalciferol (vitamin D3) 50 50 mcg PO DAILY 03/09/24 07/23/25 07/23/25 09:00 History mcg (2,000 unit) tablet atorvastatin 40 mg tablet 40 mg PO BEDTIME 05/09/24 07/23/25 07/23/25 09:00 History bupropion HCl 100 mg tablet,12 hr 100 mg PO DAILY 05/09/24 07/23/25 07/23/25 09:00 History sustained-release cetirizine 10 mg tablet 10 mg PO DAILY 05/09/24 07/23/25 07/23/25 09:00 History lorazepam 0.5 mg tablet 0.5 mg PO BID PRN Anxiety 05/09/24 07/23/25 07/23/25 09:00 History tiotropium bromide 18 mcg capsule 1 cap inhalation DAILY 05/09/24 07/23/25 07/23/25 09:00 History with inhalation device (Spiriva with HandiHaler) zolpidem 10 mg tablet 10 mg PO BEDTIME PRN Insomnia 05/09/24 07/23/25 07/23/25 09:00 History gabapentin 300 mg capsule 600 mg PO TID 07/04/24 07/23/25 07/23/25 09:00 History acetaminophen 500 mg tablet 1,000 mg PO Q6H PRN Pain 07/18/24 07/23/25 07/23/25 09:00 History albuterol sulfate 2.5 mg/3 mL 2.5 mg inhalation Q6H PRN wheezing 07/18/24 07/23/25 07/23/25 09:00 History (0.083 %) solution for nebulization fluticasone propionate 50 1 spray intranasal BID 07/18/24 07/23/25 07/23/25 09:00 History mcg/actuation nasal spray,suspension metformin 500 mg tablet,extended 500 mg PO BID 07/18/24 07/23/25 07/23/25 09:00 History release 24 hr lidocaine 5 % topical patch 1 patch topical DAILY 09/12/24 07/23/25 07/23/25 09:00 History fenofibrate micronized 134 mg 134 mg PO DAILY 12/12/24 07/23/25 07/23/25 09:00 History capsule flash glucose sensor (FreeStyle #1 ea 02/08/25 06/20/25 Unknown History Dagmar 2 Sensor kit) magnesium oxide 400 mg (241.3 mg 400 mg PO DAILY 02/08/25 07/23/25 07/23/25 09:00 History magnesium) tablet semaglutide 1 mg/dose (4 mg/3 mL) 2 mg subcut FR 05/14/25 07/23/25 Unknown History subcutaneous pen injector (Ozempic) metoprolol succinate 25 mg 50 mg PO BID 06/24/25 07/23/25 07/23/25 09:00 History tablet,extended release 24 hr (Toprol XL) insulin glargine 100 unit/mL (3 30 unit subcut DAILY 07/23/25 07/23/25 07/23/25 09:00 History mL) subcutaneous pen (Lantus Solostar U-100 Insulin) Physical Exam Vital Signs and Narrative: Vital Signs: Last Vital Signs Temp 98.4 F 07/23/25 11:48 Pulse 77 07/23/25 13:32 Resp 13 07/23/25 13:32 BP 125/72 07/23/25 13:32 Pulse Ox 97 07/23/25 13:32 O2 Del Method Room Air 07/23/25 13:32 BMI result Body Mass Index 29.2 Appearing in no acute distress head is normocephalic atraumatic eyes pupils are PERRLA sclera is anicteric mouth throat mucous membranes are intact and moist neck is supple no lymphadenopathy, no JVD noted lung sounds are clear to auscultation heart regular rate rhythm, clear S1, S2 positive bowel sounds, abdomen is soft, nontender neuro patient is alert x3, no focal deficits Results Labs 07/23/25 12:14 07/23/25 12:14 Labs: Laboratory Results - last 24 hr 07/23/25 12:14 MCV 82.3 MCH 28.4 MCHC 34.5 RDW 13.2 Plt Count 262 MPV 11.4 Immature Gran % (Auto) 0.3 Neut % (Auto) 58.3 Lymph % (Auto) 31.5 Calloway % (Auto) 7.3 Eos % (Auto) 1.7 Baso % (Auto) 0.9 Lymph # (Auto) 2.2 Calloway # (Auto) 0.5 Eos # (Auto) 0.1 Baso # (Auto) 0.1 Abs Immat Gran (auto) 0.02 Absolute Neuts (auto) 4.1 Absolute Nucleated RBC 0.000 Nucleated RBC % (auto) 0.0 Anion Gap 11 L Estim Creat Clear Calc 46.2 Estimated GFR 50 Random Glucose 186 H Calcium 10.4 H Total Bilirubin 0.3 AST 19 ALT 20 Alkaline Phosphatase 103 Troponin I High Sens < 2.7 Total Protein 7.0 Albumin 4.8 Imaging Radiologist's Impressions: Impressions Chest X-Ray 07/23/25 12:25 IMPRESSION: No acute airspace disease. Electronically signed by: Chapo Adams MD 07/23/2025 12:37 PM EDT Assessment and Plan (1) CAD (coronary artery disease): Status: Acute Plan 65 year old women admitted with unstable angina. She has hx of CAD with ASHLEY in 2012. Follow with [facility] cardiology Unstable angina Chest pain for 2 weeks Monitor on telemetry No new changes on EKG Normal troponin Chest x-ray negative for consolidation or effusion Received aspirin at [facility] Cardiology consultation, plan for nuclear stress test Aspirin, statin and beta-prosper Diabetes mellitus Sliding scale, ADA diet Lantus History of PE On apixaban Mental health Continue home medications GERD Continue PPI DVT prophylaxis with apixaban Full code Quality Stroke Does the patient have a stroke diagnosis?: No VTE Prior VTE?: No VTE Risk Level:: Medical - moderate - high VTE Device Contraindication: Treatment Not Indicated VTE Drug Contraindication: N/A - Med Ordered
[2025-07-23 15:19] VITALS: BP 103/82; PULSE 81; RESP 14; O2SAT 97
--- NOTE | 2025-07-23 15:29 | PHA.MEDREC ---
Pharmacy Consult ? Medication Reconciliation Pharmacy has completed the medication reconciliation. Spoke to patient with global coordinator services. She says the only thing that changed since she was here in June was that her doctor stopped the Aspirin and she doesn't take nitroglycerin or senna anymore. Her insulin Glargine she takes 30 units daily now and her Ozempic she hasn't had in a few weeks due to pharmacy issues but normally takes on Fridays. We verbally confirmed other meds and these matched claims and discharge note from June.
--- NOTE | 2025-07-23 15:41 | HO.NURTONUR ---
66 F presents to ED with CP x 2 days, SOB with movement. Hx PA in 2011. Other hx: CAD, HLD, DM, CAD s/p stent, HTN, GERD. PT is on eliquis and recieved 324mg aspirin at the clinic prior to arrival. Pt is A+OX4, calm cooeprative. Pt ambulates indpedently. Admit for chest pain. Admit for chest pain. Labs: hgb 12.7, hct 36.8 Anion Gap 11, BUN 19, Calcium 10.4 CXR clear Pending ECHO, lxiscan stress, nuclear med
[2025-07-23] MEDS: 0.9 % Sodium Chloride Flush 3 ML SYRINGE IVFLUSH (15:44)
--- OUTSIDE RECORDS SUMMARY | 2025-07-23 16:45 | XMS_ITS | Encounter Summary ---
Author Organization [employer] Address [address] [place] [address] Care Team Providers Care Rouge Sifter Name Role Phone Sepideh Hopkins Primary Care Provider [phone] Vaishali Minor PharmD Unavailable Encounter Details Date Type Department Care Team (Late st Contact Info) Description 10/04/[address] [facility] [address] [place] [address] Dental, Provider, DDS Social History Tobacco Use [...] Description 08/19/2025 11:00 AM EDT Medication Management [facility] [address] [place] [id number] Vaishali Minor, PharmD [address] [place] [address] 08/30/2025 10:30 AM EDT Clinical Support [address] [address] Shanelle Miller, MENDEL [address] [place] [address] 10/01/2025 9:15 AM EST Office Visit [address] [address] Sepideh Hopkins ANP [address] [place] [address] 01/02/2026 10:00 AM EST Office Visit [facility] [address] [place] [address] Linsey Dawkins documented as of this encounter [...] on filedocumented in this encounter Care Teams Rouge Sifter Relationship Specialty Start Date End Date Sepideh Hopkins ANP [address] [place] [address] PCP - General Family Medicine 07/07/20 Vaishali iMnor PharmD [address] [place] [address] Pharmacist Internal Medicine 10/29/24 Clarence Perkins [employer]Warehouse Worker 06/24/25 documented as of this encounter
--- OUTSIDE RECORDS SUMMARY | 2025-07-23 16:45 | XMS_ITS | Encounter Summary ---
Author Organization [employer] Address 75 [facility] 7t [place] [address] Care Team Providers Care Shingle Grader Name Role Phone Sepideh Hopkins Primary Care Provider [phone] Vaishali Minor PharmD Unavailable Reason for Visit * Reason Onset Date Comments Durable Medical Equipment 06/11/2025 Encounter Details Date Type Department Care Team ([facility] st Contact Info) Description 06/11/2025 Telephone [facility] MEDICINE [address] [place] [address] Sepideh Hopkins ANP [address] [place] [address] Durable Medical Equipment Social History Tobacco Use Types Packs/Day Years [...] * Telephone Encounter - Ale Gill - 06/11/2025 3:13 PM EDT Please see message below and advise. If agree with DME request, please provide dx and notes to support the need. Thank you * Telephone Encounter - Cher Bateman - 06/11/2025 10:28 AM EDT Tc from pt director day care center [facility] requesting status on walker discussed during office visit with PCP on 05/31. documented in this encounter Plan of Treatment Upcoming Encounters Date Type Department Care Team (Late st Contact Info) Description 08/19/2025 11:00 AM EDT Medication Management [address] [address] Vaishali Minor, PharmD [address] [place] [address] 08/30/2025 10:30 AM EDT Clinical Support [facility] MEDICINE [address] [place] [address] Shanelle Miller, MENDEL [address] [place] [address] 10/01/2025 9:15 AM EST Office Visit [facility] MEDICINE [address] [place] [address] Sepideh Hopkins ANP [address] [place] [address] 01/02/2026 10:00 AM EST Office Visit [facility] ADULT DENTAL [address] [place] [address] Linsey Dawkins documented as of this encounter Visit Diagnoses Not on filedocumented in this encounter Additional Health Concerns Assessment Noted Time PHQ-9 Depression Total Score: 5 11/23/19 25 1:05 PM EST documented as of this encounter Care Teams Shingle Grader Relationship Specialty Start Date End Date Sepideh Hopkins ANP [address] [place] [address] PCP - General Family Medicine 07/07/20 Vaishali Minor, IrwinD [address] [place] [address] Pharmacist Internal Medicine 10/29/24 Clarence Perkins Multi Sensor OperatorEnvironmental Journalist 06/24/25 documented as of this encounter
--- OUTSIDE RECORDS SUMMARY | 2025-07-23 16:45 | XMS_ITS | Encounter Summary ---
Author Organization [employer] Address 75 [facility] 7t [place] [address] Care Team Providers Care Splitter Tender Name Role Phone Sepideh Hopkins JAVI Primary Care Provider [phone] Vaishali Minor PharmD Unavailable [phone] Encounter Details Date Type Department Care Team (Late st Contact Info) Description 01/10/2025 Orders Only [facility] CHC MED & PEDS [address] [place], [place] [phone] Provider, MD Jan Social History Tobacco Use Types Packs/Day Years [...] Upcoming Encounters Date Type Department Care Team ([facility] st Contact Info) Description 08/19/2025 11:00 AM EDT Medication Management [address] [address] Vaishali Minor PharmD [address] [place] [address] 08/30/2025 10:30 AM EDT Clinical Support [address] [address] Shanelle Miller, RN 505 [place] [address] 10/01/2025 9:15 AM EST Office Visit [facility] MEDICINE [address] [place] [address] Sepideh Hopkins ANP [address] [place] [address] 01/02/2026 10:00 AM EST Office Visit [facility] ADULT DENTAL [address] [place] [address] Linsey Dawkins documented as of this encounter Procedures Procedure Name Priority Date/Time Associated Diagnosis Comments HM COLONOSCOPY Routine 01/09/2025 8:51 AM EST documented in this encounter Results * Hm Colonoscopy (01/09/2025 8:51 AM EST) Historical Provider HEALTH MAINTENANCE Final Result documented in this encounter Visit Diagnoses Not on filedocumented in this encounter Additional Health Concerns Assessment Noted Time PHQ-9 Depression Total Score: 5 11/23/19 25 1:05 PM EST documented as of this encounter Care Teams Splitter Tender Relationship Specialty Start Date End Date Sepideh oHpkins ANP 230 [place] [address] PCP - General Family Medicine 07/07/20 Vaishali Minor PharmD [address] [place] [address] Pharmacist Internal Medicine 10/29/24 Clarence Perkins E Commerce Project ManagerTwisting Operator 06/24/25 documented as of this encounter
--- OUTSIDE RECORDS SUMMARY | 2025-07-23 16:45 | XMS_ITS | Clinical Summary ---
Author Organization [facility] Facility Address [address] [place] [address] Care Team Providers Care Cattle Dealer Name Role Phone Karlos Adame [facility] Primary Care Provider [phone] Family History Medical History Relation Comments Diabetes [...] Name Priority Date/Time Associated Diagnosis Comments LAB FURNACE FIRER Routine 10/19/2017 12:00 AM EST from Last 3 Months or Most Recently Relevant to Health Maintenance Results * Lab Physical Security Engineer (10/19/2017 12:00 AM EST) Hemoglobin A1C 5.9 % [facility] 10/19/2017 [facility] Conversion LAB [id number] LICITED RESULTS Final Result [facility] from Last 3 Months or Most Recently Relevant to Health Maintenance Insurance Medicaid [place] Care Teams Cattle Dealer Relationship Specialty Start Date End Date Karlos Adame FNP [address] [place] [address], 3rd [place] [address] PCP - General 11/17/20
--- OUTSIDE RECORDS SUMMARY | 2025-07-23 16:45 | XMS_ITS | Encounter Summary ---
Author Organization [employer] Address 75 [facility] 7t [place] [address] Care Team Providers Care Supervisor Feed House Name Role Phone Sepideh Hopkins Primary Care Provider [phone] Vaishali Minor PharmD Unavailable [phone] Encounter Details Date Type Department Care Team ([facility] st Contact Info) Description 06/21/2025 Results Follow-Up [facility] MEDICINE [address] [place] [address] Sepideh Hopkins ANP 230 [place] [address] Magnesium Social History Tobacco Use Types Packs/Day Years [...] as of this encounter Miscellaneous Notes * Result Encounter Note - JAVI Hill - 06/21/2025 2:52 PM EDT Addressed w/ team RN. Have sent mag supplement, if pt having any sx, will be sent to ED. Recheck level next week. documented in this encounter Plan of Treatment Upcoming Encounters Date Type Department Care Team (Late st Contact Info) Description 08/19/2025 11:00 AM EDT Medication Management [facility] MEDICINE [address] [place] [address] Vaishali Minor, PharmD [address] [place] [address] 08/30/2025 10:30 AM EDT Clinical Support [address] [address] Shanelle Miller, MENDEL [address] [place] [address] 10/01/2025 9:15 AM EST Office Visit [address] [address] Sepideh Hopkins ANP [address] [place] [address] 01/02/2026 10:00 AM EST Office Visit [facility] ADULT DENTAL [address] [facility] [place] [address] Linsey Dawkins documented as of this encounter Procedures Procedure Name Priority Date/Time Associated Diagnosis Comments MAGNESIUM Routine 06/27/2025 2:37 PM EDT Hypomagnesemia documented in this encounter Results * (ABNORMAL) Magnesium (06/27/2025 2:37 PM EDT) Magnesium 1.2(LL) 1.6 - 2.6 mg/dL [facility] Comment:Critical value for t est(s):MAGS Results called to and readback by:DEBBIE Jones Person calling: [email or web address] Date: [id number] Blood Venous blood specimen / Unknown 06/27/2025 2:37 PM EDT 06/27/2025 4:20 PM EDT Sepideh [facility] BLOOD ORDERABLES Final Resul t [facility] [address] [place] [address] [phone] documented in this encounter Visit Diagnoses Diagnosis Hypomagnesemia- Primary Disorders of magnesium metabolism documented in this encounter Additional Health Concerns Assessment Noted Time PHQ-9 Depression Total Score: 5 11/23/19 25 1:05 PM EST documented as of this encounter Care Teams Supervisor Feed House Relationship Specialty Start Date End Date Sepideh Hopkins ANP [facility] [place] [address] PCP - General Family Medicine 07/07/20 Vaishali [place] [address] Pharmacist Internal Medicine 10/29/24 Clarence Perkins Merchant BankerAir Traffic Controller Center 06/24/25 documented as of this encounter
--- OUTSIDE RECORDS SUMMARY | 2025-07-23 16:45 | XMS_ITS | Encounter Summary ---
Author Organization [employer] Address 75 [facility] 7t [place] [address] Care Team Providers Care Light Fixture Servicer Name Role Phone Sepideh Hopkins Primary Care Provider [phone] Vaishali Minor PharmD Unavailable Reason for Visit * Reason Comments Med Refill Encounter Details Date Type Department Care Team (Late st Contact Info) Description 06/16/[address] [facility] MEDICINE [address] [place] [address] Tisha Cornelius FNP Social History Tobacco Use Types Packs/Day Years [...] Description 08/19/2025 11:00 AM EDT Medication Management [facility] [address] [place] [address] Vaishali Minor, PharmD [address] [place] [address] 08/30/2025 10:30 AM EDT Clinical Support [facility]IC[facility] [address] [place] [address] Shanelle Miller RN [address] [place] [address] 10/01/2025 9:15 AM EST Office Visit [facility] MEDICINE [address] [place] [address] Sepideh Hopkins ANP [address] [place] [address] 01/02/2026 10:00 AM EST Office Visit [facility] ADULT DENTAL [address] [place] [address] Linsey Dawkins documented as of this encounter Visit Diagnoses Not on filedocumented in this encounter Care Teams Light Fixture Servicer Relationship Specialty Start Date End Date Sepideh Hopkins ANP [address] [place] [address] PCP - General Family Medicine 07/07/20 Vaishali Minor PharmD [address] [place] [address] Pharmacist Internal Medicine 10/29/24 Clarence Perkins Olive Brine TesterBand Saw Marker 06/24/25 documented as of this encounter
--- OUTSIDE RECORDS SUMMARY | 2025-07-23 16:45 | XMS_ITS | Encounter Summary ---
Author Organization [employer] Address 75 [facility] 7t [place] [address] Care Team Providers Care Rawhide Bone Roller Name Role Phone Sepideh Hopkins Primary Care Provider [phone] Vaishali Mionr PharmD Unavailable Encounter Details Date Type Department Care Team (Latest Contact Info) Description 07/23/2022 Abstract [facility] CONVERSIONS Dental, Provider, DDS Social History [...] Description 08/19/2025 11:00 AM EDT Medication Management [facility] MEDICINE [address] [place] [address] Vaishali Minor, PharmD 230 [place] [address] 08/30/2025 10:30 AM EDT Clinical Support [address] [address] Shanelle Miller, MENDEL [address] [place] [address] 10/01/2025 9:15 AM EST Office Visit [address] [address] Sepideh Hopkins ANP 230 [place] [address] 01/02/2026 10:00 AM EST Office Visit [facility] ADULT DENTAL [address] [place] [address] Linsey Dawkins documented as of this encounter Visit Diagnoses Not on filedocumented in this encounter Care Teams Rawhide Bone Roller Relationship Specialty Start Date End Date Sepideh Hopkins ANP 230 [place] [address] PCP - General Family Medicine 07/07/20 Vaishali Minor PharmD [address] [place] [address] Pharmacist Internal Medicine 10/29/24 Clarence Perkins Rand MakerLaundry Aid 06/24/25 documented as of this encounter
--- OUTSIDE RECORDS SUMMARY | 2025-07-23 16:45 | XMS_ITS | Encounter Summary ---
Author Organization [employer] Address 75 [facility] 7t [place] [address] Care Team Providers Care Airport Clerk Name Role Phone Sepideh Hopkins Primary Care Provider [phone] Vaishali Minor PharmD Unavailable [phone] Encounter Details Date Type Department Care Team ([facility] st Contact Info) Description 05/02/2025 Orders Only [facility] MEDICINE [address] [place] [address] Sepideh Hopkins ANP [address] [place] [address] Social History Tobacco Use Types Packs/Day Years [...] Description 08/19/2025 11:00 AM EDT Medication Management [facility] MEDICINE [address] [place] [address] Vaishali Minor, PharmD [address] [place] [address] 08/30/2025 10:30 AM EDT Clinical Support [address] [address] Shanelle Miller, MENDEL [address] [place] [address] 10/01/2025 9:15 AM EST Office Visit [facility] MEDICINE [address] [place] [address] Sepideh Hopkins ANP [address] [place] [address] 01/02/2026 10:00 AM EST Office Visit [facility] ADULT DENTAL [address] [place] [address] Linsey Dawkins documented as of this encounter Visit Diagnoses Not on filedocumented in this encounter Additional Health Concerns Assessment Noted Time PHQ-9 Depression Total Score: 5 01/17/20 25 1:05 PM EST documented as of this encounter Care Teams Airport Clerk Relationship Specialty Start Date End Date Sepideh Hopkins ANP 230 [place] [address] PCP - General Family Medicine 07/07/20 Vaishali Minor PharmD [address] [place] [address] Pharmacist Internal Medicine 10/29/24 Clarence Perkins Crew ChiefPrimer Expeditor And Drier 06/24/25 documented as of this encounter
--- OUTSIDE RECORDS SUMMARY | 2025-07-23 16:45 | XMS_ITS | Clinical Summary ---
Author Organization [employer] Address [address] [place] [address] Care Team Providers Care Review Consultant Name Role Phone Neil Bernard JAVI Primary Care Provider [phone] Vaishali Minor PharmD Unavailable [phone] Allergies No known active allergies Medications * This document contains information received from the source organization and may not represent a complete record from that organization. nitroglycerin (Nitrostat) 0.[address] 1 tablet under the tongue. 020 Active triamcinolone (Kenalog) 0.1 % creamIndications :Rash Apply topically if needed in the morning and at bedtime for rash. 30 g 024 Active Lancets (Unilet Micro-Thin 33G) miscIndications: Type 2 diabetes mellitus with hyperglycemia (CMS/HCC) TEST BLOOD SUGAR THREE TIMES DAILY 300 each 11 024 Active LORazepam (Ativan) 0.5 MG tablet Take 0.5 mg by mouth if needed in the morning and at bedtime for anxiety. 024 Active zolpidem (Ambien) 10 MG tablet Take 10 mg by mouth if needed at bedtime. 024 Active albuterol (2.5 MG/3ML) 0.083% nebulizer solutionIndicati ons:Chronic obstructive pulmonary disease with acute exacerbation (CMS/HCC) Take 3 mL (2.5 mg) by nebulization every 6 (six) hours if needed for wheezing or shortness of breath. 75 mL 3 024 Active albuterol 108 (90 Base) MCG/ACT inhaler Inhale 2 puffs every 4 (four) hours. 18 g 5 024 Active glucose blood (FreeStyle Precision Nader Test) test stripIndications :Type 2 diabetes mellitus with hyperlipidemia ([facility]/HCC) ([facility]) Use to test blood sugar 3 times daily 100 each 12 024 2024 Active docusate sodium (Colace) 100 MG capsule TAKE 1 CAPSULE BY MOUTH EVERY DAY FOR CONSTIPATION 024 Active esomeprazole (NexIUM) [address] capsule Take 1 capsule by mouth Once per day. 024 Active famotidine (Pepcid) 40 MG tablet Take 40 mg by mouth at bedtime. Active sertraline (Zoloft) 100 MG tablet Take 1 tablet by mouth once daily Active sodium chloride ([place]) 0.65 % nasal sprayIndications :Nasal congestion 2 sprays into each nostril twice daily 30 mL 3 025 Active glucose (Glutose) 40 % gel oral gelIndications:T ype 2 diabetes mellitus with hyperlipidemia ([facility]) ([facility]) Use as needed for low blood sugar 45 g 11 025 Active tiotropium (Spiriva HandiHaler) 18 MCG inhalation capsule USE 1 CAPSULE FOR INHALATION EVERY MORNING. DO NOT SWALLOW CAPSULE. 30 capsule 5 025 Active Symbicort 160-4.5 MCG/ACT inhaler INHALE 2 PUFFS TWICE DAILY IN THE MORNING AND AT BEDTIME. RINSE MOUTH AFTER USING. DO NOT SWALLOW. 10.2 g 5 025 Active fluticasone (Flonase) 50 MCG/ACT nasal sprayIndications :Allergic rhinitis, unspecified seasonality, unspecified trigger SPRAY 1 SPRAY IN EACH NOSTRIL TWICE DAILY 48 g 1 025 Active acetaminophen (Tylenol Extra Strength) 500 MG tabletIndication s:Chronic maxillary sinusitis Take 1-2 tablets by mouth every 8 hours as needed 30 tablet 025 Active insulin pen needle (BD Pen Needle Sienna U/F) 32G x 4 mm miscIndications: Type 2 diabetes mellitus with hyperglycemia ([facility]) Use as instructed with insulin administration once [...] EVERY MORNING 90 capsule 3 025 Active senna (Senokot) 8.6 MG tablet TAKE 2 TABLETS BY MOUTH EVERY DAY AT BEDTIME FOR CONSTIPATION 025 Active metoprolol succinate XL (Toprol-XL) 50 MG 24 hr tabletIndication s:Hypertension associated with diabetes (CMS/HCC) TAKE 1 TABLET BY MOUTH EVERY MORNING DO NOT BREAK, CRUSH, DISSOLVE OR CHEW 90 tablet 1 025 Active cetirizine (ZyrTEC) 10 MG tablet TAKE 1 TABLET BY MOUTH EVERY MORNING 90 tablet 1 025 Active naloxone (Narcan) 4 mg/0.1 mL nasal spray Administer 1 spray (4 mg) into affected nostril(s) if needed for opioid reversal. May repeat every 2-3 minutes if needed, alternating nostrils, until medical assistance becomes available. 2 each 025 2025 Active apixaban (Eliquis) 2.5 MG tabletIndication s:History of pulmonary embolism TAKE 1 TABLET BY MOUTH TWICE DAILY IN THE MORNING AND IN THE EVENING 60 tablet 3 Active buPROPion SR (Wellbutrin SR) 100 MG 12 hr tabletIndication s:Mixed anxiety and depressive disorder Take 1 tablet (100 mg) by mouth in the morning. 30 tablet 2 025 Active cholecalciferol VITAMIN D (Vitamin D-3) 50 MCG (1999 UT) tablet TAKE 1 TABLET BY MOUTH EVERY MORNING 90 tablet 1 025 Active gabapentin (Neurontin) 300 MG capsuleIndicatio ns:Diabetic polyneuropathy associated with type 2 diabetes mellitus (CMS/HCC) Take 2 capsules AM and 2 capsules at bedtime 120 capsule 2 025 Active insulin glargine (Lantus SoloStar) 100 UNIT/ML penIndications:T ype 2 diabetes mellitus with hyperlipidemia (CMS/HCC) (CMS/HCC) INJECT SUBCUTANEOUSLY 30 UNITS ONCE DAILY 15 mL 025 Active Continuous Glucose Sensor (FreeStyle Dagmar 2 Plus Sensor) miscIndications: Type 2 diabetes mellitus with hyperlipidemia (CMS/HCC) ([facility]) 1 each Use as directed. 2 each 11 Active Ozempic, 2 MG/DOSE, 8 MG/3ML solution pen-injectorIndi cations:Type 2 diabetes mellitus with hyperlipidemia (CMS/HCC) ([facility]) Inject 2 MG SUBCUTANEOUSLY EVERY 7 DAYS IN THE ABDOMEN, THIGHS OR UPPER ARM. ROTATE INJECTION SITES. 3 mL 3 025 Active lidocaine (Lidoderm) 5 % patchIndications :Neck pain APPLY 1 PATCH TOPICALLY TO SKIN, LEAVE ON FOR 12 HOURS AND OFF FOR 12 HOURS DIRECTED 30 patch 2 Active traMADol (Ultram) 50 MG tabletIndication s:Chronic bilateral low back pain without sciatica Take 1 tablet (50 mg) by mouth if needed each day for severe pain. 20 tablet Active magnesium oxide (Mag-Ox) 400 (240 Mg) MG tablet Take 400 mg by mouth in the morning. Active magnesium oxide (Mag-Ox) 400 MG tablet Take 1 tablet by mouth Once per day. 025 2024 Discontinued(R eorder (will not trigger notification to Pharmacy)) aspirin (Aspirin Adult Low Strength) 81 MG EC tabletIndication s:Type 2 diabetes mellitus with hyperlipidemia (CMS/HCC) ([facility]) Take 1 tablet (81 mg) by mouth in the morning. 90 tablet 3 025 2024 Discontinued(D iscontinued by another clinician) traMADol (Ultram) 50 MG tabletIndication s:Chronic bilateral low back pain without sciatica Take 1 tablet (50 mg) by mouth if needed each day for severe pain. 20 tablet 025 2024 Discontinued(R eorder (will not trigger notification to Pharmacy)) Magnesium Chloride-Calcium (Slow Magnesium/Calciu m) 64-106 MG tablet delayed-releaseI ndications:Hypom agnesemia 2 tabs BID for 5 days 20 tablet 025 2024 Discontinued(T herapy completed) magnesium oxide (Mag-Ox) 400 MG tabletIndication s:Hypomagnesemia Take 1 tablet (400 mg) by mouth Once per day. 90 tablet 3 025 2024 Discontinued(M ed list cleanup (will not trigger notification to Pharmacy)) Hospital, Clinic, or Other Facility Administered Medication Ordered Dose Route Frequency Start Date End Date Status predniSONE (Deltasone) tablet 40 mgIndications:Mild intermittent asthma with exacerbation 40 mg PO Daily 05/08/2024 Active albuterol 108 (90 Base) MCG/ACT inhaler 2 puffIndications:Mild intermittent asthma with exacerbation 2 puff IN Every 4 hours PRN 05/08/2024 Active aspirin chewable tablet 324 mgIndications:Unstab le angina (CMS/HCC) 324 mg PO Once 07/23/2025 07/23/2025 Ended Active Problems Problem Noted Date Diagnosed Date Hypomagnesemia 06/28/2025 Overview (06/28/2025): Likely d/t PPI, unable to stop nexium per GI - recommend diligent daily mag ox supplement. Long-term current use of opiate analgesic 2024 Chronic maxillary sinusitis 03/13/2025 Assessment & Plan (03/13/2025 5:07 PM EDT): I advised to use her Flonase every day and for long-term antibiotics until she can be seen by the ENT so I put her on Augmentin 875 125 mg twice daily for 2 weeks with a refill Chronic sinusitis of both maxillary sinuses 02/06 Assessment & Plan (02/28/2025 10:38 AM EDT): Rest (sleep at least 8 hours a night). Hydrate with plenty of water (avoid caffeine and alcohol). Use saline nose drops to loosen mucus + Flonase Take Acetaminophen (Tylenol )/Ibuprofen as needed to reduce fever, headache, body aches or discomfort Gargle with salt water and use throat sprays/lozenges for throat pain. Use heated, humidified air. If you do not have a humidifier, take hot showers. Cover coughs and sneezes using the crook of your elbow. If you have a fever, stay home and away from others (self isolation) until fever-free for 72 hours (temperature should be less than 100 F without medication). Will start prednisone x 7 days, no antibiotics indicated that she received her Augmentin and previously Cipro less than a month ago. Stressed importance of follow-up closely with ENT, has an appointment on April 2025 Advised against OTC nasal drops, reconsult as needed Personal history of nicotine dependence 02/02/20 Overview [...] neuro I believe, will cont to follow. Assessment & Plan (03/13/2025 5:05 PM EDT): I advised patient to change positions slowly to maintain hydration I will prescribe meclizine to be taken as needed for dizziness Alveolitis of maxilla 10/30/2024 CAD (coronary artery [...] Encounters Date Type Department Care Team Description 07/23/2025 10:20 AM EDT Office Visit [facility] [address] [place] [address] Nancy Ma MD Unstable angina (CMS/HCC) (Primary Dx); Chest pain, unspecified type 07/23/[address] [facility] [address] [place] [phone] Adrianna Hammonds RN 07/23/2025 Travel 07/22/2025 Travel 07/19/[address] [facility] [address] [place] [phone] Neil Bernard ANP nov recall 07/19/2025 Results Follow-Up [facility] [address] [place] [phone] Neil Bernard ANP Culture, Urine, Routine 07/19/[address] [facility] [address] [place] [phone] Neil Bernard ANP Hypomagnesemia (Primary Dx) 07/05/2025 1:00 PM EDT Office Visit [facility] [address] [place] [address] Everett Angeles DMD 07/03/2025 2:30 PM EDT Office Visit [facility] [address] [place] [address] Everett Angeles DMD 07/03/[address] [facility] [address] [place] [address], [place] [address] Everett Angeles, DMD Dr. Angeles case delivery 06/28/[address] [address] Sharon Garrison, seed cleaner operator Directions 06/28/[address] [facility] [address] [place] [address], [place] [address] Neil Bernard, JAVI Hypomagnesemia (Primary Dx) 06/27/2025 3:30 PM EDT Office Visit [facility] [address] [place] [address] Everett Angeles DMD 06/27/[address] [facility] [address] [place] [phone] Neil Bernard ANP Critical Magnesium 06/27/2025 Refill [facility] [address] [place] [address] Neil Bernard, JAVI Chronic bilateral low back pain without sciatica 06/26/[address] [facility] [address] [place] [phone] Neil Bernard, JAVI Chronic bilateral low back pain without sciatica 06/24/2025 3:00 PM EDT Office Visit [facility] [address] [place] [phone] Raysa Sneed 06/24/[address] [facility] [address] [place] [address] Neil Bernard ANP Care Coordination (ICP Care Plan) 06/24/[address] [facility] [address] [place] [address], [place] [address] Everett Angeles DMD 06/21/2025 11:00 AM EDT Office Visit [facility] [address] [place] [phone] Everett Angeles DMD 06/21/2025 Results Follow-Up [facility] [address] [place] [address] [address] Neil Bernard ANP Magnesium 06/21/[address] [facility] [place] [address] Neil Bernard ANP CRITICAL LAB 06/21/[address] [facility] [place] [address] Neil Bernard ANP Neck pain 06/19/2025 Refill [facility] [place] [address] Vaishali Minor PharmD Type 2 diabetes mellitus with hyperlipidemia (CMS/HCC) (CMS/HCC) 06/17/2025 Orders Only [facility] [place] [address] Neil Bernard ANP Hypomagnesemia (Primary Dx) 06/17/2025 Travel 06/11/[address] [address] Neil Bernard ANP Durable Medical Equipment 06/11/2025 Results Follow-Up [address] [address] Neil Bernard ANP BI Mammogram Diagnostic Tomosynthesis Bilateral 06/11/[address] [address] Neil Bernard ANP Durable Medical Equipment 06/03/2025 Refill [facility] [place] [address] Neil Bernard ANP Mixed anxiety and depressive disorder; Diabetic polyneuropathy associated with type 2 diabetes mellitus (CMS/HCC) 06/02/[address] [facility] [place] [address] Neil Bernard ANP Diabetic polyneuropathy associated with type 2 diabetes mellitus (CMS/HCC); Mixed anxiety and depressive disorder 05/31/2025 1:00 PM EDT Office Visit [facility] [place] [address] eNil Bernard ANP Dizziness (Primary Dx); Type 2 diabetes mellitus with hyperlipidemia (CMS/HCC) (CMS/HCC); Nausea and vomiting, unspecified vomiting type; Breast pain, left; Risk for falls 05/31/2025 Travel 05/30/[address] [facility] [address] [facility] [place] [address] Neil Bernard ANP chart prep 05/27/[address] [facility] [address] [facility] [place] [address] Neil Bernard ANP History of pulmonary embolism 05/23/[address] [facility] [address] [place] [address] Neil Bernard ANP History of pulmonary embolism; Diabetic polyneuropathy associated with type 2 diabetes mellitus (CMS/HCC) 05/17/2025 11:30 AM EDT Clinical Support [facility] [address] [place] [address] Shanelle Miller RN Long-term current use of opiate analgesic 05/17/2025 Refill [facility] [address] [place] [address] Shanelle Miller RN Chronic bilateral low back pain without sciatica 05/17/2025 Travel 05/16/[address] [facility] [place] [address] Ramez Schroeder MD Type 2 diabetes mellitus with hyperlipidemia (CMS/HCC) (CMS/HCC) (Primary Dx) 05/15/[address] [facility] [place] [address] Vaishali Minor, PharmD 05/15/2025 Travel 05/14/2025 2:30 PM EDT Office Visit [facility] [address] [place] [address] Everett Angeles DMD 05/13/2025 8:00 AM EDT Office Visit [facility] [address] [place] [address] Everett Angeles DMD 05/02/[address] [facility] [address] [place] [address] Neil Bernard ANP 05/02/[address] [facility] [place] [address] Neil Bernard ANP Hypertension associated with diabetes (CMS/HCC) from Last 3 Months Immunizations Immunization Administration Dates Next Due Hep B, adult [...] Passive Smoke Exposure: Past Smokeless Tobacco: Never Tobacco Cessation:Counseling Given: Not Answered Alcohol Use Standard Drinks/Week Comments Never 0 (1 standard drink = 0.6 oz pur e alcohol) Depression Answer Date Recorded Patient Health Questionnaire-9 Score 5 11/23/2024 Patient Health Questionnaire-9 Score 5 11/23/2024 Last PHQ-9: Questionnaire Data Not on file 0 11/23/2024 Housing Stability Answer Date Recorded What is your housing situation today? I have kb nata 11/18/[address] you li [...] Mass Index 28.3 07/23/2025 10:16 AM EDT Plan of Treatment Upcoming Encounters Date Type Department Care Team (Late st Contact Info) Description 08/19/2025 11:00 AM EDT Medication Management [facility] [address] [place] [phone] Vaishali Minor, PharmD [address] [place] [address] 08/30/2025 10:30 AM EDT Clinical Support [facility] [address] [place] [address] Shanelle Miller, MENDEL [address] [place] [address] 10/01/2025 9:15 AM EST Office Visit [facility] [address] [place] [address] Neil Bernard ANP [address] [place] [address] 01/02/2026 10:00 AM EST Office Visit [facility] [address] [place] [address] Linsey Dawkins Health Maintenance Due Date Last Done Comments CT Colonography 1961 FIT DNA/Cologuard 1961 FIT 1961 FOBT 1961 HIV Screening 1961 Sigmoidoscopy 1961 Diabetes: Foot Exam 1971 Hepatitis C Screening 1979 Pap Smear 1982 Cervical Cancer Screening 1991 HPV/Cotest 1991 Dental Oral Exam 03/25/2025 09/24/2024 Influenza Vaccine (#1) 2025 , 11/18/2023, 09/03/2022, Additional history exists Diabetes: Hemoglobin A1C 08/15/2025 07 025, 02/05/2025, 11/12/2024, Additional history exists Dental X-Ray: Bitewings 09/25/2025 09/24/2024 Alcohol/Substance Use Screening 10/01/2025 10/01/2024 SDOH Screening 10/10/2025 10/10/2024 Diabetes: Urine Protein Screening 10/12/2025 10/12/2024, 09/03/2022, 08/04/2021 Depression Screening 11/23/2025 11/23/2024, 11/23/19 Lipid Panel 12/17/2025 12/17/2024, 11/09, 01/27/2022, Additional history exists Dental Prophylaxis 12/26/2025 06/24/2025, 11/14/2024 Colonoscopy 01/09/2026 01/09/2025, 04/15/2015 Colorectal Cancer Screening 01/09/2026 Disability Screening 05/31/2026 05/31/2025 Mammogram 06/11/2026 06/11/2025, 03/2025, 06/06/2024, Additional history exists Tobacco Screening 07/23/2026 07/23/2025 Eye Exam 12/11/2026 12/11/2024, 02/2025, 12/11/2024, Additional history exists Dental X-Ray: Full Mouth 09/25/2027 09/24/2024 DTaP/Tdap/Td Vaccines (3 - Td or Tdap) 11/18/2033 11/18/2023, 07/12/2013, 05/19/2006 Hepatitis B Vaccines Completed 06/26/2012, 06/18/2003, 05/16/2003 Zoster Vaccines Completed 07/28/2020, 11/08/2019 COVID-19 Vaccine Completed 08/17/2024, 08/2022, 02/18/2021, Additional history exists Pneumococcal Vaccine: 50+ Years [...] patient's age to complete this topic Meningococcal B Vaccine Aged Out No l onger eligible based on patient's age to complete [...] 10:58 AM EDT Chest pain, unspecified type DENTURE ADJUSTMENT Routine 07/05/2025 1: 00 PM EDT CASE PRESENTATION, DETAILED AND EXTENSIVE TREATMENT PLANNING Routine 07/03/2025 2:30 PM EDT RELINE COMPLETE MAXILLARY DENTURE (LABORATORY) Routine 07/03/2025 2:30 PM EDT NO CHARGE VISIT Routine 06/27/2025 3:30 PM EDT MAGNESIUM Routine 06/27/2025 2:37 PM EDT Hypomagnesemia CULTURE, URINE, ROUTINE Routine 06/27/2025 2:37 PM EDT Dysuria CASE PRESENTATION, DETAILED AND EXTENSIVE TREATMENT PLANNING Routine 06/24/2025 3:00 PM EDT PROPHYLAXIS - ADULT Routine 06/24/2025 3 :00 PM EDT MAGNESIUM Routine 06/21/2025 11:35 AM EDT Dizziness DENTURE IMPRESSION Routine 06/21/2025 11 :00 AM EDT BI US BREAST LIMITED LEFT Routine 06/11/2025 10:30 AM EDT Breast pain, left BI MAMMOGRAM DIAGNOSTIC TOMOSYNTHESIS BILATERAL Routine 06/11/2025 10:05 AM EDT Breast pain, left LDCT LUNG SCREENING Routine 06/04/2025 4 :30 PM EDT POCT GLUCOSE Routine 05/31/2025 1:15 PM EDT Type 2 diabetes mellitus with hyperlipidemia (CMS/HCC) ([facility]) POCT JAMES-14 URINE DRUG SCREEN Routine 05/17/2025 11:28 AM EDT Long-term current use of opiate analgesic POCT GLYCATED HEMOGLOBIN, TOTAL Routine 05/15/2025 11:01 AM EDT Type 2 diabetes mellitus with hyperlipidemia (CMS/HCC) (CMS/HCC) CASE PRESENTATION, DETAILED AND EXTENSIVE TREATMENT PLANNING Routine 05/14/2025 2:30 PM EDT 10 REPLACE BROKEN TEETH - PER TOOTH Routine 05/14/2025 2:30 PM EDT REPAIR RESIN PARTIAL DENTURE BASE, DANIEL Routine 05/14/2025 2:30 PM EDT DENTURE FOLLOWUP Routine 05/13/2025 8:00 AM EDT HM COLONOSCOPY Routine 01/09/2025 8:51 AM EST LIPID PANEL, STANDARD Routine 12/17/2024 6:58 AM EST ALBUMIN, RANDOM URINE W/CREATININE Routine 10/12/2024 9:52 AM EST SANDRINE (acute kidney injury) ([facility]/HCC) Type 2 diabetes mellitus with hyperlipidemia (CMS/HCC) ([facility]) INTRAORAL - COMPLETE SERIES OF RADIOGRAPHIC IMAGES Routine 09/24/2024 1:00 PM EST PERIODIC ORAL EVALUATION - ESTABLISHED PATIENT Routine 09/24/2024 1:00 PM EST from Last 3 Months or Most Recently Relevant to Health Maintenance Results * ECG 12 lead (07/23/2025 10:58 AM EDT) Nancy Winter MD - 07/23/2025 10:58 AM EDT NSR at 77bpm. No ischemia or infarction. Nancy Ma MD ECG ORDERABLES Final Result * Culture, Urine, Routine (06/27/2025 2:37 PM EDT) Urine Urine specimen obtained by clean catch procedure / Unknown 06/27/2025 2:37 PM EDT 06/27/2025 4:25 PM EDT Comment:[facility] Narrative [facility] - 06/29/2025 10:59 AM EDT Urine Culture No growth. Specimen Source: Urine clean catch Neil [facility] MICROBIOLOGY - GENERAL ORDER [place] Final Result [facility] [address] [place] [phone] * (ABNORMAL) Magnesium (06/27/2025 2:37 PM EDT) Only the most recent of2 resultswithin the time period is included. Magnesium 1.2(LL) 1.6 - 2.6 mg/dL [facility] Comment:Critical value for t est(s):MAGS Results called to and readback by:DEBBIE Jones Person calling: KUSF Date: [id number] Blood Venous blood specimen / Unknown 06/27/2025 2:37 PM EDT 06/27/2025 4:20 PM EDT us Neil Bernard ANP LAB BLOOD ORDERABLES Final Resul t [facility] [address] [place] [phone] * BI US Breast Limited Left (06/11/2025 10:30 AM EDT) Anatomical Region Laterality Modality Breast Left Ultrasound 06/11/2025 10:3 0 AM EDT Narrative 06/11/2025 10:59 AM EDT [address] [place] [address] Ultrasound Report Signed Patient: Joelle Myers I MR#: [id number] : 1960 Acct:[id number] Age/Sex: 64 / F ADM Date: 06/11/25 Loc: HO.MAMMO Attending Dr: Neil Bernard NP Ordering Physician: NEIL BERNARD NP Date of Service: 06/11/25 Procedure(s): US breast LT limited Accession Number(s): [id number] cc: NEIL BERNARD NP EXAMINATIONS: 1. MM DIAGNOSTIC DIGITAL BREAST TOMOSYNTHESIS, BILATERAL 2. Targeted ultrasound of the left breast CLINICAL INFORMATION: -L breast pain, +h/o breast biopsy x 2 same area 40 year ago -pain in L upper outer quadrant COMPARISON: Comparison made to multiple prior, most recent June 06, 2024, and most remote December 19, 2020. TECHNIQUE: Digital breast tomosynthesis is performed in both the craniocaudal and mediolateral oblique views along with computer-aided detection (CAD). Synthesized 2D images are generated from the tomosynthesis. FINDINGS: BREAST COMPOSITION: The breasts are heterogeneously dense, which may obscure small masses (ACR BI-RADS breast composition Category c). RIGHT BREAST: No significant masses, suspicious calcifications or other abnormalities are seen. LEFT BREAST: Remote history of 2 excisional biopsies. No significant masses, suspicious calcifications or other abnormalities are seen. In particular, no suspicious abnormalities in the upper-outer quadrant. Targeted ultrasound of the left breast was performed at the location of the pain as indicated by the patient. The survey centered from 12:00-2:00 positions from 2 to 12 cm from the nipple did not reveal suspicious mammographic findings. US/US breast LT limited IMPRESSION: RIGHT BREAST: Negative, no mammographic evidence of malignancy. Normal interval follow-up is recommended in 12 months. LEFT BREAST: Benign, no evidence of malignancy. No abnormal findings to account for patient's concern of focal pain. Clinical follow-up is recommended, otherwise, normal interval follow-up mammogram is recommended in 12 months. ASSESSMENT: BI-RADS 2 - Benign Findings RECOMMENDATION: 1. Patient should be managed based on the clinical impression. 2. Otherwise, routine annual screening mammography. Results were provided to the patient at time of visit by the technologist. This patient's information was entered into a reminder system with a target due date for their next mammogram. Electronically signed by: Lon Otero MD 06/11/2025 10:56 AM EDT Dictated By: Lon Otero MD Signed By: <Electronically signed by Lon Otero MD in OV> 06/11/25 1056 DD/ 1030 TD/TT: 06/11/25 1049 Exhaust Worker: Procedure Note Donotuseinterpreter, Image - 06/11/2025 [facility] [address] [place], [place] [address] Ultrasound Report Signed Patient: Joelle Myers [facility]#: [id number] : 1Acct:[id number] Age/Sex: 64 / FADM Date: 06/11/25 Loc: [facility].MAMMO Attending Dr: Neil Bernard NP Ordering Physician: NEIL BERNARD NP Date of Service: 06/11/25 Procedure(s): US breast LT limited Accession Number(s): [id number] cc: NEIL BERNARD NP EXAMINATIONS: 1. MM DIAGNOSTIC DIGITAL BREAST TOMOSYNTHESIS, BILATERAL 2. Targeted ultrasound of the left breast CLINICAL INFORMATION: -L breast pain, +h/o breast biopsy x 2 same area 40 year ago -pain in L upper outer quadrant COMPARISON: Comparison made to multiple prior, most recent June 06, 2024, and most remote December 19, 2020. TECHNIQUE: Digital breast tomosynthesis is performed in both the craniocaudal and mediolateral oblique views along with computer-aided detection (CAD). Synthesized 2D images are generated from the tomosynthesis. FINDINGS: BREAST COMPOSITION: The breasts are heterogeneously dense, which may obscure small masses (ACR BI-RADS breast composition Category c). RIGHT BREAST: No significant masses, suspicious calcifications or other abnormalities are seen. LEFT BREAST: Remote history of 2 excisional biopsies. No significant masses, suspicious calcifications or other abnormalities are seen. In particular, no suspicious abnormalities in the upper-outer quadrant. Targeted ultrasound of the left breast was performed at the location of the pain as indicated by the patient. The survey centered from 12:00-2:00 positions from 2 to 12 cm from the nipple did not reveal suspicious mammographic findings. US/US breast LT limited IMPRESSION: RIGHT BREAST: Negative, no mammographic evidence of malignancy. Normal interval follow-up is recommended in 12 months. LEFT BREAST: Benign, no evidence of malignancy. No abnormal findings to account for patient's concern of focal pain. Clinical follow-up is recommended, otherwise, normal interval follow-up mammogram is recommended in 12 months. ASSESSMENT: BI-RADS 2 - Benign Findings RECOMMENDATION: 1. Patient should be managed based on the clinical impression. 2. Otherwise, routine annual screening mammography. Results were provided to the patient at time of visit by the technologist. This patient's information was entered into a reminder system with a target due date for their next mammogram. Electronically signed by: Lon Otero MD 06/11/2025 10:56 AM EDT Dictated By: Lon Otero MD Signed By: <Electronically signed by Lon Otero MD in OV> 06/11/25 1056 DD/ 1030 TD/TT: 06/11/25 1049 Exhaust Worker: us Neil Bernard ANP IMG US PROCEDURES Edited Result - Final * BI Mammogram Diagnostic Tomosynthesis Bilateral (06/11/2025 10:05 AM EDT) Anatomical Region Laterality Modality Breast Bilateral Mammography 06/11/2025 10:0 5 AM EDT Narrative 06/11/2025 10:59 AM EDT [place] [facility]'s [address] [place] [address] Mammography Report Signed Patient: Joelle Myers I MR#: [id number] 426 : 1960 Acct:[id number] Age/Sex: 64 / F ADM Date: 06/11/25 Loc: HO.MAMMO Attending Dr: Neil Beranrd NP Ordering Physician: NEIL BERNARD NP Results: 2Benign Fin dings Date of Service: 06/11/25 Follow Up: 1 Year From Orig inal Mammogram Procedure(s): MM tomosynthesis diagnostic BI Accession Number(s): [id number] cc: NEIL BERNARD NP EXAMINATIONS: 1. MM DIAGNOSTIC DIGITAL BREAST TOMOSYNTHESIS, BILATERAL 2. Targeted ultrasound of the left breast CLINICAL INFORMATION: -L breast pain, +h/o breast biopsy x 2 same area 40 year ago -pain in L upper outer quadrant COMPARISON: Comparison made to multiple prior, most recent June 06, 2024, and most remote December 19, 2020. TECHNIQUE: Digital breast tomosynthesis is performed in both the craniocaudal and mediolateral oblique views along with computer-aided detection (CAD). Synthesized 2D images are generated from the tomosynthesis. FINDINGS: BREAST COMPOSITION: The breasts are heterogeneously dense, which may obscure small masses (ACR BI-RADS breast composition Category c). RIGHT BREAST: No significant masses, suspicious calcifications or other abnormalities are seen. LEFT BREAST: Remote history of 2 excisional biopsies. No significant masses, suspicious calcifications or other abnormalities are seen. In particular, no suspicious abnormalities in the upper-outer quadrant. Targeted ultrasound of the left breast was performed at the location of the pain as indicated by the patient. The survey centered from 12:00-2:00 positions from 2 to 12 cm from the nipple did not reveal suspicious mammographic findings. MM/MM tomosynthesis diagnostic BI IMPRESSION: RIGHT BREAST: Negative, no mammographic evidence of malignancy. Normal interval follow-up is recommended in 12 months. LEFT BREAST: Benign, no evidence of malignancy. No abnormal findings to account for patient's concern of focal pain. Clinical follow-up is recommended, otherwise, normal interval follow-up mammogram is recommended in 12 months. ASSESSMENT: BI-RADS 2 - Benign Findings RECOMMENDATION: 1. Patient should be managed based on the clinical impression. 2. Otherwise, routine annual screening mammography. Results were provided to the patient at time of visit by the technologist. This patient's information was entered into a reminder system with a target due date for their next mammogram. Electronically signed by: Lon Otero MD 06/11/2025 10:56 AM EDT RP Workstation: [id number] Dictated By: Lon Otero MD Signed By: <Electronically signed by Lon Otero MD in OV> 06/11/25 1056 DD/ 1005 TD/TT: 06/11/25 1030 Exhaust Worker: Procedure Note Donotuseinterpreter, Image - [facility]/11/[facility] [address] [place] [address] Mammography Report Signed Patient: Joelle Myers IMR#: [id number] : 1960cct:[id number] Age/Sex: 64 / FADM Date: 06/11/25 Loc: HO.MAMMO Attending Dr: Neil Bernard NP Ordering Physician: NEIL BERNARD NPResults: 2Benign Ashu ho Date of Service: 06/11/25Follow Up: 1 Year From Orig inal Mammogram Procedure(s): MM tomosynthesis diagnostic BI Accession Number(s): [id number] cc: NEIL BERNARD NP EXAMINATIONS: 1. MM DIAGNOSTIC DIGITAL BREAST TOMOSYNTHESIS, BILATERAL 2. Targeted ultrasound of the left breast CLINICAL INFORMATION: -L breast pain, +h/o breast biopsy x 2 same area 40 year ago -pain in L upper outer quadrant COMPARISON: Comparison made to multiple prior, most recent June 06, 2024, and most remote December 19, 2020. TECHNIQUE: Digital breast tomosynthesis is performed in both the craniocaudal and mediolateral oblique views along with computer-aided detection (CAD). Synthesized 2D images are generated from the tomosynthesis. FINDINGS: BREAST COMPOSITION: The breasts are heterogeneously dense, which may obscure small masses (ACR BI-RADS breast composition Category c). RIGHT BREAST: No significant masses, suspicious calcifications or other abnormalities are seen. LEFT BREAST: Remote history of 2 excisional biopsies. No significant masses, suspicious calcifications or other abnormalities are seen. In particular, no suspicious abnormalities in the upper-outer quadrant. Targeted ultrasound of the left breast was performed at the location of the pain as indicated by the patient. The survey centered from 12:00-2:00 positions from 2 to 12 cm from the nipple did not reveal suspicious mammographic findings. MM/MM tomosynthesis diagnostic BI IMPRESSION: RIGHT BREAST: Negative, no mammographic evidence of malignancy. Normal interval follow-up is recommended in 12 months. LEFT BREAST: Benign, no evidence of malignancy. No abnormal findings to account for patient's concern of focal pain. Clinical follow-up is recommended, otherwise, normal interval follow-up mammogram is recommended in 12 months. ASSESSMENT: BI-RADS 2 - Benign Findings RECOMMENDATION: 1. Patient should be managed based on the clinical impression. 2. Otherwise, routine annual screening mammography. Results were provided to the patient at time of visit by the technologist. This patient's information was entered into a reminder system with a target due date for their next mammogram. Electronically signed by: Lon Otero MD 06/11/2025 10:56 AM EDT Dictated By: Lon Otero MD Signed By: <Electronically signed by Lon Otero MD in OV> 06/11/25 1056 DD/ 1005 TD/TT: 06/11/25 1030 Exhaust Worker: Neil CALDWELL [facility] BI PROCEDURES Edited Result - Final * CT Lung Screening Low dose (06/04/2025 4:30 PM EDT) Anatomical Region Laterality Modality Lung Computed Tomogra phy 06/04/2025 4:30 PM EDT Narrative 06/04/2025 4:31 PM EDT [address] [place] [address] CT Scan Report Signed Patient: Joelle Myers I MR#: [id number] : 1960 Acct:[id number] Age/Sex: 64 / F ADM Date: 06/03/25 Loc: HO.CT Attending Dr: Tracey Moreno PA-C Ordering Physician: Tracey Moreno PA-C Date of Service: 06/03/25 Procedure(s): CT lung screening Accession Number(s): [id number] cc: Tracey Moreno PA-C; NEIL BERNARD NP Report Number: [id number]: Total DLP = 39.00 mGy-cm CLINICAL HISTORY: Z87.891 - Personal history of nicotine dependence CT lung cancer screening Technique: Axial CT images of the chest using low-dose technique. Effective radiation dose: DLP 28.0 mGy. Cm, CTDIvol 1.08 mGy Referring provider counseled the patient on shared decision-making for LDCT screening. Additional counseling was provided on smoking cessation. Comparison: CR/SR - XR CHEST 1 VIEW - 09/17/24 15:[address]/DE/SR - CT LUNG SCREENING - 05/30/24 13:[address]/DE/SR - CT LUNG SCREENING - 05/04/24 12:02 EDT Findings: Lung nodules RUL: 2 mm nodule image 22 previously 3 mm RML: None RLL: None SARAH: Stable 3 mm nodule posteriorly image 32 Lingula: Resolving discoid atelectasis inferior lingula image 97. LLL: None COPD: Mild emphysematous changes. Pleural spaces: Normal. Coronary artery calcifications: Mild with coronary artery stent. Limited upper abdomen: Unremarkable. Other: None. Impression: LungRADS 2 - Benign Appearance: Continue annual screening with low dose Chest CT in 12 months. ##L2## ACR LungRADS Categories Category 1: Normal; continue annual screening Category 2: Benign appearance or behavior, continue annual screening Category 3: Probably benign, [address] recommended Category 4A: Suspicious, [address] recommended; may consider PET/CT Category 4B: Suspicious, Additional diagnostics and/or tissue sampling recommended Category 4X: Suspicious, Additional diagnostics and/or tissue sampling Category 0: Recalls (incomplete screen due to Incomplete coverage, Noise, Respiratory motion, Expiration, Obscured by acute abnormality) This document has been electronically signed by: Kb Tirado MD on 06/04/2025 16:30:20 Dictated By: Kb Tirado MD Signed By: <Electronically signed by Kb Tirado MD in OV> 06/04/25 1631 DD/ 1630 TD/TT: 06/04/25 1630 Exhaust Worker: Procedure Note Donotuseinterpreter, Image - 06/04/[address] [place] [address] [address] Scan Report Signed Patient: Joelle Myers IMR#: [id number] : 1960cct:[id number] Age/Sex: 64 / FADM Date: 06/03/25 Loc: HO.CT Attending Dr: Tracey Moreno PA-C Ordering Physician: Tracey Moreno PA-C Date of Service: 06/03/25 Procedure(s): CT lung screening Accession Number(s): [id number] cc: Tracey Moreno PA-C; NEIL BERNARD NP Report Number: [id number]: Total DLP = 39.00 mGy-cm CLINICAL HISTORY: Z87.891 - Personal history of nicotine dependence CT lung cancer screening Technique: Axial CT images of the chest using low-dose technique. Effective radiation dose: DLP 28.0 mGy. Cm, CTDIvol 1.08 mGy Referring provider counseled the patient on shared decision-making for LDCT screening. Additional counseling was provided on smoking cessation. Comparison: CR/SR - XR CHEST 1 VIEW - 09/17/24 15:[address]/DE/SR - CT LUNG SCREENING - 05/30/24 13:[address]/DE/SR - CT LUNG SCREENING - 05/04/24 12:02 EDT Findings: Lung nodules RUL: 2 mm nodule image 22 previously 3 mm RML: None RLL: None SARAH: Stable 3 mm nodule posteriorly image 32 Lingula: Resolving discoid atelectasis inferior lingula image 97. LLL: None COPD: Mild emphysematous changes. Pleural spaces: Normal. Coronary artery calcifications: Mild with coronary artery stent. Limited upper abdomen: Unremarkable. Other: None. Impression: LungRADS 2 - Benign Appearance: Continue annual screening with low dose Chest CT in 12 months. ##L2## ACR LungRADS Categories Category 1: Normal; continue annual screening Category 2: Benign appearance or behavior, continue annual screening Category 3: Probably benign, [address] recommended Category 4A: Suspicious, [address] recommended; may consider PET/CT Category 4B: Suspicious, Additional diagnostics and/or tissue sampling recommended Category 4X: Suspicious, Additional diagnostics and/or tissue sampling Category 0: Recalls (incomplete screen due to Incomplete coverage, Noise, Respiratory motion, Expiration, Obscured by acute abnormality) This document has been electronically signed by: Kb Tirado MD on 06/04/2025 16:30:20 Dictated By: Kb Tirado MD Signed By: <Electronically signed by Kb Tirado MD in OV> 06/04/25 1631 DD/ 1630 TD/TT: 06/04/25 1630 Exhaust Worker: [facility] External Provider IMG CT PROCEDURES Final Result * POCT Glucose (05/31/2025 1:15 PM EDT) Pathologist [facility] Glucose Blood, POC 193 60 - 200 mg/dL QC Media Lot # [id number] Lot# Expiration Date [id number] Blood Capillary blood specimen / Unknown 05/31/2025 1:15 PM EDT [facility] POINT OF CARE TEST ENTER/EDIT OR DERABLES Final Result * (ABNORMAL) POCT JAMES-14 Urine Drug Screen (05/17/2025 11:28 AM EDT) THC Negative Negative Cocaine Screen, Urine Negative Negative Opiate Screen, Urine Negative Negative Methamphetamine Screen Urine Negative Negative Amphetamine Screen, Urine Negative Negative Benzodiazepines Screen, Urine Positive(A) Negative Barbiturate Screen, Urine Negative Negative Methadone Screen, Urine Negative Negative Buprenophine Screen, Urine Negative Negative TCA, Urine Negative Negative MDMA Urine Negative Negative ng/mL Oxycodone Screen, Urine Negative Negative Phencyclidine (PCP), Urine Negative Negative Propoxyphene, Urine Negative Negative Fentanyl, Urine Negative Negative Urine Urine specimen obtained by clean catch procedure / Unknown 05/17/2025 11:28 AM EDT Narrative Shanelle Miller RN - 05/17/2025 11:28 AM EDT .UTOX cup Lot#[id number] Exp. 08/13/26 Internal Pass Control Neil CALDWELL POINT OF CARE TEST ENTER/EDIT OR DERABLES Final Result * (ABNORMAL) POCT A1C (05/15/2025 11:01 AM EDT) Hemoglobin A1C 8.3(A) 4.0 - 5.7 % QC Media Lot # [id number] Lot# Expiration Date [id number] Blood 05/15/2025 11:0 1 AM EDT us Neil CALDWELL POINT OF CARE TEST ENTER/EDIT OR DERABLES Final Result * Hm Colonoscopy (01/09/2025 8:51 AM EST) [facility] Provider HEALTH MAINTENANCE Final Result * Lipid Panel, Standard (12/17/2024 6:58 AM EST) Triglycerides 58 <150 mg/dL [facility] Comment:Desirable Triglyceri de: less than 150 mg/dLBorderline High Triglyceride 150-199 mg/dLHigh Triglyceride: 200-499 mg/dLVery High Triglyceride: greater than or equal to 5OO mg/dL Cholesterol 106 <200 mg/dL [facility] Comment:Desirable Cholestero l: less than 200 mg/dLBorderline High Cholesterol: 200-239 mg/dLHigh Cholesterol: greater than 239 mg/dL LDL Cholesterol Calculated 45 <100 mg/dL [facility] Comment:Desirable LDL: less than 100 mg/dLNear Optimal/Above Optimal LDL: 110- 129 mg/dLBorderline High LDL: 130-159 mg/dLHigh LDL: 160-189 mg/dLVery High LDL: greater than or equal to 190 mg/dL HDL Cholesterol 50 >40 mg/dL [facility] Comment:Desirable HDL: great er than 40 mg/dL Note: This HDL assay may give artificially low results in patients with liver disease. 12/17/2024 6:58 AM EST 12/17/2024 6:58 AM EST Neil Bernard ANP LAB BLOOD ORDERABLES Final Resul t Performing Organization Address [facility] de Phone Number [facility] [address] [place] [phone] * Albumin, Random Urine W/Creatinine (10/12/2024 9:52 AM EST) Creatinine, Urine 41.64 mg/dL [facility] Microalbumin Urine 6.0 mg/L [facility] Microalbum Creatinine Ratio Ur 14.4 <30 ug/mg cr [facility] Comment:Albumin/Creatinine R atio Reference Ranges: Normal: < 30 ug/mg creatinine Microalbuminuria: 30 - 300 ug/mg creatinineClinical Albuminuria: > 300 ug/mg creatinine Urine (Urine, Random) 10/12/2024 9:52 AM EST 10/12/2024 10:49 AM EST Neil Bernard ANP LAB URINE ORDERABLES Final Resul t Performing Organization Address [facility] Co de Phone Number [facility] [address] [place] [phone] from Last 3 Months or Most Recently Relevant to Health Maintenance [facility] STAND ADULT Care Teams Review Consultant Relationship Specialty Start Date End Date Neil Bernard ANP [address] [place] [phone] PCP - General Family Medicine 07/07/20 Vaishali Minor, PharmD [address] [place] [phone] Pharmacist Internal Medicine 10/29/24 Clarence Perkins Beef PusherErp Developer 06/24/25
--- OUTSIDE RECORDS SUMMARY | 2025-07-23 16:46 | XMS_ITS | Encounter Summary ---
Author Organization [employer] Address [address] [facility] [address]t [place] [address] Care Team Providers Care Co Supervisor Grounds And Landscape Name Role Phone Sepideh Hopkins JAVI Primary Care Provider [phone] Vaishali Minor PharmD Unavailable [phone] Encounter Details Date Type Department Care Team (Latest Contact Info) Description 07/23/2025 Travel Social History Tobacco Use Types Packs/Day [...] is your housing situation today? I have kbsihrley peace 11/18/[address] you [...] t he electric, gas, oil or water [employer] threatened to shut off services in your [...] Description 08/19/2025 11:00 AM EDT Medication Management [address] [address] Vaishali Minor PharmD [address] [place] [phone] 08/30/2025 10:30 AM EDT Clinical Support [address] [address] Shanelle Miller, MENDEL [address] [place] [address] 10/01/2025 9:15 AM EST Office Visit [facility] MEDICINE [address] [place] [phone] Sepideh Hopkins ANP [address] [place] [phone] 01/02/2026 10:00 AM EST Office Visit [facility] ADULT DENTAL [address] [place] [phone] Linsey Dawkins documented as of this encounter Visit Diagnoses Not on filedocumented in this encounter Additional Health Concerns Assessment Noted Time PHQ-9 Depression Total Score: 5 11/23/19 25 1:05 PM EST documented as of this encounter Care Teams Co Supervisor Grounds And Landscape Relationship Specialty Start Date End Date Sepideh Hopkins ANP [address] [place] [phone] PCP - General Family Medicine 07/07/20 Vaishali Minor, Leonidas [address] [place] [phone] Pharmacist Internal Medicine 10/29/24 Clarence Perkins Carbon Dioxide OperatorConstruction Equipment Overhauler 06/24/25 documented as of this encounter
--- OUTSIDE RECORDS SUMMARY | 2025-07-23 16:46 | XMS_ITS | Encounter Summary ---
Author Organization [employer] Address [address] [facility] 7t [place] [address] Care Team Providers Care Testing Coordinator Name Role Phone Sepideh Hopkins Primary Care Provider [phone] Vaishali Minor PharmD Unavailable Reason for Visit * Reason Onset Date Comments nov recall 07/19/2025 Encounter Details Date Type Department Care Team ([facility] st Contact Info) Description 07/19/2025 Telephone [facility] MEDICINE [address] [place] [address] Sepideh Hopkins ANP [address] [place] [address] nov recall Social History Tobacco Use Types Packs/Day [...] encounter Miscellaneous Notes * Telephone Encounter - Jennifer Renteria MA - 07/19/2025 3:43 PM EDT Telephone call to patient to schedule the following recall: Visit type: Follow up Appointment notes: DM Patient agree to appointment on 10/01/25 at 9:15 AM with Sandeep. documented in this encounter Plan of Treatment Upcoming Encounters Date Type Department Care Team ([facility] st Contact Info) Description 08/19/2025 11:00 AM EDT Medication Management [facility] MEDICINE [address] [place] [phone] Vaishali Minor, PharmD [address] [place] [phone] 08/30/2025 10:30 AM EDT Clinical Support [address] [address] Shanelle Miller, MENDEL [address] [place] [address] 10/01/2025 9:15 AM EST Office Visit [address] [address] Sepideh Hopkins ANP [address] [place] [address] 01/02/2026 10:00 AM EST Office Visit [facility] ADULT DENTAL [address] [place] [address] Linsey Dawkins documented as of this encounter Visit Diagnoses Not on filedocumented in this encounter Additional Health Concerns Assessment Noted Time PHQ-9 Depression Total Score: 5 11/23/19 25 1:05 PM EST documented as of this encounter Care Teams Testing Coordinator Relationship Specialty Start Date End Date Sepideh Hopkins ANP [address] [place] [address] PCP - General Family Medicine 07/07/20 Vaishali Minor PharmD [address] [place] [address] Pharmacist Internal Medicine 10/29/24 Clarence Perkins Veterinary AttendantShop And Alteration Tailor 06/24/25 documented as of this encounter
--- OUTSIDE RECORDS SUMMARY | 2025-07-23 16:46 | XMS_ITS | Encounter Summary ---
Author Organization [employer] Address [address] [facility] 7t [place] [address] Care Team Providers Care Sand Sifter Name Role Phone Sepideh Hopkins Primary Care Provider [phone] Vaishali Minor PharmD Unavailable Reason for Visit * Reason Comments Med Refill Encounter Details Date Type Department Care Team ([facility] Contact Info) Description 01/05/[address] [facility] MEDICINE [address] [place] [address] Sepideh Hopkins ANP [address] [place] [address] Social History Tobacco Use Types Packs/Day Years [...] Upcoming Encounters Date Type Department Care Team ([facility] Contact Info) Description 08/19/2025 11:00 AM EDT Medication Management [facility] MEDICINE [address] [place] [address] Vaishali Minor, PharmD [address] [place] [phone] 08/30/2025 10:30 AM EDT Clinical Support [address] [address] Shanelle Miller, RN [address] [place] [address] 10/01/2025 9:15 AM EST Office Visit [facility] MEDICINE [address] [place] [phone] Sepideh Hopkins ANP [address] [place] [phone] 01/02/2026 10:00 AM EST Office Visit [facility] ADULT DENTAL [address] [place] [phone] Linsey Dawkins documented as of this encounter Visit Diagnoses Not on filedocumented in this encounter Care Teams Sand Sifter Relationship Specialty Start Date End Date Sepideh Hopkins ANP [address] [place] [phone] PCP - General Family Medicine 07/07/20 Vaishali Minor, Leonidas [address] [place] [phone] Pharmacist Internal Medicine 10/29/24 Clarence Perkins Hide PasterAd Copy Writer 06/24/25 documented as of this encounter
--- OUTSIDE RECORDS SUMMARY | 2025-07-23 16:46 | XMS_ITS | Encounter Summary ---
Author Organization [employer] Address 75 [facility] 7t [place] [address] Care Team Providers Care Quiller Machine Fixer Name Role Phone Sepideh Hopkins Primary Care Provider [phone] Vaishali Minor PharmD Unavailable Encounter Details Date Type Department Care Team (Late Contact Info) Description 10/03/2023 Orders Only [address] [address] Sepideh Hopkins ANP [address] [place] [address] Social History Tobacco Use Types Packs/Day Years [...] Description 08/19/2025 11:00 AM EDT Medication Management [address] [address] Vaishali Minor, PharmD 230 [place] [address] 08/30/2025 10:30 AM EDT Clinical Support [address] [address] Shanelle Miller, RN 505 [place] [address] 10/01/2025 9:15 AM EST Office Visit [facility] MEDICINE [address] [place] [address] Sepideh Hopkins ANP [address] [place] [address] 01/02/2026 10:00 AM EST Office Visit [facility] ADULT DENTAL [address] [place] [address] Linsey Dawkins documented as of this encounter Visit Diagnoses Not on filedocumented in this encounter Care Teams Quiller Machine Fixer Relationship Specialty Start Date End Date Sepideh Hopkins ANP [address] [place] [address] PCP - General Family Medicine 07/07/20 Vaishali Minor PharmD [address] [place] [address] Pharmacist Internal Medicine 10/29/24 Clarence Perkins Real Estate Sales AssociateCardroom Supervisor 06/24/25 documented as of this encounter
--- OUTSIDE RECORDS SUMMARY | 2025-07-23 16:46 | XMS_ITS | Encounter Summary ---
Author Organization [employer] Address 75 [facility] 7t [place] [address] Care Team Providers Care Lead Burner Helper Name Role Phone Sepideh Hopkins JAVI Primary Care Provider [phone] Vaishali Minor PharmD Unavailable [phone] Encounter Details Date Type Department Care Team ([facility] st Contact Info) Description 07/23/2025 Telephone [facility] MEDICINE 230 [place] [address] Adrianna Hammonds, RN Social History Tobacco Use Types Packs/Day Years [...] encounter Miscellaneous Notes * Telephone Encounter - Adrianna Hammonds RN - 07/23/2025 10:38 AM EDT [facility] with w/o chest pain. Pt reports it started this morning around 7:45 AM. Pt reports that they took their meds and aspirin around 7:45 AM. Pt reports they only had chocolate, cookies, cheese and water for breakfast. Pt reports they did have a heart attack about 13 years ago. Advised pt to let us know if they feel pain when palpating their chest and pt reported they do. Pt deniesheadaches sob, recent illness, injury, blurry vision, nausea and vomiting. Pt denies smoking or drinking alcohol. Pt denies taken any pain medications. Pt reports the pain is locate in the middle of their chest and denies it radiating anywhere else. [facility] ID: Ryan assisted with sudanese translation.EKG performed and given to Dr. Ma for review. HR: 84, O2: 98%, LBP: 115/75, T: 97.8 F, RR: 16. Per [place] request to dial 911, EMS was called and report given upon arrival. Pt was transported to [facility]. documented in this encounter Plan of Treatment Upcoming Encounters Date Type Department Care Team ([facility] st Contact Info) Description 08/19/2025 11:00 AM EDT Medication Management [address] [address] Vaishali Minor PharmD [address] [place] [address] 08/30/2025 10:30 AM EDT Clinical Support [address] [address] Shanelle Miller, RN 505 [place] [address] 10/01/2025 9:15 AM EST Office Visit [address] [address] Sepideh Hopkins ANP [address] [place] [address] 01/02/2026 10:00 AM EST Office Visit [facility] ADULT DENTAL [address] [place] [address] Linsey Dawkins documented as of this encounter Visit Diagnoses Not on filedocumented in this encounter Additional Health Concerns Assessment Noted Time PHQ-9 Depression Total Score: 5 11/23/19 25 1:05 PM EST documented as of this encounter Care Teams Lead Burner Helper Relationship Specialty Start Date End Date Sepideh Hopkins ANP [address] [place] [address] PCP - General Family Medicine 07/07/20 Vaishali Minor, Leonidas [address] [place] [address] Pharmacist Internal Medicine 10/29/24 Clarence Perkins Air Cargo Specialist SupervisorTrouble Lineman 06/24/25 documented as of this encounter
--- OUTSIDE RECORDS SUMMARY | 2025-07-23 16:46 | XMS_ITS | Encounter Summary ---
Author Organization [employer] Address 75 [facility] 7t [place] [address] Care Team Providers Care Supervisor Contact Lens Name Role Phone Sepideh Hopkins ANP Primary Care Provider [phone] Vaishali Minor PharmD Unavailable Encounter Details Date Type Department Care Team (Late st Contact Info) Description 07/19/2025 Orders Only [facility] MEDICINE 230 [place] [address] Sepideh Hopkins ANP 230 [place] [address] Hypomagnesemia (Primary Dx) Social History Tobacco Use Types [...] Description 08/19/2025 11:00 AM EDT Medication Management [address] [address] Vaishali Minor, IrwinD [address] [place] [address] 08/30/2025 10:30 AM EDT Clinical Support [address] [address] Shanelle Miller, RN 505 [place] [address] 10/01/2025 9:15 AM EST Office Visit [address] [address] Sepideh Hopkins ANP [address] [place] [address] 01/02/2026 10:00 AM EST Office Visit [facility] ADULT DENTAL [address] [place] [address] Linsey Dawkins Scheduled Orders Name Type Priority Associated Diagnoses Orde r Schedule Basic Metabolic Panel Lab Routine Hypomagnesemia Expected: 07/19/2025 (Approximate), Expires: 07/19/2026 Magnesium Lab Routine Hypomagnesemia Expected: 07/19/2025, Expires: 07/19/2026 documented as of this encounter Visit Diagnoses Diagnosis Hypomagnesemia- Primary Disorders of magnesium metabolism documented in this encounter Additional Health Concerns Assessment Noted Time PHQ-9 Depression Total Score: 5 11/23/19 25 1:05 PM EST documented as of this encounter Care Teams Supervisor Contact Lens Relationship Specialty Start Date End Date Sepideh Hopkins ANP 230 [place] [address] PCP - General Family Medicine 07/07/20 Vaishali Minor PharmD 230 [place] [address] Pharmacist Internal Medicine 10/29/24 Clarence Perkins Ware FinisherReal Time Trader 06/24/25 documented as of this encounter
--- OUTSIDE RECORDS SUMMARY | 2025-07-23 16:46 | XMS_ITS | Encounter Summary ---
Author Organization [employer] Address 75 [facility] 7t [place] [address] Care Team Providers Care Refrigeration Plant Operator Name Role Phone Sepideh Hopkins JAVI Primary Care Provider [phone] Vaishali Minor PharmD Unavailable [phone] Reason for Visit * Reason Onset Date Comments Dr. Angeles case delivery 07/03/2025 Encounter Details Date Type Department Care Team ([facility] st Contact Info) Description 07/03/2025 Telephone [facility] ADULT DENTAL 230 [place] [address] Everett Angeles, DMD [address] [place] [address] Dr. Angeles case delivery Social History Tobacco Use Types Packs/Day Years [...] * Telephone Encounter - Noa Arauz - 07/03/2025 8:48 AM EDT Patient was waiting for a call yesterday to confirm when she can come in today for delivery. Dr. Angeles was not in office yesterday therefore net front end developer is waiting to see him today to confirm how provider would likke to schedule patient. desktop support manager will reach out to patient to schedule. documented in this encounter Plan of Treatment Upcoming Encounters Date Type Department Care Team (Late st Contact Info) Description 08/19/2025 11:00 AM EDT Medication Management [facility] MEDICINE [address] [place] [address] Vaishali Minor, PharmD 230 [place] [address] 08/30/2025 10:30 AM EDT Clinical Support [facility] MEDICINE [address] [place] [address] Shanelle Miller RN 505 [place] [address] 10/01/2025 9:15 AM EST Office Visit [facility] MEDICINE [address] [place] [address] Sepideh Hopkins ANP 230 [place] [address] 01/02/2026 10:00 AM EST Office Visit [facility] ADULT DENTAL 230 [place] [address] Linsey Dawkins documented as of this encounter Visit Diagnoses Not on filedocumented in this encounter Additional Health Concerns Assessment Noted Time PHQ-9 Depression Total Score: 5 11/23/19 25 1:05 PM EST documented as of this encounter Care Teams Refrigeration Plant Operator Relationship Specialty Start Date End Date Sepideh Hopkins ANP [address] [place] [address] PCP - General Family Medicine 07/07/20 Vaishali Minor, IrwinD [address] [place] [address] Pharmacist Internal Medicine 10/29/24 Clarence Perkins Neurological PhysiotherapistLime Puller 06/24/25 documented as of this encounter
--- OUTSIDE RECORDS SUMMARY | 2025-07-23 16:46 | XMS_ITS | Encounter Summary ---
Author Organization [employer] Address 75 [facility] 7t [place] [address] Care Team Providers Care Revenue Manager Name Role Phone Sepideh Hopkins Primary Care Provider [phone] Vaishali Minor PharmD Unavailable [phone] Reason for Visit * Reason Comments Med Refill Encounter Details Date Type Department Care Team ([facility] st Contact Info) Description 06/22/2024 Refill [facility] MEDICINE 230 [place], [place] [phone] Sepideh Hopkins ANP 230 [place] [address] Social History Tobacco Use Types Packs/Day Years [...] Description 08/19/2025 11:00 AM EDT Medication Management [facility] MEDICINE [address] [place] [address] Vaishali Minor PharmD [address] [place] [address] 08/30/2025 10:30 AM EDT Clinical Support [address] [address] Shanelle Miller, RN 505 [place] [address] 10/01/2025 9:15 AM EST Office Visit [facility] MEDICINE [address] [place] [address] Sepideh Hopkins ANP [address] [place] [address] 01/02/2026 10:00 AM EST Office Visit [facility] ADULT DENTAL [address] [place] [address] Linsey Dawkins documented as of this encounter Visit Diagnoses Not on filedocumented in this encounter Care Teams Revenue Manager Relationship Specialty Start Date End Date Sepideh Hopkins ANP [address] [place] [address] PCP - General Family Medicine 07/07/20 Vaishali Minor PharmD [address] [place] [address] Pharmacist Internal Medicine 10/29/24 Clarence Perkins Family And Consumer Science ProfessorAccount Solutions Analyst 06/24/25 documented as of this encounter
--- OUTSIDE RECORDS SUMMARY | 2025-07-23 16:46 | XMS_ITS | Encounter Summary ---
Author Organization [employer] Address 75 [facility] 7t [place] [address] Care Team Providers Care Ski Patroller Name Role Phone Sepideh Hopkins JAVI Primary Care Provider [phone] Vaishali Minor PharmD Unavailable Reason for Visit * Reason Onset Date Comments Appointment 12/08/2022 Patient called i n inquiring about RCT appt with Pasquale. Encounter Details Date Type Department Care Team ([facility] Contact Info) Description 12/08/2022 Telephone [facility] ADULT DENTAL [address] [place], [place] [phone] Gregorio Giordano, ANNIES 505 [place], [place] [phone] Appointment (Patient called in inquiring about RCT [...] Description 08/19/2025 11:00 AM EDT Medication Management [address] [address] Vaishali Minor PharmD [address] [place] [address] 08/30/2025 10:30 AM EDT Clinical Support [address] [address] Shanelle Miller, RN 505 [place] [address] 10/01/2025 9:15 AM EST Office Visit [facility] MEDICINE [address] [place] [address] Sepideh Hopkins ANP [address] [place] [address] 01/02/2026 10:00 AM EST Office Visit [facility] ADULT DENTAL [address] [place] [address] Linsey Dawkins documented as of this encounter Visit Diagnoses Not on filedocumented in this encounter Care Teams Ski Patroller Relationship Specialty Start Date End Date Sepideh Hopkins ANP [address] [place] [address] PCP - General Family Medicine 07/07/20 Vaishali Minor PharmD [address] [place] [address] Pharmacist Internal Medicine 10/29/24 Clarence Perkins Automotive Shop ForemanSteam Box Hand 06/24/25 documented as of this encounter
--- OUTSIDE RECORDS SUMMARY | 2025-07-23 16:46 | XMS_ITS | Encounter Summary ---
Author Organization [employer] Address 75 [facility] 7t [place] [address] Care Team Providers Care Ophthalmic Aide Name Role Phone Sepideh Hopkins JAVI Primary Care Provider [phone] Vaishali Minor PharmD Unavailable [phone] Encounter Details Date Type Department Care Team (Latest Contact Info) Description 07/22/2025 Travel Social History Tobacco Use Types Packs/Day [...] t he electric, gas, oil or water [employer] threatened to shut off services in your [...] Description 08/19/2025 11:00 AM EDT Medication Management [address] [address] Vaishali Minor PharmD [address] [place] [address] 08/30/2025 10:30 AM EDT Clinical Support [address] [address] Shanelle Miller, MENDEL 505 [place] [address] 10/01/2025 9:15 AM EST Office Visit [facility] MEDICINE [address] [place] [address] Sepideh Hopkins ANP [address] [place] [address] 01/02/2026 10:00 AM EST Office Visit [facility] ADULT DENTAL [address] [place] [address] Linsey Dawkins documented as of this encounter Visit Diagnoses Not on filedocumented in this encounter Additional Health Concerns Assessment Noted Time PHQ-9 Depression Total Score: 5 11/23/19 25 1:05 PM EST documented as of this encounter Care Teams Ophthalmic Aide Relationship Specialty Start Date End Date Sepideh Hopkins ANP [address] [place] [address] PCP - General Family Medicine 07/07/20 Vaishali Minor, Leonidas [address] [place] [address] Pharmacist Internal Medicine 10/29/24 Clarence Perkins Jawbone PullerSewage Plant Operator 06/24/25 documented as of this encounter
--- OUTSIDE RECORDS SUMMARY | 2025-07-23 16:46 | XMS_ITS | Encounter Summary ---
Author Organization [employer] Address 75 [facility] 7t [place] [address] Care Team Providers Care Wet End Supervisor Name Role Phone Sepideh Hopkins Primary Care Provider [phone] Vaishali Minor PharmD Unavailable [phone] Reason for Visit * Reason Comments Med Refill Encounter Details Date Type Department Care Team ([facility] st Contact Info) Description 02/27/2024 Refill [facility] MEDICINE 230 [place], [place] [phone] Sepideh Hopkins ANP 230 [place] [address] Social History Tobacco Use Types Packs/Day Years [...] 08/19/2025 11:00 AM EDT Medication Management [facility] MEDICINE [address] [place] [address] Vaishali Minor PharmD [address] [place] [address] 08/30/2025 10:30 AM EDT Clinical Support [address] [address] Shanelle Miller, RN 505 [place] [address] 10/01/2025 9:15 AM EST Office Visit [facility] MEDICINE [address] [place] [address] Sepideh Hopkins ANP [address] [place] [address] 01/02/2026 10:00 AM EST Office Visit [facility] ADULT DENTAL [address] [place] [address] Linsey Dawkins documented as of this encounter Visit Diagnoses Not on filedocumented in this encounter Care Teams Wet End Supervisor Relationship Specialty Start Date End Date Sepideh Hopkins ANP [address] [place] [address] PCP - General Family Medicine 07/07/20 Vaishali Minor PharmD [address] [place] [address] Pharmacist Internal Medicine 10/29/24 Clarence Perkins Zipper Setter LockstitchBingo Floater 06/24/25 documented as of this encounter
--- OUTSIDE RECORDS SUMMARY | 2025-07-23 16:46 | XMS_ITS | Encounter Summary ---
Author Organization [employer] Address 75 [facility] 7t [place] [address] Care Team Providers Care Dehydrogenation Operator Head Name Role Phone Sepideh Hopkins Primary Care Provider [phone] Vaishali Minor PharmD Unavailable [phone] Encounter Details Date Type Department Care Team ([facility] st Contact Info) Description 07/19/2025 Results Follow-Up [facility] MEDICINE [address] [place] [address] Sepideh Hopkins ANP 230 [place] [address] Culture, Urine, Routine Social History Tobacco Use Types Packs/Day Years [...] Result Encounter Note - JAVI Hill - 07/19/2025 8:47 AM EDT Normal test documented in this encounter Plan of Treatment Upcoming Encounters Date Type Department Care Team (Late st Contact Info) Description 08/19/2025 11:00 AM EDT Medication Management [address] [address] Vaishali Minor, PharmD [address] [place] [address] 08/30/2025 10:30 AM EDT Clinical Support [address] [address] Shanelle Miller RN 505 [place] [address] 10/01/2025 9:15 AM EST Office Visit [address] [address] Sepideh Hopkins ANP [address] [place] [address] 01/02/2026 10:00 AM EST Office Visit [facility] ADULT DENTAL [address] [place] [address] Linsey Dawkins documented as of this encounter Visit Diagnoses Not on filedocumented in this encounter Additional Health Concerns Assessment Noted Time PHQ-9 Depression Total Score: 5 11/23/19 25 1:05 PM EST documented as of this encounter Care Teams Dehydrogenation Operator Head Relationship Specialty Start Date End Date Sepideh Hopkins ANP 230 [place] [address] PCP - General Family Medicine 07/07/20 Vaishali Minor, Leonidas 230 [place] [address] Pharmacist Internal Medicine 10/29/24 Clarence Perkins Human Machine Interface EngineerLeather Heel Breaster 06/24/25 documented as of this encounter
--- OUTSIDE RECORDS SUMMARY | 2025-07-23 16:46 | XMS_ITS | Encounter Summary ---
Author Organization [employer] Address 75 [facility] 7t [place] [address] Care Team Providers Care Front Desk Host Name Role Phone Sepideh Hopkins Primary Care Provider [phone] Vaishali Minor PharmD Unavailable [phone] Reason for Visit * Reason Comments Med Refill Encounter Details Date Type Department Care Team ([facility] st Contact Info) Description 05/23/2025 Refill [facility] MEDICINE 230 [place], [place] [phone] Sepideh Hopkins ANP 230 [place] [address] History of pulmonary embolism; Diabetic polyneuropathy associated with type 2 diabetes mellitus (CMS/HCC) Social History Tobacco Use Types Packs/Day Years [...] Description 08/19/2025 11:00 AM EDT Medication Management [facility] MEDICINE [address] [place] [address] Vaishali Minor, Leonidas [address] [place] [address] 08/30/2025 10:30 AM EDT Clinical Support [facility] MEDICINE [address] [place] [address] Shanelle Miller, MENDEL 505 [place] [address] 10/01/2025 9:15 AM EST Office Visit [facility] MEDICINE [address] [place] [address] Sepideh Hopkins ANP [address] [place] [address] 01/02/2026 10:00 AM EST Office Visit [facility] ADULT DENTAL [address] [place] [address] Linsey Dawkins documented as of this encounter Visit Diagnoses Diagnosis History of pulmonary embolism Personal history of venous thrombosis and embolism Diabetic polyneuropathy associated with type 2 diabetes mellitus (CMS/HCC) documented in this encounter Additional Health Concerns Assessment Noted Time PHQ-9 Depression Total Score: 5 11/23/19 25 1:05 PM EST documented as of this encounter Care Teams Front Desk Host Relationship Specialty Start Date End Date Sepideh Hopkins ANP 230 [place] [address] PCP - General Family Medicine 07/07/20 Vaishali Minor PharmD 230 [place] [address] Pharmacist Internal Medicine 10/29/24 Clarence Perkins Value EngineerIndustrial Relations Representative 06/24/25 documented as of this encounter
--- OUTSIDE RECORDS SUMMARY | 2025-07-23 16:46 | XMS_ITS | Encounter Summary ---
Author Organization [employer] Address 75 [facility] 7t [place] [address] Care Team Providers Care Grid Inspector Name Role Phone Sepideh Hopkins Primary Care Provider [phone] Vaishali Minor PharmD Unavailable Reason for Visit * Reason Comments Med Refill Encounter Details Date Type Department Care Team ([facility] st Contact Info) Description 06/27/2025 Refill [facility] MED & PEDS [address] [place], [place] [phone] Sepideh Hopkins ANP [address] [facility] [place] [address] Chronic bilateral low back pain without sciatica [...] Description 08/19/2025 11:00 AM EDT Medication Management [facility] MEDICINE [address] [place] [address] Vaishali Minor, IrwinD [address] [place] [address] 08/30/2025 10:30 AM EDT Clinical Support [address] [address] Shanelle Miller RN 505 [place] [address] 10/01/2025 9:15 AM EST Office Visit [facility] MEDICINE [address] [place] [address] Sepideh Hopkins ANP [address] [place] [address] 01/02/2026 10:00 AM EST Office Visit [facility] ADULT DENTAL [address] [place] [address] Linsey Dawkins documented as of this encounter Visit Diagnoses Diagnosis Chronic bilateral low back pain without sciatica documented in this encounter Additional Health Concerns Assessment Noted Time PHQ-9 Depression Total Score: 5 11/23/19 25 1:05 PM EST documented as of this encounter Care Teams Grid Inspector Relationship Specialty Start Date End Date Sepideh Hopkins ANP [address] [place] [address] PCP - General Family Medicine 07/07/20 Vaishali Minor PharmD [address] [place] [address] Pharmacist Internal Medicine 10/29/24 Clarence Perkins Machine Binding FolderGround Service Equipment Mechanic 06/24/25 documented as of this encounter
--- NOTE | 2025-07-23 17:50 | PC.NURSE ---
Pharmacy reached out regarding asking family to bring the following meds in: Acarbose 100mg, Bupropion SR 100mg. Pt daughter Rossana contacted at [phone], sts she will bring them in [place].
[2025-07-23 17:52] VITALS: BP 130/69; PULSE 69; RESP 19; O2SAT 97
[2025-07-23 20:36] VITALS: BP 115/70; PULSE 76; RESP 17; TEMP 35.9; O2SAT 98; BMI 28.1
[2025-07-23] MEDS: Metoprolol Succinate ER 50 MG TAB.ER.24H PO (21:01)
[2025-07-23 21:12] LABS: Glucose, Whole Blood 259 mg/dL (60-115)
--- NOTE | 2025-07-23 21:21 | ECG_ITS ---
Test Reason : chest pain Blood Pressure : */* mmHG Vent. Rate : 72 BPM Atrial Rate : 72 BPM P-R Int : 144 ms QRS Dur : 82 ms QT Int : 360 ms P-R-T Axes : 63 43 65 degrees QTcB Int : 394 ms Normal sinus rhythm with sinus arrhythmia Nonspecific ST and T wave abnormality Abnormal ECG When compared with ECG of 23-Jul-2025 11:45, No significant change was found Referred By: Susi Barker Electronically Signed By: NACHO DOE
[2025-07-23 23:13] LABS: Troponin-I High Sensitivity 3.0 ng/L (<3.5-17.0)
[2025-07-24] VITALS: BP 104/59; PULSE 73; RESP 17; TEMP 36.2; O2SAT 96
--- NOTE | 2025-07-24 00:01 | PC.NURSE ---
Patient arrived to floor from ED, carpet cleaning technician at bedside for admission assessment. Patient C/O intermittent chest heaviness . EKG done, MD notified. New order for repeat troponin, cardiology consult pending.
[2025-07-24 03:49] VITALS: BP 174/60; PULSE 68; RESP 16; TEMP 36.6; O2SAT 96
[2025-07-24 06:28] LABS: Hematocrit 37.7 % (37.0-47.0); Hemoglobin 13.3 g/dl (12.0-16.0); Mean Corpuscular HGB Conc 35.3 g/dl (31.0-35.0); Mean Corpuscular Hemoglobin 28.4 pg (27.0-33.0); Mean Corpuscular Volume 80.6 fL (80.0-98.0); NRBC Abs Auto 0.000 X10*3/uL (0.0-0.012); NRBC Pct Auto 0.0 /100WBC (0.0-0.2); Platelet Count 312 X10*3/uL (160-400); Red Blood Count 4.68 X10*6/uL (4.20-5.50); White Blood Count 6.9 X10*3/uL (4.8-10.8)
[2025-07-24 06:43] LABS: Anion Gap 11 (12-20); Blood Urea Nitrogen 16 mg/dL (9-16); Calcium 10.1 mg/dL (8.4-10.2); Carbon Dioxide 26 mmol/L (22-29); Chloride 109 mmol/L (96-108); Creatinine Clr Calc Pharmacy 41.6; Estimated Glomerular Filt Rate 45; Potassium 4.8 mmol/L (3.3-5.1); Sodium 141 mmol/L (135-145)
[2025-07-24 07:56] VITALS: BP 120/78; PULSE 76; RESP 18; TEMP 36.3; O2SAT 96
[2025-07-24 07:57] LABS: Glucose, Whole Blood 166 mg/dL (60-115)
[2025-07-24] MEDS: 0.9 % Sodium Chloride Flush 3 ML SYRINGE IVFLUSH (08:02)
[2025-07-24 08:03] VITALS: BP 120/78; PULSE 76
[2025-07-24] MEDS: Insulin Glargine,Hum.rec.anlog 100 UNIT/ML 10 ML VIAL 30 UNIT SUBCUT (08:03)
[2025-07-24] MEDS: Metoprolol Succinate ER 50 MG TAB.ER.24H PO (08:03)
[2025-07-24] MEDS: BUPROPION HCL 100 MG 100 EACH PO (08:18)
--- NOTE | 2025-07-24 08:45 | HO.PM.IMPN ---
Subjective Subjective Date of Service: 07/24/25 Physical Exam Vital Signs: Vital Signs: Last Vital Signs Temp 97.4 F 07/24/25 07:56 Pulse 76 07/24/25 08:03 Resp 18 07/24/25 07:56 BP 120/78 07/24/25 08:03 Pulse Ox 96 07/24/25 07:56 O2 Del Method Room Air 07/24/25 07:56 BMI result Body Mass Index 28.1 Objective Data Active Medications Acetaminophen (Acetaminophen 325 Mg Tablet) 650 mg PO Q6H PRN PRN Reason: Pain, Mild 1-3,fever,headache Albuterol Sulfate (Albuterol Sulfate (0.083%) 2.5 Mg/3 Ml Vial.Neb) 2.5 mg INHALE Q6H PRN PRN Reason: Wheezing Albuterol Sulfate (Albuterol Sulfate 90 Mcg 8 Gm Inhaler) 2 puff INHALE Q4H PRN PRN Reason: Shortness Of Breath Or Wheezing Apixaban (Apixaban 2.5 Mg Tablet) 2.5 mg PO BID [facility] Last Admin: 07/24/25 08:03 Dose: 2.5 mg Documented By: CARLYN Aspirin (Aspirin 81 Mg Tab.Chew) 81 mg PO DAILY [facility] Last Admin: 07/24/25 08:03 Dose: 81 mg Documented By: CARLYN Atorvastatin Calcium (Atorvastatin Calcium 40 Mg Tablet) 40 mg PO BEDTIME [facility] Last Admin: 07/23/25 21:01 Dose: 40 mg Documented By: MADYSON Calcium Carbonate (Calcium Carbonate 750 Mg Tab.Chew) 750 mg PO Q4H PRN PRN Reason: Heartburn Docusate Sodium (Docusate Sodium 100 Mg Capsule) 100 mg PO DAILY [facility] Last Admin: 07/24/25 08:03 Dose: 100 mg Documented By: CARLYN Famotidine (Famotidine 20 Mg Tablet) 40 mg PO BEDTIME [facility] Last Admin: 07/23/25 21:01 Dose: 40 mg Documented By: MADYSON Fluticasone Propionate (Fluticasone Propionate Nasal 16 Gm [place]) 1 spray NOSTRIL-B BID [facility] Last Admin: 07/24/25 08:13 Dose: Not Given Documented By: CARLYN Non-Admin Reason: waiting for pharmacy to bring med Gabapentin (Gabapentin 300 Mg Capsule) 600 mg PO TID [facility] Last Admin: 07/24/25 08:03 Dose: 600 mg Documented By: CARLYN Insulin Glargine (Insulin Glargine,Hum.Rec.Anlog 100 Unit/Ml 10 Ml Vial) 30 unit SUBCUT DAILY [facility] Last Admin: 07/24/25 08:03 Dose: 30 unit Documented By: CARLYN Loratadine (Loratadine 10 Mg Tablet) 10 mg PO DAILY [facility] Last Admin: 07/24/25 08:03 Dose: 10 mg Documented By: CARLYN Lorazepam (Lorazepam 0.5 Mg Tablet) 0.5 mg PO BID PRN PRN Reason: Anxiety Magnesium Hydroxide (Milk Of Magnesia 30 Ml Oral.Susp) 30 ml PO DAILY PRN PRN Reason: Constipation Magnesium Oxide (Magnesium Oxide 400 Mg Tablet) 400 mg PO DAILY [facility] Last Admin: 07/24/25 08:03 Dose: 400 mg Documented By: CARLYN Melatonin (Melatonin 3 Mg Tablet) 6 mg PO BEDTIME PRN PRN Reason: Insomnia Metoprolol Succinate (Metoprolol Succinate Er 50 Mg Tab.Er.24h) 50 mg PO BID [facility]; Protocol Last Admin: 07/24/25 08:03 Dose: 50 mg Documented By: CARLYN Morphine Sulfate (Morphine Sulfate 2 Mg/Ml Cartridge) 2 mg IVPUSH Q6H PRN; Protocol PRN Reason: Pain, Severe (Pain Scale 7-10) Non-Formulary Medication (Acarbose) 100 mg PO TID [facility] Pt Own (Bupropion Hcl 100 Mg Tablet Sustained-Release 12 Hr) 100 mg PO DAILY [facility] Last Admin: 07/24/25 08:18 Dose: 100 mg Documented By: CARLYN Omeprazole (Omeprazole 20 Mg Capsule.Dr) 20 mg PO DAILY@0630 [facility] Last Admin: 07/24/25 06:14 Dose: 20 mg Documented By: LAURA Ondansetron HCl (Ondansetron Hcl 4 Mg/2 Ml Vial) 4 mg IVPUSH Q8H PRN PRN Reason: Nausea and Vomiting Oxycodone HCl (Oxycodone Hcl Immed Release 5 Mg Tablet) 5 mg PO Q6H PRN PRN Reason: Pain, Moderate(Pain Scale 4-6) Sertraline HCl (Sertraline Hcl 100 Mg Tablet) 200 mg PO BEDTIME [facility] Last Admin: 07/23/25 21:01 Dose: 200 mg Documented By: MADYSON Sodium Chloride (0.9 % Sodium Chloride Flush 3 Ml Syringe) 3 ml IVFLUSH QSHIFT [facility] Last Admin: 07/24/25 08:02 Dose: 3 ml Documented By: CARLYN Vitamin D (Cholecalciferol (Vitamin D3) 25 Mcg Tablet) 50 mcg PO DAILY [facility] Last Admin: 07/24/25 08:03 Dose: 50 mcg Documented By: CARLYN Zolpidem Tartrate (Zolpidem Tartrate 5 Mg Tablet) 10 mg PO BEDTIME PRN PRN Reason: Insomnia Last Admin: 07/23/25 21:03 Dose: 10 mg Documented By: MADYSON Labs 07/24/25 06:10 07/24/25 06:10 Labs: Laboratory Results - last 24 hr 07/23/25 07/23/25 07/23/25 12:14 21:08 22:51 MCV 82.3 MCH 28.4 MCHC 34.5 RDW 13.2 Plt Count 262 MPV 11.4 Immature Gran % (Auto) 0.3 Neut % (Auto) 58.3 Lymph % (Auto) 31.5 [place] % (Auto) 7.3 Eos % (Auto) 1.7 Baso % (Auto) 0.9 Lymph # (Auto) 2.2 [place] # (Auto) 0.5 Eos # (Auto) 0.1 Baso # (Auto) 0.1 Abs Immat Gran (auto) 0.02 Absolute Neuts (auto) 4.1 Absolute Nucleated RBC 0.000 Nucleated RBC % (auto) 0.0 Anion Gap 11 L Estim Creat Clear Calc 46.2 Estimated GFR 50 POC Glucose 259 H Random Glucose 186 H Calcium 10.4 H Total Bilirubin 0.3 AST 19 ALT 20 Alkaline Phosphatase 103 Troponin I High Sens < 2.7 3.0 Total Protein 7.0 Albumin 4.8 07/24/25 07/24/25 06:10 07:53 MCV 80.6 MCH 28.4 MCHC 35.3 H RDW 13.2 Plt Count 312 MPV 10.9 Immature Gran % (Auto) Neut % (Auto) Lymph % (Auto) [place] % (Auto) Eos % (Auto) Baso % (Auto) Lymph # (Auto) [place] # (Auto) Eos # (Auto) Baso # (Auto) Abs Immat Gran (auto) Absolute Neuts (auto) Absolute Nucleated RBC 0.000 Nucleated RBC % (auto) 0.0 Anion Gap 11 L Estim Creat Clear Calc 41.6 Estimated GFR 45 POC Glucose 166 H Random Glucose 165 H Calcium 10.1 Total Bilirubin AST ALT Alkaline Phosphatase Troponin I High Sens Total Protein Albumin Quality Stroke Does the patient have a stroke diagnosis?: No VTE Prior VTE?: No VTE Risk Level:: Medical - moderate - high VTE Device Contraindication: Treatment Not Indicated VTE Drug Contraindication: N/A - Med Ordered
--- NOTE | 2025-07-24 09:33 | PM.CNCAR ---
History of Present Illness History of Present Illness Date of Service: 07/24/25 Chief complaint: unstable angina Narrative: This is a cardiology consultation regarding chest pain. Last seen by me in clinic few weeks back. History of coronary artery disease and she underwent LAD stent in 2012. Otherwise, she has generally been stable. Multiple risk factors including diabetes, dyslipidemia and she is on polypharmacy. Couple of days ago, she was walking and all of a sudden she developed a discomfort in the substernal area and she had to stop. It happened a few occasions and then the health center gave her aspirin and send her to the hospital. Otherwise, she has been okay since she came in. EKGs not showing any acute changes and troponins are unremarkable. However, because of the way she describes exertional type chest pains she was admitted. Review of Systems Review of Systems: Yes all other systems are reviewed and are negative Constitutional: Constitutional: Reports as per HPI and Reports no additional constitutional complaints Eyes: Eyes: Reports as per HPI and Denies no additional eye complaints ENT: Denies system reviewed and no additional complaints, except as documented and Reports as per HPI Cardiovascular: Cardiovascular: Reports as per HPI, Reports no additional cardiovascular complaints, Denies acrocyanosis, Denies cool extremities, Denies chest pain, Denies leg edema, Denies lightheadedness, Denies palpitations and Denies dyspnea Respiratory: Respiratory: Reports as per HPI, Denies no additional respiratory complaints and Denies dyspnea Gastrointestinal: Gastrointestinal: Reports as per HPI and Denies no additional gastrointestinal complaints Genitourinary: Genitourinary: Reports as per HPI Musculoskeletal: Musculoskeletal: Reports no additional musculoskeletal complaints and Reports as per HPI Integumentary/Breasts: Skin/Breast: Reports system reviewed and no additional complaints, except as docu Neurologic: Reports system reviewed and no additional complaints, except as documented and Reports as per HPI Psychiatric: Psychiatric: Reports no additional psychiatric complaints and Reports as per HPI Endocrine: Endocrine: Reports no additional endocrine complaints, Reports as per HPI and Denies palpitations Hematologic/Lymphatic: Hematologic/Lymphatic: Reports no additional hematologic/lymphatic complaints and Reports as per HPI Allergic/Immunologic: Allergic/Immunologic: Reports no additional allergic/immunologic complaints and Reports as per HPI [facility] Past Medical History Medical History Asthma Depression Anxiety Dizziness Headache Hx pulmonary embolism (~2017) Personal history of nicotine dependence History of colon polyps Osteophyte of cervical spine Stented coronary artery (~2012) Elevated LFTs CAD (coronary artery disease) Dyslipidemia Hypertension Diabetic polyneuropathy associated with type 2 diabetes mellitus custodial (current) 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) Alcohol intake: never Patient Tobacco Use Status: Current everyday Tobacco user Tobacco use type: Cigarette Years Smoked: (onset 19yo, 1ppd x 42yrs, 40pyh - quit 2021) Smoked in Last 30 Days: Yes e-Cigarette/Vaping Use: Never Used Patient Interested in Nicotine Replacement: No Patient Given Instructions on How to Stop Smoking: No Second Hand Smoke Exposure: No Use of substances other than those prescribed or required for medical reasons: No Currently Displaying Signs/Symptoms of Drug Intoxication Withdrawal: No Have you been hit, kicked, punched, or otherwise hurt by someone within the past year? If so, by whom?: No Do you feel safe in your current relationship?: No Current Relationship Is there a partner from a previous relationship who is making you feel unsafe now?: No Are you made to feel afraid or neglected: No Spiritual Healthcare Practices: oriental orthodox Advance Directives: No Advance Directives Information Provided: Yes Do you have a plan to hurt others: No Plan Recently lost weight without trying: No How much weight loss: Not applicable Eating poorly because of decreased appetite: No Nutrition screen score: 0 Patient : No : No Poor oral hygiene: No Meds Allergies Allergy/AdvReac Type Severity Reaction Status Date / Time No Known Allergies Allergy Verified 07/23/25 11:43 Active Medications: Current Medications Acetaminophen (Acetaminophen 325 Mg Tablet) 650 mg PO Q6H PRN PRN Reason: Pain, Mild 1-3,fever,headache Albuterol Sulfate (Albuterol Sulfate (0.083%) 2.5 Mg/3 Ml Vial.Neb) 2.5 mg INHALE Q6H PRN PRN Reason: Wheezing Albuterol Sulfate (Albuterol Sulfate 90 Mcg 8 Gm Inhaler) 2 puff INHALE Q4H PRN PRN Reason: Shortness Of Breath Or Wheezing Apixaban (Apixaban 2.5 Mg Tablet) 2.5 mg PO BID [facility] Last Admin: 07/24/25 08:03 Dose: 2.5 mg Aspirin (Aspirin 81 Mg Tab.Chew) 81 mg PO DAILY [facility] Last Admin: 07/24/25 08:03 Dose: 81 mg Atorvastatin Calcium (Atorvastatin Calcium 40 Mg Tablet) 40 mg PO BEDTIME [facility] Last Admin: 07/23/25 21:01 Dose: 40 mg Calcium Carbonate (Calcium Carbonate 750 Mg Tab.Chew) 750 mg PO Q4H PRN PRN Reason: Heartburn Docusate Sodium (Docusate Sodium 100 Mg Capsule) 100 mg PO DAILY [facility] Last Admin: 07/24/25 08:03 Dose: 100 mg Famotidine (Famotidine 20 Mg Tablet) 40 mg PO BEDTIME [facility] Last Admin: 07/23/25 21:01 Dose: 40 mg Fluticasone Propionate (Fluticasone Propionate Nasal 16 Gm [place]) 1 spray NOSTRIL-B BID [facility] Last Admin: 07/24/25 08:13 Dose: Not Given Gabapentin (Gabapentin 300 Mg Capsule) 600 mg PO TID [facility] Last Admin: 07/24/25 08:03 Dose: 600 mg Insulin Glargine (Insulin Glargine,Hum.Rec.Anlog 100 Unit/Ml 10 Ml Vial) 30 unit SUBCUT DAILY [facility] Last Admin: 07/24/25 08:03 Dose: 30 unit Loratadine (Loratadine 10 Mg Tablet) 10 mg PO DAILY [facility] Last Admin: 07/24/25 08:03 Dose: 10 mg Lorazepam (Lorazepam 0.5 Mg Tablet) 0.5 mg PO BID PRN PRN Reason: Anxiety Magnesium Hydroxide (Milk Of Magnesia 30 Ml Oral.Susp) 30 ml PO DAILY PRN PRN Reason: Constipation Magnesium Oxide (Magnesium Oxide 400 Mg Tablet) 400 mg PO DAILY [facility] Last Admin: 07/24/25 08:03 Dose: 400 mg Melatonin (Melatonin 3 Mg Tablet) 6 mg PO BEDTIME PRN PRN Reason: Insomnia Metoprolol Succinate (Metoprolol Succinate Er 50 Mg Tab.Er.24h) 50 mg PO BID [facility]; Protocol Last Admin: 07/24/25 08:03 Dose: 50 mg Morphine Sulfate (Morphine Sulfate 2 Mg/Ml Cartridge) 2 mg IVPUSH Q6H PRN; Protocol PRN Reason: Pain, Severe (Pain Scale 7-10) Non-Formulary Medication (Acarbose) 100 mg PO TID [facility] Pt Own (Bupropion Hcl 100 Mg Tablet Sustained-Release 12 Hr) 100 mg PO DAILY [facility] Last Admin: 07/24/25 08:18 Dose: 100 mg Omeprazole (Omeprazole 20 Mg Capsule.Dr) 20 mg PO DAILY@0630 [facility] Last Admin: 07/24/25 06:14 Dose: 20 mg Ondansetron HCl (Ondansetron Hcl 4 Mg/2 Ml Vial) 4 mg IVPUSH Q8H PRN PRN Reason: Nausea and Vomiting Oxycodone HCl (Oxycodone Hcl Immed Release 5 Mg Tablet) 5 mg PO Q6H PRN PRN Reason: Pain, Moderate(Pain Scale 4-6) Sertraline HCl (Sertraline Hcl 100 Mg Tablet) 200 mg PO BEDTIME [facility] Last Admin: 07/23/25 21:01 Dose: 200 mg Sodium Chloride (0.9 % Sodium Chloride Flush 3 Ml Syringe) 3 ml IVFLUSH QSHIFT [facility] Last Admin: 07/24/25 08:02 Dose: 3 ml Vitamin D (Cholecalciferol (Vitamin D3) 25 Mcg Tablet) 50 mcg PO DAILY [facility] Last Admin: 07/24/25 08:03 Dose: 50 mcg Zolpidem Tartrate (Zolpidem Tartrate 5 Mg Tablet) 10 mg PO BEDTIME PRN PRN Reason: Insomnia Last Admin: 07/23/25 21:03 Dose: 10 mg Home Medications ?Medication ?Instructions ?Recorded ?Confirmed ?Last Taken ?Type albuterol sulfate 90 mcg/actuation 2 puff inhalation Q4-6H PRN 08/26/20 07/23/25 07/23/25 09:00 History aerosol inhaler (ProAir HFA) Shortness Of Breath Or Wheezing blood-glucose meter (FreeStyle 08/26/20 06/20/25 Unknown History Lite Meter kit) budesonide-formoterol HFA 160 2 puff inhalation BID 08/26/20 07/23/25 07/23/25 09:00 History mcg-4.5 mcg/actuation aerosol inhaler sertraline 100 mg tablet (Zoloft) 200 mg PO BEDTIME 08/26/20 07/23/25 07/23/25 09:00 History apixaban 2.5 mg tablet (Eliquis) 2.5 mg PO BID 01/13/22 07/23/25 07/23/25 09:00 History Held on 08/02/24. Instructions: Resume on 08/05/24. You may resume 3 days after surgery acarbose 100 mg tablet 100 mg PO TID 06/08/23 07/23/25 07/23/25 09:00 History cholecalciferol (vitamin D3) 50 50 mcg PO DAILY 03/09/24 07/23/25 07/23/25 09:00 History mcg (2,000 unit) tablet atorvastatin 40 mg tablet 40 mg PO BEDTIME 05/09/24 07/23/25 07/23/25 09:00 History bupropion HCl 100 mg tablet,12 hr 100 mg PO DAILY 05/09/24 07/23/25 07/23/25 09:00 History sustained-release cetirizine 10 mg tablet 10 mg PO DAILY 05/09/24 07/23/25 07/23/25 09:00 History lorazepam 0.5 mg tablet 0.5 mg PO BID PRN Anxiety 05/09/24 07/23/25 07/23/25 09:00 History tiotropium bromide 18 mcg capsule 1 cap inhalation DAILY 05/09/24 07/23/25 07/23/25 09:00 History with inhalation device (Spiriva with HandiHaler) zolpidem 10 mg tablet 10 mg PO BEDTIME PRN Insomnia 05/09/24 07/23/25 07/23/25 09:00 History gabapentin 300 mg capsule 600 mg PO TID 07/04/24 07/23/25 07/23/25 09:00 History acetaminophen 500 mg tablet 1,000 mg PO Q6H PRN Pain 07/18/24 07/23/25 07/23/25 09:00 History albuterol sulfate 2.5 mg/3 mL 2.5 mg inhalation Q6H PRN wheezing 07/18/24 07/23/25 07/23/25 09:00 History (0.083 %) solution for nebulization fluticasone propionate 50 1 spray intranasal BID 07/18/24 07/23/25 07/23/25 09:00 History mcg/actuation nasal spray,suspension metformin 500 mg tablet,extended 500 mg PO BID 07/18/24 07/23/25 07/23/25 09:00 History release 24 hr lidocaine 5 % topical patch 1 patch topical DAILY 09/12/24 07/23/25 07/23/25 09:00 History fenofibrate micronized 134 mg 134 mg PO DAILY 12/12/24 07/23/25 07/23/25 09:00 History capsule flash glucose sensor (FreeStyle #1 ea 02/08/25 06/20/25 Unknown History Dagmar 2 Sensor kit) magnesium oxide 400 mg (241.3 mg 400 mg PO DAILY 02/08/25 07/23/25 07/23/25 09:00 History magnesium) tablet semaglutide 1 mg/dose (4 mg/3 mL) 2 mg subcut FR 05/14/25 07/23/25 Unknown History subcutaneous pen injector (Ozempic) metoprolol succinate 25 mg 50 mg PO BID 06/24/25 07/23/25 07/23/25 09:00 History tablet,extended release 24 hr (Toprol XL) insulin glargine 100 unit/mL (3 30 unit subcut DAILY 07/23/25 07/23/25 07/23/25 09:00 History mL) subcutaneous pen (Lantus Solostar U-100 Insulin) Physical Exam Vital Signs: Vital Signs: Last Vital Signs Temp 97.4 F 07/24/25 07:56 Pulse 76 07/24/25 08:03 Resp 18 07/24/25 07:56 BP 120/78 07/24/25 08:03 Pulse Ox 96 07/24/25 07:56 O2 Del Method Room Air 07/24/25 07:56 BMI result Body Mass Index 28.1 Const: General: comfortable and no acute distress Orientation/consciousness: patient oriented x3 HEENT: Other: Unremarkable Head: Yes normal to inspection Neck: Neck: Yes normal visual inspection Chest: Chest palpation & inspection: normal inspection of the chest Resp: Auscultation: clear to auscultation bilaterally Cardio: Palpation: normal PMI Heart sounds: S1 normal heart sound present, S2 normal heart sound present, no gallops, no murmurs and no rubs GI: Palpation (GI): Soft to palpation Back/Spine/Pelvis: Other: unremarkable Skin: General skin exam: no rashes or lesions noted Neuro: General: patient oriented x3 Extrem: General: Yes normal to inspection Psych: Mental Status: mental status grossly normal Objective Labs and Meds 07/24/25 06:10 07/24/25 06:10 Lab results: Laboratory Results - last 24 hr 07/23/25 07/23/25 07/23/25 12:14 21:08 22:51 WBC 7.0 RBC 4.47 Hgb 12.7 Hct 36.8 L MCV 82.3 MCH 28.4 MCHC 34.5 RDW 13.2 Plt Count 262 MPV 11.4 Immature Gran % (Auto) 0.3 Neut % (Auto) 58.3 Lymph % (Auto) 31.5 [place] % (Auto) 7.3 Eos % (Auto) 1.7 Baso % (Auto) 0.9 Lymph # (Auto) 2.2 [place] # (Auto) 0.5 Eos # (Auto) 0.1 Baso # (Auto) 0.1 Abs Immat Gran (auto) 0.02 Absolute Neuts (auto) 4.1 Absolute Nucleated RBC 0.000 Nucleated RBC % (auto) 0.0 Sodium 139 Potassium 4.2 Chloride 108 Carbon Dioxide 24 Anion Gap 11 L BUN 19 H Creatinine 1.10 Estim Creat Clear Calc 46.2 Estimated GFR 50 POC Glucose 259 H Random Glucose 186 H Calcium 10.4 H Total Bilirubin 0.3 AST 19 ALT 20 Alkaline Phosphatase 103 Troponin I High Sens < 2.7 3.0 Total Protein 7.0 Albumin 4.8 07/24/25 07/24/25 06:10 07:53 WBC 6.9 RBC 4.68 Hgb 13.3 Hct 37.7 MCV 80.6 MCH 28.4 MCHC 35.3 H RDW 13.2 Plt Count 312 MPV 10.9 Immature Gran % (Auto) Neut % (Auto) Lymph % (Auto) [place] % (Auto) Eos % (Auto) Baso % (Auto) Lymph # (Auto) [place] # (Auto) Eos # (Auto) Baso # (Auto) Abs Immat Gran (auto) Absolute Neuts (auto) Absolute Nucleated RBC 0.000 Nucleated RBC % (auto) 0.0 Sodium 141 Potassium 4.8 Chloride 109 H Carbon Dioxide 26 Anion Gap 11 L BUN 16 Creatinine 1.20 Estim Creat Clear Calc 41.6 Estimated GFR 45 POC Glucose 166 H Random Glucose 165 H Calcium 10.1 Total Bilirubin AST ALT Alkaline Phosphatase Troponin I High Sens Total Protein Albumin Imaging Radiologist's impression: Impressions Chest X-Ray 07/23/25 12:25 IMPRESSION: No acute airspace disease. Electronically signed by: Chapo Adams MD 07/23/2025 12:37 PM EDT RP Assessment and Plan (1) Chest pain: Qualifiers: Chest pain type: precordial pain Qualified Code(s): R07.2 - Precordial pain Status: Acute (2) CAD (coronary artery disease): Qualifiers: Coronary Disease-Associated Artery/Lesion type: [place] artery Associated angina: with unspecified form of angina Status: Acute Plan EKG with underlying sinus rhythm at 80/Min; no ischemic changes; normal AR and corrected QT. Repeat EKG also similar. High sensitivity troponin is normal. Overall, recent chest pain but negative EKG and biomarkers but known history of coronary disease and multiple risk factors. We will plan on stress perfusion imaging today/echocardiogram. Based on findings, we will follow up on care. Procedures Date of Service Date of Service: 07/24/25
--- NOTE | 2025-07-24 11:35 | MHC.CM.PN ---
Pt. lives alone, she has [employer] services 14 hrs a week. PCP confirmed: Sepideh Hopkins, HCP on file and confirmed: [place]. For DME, pt. uses a rollator and a cane. Transport home, pt. can arrange. DCP: home, resume [employer] services, CM to follow for DC needs.
[2025-07-24 11:57] VITALS: BP 146/82; PULSE 72; RESP 18; TEMP 36.2; O2SAT 96
[2025-07-24 12:09] VITALS: BP 122/56; PULSE 82; RESP 20; TEMP 36.2; O2SAT 100
[2025-07-24 12:18] LABS: Glucose, Whole Blood 261 mg/dL (60-115)
--- NOTE | 2025-07-24 15:27 | P.DS_ITS ---
DS: Providers Provider Date of Service: 07/24/25 Date of admission: 07/23/25 13:56 Date of discharge: 07/24/25 Primary care physician: Sepideh Hopkins NP Consults: 07/24/25 08:31 Consult to Cardiology Routine Consulting Provider: [facility] Reason for consultation: Nuclear stress test for atypical CP DS: Diagnosis Discharge Diagnosis (1) Chest pain: Status: Acute (2) CAD (coronary artery disease): Status: Acute DS: Summary Hospital Course Hospital Course: HPI: 65-year-old woman presented to the ER with complaints of chest pain. Patient reported that the pain started yesterday. She describes it as substernal, constant sharp pain without radiation or other associated symptoms. She reported she was walking to [facility] today and the pain became worse. At [facility] they did give her an aspirin and called EMS to bring her to the hospital. She does have a history of coronary artery disease with drug-eluting stent in 2012. Subsequently after that she developed chest pain and had another cardiac catheterization which showed good perfusion. She denied shortness of breath, nausea, vomiting, diarrhea, recent illness, sick contacts. In the ED, EKG was not very different from previous EKG, troponin negative and flat. Patient was placed on observation for further management and treatment of chest pain. Chest pain of unclear etiology in a patient with high-risk of CAD- lad ASHLEY stent 2012, dm 2, HLD CAD -ASHLEY 2012 HTN Patient with known CAD appears to have had chest pain which was highly suspicious for ischemic etiology on 07/23/2025. Cardiology was consulted, and given high pretest probability, she underwent nuclear perfusion imaging did not show any clear-cut ischemic findings, with negative high sensitivity troponin and no significant events noted on telemetry, and electrolytes were within normal limits. Impression: 1. Myocardial perfusion imaging study shows probably normal myocardial perfusion. 2. Gated LVEF is 57% during stress. 3. Transient ischemic dilatation not present. Patient was advised to cut down on smoking, no changes in medications were made during this hospitalization. Current smoker- Smoking cessation advised DM type 2 - patient has been advised to be compliant with diabetic diet and monitor her A1c Time spent discussing smoking cessation with patient: more than 10 minutes Time Attestation Discharge Coordination Time (in mins): 35 Quality: Safe Use of Opioids Does Pt have an Active Cancer Diagnosis on the Problem List?: No Quality: Stroke Does the patient have a stroke diagnosis?: No Physical Exam Vital Signs: Vital Signs: Last Vital Signs Temp 97.1 F 07/24/25 12:09 Pulse 82 07/24/25 12:09 Resp 20 07/24/25 12:09 BP 122/56 L 07/24/25 12:09 Pulse Ox 100 07/24/25 12:09 O2 Del Method Nasal Cannula 07/24/25 12:09 O2 Flow Rate 3 07/24/25 12:09 BMI result Body Mass Index 28.1 DS: Data Data Completed and Pending Labs on day of discharge: Laboratory Results - last 24 hr 07/23/25 07/23/25 07/24/25 21:08 22:51 06:10 WBC 6.9 RBC 4.68 Hgb 13.3 Hct 37.7 MCV 80.6 MCH 28.4 MCHC 35.3 H RDW 13.2 Plt Count 312 MPV 10.9 Absolute Nucleated RBC 0.000 Nucleated RBC % (auto) 0.0 Sodium 141 Potassium 4.8 Chloride 109 H Carbon Dioxide 26 Anion Gap 11 L BUN 16 Creatinine 1.20 Estim Creat Clear Calc 41.6 Estimated GFR 45 POC Glucose 259 H Random Glucose 165 H Calcium 10.1 Troponin I High Sens 3.0 07/24/25 07/24/25 07:53 11:57 WBC RBC Hgb Hct MCV MCH MCHC RDW Plt Count MPV Absolute Nucleated RBC Nucleated RBC % (auto) Sodium Potassium Chloride Carbon Dioxide Anion Gap BUN Creatinine Estim Creat Clear Calc Estimated GFR POC Glucose 166 H 261 H Random Glucose Calcium Troponin I High Sens Discharge Plan Discharge Anticipated Discharge Date/Time: 07/24/25 14:53 Patient Disposition: Home, Self-Care Discharge Diagnosis: Chest pain in a patient with known CAD, HTN, dm type 2, HLD-negative stress test Referrals: Sepideh Hopkins CAFE LEAD [Primary Care Provider, Internal Medicine] - 1 Week Discharge Medications: New nitroglycerin 0.3 mg tablet, sublingual 0.3 mg sublingual Q5M PRN (Reason: angina) 10 Days Qty: 14 0RF Rx Instructions: do not exceed 3 doses per episode Continued (DME) blood-glucose meter [FreeStyle [place] Lite] Kit See Rx Instructions .ROUTE .MEDSUPPLY Qty: 1 0RF Rx Instructions: To test bg 3x/day (DME) lancets [FreeStyle Lancets] 28 gauge misc MISCELLANEOUS Qty: 300 11RF Rx Instructions: 3 times a day (DME) FreeStyle Lite Strips Strip See Rx Instructions .ROUTE .MEDSUPPLY Qty: 300 2RF Rx Instructions: 4 times a day tramadol 50 mg tablet 50 mg PO Q8H PRN (Reason: pain) Qty: 20 0RF metoprolol succinate [Toprol XL] 25 mg tablet extended release 24 hr 50 mg PO BID sertraline [Zoloft] 100 mg Tablet 200 mg PO BEDTIME Rx Instructions: take 2 tablets bid budesonide-formoterol 160-4.5 mcg/actuation Hfa Aerosol Inhaler 2 puff INHALATION BID (DME) blood-glucose meter [FreeStyle Lite Meter] Kit MISCELLANEOUS Rx Instructions: use as directed TID fenofibrate micronized 134 mg capsule 134 mg PO DAILY albuterol sulfate 2.5 mg /3 mL (0.083 %) solution for nebulization 2.5 mg inhalation Q6H PRN (Reason: wheezing) acetaminophen 500 mg Tablet 1,000 mg PO Q6H PRN (Reason: Pain) fluticasone propionate 50 mcg/actuation [place],Suspension 1 spray INTRANASAL BID Rx Instructions: administer into each nostril metformin 500 mg Tablet Extended Release 24 Hr 500 mg PO BID insulin glargine [Lantus Solostar U-100 Insulin] 100 unit/mL (3 mL) insulin pen 30 unit subcut DAILY (DME) pen needle, diabetic [BD Ultra-Fine [place] Pen Needle] 32 gauge x 5/32 needle See Rx Instructions .ROUTE .MEDSUPPLY Qty: 150 11RF Rx Instructions: four times a day Eliquis 2.5 mg tablet 2.5 mg PO BID cholecalciferol (vitamin D3) 50 mcg (2,000 unit) tablet 50 mcg PO DAILY docusate sodium [Colace] 100 mg capsule 100 mg PO DAILY Qty: 30 3RF gabapentin 300 mg capsule 600 mg PO TID acarbose 100 mg tablet 100 mg PO TID bupropion HCl 100 mg tablet sustained-release 12 hr 100 mg PO DAILY zolpidem 10 mg tablet 10 mg PO BEDTIME PRN (Reason: Insomnia) lorazepam 0.5 mg tablet 0.5 mg PO BID PRN (Reason: Anxiety) tiotropium bromide [Spiriva with HandiHaler] 18 mcg capsule, w/inhalation device 1 cap inhalation DAILY cetirizine 10 mg tablet 10 mg PO DAILY atorvastatin 40 mg tablet 40 mg PO BEDTIME lidocaine 5 % adhesive patch,medicated 1 patch topical DAILY (DME) FreeStyle [place] 2 Sensor Kit See Rx Instructions .ROUTE Q2W Qty: 1 Rx Instructions: As directed magnesium oxide 400 mg (241.3 mg magnesium) tablet 400 mg PO DAILY Ozempic 1 mg/dose (4 mg/3 mL) pen injector 2 mg subcut FR esomeprazole magnesium [Nexium] 40 mg capsule,delayed release(DR/EC) 40 mg PO DAILY Qty: 90 2RF famotidine 40 mg tablet 40 mg PO BEDTIME Qty: 90 3RF Discontinued albuterol sulfate [ProAir HFA] 90 mcg/actuation Hfa Aerosol Inhaler 2 puff INHALATION Q4-6H PRN (Reason: Shortness Of Breath Or Wheezing) Discharge Orders: Discharge Order (Routine); Ordered 07/24/25 Ordered By: Georgette Cohen Diet: Cardiac, diabetic diet Activity on Discharge: As tolerated Stand Alone Forms: Patient Portal Discharge page Print Language: French Care Plan Goals: Follow-up with cardiology in outpatient settings with me in the next 1-2 weeks for medication management Come back to the ED if chest pain recurs Nitroglycerin SL Health Concerns: see above Plan of Treatment: see above Assessment: see above
== END 2025-07-24 17:04 | disposition home or self-care (01) | DRG 198 ==
LOC: HO.ED 13:41 → HO.EDOVER 14:08 → HO.IMC 19:23
PROVIDERS: Internal Medicine; Admitting Provider Nurse Practitioner Acute Care; Emergency Provider Emergency Medicine; PCP Nurse Practitioner Primary Care; Visit Provider Student in an Organized Health Care Education/Training Program
DX: R07.9 Chest pain, unspecified (principal); I25.10 Atherosclerotic heart disease of native coronary artery without angina pectoris; E11.42 Type 2 diabetes mellitus with diabetic polyneuropathy; E11.9 Type 2 diabetes mellitus without complications; E78.5 Hyperlipidemia, unspecified; Z95.5 Presence of coronary angioplasty implant and graft; Z79.4 Long term (current) use of insulin; Z79.01 Long term (current) use of anticoagulants; Z79.84 Long term (current) use of oral hypoglycemic drugs; Z79.899 Other long term (current) drug therapy; Z86.711 Personal history of pulmonary embolism
CPT/HCPCS: 36415; 71045; 78452; 80048; 80053; 82947; 84484; 85025; 85027; 93005; 93017; 99285; A9500; J0280; J2785; Q9957

== ENCOUNTER → 2025-07-23 11:37 | Outpatient (BNV) | payer MEDICAID, SELFPAY | PROVIDERS: Admitting Provider Nurse Practitioner Acute Care; Emergency Provider Emergency Medicine; PCP Nurse Practitioner Primary Care; Visit Provider Internal Medicine | DX: R94.31 Abnormal electrocardiogram [ECG] [EKG] (principal); R07.89 Other chest pain | CPT/HCPCS: 93010 ==

== ENCOUNTER → 2025-07-23 11:45 | Outpatient (BNV) | payer MEDICAID, SELFPAY | PROVIDERS: Emergency Provider Emergency Medicine; Visit Provider Radiology Diagnostic Radiology | DX: R07.9 Chest pain, unspecified (principal) | CPT/HCPCS: 71045 ==

== ENCOUNTER 2025-07-23 13:56 | Outpatient (BNV) | payer MEDICAID, SELFPAY | END 2025-07-24 13:27 | PROVIDERS: Admitting Provider Nurse Practitioner Acute Care; Emergency Provider Emergency Medicine; PCP Nurse Practitioner Primary Care; Visit Provider Internal Medicine | DX: R07.9 Chest pain, unspecified (principal) | CPT/HCPCS: 78452 ==

== ENCOUNTER → 2025-07-23 13:56 | Outpatient (BNV) | payer MEDICAID, SELFPAY | PROVIDERS: Admitting Provider Nurse Practitioner Acute Care; Emergency Provider Emergency Medicine; PCP Nurse Practitioner Primary Care; Visit Provider Nurse Practitioner Acute Care | DX: R07.2 Precordial pain (principal); I25.10 Atherosclerotic heart disease of native coronary artery without angina pectoris | CPT/HCPCS: 99223; 99239 ==

== ENCOUNTER → 2025-07-23 13:56 | Outpatient (BNV) | payer MEDICAID, SELFPAY | PROVIDERS: Admitting Provider Nurse Practitioner Acute Care; Emergency Provider Emergency Medicine; PCP Nurse Practitioner Primary Care; Visit Provider Internal Medicine | DX: R07.2 Precordial pain (principal); I25.10 Atherosclerotic heart disease of native coronary artery without angina pectoris | CPT/HCPCS: 99223 ==

== ENCOUNTER 2025-08-06 10:02 | Outpatient (REF) | payer MEDICAID, SELFPAY ==
--- NOTE | ~2025-08-06 | XR_ITS ---
EXAMINATION: XR SHOULDER 2 OR MORE VIEWS LEFT, XR HUMERUS LEFT HISTORY: left shoulder and arm pain s/p fall COMPARISON: There are no prior studies available for comparison. FINDINGS: Four views of the left shoulder and AP and lateral views of the left humerus are submitted. Osseous mineralization is normal. There is no fracture or dislocation. The glenohumeral and acromioclavicular joint spaces are preserved. The visualized portion of the elbow joint is maintained. The soft tissues are unremarkable. XR/XR humerus LT IMPRESSION: Unremarkable examination of the left shoulder and humerus. Electronically signed by: Jam Rosa MD 08/06/2025 10:36 AM EDT
--- NOTE | ~2025-08-06 | XR_ITS ---
EXAMINATION: XR SHOULDER 2 OR MORE VIEWS LEFT, XR HUMERUS LEFT HISTORY: left shoulder and arm pain s/p fall COMPARISON: There are no prior studies available for comparison. FINDINGS: Four views of the left shoulder and AP and lateral views of the left humerus are submitted. Osseous mineralization is normal. There is no fracture or dislocation. The glenohumeral and acromioclavicular joint spaces are preserved. The visualized portion of the elbow joint is maintained. The soft tissues are unremarkable. XR/XR shoulder LT min 2V IMPRESSION: Unremarkable examination of the left shoulder and humerus. Electronically signed by: Jam Rosa MD 08/06/2025 10:36 AM EDT
--- OUTSIDE RECORDS SUMMARY | 2025-08-06 09:30 | XMS_ITS | Encounter Summary ---
Author Organization [employer] Address [address] [facility] [address] [place] [address] Care Team Providers Care Pattern Technician Name Role Phone Neil Bernard JAVI Primary Care Provider [phone] Vaishali Minor PharmD Unavailable [phone] Reason for Referral * Consultation (Routine) - Pending Review Specialty Diagnoses / Procedures Referred By Alley morales Referred To Contact Physical Therapy Diagnoses Acute pain of left shoulder Ramez Schroeder MD [address] [place] [address] Phone: tel: fax: Referral ID Status Reason Start Date Expiration Date Visits Requested Visits Authorized [id number] Pending Review Specialty Services Required 08/06/2025 08/06/2026 1 1 Scheduling Instructions Please schedule in one of the PT programs in [facility] pt does not want to go to [facility] Reason for Visit * Reason Comments Follow-up A1c Encounter Details Date Type Department Care Team ([facility] st Contact Info) Description 08/06/2025 9:30 AM EDT Office Visit [facility] [address] [place], [place] [phone] Ramez Schroeder MD [address] [place], [place] [phone] Hospital discharge follow-up (Primary Dx); Acute pain of left shoulder; Moderate persistent asthma without complication; Encounter for immunization Social History Tobacco Use Types Packs/Day Years [...] Sign Reading Time Taken Comments Blood Pressure 122/76 08/06/2025 9:40 AM EDT Pulse 83 08/06/2025 9:40 AM EDT Temperature 37.2 C (98.9 F) 08/06/2025 9:40 AM EDT Respiratory Rate 16 08/06/2025 9:40 AM EDT Oxygen Saturation 100% 08/06/2025 9:40 AM EDT Inhaled Oxygen Concentration - - Weight 69.3 kg (152 lb 12.8 oz) 08/06/2025 9:40 AM EDT Height 154.9 cm (5' 1 ) 08/06/2025 9:40 AM EDT Body Mass Index 28.87 08/06/2025 9:40 AM EDT documented in this encounter Miscellaneous Notes * Assessment & Plan Note - Ramez Perkins MD - 08/06/2025 9:47 AM EDT Associated Problem(s): Acute pain of left shoulder Pt here with c/o left shoulder and arm pain x 3 weeks. Pt reports a history of a fall but does not recall landing on her arm On exam there are no masses palpated, no warmth, no redness, There is mild tenderness to palpation over her left arm primarily. She has full ROM left shoulder Plan: Plain films left shoulder and arm. PT evaluation F/u if worsening or no improvement * Assessment & Plan Note - Ramze Perkins MD - 08/06/2025 9:09 AM EDT Associated Problem(s): Hospital discharge follow-up Patient here for a HDF Recently admiited to [facility] from 07/23/25-07/24/25 Patient presented for evaluation of chest pain.During Hospitalization, Cardiology was consulted andpatient underwent nuclear perfusion imaging which did not show clear cut ischemic findings, with negative troponin's and no significant events noted on telemetry. Patient was advised to cute down on s moking. No medication changes were made. Patient discharged home to follow up with PCP Impression: 1. Myocardial perfusion imaging study shows probably normal myocardial perfusion. 2. Gated LVEF is 57% during stress. 3. Transient ischemic dilatation not present. Patient was advised to cut down on smoking, no changes in medications were made during this hospitalization. Today: Patient denies Chest pain , already has a follow up scheduled with Cardiology documented in this encounter Plan of Treatment Upcoming Encounters Date Type Department Care Team (Late st Contact Info) Description 08/07/2025 2:00 PM EDT Medication Management [address] [address] Vaishali Minor, PharmD [address] [place] [address] 08/19/2025 11:00 AM EDT Medication Management [address] [address] Vaishali Minor, PharmD [address] [place] [address] 08/30/2025 10:30 AM EDT Clinical Support [address] [address] Shanelle Miller, MENDEL [address] [place] [address] 10/01/2025 9:15 AM EST Office Visit [address] [address] Neil Bernard ANP [address] [place] [address] 01/02/2026 10:00 AM EST Office Visit [facility] [address] [place] [phone] Linsey Dawkins Scheduled Referrals Name Type Priority Associated Diagnoses Orde r Schedule Referral to Physical Therapy Outpatient Referral Routine Acute pain of left shoulder Expected: 08/06/2025 (Approximate), Expires: 08/06/2026 documented as of this encounter Procedures Procedure Name Priority Date/Time Associated Diagnosis Comments XR HUMERUS LEFT Routine 08/06/2025 10:30 AM EDT Acute pain of left shoulder XR SHOULDER 2+ VIEWS LEFT Routine 08/06/2025 10:30 AM EDT Acute pain of left shoulder POCT GLUCOSE Routine 08/06/2025 10:05 AM EDT Hospital discharge follow-up POCT GLYCOSYLATED HEMOGLOBIN (HGB A1C) Routine 08/06/2025 10:04 AM EDT Hospital discharge follow-up documented in this encounter Results * XR Humerus Left (08/06/2025 10:30 AM EDT) Anatomical Region Laterality Modality Upper Extremities, Humerus Left Radio graphic Imaging 08/06/2025 10:3 0 AM EDT Narrative 08/06/2025 10:38 AM EDT [facility] [address] [place] [address] XRay Report Signed Patient: Joelle Myers I MR#: [id number] : 1960 Acct:[id number] Age/Sex: 65 / F ADM Date: 08/06/25 Loc: HO.HHCX Attending Dr: Ramez Newman MD Ordering Physician: Ramez Newman MD Date of Service: 08/06/25 Procedure(s): XR humerus LT Accession Number(s): [id number] cc: Ramez Newman MD; NEIL BERNARD NP Reason for Exam: left shoulder and arm pain s/p fall EXAMINATION: XR SHOULDER 2 OR MORE VIEWS LEFT, XR HUMERUS LEFT HISTORY: left shoulder and arm pain s/p fall COMPARISON: There are no prior studies available for comparison. FINDINGS: Four views of the left shoulder and AP and lateral views of the left humerus are submitted. Osseous mineralization is normal. There is no fracture or dislocation. The glenohumeral and acromioclavicular joint spaces are preserved. The visualized portion of the elbow joint is maintained. The soft tissues are unremarkable. XR/XR humerus LT IMPRESSION: Unremarkable examination of the left shoulder and humerus. Electronically signed by: Jam Rosa MD 08/06/2025 10:36 AM EDT Dictated By: Jam Rosa MD Signed By: <Electronically signed by Jam Rosa MD in OV> 08/06/25 1036 DD/ 1030 TD/TT: 08/06/25 1031 Driver Guide: Procedure Note Donotuseinterpreter, Image - 08/06/[address] [address] XRay Report Signed Patient: Joelle Myers IMR#: [id number] : 1960cct:[id number] Age/Sex: 65 / FADM Date: 08/06/25 Loc: HO.HHCX Attending Dr: Ramez Newman MD Ordering Physician: Ramez Newman MD Date of Service: 08/06/25 Procedure(s): XR humerus LT Accession Number(s): [id number] cc: Ramez Newman MD; NEIL BERNARD NP Reason for Exam: left shoulder and arm pain s/p fall EXAMINATION: XR SHOULDER 2 OR MORE VIEWS LEFT, XR HUMERUS LEFT HISTORY: left shoulder and arm pain s/p fall COMPARISON: There are no prior studies available for comparison. FINDINGS: Four views of the left shoulder and AP and lateral views of the left humerus are submitted. Osseous mineralization is normal. There is no fracture or dislocation. The glenohumeral and acromioclavicular joint spaces are preserved. The visualized portion of the elbow joint is maintained. The soft tissues are unremarkable. XR/XR humerus LT IMPRESSION: Unremarkable examination of the left shoulder and humerus. Electronically signed by: Jam Rosa MD 08/06/2025 10:36 AM EDT Dictated By: Jam Rosa MD Signed By: <Electronically signed by Jam Rosa MD in OV> 08/06/25 1036 DD/ 1030 TD/TT: 08/06/25 1031 Driver Guide: Ramez Perkins MD IMG XR PROCEDURES Quentin laura Result - Final * XR Shoulder 2+ Views Left (08/06/2025 10:30 AM EDT) Anatomical Region Laterality Modality Upper Extremities, Shoulder Left Radi ographic Imaging 08/06/2025 10:3 0 AM EDT Narrative 08/06/2025 10:39 AM EDT [address] [address] XRay Report Signed Patient: Joelle Myers I MR#: [id number] 426 : 1960 Acct:[id number] Age/Sex: 65 / F ADM Date: 08/06/25 Loc: HO.HHCX Attending Dr: Ramez Newman MD Ordering Physician: Ramez Newman MD Date of Service: 08/06/25 Procedure(s): XR shoulder LT min 2V Accession Number(s): [id number] cc: Ramez Newman MD; NEIL BERNARD NP Reason for Exam: left shoulder and arm pain s/p fall EXAMINATION: XR SHOULDER 2 OR MORE VIEWS LEFT, XR HUMERUS LEFT HISTORY: left shoulder and arm pain s/p fall COMPARISON: There are no prior studies available for comparison. FINDINGS: Four views of the left shoulder and AP and lateral views of the left humerus are submitted. Osseous mineralization is normal. There is no fracture or dislocation. The glenohumeral and acromioclavicular joint spaces are preserved. The visualized portion of the elbow joint is maintained. The soft tissues are unremarkable. XR/XR shoulder LT min 2V IMPRESSION: Unremarkable examination of the left shoulder and humerus. Electronically signed by: Jam Rosa MD 08/06/2025 10:36 AM EDT Dictated By: Jam Rosa MD Signed By: <Electronically signed by Jam Rosa MD in OV> 08/06/25 1036 DD/ 1030 TD/TT: 08/06/25 1031 Driver Guide: Procedure Note Donotrisainterpreter, Image - 08/06/[address] [address] XRay Report Signed Patient: Joelle Myers IMR#: [id number] : 1960cct:[id number] Age/Sex: 65 / FADM Date: 08/06/25 Loc: HO.HHCX Attending Dr: Ramez Newman MD Ordering Physician: Ramez Newman MD Date of Service: 08/06/25 Procedure(s): XR shoulder LT min 2V Accession Number(s): [id number] cc: Ramez Newman MD; NEIL BERNARD NP Reason for Exam: left shoulder and arm pain s/p fall EXAMINATION: XR SHOULDER 2 OR MORE VIEWS LEFT, XR HUMERUS LEFT HISTORY: left shoulder and arm pain s/p fall COMPARISON: There are no prior studies available for comparison. FINDINGS: Four views of the left shoulder and AP and lateral views of the left humerus are submitted. Osseous mineralization is normal. There is no fracture or dislocation. The glenohumeral and acromioclavicular joint spaces are preserved. The visualized portion of the elbow joint is maintained. The soft tissues are unremarkable. XR/XR shoulder LT min 2V IMPRESSION: Unremarkable examination of the left shoulder and humerus. Electronically signed by: Jam Rosa MD 08/06/2025 10:36 AM EDT Dictated By: Jam Rosa MD Signed By: <Electronically signed by Jam Rosa MD in OV> 08/06/25 1036 DD/ 1030 TD/TT: 08/06/25 1031 Driver Guide: Ramez Perkins MD IMG XR PROCEDURES Uqentin laura Result - Final * (ABNORMAL) POCT glucose manually resulted (08/06/2025 10:05 AM EDT) Glucose Blood, POC 332(A) 60 - 200 mg/dL QC Media Lot # [id number] Lot# Expiration Date ,151,353 Blood Capillary blood specimen / Unknown 08/06/2025 10:05 AM EDT Ramez Perkins MD POINT OF CARE TEST EN TER/EDIT ORDERABLES Final Result * (ABNORMAL) POCT glycosylated hemoglobin (Hgb A1c) (08/06/2025 10:04 AM EDT) Hemoglobin A1C 8.4(A) 4.0 - 5.7 % QC Media Lot # [id number] Lot# Expiration Date [id number] Blood Capillary blood specimen / Unknown 08/06/2025 10:04 AM EDT Ramez Perkins MD POINT OF CARE TEST EN TER/EDIT ORDERABLES Final Result documented in this encounter Visit Diagnoses Diagnosis Hospital discharge follow-up- Primary Other follow-up examination Acute pain of left shoulder Moderate persistent asthma without complication Encounter for immunization documented in this encounter Additional Health Concerns Assessment Noted Time PHQ-9 Depression Total Score: 5 11/23/19 25 1:05 PM EST documented as of this encounter Care Teams Pattern Technician Relationship Specialty Start Date End Date Neil Bernard ANP [address] [place] [address] PCP - General Family Medicine 07/07/20 Vaishali Minor PharmD [address] [place] [phone] Pharmacist Internal Medicine 10/29/24 Clarence Perkins Dental TechnologistSpecial Education Professor 06/24/25 documented as of this encounter
--- OUTSIDE RECORDS SUMMARY | 2025-08-06 11:06 | XMS_ITS | Encounter Summary ---
Author Organization [employer] Address [address] [facility] 7t [place] [address] Care Team Providers Care Sharepoint Application Developer Name Role Phone Sepideh Hopkins Primary Care Provider [phone] Vaishali Minor PharmD Unavailable Reason for Visit * Reason Comments Med Refill Encounter Details Date Type Department Care Team ([facility] st Contact Info) Description 08/06/2025 Refill [facility] [address] [place], [place] [phone] Sepideh Hopkins ANP [address] [place] [address] Chronic bilateral low back pain without sciatica [...] Description 08/07/2025 2:00 PM EDT Medication Management [address] [address] Vaishali Minor, PharmD [address] [place] [address] 08/19/2025 11:00 AM EDT Medication Management [address] [address] Vaishali Minor, PharmD [address] [place] [address] 08/30/2025 10:30 AM EDT Clinical Support [address] [address] Shanelle Miller RN [address] [place] [address] 10/01/2025 9:15 AM EST Office Visit [address] [address] Sepideh Hopkins, ANP [address] [place] [address] 01/02/2026 10:00 AM EST Office Visit [facility] ADULT DENTAL [address] [place], [place] [phone] Linsey Dawkins documented as of this encounter Visit Diagnoses Diagnosis Chronic bilateral low back pain without sciatica documented in this encounter Additional Health Concerns Assessment Noted Time PHQ-9 Depression Total Score: 5 11/23/19 25 1:05 PM EST documented as of this encounter Care Teams Sharepoint Application Developer Relationship Specialty Start Date End Date Sepideh Hopkins ANP [address] [place] [address] PCP - General Family Medicine 07/07/20 Vaishali Minor, Leonidas [address] [place] [address] Pharmacist Internal Medicine 10/29/24 Clarence Perkins Crisis SpecialistBusiness Development Officer 06/24/25 documented as of this encounter
--- OUTSIDE RECORDS SUMMARY | 2025-08-06 11:06 | XMS_ITS | Encounter Summary ---
Author Organization [employer] Address [address] [facility] 7t [place] [address] Care Team Providers Care Informatica Name Role Phone Sepideh Hopkins Primary Care Provider [phone] Vaishali Minor PharmD Unavailable [phone] Encounter Details Date Type Department Care Team ([facility] st Contact Info) Description 05/02/2025 Orders Only [facility] [address] [place] [address] Sepideh Hopkins ANP [address] [place] [address] Social History Tobacco Use Types Packs/Day Years [...] Description 08/07/2025 2:00 PM EDT Medication Management [address] [address] Vaishali Minor, PharmD [address] [place] [address] 08/19/2025 11:00 AM EDT Medication Management [address] [address] Vaishali Minor, PharmD [address] [place] [address] 08/30/2025 10:30 AM EDT Clinical Support [address] [address] Shanelle Miller, MENDEL [address] [place] [address] 10/01/2025 9:15 AM EST Office Visit [address] [address] Sepideh Hopkins, JAVI [address] [place] [address] 01/02/2026 10:00 AM EST Office Visit [facility] [address] [place] [address] Linsey Dawkins documented as of this encounter Visit Diagnoses Not on filedocumented in this encounter Additional Health Concerns Assessment Noted Time PHQ-9 Depression Total Score: 5 11/23/19 25 1:05 PM EST documented as of this encounter Care Teams Informatica Relationship Specialty Start Date End Date Sepideh Hopkins ANP [address] [place] [address] PCP - General Family Medicine 07/07/20 Vaishali Minor PharmD [address] [place] [address] Pharmacist Internal Medicine 10/29/24 Clarence Perkins Director SalesCorsetier 06/24/25 documented as of this encounter
--- OUTSIDE RECORDS SUMMARY | 2025-08-06 11:06 | XMS_ITS | Encounter Summary ---
Author Organization [employer] Address 75 [facility] 7t [place] [address] Care Team Providers Care Cat Tender Name Role Phone Sepideh Hopkins Primary Care Provider [phone] Vaishali Minor PharmD Unavailable Reason for Visit * Reason Onset Date Comments Med Refill 08/05/2025 Encounter Details Date Type Department Care Team ([facility] st Contact Info) Description 08/05/2025 Telephone [facility] MEDICINE [address] [place], [place] [phone] Sepideh Hopkins ANP [address] [place] [address] Med Refill Social History Tobacco Use Types Packs/Day Years [...] encounter Miscellaneous Notes * Telephone Encounter - Diogo Tate - 08/05/2025 9:27 AM EDT TC from pt requesting medication refill. Medications needing refill : traMADol (Ultram) 50 MG tablet To be sent to: [facility] - [place], [place] - [address] [place] [address] documented in this encounter Plan of Treatment Upcoming Encounters Date Type Department Care Team ([facility] st Contact Info) Description 08/07/2025 2:00 PM EDT Medication Management [facility] MEDICINE [address] [place] [address] Vaishali Minor, PharmD [address] [place] [address] 08/19/2025 11:00 AM EDT Medication Management [facility] MEDICINE [address] [place] [address] Vaishali Minor, PharmD [address] [place] [address] 08/30/2025 10:30 AM EDT Clinical Support [facility] MEDICINE [address] [place] [address] Shanelle Miller, RN 505 [place] [address] 10/01/2025 9:15 AM EST Office Visit [facility] MEDICINE [address] [place] [address] Sepideh Hopkins ANP [address] [place] [address] 01/02/2026 10:00 AM EST Office Visit [facility] ADULT DENTAL [address] [place] [address] Linsey Dawkins documented as of this encounter Visit Diagnoses Not on filedocumented in this encounter Additional Health Concerns Assessment Noted Time PHQ-9 Depression Total Score: 5 11/23/19 25 1:05 PM EST documented as of this encounter Care Teams Cat Tender Relationship Specialty Start Date End Date Sepideh Hopkins ANP [address] [place] [address] PCP - General Family Medicine 07/07/20 Vaishali Minor, Leonidas [address] [place] [address] Pharmacist Internal Medicine 10/29/24 Clarence Perkins Yarn DyerComic Illustrator 06/24/25 documented as of this encounter
--- OUTSIDE RECORDS SUMMARY | 2025-08-06 11:06 | XMS_ITS | Encounter Summary ---
Author Organization [employer] Address 75 [facility] 7t [place] [address] Care Team Providers Care Bariatric Physician Name Role Phone Sepideh Hopkins JAVI Primary Care Provider [phone] Vaishali Minor PharmD Unavailable [phone] Encounter Details Date Type Department Care Team (Latest Contact Info) Description 08/06/2025 Travel Social History Tobacco Use Types Packs/Day [...] t he electric, gas, oil or water [employer] threatened to shut off services in your [...] Description 08/07/2025 2:00 PM EDT Medication Management [address] [address] Vaishali Minor PharmD [address] [place] [address] 08/19/2025 11:00 AM EDT Medication Management [address] [address] Vaishali Minor, PharmD [address] [place] [address] 08/30/2025 10:30 AM EDT Clinical Support [address] [address] Shanelle Miller RN [address] [place] [address] 10/01/2025 9:15 AM EST Office Visit [address] [address] Sepideh Hopkins ANP [address] [place] [address] 01/02/2026 10:00 AM EST Office Visit [facility] ADULT DENTAL [address] [place] [address] Linsey Dawkins documented as of this encounter Visit Diagnoses Not on filedocumented in this encounter Additional Health Concerns Assessment Noted Time PHQ-9 Depression Total Score: 5 11/23/19 25 1:05 PM EST documented as of this encounter Care Teams Bariatric Physician Relationship Specialty Start Date End Date Sepideh Hopkins ANP [address] [place] [address] PCP - General Family Medicine 07/07/20 Vaishali Minor PharmD [address] [place] [address] Pharmacist Internal Medicine 10/29/24 Clarence Perkins Shift Production AssociateSales Activity Manager 06/24/25 documented as of this encounter
--- OUTSIDE RECORDS SUMMARY | 2025-08-06 11:06 | XMS_ITS | Encounter Summary ---
Author Organization [employer] Address 75 [facility] 7t [place] [address] Care Team Providers Care Development Spec Name Role Phone Sepideh Hopkins JAVI Primary Care Provider [phone] Vaishali Minor PharmD Unavailable [phone] Encounter Details Date Type Department Care Team (Late st Contact Info) Description 01/10/2025 Orders Only [facility] MED & PEDS [address] [place], [place] [phone] Provider, MD Jan Social History Tobacco Use [...] Description 08/07/2025 2:00 PM EDT Medication Management [address] [address] Vaishali Minor PharmD [address] [place] [address] 08/19/2025 11:00 AM EDT Medication Management [address] [address] Vaishali Minor PharmD [address] [place] [address] 08/30/2025 10:30 AM EDT Clinical Support [address] [address] Shanelle Miller, MENDEL [address] [place] [address] 10/01/2025 9:15 AM EST Office Visit [facility] MEDICINE [address] [place] [address] Sepideh Hopkins ANP [address] [place] [address] 01/02/2026 10:00 AM EST Office Visit [facility] ADULT DENTAL [address] [place] [address] Linsey Dawkins documented as of this encounter Procedures Procedure Name Priority Date/Time Associated Diagnosis Comments COLONOSCOPY Routine 01/09/2025 8:51 AM EST documented in this encounter Results * Hm Colonoscopy (01/09/2025 8:51 AM EST) us Historical Provider HEALTH MAINTENANCE Final Result documented in this encounter Visit Diagnoses Not on filedocumented in this encounter Additional Health Concerns Assessment Noted Time PHQ-9 Depression Total Score: 5 11/23/19 25 1:05 PM EST documented as of this encounter Care Teams Development Spec Relationship Specialty Start Date End Date Sepideh Hopkins ANP 230 [place] [address] PCP - General Family Medicine 07/07/20 Vaishali Minor PharmD 230 [place] [address] Pharmacist Internal Medicine 10/29/24 Clarence Perkins PerfumerCake Mixer 06/24/25 documented as of this encounter
--- OUTSIDE RECORDS SUMMARY | 2025-08-06 11:06 | XMS_ITS | Encounter Summary ---
Author Organization [employer] Address 75 [facility] 7t h Floor [place] [phone] Care Team Providers Care Production Assistant Name Role Phone Sepideh Hopkins Primary Care Provider [phone] Vaishali Minor PharmD Unavailable Encounter Details Date Type Department Care Team (Late st Contact Info) Description 10/04/[address] [facility] ADULT DENTAL [address] [place] [address] Dental, Provider, DDS Social History Tobacco Use [...] Description 08/07/2025 2:00 PM EDT Medication Management [facility] MEDICINE [address] [place] [address] RolosDana Winklersa, PharmD 230 [place] [address] 08/19/2025 11:00 AM EDT Medication Management [facility] MEDICINE [address] [place] [address] RolosDana Winklersa, PharmD 230 [place] [address] 08/30/2025 10:30 AM EDT Clinical Support [facility] MEDICINE [address] [place] [address] Shanelle Miller, RN 505 [place] [address] 10/01/2025 9:15 AM EST Office Visit [facility] MEDICINE [address] [place] [address] Sepideh Hopkins ANP [address] [place] [address] 01/02/2026 10:00 AM EST Office Visit [facility] ADULT DENTAL [address] [place] [address] Linsey Dawkins documented as of this encounter [...] on filedocumented in this encounter Care Teams Production Assistant Relationship Specialty Start Date End Date Sepideh Hopkins ANP [address] [place] [address] PCP - General Family Medicine 07/07/20 Vaishali Minor PharmD [address] [place] [address] Pharmacist Internal Medicine 10/29/24 Clarence Perkins Climatology ProfessorDrum Sander Offbearer 06/24/25 documented as of this encounter
--- OUTSIDE RECORDS SUMMARY | 2025-08-06 11:06 | XMS_ITS | Encounter Summary ---
Author Organization [employer] Address 75 [facility] 7t [place] [address] Care Team Providers Care Disability Manager Name Role Phone Sepideh Hopkins Primary Care Provider [phone] Vaishali Minor PharmD Unavailable [phone] Encounter Details Date Type Department Care Team ([facility] st Contact Info) Description 06/21/2025 Results Follow-Up [facility] MEDICINE 230 [place] [address] Sepideh Hopkins ANP 230 [place] [address] Magnesium Social History Tobacco Use Types Packs/Day [...] Description 08/07/2025 2:00 PM EDT Medication Management [facility] MEDICINE [address] [place] [address] Vaishali Minor PharmD [address] [place] [address] 08/19/2025 11:00 AM EDT Medication Management [facility] MEDICINE [address] [place] [address] Vaishali Minor PharmD 230 [place] [address] 08/30/2025 10:30 AM EDT Clinical Support [facility] MEDICINE [address] [place] [address] Shanelle Miller RN 505 [place] [address] 10/01/2025 9:15 AM EST Office Visit [facility] MEDICINE [address] [place] [address] Sepideh Hopkins ANP 230 [place] [address] 01/02/2026 10:00 AM EST Office Visit [facility] ADULT DENTAL [address] [place] [address] Linsey Dawkins documented as of this encounter Procedures Procedure Name Priority Date/Time Associated Diagnosis Comments MAGNESIUM Routine 06/27/2025 2:37 PM EDT Hypomagnesemia documented in this encounter Results * (ABNORMAL) Magnesium (06/27/2025 2:37 PM EDT) [facility] Signature Magnesium 1.2(LL) 1.6 - 2.6 mg/dL [facility] Comment:Critical value for t est(s):MAGS Results called to and readback by:DEBBIE Jones Person calling: STYLHUNTSF Date: 42-05-61Bleg:1700 Blood Venous blood specimen / Unknown 06/27/2025 2:37 PM EDT 06/27/2025 4:20 PM EDT Sepideh [facility] BLOOD ORDERABLES Final Resul t [facility] [address] [place] [address] [phone] documented in this encounter Visit Diagnoses Diagnosis Hypomagnesemia- Primary Disorders of magnesium metabolism documented in this encounter Additional Health Concerns Assessment Noted Time PHQ-9 Depression Total Score: 5 11/23/19 25 1:05 PM EST documented as of this encounter Care Teams Disability Manager Relationship Specialty Start Date End Date Sepideh Hopkins ANP [address] [place] [address] PCP - General Family Medicine 07/07/20 Vaishali Minor, IrwinD [address] [place] [address] Pharmacist Internal Medicine 10/29/24 Clarence Perkins Edge PluggerInformation Security Officer 06/24/25 documented as of this encounter
--- OUTSIDE RECORDS SUMMARY | 2025-08-06 11:06 | XMS_ITS | Encounter Summary ---
Author Organization [employer] Address 75 [facility] 7t [place] [address] Care Team Providers Care Stock Taker Name Role Phone Sepideh Hopkins Primary Care Provider [phone] Vaishali Minor PharmD Unavailable Encounter Details Date Type Department Care Team (Latest Contact Info) Description 07/23/2022 Abstract [facility] CONVERSIONS Dental, Provider, DDS Social [...] Description 08/07/2025 2:00 PM EDT Medication Management [address] [address] Vaishali Minor, PharmD 230 [place] [address] 08/19/2025 11:00 AM EDT Medication Management [facility] MEDICINE [address] [place] [address] Vaishali Minor, PharmD [address] [place] [address] 08/30/2025 10:30 AM EDT Clinical Support [facility] MEDICINE [address] [place] [address] Shanelle Miller, RN 505 [place] [address] 10/01/2025 9:15 AM EST Office Visit [facility] MEDICINE [address] [place] [address] Sepideh Hopkins ANP [address] [place] [address] 01/02/2026 10:00 AM EST Office Visit [facility] ADULT DENTAL [address] [place] [address] Linsey Dawkins documented as of this encounter Visit Diagnoses Not on filedocumented in this encounter Care Teams Stock Taker Relationship Specialty Start Date End Date Sepideh Hopkins ANP [address] [place] [address] PCP - General Family Medicine 07/07/20 Vaishali Minor PharmD [address] [place] [address] Pharmacist Internal Medicine 10/29/24 Clarence Perkins Fashion JournalistTower Hand 06/24/25 documented as of this encounter
--- OUTSIDE RECORDS SUMMARY | 2025-08-06 11:06 | XMS_ITS | Clinical Summary ---
Author Organization [facility] Facility Address [address] [place] [address] Care Team Providers Care Hyperbaric Nurse Name Role Phone Karlos Adame [facility] Primary Care Provider [phone] Family History Medical History Relation Comments Diabetes [...] Name Priority Date/Time Associated Diagnosis Comments LAB CULINARY INSTRUCTOR Routine 10/19/2017 12:00 AM EST from Last 3 Months or Most Recently Relevant to Health Maintenance Results * Lab [employer] French Teacher (10/19/2017 12:00 AM EST) Hemoglobin A1C 5.9 % [facility] 10/19/2017 [facility] Conversion LAB [id number] LICITED RESULTS Final Result [facility] from Last 3 Months or Most Recently Relevant to Health Maintenance Insurance Medicaid [place] Care Teams Hyperbaric Nurse Relationship Specialty Start Date End Date Karlos Adame FNP [address] [place] [address], [address]rd [place] [address] PCP - General 11/17/20
--- OUTSIDE RECORDS SUMMARY | 2025-08-06 11:06 | XMS_ITS | Encounter Summary ---
Author Organization [employer] Address 75 [facility] 7t [place] [address] Care Team Providers Care Bleaching Machine Operator Name Role Phone Sepideh Hopkins JAVI Primary Care Provider [phone] Vaishali Minor PharmD Unavailable Reason for Visit * Reason Onset Date Comments Triage 07/31/2025 Encounter Details Date Type Department Care Team ([facility] Contact Info) Description 07/31/2025 Telephone [facility] MEDICINE 230 [place] [address] Vaishali Minor, PharmD 230 [place] [address] Triage Social History Tobacco Use Types Packs/Day Years [...] Telephone Encounter - Sharon Garrison RN - 08/01/2025 9:46 AM EDT Return call placed to the pt to check on blood glucose after several elevated numbers were reportedyesterday. (Please see message chain below) Pt proceeded to take double the dose of the prescribed Lantus insulin. (60 units) This morning the pt reports that the blood glucose was 168 and the pt remained asymptomatic. Pt was alert, oriented and states that she is now administering the correct insulin dose of 30 units daily. The pt was advised to continue to monitor BG and call back the office ifthere are any concerns. Pt also reminded up upcoming HDF mamta on 08/06/2025. Pt agreeable to POC and had no further concerns at this time. * Telephone Encounter - Sharon Garrison RN - 07/31/2025 3:39 PM EDT Per request of Leonidas Gorman the pt was called with [facility] pipe fitter gas pipe #[id number] to check on the statusof elevated blood sugar readings and any corresponding symptoms. The pt confirmed that around two hours ago the blood glucose monitor was reading High High (>500). Around an hour later the BG was 389 and the latest reading while on the phone was 324. The pt initially doubled up on the prescribeddose of Lantus due to fear of hyperglycemia. The pt took a total of 60 units of the Lantus instead of 30. The pt was asked if she had any symptoms of hypoglycemia including palpitations, shakes, confusion or dizziness. The pt denied all of these symptoms and sounded very coherent and cohesive over the phone. The pt was strongly advised to monitor blood glucose overnight as the levels may drop suddenly and drastically d/t the amount of insulin administered. The pt was instructed that if the BG goes below 100 to go to the ED or extended [facility] hours. At the time of this call the pt was refusing both. RN told the pt that a status call will be placed in the morning. * Telephone Encounter - Vaishali Minor PharmD - 07/31/2025 2:29 PM EDT Patient reported to [facility] and [facility] that this morning her BG was marked as HI and patient has since administered double amount of lantus solostar due to nervousness of hyperglycemia. She reports her current BG is 389mg/dL along with symptoms of blurry vision and foggy brain . Patient declines recommendation to seek emergency medical attention at the ER and also declines to be seen in [facility]. Patient was educated on the dangers of overuse of long acting insulin and now runs the possibility of hypoglycemia and confirms having juice nearby. Patient was educated that she will be receiving a callfrom RN team and to keep phone nearby. documented in this encounter Plan of Treatment Upcoming Encounters Date Type Department Care Team (Late st Contact Info) Description 08/07/2025 2:00 PM EDT Medication Management [facility] MEDICINE [address] [place] [address] Vaishali Minor PharmD [address] [place] [address] 08/19/2025 11:00 AM EDT Medication Management [address] [address] Vaishali Minor PharmD [address] [place] [address] 08/30/2025 10:30 AM EDT Clinical Support [address] [address] Shanelle Miller, RN 505 [place] [address] 10/01/2025 9:15 AM EST Office Visit [address] [address] Sepideh Hopkins ANP [address] [place] [address] 01/02/2026 10:00 AM EST Office Visit [facility] ADULT DENTAL [address] [place] [address] Linsey Dawkins documented as of this encounter Visit Diagnoses Not on filedocumented in this encounter Additional Health Concerns Assessment Noted Time PHQ-9 Depression Total Score: 5 11/23/19 25 1:05 PM EST documented as of this encounter Care Teams Bleaching Machine Operator Relationship Specialty Start Date End Date Sepideh Hopkins ANP [address] [place] [address] PCP - General Family Medicine 07/07/20 Vaishali Minor, IrwinD [address] [place] [address] Pharmacist Internal Medicine 10/29/24 Clarence Perkins Planer SetterLinseed Oil Order Filler 06/24/25 documented as of this encounter
--- OUTSIDE RECORDS SUMMARY | 2025-08-06 11:06 | XMS_ITS | Encounter Summary ---
Author Organization [employer] Address 75 [facility] 7t [place] [address] Care Team Providers Care Crop Ranch Hand Name Role Phone Sepideh Hopkins JAVI Primary Care Provider [phone] Vaishali Minor PharmD Unavailable Reason for Visit * Reason Onset Date Comments chart prep 08/05/2025 Encounter Details Date Type Department Care Team ([facility] st Contact Info) Description 08/05/2025 Telephone [facility] MEDICINE [address] [place] [address] Ramez Schroeder MD [address] [place], [place] [phone] chart prep Social History Tobacco Use Types Packs/Day Years [...] encounter Miscellaneous Notes * Telephone Encounter - Trina Sterling MA - 08/05/2025 9:00 AM EDT Chart Prep Labs: done Images: done Screenings: Foot Exam and HIV screening Vaccines due: Flu Due Referrals: Completed Overdue care gaps: A1C, Glucose, and Oral Health documented in this encounter Plan of Treatment Upcoming Encounters Date Type Department Care Team (Late st Contact Info) Description 08/07/2025 2:00 PM EDT Medication Management [facility] MEDICINE [address] [place] [address] Vaishali Minor, PharmD 230 [place] [address] 08/19/2025 11:00 AM EDT Medication Management [facility] MEDICINE [address] [place] [address] Vaishali Minor, PharmD [address] [place] [address] 08/30/2025 10:30 AM EDT Clinical Support [facility] MEDICINE [address] [place] [address] Shanelle Miller, RN 505 [place] [address] 10/01/2025 9:15 AM EST Office Visit [facility] MEDICINE [address] [place] [address] Sepideh Hopkins ANP [address] [place] [address] 01/02/2026 10:00 AM EST Office Visit [facility] ADULT DENTAL [address] [place] [address] Linsey Dawkins documented as of this encounter Visit Diagnoses Not on filedocumented in this encounter Additional Health Concerns Assessment Noted Time PHQ-9 Depression Total Score: 5 11/23/19 25 1:05 PM EST documented as of this encounter Care Teams Crop Ranch Hand Relationship Specialty Start Date End Date Sepideh Hopkins ANP [address] [place] [address] PCP - General Family Medicine 07/07/20 Vaishali Minor, IrwinD [address] [place] [address] Pharmacist Internal Medicine 10/29/24 Clarence Perkins Live Ammunition InspectorWallpaper Remover Steam 06/24/25 documented as of this encounter
--- OUTSIDE RECORDS SUMMARY | 2025-08-06 11:07 | XMS_ITS | Encounter Summary ---
Author Organization [employer] Address 75 [facility] 7t [place] [address] Care Team Providers Care Manager Latin Name Role Phone Sepideh Hopkins Primary Care Provider [phone] Vaishali Minor PharmD Unavailable Reason for Visit * Reason Comments Med Refill Encounter Details Date Type Department Care Team ([facility] Contact Info) Description 01/05/2023 Refill [facility] MEDICINE [address] [place] [address] Sepideh Hopkins ANP [address] [place] [address] Social History Tobacco Use Types Packs/Day Years [...] Upcoming Encounters Date Type Department Care Team ([facility] Contact Info) Description 08/07/2025 2:00 PM EDT Medication Management [facility] MEDICINE [address] [place] [address] Vaishali Minor, PharmD [address] [place] [address] 08/19/2025 11:00 AM EDT Medication Management [address] [address] Vaishali Minor PharmD [address] [place] [address] 08/30/2025 10:30 AM EDT Clinical Support [address] [address] Shanelle Miller, MENDEL [address] [place] [address] 10/01/2025 9:15 AM EST Office Visit [address] [address] Sepideh Hopkins ANP [address] [place] [address] 01/02/2026 10:00 AM EST Office Visit [facility] ADULT DENTAL [address] [place] [address] Linsey Dawkins documented as of this encounter Visit Diagnoses Not on filedocumented in this encounter Care Teams Manager Latin Relationship Specialty Start Date End Date Sepdieh Hopkins ANP [address] [place] [address] PCP - General Family Medicine 07/07/20 Vaishali Minor, Leonidas [address] [place] [address] Pharmacist Internal Medicine 10/29/24 Clarence Perkins Photographic Equipment AssemblerSoap Chipper 06/24/25 documented as of this encounter
--- OUTSIDE RECORDS SUMMARY | 2025-08-06 11:07 | XMS_ITS | Encounter Summary ---
Author Organization [employer] Address 75 [facility] 7t [place] [address] Care Team Providers Care Sports Broadcasting Internship Name Role Phone Sepideh Hopkins Primary Care Provider [phone] Vaishali Minor PharmD Unavailable [phone] Reason for Visit * Reason Comments Med Refill Encounter Details Date Type Department Care Team (Late st Contact Info) Description 06/16/2023 Refill [facility] [address] [place] [address] Tisha Cornelius FNP Social History Tobacco Use [...] Description 08/07/2025 2:00 PM EDT Medication Management [facility] 230 [place] [address] RolosVaishali Winkler, PharmD [address] [place] [address] 08/19/2025 11:00 AM EDT Medication Management [facility] [address] [place] [address] RolosDana Winklersa, PharmD [address] [place] [address] 08/30/2025 10:30 AM EDT Clinical Support [address] [address] Shanelle Miller, RN 505 [place] [address] 10/01/2025 9:15 AM EST Office Visit [facility] [address] [place] [address] Sepideh Hopkins ANP [address] [place] [address] 01/02/2026 10:00 AM EST Office Visit [facility] ADULT DENTAL [address] [place] [address] Linsey Dawkins documented as of this encounter Visit Diagnoses Not on filedocumented in this encounter Care Teams Sports Broadcasting Internship Relationship Specialty Start Date End Date Sepideh Hpokins ANP [address] [place] [address] PCP - General Family Medicine 07/07/20 Vaishali Minor, Leonidas [address] [place] [address] Pharmacist Internal Medicine 10/29/24 Clarence Perkins Slab InspectorOffice Machine Technician 06/24/25 documented as of this encounter
--- OUTSIDE RECORDS SUMMARY | 2025-08-06 11:07 | XMS_ITS | Encounter Summary ---
Author Organization [employer] Address 75 [facility] 7t [place] [address] Care Team Providers Care Flower Machine Operator Name Role Phone Sepideh Hopkins Primary Care Provider [phone] Vaishali Minor PharmD Unavailable [phone] Reason for Visit * Reason Comments Med Refill Encounter Details Date Type Department Care Team ([facility] st Contact Info) Description 06/22/2024 Refill [facility] MEDICINE 230 [place], [place] [phone] Sepideh Hopkins ANP 230 [place] [address] Social History Tobacco Use Types Packs/Day Years [...] Description 08/07/2025 2:00 PM EDT Medication Management [address] [address] Vaishali Minor PharmD [address] [place] [address] 08/19/2025 11:00 AM EDT Medication Management [address] [address] Vaishali Minor PharmD [address] [place] [address] 08/30/2025 10:30 AM EDT Clinical Support [address] [address] Shanelle Miller, RN 505 [place] [address] 10/01/2025 9:15 AM EST Office Visit [address] [address] Sepideh Hopkins ANP [address] [place] [address] 01/02/2026 10:00 AM EST Office Visit [facility] ADULT DENTAL [address] [place] [address] Linsey Dawkins documented as of this encounter Visit Diagnoses Not on filedocumented in this encounter Care Teams Flower Machine Operator Relationship Specialty Start Date End Date Sepideh Hopkins ANP [address] [place] [address] PCP - General Family Medicine 07/07/20 Vaishali Minor, Leonidas [address] [place] [address] MARCI Joiner [address] Pharmacist Internal Medicine 10/29/24 Clarence Perkins Platen Drier OperatorPbx Mechanic 06/24/25 documented as of this encounter
--- OUTSIDE RECORDS SUMMARY | 2025-08-06 11:07 | XMS_ITS | Encounter Summary ---
Author Organization [employer] Address 75 [facility] 7t [place] [address] Care Team Providers Care Assembler Faucets Name Role Phone Sepideh Hopkins Primary Care Provider [phone] Vaishali Minor PharmD Unavailable Reason for Visit * Reason Comments Med Refill Encounter Details Date Type Department Care Team ([facility] st Contact Info) Description 06/27/2025 Refill [facility] [address] [place], [place] [phone] Sepideh Hopkins ANP 230 [facility] [place] [address] Chronic bilateral low back pain without sciatica [...] Description 08/07/2025 2:00 PM EDT Medication Management [address] [address] Vaishali Minor, PharmD [address] [place] [address] 08/19/2025 11:00 AM EDT Medication Management [address] [address] Vaishali Minor, PharmD [address] [place] [address] 08/30/2025 10:30 AM EDT Clinical Support [address] [address] Shanelle Miller RN 505 [place] [address] 10/01/2025 9:15 AM EST Office Visit [address] [address] Sepideh Hopkins, JAVI [address] [place] [address] 01/02/2026 10:00 AM EST Office Visit [facility] ADULT DENTAL 230 [place] [address] Linsey Dawkins documented as of this encounter Visit Diagnoses Diagnosis Chronic bilateral low back pain without sciatica documented in this encounter Additional Health Concerns Assessment Noted Time PHQ-9 Depression Total Score: 5 11/23/19 25 1:05 PM EST documented as of this encounter Care Teams Assembler Faucets Relationship Specialty Start Date End Date Sepideh Hopkins ANP 230 [place] [address] PCP - General Family Medicine 07/07/20 Vaishali Minor PharmD 230 [place] [address] Pharmacist Internal Medicine 10/29/24 Clarence Perkins Veterans Service RepresentativeResearch Mechanic 06/24/25 documented as of this encounter
--- OUTSIDE RECORDS SUMMARY | 2025-08-06 11:07 | XMS_ITS | Encounter Summary ---
Author Organization [employer] Address 75 [facility] 7t [place] [address] Care Team Providers Care Md Ophthalmologist Name Role Phone Sepideh Hopkins JAVI Primary Care Provider [phone] Vaishali Minor PharmD Unavailable Reason for Visit * Reason Onset Date Comments Dr. Angeles case delivery 07/03/2025 Encounter Details Date Type Department Care Team ([facility] st Contact Info) Description 07/03/2025 Telephone [facility] ADULT DENTAL 230 [place] [address] Everett Angeles, DMD [address] [place] [address] Dr. Angeles case delivery Social History Tobacco [...] Angeles was not in office yesterday therefore desk assistant is waiting to see him today to confirm how provider would likke to schedule patient. assistant front desk manager will reach out to patient to schedule. documented in this encounter Plan of Treatment Upcoming Encounters Date Type Department Care Team (Late st Contact Info) Description 08/07/2025 2:00 PM EDT Medication Management [facility] MEDICINE [address] [place] [address] Vaishali Minor PharmD 230 [place] [address] 08/19/2025 11:00 AM EDT Medication Management [facility] 230 [place] [address] Vaishali Minor, PharmD 230 [place] [address] 08/30/2025 10:30 AM EDT Clinical Support [facility] [address] [place] [address] Shanelle Miller, RN [address] [place] [address] 10/01/2025 9:15 AM EST Office Visit [facility] [address] [place] [address] Sepideh Hopkins ANP 230 [place] [address] 01/02/2026 10:00 AM EST Office Visit [facility] ADULT DENTAL [address] [place] [address] Linsey Dawkins documented as of this encounter Visit Diagnoses Not on filedocumented in this encounter Additional Health Concerns Assessment Noted Time PHQ-9 Depression Total Score: 5 11/23/19 25 1:05 PM EST documented as of this encounter Care Teams Md Ophthalmologist Relationship Specialty Start Date End Date Sepideh Hopkins ANP [address] [place] [address] PCP - General Family Medicine 07/07/20 Vaishali Minor, IrwinD [address] [place] [address] Pharmacist Internal Medicine 10/29/24 Clarence Perkins Corporate Development InternStapler Coil Unit 06/24/25 documented as of this encounter
--- OUTSIDE RECORDS SUMMARY | 2025-08-06 11:07 | XMS_ITS | Encounter Summary ---
Author Organization [employer] Address 75 [facility] 7t h Floor [place] [id number] Care Team Providers Care Grades 9 Thru 12 Visiting Teacher Name Role Phone Sepideh Hopkins Primary Care Provider Vaishali Minor PharmD Unavailable Encounter Details Date Type Department Care Team (Late Contact Info) Description 10/03/2023 Orders Only [facility] MEDICINE [address] [place] [address] Sepideh Hopkins ANP 230 [place] [address] Social History Tobacco Use Types Packs/Day Years [...] Description 08/07/2025 2:00 PM EDT Medication Management [facility] [address] [place] [address] Vaishali Minor, PharmD 230 [place] [address] 08/19/2025 11:00 AM EDT Medication Management [facility] MED[facility] [address] [place] [address] Vaishali Minor PharmD [address] [place] [address] 08/30/2025 10:30 AM EDT Clinical Support [address] [address] Shanelle Miller, RN 505 [place] [address] 10/01/2025 9:15 AM EST Office Visit [facility] MED[facility]INE [address] [place] [address] Sepideh Hopkins ANP [address] [place] [address] 01/02/2026 10:00 AM EST Office Visit [facility] ADULT DENTAL [address] [place] [address] Linsey Dawkins documented as of this encounter Visit Diagnoses Not on filedocumented in this encounter Care Teams Grades 9 Thru 12 Visiting Teacher Relationship Specialty Start Date End Date Sepideh Hopkins ANP [address] [place] [address] PCP - General Family Medicine 07/07/20 Vaishali Minor, IrwinD [address] [place] [address] Pharmacist Internal Medicine 10/29/24 Clarence Perkins Ear Muff AssemblerSnailer 06/24/25 documented as of this encounter
--- OUTSIDE RECORDS SUMMARY | 2025-08-06 11:07 | XMS_ITS | Encounter Summary ---
Author Organization [employer] Address 75 [facility] 7t [place] [address] Care Team Providers Care Airplane Dispatcher Name Role Phone Sepideh Hopkins JAVI Primary Care Provider [phone] Vaishali Minor PharmD Unavailable Reason for Visit * Reason Onset Date Comments Appointment 12/08/2022 Patient called i n inquiring about RCT appt with Pasquale. Encounter Details Date Type Department Care Team ([facility] Contact Info) Description 12/08/2022 Telephone [facility] ADULT DENTAL [address] [place], [place] [phone] Gregorio Giordano, ANNIES 505 [place], [place] [phone] Appointment (Patient called in inquiring about RCT [...] 08/07/2025 2:00 PM EDT Medication Management [address] [address] Vaishali Minor PharmD [address] [place] [address] 08/19/2025 11:00 AM EDT Medication Management [address] [address] Vaishali Minor PharmD [address] [place] [address] 08/30/2025 10:30 AM EDT Clinical Support [address] [address] Shanelle Miller, RN 505 [place] [address] 10/01/2025 9:15 AM EST Office Visit [address] [address] Sepideh Hopkins ANP [address] [place] [address] 01/02/2026 10:00 AM EST Office Visit [facility] ADULT DENTAL [address] [place] [address] Linsey Dawkins documented as of this encounter Visit Diagnoses Not on filedocumented in this encounter Care Teams Airplane Dispatcher Relationship Specialty Start Date End Date Sepideh Hopkins ANP [address] [place] [address] PCP - General Family Medicine 07/07/20 Vaishali Minor PharmD [address] [place] [address] Pharmacist Internal Medicine 10/29/24 Clarence Perkins Residential ConciergeClaims Consultant 06/24/25 documented as of this encounter
--- OUTSIDE RECORDS SUMMARY | 2025-08-06 11:07 | XMS_ITS | Encounter Summary ---
Author Organization [employer] Address 75 [facility] 7t [place] [address] Care Team Providers Care Intermediate Card Tender Name Role Phone Sepideh Hopkins Primary Care Provider [phone] Vaishali Minor PharmD Unavailable [phone] Reason for Visit * Reason Comments Med Refill Encounter Details Date Type Department Care Team ([facility] st Contact Info) Description 02/27/2024 Refill [facility] 230 [place], [place] [phone] Sepideh Hopkins ANP 230 [place] [address] Social History Tobacco Use Types Packs/Day Years [...] Description 08/07/2025 2:00 PM EDT Medication Management [address] [address] Vaishali Minor PharmD [address] [place] [address] 08/19/2025 11:00 AM EDT Medication Management [address] [address] Vaishali Minor PharmD [address] [place] [address] 08/30/2025 10:30 AM EDT Clinical Support [address] [address] Shanelle Miller, RN 505 [place] [address] 10/01/2025 9:15 AM EST Office Visit [address] [address] Sepideh Hopkins ANP [address] [place] [address] 01/02/2026 10:00 AM EST Office Visit [facility] ADULT DENTAL [address] [place] [address] Linsey Dawkins documented as of this encounter Visit Diagnoses Not on filedocumented in this encounter Care Teams Intermediate Card Tender Relationship Specialty Start Date End Date Sepideh Hopkins ANP [address] [place] [address] PCP - General Family Medicine 07/07/20 Vaishali Minor, Leonidas [address] [place] [address] MARCI Joiner [address] Pharmacist Internal Medicine 10/29/24 Clarence Perkins Scrap PickerFreelance Makeup Artist 06/24/25 documented as of this encounter
--- OUTSIDE RECORDS SUMMARY | 2025-08-06 11:07 | XMS_ITS | Encounter Summary ---
Author Organization [employer] Address 75 [facility] 7t [place] [address] Care Team Providers Care News Assistant Name Role Phone Sepideh Hopkins Primary Care Provider [phone] Vaishali Minor PharmD Unavailable Reason for Visit * Reason Comments Med Refill Encounter Details Date Type Department Care Team ([facility] st Contact Info) Description 05/23/2025 Refill [facility] MEDICINE 230 [place], [place] [phone] Sepideh Hopkins ANP 230 [place] [address] History of pulmonary embolism; Diabetic polyneuropathy associated [...] Description 08/07/2025 2:00 PM EDT Medication Management [address] [address] Vaishali Minor, IrwinD [address] [place] [address] 08/19/2025 11:00 AM EDT Medication Management [address] [address] Vaishali Minor, PharmD [address] [place] [address] 08/30/2025 10:30 AM EDT Clinical Support [address] [address] Shanelle Miller, MENDEL 505 [place] [address] 10/01/2025 9:15 AM EST Office Visit [address] [address] Sepideh Hopkins ANP 230 [place] [address] 01/02/2026 10:00 AM EST Office Visit [facility] ADULT DENTAL [address] [place] [address] Linsey Dawkins documented as of this encounter Visit Diagnoses Diagnosis History of pulmonary embolism Personal history of venous thrombosis and embolism Diabetic polyneuropathy associated with type 2 diabetes mellitus (HCC) documented in this encounter Additional Health Concerns Assessment Noted Time PHQ-9 Depression Total Score: 5 11/23/19 25 1:05 PM EST documented as of this encounter Care Teams News Assistant Relationship Specialty Start Date End Date Sepideh Hopkins ANP [address] [place] [address] PCP - General Family Medicine 07/07/20 Vaishali Minor PharmD [address] [place] [address] Pharmacist Internal Medicine 10/29/24 Clarence Perkins Maintenance Supervisor 2Nd ShiftDye House Wheel Operator 06/24/25 documented as of this encounter
--- OUTSIDE RECORDS SUMMARY | 2025-08-06 11:07 | XMS_ITS | Encounter Summary ---
Author Organization [employer] Address 75 [facility] 7t [place] [address] Care Team Providers Care Blanker Press Operator Name Role Phone Sepideh Hopkins Primary Care Provider [phone] Vaishali Minor PharmD Unavailable Reason for Visit * Reason Onset Date Comments Durable Medical Equipment 06/11/2025 Encounter Details Date Type Department Care Team ([facility] st Contact Info) Description 06/11/2025 Telephone [facility] 230 [place] [address] Sepideh Hopkins ANP 230 [place] [address] Durable Medical Equipment Social History Tobacco Use [...] 06/11/2025 10:28 AM EDT Tc from pt direct care specialist Clarence requesting status on walker discussed during office visit with PCP on 05/31. documented in this encounter Plan of Treatment Upcoming Encounters Date Type Department Care Team (Late st Contact Info) Description 08/07/2025 2:00 PM EDT Medication Management [facility] [address] [place] [address] Vaishali Minor, PharmD 230 [place] [address] 08/19/2025 11:00 AM EDT Medication Management [address] [address] Vaishali Minor PharmD [address] [place] [address] 08/30/2025 10:30 AM EDT Clinical Support [address] [address] Shanelle Miller, RN 505 [place] [address] 10/01/2025 9:15 AM EST Office Visit [address] [address] Sepideh Hopkins ANP [address] [place] [address] 01/02/2026 10:00 AM EST Office Visit [facility] D[facility] [address] [place] [address] Linsey Dawkins documented as of this encounter Visit Diagnoses Not on filedocumented in this encounter Additional Health Concerns Assessment Noted Time PHQ-9 Depression Total Score: 5 11/23/19 25 1:05 PM EST documented as of this encounter Care Teams Blanker Press Operator Relationship Specialty Start Date End Date Sepideh Hopkins ANP [address] [place] [address] PCP - General Family Medicine 07/07/20 Vaishali Minor, Leonidas [address] [place] [address] Pharmacist Internal Medicine 10/29/24 Clarence Perkins Dispatcher RefineryScenario Writer 06/24/25 documented as of this encounter
--- OUTSIDE RECORDS SUMMARY | 2025-08-06 11:07 | XMS_ITS | Encounter Summary ---
Author Organization [employer] Address 75 [facility] 7t [place] [address] Care Team Providers Care Insurance Underwriter Name Role Phone Sepideh Hopkins Primary Care Provider [phone] Vaishali Minor PharmD Unavailable [phone] Encounter Details Date Type Department Care Team ([facility] st Contact Info) Description 07/19/2025 Results Follow-Up [facility] MEDICINE 230 [place] [address] Sepideh Hopkins ANP 230 [place] [address] Culture, Urine, Routine Social History Tobacco Use [...] Description 08/07/2025 2:00 PM EDT Medication Management [address] [address] Vaishali Minor, PharmD [address] [place] [address] 08/19/2025 11:00 AM EDT Medication Management [facility] MEDICINE [address] [place] [address] Vaishali Minor, PharmD [address] [place] [address] 08/30/2025 10:30 AM EDT Clinical Support [address] [address] Shanelle Miller RN [address] [place] [address] 10/01/2025 9:15 AM EST Office Visit [facility] MEDICINE 230 [place] [address] Sepideh Hopkins ANP [address] [place] [address] 01/02/2026 10:00 AM EST Office Visit [facility] ADULT DENTAL [address] [place] [phone] Linsey Dawkins documented as of this encounter Visit Diagnoses Not on filedocumented in this encounter Additional Health Concerns Assessment Noted Time PHQ-9 Depression Total Score: 5 11/23/19 25 1:05 PM EST documented as of this encounter Care Teams Insurance Underwriter Relationship Specialty Start Date End Date Sepideh Hopkins ANP [address] [place] [address] PCP - General Family Medicine 07/07/20 Vaishali iMnor, IrwinD [address] [place] [address] Pharmacist Internal Medicine 10/29/24 Clarence Perkins Military Police OfficerIdentification Printing Machine Setter 06/24/25 documented as of this encounter
--- OUTSIDE RECORDS SUMMARY | 2025-08-06 11:07 | XMS_ITS | Clinical Summary ---
Author Organization [employer] Address [address] [facility] [facility] [address] [place] [address] Care Team Providers Care Procurement Technician Name Role Phone Neil Bernard JAVI Primary Care Provider [phone] Vaishali Minor PharmD Unavailable [phone] Allergies No known active allergies Medications * This document contains information received from the source organization and may not represent a complete record from that organization. triamcinolone (Kenalog) 0.1 % creamIndications :Rash Apply topically if needed in the morning and at bedtime for rash. 30 g Active Lancets (Unilet Micro-Thin 33G) miscIndications: Type 2 diabetes mellitus with hyperglycemia (HCC) TEST BLOOD SUGAR THREE TIMES DAILY 300 each 11 Active LORazepam (Ativan) 0.5 MG tablet Take 0.5 mg by mouth if needed in the morning and at bedtime for anxiety. Active zolpidem (Ambien) 10 MG tablet Take 10 mg by mouth if needed at bedtime. 024 Active albuterol (2.5 MG/3ML) 0.083% nebulizer solutionIndicati ons:Chronic obstructive pulmonary disease with acute exacerbation (CMS/HCC) (HCC) Take 3 mL (2.5 mg) by nebulization every 6 (six) hours if needed for wheezing or shortness of breath. 75 mL 3 Active glucose blood (FreeStyle Precision Nader Test) test stripIndications :Type 2 diabetes mellitus with hyperlipidemia (HCC) Use to test blood sugar 3 times daily 100 each 12 024 2024 Active docusate sodium (Colace) 100 MG capsule TAKE 1 CAPSULE BY MOUTH EVERY DAY FOR CONSTIPATION 024 Active esomeprazole (NexIUM) [address] capsule Take 1 capsule by mouth Once per day. 024 Active famotidine (Pepcid) 40 MG tablet Take 40 mg by mouth at bedtime. 024 Active sertraline (Zoloft) 100 MG tablet Take 1 tablet by mouth once daily Active sodium chloride (Ramer) 0.65 % nasal sprayIndications :Nasal congestion 2 sprays into each nostril twice daily 30 mL 3 025 Active glucose (Glutose) 40 % gel oral gelIndications:T ype 2 diabetes mellitus with hyperlipidemia (HCC) Use as needed for low blood sugar [...] miscIndications: Type 2 diabetes mellitus with hyperglycemia (HCC) Use as instructed with insulin administration once [...] BY MOUTH EVERY MORNING 90 capsule 3 Active senna (Senokot) 8.6 MG tablet TAKE 2 TABLETS BY MOUTH EVERY DAY AT BEDTIME FOR CONSTIPATION Active metoprolol succinate XL (Toprol-XL) 50 MG 24 hr tabletIndication s:Hypertension associated with diabetes (HCC) TAKE 1 TABLET BY MOUTH EVERY MORNING DO NOT BREAK, CRUSH, DISSOLVE OR CHEW 90 tablet 1 Active cetirizine (ZyrTEC) 10 MG tablet TAKE 1 TABLET BY MOUTH EVERY MORNING 90 tablet 1 025 Active naloxone (Narcan) 4 mg/0.1 mL nasal spray Administer 1 spray (4 mg) into affected nostril(s) if needed for opioid reversal. May repeat every 2-3 minutes if needed, alternating nostrils, until medical assistance becomes available. 2 each 2025 Active apixaban (Eliquis) 2.5 MG tabletIndication s:History of pulmonary embolism TAKE 1 TABLET BY MOUTH TWICE DAILY IN THE MORNING AND IN THE EVENING 60 tablet 3 025 Active buPROPion SR (Wellbutrin SR) 100 MG 12 hr tabletIndication s:Mixed anxiety and depressive disorder Take 1 tablet (100 mg) by mouth in the morning. 30 tablet 2 Active cholecalciferol VITAMIN D (Vitamin D-3) 50 MCG (1999 UT) tablet TAKE 1 TABLET BY MOUTH EVERY MORNING 90 tablet 1 025 Active gabapentin (Neurontin) 300 MG capsuleIndicatio ns:Diabetic polyneuropathy associated with type 2 diabetes mellitus (HCC) Take 2 capsules AM and 2 capsules at bedtime 120 capsule 2 Active insulin glargine (Lantus SoloStar) 100 UNIT/ML penIndications:T ype 2 diabetes mellitus with hyperlipidemia (HCC) INJECT SUBCUTANEOUSLY 30 UNITS ONCE DAILY 15 mL Active Continuous Glucose Sensor (FreeStyle Dagmar 2 Plus Sensor) miscIndications: Type 2 diabetes mellitus with hyperlipidemia (HCC) 1 each Use as directed. 2 each Active lidocaine (Lidoderm) 5 % patchIndications :Neck pain APPLY 1 PATCH TOPICALLY TO SKIN, LEAVE ON FOR 12 HOURS AND OFF FOR 12 HOURS DIRECTED 30 patch 2 025 Active traMADol (Ultram) 50 MG tabletIndication s:Chronic bilateral low back pain without sciatica Take 1 tablet (50 mg) by mouth if needed each day for severe pain. 20 tablet 025 Active magnesium oxide (Mag-Ox) 400 (240 Mg) MG tablet Take 400 mg by mouth in the morning. 025 Active Tirzepatide (Mounjaro) 2.5 MG/0.5ML solution auto-injectorInd ications:Type 2 diabetes mellitus with hyperlipidemia (HCC) Inject 2.5 mg under the skin every 7 (seven) days. 2 mL 025 Active nitroglycerin (Nitrostat) 0.3 MG SL tablet DISSOLVE 1 TABLET UNDER THE TONGUE EVERY 5 MINUTES NEEDED FOR ANGINA FOR 10 DAYS. NO MORE THAN 3 DOSES PER EPISODE. CALL 911 IF NO RELIEF AFTER FIRST DOSE 025 Active albuterol 108 (90 Base) MCG/ACT inhalerIndicatio ns:Moderate persistent asthma without complication Inhale 2 puffs every 4 (four) hours. 18 g 5 025 Active nitroglycerin (Nitrostat) 0.[address] 1 tablet under the tongue. 020 2024 Discontinued(M ed list cleanup (will not trigger notification to Pharmacy)) albuterol 108 (90 Base) MCG/ACT inhaler Inhale 2 puffs every 4 (four) hours. 18 g 5 024 2024 Discontinued(R eorder (will not trigger notification to Pharmacy)) aspirin (Aspirin Adult Low Strength) 81 MG EC tabletIndication s:Type 2 diabetes mellitus with hyperlipidemia (HCC) Take 1 tablet (81 mg) by mouth in the morning. 90 tablet 3 025 2024 Discontinued(D iscontinued by another clinician) Ozempic, 2 MG/DOSE, 8 MG/3ML solution pen-injectorIndi cations:Type 2 diabetes mellitus with hyperlipidemia (HCC) Inject 2 MG SUBCUTANEOUSLY EVERY 7 DAYS IN THE ABDOMEN, THIGHS OR UPPER ARM. ROTATE INJECTION SITES. 3 mL 3 025 2024 Discontinued(F ormulary change) magnesium oxide (Mag-Ox) 400 MG tabletIndication s:Hypomagnesemia [...] chewable tablet 324 mgIndications:Unstab le angina (CMS/HCC) (HCC) 324 mg PO Once 07/23/2025 07/23/2025 Ended Active Problems Problem Noted Date Diagnosed Date Hospital discharge follow-up 08/06/2025 Assessment & Plan (08/06/2025 9:50 AM EDT): Patient here for a HDF Recently [place] [facility] Patient presented for evaluation of chest pain.During Hospitalization, Cardiology was consulted and patient underwent nuclear perfusion imaging which did not show clear cut ischemic findings, with negative troponin's and no significant events noted on telemetry. Patient was advised to cute down on smoking. No medication changes were made. Patient discharged [...] has a follow up scheduled with Cardiology Acute pain of left shoulder 08/06/2025 Assessment & Plan (08/06/2025 9:47 AM EDT): Pt here with c/o left shoulder and [...] evaluation F/u if worsening or no improvement Hypomagnesemia 06/28/2025 Overview (06/28/2025): Likely d/t PPI, [...] 09/30/2014 Type 2 diabetes mellitus with hyperlipidemia 03/2013 Hypertension 07/12/2013 Atherosclerosis of coronary artery 04/17/2013 Old myocardial infarction 04/17/2013 Gastroesophageal reflux disease 08/01/2012 Allergic rhinitis 04/24/2012 Hyperlipidemia 04/24/2012 Asthma 03/30/2012 Chronic obstructive lung disease 03/30/2012 Disorder of skeletal muscle 03/30/2012 Obesity 03/30/2012 Encounters Date Type Department Care Team Description 08/06/2025 9:30 AM EDT Office Visit [facility] [address] [place] [address] Ramez Schroeder MD Hospital discharge follow-up (Primary Dx); Acute pain of left shoulder; Moderate persistent asthma without complication; Encounter for immunization 08/06/2025 Refill [facility] [address] [place] [address] Neil Bernard ANP Chronic bilateral low back pain without sciatica 08/06/2025 Travel 08/05/2025 Telephone [facility] [address] [place] [address] Neil Bernard ANP Med Refill 08/05/2025 Telephone [facility] [address] [place] [phone] Ramez Schroeder MD chart prep 07/31/2025 Telephone [facility] [address] [place] [address] Vaishali Minor PharmD Triage 07/30/2025 Telephone [facility] [address] [place] [phone] Vaishali Minor PharmD Call back request 07/26/2025 Telephone [facility] [address] [place] [phone] Vaishali Minor PharmD 07/25/2025 Telephone [facility] [address] [place] [address] Veronica Gupta, MENDEL Hospital Follow-up 07/23/2025 10:20 AM EDT Office Visit [facility] [address] [place] [phone] Nancy Ma MD Unstable angina ([facility]) (Primary Dx); Chest pain, unspecified type 07/23/2025 Orders Only [facility] External Provider, [facility] 07/23/2025 Telephone [facility] [address] [facility] [place] [address] Adrianna Hammonds RN 07/23/2025 Travel 07/22/2025 Travel 07/19/[address] [address] Neil Bernard ANP nov recall 07/19/2025 Results Follow-Up [facility] [address] [place] [address] Neil Bernard ANP Culture, Urine, Routine 07/19/2025 Orders Only [facility] [address] [place] [phone] Neil Bernard ANP Hypomagnesemia (Primary Dx) 07/05/2025 1:00 PM EDT Office Visit [facility] D[facility] [address] [place] [address] Everett Angeles, YENI 07/03/2025 2:30 PM EDT Office Visit [facility] [address] [place] [address] Everett Angeles, DMD 07/03/2025 Telephone [facility] [address] [place] [address] Everett Angeles, DMD Dr. Angeles case delivery 06/28/[address] [address] Sharon Garrison RN Medication Directions 06/28/2025 Orders Only [address] [address] Neil Bernard ANP Hypomagnesemia (Primary Dx) 06/27/2025 3:30 PM EDT Office Visit [facility] [address] [place] [address] Everett Angeles, DMD 06/27/2025 Telephone [facility] [address] [place] [phone] Neil Bernard ANP Critical Magnesium 06/27/2025 Refill [facility] [address] [facility] [place] [address] Neil Bernard ANP Chronic bilateral low back pain without sciatica 06/26/2025 Refill [facility] [address] [place] [address] Neil Bernard ANP Chronic bilateral low back pain without sciatica 06/24/2025 3:00 PM EDT Office Visit [facility] [address] [facility] [place] [address] Raysa Sneed 06/24/2025 Telephone [facility] [address] [place] [address] Neil Bernard ANP Care Coordination (ICP Care Plan) 06/24/2025 Telephone [facility] [address] [place] [address] Everett Angeles DMD 06/21/2025 11:00 AM EDT Office Visit [facility] [address] [place] [address] Everett Angeles DMD 06/21/2025 Results Follow-Up [facility] [address] [place] [address] Neil Bernard ANP Magnesium 06/21/2025 Telephone [facility] [address] [place] [address] Neil Bernard ANP CRITICAL LAB 06/21/2025 Refill [facility] [address] [place] [address] Neil Bernard ANP Neck pain 06/19/2025 Refill [facility] [address] [place] [address] Vaishali Minor, Leonidas Type 2 diabetes mellitus with hyperlipidemia ([facility]/HCC) ([facility]) 06/17/2025 Orders Only [facility] [address] [place] [address] Neil Bernard ANP Hypomagnesemia (Primary Dx) 06/17/2025 Travel 06/11/2025 Telephone [facility] [address] [place] [address] Neil Bernard ANP Durable Medical Equipment 06/11/2025 Results Follow-Up [facility] [address] [place] [phone] Neil Bernard ANP BI Mammogram Diagnostic Tomosynthesis Bilateral 06/11/[address] [address] Neil Bernard ANP Durable Medical Equipment 06/03/2025 Refill [facility] [address] [facility] [place] [address] Neil Bernard ANP Mixed anxiety and depressive disorder; Diabetic polyneuropathy associated with type 2 diabetes mellitus (CMS/HCC) 06/02/2025 Refill [facility] [address] [facility] [place] [address] Neil Bernard ANP Diabetic polyneuropathy associated with type 2 diabetes mellitus (CMS/HCC); Mixed anxiety and depressive disorder 05/31/2025 1:00 PM EDT Office Visit [facility] [address] [facility] [place] [address] Neil Bernard ANP Dizziness (Primary Dx); Type 2 diabetes mellitus with hyperlipidemia (CMS/HCC) ([facility]); Nausea and vomiting, unspecified vomiting type; Breast pain, left; Risk for falls 05/31/2025 Travel 05/30/2025 Telephone [facility] [address] [place] [address] Neil Bernard ANP chart prep 05/27/2025 Refill [facility] [address] [facility] [place] [address] Neil Bernard ANP History of pulmonary embolism 05/23/2025 Refill [facility] [address] [facility] [place] [address] Neil Bernard ANP History of pulmonary embolism; Diabetic polyneuropathy associated with type 2 diabetes mellitus (CMS/HCC) 05/17/2025 11:30 AM EDT Clinical Support [facility] [address] [place] [address] Shanelle Miller, RN Long-term current use of opiate analgesic 05/17/2025 Refill [facility] [address] [place] [address] Shanelle Miller, sweatband perforator bilateral low back pain without sciatica 05/17/2025 Travel 05/16/2025 Orders Only [facility] [address] [facility] [place] [address] Ramez Schroeder MD Type 2 diabetes mellitus with hyperlipidemia (CMS/HCC) (CMS/HCC) (Primary Dx) 05/15/2025 Telephone [facility] [place] [address] Vaishali Minor, PharmD 05/15/2025 Travel 05/14/2025 2:30 PM EDT Office Visit [facility] [address] [place] [address] Everett Angeles DMD 05/13/2025 8:00 AM EDT Office Visit [facility] [address] [place] [address] Everett Angeles DMD from Last 3 Months Immunizations Immunization Administration Dates Next Due Hep B, adult 06/26/2012,06/18/2003,05/16/2003 Influenza injectable quadriv alent IIV4 with preservative 09/13/2016 Influenza injectable quadriv alent preservative free 11/18/2023,09/03/2022,09/17/2020,10/18 Influenza, IIV3, injectable 09/09/2014, 1 Influenza, Injectable, MDCK, preservative free 10/03/2015 Influenza, Split (incl. bethanie fied surface antigen) 07/12/2013,08/22/2012 Influenza, seasonal, injecta ble, preservative free 08/06/2025,08/17/2024 Moderna Covid-19 Vaccine 12+ 03/16/2022,02/19/20 21,01/21/2021 Pfizer [...] Mass Index 28.87 08/06/2025 9:40 AM EDT Plan of Treatment Upcoming Encounters Date Type Department Care Team (Late st Contact Info) Description 08/07/2025 2:00 PM EDT Medication Management [address] [address] Vaishali Minor, PharmD [address] [place] [phone] 08/19/2025 11:00 AM EDT Medication Management [address] [address] Vaishali Minor, PharmD [address] [place] [address] 08/30/2025 10:30 AM EDT Clinical Support [address] [address] Shanelle Miller, MENDEL [address] [place] [address] 10/01/2025 9:15 AM EST Office Visit [address] [address] Neil Bernard ANP [address] [place] [address] 01/02/2026 10:00 AM EST Office Visit [facility] [address] [place] [address] Linsey Dawkins Health Maintenance Due Date Last Done Comments CT Colonography 1961 FIT DNA/Cologuard 1961 FIT 1961 FOBT 1961 HIV Screening 1961 Sigmoidoscopy 1961 Diabetes: Foot Exam 1971 Hepatitis C Screening 1979 Pap Smear 1982 Cervical Cancer Screening 1991 HPV/Cotest 1991 Dental Oral Exam 03/25/2025 09/24/2024 Dental X-Ray: Bitewings 09/25/2025 09/24/2024 Alcohol/Substance Use Screening 10/01/2025 10/01/2024 SDOH Screening 10/10/2025 10/10/2024 Diabetes: Urine Protein Screening 10/12/2025 10/12/2024, 09/03/2022, 08/04/2021 Diabetes: Hemoglobin A1C 11/05/2025 025, 05/15/2025, 02/05/2025, Additional history exists Depression Screening 11/23/2025 11/23/2024, 11/23/19 Lipid Panel 12/17/2025 12/17/2024, 11/09, 01/27/2022, Additional history exists Dental Prophylaxis 12/26/2025 06/24/2025, 11/14/2024 Colonoscopy 01/09/2026 01/09/2025, 04/15/2015 Colorectal Cancer Screening 01/09/2026 Disability Screening 05/31/2026 05/31/2025 Mammogram 06/11/2026 06/11/2025, 08/0 03/2025, 06/06/2024, Additional history exists Tobacco Screening 08/06/2026 08/06/2025 Eye Exam 12/11/2026 12/11/2024, 02/0 02/2025, 12/11/2024, Additional history exists Dental X-Ray: Full Mouth 09/25/2027 09/24/2024 DTaP/Tdap/Td Vaccines (3 - Td or Tdap) 11/18/2033 11/18/2023, 07/12/2013, 05/19/2006 Hepatitis B Vaccines Completed 06/26/2012, 06/18/2003, 05/16/2003 Zoster Vaccines Completed 07/28/2020, 11/08/2019 COVID-19 Vaccine Completed 08/17/2024, 08/2022, 02/18/2021, Additional history exists Pneumococcal Vaccine: 50+ Years Completed 12/10/2024, 06/26/2012 RSV Patients and Patients Aged 60 years or older Completed 01/22/2025 Influenza Vaccine Completed 08/06/2025, , 11/18/2023, Additional history exists HIB Vaccines Aged Out No longer eligi [...] 08/06/2025 10:04 AM EDT Hospital discharge follow-up NM HEART PERFUSION SPECT STRESS AND REST Routine 07/24/2025 8:55 AM EDT ECG 12-LEAD Routine 07/23/2025 10:58 AM EDT [...] 2 diabetes mellitus with hyperlipidemia (CMS/HCC) (CMS/HCC) POCT JAMES-14 URINE DRUG SCREEN Routine 05/17/2025 [...] Recently Relevant to Health Maintenance Results * XR Humerus Left (08/06/2025 10:30 AM EDT) Anatomical Region Laterality Modality Upper Extremities, Humerus Left Radio graphic Imaging 08/06/2025 10:3 0 AM EDT Narrative 08/06/2025 10:38 AM EDT [address] [address] XRay Report Signed Patient: Joelle Myers I MR#: [id number] 426 : 1960 Acct:[id number] Age/Sex: 65 / F ADM Date: 08/06/25 Loc: .HHCX Attending Dr: Ramez Newman MD Ordering Physician: Ramez Newman MD Date of Service: 08/06/25 Procedure(s): XR humerus LT Accession Number(s): [id number] cc: Ramez Newman MD; NEIL BERNARD NP [...] 08/06/25 1036 DD/ 1030 TD/TT: 08/06/25 1031 Gallery Manager: Procedure Note Donotuseinterpreter, Image - 08/06/[address] [address] XRay Report Signed Patient: Joelle Myers IMR#: [id number] : 1960cct:[id number] Age/Sex: 65 / FADM Date: 08/06/25 Loc: HO.HHCX Attending Dr: Ramez Newman MD Ordering Physician: Ramez Newman MD Date of Service: 08/06/25 Procedure(s): XR humerus LT Accession Number(s): [id number] cc: Ramez Newman MD; NEIL BERNARD NP [...] 08/06/25 1036 DD/ 1030 TD/TT: 08/06/25 1031 Gallery Manager: us Ramez Perkins MD IMG XR PROCEDURES Quentin laura Result - Final * XR Shoulder 2+ Views Left (08/06/2025 10:30 AM EDT) Anatomical Region Laterality Modality Upper Extremities, Shoulder Left Radi ographic Imaging 08/06/2025 10:3 0 AM EDT Narrative 08/06/2025 10:39 AM EDT [address] [address] XRay Report Signed Patient: Joelle Myers I MR#: [id number] 426 : 1960 Acct:[id number] Age/Sex: 65 / F ADM Date: 08/06/25 [facility]: Ramez Newman MD Ordering Physician: Ramez Newman MD Date of Service: 08/06/25 Procedure(s): XR shoulder LT min 2V Accession Number(s): [id number] cc: Ramez Newman MD; NEIL BERNARD NP [...] 08/06/25 1036 DD/ 1030 TD/TT: 08/06/25 1031 Gallery Manager: Procedure Note Donotuseinterpreter, Image - 08/06/2025 [facility] [address] [place] [address] XRay Report Signed Patient: Joelle Myers IMR#: [id number] : 1960cct:[id number] Age/Sex: 65 / FADM Date: 08/06/25 Loc: CX Attending Dr: Ramez Newman MD Ordering Physician: Ramez Newman MD Date of Service: 08/06/25 Procedure(s): XR shoulder LT min 2V Accession Number(s): [id number] cc: Ramez Newman MD; NEIL BERNARD NP [...] 08/06/25 1036 DD/ 1030 TD/TT: 08/06/25 1031 Gallery Manager: Ramez Perkins MD IMG XR PROCEDURES Quentin laura Result - Final * (ABNORMAL) POCT glucose manually resulted (08/06/2025 10:05 AM EDT) Only the most recent of2 resultswithin the time period is included. [facility] Glucose Blood, POC 332(A) 60 - 200 mg/dL QC Media Lot # [id number] Lot# Expiration Date [id number] Blood Capillary blood specimen / Unknown 08/06/2025 10:05 AM EDT Ramez Perkins MD POINT OF CARE TEST EN TER/EDIT ORDERABLES Final Result * (ABNORMAL) POCT glycosylated hemoglobin (Hgb A1c) (08/06/2025 10:04 AM EDT) Hemoglobin A1C 8.4(A) 4.0 - 5.7 % QC Media Lot # [id number] Lot# Expiration Date ,[id number] Blood Capillary blood specimen / Unknown 08/06/2025 10:04 AM EDT Ramez Perkins MD POINT OF CARE TEST EN TER/EDIT ORDERABLES Final Result * NM heart perfusion SPECT stress and rest (07/24/2025 8:55 AM EDT) Anatomical Region Laterality Modality Body Nuclear Medicine 07/24/2025 8:55 AM EDT Narrative 07/24/2025 12:32 PM EDT [place] [address] Nuclear Medicine Report Signed Patient: Joelle Myers I MR#: [id number] 426 : 1960 Acct:[id number] Age/Sex: 65 / F ADM Date: 07/23/25 Loc: [facility] 486-[address]: Georgette Cohen MD Ordering Physician: Rashid Recinos MD Date of Service: 07/24/25 Procedure(s): NM ramon perf SPECT rest str Accession Number(s): [id number] cc: NEIL BERNARD ROTOGRAVURE PRESS OPERATOR; Rashid Recinos MD Reason for Exam: chest pain Lexiscan Myocardial perfusion study Indication: Chest pain Technique: The patient was brought in for a Lexiscan perfusion study on 07/24/2025 and was injected 0.4 mg of Lexiscan intravenously. Within a minute of this injection 30 mCi of sestamibi was given intravenously. Images were obtained using the SPECT gamma camera interlaced with the gating device. Images were obtained in supine position. Resting perfusion study was performed on 07/24/2025. Patient was administered 10 mCi of sestamibi intravenously at rest. Images were then obtained in supine position. Total DLP 80 mGy-cm. Images were processed with the software and compared side to side in short axis, horizontal long axis and vertical long axis views. Findings: Raw aquisition reviewed. The stress perfusion study showed mildly reduced tracer uptake in the distal part of inferolateral wall. Possibly improvement CT attenuation correction. The gated study shows normal LV systolic function with calculated LVEF of 57%. LV cavity is normal in size. The gated study shows normal wall thickening and contraction of segments. Resting study shows decreased tracer uptake along the inferior wall as well as mid anterior wall. There is adjacent subdiaphragmatic tracer uptake near the inferior wall. Perfusion defects could be artifactual. Gating at rest reveals normal wall motion with ejection fraction at 39%, but visually higher. The findings are consistent with no clear reversible or fixed perfusion defects. NM/NM ramon perf SPECT rest str Impression: 1. Myocardial perfusion imaging study shows probably normal myocardial perfusion. 2. Gated LVEF is 57% during stress. 3. Transient ischemic dilatation not present. EKG component of the test reported separately. Electronically signed by: Rashid Recinos MD 07/24/2025 12:30 PM EDT RP Workstation: PreApps Dictated By: Rashid Recinos MD Signed By: <Electronically signed by Rashid Recinos MD in OV> 07/24/25 1230 DD/ 0855 TD/TT: 07/24/25 1115 Gallery Manager: Procedure Note Donotuseinterpreter, Image - 07/24/2025 [place] [address] Nuclear Medicine Report Signed Patient: Joelle Myers IMR#: [id number] : 1960cct:[id number] Age/Sex: 65 / FADM Date: 07/23/25 Loc: [facility] 486-[address]: Georgette Cohen MD Ordering Physician: Rashid Recinos MD Date of Service: 07/24/25 Procedure(s): NM ramon perf SPECT rest str Accession Number(s): [id number] cc: NEIL BERNARD ROTOGRAVURE PRESS OPERATOR; Rashid Recinos MD Reason for Exam: chest pain Lexiscan Myocardial perfusion study Indication: Chest pain Technique: The patient was brought in for a Lexiscan perfusion study on 07/24/2025 and was injected 0.4 mg of Lexiscan intravenously. Within a minute of this injection 30 mCi of sestamibi was given intravenously. Images were obtained using the SPECT gamma camera interlaced with the gating device. Images were obtained in supine position. Resting perfusion study was performed on 07/24/2025. Patient was administered 10 mCi of sestamibi intravenously at rest. Images were then obtained in supine position. Total DLP 80 mGy-cm. Images were processed with the software and compared side to side in short axis, horizontal long axis and vertical long axis views. Findings: Raw aquisition reviewed. The stress perfusion study showed mildly reduced tracer uptake in the distal part of inferolateral wall. Possibly improvement CT attenuation correction. The gated study shows normal LV systolic function with calculated LVEF of 57%. LV cavity is normal in size. The gated study shows normal wall thickening and contraction of segments. Resting study shows decreased tracer uptake along the inferior wall as well as mid anterior wall. There is adjacent subdiaphragmatic tracer uptake near the inferior wall. Perfusion defects could be artifactual. Gating at rest reveals normal wall motion with ejection fraction at 39%, but visually higher. The findings are consistent with no clear reversible or fixed perfusion defects. NM/NM ramon perf SPECT rest str Impression: 1. Myocardial perfusion imaging study shows probably normal myocardial perfusion. 2. Gated LVEF is 57% during stress. 3. Transient ischemic dilatation not present. EKG component of the test reported separately. Electronically signed by: Rashid Recinos MD 07/24/2025 12:30 PM EDT Dictated By: Rashid Recinos MD Signed By: <Electronically signed by Rashid Recinos MD inOV> 07/24/25 1230 DD/ 0855 TD/TT: 07/24/25 1115 Gallery Manager: [facility] External Provider IMG NM PROCEDURES Edited Result - Final * ECG 12 lead (07/23/2025 10:58 AM EDT) Nancy Winter MD - 07/23/2025 10:58 AM EDT NSR at 77bpm. No ischemia or infarction. Nancy Ma MD ECG ORDERABLES Final Result * Culture, Urine, Routine (06/27/2025 2:37 PM EDT) Urine Urine specimen obtained by clean catch procedure / Unknown 06/27/2025 2:37 PM EDT 06/27/2025 4:25 PM EDT Comment:UACC Narrative [facility] - 06/29/2025 10:59 AM EDT Urine Culture No growth. Specimen Source: Urine clean catch Neil Bernard [facility] MICROBIOLOGY - GENERAL ORDER BARRERA Final Result Performing Organization Address [facility] Co de Phone Number [facility] [address] [place] [phone] * (ABNORMAL) Magnesium (06/27/2025 2:37 PM EDT) Only the most recent of2 resultswithin the time period is included. Magnesium 1.2(LL) 1.6 - 2.6 mg/dL [facility] Comment:Critical value for t est(s):MAGS Results called to and readback by:DEBBIE Jones Person calling: [employer] Date: [id number] Blood Venous blood specimen / Unknown 06/27/2025 2:37 PM EDT 06/27/2025 4:20 PM EDT us Neil Bernard [facility] BLOOD ORDERABLES Final Resul t Performing Organization Address [facility] Co de Phone Number [facility] [address] [place], [place] [phone] * BI US Breast Limited Left (06/11/2025 10:30 AM EDT) Anatomical Region Laterality Modality Breast Left Ultrasound 06/11/2025 10:3 0 AM EDT Narrative 06/11/2025 10:59 AM EDT [address] [place] [address] Ultrasound Report Signed Patient: Joelle Myers I MR#: [id number] : 1960 Acct:[id number] Age/Sex: 64 / F ADM Date: 06/11/25 Loc: HO.MAMMO Attending Dr: Neil Bernard NP Ordering Physician: NEIL BERNARD NP Date of Service: 06/11/25 Procedure(s): US breast LT limited Accession Number(s): [id number] cc: NEIL BERNARD NP EXAMINATIONS: 1. MM [...] 06/11/25 1056 DD/ 1030 TD/TT: 06/11/25 1049 Gallery Manager: Procedure Note Donotuseinterpreter, Image - 06/11/2025 [facility] [address] [place], [place] [address] Ultrasound Report Signed Patient: Joelle Myers IMR#: [id number] : 1960cct:[id number] Age/Sex: 64 / FADM Date: 06/11/25 Loc: HO.MAMMO Attending Dr: Neil Bernard NP Ordering Physician: NEIL BERNARD NP Date of Service: 06/11/25 Procedure(s): US breast LT limited Accession Number(s): [id number] cc: NEIL BERNARD NP EXAMINATIONS: 1. MM [...] 06/11/25 1056 DD/ 1030 TD/TT: 06/11/25 1049 Gallery Manager: us Neil Bernard ANP IMG US PROCEDURES Edited Result - Final * BI Mammogram Diagnostic Tomosynthesis Bilateral (06/11/2025 10:05 AM EDT) Anatomical Region Laterality Modality Breast Bilateral Mammography 06/11/2025 10:0 5 AM EDT Narrative 06/11/2025 10:59 AM EDT [facility] [address] [place], [place] [address] Mammography Report Signed Patient: Joelle Myers I MR#: [id number] : 1960 Acct:[id number] Age/Sex: 64 / F ADM Date: 06/11/25 Loc: HO.MAMMO Attending Dr: Neil Bernard NP Ordering Physician: NEIL BERNARD NP Results: 2Benign Ashu ho Date of Service: 06/11/25 Follow Up: 1 Year From Orig inal Mammogram Procedure(s): MM tomosynthesis diagnostic BI Accession Number(s): [id number] cc: NEIL BERNARD NP EXAMINATIONS: 1. MM [...] 06/11/25 1056 DD/ 1005 TD/TT: 06/11/25 1030 Gallery Manager: Procedure Note Donotuseinterpreter, Image - 06/11/2025 [facility] [address] [place], [place] [address] Mammography Report Signed Patient: Joelle Myers IMR#: [id number] : 1960cct:[id number] Age/Sex: 64 / FADM Date: 06/11/25 Loc: HO.MAMMO Attending Dr: Neil Bernard NP Ordering Physician: NEIL BERNARD NPResults: 2Benign Ashu dingadrian Date of Service: 06/11/25Follow Up: 1 Year From Orig inal Mammogram Procedure(s): MM tomosynthesis diagnostic BI Accession Number(s): [id number] cc: NEIL BERNARD NP EXAMINATIONS: 1. MM [...] Lon Otero MD 06/11/2025 10:56 AM EDT Workstation: [employer] Dictated By: Lon Otero MD Signed By: <Electronically signed by Lon Otero MD in OV> 06/11/25 1056 DD/ 1005 TD/TT: 06/11/25 1030 Gallery Manager: us Neil Bernard ANP IMG BI PROCEDURES Edited Result - Final * CT Lung Screening Low dose (06/04/2025 4:30 PM EDT) Anatomical Region Laterality Modality Lung Computed Tomogra phy 06/04/2025 4:30 PM EDT Narrative 06/04/2025 4:31 PM EDT [place] [address] [address] Scan Report Signed Patient: Joelle Myers I MR#: [id number] : 1960 Acct:[id number] Age/Sex: 64 / F ADM Date: 06/03/25 Loc: .CT Attending Dr: Tracey Moreno PA-C Ordering Physician: Tracey Moreno PA-C Date of Service: 06/03/25 Procedure(s): CT lung screening Accession Number(s): [id number] cc: Tracey Moreno PA-C; NEIL BERNARD NP Report Number: [id number]: Total DLP = 39.00 mGy-cm CLINICAL HISTORY: [...] CHEST 1 VIEW - 09/17/24 15:[address]/CA/SR - CT LUNG SCREENING - 05/30/24 13:[address]/CA/SR - CT LUNG SCREENING - 05/04/24 12:02 [...] 06/04/25 1631 DD/ 1630 TD/TT: 06/04/25 1630 Gallery Manager: Procedure Note Donotuseinterpreter, Image - 06/04/[address] [address] [address] Scan Report Signed Patient: Joelle Myers [facility]#: [id number] : 1Acct:[id number] Age/Sex: 64 / FADM Date: 06/03/25 Loc: HO.CT Attending Dr: Tracey Moreno PA-C Ordering Physician: Tracey Moreno PA-C Date of Service: 06/03/25 Procedure(s): CT lung screening Accession Number(s): [id number] cc: Tracey Moreno PA-C; NEIL BERNARD NP Report Number: [id number]: Total DLP = 39.00 mGy-cm CLINICAL HISTORY: [...] CHEST 1 VIEW - 09/17/24 15:[address]/CA/SR - CT LUNG SCREENING - 05/30/24 13:[address]/CA/SR - CT LUNG SCREENING - 05/04/24 12:02 EDT Findings: Lung nodules RUL: 2 mm nodule image 22 previously 3 mm RML: None RLL: None ASRAH: Stable 3 mm nodule posteriorly image 32 [...] 06/04/25 1631 DD/ 1630 TD/TT: 06/04/25 1630 Gallery Manager: [facility] External Provider IMG CT PROCEDURES Final Result * (ABNORMAL) POCT JAMES-14 Urine [...] - 05/17/2025 11:28 AM EDT .UTOX cup Lot#[id number] Exp. 08/13/26 Internal Pass Control Neil CALDWELL POINT OF CARE TEST ENTER/EDIT OR DERABLES Final Result * (ABNORMAL) POCT A1C (05/15/2025 11:01 AM EDT) Hemoglobin A1C 8.3(A) 4.0 - 5.7 % QC Media Lot # [id number] Lot# Expiration Date [id number] Blood 05/15/2025 11:0 1 AM EDT Neil Bernard ANP POINT OF CARE TEST ENTER/EDIT OR DERABLES Final Result * Hm Colonoscopy (01/09/2025 8:51 AM EST) Historical Provider HEALTH MAINTENANCE Final Result * Lipid Panel, Standard (12/17/2024 6:58 AM EST) Triglycerides 58 <150 mg/dL [facility] Comment:Desirable Triglyceri de: less than 150 mg/dLBorderline High Triglyceride 150-199 mg/dLHigh Triglyceride: 200-499 mg/dLVery High Triglyceride: greater than or equal to 5OO mg/dL Cholesterol 106 <200 mg/dL [facility] Comment:Desirable Cholestero l: less than 200 mg/dLBorderline High Cholesterol: 200-239 mg/dLHigh Cholesterol: greater than 239 mg/dL LDL Cholesterol Calculated 45 <100 mg/dL [facility] Comment:Desirable LDL: less than 100 mg/dLNear Optimal/Above Optimal LDL: 110- 129 mg/dLBorderline High LDL: 130-159 mg/dLHigh LDL: 160-189 mg/dLVery High LDL: greater than or equal to 190 mg/dL HDL Cholesterol 50 >40 mg/dL [facility] Comment:Desirable HDL: great er than 40 mg/dL Note: This HDL assay may give artificially low results in patients with liver disease. 12/17/2024 6:58 AM EST 12/17/2024 6:58 AM EST Neil Bernard [facility] BLOOD ORDERABLES Final Resul t [facility] [address] [place] [phone] * Albumin, Random Urine W/Creatinine (10/12/2024 9:52 AM EST) Creatinine, Urine 41.64 mg/dL [facility] Microalbumin Urine 6.0 mg/L [facility] Microalbum Creatinine Ratio Ur 14.4 <30 ug/mg cr [facility] Comment:Albumin/Creatinine R atio Reference Ranges: Normal: < 30 ug/mg creatinine Microalbuminuria: 30 - 300 ug/mg creatinineClinical Albuminuria: > 300 ug/mg creatinine Urine (Urine, Random) 10/12/2024 9:52 AM EST 10/12/2024 10:49 AM EST us Neil CALDWELL LAB URINE ORDERABLES Final Resul t [facility] [address] [place] [address] [phone] from Last 3 Months or Most Recently Relevant to Health Maintenance Insurance [facility] [employer] STAND ADULT Care Teams Procurement Technician Relationship Specialty Start Date End Date Neil Bernard ANP [address] [place] [address] PCP - General Family Medicine 07/07/20 Vaishali Minor PharmD [address] [place] [address] Pharmacist Internal Medicine 10/29/24 Clarence Perkins Pick And Shovel WorkerChainstitch Elastic Attacher 06/24/25
== END 2025-08-06 10:03 | disposition home or self-care (01) ==
LOC: HO.HHCX 10:02
PROVIDERS: PCP Nurse Practitioner Primary Care; Visit Provider Internal Medicine
DX: M25.512 Pain in left shoulder (principal)
CPT/HCPCS: 73030; 73060

== ENCOUNTER → 2025-08-06 10:14 | Outpatient (BNV) | payer MEDICAID, SELFPAY | PROVIDERS: PCP Nurse Practitioner Primary Care; Visit Provider Radiology Diagnostic Radiology | DX: M25.512 Pain in left shoulder (principal); M79.602 Pain in left arm; W19.XXXA Unspecified fall, initial encounter | CPT/HCPCS: 73030; 73060 ==

== ENCOUNTER → 2025-08-21 10:44 | Outpatient (REF) | payer MEDICAID, SELFPAY ==
--- NOTE | 2025-08-21 10:47 | CA_ITS ---
Transthoracic Echocardiogram Patient (Last, First, Middle): Joelle Myers I Gender: F Date of : 1960 Age: 65 Procedure Date: 08/21/2025 Procedure Type: Transthoracic Echocardiogram Location: OP Height: 154.94 cm Weight: 66.68 kg BSA: 1.66 m2 Heart Rate: bpm BP: 108 / 68 mmHg Biomedical Electronics Technician: TO Referring MD: Rashid Recinos MD Down Filler: Moses Nowak MD Symptoms: I25.10 - Atherosclerotic heart disease of [place] coronary artery without... Study Quality: Fair/Contrast ECG Rhythm: Sinus Conclusions: - 1. Low normal LV ejection fraction 50-55% 2. Normal cardiac valvular Dopplers 3. No gross pericardial effusion Findings Procedure Information Contrast agent, definity, is being given per protocol without apparent complications. Left Ventricle Normal left ventricular cavity size. There is normal left ventricular wall thickness. The left ventricular systolic function is low normal. The visually estimated ejection fraction is between 50-55%. Regional wall motion abnormalities can not be excluded due to suboptimal endocardial definition. Spectral Doppler is indicative of a normal filling pattern. Right Ventricle Normal right ventricular cavity size and systolic function. Atria The left atrium is normal in size. Interatrial shunt cannot be excluded. The right atrium is normal in size. Aortic Valve The aortic valve was not well visualized. There is no aortic valve stenosis. There is no aortic valve regurgitation. Mitral Valve Likely normal mitral valve structure and function. There is trace mitral valve regurgitation. There is no mitral valve stenosis. Pulmonic Valve The pulmonic valve was not well visualized. Tricuspid Valve Likely normal tricuspid valve structure and function. Tricuspid regurgitation envelope is inadequate for calculation of right ventricular systolic pressure. Normal right atrial pressure. Great Vessels All visible segments of the aorta are normal in size. The pulmonary artery was not well visualized. There is no dilatation of the ascending aorta measuring 3.10 cm. Venous The inferior vena cava is normal in size and collapses greater than 50% with inspiration. Pericardium/Pleural There is no evidence of pericardial effusion. Prior Study Comparison Changes noted compared to prior study dated: 04/05/2023. LV function maybe marginally reduced Measurements 2D Linear Measurements IVSd: 0.73 0.6-0.9/0.6-1.0 cm LVIDd: 4.86 3.9-5.3/4.2-5.9 cm LVIDd Index: 2.93 2.4-3.2/2.2-3.1 cm/m2 LVIDs: 3.17 2.0-3.6 cm LVPWd: 0.79 0.7-1.1 cm LA Diam: 3.40 2.7-3.8/3.0-4.0 cm LAIDs Index: 2.05 1.5-2.3 cm/m2 LV Mass: 149.94 67-162/88-224 g LV Mass Index: 90.32 43-95/49-115 g/m2 LVOT Diam: 2.00 3.0+(-)1.3 cm 2D Systolic Function EF 4C: 50.60 >55% EF 2C: 54.60 >55% EF BiP: 52.20 >55% Mitral Valve MV Pk E: 0.51 MV PK A: 0.73 MV Decel Time: 215.00 E/A: 0.70 E'Lateral: 5.98 E'Medial: 4.90 E/E' Med: 10.30 E/E' Lat: 8.50 PHT: 63.00 MVA PHT: 3.49 Decel Jefferson: 2.35 Aortic Valve AoV Pk Beny: 1.49 AoV Mn Beny: 1.00 AoV VTI: 0.34 AoV Pk Grad: 9.00 Aov Mn Grad: 5.00 BRIANNA Cont.VTI: 2.33 LVOT LVOT Pk Beny: 1.19 LVOT Mn Beny: 0.80 LVOT VTI: 0.25 LVOT Pk Grad: 6.00 LVOT Mn Grad: 3.00 LVOT Diam: 2.00 LVOT Area: 3.14 Diastolic Function MV Pk E: 0.51 MV Pk A: 0.73 E/A: 0.70 E'Medial: 4.90 E/E' Med: 10.30 E' Laterial: 5.98 E/E' Lat: 8.50 Right Ventricle TAPSE (mm): 18.20 TVS' Beny: 12.00 Tricuspid Valve RA Press: 3.00 Great Vessels Aorta Sinus of Valsalva: 3.12 2.0-3.5 cm Ao Asc: 3.10 2.1-3.4 cm Updated in Other Vendor System with Status of Final Moses Nowak MD electronically signed on 08/21/2025 2:11:14 PM with status of Final
--- OUTSIDE RECORDS SUMMARY | 2025-08-21 12:53 | XMS_ITS | Encounter Summary ---
Author Organization [employer] Address [address] [facility] [address]t [place] [address] Care Team Providers Care Supervisor Pressing Department Name Role Phone Sepideh Hopkins Primary Care Provider [phone] Vaishali Minor PharmD Unavailable Encounter Details Date Type Department Care Team (Latest Contact Info) Description 07/23/2022 Abstract [facility] CONVERSIONS Dental, Provider, DDS Social History Tobacco [...] Care Team (Late st Contact Info) Description 08/30/2025 10:30 AM EDT Clinical Support [facility] MEDICINE [address] [place] [phone] Shanelle Miller RN [address] [place] [address] 09/23/2025 11:00 AM EST Medication Management [facility] MED[facility]INE [address] [place] [phone] Vaishali Minor, PharmD [address] [place] [address] 10/01/2025 9:15 AM EST Office Visit [facility] MEDICINE [address] [place] [phone] Sepideh Hopkins ANP [address] [place] [address] 01/02/2026 10:00 AM EST Office Visit [facility] ADULT DENTAL [address] [place] [address] Linsey Dawkins documented as of this encounter Visit Diagnoses Not on filedocumented in this encounter Care Teams Supervisor Pressing Department Relationship Specialty Start Date End Date Sepideh Hopkins ANP [address] [place] [address] PCP - General Family Medicine 07/07/20 Vaishali Minor PharmD [address] [place] [phone] Pharmacist Internal Medicine 10/29/24 Clarence Perkins Punch Press FeederOceanographer Geological 06/24/25 documented as of this encounter
--- OUTSIDE RECORDS SUMMARY | 2025-08-21 12:53 | XMS_ITS | Encounter Summary ---
Author Organization [employer] Address [address] [facility] [address]t [place] [address] Care Team Providers Care Investigator Utility Bill Complaints Name Role Phone Sepideh Hopkins Primary Care Provider [phone] Vaishali Minor PharmD Unavailable [phone] Reason for Visit * Reason Comments Med Refill Encounter Details Date Type Department Care Team ([facility] st Contact Info) Description 08/21/2025 Refill [facility] MEDICINE [address] [place], [place] [phone] Sepideh Hopkins ANP [address] [place] [address] Mixed anxiety and depressive disorder; Diabetic polyneuropathy associated with type 2 diabetes mellitus (HCC); Allergic rhinitis, unspecified seasonality, unspecified trigger Social History Tobacco Use Types Packs/Day Years [...] Description 08/30/2025 10:30 AM EDT Clinical Support [facility] [address] [place] [phone] Shanelle Miller RN [address] [place] [address] 09/23/2025 11:00 AM EST Medication Management [facility] MED[facility]INE [address] [place] [address] Vaishali Minor, PharmD [address] [place] [phone] 10/01/2025 9:15 AM EST Office Visit [facility] [address] [place] [phone] Sepideh Hopkins, JAVI [address] [place] [address] 01/02/2026 10:00 AM EST Office Visit [facility] ADULT DENTAL [address] [place] [phone] Linsey Dawkins documented as of this encounter Visit Diagnoses Diagnosis Mixed anxiety and depressive disorder Dysthymic disorder Diabetic polyneuropathy associated with type 2 diabetes mellitus (HCC) Allergic rhinitis, unspecified seasonality, unspecified trigger documented in this encounter Additional Health Concerns Assessment Noted Time PHQ-9 Depression Total Score: 5 11/23/19 25 1:05 PM EST documented as of this encounter Care Teams Investigator Utility Bill Complaints Relationship Specialty Start Date End Date Sepideh Hopkins ANP [address] [place] [address] PCP - General Family Medicine 07/07/20 Vaishali Minor PharmD [address] [place] [address] Pharmacist Internal Medicine 10/29/24 Clarence Perkins Cultural Anthropology ProfessorDeputy Chief Counsel 06/24/25 documented as of this encounter
--- OUTSIDE RECORDS SUMMARY | 2025-08-21 12:53 | XMS_ITS | Clinical Summary ---
Author Organization [facility] Facility Address [address] [place] [address] Care Team Providers Care Brand Leader Name Role Phone Karlos Adame [facility] Primary Care Provider Family History [...] Name Priority Date/Time Associated Diagnosis Comments LAB DRYWALLER Routine 10/19/2017 12:00 AM EST from Last 3 Months or Most Recently Relevant to Health Maintenance Results * Lab Coat Padder (10/19/2017 12:00 AM EST) Hemoglobin A1C 5.9 % [facility] 10/19/2017 [facility] Conversion LAB [id number] LICITED RESULTS Final Result [facility] from Last 3 Months or Most Recently Relevant to Health Maintenance Insurance Medicaid [place] Care Teams Brand Leader Relationship Specialty Start Date End Date Karlos Adame FNP [address] [place] [address], [address] [place] [address] PCP - General 11/17/20
--- OUTSIDE RECORDS SUMMARY | 2025-08-21 12:53 | XMS_ITS | Encounter Summary ---
Author Organization [employer] Address [address] [facility] [address]t [place] [address] Care Team Providers Care Door To Door Selling Agent Name Role Phone Sepideh Hopkins Primary Care Provider [phone] Vaishali Minor PharmD Unavailable Encounter Details Date Type Department Care Team (Late st Contact Info) Description 10/04/2022 Abstract [facility] ADULT DENTAL [address] [place] [address] Dental, Provider, DDS Social History Tobacco Use [...] Description 08/30/2025 10:30 AM EDT Clinical Support [facility] MEDICINE [address] [place] [address] Shanelle Miller, MENDEL [address] [place] [address] 09/23/2025 11:00 AM EST Medication Management [address] [address] Vaishali Minor, PharmD [address] [place] [address] 10/01/2025 9:15 AM EST Office Visit [address] [address] Sepideh Hopkins ANP [address] [place] [address] 01/02/2026 10:00 AM EST Office Visit [facility] ADULT DENTAL [address] [place] [address] Linsey Dawkins documented as of this encounter [...] on filedocumented in this encounter Care Teams Door To Door Selling Agent Relationship Specialty Start Date End Date Sepideh Hopkins ANP [address] [place] [address] PCP - General Family Medicine 07/07/20 Vaishali Minor PharmD [address] [place] [address] Pharmacist Internal Medicine 10/29/24 Clarence Perkins Baller TenderRetirement Plan Specialist 06/24/25 documented as of this encounter
--- OUTSIDE RECORDS SUMMARY | 2025-08-21 12:53 | XMS_ITS | Encounter Summary ---
Author Organization [employer] Address [address] [facility] [address] [place] [address] Care Team Providers Care Marketing Production Manager Name Role Phone Sepideh Hopkins JAVI Primary Care Provider [phone] Vaishali Minor PharmD Unavailable [phone] Encounter Details Date Type Department Care Team (Late st Contact Info) Description 01/10/2025 Orders Only [facility] MED & PEDS [address] [place], [place] [phone] Provider, MD Jan Social History Tobacco Use [...] Upcoming Encounters Date Type Department Care Team ([facility] Contact Info) Description 08/30/2025 10:30 AM EDT Clinical Support [facility] MEDICINE [address] [place] [phone] Shanelle Miller RN [address] [place] [address] 09/23/2025 11:00 AM EST Medication Management [facility] MEDICINE [address] [place] [phone] Vaishali Minor, PharmD [address] [place] [address] 10/01/2025 9:15 AM EST Office Visit [facility] MEDICINE [address] [place] [phone] Sepideh Hopkins ANP [address] [place] [address] 01/02/2026 10:00 AM EST Office Visit [facility] ADULT DENTAL [address] [place] [phone] Linsey Dawkins documented as of this encounter [...] documented as of this encounter Care Teams Marketing Production Manager Relationship Specialty Start Date End Date Sepideh Hopkins ANP [address] [place] [address] PCP - General Family Medicine 07/07/20 Vaishali Minor PharmD [address] [place] [address] Pharmacist Internal Medicine 10/29/24 Clarence Perkins Adventure Education TeacherManager Sap 06/24/25 documented as of this encounter
--- OUTSIDE RECORDS SUMMARY | 2025-08-21 12:54 | XMS_ITS | Encounter Summary ---
Author Organization [employer] Address [address] [facility] [address] [place] [address] Care Team Providers Care Electronic Warfare Technical Name Role Phone Sepideh Hopkins ANP Primary Care Provider [phone] Vaishali Minor PharmD Unavailable Encounter Details Date Type Department Care Team (Late Contact Info) Description 10/03/2023 Orders Only [facility] MEDICINE [address] [place] [phone] Sepideh Hopkins ANP [address] [place] [phone] Social History Tobacco Use Types Packs/Day Years [...] Description 08/30/2025 10:30 AM EDT Clinical Support [address] [address] Shanelle Miller RN [address] [place] [address] 09/23/2025 11:00 AM EST Medication Management [facility] MEDICINE [address] [place] [address] Vaishali Minor, PharmD [address] [place] [address] 10/01/2025 9:15 AM EST Office Visit [facility] MEDICINE [address] [place] [address] Sepideh Hopkins ANP [address] [place], [place] [phone] 01/02/2026 10:00 AM EST Office Visit [facility] ADULT DENTAL [address] [place] [address] [phone] Linsey Dawkins documented as of this encounter Visit Diagnoses Not on filedocumented in this encounter Care Teams Electronic Warfare Technical Relationship Specialty Start Date End Date Sepideh Hopkins ANP [address] [place] [phone] PCP - General Family Medicine 07/07/20 Vaishali Minor PharmD [address] [place] [phone] Pharmacist Internal Medicine 10/29/24 Clarence Perkins Owner/OperatorLapidarist 06/24/25 documented as of this encounter"
--- OUTSIDE RECORDS SUMMARY | 2025-08-21 12:54 | XMS_ITS | Encounter Summary ---
Author Organization [employer] Address [address] [facility] [address] [place] [address] Care Team Providers Care Van Helper Name Role Phone Sepideh Hopkins Primary Care Provider [phone] Vaishali Minor PharmD Unavailable [phone] Reason for Visit * Reason Comments Med Refill Encounter Details Date Type Department Care Team (Late Contact Info) Description 06/16/2023 Refill [facility] [address] [place] [address] [phone] Tisha Cornelius FNP Social History Tobacco Use [...] Description 08/30/2025 10:30 AM EDT Clinical Support [facility] [address] [place] [address] Shanelle Miller RN [address] [place], [place] [phone] 09/23/2025 11:00 AM EST Medication Management [facility] [address] [place] [address] Vaishali Minor, PharmD [address] [place] [address] 10/01/2025 9:15 AM EST Office Visit [facility] [address] [place] [address] Sepideh Hopkins ANP [address] [place] [address] 01/02/2026 10:00 AM EST Office Visit [facility] ADULT DENTAL [address] [place] [address] Linsey Dawkins documented as of this encounter Visit Diagnoses Not on filedocumented in this encounter Care Teams Van Helper Relationship Specialty Start Date End Date Sepideh Hopkins ANP [address] [place] [phone] PCP - General Family Medicine 07/07/20 Vaishali Minor PharmD [address] [place] [address] Pharmacist Internal Medicine 10/29/24 Clarence Perkins ToolsmithOffbearer 06/24/25 documented as of this encounter
--- OUTSIDE RECORDS SUMMARY | 2025-08-21 12:54 | XMS_ITS | Clinical Summary ---
Author Organization [employer] Address [address] [facility] 7[address] [place] [address] Care Team Providers Care Non Destructive Testing Inspector Name Role Phone Neil Bernard JAVI Primary Care Provider [phone] Vaishali Minor PharmD Unavailable [phone] Allergies No known active allergies Medications * [...] by mouth once daily Active sodium chloride ([place]) 0.65 % nasal sprayIndications :Nasal congestion 2 [...] BY MOUTH EVERY MORNING 90 tablet 1 Active naloxone (Narcan) 4 mg/0.1 mL nasal spray Administer 1 spray (4 mg) into affected nostril(s) if needed for opioid reversal. May repeat every 2-3 minutes if needed, alternating nostrils, until medical assistance becomes available. 2 each 2 2025 Active apixaban (Eliquis) 2.5 MG tabletIndication [...] BY MOUTH EVERY MORNING 90 tablet 1 Active gabapentin (Neurontin) 300 MG capsuleIndicatio ns:Diabetic polyneuropathy associated with type 2 diabetes mellitus (HCC) Take 2 capsules AM and 2 capsules at bedtime 120 capsule 2 Active Continuous Glucose Sensor (FreeStyle Dagmar 2 Plus Sensor) miscIndications: Type 2 diabetes mellitus with hyperlipidemia (HCC) 1 each Use as directed. 2 each Active lidocaine (Lidoderm) 5 % patchIndications :Neck pain APPLY 1 PATCH TOPICALLY TO SKIN, LEAVE ON FOR 12 HOURS AND OFF FOR 12 HOURS DIRECTED 30 patch 2 Active magnesium oxide (Mag-Ox) 400 (240 Mg) MG tablet Take 400 mg by mouth in the morning. Active nitroglycerin (Nitrostat) 0.3 MG SL tablet DISSOLVE 1 TABLET UNDER THE TONGUE EVERY 5 MINUTES NEEDED FOR ANGINA FOR 10 DAYS. NO MORE THAN 3 DOSES PER EPISODE. CALL 911 IF NO RELIEF AFTER FIRST DOSE 025 Active albuterol 108 (90 Base) MCG/ACT inhalerIndicatio ns:Moderate persistent asthma without complication Inhale 2 puffs every 4 (four) hours. 18 g 5 025 Active traMADol (Ultram) 50 MG tabletIndication s:Chronic bilateral low back pain without sciatica TAKE 1 TABLET BY MOUTH ONCE DAILY NEEDED FOR SEVERE PAIN 20 tablet 025 Active Tirzepatide (Mounjaro) 5 MG/0.5ML solution auto-injectorInd ications:Type 2 diabetes mellitus with hyperlipidemia (HCC) Inject 5 mg under the skin every 7 (seven) days. 2 mL 025 Active insulin glargine (Lantus SoloStar) 100 UNIT/ML penIndications:T ype 2 diabetes mellitus with hyperlipidemia (HCC) INJECT SUBCUTANEOUSLY 34 UNITS ONCE DAILY 15 mL 1 025 Active nitroglycerin (Nitrostat) 0.4 MG SL [...] 30 UNITS ONCE DAILY 15 mL 025 2024 Discontinued(R eorder (will not trigger notification to Pharmacy)) Ozempic, 2 MG/DOSE, 8 MG/3ML solution pen-injectorIndi cations:Type 2 diabetes mellitus with hyperlipidemia (HCC) Inject 2 MG SUBCUTANEOUSLY EVERY 7 DAYS IN THE ABDOMEN, THIGHS OR UPPER ARM. ROTATE INJECTION SITES. 3 mL 3 025 2024 Discontinued(F ormulary change) traMADol (Ultram) 50 MG tabletIndication s:Chronic bilateral low back pain without sciatica Take 1 tablet (50 mg) by mouth if needed each day for severe pain. 20 tablet 025 2024 Discontinued Tirzepatide (Mounjaro) 2.5 MG/0.5ML solution auto-injectorInd ications:Type 2 diabetes mellitus with hyperlipidemia (HCC) Inject 2.5 mg under the skin every 7 (seven) days. 2 mL 025 2024 Discontinued(D ose adjustment) Hospital, Clinic, [...] here for a HDF Recently admiited to [facility] from 07/23/25-07/24/25 Patient presented for evaluation of [...] Encounters Date Type Department Care Team Description 08/21/2025 Refill [facility] [address] [place] [address] Neil Bernard ANP Mixed anxiety and depressive disorder; Diabetic polyneuropathy associated with type 2 diabetes mellitus (HCC); Allergic rhinitis, unspecified seasonality, unspecified trigger 08/20/2025 Refill [facility] [address] [place] [address] Dina Kulkarni MD Allergic rhinitis, unspecified seasonality, unspecified trigger 08/13/2025 Telephone [facility] [address] [place] [address] Neil Bernard ANP Results 08/07/2025 Travel 08/06/2025 9:30 AM EDT Office Visit [facility] [address] [place] [phone] Ramez Schroeder MD Hospital discharge follow-up (Primary Dx); Acute pain of left shoulder; Moderate persistent asthma without complication; Encounter for immunization 08/06/2025 Refill [facility] [address] [place] [address] Shanelle Miller, retail wireless sales representative bilateral low back pain without sciatica 08/06/2025 Refill [facility] [address] [place] [address] Neil Bernard ANP Chronic bilateral low back pain without sciatica 08/06/2025 Travel 08/05/2025 Telephone [facility] [address] [place] [address] Neil Bernard ANP Med Refill 08/05/2025 Telephone [facility] [address] [place] [address] [phone] Ramez Schroeder MD chart prep 07/31/2025 Telephone [facility] [place] [address] Vaishali Minor, PharmD Triage 07/30/2025 Telephone [facility] [place], [place] [address] Vaishali Minor PharmJeison Call back request 07/26/2025 Telephone [facility] [place] [address] Vaishali Minor PharmD 07/25/2025 Telephone [facility] [place] [address] Veronica Gupta, MENDEL Hospital Follow-up 07/23/2025 10:20 AM EDT Office Visit [facility] [place] [address] Nancy Ma MD Unstable angina ([facility]) (Primary Dx); Chest pain, unspecified type 07/23/2025 Orders Only [facility] External Provider, [facility] 07/23/2025 Telephone [facility] [place] [address] Adrianna Hammonds RN 07/23/2025 Travel 07/22/2025 Travel 07/19/2025 Telephone [facility] [place] [place] [address] Neil Bernard ANP nov recall 07/19/2025 Results Follow-Up [facility] [place] [address] Neil Bernard ANP Culture, Urine, Routine 07/19/2025 Orders Only [facility] [place] [address] Neil Bernard ANP Hypomagnesemia (Primary Dx) 07/05/2025 1:00 PM EDT Office Visit [facility] [place] [address] Everett Angeles DMD 07/03/2025 2:30 PM EDT Office Visit [facility] [place] [address] Everett Angeles DMD 07/03/2025 Telephone [facility] [address] [place] [address] Everett Angeles, YENI Angeles case delivery 06/28/[address] [address] Sharon Garrison RN Medication Directions 06/28/2025 Orders Only [facility] [address] [place] [address] Neil Bernard ANP Hypomagnesemia (Primary Dx) 06/27/2025 3:30 PM EDT Office Visit [facility] [address] [place] [address] Everett Angeles DMD 06/27/2025 Telephone [facility] [address] [place] [address] Neil Bernard ANP Critical Magnesium 06/27/2025 Refill [facility] [address] [place] [address] Neil Bernard ANP Chronic bilateral low back pain without sciatica 06/26/2025 Refill [facility] [address] [place] [address] Neil Bernard ANP Chronic bilateral low back pain without sciatica 06/24/2025 3:00 PM EDT Office Visit [facility] [address] [place] [address] Raysa Sneed 06/24/2025 Telephone [facility] [address] [place] [address] Neil Bernard ANP Care Coordination (ICP Care Plan) 06/24/2025 Telephone [facility] [address] [place] [phone] Everett Angeles DMD 06/21/2025 11:00 AM EDT Office Visit [facility] [address] [place] [address] Everett Angeles DMD 06/21/2025 Results Follow-Up [facility] [address] [place] [address] Neil Bernard ANP Magnesium 06/21/2025 Telephone [facility] [address] [place] [address] Neil Bernard ANP CRITICAL LAB 06/21/2025 Refill [facility] [place] [address] Neil Bernard ANP Neck pain 06/19/2025 Refill [facility] [place] [address] Vaishali Minor PharmD Type 2 diabetes mellitus with hyperlipidemia (CMS/HCC) ([facility]/HCC) 06/17/2025 Orders Only [facility] [place] [address] Neil Bernard ANP Hypomagnesemia (Primary Dx) 06/17/2025 Travel 06/11/2025 Telephone [facility] [place] [address] Neil Bernard ANP Durable Medical Equipment 06/11/2025 Results Follow-Up [facility] [place] [address] Neil Bernard ANP BI Mammogram Diagnostic Tomosynthesis Bilateral 06/11/2025 Telephone [facility] [place] [address] Neil Bernard ANP Durable Medical Equipment 06/03/2025 Refill [facility] [place] [address] Neil Bernard ANP Mixed anxiety and depressive disorder; Diabetic polyneuropathy associated with type 2 diabetes mellitus (CMS/HCC) 06/02/2025 Refill [facility] [place] [address] Neil Bernard ANP Diabetic polyneuropathy associated with type 2 diabetes mellitus ([facility]/HCC); Mixed anxiety and depressive disorder 05/31/2025 1:00 PM EDT Office Visit [facility] [place] [address] Neil Bernard ANP Dizziness (Primary Dx); Type 2 diabetes mellitus with hyperlipidemia (CMS/HCC) ([facility]); Nausea and vomiting, unspecified vomiting type; Breast pain, left; Risk for falls 05/31/2025 Travel 05/30/2025 Telephone [facility] [place] [address] Neil Bernard ANP chart prep 05/27/2025 Refill [facility] [address] [place] [address] Neil Bernard ANP History of pulmonary embolism 05/23/2025 Refill [facility] [address] [place] [address] Neil Bernard ANP History of pulmonary embolism; Diabetic polyneuropathy associated with type 2 diabetes mellitus ([facility]) from Last 3 Months Immunizations Immunization Administration [...] Sign Reading Time Taken Comments Blood Pressure 120/62 08/07/2025 2:21 PM EDT Pulse 84 08/07/2025 2:21 PM EDT Temperature 37.2 C (98.9 F) 08/06/2025 [...] 08/30/2025 10:30 AM EDT Clinical Support [facility] [address] [place] [address] Shanelle Miller, MENDEL [address] [place] [address] 09/23/2025 11:00 AM EST Medication Management [facility] [address] [place] [address] Vaishali Minor, PharmD [address] [place] [phone] 10/01/2025 9:15 AM EST Office Visit [facility] [address] [place] [address] Neil Bernard ANP [address] [place] [address] 01/02/2026 10:00 AM EST Office Visit [facility] [address] [place] [phone] Linsey Dawkins Health Maintenance Due Date Last [...] 10/12/2025 10/12/2024, 09/03/2022, 08/04/2021 Diabetes: Hemoglobin A1C 11/05/202508/06/ 025, 05/15/2025, 02/05/2025, Additional history exists Depression Screening 11/23/2025 11/23/2024, 11/23/19 Lipid Panel 12/17/2025 12/17/2024, 11/09, 01/27/2022, Additional history exists Dental Prophylaxis 12/26/2025 06/24/2025, 11/14/2024 Colonoscopy 01/09/2026 01/09/2025, 04/15/2015 Colorectal Cancer Screening 01/09/2026 Disability Screening 05/31/2026 05/31/2025 Mammogram 06/11/2026 06/11/2025, 0803/2025, 06/06/2024, Additional history exists Tobacco Screening 08/06/2026 08/06/2025 Eye Exam 12/11/2026 12/11/2024, 02/2025, 12/11/2024, Additional [...] 2 diabetes mellitus with hyperlipidemia (CMS/HCC) (CMS/HCC) HM COLONOSCOPY Routine 01/09/2025 8:51 AM EST [...] AM EDT Narrative 08/06/2025 10:38 [place] [address] XRay Report Signed Patient: oJelle Myers I MR#: [id number] : 1960 Acct:[id number] Age/Sex: 65 / F ADM Date: 08/06/25 Loc: HO.HHCX Attending Dr: Ramez Newman MD Ordering Physician: Ramez Newman MD Date of Service: 08/06/25 Procedure(s): XR humerus LT Accession Number(s): [id number] cc: Ramez Newman MD; NEIL BERNARD NP [...] Jam Rosa MD 08/06/2025 10:36 AM EDT RP Dictated By: Jam Rosa MD Signed By: <Electronically signed by Jam Rosa MD in OV> 08/06/25 1036 DD/ 1030 TD/TT: 08/06/25 1031 Cardiac Rehabilitation Specialist: Procedure Note Donotuseinterpreter, Image - 08/06/[address] [address] XRay Report Signed Patient: Joelle Myers IMR#: [id number] : 1960cct:[id number] Age/Sex: 65 / FADM Date: 08/06/25 Loc: HO.HHCX Attending Dr: Ramez Newman MD Ordering Physician: Ramez Newman MD Date of Service: 08/06/25 Procedure(s): XR humerus LT Accession Number(s): [id number] cc: Ramez Newman MD; NEIL BERNARD NP [...] Jam Rosa MD 08/06/2025 10:36 AM EDT RP Dictated By: Jam Rosa MD Signed By: <Electronically signed by Jam Rosa MD in OV> 08/06/25 1036 DD/ 1030 TD/TT: 08/06/25 1031 Cardiac Rehabilitation Specialist: us Ramez Perkins MD IMG XR PROCEDURES Quentin laura Result - Final * XR Shoulder 2+ Views Left (08/06/2025 10:30 AM EDT) Anatomical Region Laterality Modality Upper Extremities, Shoulder Left Radi ographic Imaging 08/06/2025 10:3 0 AM EDT Narrative 08/06/2025 10:39 [place] [address] XRay Report Signed Patient: Joelle Myers I MR#: [id number] : 1960 Acct:[id number] Age/Sex: 65 / F ADM Date: 08/06/25 Loc: HO.HHCX Attending Dr: Ramez Newman MD Ordering Physician: Ramez Newman MD Date of Service: 08/06/25 Procedure(s): XR shoulder LT min 2V Accession Number(s): [id number] cc: Ramez Newman MD; NEIL BERNARD NP [...] Jam Rosa MD 08/06/2025 10:36 AM EDT RP Dictated By: Jam Rosa MD Signed By: <Electronically signed by Jam Rosa MD in OV> 08/06/25 1036 DD/ 1030 TD/TT: 08/06/25 1031 Cardiac Rehabilitation Specialist: Procedure Note Donotuseinterpreter, Image - 08/06/[address] [address] XRay Report Signed Patient: Joelle Myers IMR#: [id number] : 1960cct:[id number] Age/Sex: 65 / FADM Date: 08/06/25 Loc: .HHCX Attending Dr: Ramez Newman MD Ordering Physician: Ramez Newman MD Date of Service: 08/06/25 Procedure(s): XR shoulder LT min 2V Accession Number(s): [id number] cc: Ramez Newman MD; NEIL BERNARD NP [...] Jam Rosa MD 08/06/2025 10:36 AM EDT RP Dictated By: Jam Rosa MD Signed By: <Electronically signed by Jam Rosa MD in OV> 08/06/25 1036 DD/ 1030 TD/TT: 08/06/25 1031 Cardiac Rehabilitation Specialist: us Ramez Perkins MD IMG XR PROCEDURES Quentin laura Result - Final * (ABNORMAL) POCT glucose manually resulted (08/06/2025 10:05 AM EDT) Only the most recent of2 resultswithin the time period is included. Glucose Blood, POC 332(A) 60 - 200 mg/dL QC Media Lot # [id number] Lot# Expiration Date [id number] Blood Capillary blood specimen / Unknown 08/06/2025 10:05 AM EDT us Ramez Perkins MD POINT OF CARE TEST EN TER/EDIT ORDERABLES Final Result * (ABNORMAL) POCT glycosylated hemoglobin (Hgb A1c) (08/06/2025 10:04 AM EDT) Hemoglobin A1C 8.4(A) 4.0 - 5.7 % QC Media Lot # [id number] Lot# Expiration Date [id number] Blood Capillary blood specimen / Unknown 08/06/2025 10:04 AM EDT us Ramez Perkins MD POINT OF CARE TEST EN TER/EDIT ORDERABLES Final Result * NM heart perfusion SPECT stress and rest (07/24/2025 8:55 AM EDT) Anatomical Region Laterality Modality Body Nuclear Medicine 07/24/2025 8:55 AM EDT Narrative 07/24/2025 12:32 PM EDT [address] [address] Nuclear Medicine Report Signed Patient: Joelle Myers I MR#: [id number] 426 : 1960 Acct:[id number] Age/Sex: 65 / F ADM Date: 07/23/25 Loc: [facility] 486-[address]: Georgette Cohen MD Ordering Physician: Rashid Recinos MD Date of Service: 07/24/25 Procedure(s): NM ramon perf SPECT rest str Accession Number(s): [id number] cc: NEIL BERNARD NP; Rashid Recinos MD Reason for Exam: chest [...] 07/24/25 1230 DD/ 0855 TD/TT: 07/24/25 1115 Cardiac Rehabilitation Specialist: Procedure Note Donotuseinterpreter, Image - 07/24/2025 [place] [address] Nuclear Medicine Report Signed Patient: Joelle Myers IMR#: [id number] : 1Acct:[id number] Age/Sex: 65 / FADM Date: 07/23/25 Loc: [facility] 486-[address]: Georgette Cohen MD Ordering Physician: Rashid Recinos MD Date of Service: 07/24/25 Procedure(s): NM ramon perf SPECT rest str Accession Number(s): [id number] cc: NEIL BERNARD ROOF DESIGNER; Rashid Recinos MD Reason for Exam: chest [...] Recinos MD 07/24/2025 12:30 PM EDT RP Dictated By: Rashid Recinos MD Signed By: <Electronically signed by Rashid Recinos MD inOV> 07/24/25 1230 DD/ 0855 TD/TT: 07/24/25 1115 Cardiac Rehabilitation Specialist: [facility] External Provider IMG NM PROCEDURES Edited [...] 2:37 PM EDT 06/27/2025 4:25 PM EDT Comment:[facility] - 06/29/2025 10:59 AM EDT Urine Culture No growth. Specimen Source: Urine clean catch [facility] MICROBIOLOGY - GENERAL ORDER BARRERA Final Result [facility] [address] [place] [phone] * (ABNORMAL) Magnesium (06/27/2025 2:37 PM EDT) Only the most recent of2 resultswithin the time period is included. Magnesium 1.2(LL) 1.6 - 2.6 mg/dL [facility] Comment:Critical value for t est(s):MAGS Results called to and readback by:DEBBIE Jones Person calling: [employer] Date: [id number]:1700 Blood Venous blood specimen / Unknown 06/27/2025 2:37 PM EDT 06/27/2025 4:20 PM EDT us Neil Bernard ANP LAB BLOOD ORDERABLES Final Resul t [facility] [address] [place] [address] [phone] * BI US Breast Limited Left (06/11/2025 10:30 AM EDT) Anatomical Region Laterality Modality Breast Left Ultrasound 06/11/2025 10:3 0 AM EDT Narrative 06/11/2025 10:59 AM EDT [facility] [address] [place] [address] Ultrasound Report Signed Patient: Joelle Myers I MR#: [id number] : 1960 Acct:[id number] Age/Sex: 64 / F ADM Date: 06/11/25 Loc: HO.MAMMO Attending Dr: Neil Bernard NP Ordering Physician: NEIL BERNARD NP Date of Service: 06/11/25 Procedure(s): US breast LT limited Accession Number(s): [id number] cc: NEIL BERNARD NP EXAMINATIONS: 1. MM [...] 06/11/25 1056 DD/ 1030 TD/TT: 06/11/25 1049 Cardiac Rehabilitation Specialist: Procedure Note Donotuseinterpreter, Image - 06/11/2025 [facility] [address] [place] [address] Ultrasound Report Signed Patient: Joelle Myers [facility]#: [id number] : 1960cct:[id number] Age/Sex: 64 / FADM Date: 06/11/25 Loc: HO.MAMMO Attending Dr: Neil Bernard NP Ordering Physician: NEIL BERNARD NP Date of Service: 06/11/25 Procedure(s): US breast LT limited Accession Number(s): [id number] cc: NEIL BERNARD NP EXAMINATIONS: 1. MM [...] 06/11/25 1056 DD/ 1030 TD/TT: 06/11/25 1049 Cardiac Rehabilitation Specialist: us Neil Sandeep CALDWELL [facility] US PROCEDURES Edited Result - Final * BI Mammogram Diagnostic Tomosynthesis Bilateral (06/11/2025 10:05 AM EDT) Anatomical Region Laterality Modality Breast Bilateral Mammography 06/11/2025 10:0 5 AM EDT Narrative 06/11/2025 10:59 AM EDT [place] [facility] [address] [place] [address] Mammography Report Signed Patient: Joelle Myers I MR#: [id number] 426 : 1960 Acct:[id number] Age/Sex: 64 / F ADM Date: 06/11/25 Loc: HO.MAMMO Attending Dr: Neil Bernard NP Ordering Physician: NEIL BERNARD NP Results: 2Benign Fin dings Date of Service: 06/11/25 Follow Up: 1 Year From Orig inal Mammogram Procedure(s): MM tomosynthesis diagnostic BI Accession Number(s): [id number] cc: NEIL BERNARD NP EXAMINATIONS: 1. MM [...] 06/11/25 1056 DD/ 1005 TD/TT: 06/11/25 1030 Cardiac Rehabilitation Specialist: Procedure Note Donotuseinterpreter, Image - 06/11/2025 [facility] [address] [place] [address] Mammography Report Signed Patient: Joelle Myers IMR#: [id number] : 1960cct:[id number] Age/Sex: 64 / FADM Date: 06/11/25 Loc: HO.MAMMO Attending Dr: Neil Bernard NP Ordering Physician: NEIL BERNARD NPResults: 2Benign Ashu ho Date of Service: 06/11/25Follow Up: 1 Year From [facility] ina Mammogram Procedure(s): MM tomosynthesis diagnostic BI Accession Number(s): [id number] cc: NEIL BERNARD NP EXAMINATIONS: 1. MM [...] 06/11/25 1056 DD/ 1005 TD/TT: 06/11/25 1030 Cardiac Rehabilitation Specialist: [facility] IM BI PROCEDURES Edited Result - Final * CT Lung Screening Low dose (06/04/2025 4:30 PM EDT) Anatomical Region Laterality Modality Lung Computed Tomogra phy 06/04/2025 4:30 PM EDT Narrative 06/04/2025 4:31 PM EDT [address] [address] [address] Scan Report Signed Patient: Joelle Myers I MR#: [id number] : 1960 Acct:[id number] Age/Sex: 64 / F ADM Date: 06/03/25 Loc: HO.CT Attending Dr: Tracey Moreno PA-C Ordering Physician: Tracey Moreno PA-C Date of Service: 06/03/25 Procedure(s): CT lung screening Accession Number(s): [id number] cc: Tracey Moreno PA-C; NEIL BERNARD NP Report Number: [id number]: Total DLP = 39.00 mGy-cm CLINICAL HISTORY: [...] CHEST 1 VIEW - 09/17/24 15:[address]/GA/SR - CT LUNG SCREENING - 05/30/24 13:[address]/GA/SR - CT LUNG SCREENING - 05/04/24 12:02 [...] 06/04/25 1631 DD/ 1630 TD/TT: 06/04/25 1630 Cardiac Rehabilitation Specialist: Procedure Note Donotuseinterpreter, Image - 06/04/[address] [address] [address] Scan Report Signed Patient: Joelle Myers IMR#: [id number] : 1960cct:[id number] Age/Sex: 64 / FADM Date: 06/03/25 Loc: HO.CT Attending Dr: Tracey Moreno PA-C Ordering Physician: Tracey Moreno PA-C Date of Service: 06/03/25 Procedure(s): CT lung screening Accession Number(s): [id number] cc: Tracey Moreno PA-C; NEIL BERNARD NP Report Number: [id number]: Total DLP = 39.00 mGy-cm CLINICAL HISTORY: [...] CHEST 1 VIEW - 09/17/24 15:[address]/GA/SR - CT LUNG SCREENING - 05/30/24 13:[address]/GA/SR - CT LUNG SCREENING - 05/04/24 12:02 [...] 06/04/25 1631 DD/ 1630 TD/TT: 06/04/25 1630 Cardiac Rehabilitation Specialist: [facility] External Provider IMG CT PROCEDURES Final Result * Colonoscopy (01/09/2025 8:51 AM EST) Historical Provider HEALTH MAINTENANCE Final Result * Lipid Panel, Standard (12/17/2024 6:58 AM EST) Triglycerides 58 <150 mg/dL [facility] Comment:Desirable Triglyceri de: less than 150 mg/dLBorderline High Triglyceride 150-199 mg/dLHigh Triglyceride: 200-499 mg/dLVery High Triglyceride: greater than or equal to 5OO mg/dL Cholesterol 106 <200 mg/dL [facility] Comment:Desirable Cholestero l: less than 200 mg/dLBorderline High Cholesterol: 200-239 mg/dLHigh Cholesterol: greater than 239 mg/dL LDL Cholesterol Calculated 45 <100 mg/dL [facility] Comment:Desirable LDL: less than 100 mg/dLNear Optimal/Above Optimal LDL: 110- 129 mg/dLBorderline High LDL: 130-159 mg/dLHigh LDL: 160-189 mg/dLVery High LDL: greater than or equal to 190 mg/dL HDL Cholesterol 50 >40 mg/dL [facility] Comment:Desirable HDL: great er than 40 mg/dL Note: This HDL assay may give artificially low results in patients with liver disease. 12/17/2024 6:58 AM EST 12/17/2024 6:58 AM EST Neil Bernard ANP LAB BLOOD ORDERABLES Final Resul t Performing Organization Address [facility] de Phone Number [place] [facility] [address] [place] [phone] * Albumin, Random Urine W/Creatinine (10/12/2024 9:52 AM EST) Creatinine, Urine 41.64 mg/dL [facility] Microalbumin Urine 6.0 mg/L [facility] Microalbum Creatinine Ratio Ur 14.4 <30 ug/mg cr [facility] Comment:Albumin/Creatinine R atio Reference Ranges: Normal: < 30 ug/mg creatinine Microalbuminuria: 30 - 300 ug/mg creatinineClinical Albuminuria: > 300 ug/mg creatinine Urine (Urine, Random) 10/12/2024 9:52 AM EST 10/12/2024 10:49 AM EST Neil Bernard ANP LAB URINE ORDERABLES Final Resul t Performing Organization Address [facility] Co de Phone Number [facility] [address] [place] [address] [phone] from Last 3 Months or Most Recently Relevant to Health Maintenance [facility] STAND ADULT Care Teams Non Destructive Testing Inspector Relationship Specialty Start Date End Date Neil Bernard ANP [address] [place] [address] PCP - General Family Medicine 07/07/20 Vaishali Minor PharmD [address] [place] [address] Pharmacist Internal Medicine 10/29/24 Clarence Perkins Fish Frog Or Oyster FarmerStyrene Dehydration Reactor Operator 06/24/25
--- OUTSIDE RECORDS SUMMARY | 2025-08-21 12:54 | XMS_ITS | Encounter Summary ---
Author Organization [employer] Address 75 [facility] 7t [place] [address] Care Team Providers Care Change Management Specialist Name Role Phone Sepideh Hopkins Primary Care Provider [phone] Vaishali Minor PharmD Unavailable [phone] Reason for Visit * Reason Comments Med Refill Encounter Details Date Type Department Care Team ([facility] st Contact Info) Description 06/27/2025 Refill [facility] [address] [place], [place] [phone] Sepideh Hopkins ANP 230 [place] [address] Chronic bilateral low back pain without sciatica [...] 08/30/2025 10:30 AM EDT Clinical Support [facility] MEDICINE [address] [place] [address] Shanelle Miller, RN 505 [place] [address] 09/23/2025 11:00 AM EST Medication Management [facility] MEDICINE [address] [place] [address] Vaishali Minor, PharmD [address] [place] [address] 10/01/2025 9:15 AM EST Office Visit [facility] MEDICINE [address] [place] [address] Sepideh Hopkins ANP [address] [place] [address] 01/02/2026 10:00 AM EST Office Visit [facility] ADULT DENTAL [address] [place] [address] Linsey Dawkins documented as of this encounter Visit Diagnoses Diagnosis Chronic bilateral low back pain without sciatica documented in this encounter Additional Health Concerns Assessment Noted Time PHQ-9 Depression Total Score: 5 11/23/19 25 1:05 PM EST documented as of this encounter Care Teams Change Management Specialist Relationship Specialty Start Date End Date Sepideh Hopkins ANP [address] [place] [address] PCP - General Family Medicine 07/07/20 Vaishali Minor PharmD [address] [place] [address] Pharmacist Internal Medicine 10/29/24 Clarence Perkins Process Tank TenderCalender Wind Up Tender 06/24/25 documented as of this encounter
--- OUTSIDE RECORDS SUMMARY | 2025-08-21 12:54 | XMS_ITS | Encounter Summary ---
Author Organization [employer] Address 75 [facility] 7t [place] [address] Care Team Providers Care Fiberglass Fabricator Name Role Phone Sepideh Hopkins JAVI Primary Care Provider [phone] Vaishali Minor PharmD Unavailable Reason for Visit * Reason Onset Date Comments Dr. Angeles case delivery 07/03/2025 Encounter Details Date Type Department Care Team ([facility] st Contact Info) Description 07/03/2025 Telephone [facility] ADULT DENTAL [address] [place] [address] Everett Angeles, DMD [address] [place] [address] Dr. Angeles case delivery Social History Tobacco [...] Angeles was not in office yesterday therefore front sight attacher is waiting to see him today to confirm how provider would likke to schedule patient. front desk representative will reach out to patient to schedule. documented in this encounter Plan of Treatment Upcoming Encounters Date Type Department Care Team (Late st Contact Info) Description 08/30/2025 10:30 AM EDT Clinical Support [facility] [address] [place] [address] Shanelle Miller RN 505 [place] [address] 09/23/2025 11:00 AM EST Medication Management [facility] [address] [place] [address] Vaishali Minor, PharmD 230 [place] [address] 10/01/2025 9:15 AM EST Office Visit [facility] [address] [place] [address] Sepideh Hopkins ANP [address] [place] [address] 01/02/2026 10:00 AM EST Office Visit [facility] ADULT DENTAL [address] [place], [place] [phone] Linsey Dawkins documented as of this encounter Visit Diagnoses Not on filedocumented in this encounter Additional Health Concerns Assessment Noted Time PHQ-9 Depression Total Score: 5 11/23/19 25 1:05 PM EST documented as of this encounter Care Teams Fiberglass Fabricator Relationship Specialty Start Date End Date Sepideh Hopkins ANP [address] [place] [address] PCP - General Family Medicine 07/07/20 Vaishali Minor, IrwinD [address] [place] [address] Pharmacist Internal Medicine 10/29/24 Clarence Perkins Injection Press OperatorMop Man 06/24/25 documented as of this encounter
--- OUTSIDE RECORDS SUMMARY | 2025-08-21 12:54 | XMS_ITS | Encounter Summary ---
Author Organization [employer] Address 75 [facility] 7t [place] [address] Care Team Providers Care Methods Time Analyst Name Role Phone Sepideh Hopkins Primary Care Provider [phone] Vaishali Minor PharmD Unavailable [phone] Encounter Details Date Type Department Care Team ([facility] st Contact Info) Description 06/21/2025 Results Follow-Up [facility] MEDICINE 230 [place] [address] Sepideh Hopkins ANP 230 [place] [address] Magnesium Social History Tobacco Use Types Packs/Day [...] Description 08/30/2025 10:30 AM EDT Clinical Support [facility] MED[facility]INE [address] [place] [address] Shanelle Miller RN 505 [place] [address] 09/23/2025 11:00 AM EST Medication Management [facility] [address] [place] [address] Vaishali Minor, IrwinD [address] [place] [address] 10/01/2025 9:15 AM EST Office Visit [address] [address] Sepideh Hopkins ANP [address] [place] [address] 01/02/2026 10:00 AM EST Office Visit [facility] ADULT DENTAL [address] [facility] [place] [address] Linsey Dawkins documented as of this encounter Procedures Procedure Name Priority Date/Time Associated Diagnosis Comments MAGNESIUM Routine 06/27/2025 2:37 PM EDT Hypomagnesemia documented in this encounter Results * (ABNORMAL) Magnesium (06/27/2025 2:37 PM EDT) Magnesium 1.2(LL) 1.6 - 2.6 mg/dL [facility] Comment:Critical value for t est(s):MAGS Results called to and readback by:DEBBIE Jones Person calling: [employer] Date: [id number] Blood Venous blood specimen / Unknown 06/27/2025 2:37 PM EDT 06/27/2025 4:20 PM EDT Sepideh [facility] BLOOD ORDERABLES Final Resul t [facility] [address] [place] [address] [phone] documented in this encounter Visit Diagnoses Diagnosis Hypomagnesemia- Primary Disorders of magnesium metabolism documented in this encounter Additional Health Concerns Assessment Noted Time PHQ-9 Depression Total Score: 5 11/23/19 25 1:05 PM EST documented as of this encounter Care Teams Methods Time Analyst Relationship Specialty Start Date End Date Sepideh Hopkins ANP [address] [facility] [place] [address] PCP - General Family Medicine 07/07/20 [place] [address] Pharmacist Internal Medicine 10/29/24 Clarence Perkins Parts ExpediterHorse And Wagon Driver 06/24/25 documented as of this encounter
--- OUTSIDE RECORDS SUMMARY | 2025-08-21 12:54 | XMS_ITS | Encounter Summary ---
Author Organization [employer] Address 75 [facility] 7t [place] [address] Care Team Providers Care Collarette Separator Name Role Phone Sepideh Hopkins Primary Care Provider [phone] Vaishali Minor PharmD Unavailable [phone] Encounter Details Date Type Department Care Team ([facility] st Contact Info) Description 07/19/2025 Results Follow-Up [facility] MEDICINE 230 [place] [address] Sepideh Hopkins ANP 230 [place] [address] Culture, Urine, Routine Social History Tobacco Use [...] Description 08/30/2025 10:30 AM EDT Clinical Support [address] [address] Shanelle Miller RN 505 [place] [address] 09/23/2025 11:00 AM EST Medication Management [address] [address] Vaishali Minor, PharmD [address] [place] [address] 10/01/2025 9:15 AM EST Office Visit [address] [address] Sepideh Hopkins ANP [address] [place] [address] 01/02/2026 10:00 AM EST Office Visit [facility] ADULT DENTAL 230 [place] [address] Linsey Dawkins documented as of this encounter Visit Diagnoses Not on filedocumented in this encounter Additional Health Concerns Assessment Noted Time PHQ-9 Depression Total Score: 5 11/23/19 25 1:05 PM EST documented as of this encounter Care Teams Collarette Separator Relationship Specialty Start Date End Date Sepideh Hopkins ANP [address] [place] [address] PCP - General Family Medicine 07/07/20 Vaishali Minor PharmD 230 [place] [address] Pharmacist Internal Medicine 10/29/24 Clarence Perkins Clinical Rehabilitation AideLawyer Real Estate 06/24/25 documented as of this encounter
--- OUTSIDE RECORDS SUMMARY | 2025-08-21 12:54 | XMS_ITS | Encounter Summary ---
Author Organization [employer] Address 75 [facility] 7t [place] [address] Care Team Providers Care Clinical Exercise Specialist Name Role Phone Sepideh Hopkins Primary Care Provider [phone] Vaishali Minor PharmD Unavailable [phone] Reason for Visit * Reason Comments Med Refill Encounter Details Date Type Department Care Team ([facility] st Contact Info) Description 06/22/2024 Refill [facility] MEDICINE 230 [place], [place] [phone] Sepideh Hopkins ANP 230 [place] [address] Social History Tobacco Use Types Packs/Day Years [...] Description 08/30/2025 10:30 AM EDT Clinical Support [facility] MEDICINE [address] [place] [address] Shanelle Miller RN 505 [place] [address] 09/23/2025 11:00 AM EST Medication Management [facility] MEDICINE [address] [place] [address] Vaishali Minor PharmD [address] [place] [address] 10/01/2025 9:15 AM EST Office Visit [facility] MEDICINE [address] [place] [address] Sepideh Hopkins ANP [address] [place] [address] 01/02/2026 10:00 AM EST Office Visit [facility] ADULT DENTAL [address] [place] [address] Linsey Dawkins documented as of this encounter Visit Diagnoses Not on filedocumented in this encounter Care Teams Clinical Exercise Specialist Relationship Specialty Start Date End Date Sepideh Hopkins ANP [address] [place] [address] PCP - General Family Medicine 07/07/20 Vaishali Minor PharmD [address] [place] [address] Pharmacist Internal Medicine 10/29/24 Clarence Perkins C Application DeveloperBusiness Programmer 06/24/25 documented as of this encounter
--- OUTSIDE RECORDS SUMMARY | 2025-08-21 12:54 | XMS_ITS | Encounter Summary ---
Author Organization [employer] Address 75 [facility] 7t [place] [address] Care Team Providers Care Shuttlecock Assembler Name Role Phone Sepideh Hopkins Primary Care Provider [phone] Vaishali Minor PharmD Unavailable Reason for Visit * Reason Onset Date Comments Med Refill 08/05/2025 Encounter Details Date Type Department Care Team ([facility] st Contact Info) Description 08/05/2025 Telephone [facility] [address] [place], [place] [phone] Sepideh Hopkins ANP 230 [place] [address] Med Refill Social History Tobacco Use Types [...] 50 MG tablet To be sent to: [facility] - [place], [place] - [address] [place] [address] documented in this encounter Plan of Treatment Upcoming Encounters Date Type Department Care Team ([facility] st Contact Info) Description 08/30/2025 10:30 AM EDT Clinical Support [address] [address] Shanelle Miller RN 505 [place] [address] 09/23/2025 11:00 AM EST Medication Management [address] [address] Vaishali Minor, PharmD [address] [place] [address] 10/01/2025 9:15 AM EST Office Visit [address] [place] [address] Sepideh Hopkins ANP 230 [place] [address] 01/02/2026 10:00 AM EST Office Visit [facility] ADULT DENTAL 230 [place] [address] Linsey Dawkins documented as of this encounter Visit Diagnoses Not on filedocumented in this encounter Additional Health Concerns Assessment Noted Time PHQ-9 Depression Total Score: 5 11/23/19 25 1:05 PM EST documented as of this encounter Care Teams Shuttlecock Assembler Relationship Specialty Start Date End Date Sepideh Hopkins ANP [address] [place] [address] [phone] PCP - General Family Medicine 07/07/20 Vaishali Minor PharmD [address] [place] [address] Pharmacist Internal Medicine 10/29/24 Clarence Perkins College Sports AssistantWool Shearing Supervisor 06/24/25 documented as of this encounter
--- OUTSIDE RECORDS SUMMARY | 2025-08-21 12:54 | XMS_ITS | Encounter Summary ---
Author Organization [employer] Address [address] [facility] [address] 7t [place] [address] Care Team Providers Care Soil Tester Name Role Phone Sepideh Hopkins JAVI Primary Care Provider [phone] Vaishali Minor PharmD Unavailable Reason for Visit * Reason Comments Med Refill Encounter Details Date Type Department Care Team ([facility] Contact Info) Description 08/20/2025 Refill [facility] 230 [place] [address] Dina Kulkarni MD [address] [place] [address] Allergic rhinitis, unspecified seasonality, unspecified trigger Social [...] Description 08/30/2025 10:30 AM EDT Clinical Support [facility] [address] [place] [address] Shanelle Miller, MENDEL 505 [place] [address] 09/23/2025 11:00 AM EST Medication Management [facility] [address] [place] [address] Vaishali Minor, PharmD [address] [place] [address] 10/01/2025 9:15 AM EST Office Visit [facility] [address] [place] [address] Sepideh Hopkins ANP [address] [place] [address] 01/02/2026 10:00 AM EST Office Visit [facility] ADULT DENTAL [address] [place] [address] Linsey Dawkins documented as of this encounter Visit Diagnoses Diagnosis Allergic rhinitis, unspecified seasonality, unspecified trigger documented in this encounter Additional Health Concerns Assessment Noted Time PHQ-9 Depression Total Score: 5 11/23/19 25 1:05 PM EST documented as of this encounter Care Teams Soil Tester Relationship Specialty Start Date End Date Sepideh Hopkins ANP [address] [place] [address] PCP - General Family Medicine 07/07/20 Vaishali Minor PharmD 230 [place] [address] Pharmacist Internal Medicine 10/29/24 Clarence Perkins Branch ManagerTruss Builder 06/24/25 documented as of this encounter
--- OUTSIDE RECORDS SUMMARY | 2025-08-21 12:54 | XMS_ITS | Encounter Summary ---
Author Organization [employer] Address 75 [facility] 7t [place] [address] Care Team Providers Care Hull Sorter Name Role Phone Sepideh Hopkins Primary Care Provider [phone] Vaishali Minor PharmD Unavailable [phone] Encounter Details Date Type Department Care Team ([facility] st Contact Info) Description 05/02/2025 Orders Only [facility] MED[facility]INE 230 [place] [address] Sepideh Hopkins ANP 230 [place] [address] Social History Tobacco Use Types Packs/Day Years [...] [facility] [address] [place] [address] Shanelle Miller, RN 505 [place] [address] 09/23/2025 11:00 AM EST Medication Management [address] [address] Vaishali Minor, PharmD [address] [place] [address] 10/01/2025 9:15 AM EST Office Visit [facility] MEDICINE [address] [place] [address] Sepideh Hopkins ANP [address] [place] [address] 01/02/2026 10:00 AM EST Office Visit [facility] ADULT DENTAL [address] [place] [address] Linsey Dawkins documented as of this encounter Visit Diagnoses Not on filedocumented in this encounter Additional Health Concerns Assessment Noted Time PHQ-9 Depression Total Score: 5 11/23/19 25 1:05 PM EST documented as of this encounter Care Teams Hull Sorter Relationship Specialty Start Date End Date Sepideh Hopkins ANP 230 [place] [address] PCP - General Family Medicine 07/07/20 Vaishali Minor PharmD 230 [place] [address] Pharmacist Internal Medicine 10/29/24 Clarence Perkins Door TenderTile Mechanic Helper 06/24/25 documented as of this encounter
--- OUTSIDE RECORDS SUMMARY | 2025-08-21 12:54 | XMS_ITS | Encounter Summary ---
Author Organization [employer] Address 75 [facility] 7t [place] [address] Care Team Providers Care Environmental Resource Specialist Name Role Phone Sepideh Hopkins Primary Care Provider [phone] Vaishali Minor PharmD Unavailable [phone] Reason for Visit * Reason Comments Med Refill Encounter Details Date Type Department Care Team ([facility] Contact Info) Description 01/05/2023 Refill [facility] MED[facility]INE 230 [place] [address] Sepideh Hopkins ANP 230 [place] [address] Social History Tobacco Use Types Packs/Day Years [...] Upcoming Encounters Date Type Department Care Team ([facility] Contact Info) Description 08/30/2025 10:30 AM EDT Clinical Support [facility] MED[facility] 230 [place] [address] Shanelle Miller RN 505 [place] [address] 09/23/2025 11:00 AM EST Medication Management [facility] [address] [place] [address] Vaishali Minor PharmD [address] [place] [address] 10/01/2025 9:15 AM EST Office Visit [facility] MED[facility]INE [address] [place] [address] Sepideh Hopkins ANP [address] [place] [address] 01/02/2026 10:00 AM EST Office Visit [facility] ADULT DENTAL [address] [place] [address] Linsey Dawkins documented as of this encounter Visit Diagnoses Not on filedocumented in this encounter Care Teams Environmental Resource Specialist Relationship Specialty Start Date End Date Sepideh Hopkins ANP [address] [place] [address] PCP - General Family Medicine 07/07/20 Vaishali Minor, Leonidas [address] [place] [address] Pharmacist Internal Medicine 10/29/24 Clarence Perkins Patient CarrierPhysical Scientist 06/24/25 documented as of this encounter
--- OUTSIDE RECORDS SUMMARY | 2025-08-21 12:54 | XMS_ITS | Encounter Summary ---
Author Organization [employer] Address 75 [facility] 7t [place] [address] Care Team Providers Care Strategic Planning Consultant Name Role Phone Sepideh Hopkins Primary Care Provider [phone] Vaishali Minor PharmD Unavailable Reason for Visit * Reason Comments Med Refill Encounter Details Date Type Department Care Team ([facility] st Contact Info) Description 05/23/2025 Refill [facility] 230 [place], [place] [phone] Sepideh Hopkins ANP 230 [place] [address] History of pulmonary embolism; Diabetic polyneuropathy associated [...] Description 08/30/2025 10:30 AM EDT Clinical Support [facility] MED[facility]INE [address] [place] [address] Shanelle Miller RN 505 [place] [address] 09/23/2025 11:00 AM EST Medication Management [facility] [address] [place] [address] Vaishali Minor, PharmD [address] [place] [address] 10/01/2025 9:15 AM EST Office Visit [facility] MED[facility] [address] [place] [address] Sepideh Hopkins ANP [address] [place] [address] 01/02/2026 10:00 AM EST Office Visit [facility] ADULT DENTAL [address] [place] [address] Linsey Dawkins documented as of this encounter Visit Diagnoses Diagnosis History of pulmonary embolism Personal history of venous thrombosis and embolism Diabetic polyneuropathy associated with type 2 diabetes mellitus (HCC) documented in this encounter Additional Health Concerns Assessment Noted Time PHQ-9 Depression Total Score: 5 11/23/19 25 1:05 PM EST documented as of this encounter Care Teams Strategic Planning Consultant Relationship Specialty Start Date End Date Sepideh Hopkins ANP [address] [place] [address] PCP - General Family Medicine 07/07/20 Vaishali Minor PharmD [address] [place] [address] Pharmacist Internal Medicine 10/29/24 Clarence Perkins Fishing Vessel OperatorNews Photographer 06/24/25 documented as of this encounter
--- OUTSIDE RECORDS SUMMARY | 2025-08-21 12:54 | XMS_ITS | Encounter Summary ---
Author Organization [employer] Address 75 [facility] 7t [place] [address] Care Team Providers Care System Planning Engineer Name Role Phone Sepideh Hopkins Primary Care Provider [phone] Vaishali Minor PharmD Unavailable Reason for Visit * Reason Onset Date Comments Durable Medical Equipment 06/11/2025 Encounter Details Date Type Department Care Team ([facility] st Contact Info) Description 06/11/2025 Telephone [facility] MEDICINE [address] [place] [address] Sepideh Hopkins ANP [address] [place] [address] Durable Medical Equipment Social History Tobacco Use [...] 06/11/2025 10:28 AM EDT Tc from pt gericare aide teacher Clarence requesting status on walker discussed during office visit with PCP on 05/31. documented in this encounter Plan of Treatment Upcoming Encounters Date Type Department Care Team (Late st Contact Info) Description 08/30/2025 10:30 AM EDT Clinical Support [address] [address] Shanelle Miller RN 505 [place] [address] 09/23/2025 11:00 AM EST Medication Management [address] [address] Vaishali Minor PharmD [address] [place] [address] 10/01/2025 9:15 AM EST Office Visit [facility] MEDICINE [address] [place] [address] Sepideh Hopkins ANP [address] [place] [address] 01/02/2026 10:00 AM EST Office Visit [facility] ADULT DENTAL [address] [place] [address] Linsey Dawkins documented as of this encounter Visit Diagnoses Not on filedocumented in this encounter Additional Health Concerns Assessment Noted Time PHQ-9 Depression Total Score: 5 11/23/19 25 1:05 PM EST documented as of this encounter Care Teams System Planning Engineer Relationship Specialty Start Date End Date Sepideh Hopkins ANP [address] [place] [address] PCP - General Family Medicine 07/07/20 Vaishali Minor, IrwinD [address] [place] [address] Pharmacist Internal Medicine 10/29/24 Clarence Perkins Tube CovererCollision Estimator 06/24/25 documented as of this encounter
--- OUTSIDE RECORDS SUMMARY | 2025-08-21 12:54 | XMS_ITS | Encounter Summary ---
Author Organization [employer] Address 75 [facility] 7t [place] [address] Care Team Providers Care Crm Specialist Name Role Phone Sepideh Hopkins Primary Care Provider [phone] Vaishali Minor PharmD Unavailable [phone] Reason for Visit * Reason Comments Med Refill Encounter Details Date Type Department Care Team ([facility] st Contact Info) Description 02/27/2024 Refill [facility] MEDICINE [address] [place], [place] [phone] Sepideh Hopkins ANP 230 [place] [address] Social History Tobacco Use Types Packs/Day Years [...] 10:30 AM EDT Clinical Support [facility] MEDICINE [address] [place] [address] Shanelle Miller RN 505 [place] [address] 09/23/2025 11:00 AM EST Medication Management [facility] MEDICINE [address] [place] [address] Vaishali Minor PharmD [address] [place] [address] 10/01/2025 9:15 AM EST Office Visit [facility] MEDICINE [address] [place] [address] Sepideh Hopkins ANP [address] [place] [address] 01/02/2026 10:00 AM EST Office Visit [facility] ADULT DENTAL [address] [place] [address] Linsey Dawkins documented as of this encounter Visit Diagnoses Not on filedocumented in this encounter Care Teams Crm Specialist Relationship Specialty Start Date End Date Sepideh Hopkins ANP [address] [place] [address] PCP - General Family Medicine 07/07/20 Vaishali Minor PharmD [address] [place] [address] Pharmacist Internal Medicine 10/29/24 Clarence Perkins Flame GougerAnesthesiologist 06/24/25 documented as of this encounter
--- OUTSIDE RECORDS SUMMARY | 2025-08-21 12:54 | XMS_ITS | Encounter Summary ---
Author Organization [employer] Address 75 [facility] 7t [place] [address] Care Team Providers Care Bicycle Service Technician Name Role Phone Sepideh Hopkins JAVI Primary Care Provider [phone] Vaishali Minor PharmD Unavailable Reason for Visit * Reason Onset Date Comments Appointment 12/08/2022 Patient called i n inquiring about RCT appt with Pasquale. Encounter Details Date Type Department Care Team ([facility] Contact Info) Description 12/08/2022 Telephone [facility]ULT [facility]AL [address] [place], [place] [phone] Gregorio Giordano, ANNIES 505 [place], [place] [phone] Appointment (Patient called in inquiring about RCT [...] Description 08/30/2025 10:30 AM EDT Clinical Support [facility] MED[facility]INE [address] [place] [address] Shanelle Miller, MENDEL 505 [place] [address] 09/23/2025 11:00 AM EST Medication Management [address] [address] Vaishali Minor PharmD [address] [place] [address] 10/01/2025 9:15 AM EST Office Visit [facility] MED[facility]INE [address] [place] [address] Sepideh Hopkins ANP [address] [place] [address] 01/02/2026 10:00 AM EST Office Visit [facility] ADULT DENTAL [address] [place] [address] Linsey Dawkins documented as of this encounter Visit Diagnoses Not on filedocumented in this encounter Care Teams Bicycle Service Technician Relationship Specialty Start Date End Date Sepideh Hopkins ANP [address] [place] [address] PCP - General Family Medicine 07/07/20 Vaishali Minor PharmD [address] [place] [address] Pharmacist Internal Medicine 10/29/24 Clarence Perkins Entry Level Sales RepresentativeDie Tripper 06/24/25 documented as of this encounter
== END ==
LOC: HO.CARD 10:44
PROVIDERS: PCP Nurse Practitioner Primary Care; Visit Provider Internal Medicine
DX: R07.2 Precordial pain (principal); I25.10 Atherosclerotic heart disease of native coronary artery without angina pectoris
CPT/HCPCS: 93306; Q9957

== ENCOUNTER → 2025-08-21 10:47 | Outpatient (BNV) | payer MEDICAID, SELFPAY | PROVIDERS: PCP Nurse Practitioner Primary Care; Visit Provider Internal Medicine Cardiovascular Disease | DX: I25.10 Atherosclerotic heart disease of native coronary artery without angina pectoris (principal) | CPT/HCPCS: 93306 ==

== ENCOUNTER 2025-08-26 10:01 | Emergency (ER) | payer MEDICAID, SELFPAY ==
[2025-08-26 10:35] VITALS: BP 151/79; PULSE 72; RESP 16; TEMP 37; O2SAT 98; BMI 27.9
--- NOTE | 2025-08-26 10:37 | ED.GENADULT ---
HPI - General Adult General Chief complaint: Eye Problems Stated complaint: L sided Arm pain Related Data Home Medications ?Medication ?Instructions ?Recorded ?Confirmed blood-glucose meter (FreeStyle 08/26/20 06/20/25 Lite Meter kit) budesonide-formoterol HFA 160 2 puff inhalation BID 08/26/20 07/23/25 mcg-4.5 mcg/actuation aerosol inhaler sertraline 100 mg tablet (Zoloft) 200 mg PO BEDTIME 08/26/20 07/23/25 apixaban 2.5 mg tablet (Eliquis) 2.5 mg PO BID 01/13/22 07/23/25 acarbose 100 mg tablet 100 mg PO TID 06/08/23 07/23/25 cholecalciferol (vitamin D3) 50 50 mcg PO DAILY 03/09/24 07/23/25 mcg (2,000 unit) tablet atorvastatin 40 mg tablet 40 mg PO BEDTIME 05/09/24 07/23/25 bupropion HCl 100 mg tablet,12 hr 100 mg PO DAILY 05/09/24 07/23/25 sustained-release cetirizine 10 mg tablet 10 mg PO DAILY 05/09/24 07/23/25 lorazepam 0.5 mg tablet 0.5 mg PO BID PRN Anxiety 05/09/24 07/23/25 tiotropium bromide 18 mcg capsule 1 cap inhalation DAILY 05/09/24 07/23/25 with inhalation device (Spiriva with HandiHaler) zolpidem 10 mg tablet 10 mg PO BEDTIME PRN Insomnia 05/09/24 07/23/25 gabapentin 300 mg capsule 600 mg PO TID 07/04/24 07/23/25 acetaminophen 500 mg tablet 1,000 mg PO Q6H PRN Pain 07/18/24 07/23/25 albuterol sulfate 2.5 mg/3 mL 2.5 mg inhalation Q6H PRN wheezing 07/18/24 07/23/25 (0.083 %) solution for nebulization fluticasone propionate 50 1 spray intranasal BID 07/18/24 07/23/25 mcg/actuation nasal spray,suspension metformin 500 mg tablet,extended 500 mg PO BID 07/18/24 07/23/25 release 24 hr lidocaine 5 % topical patch 1 patch topical DAILY 09/12/24 07/23/25 fenofibrate micronized 134 mg 134 mg PO DAILY 12/12/24 07/23/25 capsule flash glucose sensor (FreeStyle #1 ea 02/08/25 06/20/25 Dagmar 2 Sensor kit) magnesium oxide 400 mg (241.3 mg 400 mg PO DAILY 02/08/25 07/23/25 magnesium) tablet semaglutide 1 mg/dose (4 mg/3 mL) 2 mg subcut FR 05/14/25 07/23/25 subcutaneous pen injector (Ozempic) metoprolol succinate 25 mg 50 mg PO BID 06/24/25 07/23/25 tablet,extended release 24 hr (Toprol XL) insulin glargine 100 unit/mL (3 30 unit subcut DAILY 07/23/25 07/23/25 mL) subcutaneous pen (Lantus Solostar U-100 Insulin) Previous Rx's ?Medication ?Instructions ?Recorded pen needle, diabetic 32 gauge x #150 ea 08/20/21 (BD Ultra-Fine Sienna Pen Needle) blood-glucose meter (FreeStyle #1 ea 08/21/21 Offerman Lite kit) FreeStyle Lancets 28 gauge #300 ea 10/21/21 (lancets) blood sugar diagnostic (FreeStyle #300 ea 06/16/22 Lite Strips) docusate sodium 100 mg capsule 100 mg PO DAILY Constipation #30 03/09/24 (Colace) caps tramadol 50 mg tablet 50 mg PO Q8H PRN pain #20 tabs 08/08/24 esomeprazole magnesium 40 mg 40 mg PO DAILY #90 caps 05/14/25 capsule,delayed release (Nexium) famotidine 40 mg tablet 40 mg PO BEDTIME #90 tabs 05/14/25 nitroglycerin 0.3 mg sublingual 0.3 mg sublingual Q5M PRN angina 07/24/25 tablet 10 days #14 tabs Allergies Allergy/AdvReac Type Severity Reaction Status Date / Time No Known Allergies Allergy Verified 08/26/25 10:40 [facility] Past Medical History Medical History Asthma Depression Anxiety Dizziness Headache Hx pulmonary embolism (~2016) Personal history of nicotine dependence History of colon polyps Osteophyte of cervical spine Stented coronary artery (~2012) Elevated LFTs CAD (coronary artery disease) Dyslipidemia Hypertension Diabetic polyneuropathy associated with type 2 diabetes mellitus FPC (current) use of insulin Diabetes type 2, uncontrolled (~2011) GERD (gastroesophageal reflux disease) Constipation Personal history of PE (pulmonary embolism) (~2013) Current use of anticoagulant therapy (~2013) Surgical History History of colonoscopy History of esophagogastroduodenoscopy (EGD) History of heart artery stent Family History Family History Father No problems noted. Mother Hx of colon cancer, stage I Hx of diabetes insipidus Social History Social History Household Members: None Housing: Apartment Are you a primary healthcare consultant to a significant other at home: No Do you presently have visiting nurse or other home services: Yes (type proof reproducer) Alcohol intake: never Patient Tobacco Use Status: Current everyday Tobacco user Tobacco use type: Cigarette Years Smoked: (onset 19yo, 1ppd x 42yrs, 40pyh - quit 2021) e-Cigarette/Vaping Use: Never Used Second Hand Smoke Exposure: No service: No Physical Exam ED Vital Signs: BMI result Body Mass Index 27.9 Course Course Course Narrative: RME, this is a rapid medical exam performed by Tommie Quiros please refer to primary provider for complete H&P- 65-year-old female presents for evaluation of atraumatic left arm pain in the area of the upper arm and shoulder. Her pain has been present for over a month. She reports having had a humerus x-ray and a left shoulder x-ray 08/06/2025 that has in her system which did not show any remarkable changes. The patient does have a history of PE in his anticoagulated. We will get an ultrasound of the left upper extremity to evaluate for DVT Discharge Plan Discharge Clinical Impression: Arm pain, left Patient Disposition: Left W/O Completing Treatment Prescriptions: No Action (DME) blood-glucose meter [FreeStyle Offerman Lite] Kit See Rx Instructions .ROUTE .MEDSUPPLY Qty: 1 0RF Rx Instructions: To test bg 3x/day (DME) lancets [FreeStyle Lancets] 28 gauge misc MISCELLANEOUS Qty: 300 11RF Rx Instructions: 3 times a day (DME) FreeStyle Lite Strips Strip See Rx Instructions .ROUTE .MEDSUPPLY Qty: 300 2RF Rx Instructions: 4 times a day tramadol 50 mg tablet 50 mg PO Q8H PRN (Reason: pain) Qty: 20 0RF metoprolol succinate [Toprol XL] 25 mg tablet extended release 24 hr 50 mg PO BID sertraline [Zoloft] 100 mg Tablet 200 mg PO BEDTIME Rx Instructions: take 2 tablets bid budesonide-formoterol 160-4.5 mcg/actuation Hfa Aerosol Inhaler 2 puff INHALATION BID (DME) blood-glucose meter [FreeStyle Lite Meter] Kit MISCELLANEOUS Rx Instructions: use as directed TID fenofibrate micronized 134 mg capsule 134 mg PO DAILY albuterol sulfate 2.5 mg /3 mL (0.083 %) solution for nebulization 2.5 mg inhalation Q6H PRN (Reason: wheezing) acetaminophen 500 mg Tablet 1,000 mg PO Q6H PRN (Reason: Pain) fluticasone propionate 50 mcg/actuation [place],Suspension 1 spray INTRANASAL BID Rx Instructions: administer into each nostril metformin 500 mg Tablet Extended Release 24 Hr 500 mg PO BID insulin glargine [Lantus Solostar U-100 Insulin] 100 unit/mL (3 mL) insulin pen 30 unit subcut DAILY nitroglycerin 0.3 mg tablet, sublingual 0.3 mg sublingual Q5M PRN (Reason: angina) 10 Days Qty: 14 0RF Rx Instructions: do not exceed 3 doses per episode (DME) pen needle, diabetic [BD Ultra-Fine Sienna Pen Needle] 32 gauge x 5/32 needle See Rx Instructions .ROUTE .MEDSUPPLY Qty: 150 11RF Rx Instructions: four times a day Eliquis 2.5 mg tablet 2.5 mg PO BID cholecalciferol (vitamin D3) 50 mcg (2,000 unit) tablet 50 mcg PO DAILY docusate sodium [Colace] 100 mg capsule 100 mg PO DAILY Qty: 30 3RF gabapentin 300 mg capsule 600 mg PO TID acarbose 100 mg tablet 100 mg PO TID bupropion HCl 100 mg tablet sustained-release 12 hr 100 mg PO DAILY zolpidem 10 mg tablet 10 mg PO BEDTIME PRN (Reason: Insomnia) lorazepam 0.5 mg tablet 0.5 mg PO BID PRN (Reason: Anxiety) tiotropium bromide [Spiriva with HandiHaler] 18 mcg capsule, w/inhalation device 1 cap inhalation DAILY cetirizine 10 mg tablet 10 mg PO DAILY atorvastatin 40 mg tablet 40 mg PO BEDTIME lidocaine 5 % adhesive patch,medicated 1 patch topical DAILY (DME) FreeStyle Dagmar 2 Sensor Kit See Rx Instructions .ROUTE Q2W Qty: 1 Rx Instructions: As directed magnesium oxide 400 mg (241.3 mg magnesium) tablet 400 mg PO DAILY Ozempic 1 mg/dose (4 mg/3 mL) pen injector 2 mg subcut FR esomeprazole magnesium [Nexium] 40 mg capsule,delayed release(DR/EC) 40 mg PO DAILY Qty: 90 2RF famotidine 40 mg tablet 40 mg PO BEDTIME Qty: 90 3RF Discharge Date/Time: 08/26/25 17:53
--- OUTSIDE RECORDS SUMMARY | 2025-08-26 20:28 | XMS_ITS | Encounter Summary ---
Author Organization [employer] Address 75 [facility] 7t [place] [address] Care Team Providers Care Back End Developer Name Role Phone Sepideh Hopkins JAVI Primary Care Provider Vaishali Minor PharmD Unavailable [phone] Encounter Details Date Type Department Care Team (Late st Contact Info) Description 01/10/2025 Orders Only [facility] [address] [place], [place] [phone] Provider, MD Jan Social History Tobacco Use [...] Upcoming Encounters Date Type Department Care Team ([facility] Contact Info) Description 08/30/2025 10:30 AM EDT Clinical Support [facility] MEDICINE [address] [place] [address] Shanelle Miller RN 505 [place] [address] 09/23/2025 11:00 AM EST Medication Management [facility] [address] [place] [address] Vaishali Minor, PharmD [address] [place] [address] 10/01/2025 9:15 AM EST Office Visit [facility] MEDICINE [address] [place] [address] Sepideh Hopkins ANP [address] [place] [address] 01/02/2026 10:00 AM EST Office Visit [facility] ADULT DENTAL [address] [place] [address] Linsey Dawkins documented as of this encounter [...] documented as of this encounter Care Teams Back End Developer Relationship Specialty Start Date End Date Sepideh Hopkins ANP [address] [place] [address] PCP - General Family Medicine 07/07/20 Vaishali Minor PharmD [address] [place] [address] Pharmacist Internal Medicine 10/29/24 Clarence Perkins Chocolate Refining RollerLearning And Development Assistant 06/24/25 documented as of this encounter
--- OUTSIDE RECORDS SUMMARY | 2025-08-26 20:28 | XMS_ITS | Encounter Summary ---
Author Organization [employer] Address 75 [facility] 7t [place] [address] Care Team Providers Care Motor Vehicle Or Caravan Salesperson Name Role Phone Sepideh Hopkins Primary Care Provider [phone] Vaishali Minor PharmD Unavailable Encounter Details Date Type Department Care Team (Late st Contact Info) Description 10/04/2022 Abstract [facility] ADULT DENTAL [address] [place] [address] Dental, Provider, DDS Social History Tobacco Use [...] Description 08/30/2025 10:30 AM EDT Clinical Support [facility] MED[facility]INE [address] [place] [address] Shanelle Miller, MENDEL 505 [place] [address] 09/23/2025 11:00 AM EST Medication Management [address] [address] Vaishali Minor, PharmD 230 [place] [address] 10/01/2025 9:15 AM EST Office Visit [address] [address] Sepideh Hopkins ANP [address] [place] [address] 01/02/2026 10:00 AM EST Office Visit [facility] ADULT [facility] [address] [place] [address] Linsey Dawkins documented as of this encounter [...] on filedocumented in this encounter Care Teams Motor Vehicle Or Caravan Salesperson Relationship Specialty Start Date End Date Sepideh Hopkins ANP [address] [place] [address] PCP - General Family Medicine 07/07/20 Vaishali Minor PharmD [address] [place] [address] Pharmacist Internal Medicine 10/29/24 Clarence Perkins Picket Labor UnionMarine Pilot 06/24/25 documented as of this encounter
--- OUTSIDE RECORDS SUMMARY | 2025-08-26 20:28 | XMS_ITS | Encounter Summary ---
Author Organization [employer] Address 75 [facility] 7t [place] [address] Care Team Providers Care Worm Sorter Name Role Phone Sepideh Hopkins Primary Care Provider [phone] Vaishali Minor PharmD Unavailable Reason for Visit * Reason Onset Date Comments Med Refill 08/05/2025 Encounter Details Date Type Department Care Team ([facility] st Contact Info) Description 08/05/2025 Telephone [facility] MEDICINE [address] [place], [place] [phone] Sepideh Hopkins ANP [address] [place] [address] Med Refill Social History Tobacco Use Types [...] 50 MG tablet To be sent to: [facility] - [place], [place] - [address] [place] [address] documented in this encounter Plan of Treatment Upcoming Encounters Date Type Department Care Team ([facility] st Contact Info) Description 08/30/2025 10:30 AM EDT Clinical Support [address] [address] Shanelle Miller RN [address] [place] [address] 09/23/2025 11:00 AM EST Medication Management [address] [address] Vaishali Minor, PharmD [address] [place] [address] 10/01/2025 9:15 AM EST Office Visit [address] [place] [address] Sepideh Hopkins ANP [address] [place] [address] 01/02/2026 10:00 AM EST Office Visit [facility] ADULT DENTAL [address] [place] [address] Linsey Dawkins documented as of this encounter Visit Diagnoses Not on filedocumented in this encounter Additional Health Concerns Assessment Noted Time PHQ-9 Depression Total Score: 5 11/23/19 25 1:05 PM EST documented as of this encounter Care Teams Worm Sorter Relationship Specialty Start Date End Date Sepideh Hopkins ANP [address] [place] [phone] PCP - General Family Medicine 07/07/20 Vaishali Minor PharmD [address] [place] [address] Pharmacist Internal Medicine 10/29/24 Clarence Perkins Mailing Machine OperatorMedical Scientific Officer 06/24/25 documented as of this encounter
--- OUTSIDE RECORDS SUMMARY | 2025-08-26 20:28 | XMS_ITS | Encounter Summary ---
Author Organization [employer] Address 75 [facility] 7t [place] [address] Care Team Providers Care Production Posting Clerk Name Role Phone Sepideh Hopkins Primary Care Provider [phone] Vaishali Minor PharmD Unavailable Reason for Visit * Reason Onset Date Comments Durable Medical Equipment 06/11/2025 Encounter Details Date Type Department Care Team ([facility] st Contact Info) Description 06/11/2025 Telephone [facility] MEDICINE [address] [place] [address] Sepideh Hopkins ANP 230 [place] [address] Durable Medical Equipment Social History Tobacco Use [...] 06/11/2025 10:28 AM EDT Tc from pt after school caregiver Clarence requesting status on walker discussed during office visit with PCP on 05/31. documented in this encounter Plan of Treatment Upcoming Encounters Date Type Department Care Team (Late st Contact Info) Description 08/30/2025 10:30 AM EDT Clinical Support [address] [address] Shanelle Miller RN 505 [place] [address] 09/23/2025 11:00 AM EST Medication Management [address] [address] Vaishali Minor PharmD [address] [place] [address] 10/01/2025 9:15 AM EST Office Visit [facility] [address] [place] [address] Sepideh Hopkins ANP [address] [place] [address] 01/02/2026 10:00 AM EST Office Visit [facility] ADULT DENTAL [address] [place] [address] Linsey Dawkins documented as of this encounter Visit Diagnoses Not on filedocumented in this encounter Additional Health Concerns Assessment Noted Time PHQ-9 Depression Total Score: 5 11/23/19 25 1:05 PM EST documented as of this encounter Care Teams Production Posting Clerk Relationship Specialty Start Date End Date Sepideh Hopkins ANP [address] [place] [address] PCP - General Family Medicine 07/07/20 Vaishali Minor, IrwinD [address] [place] [address] Pharmacist Internal Medicine 10/29/24 Clarence Perkins Deputy Chief ExecutiveSupervisor Paper Testing 06/24/25 documented as of this encounter
--- OUTSIDE RECORDS SUMMARY | 2025-08-26 20:28 | XMS_ITS | Encounter Summary ---
Author Organization [employer] Address 75 [facility] 7t [place] [address] Care Team Providers Care Manager Sports Name Role Phone Sepideh Hopkins Primary Care Provider [phone] Vaishali Minor PharmD Unavailable [phone] Reason for Visit * Reason Comments Med Refill Encounter Details Date Type Department Care Team ([facility] st Contact Info) Description 08/21/2025 Refill [facility] MED[facility] [address] [place], [place] [phone] Sepideh Hopkins ANP 230 [place] [address] Mixed anxiety and depressive disorder; Diabetic polyneuropathy [...] Description 08/30/2025 10:30 AM EDT Clinical Support [facility] [address] [place] [address] Shanelle Miller RN 505 [place] [address] 09/23/2025 11:00 AM EST Medication Management [facility] [address] [place] [address] Vaishali Minor, PharmD [address] [place] [address] 10/01/2025 9:15 AM EST Office Visit [facility] [address] [place] [address] Sepideh Hopkins, JAVI [address] [place] [address] 01/02/2026 10:00 AM EST Office Visit [facility] ADULT DENTAL [address] [place] [address] Linsey Dawkins documented as of this encounter Visit Diagnoses Diagnosis Mixed anxiety and depressive disorder Dysthymic disorder Diabetic polyneuropathy associated with type 2 diabetes mellitus (HCC) Allergic rhinitis, unspecified seasonality, unspecified trigger documented in this encounter Additional Health Concerns Assessment Noted Time PHQ-9 Depression Total Score: 5 11/23/19 25 1:05 PM EST documented as of this encounter Care Teams Manager Sports Relationship Specialty Start Date End Date Sepideh Hopkins ANP 230 [place] [address] PCP - General Family Medicine 07/07/20 Vaishali Minor PharmD 230 [place] [address] Pharmacist Internal Medicine 10/29/24 Clarence Perkins Furniture FabricatorFlooring Machine Feeder 06/24/25 documented as of this encounter
--- OUTSIDE RECORDS SUMMARY | 2025-08-26 20:28 | XMS_ITS | Encounter Summary ---
Author Organization [employer] Address [address] [facility] [address] [place] [address] Care Team Providers Care Steelworker Name Role Phone Sepideh Hopkins JAVI Primary Care Provider [phone] Vaishali Minor PharmD Unavailable Reason for Visit * Reason Comments Med Refill Encounter Details Date Type Department Care Team ([facility] Contact Info) Description 08/20/2025 Refill [facility] [address] [place] [address] Dina Kulkarni MD 230 [place] [address] Allergic rhinitis, unspecified seasonality, unspecified trigger Social [...] Description 08/30/2025 10:30 AM EDT Clinical Support [facility] MEDICINE [address] [place] [address] Shanelle Miller, MENDEL [address] [place] [address] 09/23/2025 11:00 AM EST Medication Management [facility] MEDICINE [address] [place] [address] Vaishali Minor, PharmD [address] [place] [address] 10/01/2025 9:15 AM EST Office Visit [facility] MEDICINE [address] [place] [address] Sepideh Hopkins ANP [address] [place] [address] 01/02/2026 10:00 AM EST Office Visit [facility] ADULT DENTAL [address] [place] [address] Linsey Dawkins documented as of this encounter Visit Diagnoses Diagnosis Allergic rhinitis, unspecified seasonality, unspecified trigger documented in this encounter Additional Health Concerns Assessment Noted Time PHQ-9 Depression Total Score: 5 11/23/19 25 1:05 PM EST documented as of this encounter Care Teams Steelworker Relationship Specialty Start Date End Date Sepideh Hopkins ANP 230 [place] [address] PCP - General Family Medicine 07/07/20 Vaishali Minor PharmD 230 [place] [address] Pharmacist Internal Medicine 10/29/24 Clarence Perkins Hebrew ProfessorHeating Technician 06/24/25 documented as of this encounter
--- OUTSIDE RECORDS SUMMARY | 2025-08-26 20:28 | XMS_ITS | Encounter Summary ---
Author Organization [employer] Address [address] [facility] 7t [place] [address] Care Team Providers Care Dog Races Manager Name Role Phone Sepideh Hopkins Primary Care Provider [phone] Vaishali Minor PharmD Unavailable [phone] Encounter Details Date Type Department Care Team ([facility] st Contact Info) Description 06/21/2025 Results Follow-Up [facility] MEDIC[facility] [address] [place] [address] Sepideh Hopkins ANP 230 [place] [address] Magnesium Social History Tobacco Use Types Packs/Day [...] Description 08/30/2025 10:30 AM EDT Clinical Support [facility] [address] [place] [address] Shanelle Miller RN 505 [place] [address] 09/23/2025 11:00 AM EST Medication Management [facility] [address] [place] [address] Vaishali Minor, IrwinD [address] [place] [address] 10/01/2025 9:15 AM EST Office Visit [address] [address] Sepideh Hopkins ANP [address] [place] [address] 01/02/2026 10:00 AM EST Office Visit [facility] ADULT DENTAL [address] [place] [place] [address] Linsey Dawkins documented as of this encounter Procedures Procedure Name Priority Date/Time Associated Diagnosis Comments MAGNESIUM Routine 06/27/2025 2:37 PM EDT Hypomagnesemia documented in this encounter Results * (ABNORMAL) Magnesium (06/27/2025 2:37 PM EDT) Magnesium 1.2(LL) 1.6 - 2.6 mg/dL [facility] Comment:Critical value for t est(s):MAGS Results called to and readback by:DEBBIE Jones Person calling: DiavibeSF Date: [id number]:1700 Blood Venous blood specimen / Unknown 06/27/2025 2:37 PM EDT 06/27/2025 4:20 PM EDT Sepideh [facility] BLOOD ORDERABLES Final Resul t [facility] [address] [place] [address] [phone] documented in this encounter Visit Diagnoses Diagnosis Hypomagnesemia- Primary Disorders of magnesium metabolism documented in this encounter Additional Health Concerns Assessment Noted Time PHQ-9 Depression Total Score: 5 11/23/19 25 1:05 PM EST documented as of this encounter Care Teams Dog Races Manager Relationship Specialty Start Date End Date Sepideh Hopkins ANP [address] [facility] [place] [address] PCP - General Family Medicine 07/07/20 Vaish[place] [address] Pharmacist Internal Medicine 10/29/24 Clarence Perkins Furniture FinisherHouse Wrecker 06/24/25 documented as of this encounter
--- OUTSIDE RECORDS SUMMARY | 2025-08-26 20:28 | XMS_ITS | Encounter Summary ---
Author Organization [employer] Address [address] [facility] 7t [place] [address] Care Team Providers Care Bee Raiser Name Role Phone Sepideh Hopkins Primary Care Provider [phone] Vaishali Minor PharmD Unavailable [phone] Encounter Details Date Type Department Care Team ([facility] st Contact Info) Description 05/02/2025 Orders Only [facility] MEDICINE [address] [place] [address] Sepideh Hopkins ANP 230 [place] [address] Social History Tobacco Use Types Packs/Day Years [...] Description 08/30/2025 10:30 AM EDT Clinical Support [facility] MEDICINE [address] [place] [address] Shanelle Miller, RN 505 [place] [address] 09/23/2025 11:00 AM EST Medication Management [address] [address] Vaishali Minor, PharmD [address] [place] [address] 10/01/2025 9:15 AM EST Office Visit [facility] MEDICINE [address] [place] [address] Sepideh Hopkins ANP [address] [place] [address] 01/02/2026 10:00 AM EST Office Visit [facility] ADULT DENTAL [address] [place] [address] Linsey Dawkins documented as of this encounter Visit Diagnoses Not on filedocumented in this encounter Additional Health Concerns Assessment Noted Time PHQ-9 Depression Total Score: 5 11/23/19 25 1:05 PM EST documented as of this encounter Care Teams Bee Raiser Relationship Specialty Start Date End Date Sepideh Hopkins ANP 230 [place] [address] PCP - General Family Medicine 07/07/20 Vaishali Minor PharmD 230 [place] [address] Pharmacist Internal Medicine 10/29/24 Clarence Perkins Stereotype CasterProduce Weigher 06/24/25 documented as of this encounter
--- OUTSIDE RECORDS SUMMARY | 2025-08-26 20:28 | XMS_ITS | Encounter Summary ---
Author Organization [employer] Address [address] [facility] 7t [place] [address] Care Team Providers Care Transportation Associate Name Role Phone Sepideh Hopkins Primary Care Provider [phone] Vaishali Minor PharmD Unavailable Encounter Details Date Type Department Care Team (Latest Contact Info) Description 07/23/2022 Abstract [facility] CONVERSIONS Dental, Provider, DDS Social History [...] Description 08/30/2025 10:30 AM EDT Clinical Support [facility] MEDICINE [address] [place] [address] Shanelle Miller RN 505 [place] [address] 09/23/2025 11:00 AM EST Medication Management [facility] MEDICINE [address] [place] [address] Vaishali Minor, PharmD 230 [place] [address] 10/01/2025 9:15 AM EST Office Visit [facility] MEDICINE [address] [place] [address] Sepideh Hopkins ANP 230 [place] [address] 01/02/2026 10:00 AM EST Office Visit [facility] ADULT DENTAL [address] [place] [address] Linsey Dawkins documented as of this encounter Visit Diagnoses Not on filedocumented in this encounter Care Teams Transportation Associate Relationship Specialty Start Date End Date Sepideh Hopkins ANP [address] [place] [address] PCP - General Family Medicine 07/07/20 Vaishali Minor PharmD [address] [place] [address] Pharmacist Internal Medicine 10/29/24 Clarence Perkins Novelty Chain MakerSand Blaster 06/24/25 documented as of this encounter
--- OUTSIDE RECORDS SUMMARY | 2025-08-26 20:28 | XMS_ITS | Encounter Summary ---
Author Organization [employer] Address [address] [facility] [address] [place] [address] Care Team Providers Care Chamber Magistrate Name Role Phone Sepideh Hopkins Primary Care Provider [phone] Vaishali Minor PharmD Unavailable Reason for Visit * Reason Comments Med Refill Encounter Details Date Type Department Care Team (Late Contact Info) Description 06/16/2023 Refill [facility] MEDICINE [address] [place] [address] [phone] Tisha Cornelius FNP Social History Tobacco Use [...] Description 08/30/2025 10:30 AM EDT Clinical Support [facility] MEDICINE [address] [place] [address] Shanelle Miller RN 505 [place], [place] [phone] 09/23/2025 11:00 AM EST Medication Management [facility] MEDICINE [address] [place] [address] Vaishali Minor, PharmD 230 [place] [address] 10/01/2025 9:15 AM EST Office Visit [facility] MEDICINE [address] [place] [address] Sepideh Hopkins ANP 230 [place] [address] 01/02/2026 10:00 AM EST Office Visit [facility] ADULT DENTAL [address] [place] [address] Linsey Dawkins documented as of this encounter Visit Diagnoses Not on filedocumented in this encounter Care Teams Chamber Magistrate Relationship Specialty Start Date End Date Sepideh Hopkins ANP [address] [place] [address] PCP - General Family Medicine 07/07/20 Vaishali Minor PharmD [address] [place] [address] Pharmacist Internal Medicine 10/29/24 Clarence Perkins Architectural TechnicianCrate Icer 06/24/25 documented as of this encounter
--- OUTSIDE RECORDS SUMMARY | 2025-08-26 20:28 | XMS_ITS | Encounter Summary ---
Author Organization [employer] Address [address] [facility] 7t [place] [address] Care Team Providers Care Radio Communications Mechanician Name Role Phone Sepideh Hopkins Primary Care Provider [phone] Vaishali Minor PharmD Unavailable Reason for Visit * Reason Onset Date Comments Imaging Orders 08/26/2025 Encounter Details Date Type Department Care Team ([facility] st Contact Info) Description 08/26/2025 Telephone [facility] MEDICINE 230 [place] [address] Sepideh Hopkins ANP 230 [place] [address] Imaging Orders Social History Tobacco Use Types Packs/Day Years [...] Telephone Encounter - Sharon Garrison RN - 08/26/2025 1:42 PM EDT Return call placed to the pt with S spanish interpreter/translator #[id number] but no answer and no VM available to leavea message. Will postpone this message for another attempt to contact. * Telephone Encounter - Rolando Cantrell - 08/26/2025 11:56 AM EDT Tc from pt reporting she went to the ER the morning of 08/26. Pt was seen for arm pain and [facility] doctor did not see pt due to needing an MRI. Pt was released with instructions to call PCP to follow up and requesting a referral for an MRI. Contact pt at [phone] (lithuanian) documented in this encounter Plan of Treatment Upcoming Encounters Date Type Department Care Team ([facility] st Contact Info) Description 08/30/2025 10:30 AM EDT Clinical Support [address] [address] Shanelle Miller, MENDEL [address] [place] [address] 09/23/2025 11:00 AM EST Medication Management [facility] MEDICINE [address] [place] [address] Vaishali Minor PharmD [address] [place] [address] 10/01/2025 9:15 AM EST Office Visit [facility] MEDICINE [address] [place] [address] Sepideh Hopkins ANP [address] [place] [address] 01/02/2026 10:00 AM EST Office Visit [facility] ADULT DENTAL [address] [place] [address] Linsey Dawkins documented as of this encounter Visit Diagnoses Not on filedocumented in this encounter Additional Health Concerns Assessment Noted Time PHQ-9 Depression Total Score: 5 11/23/19 25 1:05 PM EST documented as of this encounter Care Teams Radio Communications Mechanician Relationship Specialty Start Date End Date Sepideh Hopkins ANP [address] [place] [address] PCP - General Family Medicine 07/07/20 Vaishali Minor PharmD [address] [place] [address] Pharmacist Internal Medicine 10/29/24 Clarence Perkins Legal ArbitratorSecurity Specialist 06/24/25 documented as of this encounter
--- OUTSIDE RECORDS SUMMARY | 2025-08-26 20:29 | XMS_ITS | Clinical Summary ---
Author Organization [facility] Address [address] [facility] [address] [place] [address] Care Team Providers Care Senior It Architect Name Role Phone Neil Bernard JAVI Primary Care Provider [phone] Vaishali Minor PharmD Unavailable [phone] Allergies No known active allergies Medications * [...] by mouth once daily Active sodium chloride (Stokes) 0.65 % nasal sprayIndications :Nasal congestion 2 sprays into each nostril twice daily 30 mL 3 025 Active glucose (Glutose) 40 % gel oral gelIndications:T ype 2 diabetes mellitus with hyperlipidemia (HCC) Use as needed for low blood sugar 45 g 11 Active acetaminophen (Tylenol Extra Strength) 500 MG tabletIndication s:Chronic maxillary sinusitis Take 1-2 tablets by mouth every 8 hours as needed 30 tablet Active insulin pen needle (BD Pen Needle Sienna U/F) 32G x 4 mm miscIndications: Type 2 diabetes mellitus with hyperglycemia (HCC) Use as instructed with insulin administration once daily 100 each 3 Active atorvastatin (Lipitor) 40 MG tabletIndication s:Hyperlipidemia , unspecified hyperlipidemia type TAKE 1 TABLET BY MOUTH AT BEDTIME 90 tablet 3 Active metFORMIN XR (Glucophage-XR) 500 MG 24 hr tablet TAKE 1 TABLET BY MOUTH TWICE DAILY IN THE MORNING AND IN THE EVENING WITH MEALS 180 tablet 025 Active fenofibrate micronized (Lofibra) 134 MG [...] medical assistance becomes available. 2 each 2 025 2025 Active apixaban (Eliquis) 2.5 MG tabletIndication s:History of pulmonary embolism TAKE 1 TABLET BY MOUTH TWICE DAILY IN THE MORNING AND IN THE EVENING 60 tablet 3 Active cholecalciferol VITAMIN D (Vitamin D-3) 50 MCG (1999 UT) tablet TAKE 1 TABLET BY MOUTH EVERY MORNING 90 tablet 1 Active Continuous Glucose Sensor (FreeStyle Dagmar 2 [...] 911 IF NO RELIEF AFTER FIRST DOSE Active albuterol 108 (90 Base) MCG/ACT inhalerIndicatio [...] 34 UNITS ONCE DAILY 15 mL 1 Active buPROPion SR (Wellbutrin SR) 100 MG 12 hr tabletIndication s:Mixed anxiety and depressive disorder TAKE 1 TABLET BY MOUTH EVERY MORNING 30 tablet 2 Active gabapentin (Neurontin) 300 MG capsuleIndicatio ns:Diabetic polyneuropathy associated with type 2 diabetes mellitus (HCC) TAKE 2 CAPSULES BY MOUTH TWICE DAILY IN THE MORNING AND AT BEDTIME 120 capsule 2 Active Tiotropium [place] (Spiriva HandiHaler) [address] 1 Act into inhaler and inhale Once per day. USE 1 CAPSULE FOR INHALATION ONCE A DAY DO NOT SWALLOW CAPSULE 30 capsule 5 Active Symbicort 160-4.5 MCG/ACT inhaler INHALE 2 PUFFS BY MOUTH TWICE DAILY IN THE MORNING AND AT BEDTIME. RINSE MOUTH AFTER USING. 10.2 g 5 025 Active fluticasone (Flonase) 50 MCG/ACT nasal sprayIndications :Allergic rhinitis, unspecified seasonality, unspecified trigger SPRAY 1 SPRAY IN EACH NOSTRIL TWICE DAILY 48 g 1 025 Active nitroglycerin (Nitrostat) 0.[address] 1 tablet under the tongue. 020 2024 Discontinued(M ed list cleanup (will not trigger notification to Pharmacy)) albuterol 108 (90 Base) MCG/ACT inhaler Inhale 2 puffs every 4 (four) hours. 18 g 5 024 2024 Discontinued(R eorder (will not trigger notification to Pharmacy)) tiotropium (Spiriva HandiHaler) 18 MCG inhalation capsule USE 1 CAPSULE FOR INHALATION EVERY MORNING. DO NOT SWALLOW CAPSULE. 30 capsule 5 025 2024 Discontinued Symbicort 160-4.5 MCG/ACT inhaler INHALE 2 PUFFS TWICE DAILY IN THE MORNING AND AT BEDTIME. RINSE MOUTH AFTER USING. DO NOT SWALLOW. 10.2 g 5 025 2024 Discontinued fluticasone (Flonase) 50 MCG/ACT nasal sprayIndications :Allergic rhinitis, unspecified seasonality, unspecified trigger SPRAY 1 SPRAY IN EACH NOSTRIL TWICE DAILY 48 g 1 025 2024 Discontinued(R eorder (will not trigger notification to Pharmacy)) buPROPion SR (Wellbutrin SR) 100 MG 12 hr tabletIndication s:Mixed anxiety and depressive disorder Take 1 tablet (100 mg) by mouth in the morning. 30 tablet 2 025 2024 Discontinued gabapentin (Neurontin) 300 MG capsuleIndicatio ns:Diabetic polyneuropathy associated with type 2 diabetes mellitus (HCC) Take 2 capsules AM and 2 capsules at bedtime 120 capsule 2 2024 Discontinued insulin glargine (Lantus SoloStar) 100 [...] here for a HDF Recently admiited to [facility] from 07/23/25-07/24/25 Patient presented for evaluation of [...] Encounters Date Type Department Care Team Description 08/26/2025 Telephone [facility] [address] [place], [place] [phone] Neil Bernard ANP Imaging Orders 08/21/2025 Refill [facility] [address] [place] [address] Neil Bernard ANP Mixed anxiety and depressive disorder; Diabetic polyneuropathy associated with type 2 diabetes mellitus (HCC); Allergic rhinitis, unspecified seasonality, unspecified trigger 08/20/2025 Refill [facility] [address] [place], [place] [phone] Dina Kulkarni MD Allergic rhinitis, unspecified seasonality, unspecified trigger 08/13/2025 Telephone [facility] [address] [place] [phone] Neil Bernard ANP Results 08/07/2025 Travel 08/06/2025 9:30 AM EDT Office Visit [facility] [address] [place] [phone] Ramez Schroeder MD Hospital discharge follow-up (Primary Dx); Acute pain of left shoulder; Moderate persistent asthma without complication; Encounter for immunization 08/06/2025 Refill [facility] [address] [place] [address] Shanelle Miller RN Chronic bilateral low back pain without sciatica 08/06/2025 Refill [facility] [address] [place] [phone] Neil Bernard ANP Chronic bilateral low back pain without sciatica 08/06/2025 Travel 08/05/2025 Telephone [facility] [address] [place] [phone] Neil Bernard ANP Med Refill 08/05/2025 Telephone [facility] [address] [place] [address] Ramez Schroeder MD chart prep 07/31/2025 Telephone [facility] [address] [place] [phone] Vaishali Minor, PharmD Triage 07/30/2025 Telephone [facility] [address] [place] [address]36 Vaishali Minor, PharmD Call back request 07/26/2025 Telephone [facility] [address] [place] [phone] Vaishali Minor, PharmD 07/25/2025 Telephone [facility] [address] [place] [phone] Veronica Gupta, MENDEL Hospital Follow-up 07/23/2025 10:20 AM EDT Office Visit [facility] [address] [place] [address] [phone] Nancy Ma MD Unstable angina ([facility]) (Primary Dx); Chest pain, unspecified type 07/23/2025 Orders Only [facility] External Provider, [facility] 07/23/2025 Telephone [facility] [address] [place] [phone] Adrianna Hammonds RN 07/23/2025 Travel 07/22/2025 Travel 07/19/[address] [phone] Neil Bernard ANP nov recall 07/19/2025 Results Follow-Up [address] [address] Neil Bernard ANP Culture, Urine, Routine 07/19/2025 Orders Only [address] [address] Neil Bernard ANP Hypomagnesemia (Primary Dx) 07/05/2025 1:00 PM EDT Office Visit [facility] [address] [place] [phone] Everett Angeles, YENI 07/03/2025 2:30 PM EDT Office Visit [facility] [address] [place] [address] Everett Angeles, YENI 07/03/2025 Telephone [facility] [address] [place] [phone] Everett Angeles, DMD Dr. Angeles case delivery 06/28/[address] [address] Sharon Garrison RN Medication Directions 06/28/2025 Orders Only [address] [phone] Neil Bernard ANP Hypomagnesemia (Primary Dx) 06/27/2025 3:30 PM EDT Office Visit [facility] [address] [place] [address] [phone] Everett Angeles, DMD 06/27/2025 Telephone [facility] [address] [place] [address] Neil Bernard ANP Critical Magnesium 06/27/2025 Refill [facility] [address] [place] [address] Neil Bernard ANP Chronic bilateral low back pain without sciatica 06/26/2025 Refill [facility] [address] [place] [address] Neil Bernard ANP Chronic bilateral low back pain without sciatica 06/24/2025 3:00 PM EDT Office Visit [facility] [address] [place] [address] Raysa Sneed 06/24/2025 Telephone [facility] [address] [place] [address] Neil Bernard ANP Care Coordination (ICP Care Plan) 06/24/2025 Telephone [facility] [address] [place] [address] Everett Angeles DMD 06/21/2025 11:00 AM EDT Office Visit [facility] [address] [place] [address] Everett Angeles DMD 06/21/2025 Results Follow-Up [facility] [address] [place] [address] Neil Bernard ANP Magnesium 06/21/2025 Telephone [facility] [address] [place] [address] Neil Bernard ANP CRITICAL LAB 06/21/2025 Refill [facility] [address] [place] [address] Neil Bernard ANP Neck pain 06/19/2025 Refill [facility] [address] [place] [address] Vaishali Minor, Leonidas Type 2 diabetes mellitus with hyperlipidemia (CMS/HCC) (CMS/HCC) 06/17/2025 Orders Only [facility] [address] [place] [address] Neil Bernard ANP Hypomagnesemia (Primary Dx) 06/17/2025 Travel 06/11/2025 Telephone [facility] [address] [place] [address] Neil Bernard ANP Durable Medical Equipment 06/11/2025 Results Follow-Up [facility] [address] [place] [address] Neil Bernard ANP BI Mammogram Diagnostic Tomosynthesis Bilateral 06/11/2025 Telephone [facility] [address] [place] [address] Neil Bernard ANP Durable Medical Equipment 06/03/2025 Refill [facility] [address] [place] [address] Neil Bernard ANP Mixed anxiety and depressive disorder; Diabetic polyneuropathy associated with type 2 diabetes mellitus (CMS/HCC) 06/02/2025 Refill [facility] [address] [place] [address] Neil Bernard ANP Diabetic polyneuropathy associated with type 2 diabetes mellitus ([facility]/HCC); Mixed anxiety and depressive disorder 05/31/2025 1:00 PM EDT Office Visit [facility] [address] [place] [address] Neil Bernard ANP Dizziness (Primary Dx); Type 2 diabetes mellitus with hyperlipidemia (CMS/HCC) ([facility]/HCC); Nausea and vomiting, unspecified vomiting type; Breast pain, left; Risk for falls 05/31/2025 Travel 05/30/2025 Telephone [facility] [address] [place] [address] Neil Bernard ANP chart prep 05/27/2025 Refill [facility] [address] [place] [address] Neil Bernard ANP History of pulmonary embolism from Last 3 Months Immunizations Immunization Administration [...] Description 08/30/2025 10:30 AM EDT Clinical Support [facility] [address] [place] [address] Shanelle Miller, RN [address] [place] [address] 09/23/2025 11:00 AM EST Medication Management [address] [address] Vaishali Minor, PharmD [address] [place] [address] 10/01/2025 9:15 AM EST Office Visit [facility] [address] [place] [address] Neil Bernard, JAVI [address] [place] [address] 01/02/2026 10:00 AM EST Office Visit [facility] [address] [place] [address] Linsey Dawkins Health Maintenance Due Date Last [...] AM EDT Narrative 08/06/2025 10:38 AM EDT [address] XRay Report Signed Patient: Joelle Myers I MR#: [id number] : 1960 Acct:[id number] Age/Sex: 65 / F ADM Date: 08/06/25 Loc: HO.HHCX Attending Dr: Ramez Newman MD Ordering Physician: Ramez Newman MD Date of Service: 08/06/25 Procedure(s): XR humerus LT Accession Number(s): [id number] cc: Ramez Newman MD; NEIL BERNARD NP [...] 08/06/25 1036 DD/ 1030 TD/TT: 08/06/25 1031 Fancy Wire Drawer: Procedure Note Jasoninterpreter, Image - 08/06/[address] [address] XRay Report Signed Patient: Joelle Myers IMR#: [id number] : 1960cct:[id number] Age/Sex: 65 / FADM Date: 08/06/25 Loc: HO.HHCX Attending Dr: Ramez Newman MD Ordering Physician: Ramez Newman MD Date of Service: 08/06/25 Procedure(s): XR humerus LT Accession Number(s): [id number] cc: Ramez Newman MD; NEIL BERNARD NP [...] 08/06/25 1036 DD/ 1030 TD/TT: 08/06/25 1031 Fancy Wire Drawer: us Ramez Perkins MD IMG XR PROCEDURES Quentin laura Result - Final * XR Shoulder 2+ Views Left (08/06/2025 10:30 AM EDT) Anatomical Region Laterality Modality Upper Extremities, Shoulder Left Radi ographic Imaging 08/06/2025 10:3 0 AM EDT Narrative 08/06/2025 10:39 AM EDT [address] [address] XRay Report Signed Patient: Joelle Myers I MR#: [id number] 426 : 1960 Acct:[id number] Age/Sex: 65 / F ADM Date: 08/06/25 Loc: HO.[facility] Attending Dr: Ramez Newman MD Ordering Physician: Ramez Newman MD Date of Service: 08/06/25 Procedure(s): XR shoulder LT min 2V Accession Number(s): [id number] cc: Ramez Newman MD; NEIL BERNARD NP [...] 08/06/25 1036 DD/ 1030 TD/TT: 08/06/25 1031 Fancy Wire Drawer: Procedure Note Donotuseinterpreter, Image - 08/06/[address] [address] XRay Report Signed Patient: Joelle Myers IMR#: [id number] : 1960cct:[id number] Age/Sex: 65 / FADM Date: 08/06/25 Loc: HO.HHCX Attending Dr: Ramez Newman MD Ordering Physician: Ramez Newman MD Date of Service: 08/06/25 Procedure(s): XR shoulder LT min 2V Accession Number(s): [id number] cc: Ramez Newamn MD; NEIL BERNARD NP Reason for Exam: [...] 08/06/25 1036 DD/ 1030 TD/TT: 08/06/25 1031 Fancy Wire Drawer: Ramez Perkins MD IMG XR PROCEDURES Quentin laura Result - Final * (ABNORMAL) POCT glucose manually resulted (08/06/2025 10:05 AM EDT) Only the most recent of2 resultswithin the time period is included. Glucose Blood, POC 332(A) 60 - 200 mg/dL QC Media Lot # [id number] Lot# Expiration Date , Blood Capillary blood specimen / Unknown 08/06/2025 10:05 AM EDT Ramez Perkins MD POINT OF CARE TEST EN TER/EDIT ORDERABLES Final Result * (ABNORMAL) POCT glycosylated hemoglobin (Hgb A1c) (08/06/2025 10:04 AM EDT) Hemoglobin A1C 8.4(A) 4.0 - 5.7 % QC Media Lot # [id number] Lot# Expiration Date [id number] Blood Capillary blood specimen / Unknown 08/06/2025 10:04 AM EDT Ramez Perkins MD POINT OF CARE TEST EN TER/EDIT ORDERABLES Final Result * NM heart perfusion SPECT stress and rest (07/24/2025 8:55 AM EDT) Anatomical Region Laterality Modality Body Nuclear Medicine 07/24/2025 8:55 AM EDT Narrative 07/24/2025 12:32 PM EDT [address] [address] Nuclear Medicine Report Signed Patient: Joelle Myers I MR#: [id number] 426 : 1960 Acct:[id number] Age/Sex: 65 / F ADM Date: 07/23/25 Loc: [facility] 486-[address]: Georgette Cohen MD Ordering Physician: Rashid Recinos MD Date of Service: 07/24/25 Procedure(s): NM ramon perf SPECT rest str Accession Number(s): [id number] cc: NEIL BERNARD ASSURANCE ASSISTANT; Rashid Recinos MD Reason for Exam: chest [...] MD 07/24/2025 12:30 PM EDT RP Workstation: [employer] Dictated By: Rashid Recinos MD Signed By: <Electronically signed by Rashid Recinos MD in OV> 07/24/25 1230 DD/ 0855 TD/TT: 07/24/25 1115 Fancy Wire Drawer: Procedure Note Donotuseinterpreter, Image - 07/24/2025 [place] [address] Nuclear Medicine Report Signed Patient: Joelle Myers IMR#: [id number] : 1960cct:[id number] Age/Sex: 65 / FADM Date: 07/23/25 Loc: [facility] 486-[address]: Georgette Cohen MD Ordering Physician: Rashid Recinos MD Date of Service: 07/24/25 Procedure(s): NM ramon perf SPECT rest str Accession Number(s): [id number] cc: NEIL BERNARD ASSURANCE ASSISTANT; Rashid Recinos MD Reason for Exam: chest [...] 07/24/25 1230 DD/ 0855 TD/TT: 07/24/25 1115 Fancy Wire Drawer: [facility] External Provider IMG NM PROCEDURES Edited Result [...] EDT 06/27/2025 4:25 PM EDT Comment:UACC Narrative [facility] - 06/29/2025 10:59 AM EDT Urine Culture No growth. Specimen Source: Urine clean catch us Neil [facility] MICROBIOLOGY - GENERAL ORDER BARRERA Final Result Performing Organization Address [facility] de Phone Number [facility] [address] [place] [address] [phone] * (ABNORMAL) Magnesium (06/27/2025 2:37 PM EDT) Only the most recent of2 resultswithin the time period is included. Magnesium 1.2(LL) 1.6 - 2.6 mg/dL [facility] Comment:Critical value for t est(s):MAGS Results called to and readback by:DEBBIE Jones Person calling: [employer] Date: [id number] Blood Venous blood specimen / Unknown 06/27/2025 2:37 PM EDT 06/27/2025 4:20 PM EDT us Neil Bernard ANP LAB BLOOD ORDERABLES Final Resul t Performing Organization Address [facility] Co de Phone Number [facility] [address] [place] [address] [phone] * BI US Breast Limited Left (06/11/2025 10:30 AM EDT) Anatomical Region Laterality Modality Breast Left Ultrasound 06/11/2025 10:3 0 AM EDT Narrative 06/11/2025 10:59 AM EDT [facility] [address] [place] [address] Ultrasound Report Signed Patient: Joelle Myers I MR#: [id number] 426 : 1960 Acct:[id number] Age/Sex: 64 / F ADM Date: 06/11/25 Loc: HO.MAMMO Attending Dr: Neil Bernard NP Ordering Physician: NEIL BERNARD NP Date of Service: 06/11/25 Procedure(s): US breast LT limited Accession Number(s): [id number] cc: NEIL BERNARD NP EXAMINATIONS: 1. MM [...] 06/11/25 1056 DD/ 1030 TD/TT: 06/11/25 1049 Fancy Wire Drawer: Procedure Note Donotuseinterpreter, Image - 06/11/2025 [place] [facility] [address] [place], [place] [address] Ultrasound Report Signed Patient: Joelle Myers IMR#: [id number] : 1Acct:[id number] Age/Sex: 64 / FADM Date: 06/11/25 Loc: HO.MAMMO Attending Dr: Neil Bernard NP Ordering Physician: NEIL BERNARD NP Date of Service: 06/11/25 Procedure(s): US breast LT limited Accession Number(s): [id number] cc: NEIL BERNARD NP EXAMINATIONS: 1. MM [...] 06/11/25 1056 DD/ 1030 TD/TT: 06/11/25 1049 Fancy Wire Drawer: us Niel Bernard ANP IMG US PROCEDURES Edited Result - Final * BI Mammogram Diagnostic Tomosynthesis Bilateral (06/11/2025 10:05 AM EDT) Anatomical Region Laterality Modality Breast Bilateral Mammography 06/11/2025 10:0 5 AM EDT Narrative 06/11/2025 10:59 AM EDT [facility] [address] [place] [address] Mammography Report Signed Patient: Joelle Myers I MR#: [id number] 426 : 1960 Acct:[id number] Age/Sex: 64 / F ADM Date: 06/11/25 Loc: .MAMMO Attending Dr: Neil Bernard NP Ordering Physician: NEIL BERNARD NP Results: 2Benign Fin dingadrian Date of Service: 06/11/25 Follow Up: 1 Year From Orig inal Mammogram Procedure(s): MM tomosynthesis diagnostic BI Accession Number(s): [id number] cc: NEIL BERNARD NP EXAMINATIONS: 1. MM [...] Otero MD Signed By: <Electronically signed by Lno Otero MD in OV> 06/11/25 1056 DD/ 1005 TD/TT: 06/11/25 1030 Fancy Wire Drawer: Procedure Note Donotuseinterpreter, Image - 06/11/20[facility] [address] [place] [address] Mammography Report Signed Patient: Joelle Myers [facility]#: [id number] 426 : 1960cct:[id number] Age/Sex: 64 / FADM Date: 06/11/25 Loc: HO.MAMMO Attending Dr: Neil Bernard NP Ordering Physician: NEIL BENRARD NPResults: 2Benign Ashu ho Date of Service: 06/11/25Follow Up: 1 Year From Orig inal Mammogram Procedure(s): MM tomosynthesis diagnostic BI Accession Number(s): [id number] cc: NEIL BERNARD NP EXAMINATIONS: 1. MM [...] 06/11/25 1056 DD/ 1005 TD/TT: 06/11/25 1030 Fancy Wire Drawer: us Neil Bernard ANP IMG BI PROCEDURES Edited Result - Final * CT Lung Screening Low dose (06/04/2025 4:30 PM EDT) Anatomical Region Laterality Modality Lung Computed Tomogra phy 06/04/2025 4:30 PM EDT Narrative 06/04/2025 4:31 PM EDT [place] [address] CT Scan Report Signed Patient: Joelle Myers I MR#: [id number] 426 : 1960 Acct:[id number] Age/Sex: 64 / F ADM Date: 06/03/25 Loc: HO.CT Attending Dr: Tracey Moreno PA-C Ordering Physician: Tracey Moreno PA-C Date of Service: 06/03/25 Procedure(s): CT lung screening Accession Number(s): [id number] cc: Tracey Moreno PA-C; NEIL BERNARD NP Report Number: [id number]: Total DLP = 39.00 mGy-cm CLINICAL HISTORY: [...] CHEST 1 VIEW - 09/17/24 15:[address]/IN/SR - CT LUNG SCREENING - 05/30/24 13:[address]/IN/SR - CT LUNG SCREENING - 05/04/24 12:02 [...] 06/04/25 1631 DD/ 1630 TD/TT: 06/04/25 1630 Fancy Wire Drawer: Procedure Note Donotuseinterpreter, Image - 06/04/[address] [place] [address] [address] Scan Report Signed Patient: Joelle Myers IMR#: [id number] : 1960cct:[id number] Age/Sex: 64 / FADM Date: 06/03/25 Loc: .CT Attending Dr: Tracey Moreno PA-C Ordering Physician: Tracey Moreno PA-C Date of Service: 06/03/25 Procedure(s): CT lung screening Accession Number(s): [id number] cc: Tracey Moreno PA-C; NEIL BERNARD NP Report Number: [id number]: Total DLP = 39.00 mGy-cm CLINICAL HISTORY: [...] CHEST 1 VIEW - 09/17/24 15:[address]/IN/SR - CT LUNG SCREENING - 05/30/24 13:[address]/IN/SR - CT LUNG SCREENING - 05/04/24 12:02 [...] 06/04/25 1631 DD/ 1630 TD/TT: 06/04/25 1630 Fancy Wire Drawer: [facility] External Provider IMG CT PROCEDURES Final Result * Hm Colonoscopy (01/09/2025 8:51 AM EST) Historical Provider HEALTH MAINTENANCE Final Result * Lipid Panel, Standard (12/17/2024 6:58 AM EST) Triglycerides 58 <150 mg/dL [facility] Comment:Desirable Triglyceri de: less than 150 mg/dLBorderline High Triglyceride 150-199 mg/dLHigh Triglyceride: 200-499 mg/dLVery High Triglyceride: greater than or equal to 5OO mg/dL Cholesterol 106 <200 mg/dL [facility] Comment:Desirable Cholestero l: less than 200 mg/dLBorderline High Cholesterol: 200-239 mg/dLHigh Cholesterol: greater than 239 mg/dL LDL Cholesterol Calculated 45 <100 mg/dL [facility] Comment:Desirable LDL: less than 100 mg/dLNear Optimal/Above Optimal LDL: 110- 129 mg/dLBorderline High LDL: 130-159 mg/dLHigh LDL: 160-189 mg/dLVery High LDL: greater than or equal to 190 mg/dL HDL Cholesterol 50 >40 mg/dL [facility] Comment:Desirable HDL: great er than 40 mg/dL Note: This HDL assay may give artificially low results in patients with liver disease. 12/17/2024 6:58 AM EST 12/17/2024 6:58 AM EST [facility] LAB BLOOD ORDERABLES Final Resul t [facility] [address] [place] [phone] [phone] * Albumin, Random Urine W/Creatinine (10/12/2024 9:52 AM EST) Creatinine, Urine 41.64 mg/dL [facility] Microalbumin Urine 6.0 mg/L [facility] Microalbum Creatinine Ratio Ur 14.4 <30 ug/mg cr [facility] Comment:Albumin/Creatinine R atio Reference Ranges: Normal: < 30 ug/mg creatinine Microalbuminuria: 30 - 300 ug/mg creatinineClinical Albuminuria: > 300 ug/mg creatinine Urine (Urine, Random) 10/12/2024 9:52 AM EST 10/12/2024 10:49 AM EST us Neil [facility] URINE ORDERABLES Final Resul t [facility] [address] [place] [address] [phone] from Last 3 Months or Most Recently Relevant to Health Maintenance Insurance C3 [facility] MEDICAID STAND ADULT * Guarantor: Joelle Myers I Account Type Relation to Patient Date of Phone Billing Address Personal/Family Self [address] Care Teams Senior It Architect Relationship Specialty Start Date End Date Neil Bernard ANP [address] [place] [address] PCP - General Family Medicine 07/07/20 Vaishali Minor PharmD [address] [place] [address] Pharmacist Internal Medicine 10/29/24 Clarence Perkins Machine Rope MakerMetalizing Machine Operator Automatic 06/24/25
--- OUTSIDE RECORDS SUMMARY | 2025-08-26 20:29 | XMS_ITS | Encounter Summary ---
Author Organization [employer] Address 75 [facility] 7t [place] [address] Care Team Providers Care Manager Gallery Name Role Phone Sepideh Hopkins JAVI Primary Care Provider [phone] Vaishali Minor PharmD Unavailable Reason for Visit * Reason Onset Date Comments Appointment 12/08/2022 Patient called i n inquiring about RCT appt with Pasquale. Encounter Details Date Type Department Care Team ([facility] Contact Info) Description 12/08/2022 Telephone [facility] CHC ADULT DENTAL [address] [place], [place] [phone] Gregorio Giordano, ANNIES 505 [place], [place] [phone] Appointment (Patient called in inquiring about RCT [...] Description 08/30/2025 10:30 AM EDT Clinical Support [facility] MEDICINE [address] [place] [address] Shanelle Miller, MENDEL 505 [place] [address] 09/23/2025 11:00 AM EST Medication Management [address] [address] Vaishali Minor PharmD [address] [place] [address] 10/01/2025 9:15 AM EST Office Visit [facility] MEDICINE [address] [place] [address] Sepideh Hopkins ANP [address] [place] [address] 01/02/2026 10:00 AM EST Office Visit [facility] ADULT DENTAL [address] [place] [address] Linsey Dawkins documented as of this encounter Visit Diagnoses Not on filedocumented in this encounter Care Teams Manager Gallery Relationship Specialty Start Date End Date Sepideh Hopkins ANP [address] [place] [address] PCP - General Family Medicine 07/07/20 Vaishali Minor PharmD [address] [place] [address] Pharmacist Internal Medicine 10/29/24 Clarence Perkins Azure Principal Solution SpecialistApartment Leasing Manager 06/24/25 documented as of this encounter
--- OUTSIDE RECORDS SUMMARY | 2025-08-26 20:29 | XMS_ITS | Encounter Summary ---
Author Organization [employer] Address 75 [facility] 7t [place] [address] Care Team Providers Care Biochemistry Specialist Name Role Phone Sepideh Hopkins Primary Care Provider [phone] Vaishali Minor PharmD Unavailable [phone] Reason for Visit * Reason Comments Med Refill Encounter Details Date Type Department Care Team ([facility] st Contact Info) Description 02/27/2024 Refill [facility] MEDICINE [address] [place], [place] [phone] Sepideh Hopkins ANP 230 [place] [address] Social History Tobacco Use Types Packs/Day Years [...] Description 08/30/2025 10:30 AM EDT Clinical Support [facility] MEDICINE [address] [place] [address] Shanelle Miller RN 505 [place] [address] 09/23/2025 11:00 AM EST Medication Management [facility] MEDICINE [address] [place] [address] Vaishali Minor PharmD [address] [place] [address] 10/01/2025 9:15 AM EST Office Visit [facility] MEDICINE [address] [place] [address] Sepideh Hopkins ANP [address] [place] [address] 01/02/2026 10:00 AM EST Office Visit [facility] ADULT DENTAL [address] [place] [address] Linsey Dawkins documented as of this encounter Visit Diagnoses Not on filedocumented in this encounter Care Teams Biochemistry Specialist Relationship Specialty Start Date End Date Sepideh Hopkins ANP [address] [place] [address] PCP - General Family Medicine 07/07/20 Vaishali Minor PharmD [address] [place] [address] Pharmacist Internal Medicine 10/29/24 Clarence Perkins Signaling Design EngineerRamp Service Agent 06/24/25 documented as of this encounter
--- OUTSIDE RECORDS SUMMARY | 2025-08-26 20:29 | XMS_ITS | Encounter Summary ---
Author Organization [employer] Address 75 [facility] 7t [place] [address] Care Team Providers Care Coater Hand Name Role Phone Sepideh Hopkins Primary Care Provider [phone] Vaishali Minor PharmD Unavailable Reason for Visit * Reason Comments Med Refill Encounter Details Date Type Department Care Team ([facility] st Contact Info) Description 05/23/2025 Refill [facility] MEDICINE [address] [place], [place] [phone] Sepideh Hopkins ANP 230 [place] [address] History of pulmonary embolism; Diabetic polyneuropathy associated [...] Description 08/30/2025 10:30 AM EDT Clinical Support [facility] MEDICINE [address] [place] [address] Shanelle Miller RN 505 [place] [address] 09/23/2025 11:00 AM EST Medication Management [facility] MEDICINE [address] [place] [address] Vaishali Minor, PharmD [address] [place] [address] 10/01/2025 9:15 AM EST Office Visit [facility] MEDICINE [address] [place] [address] Sepideh Hopkins ANP 230 [place] [address] 01/02/2026 10:00 AM EST Office Visit [facility] ADULT DENTAL [address] [place] [address] Linsey Dawkins documented as of this encounter Visit Diagnoses Diagnosis History of pulmonary embolism Personal history of venous thrombosis and embolism Diabetic polyneuropathy associated with type 2 diabetes mellitus (HCC) documented in this encounter Additional Health Concerns Assessment Noted Time PHQ-9 Depression Total Score: 5 11/23/19 25 1:05 PM EST documented as of this encounter Care Teams Coater Hand Relationship Specialty Start Date End Date Sepideh Hopkins ANP 230 [place] [address] PCP - General Family Medicine 07/07/20 Vaishali Minor PharmD 230 [place] [address] Pharmacist Internal Medicine 10/29/24 Clarence Perkins Game ModeratorPowder Nipper 06/24/25 documented as of this encounter
--- OUTSIDE RECORDS SUMMARY | 2025-08-26 20:29 | XMS_ITS | Encounter Summary ---
Author Organization [employer] Address 75 [facility] 7t [place] [address] Care Team Providers Care Professor Of Oceanography Name Role Phone Sepideh Hopkins Primary Care Provider [phone] Vaishali Minor PharmD Unavailable Reason for Visit * Reason Comments Med Refill Encounter Details Date Type Department Care Team ([facility] Contact Info) Description 01/05/2023 Refill [facility] MEDICINE 230 [place] [address] Sepideh Hopkins ANP 230 [place] [address] Social History Tobacco Use Types Packs/Day Years [...] Upcoming Encounters Date Type Department Care Team ([facility] Contact Info) Description 08/30/2025 10:30 AM EDT Clinical Support [facility] MEDICINE 230 [place] [address] Shanelle Miller RN 505 [place] [address] 09/23/2025 11:00 AM EST Medication Management [facility] MEDICINE [address] [place] [address] Vaishali Minor PharmD [address] [place] [address] 10/01/2025 9:15 AM EST Office Visit [facility] MEDICINE [address] [place] [address] Sepideh Hopkins ANP [address] [place] [address] 01/02/2026 10:00 AM EST Office Visit [facility] ADULT DENTAL [address] [place] [address] Linsey Dawkins documented as of this encounter Visit Diagnoses Not on filedocumented in this encounter Care Teams Professor Of Oceanography Relationship Specialty Start Date End Date Sepideh Hopkins ANP [address] [place] [address] PCP - General Family Medicine 07/07/20 Vaishali Minor, Leonidas [address] [place] [address] Pharmacist Internal Medicine 10/29/24 Clarence Perkins Automatic Log Cut Off SawyerDrilling Supervisor 06/24/25 documented as of this encounter
--- OUTSIDE RECORDS SUMMARY | 2025-08-26 20:29 | XMS_ITS | Encounter Summary ---
Author Organization [employer] Address 75 [facility] 7t [place] [address] Care Team Providers Care Soldering Machine Operator Automatic Name Role Phone Sepideh Hopkins Primary Care Provider [phone] Vaishali Minor PharmD Unavailable [phone] Reason for Visit * Reason Comments Med Refill Encounter Details Date Type Department Care Team ([facility] st Contact Info) Description 06/22/2024 Refill [facility] MEDICINE 230 [place], [place] [phone] Sepideh Hopkins ANP [address] [place] [address] Social History Tobacco Use Types Packs/Day Years [...] Description 08/30/2025 10:30 AM EDT Clinical Support [facility] MEDICINE [address] [place] [address] Shanelle Miller RN 505 [place] [address] 09/23/2025 11:00 AM EST Medication Management [facility] MEDICINE [address] [place] [address] Vaishali Minor PharmD [address] [place] [address] 10/01/2025 9:15 AM EST Office Visit [facility] MEDICINE [address] [place] [address] Sepideh Hopkins ANP [address] [place] [address] 01/02/2026 10:00 AM EST Office Visit [facility] ADULT DENTAL [address] [place] [address] Linsey Dawkins documented as of this encounter Visit Diagnoses Not on filedocumented in this encounter Care Teams Soldering Machine Operator Automatic Relationship Specialty Start Date End Date Sepideh Hopkins ANP [address] [place] [address] PCP - General Family Medicine 07/07/20 Vaishali Minor PharmD [address] [place] [address] Pharmacist Internal Medicine 10/29/24 Clarence Perkins Roll CutterContinuity Editor 06/24/25 documented as of this encounter
--- OUTSIDE RECORDS SUMMARY | 2025-08-26 20:29 | XMS_ITS | Encounter Summary ---
Author Organization [employer] Address 75 [facility] 7t [place] [address] Care Team Providers Care Pipeline Integrity Engineer Name Role Phone Sepideh Hopkins ANP Primary Care Provider [phone] Vaishali Minor PharmD Unavailable Encounter Details Date Type Department Care Team (Late Contact Info) Description 10/03/2023 Orders Only [facility] MEDICINE [address] [place] [address] Sepideh Hopkins ANP [address] [place] [address] Social History Tobacco Use Types Packs/Day Years [...] Description 08/30/2025 10:30 AM EDT Clinical Support [address] [address] Shanelle Miller RN 505 [place] [address] 09/23/2025 11:00 AM EST Medication Management [facility] MEDICINE [address] [place] [address] Vaishali Minor, PharmD [address] [place] [address] 10/01/2025 9:15 AM EST Office Visit [facility] MEDICINE [address] [place] [address] Sepideh Hopkins ANP 230 [place], [place] [phone] 01/02/2026 10:00 AM EST Office Visit [facility] ADULT DENTAL [address] [place] [address] [phone] Linsey Dawkins documented as of this encounter Visit Diagnoses Not on filedocumented in this encounter Care Teams Pipeline Integrity Engineer Relationship Specialty Start Date End Date Sepideh Hopkins ANP [address] [place] [address] PCP - General Family Medicine 07/07/20 Vaishali Minor PharmD [address] [place] [address] Pharmacist Internal Medicine 10/29/24 Clarence Perkins Dredge Pipe OperatorLetter Carrier 06/24/25 documented as of this encounter
--- OUTSIDE RECORDS SUMMARY | 2025-08-26 20:29 | XMS_ITS | Encounter Summary ---
Author Organization [employer] Address 75 [facility] 7t [place] [address] Care Team Providers Care Assignment Officer Name Role Phone Sepideh Hopkins JAVI Primary Care Provider [phone] Vaishali iMnor PharmD Unavailable Reason for Visit * Reason Onset Date Comments Dr. Angeles case delivery 07/03/2025 Encounter Details Date Type Department Care Team ([facility] st Contact Info) Description 07/03/2025 Telephone [facility] ADULT DENTAL [address] [place] [address] Everett Angeles, DMD [address] [place] [address] Dr. Angeles case delivery Social History Tobacco [...] Angeles was not in office yesterday therefore javascript front end developer is waiting to see him today to confirm how provider would likke to schedule patient. service desk team lead will reach out to patient to schedule. documented in this encounter Plan of Treatment Upcoming Encounters Date Type Department Care Team (Late st Contact Info) Description 08/30/2025 10:30 AM EDT Clinical Support [facility] MEDICINE [address] [place] [address] Shanelle Miller RN 505 [place] [address] 09/23/2025 11:00 AM EST Medication Management [facility] MEDICINE [address] [place] [address] Vaishali Minor, PharmD 230 [place] [address] 10/01/2025 9:15 AM EST Office Visit [facility] MEDICINE [address] [place] [address] Sepideh Hopkins ANP 230 [place] [address] 01/02/2026 10:00 AM EST Office Visit [facility] ADULT DENTAL [address] [place], [place] [phone] Linsey Dawkins documented as of this encounter Visit Diagnoses Not on filedocumented in this encounter Additional Health Concerns Assessment Noted Time PHQ-9 Depression Total Score: 5 11/23/19 25 1:05 PM EST documented as of this encounter Care Teams Assignment Officer Relationship Specialty Start Date End Date Sepideh Hopkins ANP [address] [place] [address] PCP - General Family Medicine 07/07/20 Vaishali Minor, IrwinD [address] [place] [address] Pharmacist Internal Medicine 10/29/24 Clarence Perkins Financial Analyst AccountantTube Winder Hand 06/24/25 documented as of this encounter
--- OUTSIDE RECORDS SUMMARY | 2025-08-26 20:29 | XMS_ITS | Encounter Summary ---
Author Organization [employer] Address 75 [facility] 7t [place] [address] Care Team Providers Care Physical Laboratory Assistant Name Role Phone Sepideh Hopkins Primary Care Provider [phone] Vaishali Minor PharmD Unavailable Reason for Visit * Reason Comments Med Refill Encounter Details Date Type Department Care Team ([facility] st Contact Info) Description 06/27/2025 Refill [facility] CHC MED & PEDS [address] [place], [place] [phone] Sepideh Hopkins ANP 230 [facility] [place] [address] Chronic bilateral low back pain without sciatica [...] Description 08/30/2025 10:30 AM EDT Clinical Support [facility] MEDICINE [address] [place] [address] Shanelle Miller, RN 505 [place] [address] 09/23/2025 11:00 AM EST Medication Management [facility] MEDICINE [address] [place] [address] Vaishali Minor, PharmD [address] [place] [address] 10/01/2025 9:15 AM EST Office Visit [facility] MEDICINE [address] [place] [address] Sepideh Hopkins ANP [address] [place] [address] 01/02/2026 10:00 AM EST Office Visit [facility] ADULT DENTAL [address] [place] [address] Linsey Dawkins documented as of this encounter Visit Diagnoses Diagnosis Chronic bilateral low back pain without sciatica documented in this encounter Additional Health Concerns Assessment Noted Time PHQ-9 Depression Total Score: 5 11/23/19 25 1:05 PM EST documented as of this encounter Care Teams Physical Laboratory Assistant Relationship Specialty Start Date End Date Sepideh Hopkins ANP 230 [place] [address] PCP - General Family Medicine 07/07/20 Vaishali Minor PharmD 230 [place] [address] Pharmacist Internal Medicine 10/29/24 Clarence Perkins Manager StyleLace Machine Operator 06/24/25 documented as of this encounter
--- OUTSIDE RECORDS SUMMARY | 2025-08-26 20:29 | XMS_ITS | Encounter Summary ---
Author Organization [employer] Address 75 [facility] 7t [place] [address] Care Team Providers Care Superintendent Meter Tests Name Role Phone Sepideh Hopkins Primary Care Provider [phone] Vaishali Minor PharmD Unavailable [phone] Encounter Details Date Type Department Care Team ([facility] st Contact Info) Description 07/19/2025 Results Follow-Up [facility] MEDICINE 230 [place] [address] Sepideh Hopkins ANP 230 [place] [address] Culture, Urine, Routine Social History Tobacco Use [...] Description 08/30/2025 10:30 AM EDT Clinical Support [address] [address] Shanelle Miller RN 505 [place] [address] 09/23/2025 11:00 AM EST Medication Management [address] [address] Vaishali Minor, PharmD [address] [place] [address] 10/01/2025 9:15 AM EST Office Visit [address] [address] Sepideh Hopkins ANP [address] [place] [address] 01/02/2026 10:00 AM EST Office Visit [facility] ADULT DENTAL 230 [place] [address] Linsey Dawkins documented as of this encounter Visit Diagnoses Not on filedocumented in this encounter Additional Health Concerns Assessment Noted Time PHQ-9 Depression Total Score: 5 11/23/19 25 1:05 PM EST documented as of this encounter Care Teams Superintendent Meter Tests Relationship Specialty Start Date End Date Sepideh Hopkins ANP [address] [place] [address] PCP - General Family Medicine 07/07/20 Vaishali Minor PharmD [address] [place] [address] Pharmacist Internal Medicine 10/29/24 Clarence Perkins Pouring Crane OperatorCard Checker 06/24/25 documented as of this encounter
== END 2025-08-26 17:53 | disposition left against medical advice (07) ==
PROVIDERS: Emergency Provider Emergency Medicine
DX: M79.602 Pain in left arm (principal); F17.200 Nicotine dependence, unspecified, uncomplicated; I10 Essential (primary) hypertension; E11.9 Type 2 diabetes mellitus without complications; Z79.899 Other long term (current) drug therapy; Z71.6 Tobacco abuse counseling
CPT/HCPCS: 99281

== ENCOUNTER 2025-09-11 09:55 | Outpatient (AMB) | payer MEDICAID, SELFPAY ==
[2025-09-11 10:20] VITALS: BP 122/68; PULSE 76; BMI 28.7
--- NOTE | 2025-09-11 10:20 | A.OFFVIS_ITS ---
Vital Signs 09/11/25 10:20 Height 5 ft 1 in Weight 152 lb 1.903 oz BMI 28.7 BP 122/68 Blood Pressure Location Lt brachial Position Sitting Pulse 76 Pulse Source Pulse Oximeter Intake Visit Reasons: follow up echo Almond Pan Finisher Required: Yes Almond Pan Finisher Name: YARIEL [id number] Allergies No Known Allergies Allergy (Verified 08/26/25 10:40) Medication List - Last Reconciled 09/11/25 by Rashid Recinos MD acarbose 100 mg PO TID acetaminophen 1,000 mg PO Q6H PRN albuterol sulfate 2.5 mg inhalation Q6H PRN apixaban (Eliquis) 2.5 mg PO BID atorvastatin 40 mg PO BEDTIME blood sugar diagnostic (FreeStyle Lite Strips) 4 times a day blood-glucose meter (FreeStyle Lite Meter kit) use as directed TID blood-glucose meter (FreeStyle [place] Lite kit) To test bg 3x/day budesonide-formoterol 160-4.5 mcg/actuation 2 puffs inhalation BID bupropion HCl SR 100 mg PO DAILY cetirizine 10 mg PO DAILY cholecalciferol (vitamin D3) 50 mcg PO DAILY docusate sodium (Colace) 100 mg PO DAILY esomeprazole magnesium (Nexium) 40 mg PO DAILY famotidine 40 mg PO BEDTIME fenofibrate micronized 134 mg PO DAILY flash glucose sensor (FreeStyle Dagmar 2 Sensor kit) As directed fluticasone propionate 50 mcg/actuation 1 spray intranasal BID FreeStyle Lancets (lancets) 3 times a day NS gabapentin 600 mg PO TID insulin glargine (Lantus Solostar U-100 Insulin) 30 units subcut DAILY lidocaine 5% 1 patch topical DAILY lorazepam 0.5 mg PO BID PRN magnesium oxide 400 mg PO DAILY metformin ER 500 mg PO BID metoprolol succinate ER (Toprol XL) 50 mg PO BID nitroglycerin 0.3 mg sublingual Q5M PRN 10 days pen needle, diabetic (BD Ultra-Fine Sienna Pen Needle) four times a day semaglutide (Ozempic) 2 mg subcut FR sertraline (Zoloft) 200 mg PO BEDTIME tiotropium bromide (Spiriva with HandiHaler) 1 cap inhalation DAILY tramadol 50 mg PO Q8H PRN zolpidem 10 mg PO BEDTIME PRN HPI Comments Details: Joelle returns for follow-up regarding coronary artery disease. She has a history of CAD and prior LAD stent. By documentation, around 2012. She did have another catheterization in October 2013 for suspected unstable angina. Based on that study, patent mid LAD stent, but otherwise normal coronaries. She has got multiple cardiovascular risk factors including type 2 diabetes, hyperten [place], dyslipidemia. She has been having some left arm discomfort of uncertain etiology. She even had a recent stress test which did not show any ischemic findings and the reason for left arm discomfort is not entirely clear. Otherwise, she feels fine. Discussed with patient using mirror installer. 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 Mother Hx of colon cancer, stage I Hx of diabetes insipidus Social History Household Members: None Housing: Apartment Are you a primary adult daycare coordinator to a significant other at home: No Do you presently have visiting nurse or other home services: Yes (deck mechanic) 75 years or older and lives alone: No Alcohol intake: never Patient Tobacco Use Status: Current everyday Tobacco user Tobacco use type: Cigarette Years Smoked: (onset 19yo, 1ppd x 42yrs, 40pyh - quit 2021) e-Cigarette/Vaping Use: Never Used Second Hand Smoke Exposure: No service: No Review of Systems Const Denies weakness ENT Denies dizziness Card Denies chest pain, Denies chest pain with activity, Denies syncope, Denies rapid heart rate, Denies pedal edema, Denies edema, Denies leg edema, Denies lightheadedness, Denies palpitations, Denies dyspnea, Denies dyspnea on exertion and Denies orthopnea Resp Denies cough, Denies dyspnea and Denies dyspnea on exertion GI Denies hematochezia and Denies change in stool character Musc Denies abnormal gait, Denies muscle cramps, Denies muscle weakness, Denies numbness, Denies radiating pain into limb and Denies tingling Neuro Denies abnormal gait, Denies dizziness, Denies syncope, Denies numbness, Denies tingling and Denies weakness Endo Denies palpitations Physical Exam Vital Signs: Last Vital Signs Pulse 76 09/11/25 10:20 BP 122/68 09/11/25 10:20 BMI result Body Mass Index 28.7 Const General: comfortable and no acute distress Orientation/consciousness: patient oriented x3 HEENT Other: Unremarkable Head: Yes normal to inspection Neck Neck: Yes normal visual inspection Chest Chest palpation & inspection: normal inspection of the chest Resp Auscultation: clear to auscultation bilaterally Cardio Palpation: normal PMI Heart sounds: S1 normal heart sound present, S2 normal heart sound present, no gallops, no murmurs and no rubs GI Palpation (GI): Soft to palpation Back/Spine/Pelvis Other: unremarkable Skin General skin exam: no rashes or lesions noted Neuro General: patient oriented x3 Extrem General: Yes normal to inspection Psych Mental Status: mental status grossly normal Assessment & Plan Assessment & Plan (1) CAD (coronary artery disease): Code(s): I25.10 - Atherosclerotic heart disease of [place] coronary artery without angina pectoris Category: Medical Qualifiers: Associated angina: with unspecified form of angina Coronary Disease- Associated Artery/Lesion type: [place] artery (2) Stented coronary artery: Onset Date: ~2012 Comment: (LAD stent 2012) Code(s): Z95.5 - Presence of coronary angioplasty implant and graft Category: Medical (3) Diabetes type 2, uncontrolled: Onset Date: ~2011 Code(s): E11.65 - Type 2 diabetes mellitus with hyperglycemia Category: Medical (4) Hypertension: Code(s): I10 - Essential (primary) hypertension Category: Medical (5) Dyslipidemia: Code(s): E78.5 - Hyperlipidemia, unspecified Category: Medical Plan Cardiac studies reviewed. Last cardiac catheterization from October 2013 reported to have patent mid LAD stent but otherwise normal coronary arteries. In the recent echocardiogram, LVEF is 50-55%. Wall motion abnormalities could not be excluded due to suboptimal image quality. Otherwise unremarkable. Recent myocardial perfusion imaging study was reported normal. Carotid ultrasound shows no significant stenosis. She continue meds for stable coronary disease. Remains on aspirin and high-dose statins. Last LDL cholesterol 45 mg/dL and triglycerides 58 mg/dL. Diabetic regimen noted. Most recent random sugar is 261. No recent hemoglobin A1c. Eliquis seems to be for pulmonary embolism. Otherwise, no changes made. Coding Level of Care Code Est Pt Level 4 (86173) Complex EM visit Add On G2211 Diagnoses CAD (coronary artery disease) I25.10 Associated angina: with unspecified form of angina Coronary Disease-Associated Artery/Lesion type: [place] artery Stented coronary artery Z95.5 Diabetes type 2, uncontrolled E11.65 Hypertension I10 Dyslipidemia E78.5
--- OUTSIDE RECORDS SUMMARY | 2025-09-11 11:17 | XMS_ITS | Encounter Summary ---
Author Organization [employer] Address [address] [facility] 7t [place] [address] Care Team Providers Care Returns Processor Name Role Phone Sepideh Hopkins Primary Care Provider [phone] Vaishali Minor PharmD Unavailable [phone] Encounter Details Date Type Department Care Team ([facility] st Contact Info) Description 07/19/2025 Results Follow-Up [facility] MEDICINE [address] [place] [address] Sepideh Hopkins ANP [address] [place] [address] Culture, Urine, Routine Social History Tobacco Use [...] Care Team (Late st Contact Info) Description 09/23/2025 11:00 AM EST Medication Management [facility] MEDICINE [address] [place] [address] Vaishali Minor, PharmD [address] [place] [address] 10/01/2025 9:15 AM EST Office Visit [facility] MEDICINE [address] [place] [address] Sepideh Hopkins ANP [address] [place] [address] 11/18/2025 11:00 AM EST Telemedicine [facility] CHC MED & PEDS [address] [place] [address] Shanelle Miller, RN [address] [place] [address] 01/02/2026 10:00 AM EST Office Visit [facility] ADULT DENTAL [address] [place] [address] Linsey Dawkins documented as of this encounter Visit Diagnoses Not on filedocumented in this encounter Additional Health Concerns Assessment Noted Time PHQ-9 Depression Total Score: 5 11/23/19 25 1:05 PM EST documented as of this encounter Care Teams Returns Processor Relationship Specialty Start Date End Date Sepideh Hopkins ANP [address] [place] [address] PCP - General Family Medicine 07/07/20 Vaishali Minor, Leonidas [address] [place] [address] Pharmacist Internal Medicine 10/29/24 Clarence Perkins Cisco AdministratorMold Yard Worker 06/24/25 documented as of this encounter
--- OUTSIDE RECORDS SUMMARY | 2025-09-11 11:17 | XMS_ITS | Encounter Summary ---
Author Organization [employer] Address [address] [facility] 7t [place] [address] Care Team Providers Care Poacher Operator Name Role Phone Sepideh Hopkins Primary Care Provider [phone] Vaishali Minor PharmD Unavailable [phone] Reason for Visit * Reason Comments Med Refill Encounter Details Date Type Department Care Team ([facility] st Contact Info) Description 02/27/2024 Refill [facility] MEDICINE [address] [place], [place] [phone] Sepideh Hopkins ANP [address] [place] [address] Social History Tobacco Use Types Packs/Day Years [...] Description 09/23/2025 11:00 AM EST Medication Management [facility] MEDICINE [address] [place] [address] Vaishali Minor PharmD [address] [place] [address] 10/01/2025 9:15 AM EST Office Visit [facility] MEDICINE [address] [place] [address] Sepideh Hopkins ANP [address] [place] [address] 11/18/2025 11:00 AM EST Telemedicine [facility] CHC MED & PEDS [address] [place] [address] Shanelle Miller, MENDEL [address] [place] [address] 01/02/2026 10:00 AM EST Office Visit [facility] ADULT DENTAL [address] [place] [address] Linsey Dawkins documented as of this encounter Visit Diagnoses Not on filedocumented in this encounter Care Teams Poacher Operator Relationship Specialty Start Date End Date Sepideh Hopkins ANP [address] [place] [address] PCP - General Family Medicine 07/07/20 Vaishali Minor PharmD [address] [place] [address] Pharmacist Internal Medicine 10/29/24 Clarence Perkins Child Development ProfessorSales Department Supervisor 06/24/25 documented as of this encounter
--- OUTSIDE RECORDS SUMMARY | 2025-09-11 11:17 | XMS_ITS | Encounter Summary ---
Author Organization [employer] Address [address] [facility] 7t [place] [address] Care Team Providers Care City Editor Name Role Phone Sepideh Hopkins Primary Care Provider [phone] Vaishali Minor PharmD Unavailable Reason for Visit * Reason Comments Med Refill Encounter Details Date Type Department Care Team (Late st Contact Info) Description 06/16/2023 Refill [facility] MEDICINE [address] [place] [phone] Tisha Cornelius FNP Social History Tobacco Use [...] Description 09/23/2025 11:00 AM EST Medication Management [facility] MEDICINE [address] [place] [address] Vaishali Minor, PharmD [address] [place] [address] 10/01/2025 9:15 AM EST Office Visit [facility] MEDICINE [address] [place] [address] Sepideh Hopkins ANP [address] [place] [address] 11/18/2025 11:00 AM EST Telemedicine [facility] CHC MED & PEDS [address] [place] [address] Shanelle Miller, RN 505 [place] [address] 01/02/2026 10:00 AM EST Office Visit [facility] ADULT DENTAL [address] [place] [address] Linsey Dawkins documented as of this encounter Visit Diagnoses Not on filedocumented in this encounter Care Teams City Editor Relationship Specialty Start Date End Date Sepideh Hopkins ANP [address] [place] [address] PCP - General Family Medicine 07/07/20 Vaishali Minor PharmD [address] [place] [address] Pharmacist Internal Medicine 10/29/24 Clarence Perkins Type Soldering Machine TenderFruit Distributor 06/24/25 documented as of this encounter
--- OUTSIDE RECORDS SUMMARY | 2025-09-11 11:17 | XMS_ITS | Encounter Summary ---
Author Organization [email or web address] Address [address] [facility] 7t [place] [address] Care Team Providers Care Nut Roaster Name Role Phone Sepideh Hopkins JAVI Primary Care Provider [phone] Vaishali Minor PharmD Unavailable [phone] Encounter Details Date Type Department Care Team (Late st Contact Info) Description 01/10/2025 Orders Only [facility] CHC MED & PEDS [address] [place], [place] [phone] Provider, MD Jan Social History Tobacco Use [...] Upcoming Encounters Date Type Department Care Team ([facility] st Contact Info) Description 09/23/2025 11:00 AM EST Medication Management [facility] MEDICINE [address] [place] [address] Vaishali Minor, IrwinD [address] [place] [address] 10/01/2025 9:15 AM EST Office Visit [facility] MEDICINE [address] [place] [address] Sepideh Hopkins ANP [address] [place] [address] 11/18/2025 11:00 AM EST Telemedicine [facility] CHC MED & PEDS [address] [place] [address] Shanelle Miller, RN [address] [place] [address] 01/02/2026 10:00 AM EST Office Visit [facility] ADULT DENTAL [address] [place] [address] Linsey Dawkins documented as of this encounter [...] documented as of this encounter Care Teams Nut Roaster Relationship Specialty Start Date End Date Sepideh Hopkins ANP [address] [place] [address] PCP - General Family Medicine 07/07/20 Vaishali Minor PharmD [address] [place] [address] Pharmacist Internal Medicine 10/29/24 Clarence Perkins Tree KillerAir Transportation Provider 06/24/25 documented as of this encounter
--- OUTSIDE RECORDS SUMMARY | 2025-09-11 11:17 | XMS_ITS | Encounter Summary ---
Author Organization [employer] Address [address] [facility] 7t [place] [address] Care Team Providers Care Underground Distribution Engineer Name Role Phone Sepideh Hopkins Primary Care Provider [phone] Vaishali Minor PharmD Unavailable [phone] Reason for Visit * Reason Comments Med Refill Encounter Details Date Type Department Care Team ([facility] st Contact Info) Description 06/22/2024 Refill [facility] MEDICINE [address] [place], [place] [phone] Sepideh Hopkins ANP [address] [place] [address] Social History Tobacco Use Types Packs/Day Years [...] Description 09/23/2025 11:00 AM EST Medication Management [facility] MEDICINE [address] [place] [address] Vaishali Minor PharmD [address] [place] [address] 10/01/2025 9:15 AM EST Office Visit [facility] MEDICINE [address] [place] [address] Sepideh Hopkins ANP [address] [place] [address] 11/18/2025 11:00 AM EST Telemedicine [facility] CHC MED & PEDS [address] [place] [address] Shanelle Miller, MENDEL [address] [place] [address] 01/02/2026 10:00 AM EST Office Visit [facility] ADULT DENTAL [address] [place] [address] Linsey Dawkins documented as of this encounter Visit Diagnoses Not on filedocumented in this encounter Care Teams Underground Distribution Engineer Relationship Specialty Start Date End Date Sepideh Hopkins ANP [address] [place] [address] PCP - General Family Medicine 07/07/20 Vaishali Minor PharmD [address] [place] [address] Pharmacist Internal Medicine 10/29/24 Clarence Perkins Poolroom/Poolhall ManagerPowertrain Control Systems Engineer 06/24/25 documented as of this encounter
--- OUTSIDE RECORDS SUMMARY | 2025-09-11 11:17 | XMS_ITS | Encounter Summary ---
Author Organization [employer] Address [address] [facility] 7[address] [place] [address] Care Team Providers Care Landscape Foreman Name Role Phone Sepideh Hopkins Primary Care Provider [phone] Vaishali Minor PharmD Unavailable Reason for Visit * Reason Comments Med Refill Encounter Details Date Type Department Care Team ([facility] Contact Info) Description 01/05/2023 Refill [facility] MEDICINE [address] [place] [address] Sepideh Hopkins ANP [address] [place] [address] Social History Tobacco Use Types Packs/Day Years [...] Upcoming Encounters Date Type Department Care Team ([facility] Contact Info) Description 09/23/2025 11:00 AM EST Medication Management [facility] MEDICINE [address] [place] [address] Vaishali Minor, PharmD [address] [place] [address] 10/01/2025 9:15 AM EST Office Visit [facility] MEDICINE [address] [place] [address] Sepideh Hopkins ANP [address] [place] [address] 11/18/2025 11:00 AM EST Telemedicine [facility] CHC MED & PEDS [address] [place] [address] Shanelle Miller, RN [address] [place] [address] 01/02/2026 10:00 AM EST Office Visit [facility] ADULT DENTAL [address] [place] [phone] Linsey Dawkins documented as of this encounter Visit Diagnoses Not on filedocumented in this encounter Care Teams Landscape Foreman Relationship Specialty Start Date End Date Sepideh Hopkins ANP [address] [place] [address] PCP - General Family Medicine 07/07/20 Vaishali Minor PharmD [address] [place] [address] Pharmacist Internal Medicine 10/29/24 Clarence Perkins Pole Peeling Machine OperatorCvt Tech 06/24/25 documented as of this encounter
--- OUTSIDE RECORDS SUMMARY | 2025-09-11 11:17 | XMS_ITS | Encounter Summary ---
Author Organization [employer] Address [address] [facility] 7t [place] [address] Care Team Providers Care Daycare Assistant Name Role Phone Sepideh Hopkins Primary Care Provider [phone] Vaishali Minro PharmD Unavailable Reason for Visit * Reason Onset Date Comments Durable Medical Equipment 06/11/2025 Encounter Details Date Type Department Care Team ([facility] st Contact Info) Description 06/11/2025 Telephone [facility] MEDICINE [address] [place] [address] Sepideh Hopkins ANP [address] [place] [address] Durable Medical Equipment Social History Tobacco Use [...] 06/11/2025 10:28 AM EDT Tc from pt daycare assistant Clarence requesting status on walker discussed during office visit with PCP on 05/31. documented in this encounter Plan of Treatment Upcoming Encounters Date Type Department Care Team (Late st Contact Info) Description 09/23/2025 11:00 AM EST Medication Management [facility] MEDICINE [address] [place] [address] Vaishali Minor, PharmD [address] [place] [address] 10/01/2025 9:15 AM EST Office Visit [facility] [address] [place] [address] [place] [address] Sepideh Hopkins ANP [address] [place] [address] 11/18/2025 11:00 AM EST Telemedicine [facility] CHC MED & PEDS [address] [place] [address] Shanelle Miller, RN [address] [place] [address] 01/02/2026 10:00 AM EST Office Visit [facility] ADULT DENTAL [address] [place] [address] Linsey Dawkins documented as of this encounter Visit Diagnoses Not on filedocumented in this encounter Additional Health Concerns Assessment Noted Time PHQ-9 Depression Total Score: 5 11/23/19 25 1:05 PM EST documented as of this encounter Care Teams Daycare Assistant Relationship Specialty Start Date End Date Sepideh Hopkins ANP [address] [place] [address] PCP - General Family Medicine 07/07/20 Vaishali Minor, IrwinD [address] [place] [address] Pharmacist Internal Medicine 10/29/24 Clarence Perkins Recycle DriverForest Fire Management Officer 06/24/25 documented as of this encounter
--- OUTSIDE RECORDS SUMMARY | 2025-09-11 11:17 | XMS_ITS | Encounter Summary ---
Author Organization [employer] Address [address] [facility] 7t [place] [address] Care Team Providers Care Nursing Manager Name Role Phone Sepideh Hopkins Primary Care Provider [phone] Vaishali Minor PharmD Unavailable Reason for Visit * Reason Onset Date Comments Med Refill 09/05/2025 Encounter Details Date Type Department Care Team ([facility] st Contact Info) Description 09/05/2025 Telephone [facility] MEDICINE [address] [place] [address] Sepideh Hopkins ANP [address] [place] [address] Med Refill Social History Tobacco Use Types [...] encounter Miscellaneous Notes * Telephone Encounter - Sarahy Perdue - 09/05/2025 9:44 AM EDT TC from pt requesting medication refill. Medications needing refill : traMADol (Ultram) 50 MG tablet To be sent to: [facility] documented in this encounter Plan of Treatment Upcoming Encounters Date Type Department Care Team (Late st Contact Info) Description 09/23/2025 11:00 AM EST Medication Management [facility] MEDICINE [address] [place] [address] Vaishali Minor, PharmD [address] [place] [address] 10/01/2025 9:15 AM EST Office Visit [facility] MEDICINE [address] [place] [address] Sepideh Hopkins, ANP [address] [place] [address] 11/18/2025 11:00 AM EST Telemedicine [facility] CHC MED & PEDS [address] [place] [address] Shanelle Miller, RN [address] [place] [address] 01/02/2026 10:00 AM EST Office Visit [facility] ADULT DENTAL [address] [place] [address] Linsey Dawkins documented as of this encounter Visit Diagnoses Not on filedocumented in this encounter Additional Health Concerns Assessment Noted Time PHQ-9 Depression Total Score: 5 11/23/19 25 1:05 PM EST documented as of this encounter Care Teams Nursing Manager Relationship Specialty Start Date End Date Sepideh Hopkins ANP [address] [place] [address] PCP - General Family Medicine 07/07/20 Vaishali Minor PharmD [address] [place] [address] Pharmacist Internal Medicine 10/29/24 Clarence Perkins Marketing Graphics SpecialistIndependent Distributor 06/24/25 documented as of this encounter
--- OUTSIDE RECORDS SUMMARY | 2025-09-11 11:17 | XMS_ITS | Encounter Summary ---
Author Organization [employer] Address 75 [facility] 7t h Floor [place] [id number] Care Team Providers Care Morals Squad Police Officer Name Role Phone Sepideh Hopkins Primary Care Provider Vaishali Minor PharmD Unavailable Encounter Details Date Type Department Care Team (Late st Contact Info) Description 10/03/2023 Orders Only [facility] MEDICINE [address] [place] [phone] Sepideh Hopkins ANP 230 [place] [address] Social History Tobacco Use Types Packs/Day Years [...] Description 09/23/2025 11:00 AM EST Medication Management [facility] [address] [place] [phone] Vaishali Minor, PharmD 230 [place] [address] 10/01/2025 9:15 AM EST Office Visit [facility] [address] [place] [address] [phone] Sepideh Hopkins ANP 230 [place] [address] 11/18/2025 11:00 AM EST Telemedicine [facility] CHC MED & PEDS [address] [place] [address] Shanelle Miller, RN 505 [place] [address] 01/02/2026 10:00 AM EST Office Visit [facility] ADULT DENTAL 230 [place] [address] Linsey Dawkins documented as of this encounter Visit Diagnoses Not on filedocumented in this encounter Care Teams Morals Squad Police Officer Relationship Specialty Start Date End Date Sepideh Hopkins ANP [address] [place] [address] PCP - General Family Medicine 07/07/20 Vaishali Minor PharmD [address] [place] [address] Pharmacist Internal Medicine 10/29/24 Clarence Perkins Travel ClerkData Deliverables Manager 06/24/25 documented as of this encounter
--- OUTSIDE RECORDS SUMMARY | 2025-09-11 11:17 | XMS_ITS | Encounter Summary ---
Author Organization [employer] Address 75 [facility] 7t [place] [address] Care Team Providers Care Payroll Lead Name Role Phone Sepideh Hopkins Primary Care Provider [phone] Vaishali Minor PharmD Unavailable Reason for Visit * Reason Comments Med Refill Encounter Details Date Type Department Care Team ([facility] st Contact Info) Description 06/27/2025 Refill [facility] MED & PEDS [address] [place], [place] [phone] Sepideh Hopkins ANP [address] [facility] [place] [address] Chronic bilateral low back pain without sciatica [...] 11:00 AM EST Medication Management [facility] [address] [place] [phone] Vaishali Minor, PharmD [address] [place] [address] 10/01/2025 9:15 AM EST Office Visit [facility] [address] [place] [phone] Sepideh Hopkins ANP 230 [place] [address] 11/18/2025 11:00 AM EST Telemedicine [facility] PEDS 505 [place] [address] Shanelle Miller, MENDEL 505 [place] [address] 01/02/2026 10:00 AM EST Office Visit [facility] ADULT DENTAL [address] [place] [phone] Linsey Dawkins documented as of this encounter Visit Diagnoses Diagnosis Chronic bilateral low back pain without sciatica documented in this encounter Additional Health Concerns Assessment Noted Time PHQ-9 Depression Total Score: 5 11/23/19 25 1:05 PM EST documented as of this encounter Care Teams Payroll Lead Relationship Specialty Start Date End Date Sepideh Hopkins ANP 230 [place] [address] PCP - General Family Medicine 07/07/20 Vaishali Minor PharmD 230 [place] [address] Pharmacist Internal Medicine 10/29/24 Clarence Perkins Rubber Boots And Shoes RepairerSpinning Lathe Operator Hydraulic 06/24/25 documented as of this encounter
--- OUTSIDE RECORDS SUMMARY | 2025-09-11 11:17 | XMS_ITS | Encounter Summary ---
Author Organization [employer] Address 75 [facility] 7t [place] [address] Care Team Providers Care Food Mixer Name Role Phone Sepideh Hopkins Primary Care Provider [phone] Vaishali Minor PharmD Unavailable Reason for Visit * Reason Comments Med Refill Encounter Details Date Type Department Care Team ([facility] st Contact Info) Description 05/23/2025 Refill [facility] MEDICINE [address] [place], [place] [phone] Sepideh Hopkins ANP [address] [place] [address] History of pulmonary embolism; Diabetic polyneuropathy associated [...] 11:00 AM EST Medication Management [facility] MEDICINE [address] [place] [phone] Vaishali Minor, IrwinD [address] [place] [address] 10/01/2025 9:15 AM EST Office Visit [facility] MEDICINE [address] [place] [address] Sepideh Hopkins, ANP [address] [place] [address] 11/18/2025 11:00 AM EST Telemedicine [facility] CHC MED & PEDS 505 [place] [address] Shanelle Miller, MENDEL [address] [place] [address] 01/02/2026 10:00 AM EST Office Visit [facility] ADULT DENTAL [address] [place] [address] Linsey Dawkins documented as of this encounter Visit Diagnoses Diagnosis History of pulmonary embolism Personal history of venous thrombosis and embolism Diabetic polyneuropathy associated with type 2 diabetes mellitus (HCC) documented in this encounter Additional Health Concerns Assessment Noted Time PHQ-9 Depression Total Score: 5 11/23/19 25 1:05 PM EST documented as of this encounter Care Teams Food Mixer Relationship Specialty Start Date End Date Sepideh Hopkins ANP [address] [place] [address] PCP - General Family Medicine 07/07/20 Vaishali Minor PharmD [address] [place] [address] Pharmacist Internal Medicine 10/29/24 Clarence Perkins Adzing And Boring Machine FeederBottle Line Worker 06/24/25 documented as of this encounter
--- OUTSIDE RECORDS SUMMARY | 2025-09-11 11:17 | XMS_ITS | Encounter Summary ---
Author Organization [employer] Address 75 [facility] 7t [place] [address] Care Team Providers Care Party Supply Specialist Name Role Phone Sepideh Hopkins JAVI Primary Care Provider [phone] Vaishali Minor PharmD Unavailable Reason for Visit * Reason Onset Date Comments Dr. Angeles case delivery 07/03/2025 Encounter Details Date Type Department Care Team ([facility] st Contact Info) Description 07/03/2025 Telephone [facility] ADULT DENTAL [address] [place] [address] Everett Angeles, DMD [address] [place] [address] Dr. Angeles case delivery Social History Tobacco [...] was not in office yesterday therefore front desk admin is waiting to see him today to confirm how provider would likke to schedule patient. help desk analyst will reach out to patient to schedule. documented in this encounter Plan of Treatment Upcoming Encounters Date Type Department Care Team (Late st Contact Info) Description 09/23/2025 11:00 AM EST Medication Management [facility] MEDICINE [address] [place] [phone] Vaishali Minor, PharmD [address] [place] [address] 10/01/2025 9:15 AM EST Office Visit [facility] MEDICINE [address] [place] [address] Sepideh Hopkins, ANP [address] [place] [address] 11/18/2025 11:00 AM EST Telemedicine [facility] CHC MED & PEDS 505 [place] [address] Shanelle Miller, RN [address] [place] [address] 01/02/2026 10:00 AM EST Office Visit [facility] ADULT DENTAL [address] [place] [address] Linsey Dawkins documented as of this encounter Visit Diagnoses Not on filedocumented in this encounter Additional Health Concerns Assessment Noted Time PHQ-9 Depression Total Score: 5 11/23/19 25 1:05 PM EST documented as of this encounter Care Teams Party Supply Specialist Relationship Specialty Start Date End Date Sepideh Hopkins ANP [address] [place] [address] PCP - General Family Medicine 07/07/20 Vaishali Minor, IrwinD [address] [place] [address] Pharmacist Internal Medicine 10/29/24 Clarence Perkins Wood Club Neck WhipperVp Corporate Development 06/24/25 documented as of this encounter
--- OUTSIDE RECORDS SUMMARY | 2025-09-11 11:17 | XMS_ITS | Encounter Summary ---
Author Organization [employer] Address 75 [facility] 7t [place] [address] Care Team Providers Care Twisting Frame Operator Name Role Phone Sepideh Hopkins Primary Care Provider [phone] Vaishali Minor PharmD Unavailable Reason for Visit * Reason Onset Date Comments Med Refill 08/05/2025 Encounter Details Date Type Department Care Team ([facility] st Contact Info) Description 08/05/2025 Telephone [facility] MEDICINE [address] [place] [address] Sepideh Hopkins ANP 230 [place] [address] Med Refill Social History Tobacco Use Types [...] 50 MG tablet To be sent to: [facility] - [place], [place] - [address] [place] [address] documented in this encounter Plan of Treatment Upcoming Encounters Date Type Department Care Team ([facility] st Contact Info) Description 09/23/2025 11:00 AM EST Medication Management [facility] MED[facility]INE [address] [place] [phone] Vaishali Minor, PharmD [address] [place] [address] 10/01/2025 9:15 AM EST Office Visit [facility] MED[facility]INE [address] [place] [phone] Sepideh Hopkins, ANP [address] [place] [address] 11/18/2025 11:00 AM EST Telemedicine [facility] MED [facility] PEDS 505 [place] [address] Shanelle Miller, RN 505 [place] [address] 01/02/2026 10:00 AM EST Office Visit [facility] ADULT DENTAL [address] [place] [address] Linsey Dawkins documented as of this encounter Visit Diagnoses Not on filedocumented in this encounter Additional Health Concerns Assessment Noted Time PHQ-9 Depression Total Score: 5 11/23/19 25 1:05 PM EST documented as of this encounter Care Teams Twisting Frame Operator Relationship Specialty Start Date End Date Sepideh Hopkins ANP 230 [place] [address] PCP - General Family Medicine 07/07/20 Vaishali Minor PharmD 230 [place] [address] Pharmacist Internal Medicine 10/29/24 Clarence Perkins Port PurserPlate Conditioner 06/24/25 documented as of this encounter
--- OUTSIDE RECORDS SUMMARY | 2025-09-11 11:17 | XMS_ITS | Encounter Summary ---
Author Organization [employer] Address 75 [facility] 7t [place] [address] Care Team Providers Care Placement Officer Name Role Phone Sepideh Hopkins Primary Care Provider [phone] Vaishali Minor PharmD Unavailable [phone] Encounter Details Date Type Department Care Team ([facility] st Contact Info) Description 05/02/2025 Orders Only [facility] MEDICINE [address] [place] [address] Sepideh Hopkins ANP [address] [place] [address] Social History Tobacco Use Types Packs/Day Years [...] Description 09/23/2025 11:00 AM EST Medication Management [facility] MEDICINE [address] [place] [address] Vaishali Minor, PharmD 230 [place] [address] 10/01/2025 9:15 AM EST Office Visit [facility] MEDICINE [address] [place] [phone] Sepideh Hopkins ANP [address] [place] [address] 11/18/2025 11:00 AM EST Telemedicine [facility] CHC MED & PEDS [address] [place] [address] Shanelle Miller, RN [address] [place] [address] 01/02/2026 10:00 AM EST Office Visit [facility] ADULT DENTAL [address] [place] [address] Linsey Dawkins documented as of this encounter Visit Diagnoses Not on filedocumented in this encounter Additional Health Concerns Assessment Noted Time PHQ-9 Depression Total Score: 5 01/17/20 25 1:05 PM EST documented as of this encounter Care Teams Placement Officer Relationship Specialty Start Date End Date Sepideh Hopkins ANP [address] [place] [address] PCP - General Family Medicine 07/07/20 Vaishali Minor PharmD [address] [place] [address] Pharmacist Internal Medicine 10/29/24 Clarence Perkins Warp Tying Machine TenderTensioning Machine Operator 06/24/25 documented as of this encounter
--- OUTSIDE RECORDS SUMMARY | 2025-09-11 11:17 | XMS_ITS | Encounter Summary ---
Author Organization [employer] Address [address] [facility] [address] [place] [address] Care Team Providers Care Geospatial Information Technologist Name Role Phone Sepideh Hopkins Primary Care Provider Vaishali Minor PharmD Unavailable Encounter Details Date Type Department Care Team (Late st Contact Info) Description 10/04/2022 Abstract [facility] ADULT DENTAL [address] [place] [address] Dental, Provider, DDS Social History Tobacco Use [...] Description 09/23/2025 11:00 AM EST Medication Management [facility] MEDICINE [address] [place] [address] Vaishali Minor, PharmD 230 [place] [address] 10/01/2025 9:15 AM EST Office Visit [facility] MEDICINE [address] [place] [address] Sepideh Hopkins ANP [address] [place] [address] 11/18/2025 11:00 AM EST Telemedicine [facility] CHC MED & PEDS [address] [place] [address] Shanelle Miller, RN [address] [place] [address] 01/02/2026 10:00 AM EST Office Visit [facility] ADULT DENTAL [address] [place] [address] Linsey Dawkins documented as of this encounter [...] on filedocumented in this encounter Care Teams Geospatial Information Technologist Relationship Specialty Start Date End Date Sepideh Hopkins ANP [address] [place] [address] PCP - General Family Medicine 07/07/20 Vaishali Minor PharmD [address] [place] [address] Pharmacist Internal Medicine 10/29/24 Clarence Perkins Special Effects DesignerManager Sql 06/24/25 documented as of this encounter
--- OUTSIDE RECORDS SUMMARY | 2025-09-11 11:17 | XMS_ITS | Clinical Summary ---
Author Organization [employer] Address [address] [facility] 7[address] [place] [address] Care Team Providers Care Public Safety Dispatcher Name Role Phone Neil Bernard JAVI Primary Care Provider [phone] Vaishali Minor PharmD Unavailable [phone] Allergies No known active allergies Medications * [...] by mouth once daily Active sodium chloride (Oliver) 0.65 % nasal sprayIndications :Nasal congestion 2 [...] cholecalciferol VITAMIN D (Vitamin D-3) 50 MCG (1999) tablet TAKE 1 TABLET BY MOUTH EVERY [...] (four) hours. 18 g 5 025 Active Tirzepatide (Mounjaro) 5 MG/0.5ML solution auto-injectorInd ications:Type 2 diabetes mellitus with hyperlipidemia (HCC) Inject 5 mg under the skin every 7 (seven) days. 2 mL 025 Active insulin glargine (Lantus SoloStar) 100 UNIT/ML penIndications:T ype 2 diabetes mellitus with hyperlipidemia (HCC) INJECT SUBCUTANEOUSLY 34 UNITS ONCE DAILY 15 mL 1 025 Active buPROPion SR (Wellbutrin SR) 100 MG 12 hr tabletIndication s:Mixed anxiety and depressive disorder TAKE 1 TABLET BY MOUTH EVERY MORNING 30 tablet 2 Active gabapentin (Neurontin) 300 MG capsuleIndicatio ns:Diabetic polyneuropathy associated with type 2 diabetes mellitus (HCC) TAKE 2 CAPSULES BY MOUTH TWICE DAILY IN THE MORNING AND AT BEDTIME 120 capsule 2 Active Tiotropium [place] (Spiriva HandiHaler) [address] 1 Act into inhaler and inhale Once per day. USE 1 CAPSULE FOR INHALATION ONCE A DAY DO NOT SWALLOW CAPSULE 30 capsule 5 025 Active Symbicort 160-4.5 MCG/ACT inhaler INHALE 2 PUFFS BY MOUTH TWICE DAILY IN THE MORNING AND AT BEDTIME. RINSE MOUTH AFTER USING. 10.2 g 5 025 Active fluticasone (Flonase) 50 MCG/ACT nasal sprayIndications :Allergic rhinitis, unspecified seasonality, unspecified trigger SPRAY 1 SPRAY IN EACH NOSTRIL TWICE DAILY 48 g 1 Active traMADol (Ultram) 50 MG tabletIndication s:Chronic bilateral low back pain without sciatica Take 1 tablet (50 mg) by mouth Once daily as needed for severe pain for up to 20 doses. 20 tablet Active tiotropium (Spiriva HandiHaler) 18 MCG inhalation [...] at bedtime 120 capsule 2 025 2024 Discontinued traMADol (Ultram) 50 MG tabletIndication s:Chronic bilateral low back pain without sciatica TAKE 1 TABLET BY MOUTH ONCE DAILY NEEDED FOR SEVERE PAIN 20 tablet 025 2024 Discontinued(R eorder (will not trigger notification to Pharmacy)) traMADol (Ultram) 50 MG tabletIndication s:Chronic bilateral low back pain without sciatica Take 1 tablet (50 mg) by mouth Once daily as needed for severe pain for up to 10 doses. 10 tablet 025 2024 Discontinued(R eorder (will not trigger notification to Pharmacy)) Hospital, [...] here for a HDF Recently admiited [facility]25-07/24/25 Patient presented for evaluation of [...] Encounters Date Type Department Care Team Description 09/05/2025 Refill [facility] MED & PEDS [address] [place] [address] Shanelle Miller RN Chronic bilateral low back pain without sciatica 09/05/2025 Telephone [facility] MEDICINE [address] [place] [address] Neil Bernard ANP Med Refill 08/30/2025 10:30 AM EDT Clinical Support [address] [address] Shanelle Miller, diamond cleaver bilateral low back pain without sciatica (Primary Dx) 08/30/2025 Telephone [facility] MED & PEDS [address] [place] [address] Shanelle Miller, MENDEL 08/30/2025 Travel 08/27/2025 1:00 PM EDT Office Visit [facility] WALK[facility]IN CENTER [address] [place] [address] Jess Harris CNP Chronic bilateral low back pain without sciatica 08/27/2025 Travel 08/26/2025 Telephone [facility] MEDICINE [address] [place] [address] Neil Bernard ANP Imaging Orders 08/21/2025 Refill [facility] MED[facility]INE [address] [place] [address] Neil Bernard ANP Mixed anxiety and depressive disorder; Diabetic polyneuropathy associated with type 2 diabetes mellitus (HCC); Allergic rhinitis, unspecified seasonality, unspecified trigger 08/20/2025 Refill [facility] [address] [place] [address] Dina Kulkarni MD Allergic rhinitis, unspecified seasonality, unspecified trigger 08/13/2025 Telephone [facility] MEDICINE [address] [place] [address] Neil Bernard ANP Results 08/07/2025 Travel 08/06/2025 9:30 AM EDT Office Visit [address] [address] Ramez Schroeder MD Hospital discharge follow-up (Primary Dx); Acute pain of left shoulder; Moderate persistent asthma without complication; Encounter for immunization 08/06/2025 Refill [facility] MED & PEDS [address] [place] [address] Shanelle Miller RN Chronic bilateral low back pain without sciatica 08/06/2025 Refill [facility] MED[facility]INE [address] [place] [address] Neil Bernard ANP Chronic bilateral low back pain without sciatica 08/06/2025 Travel 08/05/2025 Telephone [facility] MEDICINE [address] [place] [address] Neil Bernard ANP Med Refill 08/05/[address] [address] Ramez Schroeder MD chart prep 07/31/[address] [address] Vaishali Minor, PharmD Triage 07/30/[address] [address] Vaishali Minor, PharmD Call back request 07/26/2025 Telephone [facility] MED[facility]INE [address] [place] [address] Vaishali Minor, PharmD 07/25/2025 Telephone [facility] MEDICINE [address] [place] [address] Veronica Gupta, MENDEL Hospital Follow-up 07/23/2025 10:20 AM EDT Office Visit [facility] [address] [place] [address] [phone] Nancy Ma MD Unstable angina ([facility]) (Primary Dx); Chest pain, unspecified type 07/23/2025 Orders Only [facility] External Provider, [facility] 07/23/2025 Telephone [facility] MEDICINE [address] [place] [address] Adrianna Hammonds RN 07/23/2025 Travel 07/22/2025 Travel 07/19/[address] [address] Neil Bernard ANP nov recall 07/19/2025 Results Follow-Up [address] [address] Neil Bernard ANP Culture, Urine, Routine 07/19/2025 Orders Only [address] [address] Neil Bernard ANP Hypomagnesemia (Primary Dx) 07/05/2025 1:00 PM EDT Office Visit [facility] ADULT DENTAL [address] [place] [address] Everett Angeles, YENI 07/03/2025 2:30 PM EDT Office Visit [facility] ADULT DENTAL [address] [place] [address] Everett Angeles DMD 07/03/2025 Telephone [facility] ADULT DENTAL [address] [place] [address] Everett Angeles, DMD Dr. Angeles case delivery 06/28/[address] [address] Sharon Garrison RN Medication Directions 06/28/2025 Orders Only [facility] MEDICINE [address] [place] [address] Neil Bernard ANP Hypomagnesemia (Primary Dx) 06/27/2025 3:30 PM EDT Office Visit [facility] ADULT DENTAL [address] [place] [address] Everett Angeles, DMD 06/27/2025 Telephone [facility] PEDIATRICS [address] [place] [address] Neil Bernard ANP Critical Magnesium 06/27/2025 Refill [facility] MED & PEDS [address] [place] [address] Neil Bernard ANP Chronic bilateral low back pain without sciatica 06/26/2025 Refill [facility] MEDICINE [address] [place] [address] Neil Bernard ANP Chronic bilateral low back pain without sciatica 06/24/2025 3:00 PM EDT Office Visit [facility] ADULT DENTAL [address] [place] [address] Raysa Sneed 06/24/2025 Telephone [facility] MED & PEDS [address] [place] [address] Neil Bernard ANP Care Coordination (ICP Care Plan) 06/24/2025 Telephone [facility] ADULT DENTAL [address] [place] [address] Everett Angeles DMD 06/21/2025 11:00 AM EDT Office Visit [facility] ADULT DENTAL [address] [place] [address] Everett Angeles DMD 06/21/2025 Results Follow-Up [facility] MED[facility] [address] [place] [address] Neil Bernard ANP Magnesium 06/21/2025 Telephone [facility] PEDIATRICS [address] [place] [address] Neil Bernard ANP CRITICAL LAB 06/21/2025 Refill [facility] MEDICINE [address] [place] [address] Neil Bernard ANP Neck pain 06/19/2025 Refill [facility] MEDICINE [address] [place] [address] Vaishali Minor, Leonidas Type 2 diabetes mellitus with hyperlipidemia (CMS/HCC) (CMS/HCC) 06/17/2025 Orders Only [facility] MEDICINE [address] [place] [address] Neil Bernard ANP Hypomagnesemia (Primary Dx) 06/17/2025 Travel 06/11/2025 Telephone [facility] MEDICINE [address] [place] [address] Neil Bernard ANP Durable Medical Equipment 06/11/2025 Results Follow-Up [facility] MED[facility] [address] [place] [address] Neil Bernard ANP BI Mammogram Diagnostic Tomosynthesis Bilateral 06/11/2025 Telephone [facility] MEDICINE [address] [place] [address] Neil Bernard ANP Durable Medical Equipment from Last 3 Months Immunizations Immunization Administration [...] Sign Reading Time Taken Comments Blood Pressure 111/75 08/27/2025 1:08 PM EDT Pulse 85 08/27/2025 1:08 PM EDT Temperature 36.8 C (98.2 F) 08/27/2025 1:08 PM EDT Respiratory Rate 16 08/27/2025 1:08 PM EDT Oxygen Saturation 98% 08/27/2025 1:08 PM EDT Inhaled Oxygen Concentration - - Weight 68.9 kg (152 lb) 08/27/2025 1:08 PM EDT Height 154.9 cm (5' 1 ) 08/06/2025 9:40 AM EDT Body Mass Index 28.72 08/06/2025 9:40 AM EDT Plan of Treatment Upcoming Encounters Date Type Department Care Team (Late st Contact Info) Description 09/23/2025 11:00 AM EST Medication Management [facility] MEDICINE [address] [place] [address] Vaishali Minor, PharmD [address] [place] [address] 10/01/2025 9:15 AM EST Office Visit [facility] MEDICINE [address] [place] [address] Neil Bernard ANP [address] [place] [address] 11/18/2025 11:00 AM EST Telemedicine [facility] MED & PEDS [address] [place] [address] Shanelle Miller, RN [address] [place] [address] 01/02/2026 10:00 AM EST Office Visit [facility] ADULT DENTAL [address] [place] [address] Linsey Dawkins Health Maintenance Due Date Last [...] 0803/2025, 06/06/2024, Additional history exists Tobacco Screening 08/27/2026 08/27/2025 Eye Exam 12/11/2026 12/11/2024, 02/2025, 12/11/2024, Additional [...] Name Priority Date/Time Associated Diagnosis Comments POCT JAMES-14 URINE DRUG SCREEN Routine 08/30/2025 10:41 AM EDT Chronic bilateral low back pain without sciatica XR HUMERUS LEFT Routine 08/06/2025 10:30 AM [...] 06/11/2025 10:05 AM EDT Breast pain, left HM COLONOSCOPY Routine 01/09/2025 8:51 AM EST [...] to Health Maintenance Results * (ABNORMAL) POCT JAMES-14 Urine Drug Screen (08/30/2025 10:41 AM EDT) THC Negative Negative Cocaine Screen, Urine Negative Negative Opiate Screen, Urine Negative Negative Methamphetamine Screen Urine Negative Negative Amphetamine Screen, Urine Negative Negative Benzodiazepines Screen, Urine Positive(A) Negative Comment:Rx outside provider Barbiturate Screen, Urine Negative Negative Methadone Screen, Urine Negative Negative Buprenophine Screen, Urine Negative Negative TCA, Urine Negative Negative MDMA Urine Negative Negative ng/mL Oxycodone Screen, Urine Negative Negative Phencyclidine (PCP), Urine Negative Negative Propoxyphene, Urine Negative Negative Fentanyl, Urine Negative Negative Urine Urine specimen obtained by clean catch procedure / Unknown 08/30/2025 10:41 AM EDT Narrative Shanelle Miller RN - 08/30/2025 10:41 AM EDT .UTOX cup Lot#[id number] Exp. 08/13/26 Internal Pass Control [facility] POINT OF CARE TEST ENTER/EDIT OR DERABLES Final Result * XR Humerus Left (08/06/2025 10:30 AM EDT) Anatomical Region Laterality Modality Upper Extremities, Humerus Left Radio graphic Imaging 08/06/2025 10:3 0 AM EDT Narrative 08/06/2025 10:38 AM EDT [address] XRay Report Signed Patient: Joelle Myers I MR#: [id number] : 1960 Acct:[id number] Age/Sex: 65 / F ADM Date: 08/06/25 Loc: ANNIKACX Attending Dr: Ramez Newman MD Ordering Physician: Ramez Newman MD Date of Service: 08/06/25 Procedure(s): XR humerus LT Accession Number(s): [id number] cc: Ramez Newman MD; NEIL BERNARD NP [...] 08/06/25 1036 DD/ 1030 TD/TT: 08/06/25 1031 Rotational Moulding Operator: Procedure Note Donotuseinterpreter, Image - 08/06/[address] XRay Report Signed Patient: Joelle Myers IMR#: [id number] : 1960cct:[id number] Age/Sex: 65 / FADM Date: 08/06/25 Loc: HHCX Attending Dr: Ramez Newman MD Ordering Physician: Ramez Newman MD Date of Service: 08/06/25 Procedure(s): XR humerus LT Accession Number(s): [id number] cc: Ramez Newman MD; NEIL BERNARD NP [...] 08/06/25 1036 DD/ 1030 TD/TT: 08/06/25 1031 Rotational Moulding Operator: Ramez Perkins MD IMG XR PROCEDURES Quentin laura Result - Final * XR Shoulder 2+ Views Left (08/06/2025 10:30 AM EDT) Anatomical Region Laterality Modality Upper Extremities, Shoulder Left Radi ographic Imaging 08/06/2025 10:3 0 AM EDT Narrative 08/06/2025 10:39 AM EDT [address] [address] XRay Report Signed Patient: Joelle Myers I MR#: [id number] : 1960 Acct:[id number] Age/Sex: 65 / F ADM Date: 08/06/25 Loc: HO.CX Attending Dr: Ramez Newman MD Ordering Physician: Ramez Newman MD Date of Service: 08/06/25 Procedure(s): XR shoulder LT min 2V Accession Number(s): [id number] cc: Ramez Newman MD; NEIL BERNARD NP [...] 08/06/25 1036 DD/ 1030 TD/TT: 08/06/25 1031 Rotational Moulding Operator: Procedure Note Donotuseinterpreter, Image - 08/06/2025 [place] [address] XRay Report Signed Patient: Joelle Myers [facility]#: [id number] : 1960cct:[id number] Age/Sex: 65 / FADM Date: 08/06/25 Loc: HO.HHCX Attending Dr: Ramez Newman MD Ordering Physician: Ramez Newman MD Date of Service: 08/06/25 Procedure(s): XR shoulder LT min 2V Accession Number(s): [id number] cc: Ramez Newman MD; NEIL BERNARD NP [...] 08/06/25 1036 DD/ 1030 TD/TT: 08/06/25 1031 Rotational Moulding Operator: Ramez Perkins MD IMG XR PROCEDURES Quentin laura Result - Final * (ABNORMAL) POCT glucose manually resulted (08/06/2025 10:05 AM EDT) Glucose Blood, POC 332(A) 60 - 200 mg/dL QC Media Lot # [id number] Lot# Expiration Date 2291, Blood Capillary blood specimen / Unknown 08/06/2025 10:05 AM EDT us Ramez Perkins MD POINT OF CARE TEST EN TER/EDIT ORDERABLES Final Result * (ABNORMAL) POCT glycosylated hemoglobin (Hgb A1c) (08/06/2025 10:04 AM EDT) Hemoglobin A1C 8.4(A) 4.0 - 5.7 % QC Media Lot # [id number] Lot# Expiration Date [id number] Blood Capillary blood specimen / Unknown 08/06/2025 10:04 AM EDT us Ramez Perkins MD POINT OF CARE TEST EN TER/EDIT ORDERABLES Final Result * NM heart perfusion SPECT stress and rest (07/24/2025 8:55 AM EDT) Anatomical Region Laterality Modality Body Nuclear Medicine 07/24/2025 8:55 AM EDT Narrative 07/24/2025 12:32 PM EDT [place] [address] Nuclear Medicine Report Signed Patient: Joelle Myers I MR#: [id number] 426 : 1960 Acct:[id number] Age/Sex: 65 / F ADM Date: 07/23/25 Loc: [facility] 486-[address]: Georgette Cohen MD Ordering Physician: Rashid Recinos MD Date of Service: 07/24/25 Procedure(s): NM ramon perf SPECT rest str Accession Number(s): [id number] cc: NEIL BERNARD CHIEF DIGITAL MEDIA OFFICER; Rashid Recinos MD Reason for Exam: chest [...] 07/24/25 1230 DD/ 0855 TD/TT: 07/24/25 1115 Rotational Moulding Operator: Procedure Note Donotuseinterpreter, Image - 07/24/2025 [place] [address] Nuclear Medicine Report Signed Patient: Joelle Myers IMR#: [id number] : 1960cct:[id number] Age/Sex: 65 / FADM Date: 07/23/25 Loc: [facility] 486-[address]: Georgette Cohen MD Ordering Physician: Rashid Recinos MD Date of Service: 07/24/25 Procedure(s): NM ramon perf SPECT rest str Accession Number(s): [id number] cc: NEIL BERNARD CHIEF DIGITAL MEDIA OFFICER; Rashid Recinos MD Reason for Exam: chest [...] 07/24/25 1230 DD/ 0855 TD/TT: 07/24/25 1115 Rotational Moulding Operator: [facility] External Provider IMG NM PROCEDURES Edited Result - Final * ECG 12 lead (07/23/2025 10:58 AM EDT) Narrative Nancy Ma MD - 07/23/2025 10:58 AM EDT NSR at 77bpm. No ischemia or infarction. Nancy Ma MD ECG ORDERABLES Final Result * Culture, Urine, Routine (06/27/2025 2:37 PM EDT) Urine Urine specimen obtained by clean catch procedure / Unknown 06/27/2025 2:37 PM EDT 06/27/2025 4:25 PM EDT Comment:[facility] - 06/29/2025 10:59 AM EDT Urine Culture No growth. Specimen Source: Urine clean catch Neil Bernard ANP LAB MICROBIOLOGY - GENERAL ORDER BARRERA Final Result Performing Organization Address [facility] de Phone Number [facility] [address] [place] [phone] * (ABNORMAL) Magnesium (06/27/2025 2:37 PM EDT) Only the most recent of2 resultswithin the time period is included. Magnesium 1.2(LL) 1.6 - 2.6 mg/dL [facility] Comment:Critical value for t est(s):MAGS Results called to and readback by:DEBBIE Jones Person calling: [employer] Date: 65-69-02Sbtg:1700 Blood Venous blood specimen / Unknown 06/27/2025 2:37 PM EDT 06/27/2025 4:20 PM EDT Neil Bernard ANP LAB BLOOD ORDERABLES Final Resul t Performing Organization Address [facility] Co de Phone Number [facility] [address] [place] [phone] * BI US Breast Limited Left (06/11/2025 10:30 AM EDT) Anatomical Region Laterality Modality Breast Left Ultrasound 06/11/2025 10:3 0 AM EDT Narrative 06/11/2025 10:59 AM EDT [facility] [address] [place] [address] Ultrasound Report Signed Patient: Joelle Myers I MR#: [id number] : 1960 Acct:[id number] Age/Sex: 64 / F ADM Date: 06/11/25 Loc: MAMMO Attending Dr: Neil Bernard NP Ordering Physician: NEIL BERNARD NP Date of Service: 06/11/25 Procedure(s): US breast LT limited Accession Number(s): [id number] cc: NEIL BERNARD NP EXAMINATIONS: 1. MM [...] 06/11/25 1056 DD/ 1030 TD/TT: 06/11/25 1049 Rotational Moulding Operator: Procedure Note Donotuseinterpreter, Image - 06/11/2025 [facility] [address] [place], [place] [address] Ultrasound Report Signed Patient: Joelle Myers IMR#: [id number] : 1960cct:[id number] Age/Sex: 64 / FADM Date: 06/11/25 Loc: HO.MAMMO Attending Dr: Neil Bernard NP Ordering Physician: NEIL BERNARD NP Date of Service: 06/11/25 Procedure(s): US breast LT limited Accession Number(s): [id number] cc: NEIL BERNARD NP EXAMINATIONS: 1. MM [...] 06/11/25 1056 DD/ 1030 TD/TT: 06/11/25 1049 Rotational Moulding Operator: us Neil Bernard ANP IMG US PROCEDURES Edited Result - Final * BI Mammogram Diagnostic Tomosynthesis Bilateral (06/11/2025 10:05 AM EDT) Anatomical Region Laterality Modality Breast Bilateral Mammography 06/11/2025 10:0 5 AM EDT Narrative 06/11/2025 10:59 AM EDT [facility] [address] [place] [address] Mammography Report Signed Patient: Joelle Myers I MR#: [id number] : 1960 Acct:[id number] Age/Sex: 64 / F ADM Date: 06/11/25 Loc: HO.MAMMO Attending Dr: Neil Bernard NP Ordering Physician: NEIL BERNARD NP Results: 2Benign Ash[place] ho Date of Service: 06/11/25 Follow Up: 1 Year From [facility] ina Mammogram Procedure(s): MM tomosynthesis diagnostic BI Accession Number(s): [id number] cc: NEIL BERNARD NP EXAMINATIONS: 1. MM [...] 06/11/25 1056 DD/ 1005 TD/TT: 06/11/25 1030 Rotational Moulding Operator: Procedure Note Donotuseinterpreter, Image - 06/11/20[facility] [address] [place] [address] Mammography Report Signed Patient: Joelle Myers [facility]#: [id number] : 1Acct:[id number] Age/Sex: 64 / FADM Date: 06/11/25 Loc: HO.MAMMO Attending Dr: Neil Bernard CHIEF DIGITAL MEDIA OFFICER Ordering Physician: NEIL BERNARD NPResults: 2Benign Ashu ho Date of Service: 06/11/25Follow Up: 1 Year From Orig inal Mammogram Procedure(s): MM tomosynthesis diagnostic BI Accession Number(s): [id number] cc: NEIL BERNARD NP EXAMINATIONS: 1. MM [...] 06/11/25 1056 DD/ 1005 TD/TT: 06/11/25 1030 Rotational Moulding Operator: Neil Bernard ANP IMG BI PROCEDURES Edited Result - Final * Hm Colonoscopy (01/09/2025 8:51 AM EST) Historical Provider HEALTH MAINTENANCE Final Result * Lipid Panel, Standard (12/17/2024 6:58 AM EST) Triglycerides 58 <150 mg/dL [facility] Comment:Desirable Triglyceri de: less than 150 mg/dLBorderline High Triglyceride 150-199 mg/dLHigh Triglyceride: 200-499 mg/dLVery High Triglyceride: greater than or equal to 5OO mg/dL Cholesterol 106 <200 mg/dL [facility] Comment:Desirable Cholestero l: less than 200 mg/dLBorderline High Cholesterol: 200-239 mg/dLHigh Cholesterol: greater than 239 mg/dL LDL Cholesterol Calculated 45 <100 mg/dL [facility] Comment:Desirable LDL: less than 100 mg/dLNear Optimal/Above Optimal LDL: 110- 129 mg/dLBorderline High LDL: 130-159 mg/dLHigh LDL: 160-189 mg/dLVery High LDL: greater than or equal to 190 mg/dL HDL Cholesterol 50 >40 mg/dL [facility] Comment:Desirable HDL: great er than 40 mg/dL Note: This HDL assay may give artificially low results in patients with liver disease. 12/17/2024 6:58 AM EST 12/17/2024 6:58 AM EST Neil Bernard ANP LAB BLOOD ORDERABLES Final Resul t [facility] [address] [place] [phone] * Albumin, Random Urine W/Creatinine (10/12/2024 9:52 AM EST) Creatinine, Urine 41.64 mg/dL [facility] Microalbumin Urine 6.0 mg/L [facility] Microalbum Creatinine Ratio Ur 14.4 <30 ug/mg cr [facility] Comment:Albumin/Creatinine R atio Reference Ranges: Normal: < 30 ug/mg creatinine Microalbuminuria: 30 - 300 ug/mg creatinineClinical Albuminuria: > 300 ug/mg creatinine Urine (Urine, Random) 10/12/2024 9:52 AM EST 10/12/2024 10:49 AM EST us Neil CALDWELL LAB URINE ORDERABLES Final Resul t Performing Organization Address City/State/[facility] Co de Phone Number [facility] [address] [place] [address] [phone] from Last 3 Months or Most Recently Relevant to Health Maintenance Insurance [facility] C[facility] ST[employer] ADULT Care Teams Public Safety Dispatcher Relationship Specialty Start Date End Date Neil Bernard ANP [address] [place], [place] PCP - General Family Medicine 07/07/20 Vaishali Minor PharmD [address] [place], [place] Pharmacist Internal Medicine 10/29/24 Clarence Perkins Senior Java DeveloperTextile Machinery Instructor 06/24/25
--- OUTSIDE RECORDS SUMMARY | 2025-09-11 11:17 | XMS_ITS | Encounter Summary ---
Author Organization [employer] Address [address] [facility] 7t [place] [address] Care Team Providers Care Supervisor Mails Name Role Phone Sepideh Hopkins Primary Care Provider [phone] Vaishali Minor PharmD Unavailable [phone] Encounter Details Date Type Department Care Team (Latest Contact Info) Description 07/23/2022 Abstract [facility] CONVERSIONS Dental, Provider, DDS Social History [...] Description 09/23/2025 11:00 AM EST Medication Management [facility] MEDICINE [address] [place] [address] Vaishali Minor, PharmD [address] [place] [address] 10/01/2025 9:15 AM EST Office Visit [facility] MEDICINE [address] [place] [address] Sepideh Hopkins ANP [address] [place] [address] 11/18/2025 11:00 AM EST Telemedicine [facility] CHC MED & PEDS [address] [place] [address] Shanelle Miller, MENDEL [address] [place] [address] 01/02/2026 10:00 AM EST Office Visit [facility] ADULT DENTAL [address] [place] [address] Linsey Dawkins documented as of this encounter Visit Diagnoses Not on filedocumented in this encounter Care Teams Supervisor Mails Relationship Specialty Start Date End Date Sepideh Hopkins ANP [address] [place] [address] PCP - General Family Medicine 07/07/20 Vaishali Minor PharmD [address] [place] [address] Pharmacist Internal Medicine 10/29/24 Clarence Perkins Trust Mail ClerkCharge Hand 06/24/25 documented as of this encounter
--- OUTSIDE RECORDS SUMMARY | 2025-09-11 11:17 | XMS_ITS | Data Portability ---
Author Organization [place] [facility], Allergy Address [address] [place] [phone] Assessment No assessment recorded. Plan of Treatment Reminders Order Date Submit Date Provider Last Modified By Organization Details Last Modified Time Details Appointments None recorded. Lab None recorded. Referral None recorded. Procedures None recorded. Surgeries None recorded. Imaging CT, sinuses, w/o contrast 2024 025 MALLY [facility] Of [address], [address], 17:15:00 Medication Orders None recorded. Patient TargetsNo targets recorded. Patient InstructionsNo instructions recorded. Reason for Referral None Reported. Results Created Date Observation Date Name Description Value Unit Range Abnormal Flag Note LastModifiedBy Organization Detail LastModifiedTime 09/03/[address], sinus es, w/o contr ast No observ ation record ed. [email or web address] En[facility] Of [address], [address], 09/03/2025 15:13:16 09/03/20 25 audio gram No observ ation record ed. BARCODE Not Available 2024 18:40:21 Result Notes None recorded. Problems Name Problem SNOMED Code Status Onset Date Resolution Date Notes Provider Name and Address Organization Details Recorded Time Dizziness and giddiness 840727430 Active 2024 JENNA BENNETT [address], [address], [facility] - [facility] 14:35:35 Pain in face 01995197 Active 2024 KENISHA Bowling MD [address] [address], [place], [address], [place] [facility] 15:12:20 Maxillary sinusitis 34864839 Active 2024 KENISHA Bowling MD [address] [address], [place], [address], [facility] - [facility] 15:12:24 Impacted cerumen in right ear 85391606622207 03 Active 2024 KENISHA Bowling MD [address] [address], [place], [address], [facility] 15:14:29 Problem Notes None recorded. Procedures Surgical History Date Name Laterality Status Provider Name and Address Organization Details Recorded Time Cerumen removal without microscope right completed KENISHA GRAHAM MD [address], [address], [facility] 09/03/2025 15:13:45 NasalEndoscopy_ DP completed KENISHA GRAHAM MD [address], [address], [facility] 09/03/2025 15:02:56 Air & Speech Audio with Tymps - 28111, [address] & [address] completed JENNA BENNETT [address] [place] [address], [phone], [facility] 09/03/2025 14:35:25 Imaging Results None recorded. Procedure Notes None recorded. Medical Equipment None Reported. Allergies No known drug allergies Medications Name Sig Start Date Stop Date Status Note LastModified by Organization Details LastModified Time medbox status USE DIRECTED active Not Available Not Available No t Available amoxicillin 500 mg capsule TAKE 1 CAPSULE BY MOUTH EVERY 8 HOURS UNTIL FINISHED active Not Available Not Available No t Available pioglitazone 15 mg tablet TAKE 1 TABLET BY MOUTH EVERY MORNING active Not Available Not Available No t Available atorvastatin 40 mg tablet TAKE 1 TABLET BY MOUTH AT BEDTIME active Not Available Not Available No t Available terconazole 0.4 % vaginal cream INSERT 1 APPLICATORF UL VAGINALLY AT BEDTIME FOR 7 DAYS active Not Available Not Available N ot Available albuterol sulfate 2.5 mg/3 mL (0.083 %) solution for nebulization INHALE 1 AMPULE USING A NEBULIZER EVERY 6 HOURS NEEDED FOR WHEEZING OR SHORTNESS OF BREATH active Not Available Not Available No t Available cetirizine 10 mg tablet TAKE 1 TABLET BY MOUTH EVERY MORNING active Not Available Not Available No t Available Stool Softener 100 mg capsule TAKE 1 CAPSULE BY MOUTH EVERY DAY FOR CONSTIPATIO N active Not Available Not Available No t Available nitroglyceri n 0.3 mg sublingual tablet DISSOLVE 1 TABLET UNDER THE TONGUE EVERY 5 MINUTES NEEDED FOR ANGINA FOR 10 DAYS. NO MORE THAN 3 DOSES PER EPISODE. CALL 911 IF NO RELIEF AFTER FIRST DOSE active Not Available Not Available No t Available fluconazole 150 mg tablet TAKE 1 TABLET BY MOUTH ONCE FOR 1 DOSE, REPEAT IN ONCE IN 3 DAYS active Not Available Not Available No t Available metoprolol succinate ER 50 mg tablet,exten ded release 24 hr TAKE 1 TABLET BY MOUTH EVERY MORNING active Not Available Not Available No t Available senna 8.6 mg tablet TAKE 2 TABLETS BY MOUTH EVERY DAY AT BEDTIME FOR CONSTIPATIO N active Not Available Not Available No t Available famotidine 40 mg tablet TAKE 1 TABLET BY MOUTH AT BEDTIME active Not Available Not Available No t Available prednisone 20 mg tablet TAKE 1 TABLET BY MOUTH ONCE DAILY FOR 7 DAYS active Not Available Not Available No t Available sertraline 100 mg tablet TAKE 1 TABLET BY MOUTH EVERY MORNING active Not Available Not Available No t Available metronidazol e 500 mg tablet TAKE 1 TABLET BY MOUTH TWICE DAILY FOR 7 DAYS active Not Available Not Available No t Available ciprofloxaci n 500 mg tablet TAKE 1 AND 1/2 TABLETS (750 MG) BY MOUTH TWICE DAILY FOR 3 DAYS active Not Available Not Available No t Available sulfamethoxa zole 800 mg-trimethop rim 160 mg tablet TAKE 1 TABLET BY MOUTH TWICE DAILY FOR 3 DAYS active Not Available Not Available No t Available aspirin 81 mg tablet,delay ed release TAKE 1 TABLET BY MOUTH EVERY MORNING active Not Available Not Available No t Available tramadol 50 mg tablet TAKE 1 TABLET BY MOUTH EVERY DAY NEEDED FOR SEVERE PAIN FOR UP TO 10 DAYS active Not Available Not Available No t Available acetaminophe n 500 mg tablet TAKE 1 TO 2 TABLETS BY MOUTH EVERY 8 HOURS NEEDED active Not Available Not Available No t Available bupropion HCl SR 100 mg tablet,12 hr sustained-re lease TAKE 1 TABLET BY MOUTH EVERY MORNING active Not Available Not Available No t Available fenofibrate micronized 134 mg capsule TAKE 1 CAPSULE BY MOUTH EVERY MORNING active Not Available Not Available No t Available acetaminophe n ER 650 mg tablet,exten ded release TAKE 1 TABLET BY MOUTH EVERY 8 HOURS NEEDED FOR PAIN FOR UP TO 10 DAYS. DO NOT BREAK, CRUSH, DISSOLVE OR CHEW. active Not Available Not Available No t Available Deep Sea Nasal 0.65 % spray aerosol GIVE 1 SPRAY IN EACH NOSTRIL NEEDED FOR CONGESTION active Not Available Not Available N ot Available magnesium oxide 400 mg (241.3 mg magnesium) tablet TAKE 1 TABLET BY MOUTH EVERY MORNING active Not Available Not Available No t Available lorazepam 0.5 mg tablet TAKE 1 TABLET BY MOUTH TWICE DAILY NEEDED active Not Available Not Available No t Available metocloprami de 5 mg tablet TAKE 1 TABLET BY MOUTH FOUR TIMES DAILY BEFORE MEALS AND AT BEDTIME active Not Available Not Available N ot Available meclizine 25 mg tablet TAKE 1 TABLET BY MOUTH THREE TIMES DAILY IN THE MORNING, AT NOON, AND AT BEDTIME NEEDED FOR DIZZINESS FOR UP TO 10 DAYS active Not Available Not Available No t Available acarbose 100 mg tablet TAKE 1 TABLET BY MOUTH THREE TIMES DAILY IN THE MORNING, AT NOON, AND IN THE EVENING active Not Available Not Available No t Available pantoprazole 40 mg tablet,delay ed release TAKE 1 TABLET BY MOUTH EVERY MORNING (media hora antes A desayuno) active Not Available Not Available No t Available esomeprazole magnesium 40 mg capsule,ronan yed release TAKE 1 CAPSULE BY MOUTH EVERY DAY active Not Available Not Available No t Available lidocaine 5 % topical patch APPLY 1 PATCH TOPICALLY TO SKIN, LEAVE ON FOR 12 HOURS AND OFF FOR 12 HOURS DIRECTED active Not Available Not Available No t Available gabapentin 300 mg capsule TAKE 2 CAPSULES BY MOUTH TWICE DAILY IN THE MORNING AND AT BEDTIME active Not Available Not Available No t Available bisacodyl 5 mg tablet,delay ed release TAKE 4 TABLETS BY MOUTH AT NOON DAY BEFORE COLONOSCOPY active Not Available Not Available Not Available furosemide 20 mg tablet TAKE 1 TABLET BY MOUTH EVERY MORNING NEEDED FOR SWELLING active Not Available Not Available No t Available metoprolol succinate ER 25 mg tablet,exten ded release 24 hr TAKE 1 TABLET BY MOUTH TWICE DAILY IN THE MORNING AND IN THE EVENING active Not Available Not Available No t Available polyethylene glycol 3350 17 gram/dose oral powder MIX DIRECTED AND TAKE DIRECTED BY [facility] active Not Available Not Available No t Available zolpidem 10 mg tablet TAKE 1 TABLET BY MOUTH EVERY DAY NEEDED active Not Available Not Available No t Available pioglitazone 30 mg tablet TAKE 1 TABLET BY MOUTH EVERY MORNING active Not Available Not Available No t Available fluticasone propionate 50 mcg/actuatio n nasal spray,suspen phoenix USE 1 SPRAY IN EACH NOSTRIL TWICE DAILY active Not Available Not Available Not Available metformin ER 500 mg tablet,exten ded release 24 hr TAKE 1 TABLET BY MOUTH TWICE DAILY IN THE MORNING AND IN THE EVENING WITH MEALS active Not Available Not Available N ot Available amoxicillin 875 mg-potassium clavulanate 125 mg tablet TAKE 1 TABLET BY MOUTH TWICE DAILY active Not Available Not Available No t Available Ventolin HFA 90 mcg/actuatio n aerosol inhaler INHALE 2 PUFFS BY MOUTH EVERY 4 HOURS active Not Available Not Available No t Available insulin aspart (U-100) 100 unit/mL (3 mL) subcutaneous pen INJECT 6 UNITS SUBCUTANEOU SLY BEFORE BREAKFAST AND 16 UNITS BEFORE SUPPER. DO NOT USE IF SKIP MEAL. active Not Available Not Available N ot Available Spiriva with HandiHaler 18 mcg and inhalation capsules USE 1 CAPSULE FOR INHALATION ONCE A DAY DO NOT SWALLOW CAPSULE active Not Available Not Available No t Available chlorhexidin e gluconate 0.12 % mouthwash SWISH 15 ML IN THE MOUTH OR THROAT FOR 30 SECONDS THEN SPIT OUT THREE TIMES DAILY IN THE MORNING, AT NOON, AND AT BEDTIME FOR UP TO 5 DAYS active Not Available Not Available No t Available Glutose-15 40 % oral gel USE DIRECTED NEEDED FOR LOW BLOOD SUGAR active Not Available Not Available No t Available Symbicort 160 mcg-4.5 mcg/actuatio n HFA aerosol inhaler INHALE 2 PUFFS TWICE DAILY IN THE MORNING AND AT BEDTIME. RINSE MOUTH AFTER USING. active Not Available Not Available No t Available Lantus Solostar U-100 Insulin 100 unit/mL (3 mL) subcutaneous pen INJECT 34 UNITS SUBCUTANEOU SLY EVERY DAY active Not Available Not Available No t Available cholecalcife rol (vitamin D3) 50 mcg (2,000 unit) tablet TAKE 1 TABLET BY MOUTH EVERY MORNING active Not Available Not Available No t Available blood pressure test kit-large cuff USE TO CHECK BLOOD PRESSURE TWICE DAILY active Not Available Not Available Not Available TRUEplus Lancets 33 gauge TEST BLOOD SUGAR THREE TIMES DAILY active Not Available Not Available Not Available Eliquis 2.5 mg tablet TAKE 1 TABLET BY MOUTH TWICE DAILY IN THE MORNING AND IN THE EVENING active Not Available Not Available No t Available Jardiance 10 mg tablet TAKE 1 TABLET BY MOUTH EVERY MORNING active Not Available Not Available No t Available Pentips Pen Needle 32 gauge x 5/32 USE DIRECTED WITH INSULIN EVERY DAY active Not Available Not Available No t Available naloxone 4 mg/actuation nasal spray FOR SUSPECTED OPIOID OVERDOSE. SPRAY 0.1mL IN ONE NOSTRIL. REPEAT IN ALTERNATE NOSTRIL 2-3 MINUTES IF NEEDED. SEEK MEDICAL ATTENTION IMMEDIATELY EVEN IF PATIENT RESPONDS. active Not Available Not Available No t Available FreeStyle Precision Nader Strips TEST BLOOD SUGAR THREE TIMES DAILY active Not Available Not Available Not Available Compact Space Chamber USE WITH INHALER EVERY 4 HOURS NEEDED (for asthma) active Not Available Not Available No t Available Mag-Delay 64 mg tablet,delay ed release TAKE 2 TABLETS BY MOUTH TWICE DAILY active Not Available Not Available No t Available FreeStyle Dagmar 2 Sensor kit USE DIRECTED CHANGE EVERY 14 DAYS active Not Available Not Available No t Available FreeStyle Dagmar 2 [place] USE DIRECTED EVERY 8 HOURS active Not Available Not Available No t Available Trulicity 3 mg/0.5 mL subcutaneous pen injector INJECT ONE PEN (= 3MG) SUBCUTANEOU SLY ONCE A WEEK DIRECTED active Not Available Not Available No t Available Ozempic 1 mg/dose (4 mg/3 mL) subcutaneous pen injector Inject 1 MG SUBCUTANEOU SLY EVERY 7 DAYS IN THE ABDOMEN, THIGHS OR UPPER ARM. ROTATE INJECTION SITES. active Not Available Not Available No t Available Ozempic 2 mg/dose (8 mg/3 mL) subcutaneous pen injector Inject 2 MG SUBCUTANEOU SLY EVERY 7 DAYS IN THE ABDOMEN, THIGHS OR UPPER ARM. ROTATE INJECTION SITES. active Not Available Not Available No t Available Mounjaro 5 mg/0.5 mL subcutaneous pen injector INJECT ONE PEN (=5MG) SUBCUTANEOU SLY ONCE A WEEK DIRECTED active Not Available Not Available No t Available Mounjaro 2.5 mg/0.5 mL subcutaneous pen injector INJECT ONE PEN (=2.5MG) SUBCUTANEOU SLY ONCE A WEEK DIRECTED active Not Available Not Available No t Available Ozempic 0.25 mg or 0.5 mg (2 mg/3 mL) subcutaneous pen injector INJECT 0.5 MG SUBCUTANEOU SLY EVERY 7 DAYS IN THE ABDOMEN, THIGHS, OR UPPER ARM, ROTATE INJECTION SITES. active Not Available Not Available No t Available FreeStyle Dagmar 3 [place] USE DIRECTED TO TEST BLOOD SUGAR active Not Available Not Available No t Available FreeStyle Dagmar 2 Plus Sensor device USE DIRECTED active Not Available Not Available No t Available Vitals Date Recorded Body height Body mass index (BMI) Body weight Systolic And Diastolic Provider Name and Address Organization Details Last Updated DateTime 09/03/2025 154.94 cm 28.7 kg/m2 22449.04 g 115/76 mm[Hg] Roosevelt Mclaughlin [place] [facility] 09/03/2025 14:53:48 Social History None recorded. Functional Status None recorded. Mental Status None recorded. Family History Nothing Reported. Medical History Condition Response Anxiety Y Hypertension Y Depression Y Asthma Y Kidney Disease Y Gynecological HistoryNo gynecological history recorded. Obstetrics History GPAL:G 0 P 0 0 0 0 Past Encounters Encounter ID Performer Location Encounter Start Date Encounter Closed Date Diagnosis/Indication Diagnosis SNOMED-CT Code Diagnosis ICD10 Code Diagnosis IMO Codes Diagnosis Note [id number] KENISHA GRAHAM MD [facility] [address] [address] 09/03/2025 14:18:21 09/03/2025 15:40:06 Dizziness and giddiness 977764739 R42 22007 Right Ear:Normal hearing with excellent speech discrimina tion.Type A tympanogra m.Left Ear:Normal hearing with excellent speech discrimina tion.Type A tympanogra m. Audio was normal Tang Hallpike was normal. I don't feel her dizziness is otologic in nature. I recommend observatio n. Pain in face 02991115 R5 1.9 045844 Maxillary sinusitis 8834 8008 J32.0 0082401 I recommend a CT sinus to see if her sinusitis resolved after her month long abx course given she has persistent facial pain. We obtained a CT sinus today. On my personal review there was mild opacificat ion in the left maxillary sinus was noted. This is likely somewhat improved compared to the descriptio n on her prior CAT scan. She had trace opacificat ion scattered through her other sinuses. I believe this is not clinically significan t sinusitis and I recommend observatio n. Impacted c erumen in right ear 4047618785 010381 H61.21 8048168 Recurrent Cerumen Impactions : Ears were meticulous ly cleaned bilaterall y today with a curette and suction. The patient tolerated this well and will follow up for repeat debridemen t per routine. Health Concerns Section Related Observation LastModified by Organization Detai ls LastModified Time None Recorded Concern Status LastModified by Organization Details LastModified Time None Recorded Advance Directives Directive None Recorded Payers Insurance Date Sequence Insurance Name Policy Number Policy Wang Covered Member ID Wang Member ID Guarantor Name 02/04/2025 1 [place] [facility] Joelle Myers [id number] Joelle Myers 09/03/2025 1 [place] [facility] Joelle Escobedo [id number] Joelle Myers Notes Date Note Type Note Provider Name and Address Organization Details Recorded Time 09/03/2025 text/html ROS as noted in the HPI She presents with concern for sinusitis. She has frontal and maxillary facial pain. It usually resolves within a day or two. She had a CT head in January at [place] which showed left maxillary sinusitis. She was put on a prolonged course of abx. She was having dizziness. Her dizziness has improved. She denies room spinning vertigo. She has some current frontal pressure. She does endorse allergy to pollen. She has tried cetirizine and flonase with minimal relief. Audio showed borderline normal hearing. KENISHA GRAHAM MD [address] [place] [address], [place], [address], [place] [facility] 09/03/2025 17:12:21 OBGyn Episode No OBEpisode recorded.
--- OUTSIDE RECORDS SUMMARY | 2025-09-11 11:17 | XMS_ITS | Encounter Summary ---
Author Organization [employer] Address [address] [facility] 7t [place] [address] Care Team Providers Care Land Conservation Specialist Name Role Phone Sepideh Hopkins JAVI Primary Care Provider [phone] Vaishali Minor PharmD Unavailable Reason for Visit * Reason Onset Date Comments Appointment 12/08/2022 Patient called i n inquiring about RCT appt with Pasquale. Encounter Details Date Type Department Care Team ([facility] Contact Info) Description 12/08/2022 Telephone [facility] CH[facility] ADULT DENTAL [address] [place], [place] [phone] Gregorio Giordano, ANNIES [address] [place], [place] [phone] Appointment (Patient called in inquiring about RCT [...] 11:00 AM EST Medication Management [facility] MEDICINE [address] [place] [address] Vaishali Minor PharmD [address] [place] [address] 10/01/2025 9:15 AM EST Office Visit [facility] MEDICINE [address] [place] [phone] Sepideh Hopkins ANP [address] [place] [address] 11/18/2025 11:00 AM EST Telemedicine [facility] MED & PEDS [address] [place], [place] [phone] Shanelle Miller, RN 505 [place] [address] 01/02/2026 10:00 AM EST Office Visit [facility] ADULT DENTAL [address] [place] [address] Linsey Dawkins documented as of this encounter Visit Diagnoses Not on filedocumented in this encounter Care Teams Land Conservation Specialist Relationship Specialty Start Date End Date Sepideh Hopkins ANP [address] [place] [phone] PCP - General Family Medicine 07/07/20 Vaishali Minor PharmD [address] [place] [phone] Pharmacist Internal Medicine 10/29/24 Clarence Perkins Wrecking MechanicInformation Coder 06/24/25 documented as of this encounter
== END 2025-09-11 10:44 | disposition home or self-care (01) ==
PROVIDERS: PCP Nurse Practitioner Primary Care; Visit Provider Internal Medicine
DX: I25.10 Atherosclerotic heart disease of native coronary artery without angina pectoris (principal); Z95.5 Presence of coronary angioplasty implant and graft; E11.65 Type 2 diabetes mellitus with hyperglycemia; I10 Essential (primary) hypertension; E78.5 Hyperlipidemia, unspecified
CPT/HCPCS: 99214

== ENCOUNTER → 2025-09-11 09:55 | Outpatient (BNVA) | payer MEDICAID, SELFPAY | PROVIDERS: PCP Nurse Practitioner Primary Care; Visit Provider Internal Medicine | DX: Z71.2 Person consulting for explanation of examination or test findings (principal); I25.10 Atherosclerotic heart disease of native coronary artery without angina pectoris; E11.65 Type 2 diabetes mellitus with hyperglycemia; I10 Essential (primary) hypertension; E78.5 Hyperlipidemia, unspecified; Z95.5 Presence of coronary angioplasty implant and graft | CPT/HCPCS: 99212 ==

== ENCOUNTER 2025-09-16 15:57 | Outpatient (REF) | payer MEDICAID, SELFPAY ==
--- NOTE | ~2025-09-16 | MR_ITS ---
EXAMINATION: MRI Shoulder without contrast, left TECHNIQUE: Multiplanar multisequence MR imaging through an upper extremity joint without contrast. INDICATION: Left shoulder pain for 3 months radiating down the arm, and reports sleep PRIOR: X-ray on 08/06/2025 FINDINGS: Rotator Cuff: There is bursal surface fraying of supraspinatus tendon at the footprint involving less than half the tendon thickness. 1 cm from the footprint, there is fluid signal tracking into the bursal side of supraspinatus tendon involving more than half the tendon thickness. Supraspinatus and infraspinatus tendons are thickened with increased signal. Labrum: Intact Long biceps tendon: The long biceps tendon is intact and not displaced from the groove. Acromioclavicular joint: AC joint is intact and not degenerated. Acromial morphology is flat, type I. There is a small amount fluid in subacromial subdeltoid bursa. Axillary pouch: The axillary pouch is intact. Articular cartilage: There are no articular cartilage defects. Bones/Marrow: There are no marrow replacing lesions. Soft tissues: There is no muscle edema, atrophy, or fatty streaking. MR/MR shoulder LT wo con IMPRESSION: There is a frayed bursal sided tear of supraspinatus tendon 1 cm from the footprint involving more than half the tendon thickness. There is a second area of shallow fraying of the bursal side of supraspinatus tendon at the footprint. There is hypertrophic tendinopathy involving supraspinatus and infraspinatus tendons. Electronically signed by: Dell Nelson MD 09/16/2025 05:36 PM EST
--- OUTSIDE RECORDS SUMMARY | 2025-09-16 18:01 | XMS_ITS | Encounter Summary ---
Author Organization [employer] Address [address] [facility] 7[address] [place] [address] Care Team Providers Care Director Of Strategic Sourcing Name Role Phone Sepideh Hopkins Primary Care Provider [phone] Vaishali Minor PharmD Unavailable Encounter Details Date Type Department Care Team (Late st Contact Info) Description 10/04/2022 Abstract [facility] ADULT DENTAL [address] [place] [address] Dental, Provider, DDS Social History Tobacco Use [...] 11:00 AM EST Medication Management [facility] MEDICINE [address] [place] [address] Vaishali Minor, PharmD [address] [place] [address] 10/01/2025 9:15 AM EST Office Visit [facility] MEDICINE [address] [place] [phone] Sepideh Hopkins ANP [address] [place] [address] 11/18/2025 11:00 AM EST Telemedicine [facility] CH[facility] MED & PEDS [address] [place] [address] Shanelle Miller, RN [address] [place] [address] 01/02/2026 10:00 AM EST Office Visit [facility] ADULT DENTAL [address] [place] [address] Linsey Dawkins documented as of this encounter [...] filedocumented in this encounter Care Teams Director Of Strategic Sourcing Relationship Specialty Start Date End Date Sepideh Hopkins ANP [address] [place] [address] PCP - General Family Medicine 07/07/20 Vaishali Minor PharmD [address] [place] [address] Pharmacist Internal Medicine 10/29/24 Clarence Perkins Band ManagerDrupal Web Developer 06/24/25 documented as of this encounter
--- OUTSIDE RECORDS SUMMARY | 2025-09-16 18:01 | XMS_ITS | Encounter Summary ---
Author Organization [employer] Address [address] [facility] 7t [place] [address] Care Team Providers Care Industrial Relations Specialist Name Role Phone Sepideh Hopkins Primary Care Provider [phone] Vaishali Minor PharmD Unavailable Encounter Details Date Type Department Care Team (Latest Contact Info) Description 07/23/2022 Abstract [facility] CONVERSIONS Dental, Provider, DDS Social History [...] Description 09/23/2025 11:00 AM EST Medication Management [facility] MEDICINE [address] [place] [address] Vaishali Minor, PharmD [address] [place] [address] 10/01/2025 9:15 AM EST Office Visit [facility] MEDICINE [address] [place] [address] Sepideh Hopkins ANP [address] [place] [address] 11/18/2025 11:00 AM EST Telemedicine [facility] CHC MED & PEDS [address] [place] [address] Shanelle Miller, MENDEL [address] [place] [address] 01/02/2026 10:00 AM EST Office Visit [facility] ADULT DENTAL [address] [place] [address] Linsey Dawkins documented as of this encounter Visit Diagnoses Not on filedocumented in this encounter Care Teams Industrial Relations Specialist Relationship Specialty Start Date End Date Sepideh Hopkins ANP [address] [place] [address] PCP - General Family Medicine 07/07/20 Vaishali Minor PharmD [address] [place] [address] Pharmacist Internal Medicine 10/29/24 Clarence Perkins Loan ReviewerDirector Of Placement 06/24/25 documented as of this encounter
--- OUTSIDE RECORDS SUMMARY | 2025-09-16 18:01 | XMS_ITS | Encounter Summary ---
Author Organization [employer] Address 75 [facility] 7t [place] [address] Care Team Providers Care Physical Therapy Aides Teacher Name Role Phone Sepideh Hopkins JAVI Primary Care Provider [phone] Vaishali Minor PharmD Unavailable [phone] Encounter Details Date Type Department Care Team (Late st Contact Info) Description 01/10/2025 Orders Only [facility] [address] [place], [place] [phone] Provider, MD Jan Social History Tobacco Use [...] Upcoming Encounters Date Type Department Care Team ([facility] st Contact Info) Description 09/23/2025 11:00 AM EST Medication Management [facility] [address] [place] [address] Vaishali Minor, IrwinD [address] [place] [address] 10/01/2025 9:15 AM EST Office Visit [facility] [address] [place] [address] Sepideh Hopkins ANP 230 [place] [address] 11/18/2025 11:00 AM EST Telemedicine [facility] 505 [place] [address] Shanelle Miller, RN 505 [place] [address] 01/02/2026 10:00 AM EST Office Visit [facility] ADULT DENTAL [address] [place] [address] Linsey Dawkins documented as of this encounter [...] as of this encounter Care Teams Physical Therapy Aides Teacher Relationship Specialty Start Date End Date Sepideh Hopkins ANP [address] [place] [address] PCP - General Family Medicine 07/07/20 Vaishali Minor PharmD 230 [place] [address] Pharmacist Internal Medicine 10/29/24 Clarence Perkins Route JumperAir Crew Member 06/24/25 documented as of this encounter
--- OUTSIDE RECORDS SUMMARY | 2025-09-16 18:01 | XMS_ITS | Clinical Summary ---
Author Organization [facility] Facility Address [address] [place] [address] Care Team Providers Care International Bank Manager Name Role Phone Karlos Adame [facility] Primary Care Provider Family History [...] Name Priority Date/Time Associated Diagnosis Comments LAB MARGIN ANALYST Routine 10/19/2017 12:00 AM EST from Last 3 Months or Most Recently Relevant to Health Maintenance Results * Lab Professional Development Director (10/19/2017 12:00 AM EST) Hemoglobin A1C 5.9 % [facility] 10/19/2017 [facility] Conversion LAB [id number] LICITED RESULTS Final Result [facility] from Last 3 Months or Most Recently Relevant to Health Maintenance Insurance Medicaid [place] Care Teams International Bank Manager Relationship Specialty Start Date End Date Karlos Adame FNP [address] [place] [address], 3rd [place] [address] PCP - General 11/17/20
--- OUTSIDE RECORDS SUMMARY | 2025-09-16 18:02 | XMS_ITS | Continuity of Care Document ---
Author Organization [place] - [facility], [facility] Address [address] [place] [phone] Assessment No assessment recorded. Plan of Treatment Reminders Order Date Submit Date Provider Last Modified By Organization Details Last Modified Time Details Appointments None recorded. Lab None recorded. Referral None recorded. Procedures None recorded. Surgeries None recorded. Imaging CT, sinuses, w/o contrast 2024 025 MALLY [facility], [address] [place] [address], [phone], 17:15:00 Medication Orders None recorded. Patient TargetsNo targets recorded. Patient InstructionsNo instructions recorded. Reason for Referral None Reported. Results Created Date Observation Date Name Description Value Unit Range Abnormal Flag Note LastModifiedBy Organization Detail LastModifiedTime 09/03/[address], sinus es, w/o contr ast No observ ation record ed. [email or web address] Ents Of [address], [address], 09/03/2025 15:13:16 09/03/20 25 audio gram No observ ation record ed. BARCODE Not Available 2024 18:40:21 Result Notes None recorded. Problems Name Problem SNOMED Code Status Onset Date Resolution Date Notes Provider Name and Address Organization Details Recorded Time Dizziness and giddiness 603658880 Active 2024 JENNA BENNETT [address], [address], [place] - [facility] [place] 14:35:35 Pain in face 50837708 Active 2024 KENISHA Bowling MD [address] [address], [place], [address], [facility] - [facility] 15:12:20 Maxillary sinusitis 88014831 Active 2024 KENISHA Bowling MD [address] [address], [place], [address], [facility] 15:12:24 Impacted cerumen in right ear 66538874424506 03 Active 2024 KENISHA Bowling MD [address] [address], [place], [address], [facility] 15:14:29 Problem Notes None recorded. Procedures Surgical History Date Name Laterality Status Provider Name and Address Organization Details Recorded Time Cerumen removal without microscope right completed KENISHA GRAHAM MD [address] [place] [address], [phone], [facility] 09/03/2025 15:13:45 NasalEndoscopy_ DP completed KENISHA GRAHAM MD [address] [place] [address], [phone], [facility] 09/03/2025 15:02:56 Air & Speech Audio with Tymps - 35095, 23696 & 79073 completed JENNA BENNETT [address] [place] [address], [address], [facility] 09/03/2025 14:35:25 Imaging Results None recorded. Procedure [...] powder MIX DIRECTED AND TAKE DIRECTED BY [facility] active Not Available Not Available No t [...] Available No t Available [employer] Dagmar 2 [place] USE DIRECTED EVERY 8 HOURS active Not [...] Available No t Available [employer] 3 [place] USE DIRECTED TO TEST BLOOD SUGAR active Not Available Not Available No t Available [employer] Dagmar 2 Plus Sensor device USE DIRECTED active Not Available Not Available No t Available Vitals Date Recorded Body height Body mass index (BMI) Body weight Systolic And Diastolic Provider Name and Address Organization Details Last Updated DateTime 09/03/2025 154.94 cm 28.7 kg/m2 10563.04 g 115/76 mm[Hg] Roosevelt Mclaughlin [place] - [facility] 09/03/2025 14:53:48 Social History None recorded. Functional [...] ICD10 Code Diagnosis IMO Codes Diagnosis Note [id number] KENISHA GRAHAM MD [facility] [address] [address] 09/03/2025 14:18:21 09/03/2025 15:40:06 Dizziness and giddiness 640982917 R42 84227 Right Ear:Normal hearing with excellent speech discrimina tion.Type A tympanogra m.Left Ear:Normal hearing with excellent speech discrimina tion.Type A tympanogra m. Audio was normal Tang Hallpike was normal. I don't feel her dizziness is otologic in nature. I recommend observatio n. Pain in face 31458751 R5 1.9 455778 Maxillary sinusitis 8834 8008 J32.0 5684828 I recommend a CT sinus to see [...] n. Impacted c erumen in right ear 1731405076 995706 H61.21 5107315 Recurrent Cerumen Impactions : Ears were meticulous ly cleaned bilaterall y today with a curette and suction. The patient tolerated this well and will follow up for repeat debridemen t per routine. Health Concerns Section Related Observation LastModified by Organization Detai ls LastModified Time None Recorded Concern Status LastModified by Organization Details LastModified Time None Recorded Payers Encounter Date Sequence Insurance Name Policy Number Policy Wang Covered Member ID Wang Member ID Guarantor Name 09/03/2025 1 [place] [facility] PL[facility] Joelle Escobedo [id number] Joelle Myers Notes Date Note Type Note Provider Name and Address Organization Details Recorded Time 09/03/2025 text/html ROS as noted in the HPI She presents with concern for sinusitis. She has frontal and maxillary facial pain. It usually resolves within a day or two. She had a CT head in January at [place] which showed left maxillary sinusitis. She was put on a prolonged course of abx. She was having dizziness. Her dizziness has improved. She denies room spinning vertigo. She has some current frontal pressure. She does endorse allergy to pollen. She has tried cetirizine and flonase with minimal relief. Audio showed borderline normal hearing. KENISHA GRAHAM MD [address] [place] [address], [place], [address], [facility] - [facility] 09/03/2025 17:12:21 OBGyn Episode No OBEpisode recorded.
--- OUTSIDE RECORDS SUMMARY | 2025-09-16 18:02 | XMS_ITS | Encounter Summary ---
Author Organization [employer] Address [address] [facility] 7t [place] [address] Care Team Providers Care Plan Consultant Name Role Phone Sepideh Hopkins Primary Care Provider [phone] Vaishali Minor PharmD Unavailable [phone] Reason for Visit * Reason Comments Med Refill Encounter Details Date Type Department Care Team ([facility] st Contact Info) Description 02/27/2024 Refill [facility] [address] [place], [place] [phone] Sepideh Hopkins ANP 230 [place] [address] Social History Tobacco Use Types Packs/Day Years [...] 09/23/2025 11:00 AM EST Medication Management [facility] [address] [place] [address] Vaishali Minor PharmD [address] [place] [address] 10/01/2025 9:15 AM EST Office Visit [facility] [address] [place] [address] Sepideh Hopkins ANP [address] [place] [address] 11/18/2025 11:00 AM EST Telemedicine [facility] P[facility] 505 [place] [address] Shanelle Miller, MENDEL 505 [place] [address] 01/02/2026 10:00 AM EST Office Visit [facility] ADULT DENTAL [address] [place] [address] Linsey Dawkins documented as of this encounter Visit Diagnoses Not on filedocumented in this encounter Care Teams Plan Consultant Relationship Specialty Start Date End Date Sepideh Hopkins ANP [address] [place] [address] PCP - General Family Medicine 07/07/20 Vaishali Minor PharmD [address] [place] [address] Pharmacist Internal Medicine 10/29/24 Clarence Perkins Crown Assembly Machine OperatorDisplay Specialist 06/24/25 documented as of this encounter
--- OUTSIDE RECORDS SUMMARY | 2025-09-16 18:02 | XMS_ITS | Encounter Summary ---
Author Organization [employer] Address 75 [facility] 7t [place] [address] Care Team Providers Care Technician Biological Health Name Role Phone Sepideh Hopkins Primary Care Provider [phone] Vaishali Minor PharmD Unavailable Reason for Visit * Reason Comments Med Refill Encounter Details Date Type Department Care Team ([facility] st Contact Info) Description 05/23/2025 Refill [facility] [address] [place], [place] [phone] Sepideh Hopkins ANP 230 [place] [address] History of pulmonary embolism; Diabetic polyneuropathy associated [...] Description 09/23/2025 11:00 AM EST Medication Management [facility] [address] [place] [address] Vaishali Minor, IrwinD 230 [place] [address] 10/01/2025 9:15 AM EST Office Visit [facility] [address] [place] [address] Sepideh Hopkins, ANP [address] [place] [address] 11/18/2025 11:00 AM EST Telemedicine [facility] 505 [place] [address] Shanelle Miller, MENDEL 505 [place] [address] 01/02/2026 10:00 AM EST Office Visit [facility] ADULT DENTAL [address] [place] [address] Linsey Dawkins documented as of this encounter Visit Diagnoses Diagnosis History of pulmonary embolism Personal history of venous thrombosis and embolism Diabetic polyneuropathy associated with type 2 diabetes mellitus (HCC) documented in this encounter Additional Health Concerns Assessment Noted Time PHQ-9 Depression Total Score: 5 11/23/19 25 1:05 PM EST documented as of this encounter Care Teams Technician Biological Health Relationship Specialty Start Date End Date Sepideh Hopkins ANP 230 [place] [address] PCP - General Family Medicine 07/07/20 Vaishali Minor PharmD 230 [place] [address] Pharmacist Internal Medicine 10/29/24 Clarence Perkins Packaging MechanicFur Cleaner 06/24/25 documented as of this encounter
--- OUTSIDE RECORDS SUMMARY | 2025-09-16 18:02 | XMS_ITS | Encounter Summary ---
Author Organization [employer] Address 75 [facility] [address] [place] [address] Care Team Providers Care Ear Nose Throat Surgeon Name Role Phone Sepideh Hopkins Primary Care Provider [phone] Vaishali Minor PharmD Unavailable Reason for Visit * Reason Comments Med Refill Encounter Details Date Type Department Care Team ([facility] Contact Info) Description 01/05/2023 Refill [facility] [address] [place] [address] Sepideh Hopkins ANP [address] [place] [address] Social History Tobacco Use Types Packs/Day Years [...] Upcoming Encounters Date Type Department Care Team ([facility] Contact Info) Description 09/23/2025 11:00 AM EST Medication Management [facility] [address] [place] [address] Vaishali Minor, PharmD 230 [place] [address] 10/01/2025 9:15 AM EST Office Visit [facility] [address] [place] [address] Sepideh Hopkins ANP 230 [place] [address] 11/18/2025 11:00 AM EST Telemedicine [facility] 505 [place] [address] hSanelle Miller, RN 505 [place] [address] 01/02/2026 10:00 AM EST Office Visit [facility] ADULT DENTAL [address] [place] [address] Linsey Dawkins documented as of this encounter Visit Diagnoses Not on filedocumented in this encounter Care Teams Ear Nose Throat Surgeon Relationship Specialty Start Date End Date Sepideh Hopkins ANP [address] [place] [address] PCP - General Family Medicine 07/07/20 Vaishali Minor PharmD [address] [place] [address] Pharmacist Internal Medicine 10/29/24 Clarence Perkins Pharmacy Affairs AssistantSales Person 06/24/25 documented as of this encounter
--- OUTSIDE RECORDS SUMMARY | 2025-09-16 18:02 | XMS_ITS | Encounter Summary ---
Author Organization [employer] Address 75 [facility] 7t h Floor [place] [phone] Care Team Providers Care Pulley Man Name Role Phone Sepideh Hopkins Primary Care Provider [phone] Vaishali Minor PharmD Unavailable Encounter Details Date Type Department Care Team (Late st Contact Info) Description 10/03/2023 Orders Only [facility] [address] [place] [address] Sepideh Hopkins ANP 230 [place] [address] Social History Tobacco Use Types Packs/Day Years [...] Description 09/23/2025 11:00 AM EST Medication Management [facility] [address] [place] [address] Vaishali Minor, PharmD 230 [place] [address] 10/01/2025 9:15 AM EST Office Visit [facility] [address] [place] [phone] Sepideh Hopkins ANP 230 [place] [address] 11/18/2025 11:00 AM EST Telemedicine [facility] 505 [place] [address] Shanelle Miller, RN 505 [place] [address] 01/02/2026 10:00 AM EST Office Visit [facility] ADULT DENTAL 230 [place] [address] Linsey Dawkins documented as of this encounter Visit Diagnoses Not on filedocumented in this encounter Care Teams Pulley Man Relationship Specialty Start Date End Date Sepideh Hopkins ANP [address] [place] [address] PCP - General Family Medicine 07/07/20 Vaishali Minor PharmD [address] [place] [address] Pharmacist Internal Medicine 10/29/24 Clarence Perkins Temperature RegulatorPiano Technician 06/24/25 documented as of this encounter
--- OUTSIDE RECORDS SUMMARY | 2025-09-16 18:02 | XMS_ITS | Encounter Summary ---
Author Organization [employer] Address 75 [facility] 7t [place] [address] Care Team Providers Care Storeroom Attendant Name Role Phone Sepideh Hopkins Primary Care Provider Vaishali Minor PharmD Unavailable Reason for Visit * Reason Onset Date Comments Durable Medical Equipment 06/11/2025 Encounter Details Date Type Department Care Team ([facility] st Contact Info) Description 06/11/2025 Telephone [facility] 230 [place] [address] Sepideh Hopkins ANP [address] [place] [address] Durable Medical Equipment Social History Tobacco Use [...] 06/11/2025 10:28 AM EDT Tc from pt day care attendant Clarence requesting status on walker discussed during office visit with PCP on 05/31. documented in this encounter Plan of Treatment Upcoming Encounters Date Type Department Care Team (Late st Contact Info) Description 09/23/2025 11:00 AM EST Medication Management [facility] [address] [place] [address] Vaishali Minor, PharmD 230 [place] [address] 10/01/2025 9:15 AM EST Office Visit [facility] [address] [place] [address] [place] [address] Sepideh Hopkins ANP 230 [place] [address] 11/18/2025 11:00 AM EST Telemedicine [facility] MED [facility] PEDS 505 [place] [address] Shanelle Miller, RN 505 [place] [address] 01/02/2026 10:00 AM EST Office Visit [facility] ADULT DENTAL 230 [place] [address] Linsey Dawkins documented as of this encounter Visit Diagnoses Not on filedocumented in this encounter Additional Health Concerns Assessment Noted Time PHQ-9 Depression Total Score: 5 11/23/19 25 1:05 PM EST documented as of this encounter Care Teams Storeroom Attendant Relationship Specialty Start Date End Date Sepideh Hopkins ANP [address] [place] [address] PCP - General Family Medicine 07/07/20 Vaishali Minor, IrwinD [address] [place] [address] Pharmacist Internal Medicine 10/29/24 Clarence Perkins Farm Service AdviserLubricating Machine Tender 06/24/25 documented as of this encounter
--- OUTSIDE RECORDS SUMMARY | 2025-09-16 18:02 | XMS_ITS | Encounter Summary ---
Author Organization [employer] Address 75 [facility] 7t [place] [address] Care Team Providers Care Crucible Packer Name Role Phone Sepideh Hopkins Primary Care Provider [phone] Vaishali Minor PharmD Unavailable Reason for Visit * Reason Onset Date Comments Med Refill 09/05/2025 Encounter Details Date Type Department Care Team ([facility] st Contact Info) Description 09/05/2025 Telephone [facility] MED[facility]INE [address] [place] [address] Sepideh Hopkins ANP [address] [place] [address] Med Refill Social History Tobacco Use Types [...] 50 MG tablet To be sent to: [facility] documented in this encounter Plan of Treatment Upcoming Encounters Date Type Department Care Team (Late st Contact Info) Description 09/23/2025 11:00 AM EST Medication Management [facility] [address] [place] [address] Vaishali Minor, PharmD [address] [place] [address] 10/01/2025 9:15 AM EST Office Visit [facility] [address] [place] [address] Sepideh Hopkins, ANP [address] [place] [address] 11/18/2025 11:00 AM EST Telemedicine [facility] MED [facility] PEDS 505 [place] [address] Shanelle Miller, RN [address] [place] [address] 01/02/2026 10:00 AM EST Office Visit [facility] ADULT DENTAL [address] [place] [address] Linsey Dawkins documented as of this encounter Visit Diagnoses Not on filedocumented in this encounter Additional Health Concerns Assessment Noted Time PHQ-9 Depression Total Score: 5 11/23/19 25 1:05 PM EST documented as of this encounter Care Teams Crucible Packer Relationship Specialty Start Date End Date Sepideh Hopkins ANP [address] [place] [address] PCP - General Family Medicine 07/07/20 Vaishali Minor PharmD 230 [place] [address] Pharmacist Internal Medicine 10/29/24 Clarence Perkins Rn Social WorkHistology Manager 06/24/25 documented as of this encounter
--- OUTSIDE RECORDS SUMMARY | 2025-09-16 18:02 | XMS_ITS | Encounter Summary ---
Author Organization [employer] Address 75 [facility] 7t [place] [address] Care Team Providers Care Line Inspector Name Role Phone Sepideh Hopkins JAVI Primary Care Provider [phone] Vaishali Minor PharmD Unavailable Reason for Visit * Reason Onset Date Comments Dr. Angeles case delivery 07/03/2025 Encounter Details Date Type Department Care Team ([facility] st Contact Info) Description 07/03/2025 Telephone [facility] ADULT DENTAL 230 [place] [address] Everett Angeles, DMD [address] [place] [address] Dr. Angeles case delivery Social History Tobacco [...] Angeles was not in office yesterday therefore hotel front desk agent is waiting to see him today to confirm how provider would likke to schedule patient. helpdesk manager will reach out to patient to schedule. documented in this encounter Plan of Treatment Upcoming Encounters Date Type Department Care Team (Late st Contact Info) Description 09/23/2025 11:00 AM EST Medication Management [facility] MED[facility] [address] [place] [address] Vaishali Minor, PharmD 230 [place] [address] 10/01/2025 9:15 AM EST Office Visit [facility] [address] [place] [address] Sepideh Hopkins, ANP [address] [place] [address] 11/18/2025 11:00 AM EST Telemedicine [facility] 505 [place] [address] Shanelle Miller, RN [address] [place] [address] 01/02/2026 10:00 AM EST Office Visit [facility] ADULT DENTAL [address] [place] [address] Linsey Dawkins documented as of this encounter Visit Diagnoses Not on filedocumented in this encounter Additional Health Concerns Assessment Noted Time PHQ-9 Depression Total Score: 5 11/23/19 25 1:05 PM EST documented as of this encounter Care Teams Line Inspector Relationship Specialty Start Date End Date Sepideh Hopkins ANP 230 [place] [address] PCP - General Family Medicine 07/07/20 Vaishali Minor, IrwinD [address] [place] [address] Pharmacist Internal Medicine 10/29/24 Clarence Perkins AgriculturistTravelift Operator 06/24/25 documented as of this encounter
--- OUTSIDE RECORDS SUMMARY | 2025-09-16 18:02 | XMS_ITS | Clinical Summary ---
Author Organization [employer] Address [address] [facility] [address] [place] [address] Care Team Providers Care Oncology Social Work Name Role Phone Neil Bernard JAVI Primary Care Provider [phone] Vaishali Minor PharmD Unavailable [phone] Allergies No known active allergies Medications * [...] by mouth once daily Active sodium chloride (Lea) 0.65 % nasal sprayIndications :Nasal congestion 2 [...] available. 2 each 2 025 2025 Active cholecalciferol VITAMIN D (Vitamin D-3) 50 [...] 4 (four) hours. 18 g 5 Active Tirzepatide (Mounjaro) 5 MG/0.5ML solution auto-injectorInd [...] EVERY MORNING 30 tablet 2 025 Active gabapentin (Neurontin) 300 MG capsuleIndicatio ns:Diabetic polyneuropathy associated with type 2 diabetes mellitus (HCC) TAKE 2 CAPSULES BY MOUTH TWICE DAILY IN THE MORNING AND AT BEDTIME 120 capsule 2 Active Tiotropium [place] (Spiriva HandiHaler) [address] 1 Act into inhaler and inhale Once per day. USE 1 CAPSULE FOR INHALATION ONCE A DAY DO NOT SWALLOW CAPSULE 30 capsule 5 Active Symbicort 160-4.5 MCG/ACT inhaler INHALE 2 PUFFS BY MOUTH TWICE DAILY IN THE MORNING AND AT BEDTIME. RINSE MOUTH AFTER USING. 10.2 g 5 Active fluticasone (Flonase) 50 MCG/ACT nasal sprayIndications :Allergic rhinitis, unspecified seasonality, unspecified trigger SPRAY 1 SPRAY IN EACH NOSTRIL TWICE DAILY 48 g 1 Active traMADol (Ultram) 50 MG tabletIndication s:Chronic bilateral low back pain without sciatica Take 1 tablet (50 mg) by mouth Once daily as needed for severe pain for up to 20 doses. 20 tablet Active apixaban (Eliquis) 2.5 MG tabletIndication s:History of pulmonary embolism TAKE 1 TABLET BY MOUTH TWICE DAILY IN THE MORNING AND IN THE EVENING 60 tablet 3 Active tiotropium (Spiriva HandiHaler) 18 MCG inhalation [...] IN THE EVENING 60 tablet 3 025 2024 Discontinued buPROPion SR (Wellbutrin SR) 100 [...] DAILY NEEDED FOR SEVERE PAIN 20 tablet 2024 Discontinued(R eorder (will not trigger notification [...] Encounters Date Type Department Care Team Description 09/14/2025 Refill [facility] [address] [place] [address] [phone] Neil Bernard ANP History of pulmonary embolism 09/05/2025 Refill [facility] [address] [place] [address] Shanelle Miller RN Chronic bilateral low back pain without sciatica 09/05/2025 Telephone [facility] [address] [place] [address] 53538 Neil Bernard ANP Med Refill 08/30/2025 10:30 AM EDT Clinical Support [facility] [address] [place] [address] [phone] Shanelle Miller RN Chronic bilateral low back pain without sciatica (Primary Dx) 08/30/2025 Telephone [facility] [address] [place] [address] Shanelle Miller RN 08/30/2025 Travel 08/27/2025 1:00 PM EDT Office Visit [facility] [address] [place] [address] Jess Harris CNP Chronic bilateral low back pain without sciatica 08/27/2025 Travel 08/26/2025 Telephone [facility] [address] [place] [phone] Neil Bernard ANP Imaging Orders 08/21/2025 Refill [facility] [address] [place] [address] [phone] Neil Bernard ANP Mixed anxiety and depressive disorder; Diabetic polyneuropathy associated with type 2 diabetes mellitus (HCC); Allergic rhinitis, unspecified seasonality, unspecified trigger 08/20/2025 Refill [facility] [address] [place] [address] [phone] Dina Kulkarni MD Allergic rhinitis, unspecified seasonality, unspecified trigger 08/13/2025 Telephone [facility] [address] [place] [address] [phone] Neil Bernard ANP Results 08/07/2025 Travel 08/06/2025 9:30 AM EDT Office Visit [facility] [address] [place] [address] 14784 Ramez Schroeder MD Hospital discharge follow-up (Primary Dx); Acute pain of left shoulder; Moderate persistent asthma without complication; Encounter for immunization 08/06/2025 Refill [facility] [address] [place] [address] Shanelle Miller RN Chronic bilateral low back pain without sciatica 08/06/2025 Refill [facility] [address] [place] [address] 524[address] Neil Bernard ANP Chronic bilateral low back pain without sciatica 08/06/2025 Travel 08/05/[address] [address] Neil Bernard ANP Med Refill 08/05/[address] [address] Ramez Schroeder MD chart prep 07/31/2025 Telephone [facility] [address] [place] [phone] Vaishali Minor PharmD Triage 07/30/[address] [address] Vaishali Minor PharmD Call back request 07/26/[address] [address] Vaishali Minor, PharmD 07/25/2025 Telephone [facility] [place] [address] Veronica Gupta, MENDEL Hospital Follow-up 07/23/2025 10:20 AM EDT Office Visit [facility] [place] [address] Nancy Ma MD Unstable angina ([facility]) (Primary Dx); Chest pain, unspecified type 07/23/2025 Orders Only [facility] External Provider, [facility] 07/23/2025 Telephone [facility] [place] [address] Adrianna Hammonds RN 07/23/2025 Travel 07/22/2025 Travel 07/19/2025 Telephone [facility] [place] [address] Neil Bernard ANP nov recall 07/19/2025 Results Follow-Up [facility] [place] [address] Neil Bernard ANP Culture, Urine, Routine 07/19/2025 Orders Only [facility] [place] [address] Neil Bernard ANP Hypomagnesemia (Primary Dx) 07/05/2025 1:00 PM EDT Office [facility] [place] [address] Everett Angeles, YENI 07/03/2025 2:30 PM EDT Office Visit [facility] [address] [facility] [place] [address] Everett Angeles, YENI 07/03/2025 Telephone [facility] [address] [place] [address] Everett Angeles, DMD Dr. Angeles case delivery 06/28/2025 Telephone [facility] [place] [address] Sharon Garrison, senior portfolio manager Directions 06/28/2025 Orders Only [facility] [place] [address] Neil Bernard ANP Hypomagnesemia (Primary Dx) 06/27/2025 3:30 PM EDT Office Visit [facility] [address] [facility] [place] [address] Everett Angeles DMD 06/27/2025 Telephone [facility] [address] [facility] [place] [address] Neil Bernard ANP Critical Magnesium 06/27/2025 Refill [facility] [address] [place] [address] Neil Bernard ANP Chronic bilateral low back pain without sciatica 06/26/2025 Refill [facility] [address] [place] [address] Neil Bernard ANP Chronic bilateral low back pain without sciatica 06/24/2025 3:00 PM EDT Office Visit [facility] [address] [facility] [place] [address] Raysa Sneed 06/24/2025 Telephone [facility] [address] [place] [address] Neil Bernard ANP Care Coordination (ICP Care Plan) 06/24/2025 Telephone [facility] [address] [place] [address] Everett Angeles DMD 06/21/2025 11:00 AM EDT Office Visit [facility] [address] [facility] [place] [address] Everett Angeles, YENI 06/21/2025 Results Follow-Up [facility] [address] [place] [address] Neil Bernard ANP Magnesium 06/21/2025 Telephone [facility] [address] [place] [address] Neil Bernard ANP CRITICAL LAB 06/21/2025 Refill [facility] [address] [place] [address] Neil Bernard ANP Neck pain 06/19/2025 Refill [facility] [address] [place] [address] Vaishali Minor, Leonidas Type 2 diabetes mellitus with hyperlipidemia (CMS/HCC) (CMS/HCC) 06/17/2025 Orders Only [facility] [address] [place] [address] Neil Bernard ANP Hypomagnesemia (Primary Dx) 06/17/2025 Travel from Last 3 Months Immunizations Immunization Administration [...] the past 12 months, has t he [employer], gas, oil or water company threatened to [...] Description 09/23/2025 11:00 AM EST Medication Management [facility] [address] [place] [address] Vaishali Minor, PharmD [address] [place] [address] 10/01/2025 9:15 AM EST Office Visit [facility] [address] [place] [address] Neil Bernard, ANP [address] [place] [address] 11/18/2025 11:00 AM EST Telemedicine [facility] [address] [place] [address] Shanelle Miller, RN [address] [place] [address] 01/02/2026 10:00 AM EST Office Visit [facility] [address] [place] [address] Linsey Dawkins Health Maintenance Due Date Last [...] history exists Depression Screening 11/23/2025 11/23/2024, 11/23/19 25 Lipid Panel 12/17/2025 12/17/2024, 11/09, 01/27/2022, Additional history exists Dental Prophylaxis 12/26/2025 06/24/2025, 11/14/2024 Colonoscopy 01/09/2026 01/09/2025, 04/15/2015 Colorectal Cancer Screening 01/09/2026 Disability Screening 05/31/2026 05/31/2025 Mammogram 06/11/2026 06/11/2025, 03/2025, 06/06/2024, Additional history exists Tobacco Screening 08/27/2026 [...] Procedure Name Priority Date/Time Associated Diagnosis Comments MR SHOULDER WO CONTRAST LEFT Routine 09/16/2025 4:30 PM EST Chronic bilateral low back pain without sciatica POCT JAMES-14 URINE DRUG SCREEN Routine 08/30/2025 [...] 06/11/2025 10:30 AM EDT Breast pain, left HM COLONOSCOPY [...] Recently Relevant to Health Maintenance Results * MR Shoulder w/o Contrast Left (09/16/2025 4:30 PM EST) Anatomical Region Laterality Modality Upper Extremities, Shoulder Left Magn etic Resonance 09/16/2025 4:30 PM EST Narrative 09/16/2025 5:39 PM EST [place] [address] Magnetic Resonance Report Signed Patient: Joelle Myers I MR#: [id number] : 1960 Acct:[id number] Age/Sex: 65 / F ADM Date: 09/16/25 Loc: HO.MRI Attending Dr: Jess Harris PROPOSAL REVIEW ANALYST Ordering Physician: Jess Harris NP Date of Service: 09/16/25 Procedure(s): MR shoulder LT wo con Accession Number(s): [id number] cc: [facility]; Jess Harris NP Reason for Exam: chronic L shoulder pain hx of injury EXAMINATION: MRI Shoulder without contrast, left TECHNIQUE: Multiplanar multisequence MR imaging through an upper extremity joint without contrast. INDICATION: Left shoulder pain for 3 months radiating down the arm, and reports sleep PRIOR: X-ray on 08/06/2025 FINDINGS: Rotator Cuff: There is bursal surface fraying of supraspinatus tendon at the footprint involving less than half the tendon thickness. 1 cm from the footprint, there is fluid signal tracking into the bursal side of supraspinatus tendon involving more than half the tendon thickness. Supraspinatus and infraspinatus tendons are thickened with increased signal. Labrum: Intact Long biceps tendon: The long biceps tendon is intact and not displaced from the groove. Acromioclavicular joint: AC joint is intact and not degenerated. Acromial morphology is flat, type I. There is a small amount fluid in subacromial subdeltoid bursa. Axillary pouch: The axillary pouch is intact. Articular cartilage: There are no articular cartilage defects. Bones/Marrow: There are no marrow replacing lesions. Soft tissues: There is no muscle edema, atrophy, or fatty streaking. MR/MR shoulder LT wo con IMPRESSION: There is a frayed bursal sided tear of supraspinatus tendon 1 cm from the footprint involving more than half the tendon thickness. There is a second area of shallow fraying of the bursal side of supraspinatus tendon at the footprint. There is hypertrophic tendinopathy involving supraspinatus and infraspinatus tendons. Electronically signed by: Dell Nelson MD 09/16/2025 05:36 PM [facility] Dictated By: Dell Nelson MD Signed By: <Electronically signed by Dell Nelson MD in OV> 09/16/25 1736 DD/ 1630 TD/TT: 09/16/25 1655 Glove Stitcher: Procedure Note Donotuseinterpreter, Image - 09/16/2025 [place] [address] Magnetic Resonance Report Signed Patient: Joelle Myers [facility]#: [id number] : 1960cct:[id number] Age/Sex: 65 / FADM Date: 09/16/25 Loc: HO.MRI Attending Dr: Jess Harris NP Ordering Physician: Jess Harris NP Date of Service: 09/16/25 Procedure(s): MR shoulder LT wo con Accession Number(s): [id number] cc: [facility]; Jess Harris NP Reason for Exam: chronic L shoulder pain hx of injury EXAMINATION: MRI Shoulder without contrast, left TECHNIQUE: Multiplanar multisequence MR imaging through an upper extremity joint without contrast. INDICATION: Left shoulder pain for 3 months radiating down the arm, and reports sleep PRIOR: X-ray on 08/06/2025 FINDINGS: Rotator Cuff: There is bursal surface fraying of supraspinatus tendon at the footprint involving less than half the tendon thickness. 1 cm from the footprint, there is fluid signal tracking into the bursal side of supraspinatus tendon involving more than half the tendon thickness. Supraspinatus and infraspinatus tendons are thickened with increased signal. Labrum: Intact Long biceps tendon: The long biceps tendon is intact and not displaced from the groove. Acromioclavicular joint: AC joint is intact and not degenerated. Acromial morphology is flat, type I. There is a small amount fluid in subacromial subdeltoid bursa. Axillary pouch: The axillary pouch is intact. Articular cartilage: There are no articular cartilage defects. Bones/Marrow: There are no marrow replacing lesions. Soft tissues: There is no muscle edema, atrophy, or fatty streaking. MR/MR shoulder LT wo con IMPRESSION: There is a frayed bursal sided tear of supraspinatus tendon 1 cm from the footprint involving more than half the tendon thickness. There is a second area of shallow fraying of the bursal side of supraspinatus tendon at the footprint. There is hypertrophic tendinopathy involving supraspinatus and infraspinatus tendons. Electronically signed by: Dell Nelson MD 09/16/2025 05:36 PM [facility] [place] Dictated By: Dell Nelson MD Signed By: <Electronically signed by Dell Nelson MD in OV> 09/16/25 1736 DD/ 1630 TD/TT: 09/16/25 1655 Glove Stitcher: [facility] MRI PROCEDURES Edited Result - Final * (ABNORMAL) POCT JAEMS-14 Urine Drug Screen (08/30/2025 10:41 AM EDT) [...] - 08/30/2025 10:41 AM EDT .UTOX cup Lot#[id number] Exp. 08/13/26 Internal Pass Control us Neil CALDWELL POINT OF CARE TEST ENTER/EDIT OR DERABLES Final Result * XR Humerus Left (08/06/2025 10:30 AM EDT) Anatomical Region Laterality Modality Upper Extremities, Humerus Left Radio graphic Imaging 08/06/2025 10:3 0 AM EDT Narrative 08/06/2025 10:38 [place] [address] XRay Report Signed Patient: Joelle Myers I MR#: [id number] 426 : 1960 Acct:[id number] Age/Sex: 65 / F ADM Date: 08/06/25 Loc: HO.HHCX Attending Dr: Ramez Newman MD Ordering Physician: Ramez Newman MD Date of Service: 08/06/25 Procedure(s): XR humerus LT Accession Number(s): [id number] cc: Ramez Newman MD; NEIL BERNARD NP [...] 08/06/25 1036 DD/ 1030 TD/TT: 08/06/25 1031 Glove Stitcher: Procedure Note Donotuseinterpreter, Image - 08/06/[address] [address] XRay Report Signed Patient: Joelle Myers IMR#: [id number] : 1960cct:[id number] Age/Sex: 65 / FADM Date: 08/06/25 Loc: HO.HHCX Attending Dr: Ramez Newman MD Ordering Physician: Ramez Newman MD Date of Service: 08/06/25 Procedure(s): XR humerus LT Accession Number(s): [id number] cc: Ramez Newman MD; NEIL BERNARD NP [...] 08/06/25 1036 DD/ 1030 TD/TT: 08/06/25 1031 Glove Stitcher: Ramez Perkins MD IMG XR PROCEDURES Quentin laura Result - Final * XR Shoulder 2+ Views Left (08/06/2025 10:30 AM EDT) Anatomical Region Laterality Modality Upper Extremities, Shoulder Left Radi ographic Imaging 08/06/2025 10:3 0 AM EDT Narrative 08/06/2025 10:39 AM EDT [address] [address] XRay Report Signed Patient: Joelle Myers I MR#: [id number] 426 : 1960 Acct:[id number] Age/Sex: 65 / F ADM Date: 08/06/[facility]: Ramez Newman MD Ordering Physician: Ramez Newman MD Date of Service: 08/06/25 Procedure(s): XR shoulder LT min 2V Accession Number(s): [id number] cc: Ramez Newman MD; NEIL BERNARD NP [...] 08/06/25 1036 DD/ 1030 TD/TT: 08/06/25 1031 Glove Stitcher: Procedure Note Opal Turpin - 08/06/[address] [address] XRay Report Signed Patient: Joelle Myers IMR#: [id number] : 1960cct:[id number] Age/Sex: 65 / FADM Date: 08/06/25 Loc: HO.HHCX Attending Dr: Ramez Newman MD Ordering Physician: Ramez Newman MD Date of Service: 08/06/25 Procedure(s): XR shoulder LT min 2V Accession Number(s): [id number] cc: Ramez Newman MD; NEIL BERNARD NP [...] 08/06/25 1036 DD/ 1030 TD/TT: 08/06/25 1031 Glove Stitcher: Ramez Perkins MD IMG XR PROCEDURES Quentin laura Result - Final * (ABNORMAL) POCT glucose manually resulted (08/06/2025 10:05 AM EDT) Glucose Blood, POC 332(A) 60 - 200 mg/dL QC Media Lot # [id number] Lot# Expiration Date 2225, Blood Capillary blood specimen / Unknown 08/06/2025 10:05 AM EDT Ramez Perkins MD POINT OF CARE TEST EN TER/EDIT ORDERABLES Final Result * (ABNORMAL) POCT glycosylated hemoglobin (Hgb A1c) (08/06/2025 10:04 AM EDT) Hemoglobin A1C 8.4(A) 4.0 - 5.7 % QC Media Lot # [id number] Lot# Expiration Date 242, Blood Capillary blood specimen / Unknown 08/06/2025 10:04 AM EDT Ramez Perkins MD POINT OF CARE TEST EN TER/EDIT ORDERABLES Final Result * NM heart perfusion SPECT stress and rest (07/24/2025 8:55 AM EDT) Anatomical Region Laterality Modality Body Nuclear Medicine 07/24/2025 8:55 AM EDT Narrative 07/24/2025 12:32 PM EDT [place] [address] Nuclear Medicine Report Signed Patient: Joelle Myers I MR#: [id number] 426 : 1960 Acct:[id number] Age/Sex: 65 / F ADM Date: 07/23/25 Loc: [facility]: Georgette Cohen MD Ordering Physician: Rashid Recinos MD Date of Service: 07/24/25 Procedure(s): NM ramon perf SPECT rest str Accession Number(s): [id number] cc: NEIL BERNARD PROPOSAL REVIEW ANALYST; Rashid Recinos MD Reason for Exam: chest [...] 07/24/25 1230 DD/ 0855 TD/TT: 07/24/25 1115 Glove Stitcher: Procedure Note Donotuseinterpreter, Image - 07/24/[address] [address] Nuclear Medicine Report Signed Patient: Joelle Myers IMR#: [id number] : 1960cct:[id number] Age/Sex: 65 / FADM Date: 07/23/25 Loc: .[facility]-[address]: Georgette Cohen MD Ordering Physician: Rashid Recinos MD Date of Service: 07/24/25 Procedure(s): NM ramon perf SPECT rest str Accession Number(s): [id number] cc: NEIL BERNARD NP; Rashid Recinos MD [...] 07/24/25 1230 DD/ 0855 TD/TT: 07/24/25 1115 Glove Stitcher: [facility] External Provider IMG NM PROCEDURES Edited [...] 2:37 PM EDT 06/27/2025 4:25 PM EDT Comment:CC Narrative [facility] - 06/29/2025 10:59 AM EDT Urine Culture No growth. Specimen Source: Urine clean catch Neil Bernard [facility]CRO[facility]OLOG[facility] - GENERAL ORDER [place] Final Result Performing Organization Address City/[facility] Co de Phone Number [facility] [address] [place] [phone] * (ABNORMAL) Magnesium (06/27/2025 2:37 PM EDT) Only the most recent of2 resultswithin the time period is included. Magnesium 1.2(LL) 1.6 - 2.6 mg/dL [facility] Comment:Critical value for t est(s):MAGS Results called to and readback by:DEBBIE Jones Person calling: ISVSSF Date: [id number]:1700 Blood Venous blood specimen / Unknown 06/27/2025 2:37 PM EDT 06/27/2025 4:20 PM EDT Neli Bernard ANP LAB BLOOD ORDERABLES Final Resul t [facility] [address] [place] [address] [phone] * BI US Breast Limited Left (06/11/2025 10:30 AM EDT) Anatomical Region Laterality Modality Breast Left Ultrasound 06/11/2025 10:3 0 AM EDT Narrative 06/11/2025 10:[address]T [address] [place] [address] Ultrasound Report Signed Patient: Joelle Myers I MR#: [id number] 426 : 1960 Acct:[id number] Age/Sex: 64 / F ADM Date: 06/11/25 Loc: HO.MAMMO Attending Dr: Neil Bernard NP Ordering Physician: NEIL BERNARD NP Date of Service: 06/11/25 Procedure(s): US breast LT limited Accession Number(s): [id number] cc: NEIL BERNARD NP EXAMINATIONS: 1. MM [...] Otero MD 06/11/2025 10:56 AM EDT RP Dictated By: Lon Otero MD Signed By: <Electronically signed by Lon Otero MD in OV> 06/11/25 1056 DD/ 1030 TD/TT: 06/11/25 1049 Glove Stitcher: Procedure Note Donotuseinterpreter, Image - [facility]/11/20[facility] [address] [place] [address] Ultrasound Report Signed Patient: Joelle Myers IMR#: [id number] : 1960cct:[id number] Age/Sex: 64 / FADM Date: 06/11/25 Loc: HO.MAMMO Attending Dr: Neil Bernard NP Ordering Physician: NEIL BERNARD NP Date of Service: 06/11/25 Procedure(s): US breast LT limited Accession Number(s): [id number] cc: NEIL BERNARD NP EXAMINATIONS: 1. MM [...] 06/11/25 1056 DD/ 1030 TD/TT: 06/11/25 1049 Glove Stitcher: Neil CALDWELL [employer]Kings US PROCEDURES Edited Result - Final * Hm Colonoscopy (01/09/2025 8:51 AM EST) Historical Provider HEALTH MAINTENANCE Final Result * Lipid Panel, Standard (12/17/2024 6:58 AM EST) Triglycerides 58 <150 mg/dL [facility] Comment:Desirable Triglyceri de: less than 150 mg/dLBorderline High Triglyceride 150-199 mg/dLHigh Triglyceride: 200-499 mg/dLVery High Triglyceride: greater than or equal to 5OO mg/dL Cholesterol 106 <200 mg/dL [facility] Comment:Desirable Cholestero l: less than 200 mg/dLBorderline High Cholesterol: 200-239 mg/dLHigh Cholesterol: greater than 239 mg/dL LDL Cholesterol Calculated 45 <100 mg/dL [facility] Comment:Desirable LDL: less than 100 mg/dLNear Optimal/Above Optimal LDL: 110- 129 mg/dLBorderline High LDL: 130-159 mg/dLHigh LDL: 160-189 mg/dLVery High LDL: greater than or equal to 190 mg/dL HDL Cholesterol 50 >40 mg/dL [facility] Comment:Desirable HDL: great er than 40 mg/dL Note: This HDL assay may give artificially low results in patients with liver disease. 12/17/2024 6:58 AM EST 12/17/2024 6:58 AM EST Neil Bernard ANP LAB BLOOD ORDERABLES Final Resul t Performing Organization Address [facility] de Phone Number [facility] [address] [place] [phone] * Albumin, Random Urine W/Creatinine (10/12/2024 9:52 AM EST) Creatinine, Urine 41.64 mg/dL [facility] Microalbumin Urine 6.0 mg/L [facility] Microalbum Creatinine Ratio Ur 14.4 <30 ug/mg cr [facility] Comment:Albumin/Creatinine R atio Reference Ranges: Normal: < 30 ug/mg creatinine Microalbuminuria: 30 - 300 ug/mg creatinineClinical Albuminuria: > 300 ug/mg creatinine Urine (Urine, Random) 10/12/2024 9:52 AM EST 10/12/2024 10:49 AM EST us Neil Bernard ANP LAB URINE ORDERABLES Final Resul t Performing Organization Address [facility] Co de Phone Number [facility] [address] [place] [phone] from Last 3 Months or Most Recently Relevant to Health Maintenance Insurance [facility] C3 DENTAL-[facility] MEDICAID STAND ADULT Care Teams Oncology Social Work Relationship Specialty Start Date End Date Neil Bernard ANP [address] [place], [place] [phone] PCP - General Family Medicine 07/07/20 Vaishali Minor PharmD [address] [place] [address] Pharmacist Internal Medicine 10/29/24 Clarence Perkins Laundry WorkerSolvent Station Attendant 06/24/25
--- OUTSIDE RECORDS SUMMARY | 2025-09-16 18:02 | XMS_ITS | Encounter Summary ---
Author Organization [employer] Address 75 [facility] 7t [place] [address] Care Team Providers Care Shift Commander Name Role Phone Sepideh Hopkins JAVI Primary Care Provider [phone] Vaishali Minor PharmD Unavailable Reason for Visit * Reason Onset Date Comments Appointment 12/08/2022 Patient called i n inquiring about RCT appt with Pasquale. Encounter Details Date Type Department Care Team ([facility] Contact Info) Description 12/08/2022 Telephone [facility] CHC ADULT DENTAL [address] [place], [place] [phone] Gregorio Giordano, ANNIES 505 [place], [place] [phone] Appointment (Patient called in inquiring about RCT [...] Medication Management [facility] MEDICINE [address] [place] [address] Vaishali Minor PharmD 230 [place] [address] 10/01/2025 9:15 AM EST Office Visit [facility] MEDICINE [address] [place] [address] Sepideh Hopkins ANP 230 [place] [address] 11/18/2025 11:00 AM EST Telemedicine [facility] CHC MED & PEDS [address] [place], [place] [phone] Shanelle Miller, RN 505 [place] [address] 01/02/2026 10:00 AM EST Office Visit [facility] ADULT DENTAL [address] [place] [address] Linsey Dawkins documented as of this encounter Visit Diagnoses Not on filedocumented in this encounter Care Teams Shift Commander Relationship Specialty Start Date End Date Sepideh Hopkins ANP [address] [place] [address] PCP - General Family Medicine 07/07/20 Vaishali Mionr PharmD [address] [place] [address] Pharmacist Internal Medicine 10/29/24 Clarence Perkins Box EstimatorHealth Service Coordinator 06/24/25 documented as of this encounter
--- OUTSIDE RECORDS SUMMARY | 2025-09-16 18:02 | XMS_ITS | Encounter Summary ---
Author Organization [employer] Address 75 [facility] 7t [place] [address] Care Team Providers Care Reliability Manager Name Role Phone Sepideh Hopkins Primary Care Provider [phone] Vaishali Minor PharmD Unavailable Reason for Visit * Reason Comments Med Refill Encounter Details Date Type Department Care Team (Late st Contact Info) Description 06/16/2023 Refill [facility] MEDICINE [address] [place] [address] Tisha Cornelius FNP Social History Tobacco Use [...] Description 09/23/2025 11:00 AM EST Medication Management [facility] MEDICINE [address] [place] [address] Vaishali Minor, PharmD 230 [place] [address] 10/01/2025 9:15 AM EST Office Visit [facility] MEDICINE [address] [place] [address] Sepideh Hopkins ANP 230 [place] [address] 11/18/2025 11:00 AM EST Telemedicine [facility] CHC MED & PEDS 505 [place] [address] Shanelle Miller, RN 505 [place] [address] 01/02/2026 10:00 AM EST Office Visit [facility] ADULT DENTAL 230 [place] [address] Linsey Dawkins documented as of this encounter Visit Diagnoses Not on filedocumented in this encounter Care Teams Reliability Manager Relationship Specialty Start Date End Date Sepideh Hopkins ANP 230 [place] [address] PCP - General Family Medicine 07/07/20 Vaishali Minor PharmD 230 [place] [address] Pharmacist Internal Medicine 10/29/24 Clarence Perkins Recovery EngineerMixing Supervisor 06/24/25 documented as of this encounter
--- OUTSIDE RECORDS SUMMARY | 2025-09-16 18:02 | XMS_ITS | Encounter Summary ---
Author Organization [employer] Address 75 [facility] 7t [place] [address] Care Team Providers Care Pump Stitcher Name Role Phone Sepideh Hopkins Primary Care Provider [phone] Vaishali Minor PharmD Unavailable Reason for Visit * Reason Comments Med Refill Encounter Details Date Type Department Care Team ([facility] st Contact Info) Description 06/27/2025 Refill [facility] CHC MED & PEDS [address] [place], [place] [phone] Sepideh Hopkins ANP 230 [facility] [place] [address] Chronic bilateral low back pain without sciatica [...] Description 09/23/2025 11:00 AM EST Medication Management [facility] [address] [place] [address] Vaishali Minor, PharmD [address] [place] [address] 10/01/2025 9:15 AM EST Office Visit [facility] [address] [place] [address] Sepideh Hopkins ANP 230 [place] [address] 11/18/2025 11:00 AM EST Telemedicine [facility] CH[facility] MED & PEDS 505 [place] [address] Shanelle Miller, MENDEL 505 [place] [address] 01/02/2026 10:00 AM EST Office Visit [facility] ADULT DENTAL [address] [place] [address] Linsey Dawkins documented as of this encounter Visit Diagnoses Diagnosis Chronic bilateral low back pain without sciatica documented in this encounter Additional Health Concerns Assessment Noted Time PHQ-9 Depression Total Score: 5 11/23/19 25 1:05 PM EST documented as of this encounter Care Teams Pump Stitcher Relationship Specialty Start Date End Date Sepideh Hopkins ANP 230 [place] [address] PCP - General Family Medicine 07/07/20 Vaishali Mionr PharmD 230 [place] [address] Pharmacist Internal Medicine 10/29/24 Clarence Perkins Vacuum Drier OperatorGlobal Supply Chain Director 06/24/25 documented as of this encounter
--- OUTSIDE RECORDS SUMMARY | 2025-09-16 18:02 | XMS_ITS | Encounter Summary ---
Author Organization [employer] Address 75 [facility] 7t [place] [address] Care Team Providers Care Systems Analysis Manager Name Role Phone Sepideh Hopkins Primary Care Provider [phone] Vaishali Minor PharmD Unavailable Reason for Visit * Reason Onset Date Comments Med Refill 08/05/2025 Encounter Details Date Type Department Care Team ([facility] st Contact Info) Description 08/05/2025 Telephone [facility] MEDICINE 230 [place], [place] [phone] Sepideh Hopkins ANP 230 [place] [address] Med Refill Social History Tobacco Use Types [...] 50 MG tablet To be sent to: [facility] [place], [place] - [address] [place] [address] documented in this encounter Plan of Treatment Upcoming Encounters Date Type Department Care Team ([facility] st Contact Info) Description 09/23/2025 11:00 AM EST Medication Management [facility] MEDICINE [address] [place] [address] Vaishali Minor, PharmD [address] [place] [address] 10/01/2025 9:15 AM EST Office Visit [facility] MEDICINE [address] [place] [address] Sepideh Hopkins, ANP [address] [place] [address] 11/18/2025 11:00 AM EST Telemedicine [facility] CHC MED & PEDS 505 [place] [address] Shanelle Miller, RN 505 [place] [address] 01/02/2026 10:00 AM EST Office Visit [facility] ADULT DENTAL 230 [place] [address] Linsey Dawkins documented as of this encounter Visit Diagnoses Not on filedocumented in this encounter Additional Health Concerns Assessment Noted Time PHQ-9 Depression Total Score: 5 11/23/19 25 1:05 PM EST documented as of this encounter Care Teams Systems Analysis Manager Relationship Specialty Start Date End Date Sepideh Hopkins ANP 230 [place] [address] PCP - General Family Medicine 07/07/20 Vaishali Minor PharmD 230 [place] [address] Pharmacist Internal Medicine 10/29/24 Clarence Perkins [employer] RepChild Development Professor 06/24/25 documented as of this encounter
--- OUTSIDE RECORDS SUMMARY | 2025-09-16 18:02 | XMS_ITS | Encounter Summary ---
Author Organization [employer] Address 75 [facility] 7t [place] [address] Care Team Providers Care Engineering And Development Director Name Role Phone Sepideh Hopkins Primary Care Provider [phone] Vaishali Minor PharmD Unavailable [phone] Encounter Details Date Type Department Care Team ([facility] st Contact Info) Description 05/02/2025 Orders Only [facility] MEDICINE 230 [place] [address] Sepideh Hopkins ANP 230 [place] [address] Social History Tobacco Use Types Packs/Day Years [...] 09/23/2025 11:00 AM EST Medication Management [facility] MEDICINE [address] [place] [address] Vaishali Minor, PharmD 230 [place] [address] 10/01/2025 9:15 AM EST Office Visit [facility] MEDICINE [address] [place] [address] Sepideh Hopkins ANP 230 [place] [address] 11/18/2025 11:00 AM EST Telemedicine [facility] CHC MED & PEDS 505 [place] [address] Shanelle Miller, RN 505 [place] [address] 01/02/2026 10:00 AM EST Office Visit [facility] ADULT DENTAL 230 [place] [address] Linsey Dawkins documented as of this encounter Visit Diagnoses Not on filedocumented in this encounter Additional Health Concerns Assessment Noted Time PHQ-9 Depression Total Score: 5 01/17/20 25 1:05 PM EST documented as of this encounter Care Teams Engineering And Development Director Relationship Specialty Start Date End Date Sepideh Hopkins ANP 230 [place] [address] PCP - General Family Medicine 07/07/20 Vaishali Minor PharmD 230 [place] [address] Pharmacist Internal Medicine 10/29/24 Clarence Perkins Bagman/WomanWallcovering Hanger 06/24/25 documented as of this encounter
--- OUTSIDE RECORDS SUMMARY | 2025-09-16 18:02 | XMS_ITS | Data Portability ---
Author Organization [place] [facility], Allergy Address [address] [place] [phone] Assessment No assessment recorded. Plan of Treatment Reminders Order Date Submit Date Provider Last Modified By Organization Details Last Modified Time Details Appointments None recorded. Lab None recorded. Referral None recorded. Procedures None recorded. Surgeries None recorded. Imaging CT, sinuses, w/o contrast 2024 025 MALLY [facility] [address], [address], 17:15:00 Medication Orders None recorded. Patient TargetsNo targets recorded. Patient InstructionsNo instructions recorded. Reason for Referral None Reported. Results Created Date Observation Date Name Description Value Unit Range Abnormal Flag Note LastModifiedBy Organization Detail LastModifiedTime 09/03/[address], sinus es, w/o contr ast No observ ation record ed. [email or web address] [facility] Of [address], [address], 09/03/2025 15:13:16 09/03/20 25 audio gram No observ ation record ed. BARCODE Not Available 2024 18:40:21 Result Notes None recorded. Problems Name Problem SNOMED Code Status Onset Date Resolution Date Notes Provider Name and Address Organization Details Recorded Time Dizziness and giddiness 415005938 Active 2024 JENNA BENNETT [address], [address], [facility] - [facility] 14:35:35 Pain in face 83420815 Active 2024 KENISHA Bowling MD [address] [address], [place], [address], [place] - [facility] 15:12:20 Maxillary sinusitis 84398388 Active 2024 KENISHA Bowling MD [address] [address], [place], [address], [facility] - [facility] 15:12:24 Impacted cerumen in right ear 36381931310088 03 Active 2024 KENISHA Bowling MD [address] [address], [place], [address], [facility] 15:14:29 Problem Notes None recorded. Procedures Surgical History Date Name Laterality Status Provider Name and Address Organization Details Recorded Time Cerumen removal without microscope right completed KENISHA GRAHAM MD [address], [address], [facility] 09/03/2025 15:13:45 NasalEndoscopy_ DP completed KENISHA GRAHAM MD [address], [address], [facility] 09/03/2025 15:02:56 Air & Speech Audio with Tymps - 34326, 63290 & 54988 completed JENNA BENNETT [address] [place] [address], [address], [facility] 09/03/2025 14:35:25 Imaging Results None recorded. Procedure [...] powder MIX DIRECTED AND TAKE DIRECTED BY [facility] active Not Available Not Available No t [...] Available No t Available Free[employer] Dagmar 2 [place] USE DIRECTED EVERY 8 HOURS active Not [...] Available No t Available [employer] Dagmar 3 [place] USE DIRECTED TO TEST BLOOD SUGAR active Not Available Not Available No t Available [employer] Dagmar 2 Plus Sensor device USE DIRECTED active Not Available Not Available No t Available Vitals Date Recorded Body height Body mass index (BMI) Body weight Systolic And Diastolic Provider Name and Address Organization Details Last Updated DateTime 09/03/2025 154.94 cm 28.7 kg/m2 35841.04 g 115/76 mm[Hg] Roosevelt Mclaughlin [place] [facility] 09/03/2025 14:53:48 Social History None recorded. Functional [...] ICD10 Code Diagnosis IMO Codes Diagnosis Note [id number] KENISHA GRAHAM MD [facility] [address] [address] 09/03/2025 14:18:21 09/03/2025 15:40:06 Dizziness and giddiness 315156147 R42 69800 Right Ear:Normal hearing with excellent speech discrimina tion.Type A tympanogra m.Left Ear:Normal hearing with excellent speech discrimina tion.Type A tympanogra m. Audio was normal Tang Hallpike was normal. I don't feel her dizziness is otologic in nature. I recommend observatio n. Pain in face 62337729 R5 1.9 282154 Maxillary sinusitis 8834 8008 J32.0 [address]26[address] I recommend a CT sinus to see [...] n. Impacted c erumen in right ear 9224464430 725564 H61.21 [id number] Recurrent Cerumen Impactions : Ears were meticulous [...] Wang Member ID Guarantor Name 02/04/2025 1 [place] [facility] Joelle Myers [id number] Joelle Myers 09/03/2025 1 [place] [facility] PL[facility] Joelle Escobedo [id number] Joelle Myers Notes Date Note Type Note Provider Name and Address Organization Details Recorded Time 09/03/2025 text/html ROS as noted in the HPI She presents with concern for sinusitis. She has frontal and maxillary facial pain. It usually resolves within a day or two. She had a CT head in January at [facility] which showed left maxillary sinusitis. She was put on a prolonged course of abx. She was having dizziness. Her dizziness has improved. She denies room spinning vertigo. She has some current frontal pressure. She does endorse allergy to pollen. She has tried cetirizine and flonase with minimal relief. Audio showed borderline normal hearing. KENISHA GRAHAM MD [address] [place] [address], [place], [address], [place] - [facility] 09/03/2025 17:12:21 OBGyn Episode No OBEpisode recorded.
--- OUTSIDE RECORDS SUMMARY | 2025-09-16 18:02 | XMS_ITS | Encounter Summary ---
Author Organization [employer] Address 75 [facility] 7t [place] [address] Care Team Providers Care Division Operations Manager Name Role Phone Sepideh Hopkins Primary Care Provider [phone] Vaishali Minor PharmD Unavailable [phone] Reason for Visit * Reason Comments Med Refill Encounter Details Date Type Department Care Team ([facility] st Contact Info) Description 06/22/2024 Refill [facility] MEDICINE 230 [place], [place] [phone] Sepideh Hopkins ANP 230 [place] [address] Social History Tobacco Use Types Packs/Day Years [...] Description 09/23/2025 11:00 AM EST Medication Management [facility] MEDICINE [address] [place] [address] Vaishali Minor PharmD [address] [place] [address] 10/01/2025 9:15 AM EST Office Visit [facility] MEDICINE [address] [place] [address] Sepideh Hopkins ANP [address] [place] [address] 11/18/2025 11:00 AM EST Telemedicine [facility] CHC MED & PEDS 505 [place] [address] Shanelle Miller, MENDEL 505 [place] [address] 01/02/2026 10:00 AM EST Office Visit [facility] ADULT DENTAL [address] [place] [address] Linsey Dawkins documented as of this encounter Visit Diagnoses Not on filedocumented in this encounter Care Teams Division Operations Manager Relationship Specialty Start Date End Date Sepideh Hopkins ANP [address] [place] [address] PCP - General Family Medicine 07/07/20 Vaishali Minor PharmD [address] [place] [address] Pharmacist Internal Medicine 10/29/24 Clarence Perkins Tamping Machine Operator Road FormsDrywall Contractor 06/24/25 documented as of this encounter
--- OUTSIDE RECORDS SUMMARY | 2025-09-16 18:02 | XMS_ITS | Encounter Summary ---
Author Organization [employer] Address 75 [facility] 7t [place] [address] Care Team Providers Care Form Drafter Name Role Phone Sepideh Hopkins Primary Care Provider [phone] Vaishali Minor PharmD Unavailable [phone] Reason for Visit * Reason Comments Med Refill Encounter Details Date Type Department Care Team ([facility] st Contact Info) Description 09/14/2025 Refill [facility] MEDICINE 230 [place], [place] [phone] Sepideh Hopkins ANP 230 [place] [address] History of pulmonary embolism Social History Tobacco Use Types Packs/Day Years [...] Description 09/23/2025 11:00 AM EST Medication Management [facility] MEDICINE [address] [place] [address] Vaishali Minor, PharmD 230 [place] [address] 10/01/2025 9:15 AM EST Office Visit [facility] MEDICINE [address] [place] [address] Sepideh Hopkins, ANP 230 [place] [address] 11/18/2025 11:00 AM EST Telemedicine [facility] CHC MED & PEDS [address] [place] [address] Shanelle Miller, RN 505 [place] [address] 01/02/2026 10:00 AM EST Office Visit [facility] ADULT DENTAL [address] [place] [address] Linsey Dawkins documented as of this encounter Visit Diagnoses Diagnosis History of pulmonary embolism Personal history of venous thrombosis and embolism documented in this encounter Additional Health Concerns Assessment Noted Time PHQ-9 Depression Total Score: 5 11/23/19 25 1:05 PM EST documented as of this encounter Care Teams Form Drafter Relationship Specialty Start Date End Date Sepideh Hopkins ANP 230 [place] [address] PCP - General Family Medicine 07/07/20 Vaishali Minor PharmD 230 [place] [address] Pharmacist Internal Medicine 10/29/24 Clarence Perkins Ophthalmic AssistantPeach Grower 06/24/25 documented as of this encounter
--- OUTSIDE RECORDS SUMMARY | 2025-09-16 18:02 | XMS_ITS | Encounter Summary ---
Author Organization [employer] Address 75 [facility] 7t [place] [address] Care Team Providers Care Dip Dyer Name Role Phone Sepideh Hopkins Primary Care Provider [phone] Vaishali Minor PharmD Unavailable [phone] Encounter Details Date Type Department Care Team ([facility] st Contact Info) Description 07/19/2025 Results Follow-Up [facility] MEDICINE [address] [place] [address] Sepideh Hopkins ANP [address] [place] [address] Culture, Urine, Routine Social History Tobacco Use [...] 11:00 AM EST Medication Management [facility] MEDICINE [address] [place] [address] Vaishali Minor, PharmD [address] [place] [address] 10/01/2025 9:15 AM EST Office Visit [facility] MEDICINE [address] [place] [address] Sepideh Hopkins ANP [address] [place] [address] 11/18/2025 11:00 AM EST Telemedicine [facility] CHC MED & PEDS 505 [place] [address] Shanelle Miller, RN 505 [place] [address] 01/02/2026 10:00 AM EST Office Visit [facility] ADULT DENTAL 230 [place] [address] Linsey Dawkins documented as of this encounter Visit Diagnoses Not on filedocumented in this encounter Additional Health Concerns Assessment Noted Time PHQ-9 Depression Total Score: 5 11/23/19 25 1:05 PM EST documented as of this encounter Care Teams Dip Dyer Relationship Specialty Start Date End Date Sepideh Hopkins ANP [address] [place] [address] PCP - General Family Medicine 07/07/20 Vaishali Minor, Leonidas 230 [place] [address] Pharmacist Internal Medicine 10/29/24 Clarence Perkins Organic Search LeadWarehouse Receiver 06/24/25 documented as of this encounter
== END 2025-09-16 15:58 | disposition home or self-care (01) ==
LOC: HO.MRI 15:57
DX: M25.512 Pain in left shoulder (principal)
CPT/HCPCS: 73221

== ENCOUNTER → 2025-09-16 15:58 | Outpatient (BNV) | payer MEDICAID, SELFPAY | PROVIDERS: Visit Provider Radiology Diagnostic Radiology | DX: M79.602 Pain in left arm (principal) | CPT/HCPCS: 73221 ==

== ENCOUNTER 2025-10-01 14:50 | Outpatient (REF) | payer MEDICAID, SELFPAY ==
--- OUTSIDE RECORDS SUMMARY | 2025-10-01 14:30 | XMS_ITS | Encounter Summary ---
Author Organization [employer] Address [address] [place] [address] Care Team Providers Care Jet Inspector Name Role Phone Neil Bernard Primary Care Provider Vaishali Minor PharmD Unavailable Reason for Visit * Reason Comments dm f/u Encounter Details Date Type Department Care Team (Latest Contact Info) Description 10/01/2025 2:30 PM EST Office Visit [facility] MED[facility]INE [address] [place] [address] Neil Bernard ANP [address] [place] [address] Type 2 diabetes mellitus with hyperlipidemia (HCC) (Primary Dx); Atherosclerosis of kashia coronary artery of kashia heart without angina pectoris; Diabetic polyneuropathy associated with type 2 diabetes mellitus (HCC); Long-term current use of opiate analgesic; Mixed anxiety and depressive disorder; Hypertension associated with diabetes (HCC); Chronic bilateral low back pain without sciatica; Acute pain of left shoulder; Routine screening for STI (sexually transmitted infection); COPD without exacerbation (CMS/HCC) (HCC); Hypomagnesemia Social History Tobacco Use Types Packs/Day Years Used Date Smoking Tobacco: Former Cigarettes Passive Smoke Exposure: Past Smokeless Tobacco: Never Alcohol Use Standard Drinks/Week Comments Never 0 (1 standard drink = 0.6 oz pur e alcohol) Alcohol Answer Date Recorded How often do you have a drink containing alcohol ? 0 10/01/2025 How many drinks containing a lcohol do you have on a typical day when you are drinking? 0 10/01/2025 How often do you have six or more drinks on one occasion? 0 10/01/2025 Depression Answer Date Recorded Patient Health Questionnaire-9 [...] Sign Reading Time Taken Comments Blood Pressure 130/80 10/01/2025 2:20 PM EST Pulse 84 10/01/2025 2:20 PM EST Temperature 36.6 C (97.8 F) 10/01/2025 2:20 PM EST Respiratory Rate 16 10/01/2025 2:20 PM EST Oxygen Saturation 98% 10/01/2025 2:20 PM EST Inhaled Oxygen Concentration - - Weight 68.8 kg (151 lb 9.6 oz) 10/01/2025 2:20 P M EST Height 154.9 cm (5' 1 ) 10/01/2025 2:20 PM EST Body Mass Index 28.64 10/01/2025 2:20 PM EST documented in this encounter Progress Notes * JAVI Hill - 10/01/2025 2:30 PM EST SUBJECTIVE: Joelle Myers is a 65 y.o. year old adult who presents for chronic disease management. Denies recent illness, injury, or hospitalization. PMH T2DM w/ polyneuropathy/hypertension/HLD, CAD, COPD vs asthma, recurrent sinusitis, former smoker Follows w/ [facility] PharmD Vaishali for DM Dr. Recinos [facility] [place] Decl[place] pap Acute Concerns: L shoulder pain - tramadol helps as does APAP and tiger balm. Heat and ice do not help. Has PT already scheduled but was advised to hold off until ortho evaluation. She has since cancelled and has ortho visit 10/17/25. Pain is worse at night, sometimes waking her up at night. She has not had the tramadol b/c it needed a PA we think as she is on lorazepam chronically and she does not want to stop this so instead she stopped her tramadol. Has narcan on list. DM: reports fewer lows since adj of lantus dose and mounjaro increase. Did have a low last night but overall has been less. She does admit she's not paying much attn to her BG b/c her L shoulder hurts so much. CP: [place] [facility] [place] w/ nuclear perfusion imaging which did not show clear cut ischemicfindings, with negative troponin's and no significant events noted on telemetry, advised to follow-up w/ cards. Type 2 Diabetes Reports adherence to Mounjaro 7.5mg once weekly, denies LIDA Pertinent negatives include polyuria, polydipsia, blurred vision SMBG using [employer] Dagmar 2 plus Jennifer CLARK provided Estonian interpretation. Social History Social History Narrative Not on file Problem List[1] Surgical History[2] Family History[3] Review of Systems Constitutional: Negative for chills and fever. HENT: Negative for sore throat. Respiratory: Negative for cough and shortness of breath. Cardiovascular: Negative for chest pain. Gastrointestinal: Negative for constipation and diarrhea. Endocrine: Negative for polydipsia, polyphagia and polyuria. Genitourinary: Negative for dysuria. Musculoskeletal: Positive for arthralgias. Negative for joint swelling. Neurological: Negative for weakness and numbness. Psychiatric/Behavioral: Positive for sleep disturbance. OBJECTIVE: Vitals: 10/01/25 1420 BP: 130/80 BP Location: Left arm Patient Position: Sitting BP Cuff Size: Adult Pulse: 84 Resp: 16 Temp: 97.8 ??F (36.6 ??C) TempSrc: Oral SpO2: 98% Weight: 151 lb 9.6 oz (68.8 kg) Height: 5' 1 (1.549 m) Physical Exam Constitutional: General: She is not in acute distress. Appearance: Normal appearance. She is not ill-appearing. HENT: Head: Normocephalic and atraumatic. Eyes: General: No scleral icterus. Extraocular Movements: Extraocular movements intact. Pupils: Pupils are equal, round, and reactive to light. Cardiovascular: Rate and Rhythm: Normal rate and regular rhythm. Pulmonary: Effort: Pulmonary effort is normal. No accessory muscle usage or respiratory distress. Breath sounds: Normal breath sounds. Musculoskeletal: Comments: ROM L arm is limited by pain, pt posturing w/ L arm held against chest. No tenderness to palpation upper L chest, upper back, L arm. Neurological: Mental Status: She is alert and oriented to person, place, and time. Psychiatric: Mood and Affect: Mood normal. Behavior: Behavior normal. ASSESSMENT/PLAN Joelle was seen today for dm f/u. Diagnoses and all orders for this visit: Type 2 diabetes mellitus with hyperlipidemia (HCC) (Primary) Pharmacologic Therapy: Mounjaro 7.5mg once weekly Lantus solostar 28 units once daily Metformin ER 500mg twice daily Glucose tabs for hypoglycemia to use as needed Foot exam at follow-up Tolerating meds well. A1c improving, still above goal </= 7.0. Recently started new dose of mounjaro. To continue. follow-up w/ CDTM as scheduled. Lab Results Component Value Date HGBA1C 7.7 (A) 10/01/2025 Per previous notes, previous LIDA of cough with ACEi Jardiance discontinued due to continuous vaginal symptoms (UTI in the past and more recently yeast infections) Per endo notes unable to tolerate metformin doses >500mg twice daily Acarbose discontinued due to pill burden and bolus insulin use Kathleen replaced by Joyce due to insurance requirements - POCT Glucose - POCT Hgb A1c Atherosclerosis of kashia coronary artery of kashia heart without angina pectoris Pt reports she saw Dr. Recinos since admission in July but I do not see this in chart. Will request from [facility]. Cont medical mgmt w/ statin, fenofibrate, metoprolol Diabetic polyneuropathy associated with type 2 diabetes mellitus (HCC) A1c improving. Cont gabapentin at current dose Long-term current use of opiate analgesic Cont follow-up w/ TRUST ADVISOR and appropriate use of tramadol Mixed anxiety and depressive disorder Stable, cont to follow w/ psych and therapy providers Hypertension associated with diabetes (HCC) Cont metoprolol XL 50mg once daily, consider low dose ARB if needed for renal benefit BP near but above goal < 120/80 Update urine albumin today BMP update ordered previously Continue to encourage low salt diet, regular exercise, home BP monitoring, compliance with medications. Call clinic if BP is frequently >150/90 Go to ED/call 911 if > 170/100 and having sx such as HEREDIA, visual changes, chest pain, SOB Last renal function: Lab Results Component Value Date GLUCOSE 115 02/19/2025 NA 140 02/19/2025 K 4.2 02/19/2025 CO2 24 02/19/2025 CL 109 (H) 02/19/2025 BUN 22 (H) 02/19/2025 CREATININE 1.17 02/19/2025 EGFR 47 02/19/2025 Lab Results Component Value Date MICROALBCREA 6 09/03/2022 Lab Results Component Value Date MICROALBCREU 14.4 10/12/2024 - Albumin, Random Urine W/Creatinine Chronic bilateral low back pain without sciatica - traMADol (Ultram) 50 MG tablet; Take 1 tablet (50 mg) by mouth Once daily as needed for severe pain for up to 28 doses. Acute pain of left shoulder Reviewed w/ pt tramadol may have needed PA as she takes lorazepam daily. She is also on gabapentin (though she says this is not much helpful so we may consider stopping/adj at follow-up). Add diclofenac topical. Recommend increase dietary intake of tumeric. - traMADol (Ultram) 50 MG tablet; Take 1 tablet (50 mg) by mouth Once daily as needed for severe pain for up to 28 doses. - Diclofenac Sodium (Voltaren) 1 % gel; Apply up to 4x/d to affected joint(s) for pain/swelling Routine screening for STI (sexually transmitted infection) - Hepatitis C Antibody with Reflex to HCV, RNA, Quantitative, Real-Time PCR; Future COPD Cont tiotropium and symbicort, prn albuterol Follow Up: 3 mo and CDTM as scheduled Medications Ordered Prior to Encounter[4] Estonian Translation: Jennifer CLARK provided Estonian interpretation. [1] Patient Active Problem List Diagnosis Allergic rhinitis Asthma Atherosclerosis of coronary artery Chronic kidney disease Chronic obstructive lung disease (HCC) Type 2 diabetes mellitus with hyperlipidemia (HCC) Gastroesophageal reflux disease Disorder of skeletal muscle Hyperlipidemia Hypertension associated with diabetes (HCC) Mixed anxiety and depressive disorder Obesity Old myocardial infarction History of cervical corpectomy Current use of anticoagulant therapy Personal history of PE (pulmonary embolism) Stented coronary artery Extensive root caries lesions involving dentin CAD (coronary artery disease) Osteophyte of cervical spine Gastroparesis Elevated LFTs Dyslipidemia Diabetic polyneuropathy associated with type 2 diabetes mellitus (HCC) Constipation Acute gastritis Alveolitis of maxilla Dizziness Dental plaque Bone spicules of jaw Personal history of nicotine dependence Sinus congestion Chronic sinusitis of both maxillary sinuses Chronic maxillary sinusitis Long-term current use of opiate analgesic Hypomagnesemia Hospital discharge follow-up Acute pain of left shoulder [2] History reviewed. No pertinent surgical history. [3] No family history on file. [4] Current Outpatient Medications on File Prior to Visit Medication Sig Dispense Refill acetaminophen (Tylenol 8 Hour) 650 MG ER tablet Take 1 tablet (650 mg) by mouth every 8 (eight) hours if needed for mild pain for up to 10 days. Do not crush, chew, or split. 30 tablet 0 albuterol (2.5 MG/3ML) 0.083% nebulizer solution Take 3 mL (2.5 mg) by nebulization every 6 (six) hours if needed for wheezing or shortness of breath. 75 mL 3 albuterol 108 (90 Base) MCG/ACT inhaler Inhale 2 puffs every 4 (four) hours. 18 g 5 apixaban (Eliquis) 2.5 MG tablet TAKE 1 TABLET BY MOUTH TWICE DAILY IN THE MORNING AND IN THE EVENING 60 tablet 3 atorvastatin (Lipitor) 40 MG tablet TAKE 1 TABLET BY MOUTH AT BEDTIME 90 tablet 3 buPROPion SR (Wellbutrin SR) 100 MG 12 hr tablet TAKE 1 TABLET BY MOUTH EVERY MORNING 30 tablet 2 cetirizine (ZyrTEC) 10 MG tablet TAKE 1 TABLET BY MOUTH EVERY MORNING 90 tablet 1 cholecalciferol VITAMIN D (Vitamin D-3) 50 MCG (2000 UT) tablet TAKE 1 TABLET BY MOUTH EVERY MORNING 90 tablet 1 Continuous Glucose Sensor (FreeStyle Dagmar 2 Plus Sensor) [facility] [place] each Use as directed. 2 each 11 docusate sodium (Colace) 100 MG capsule TAKE 1 CAPSULE BY MOUTH EVERY DAY FOR CONSTIPATION esomeprazole (NexIUM) [address] capsule Take 1 capsule by mouth Once per day. famotidine (Pepcid) 40 MG tablet Take 40 mg by mouth at bedtime. fenofibrate micronized (Lofibra) 134 MG capsule TAKE 1 CAPSULE BY MOUTH EVERY MORNING 90 capsule 3 fluticasone (Flonase) 50 MCG/ACT nasal spray SPRAY 1 SPRAY IN EACH NOSTRIL TWICE DAILY 48 g 1 gabapentin (Neurontin) 300 MG capsule TAKE 2 CAPSULES BY MOUTH TWICE DAILY IN THE MORNING AND AT BEDTIME 120 capsule 2 glucose 4 g chewable tablet Chew 4 tablets (16 g) if needed for low blood sugar. 50 tablet 3 glucose blood (FreeStyle Precision Nader Test) test strip Use to test blood sugar 3 times daily 100 each 12 insulin glargine (Lantus SoloStar) 100 UNIT/ML pen INJECT SUBCUTANEOUSLY 28 UNITS ONCE DAILY 15 mL 1 insulin pen needle (BD Pen Needle Sienna U/F) 32G x 4 mm misc Use as instructed with insulin administration once daily 100 each 3 Lancets (Unilet Micro-Thin 33G) misc TEST BLOOD SUGAR THREE TIMES DAILY 300 each 11 lidocaine (Lidoderm) 5 % patch APPLY 1 PATCH TOPICALLY TO SKIN, LEAVE ON FOR 12 HOURS AND OFF FOR 12 HOURS DIRECTED 30 patch 2 LORazepam (Ativan) 0.5 MG tablet Take 0.5 mg by mouth if needed in the morning and at bedtime for anxiety. magnesium oxide (Mag-Ox) 400 (240 Mg) MG tablet Take 400 mg by mouth in the morning. metFORMIN XR (Glucophage-XR) 500 MG 24 hr tablet TAKE 1 TABLET BY MOUTH TWICE DAILY IN THE MORNING AND IN THE EVENING WITH MEALS 180 tablet 3 metoprolol succinate XL (Toprol-XL) 50 MG 24 hr tablet TAKE 1 TABLET BY MOUTH EVERY MORNING DO NOT BREAK, CRUSH, DISSOLVE OR CHEW 90 tablet 1 naloxone (Narcan) 4 mg/0.1 mL nasal spray Administer 1 spray (4 mg) into affected nostril(s) if needed for opioid reversal. May repeat every 2-3 minutes if needed, alternating nostrils, until medicalassistance becomes available. 2 each 2 nitroglycerin (Nitrostat) 0.3 MG SL tablet DISSOLVE 1 TABLET UNDER THE TONGUE EVERY 5 MINUTES NEEDED FOR ANGINA FOR 10 DAYS. NO MORE THAN 3 DOSES PER EPISODE. CALL 911 IF NO RELIEF AFTER FIRST DOSE senna (Senokot) 8.6 MG tablet TAKE 2 TABLETS BY MOUTH EVERY DAY AT BEDTIME FOR CONSTIPATION sertraline (Zoloft) 100 MG tablet Take 1 tablet by mouth once daily sodium chloride (Lamoille) 0.65 % nasal spray 2 sprays into each nostril twice daily 30 mL 3 Symbicort 160-4.5 MCG/ACT inhaler INHALE 2 PUFFS BY MOUTH TWICE DAILY IN THE MORNING AND AT BEDTIME. RINSE MOUTH AFTER USING. 10.2 g 5 Tiotropium [place] (Spiriva HandiHaler) [address] 1 Act into inhaler and inhale Once perday. USE 1 CAPSULE FOR INHALATION ONCE A DAY DO NOT SWALLOW CAPSULE 30 capsule 5 Tirzepatide (Mounjaro) 7.5 MG/0.5ML solution auto-injector Inject 7.5 mg under the skin every 7 (seven) days. 2 mL 1 triamcinolone (Kenalog) 0.1 % cream Apply topically if needed in the morning and at bedtime for rash. 30 g 0 zolpidem (Ambien) 10 MG tablet Take 10 mg by mouth if needed at bedtime. [DISCONTINUED] traMADol (Ultram) 50 MG tablet Take 1 tablet (50 mg) by mouth Once daily as needed for severe pain for up to 20 doses. 20 tablet 0 Current Facility-Administered Medications on File Prior to Visit Medication Dose Route Frequency Provider Last Rate Last Admin albuterol 108 (90 Base) MCG/ACT inhaler 2 puff 2 puff Inhalation q4h PRN Wanda Bahena MD predniSONE (Deltasone) tablet 40 mg 40 mg Oral Daily Wanda Bahena MD 40 mg at 05/08/24 0950 documented in this encounter Miscellaneous Notes * Addendum Note - JAVI Hill - 10/01/2025 2:30 PM ESTAddended by: NEIL BERNARD on: 10/01/2025 04:52 PM Modules accepted: Orders documented in this encounter Plan of Treatment Upcoming Encounters Date Type Department Care Team (Late st Contact Info) Description 10/29/2025 11:00 AM EST Medication Management [facility] [address] [place] [address] Vaishali Minor, PharmD [address] [place] [address] 11/18/2025 11:00 AM EST Telemedicine [facility] P[facility] [address] [place] [address] Shanelle Miller, RN [address] [place] [address] 01/02/2026 10:15 AM EST Office Visit [facility] ADULT DENTAL [address] [place] [address] Linsey Dawkins 01/03/2026 1:00 PM EST Office Visit [facility] OPTOMETRY [address] [place] [address] Shreya Roberto, OD [address] [place] [address] Scheduled Orders Name Type Priority Associated Diagnoses Orde r Schedule Hepatitis C Antibody with Reflex to HCV, RNA, Quantitative, Real-Time PCR Lab Routine Routine screening for STI (sexually transmitted infection) Expected: 10/01/2025 (Approximate), Expires: 10/01/2026 documented as of this encounter Goals Goal Patient Goal Type Associated Problems Recent Progress Patient-Stated? Author Help patients manage their type 2 diabetes Care Plan Help patients manage their type 2 diabetes No Sarahy Gomes Weekly blood pressure task Care Plan Weekly blood pressure task No Sarahy Gomes Help patients manage their type 2 diabetes Care Plan Help patients manage their type 2 diabetes No Sarahy Gomes Patient has chronic kidney disease Care Plan Patient has chronic kidney disease No Sarahy Gomes Help patients manage their type 2 diabetes Care Plan Help patients manage their type 2 diabetes No Sarahy Gomes Patient has diabetic neuropathy Care Plan Patient has diabetic neuropathy No Sarahy Gomes Weekly blood pressure task Care Plan Weekly blood pressure task No Sarahy Gomes Weekly blood pressure task Care Plan Weekly blood pressure task No Sarahy Gomes Patient has chronic kidney disease Care Plan Patient has chronic kidney disease No Sarahy Gomes Patient has chronic kidney disease Care Plan Patient has chronic kidney disease No Sarahy Gomes Patient has diabetic neuropathy Care Plan Patient has diabetic neuropathy No Sarahy Gomes Patient has diabetic neuropathy Care Plan Patient has diabetic neuropathy No Sarahy Gomes Weekly blood pressure task Care Plan Weekly blood pressure task No Piers-Soares, Vaishali, PharmD Weekly blood pressure task Care Plan Weekly blood pressure task No Piers-Soares, Vaishali, PharmD Weekly blood pressure task Care Plan Weekly blood pressure task No Piers-Soares, Vaishali, PharmD Patient has chronic kidney disease Care Plan Patient has chronic kidney disease No Piers-Soares, Vaishali, PharmD Patient has chronic kidney disease Care Plan Patient has chronic kidney disease No Piers-Soares, Vaishali, PharmD Patient has chronic kidney disease Care Plan Patient has chronic kidney disease No Piers-Soares, Vaishali, PharmD Patient has diabetic neuropathy Care Plan Patient has diabetic neuropathy No Piers-Soares, Vaishali, PharmD Patient has diabetic neuropathy Care Plan Patient has diabetic neuropathy No Piers-Soares, Vaishali, PharmD Patient has diabetic neuropathy Care Plan Patient has diabetic neuropathy No Piers-Soares, Vaishali, PharmD Weekly blood pressure task Care Plan Weekly blood pressure task No Jess Harris CNP Weekly blood pressure task Care Plan Weekly blood pressure task No Jess Harris CNP Weekly blood pressure task Care Plan Weekly blood pressure task No Jess Harris PERSONAL INJURY SPECIALIST Patient has chronic kidney disease Care Plan Patient has chronic kidney disease No Pito Harriss PERSONAL INJURY SPECIALIST Patient has chronic kidney disease Care Plan Patient has chronic kidney disease No Pito Harriss PERSONAL INJURY SPECIALIST Patient has chronic kidney disease Care Plan Patient has chronic kidney disease No Pito Harriss PERSONAL INJURY SPECIALIST Patient has diabetic neuropathy Care Plan Patient has diabetic neuropathy No Pito HarrissBIANCA Patient has diabetic neuropathy Care Plan Patient has diabetic neuropathy No Jess Harris CNP Patient has diabetic neuropathy Care Plan Patient has diabetic neuropathy No Jess Harris CNP Weekly blood pressure task Care Plan Weekly blood pressure task No Tramaine Barker Weekly blood pressure task Care Plan Weekly blood pressure task No Tramaine Barker Weekly blood pressure task Care Plan Weekly blood pressure task No Tramaine Barker Patient has chronic kidney disease Care Plan Patient has chronic kidney disease No Tramaine Barker Patient has chronic kidney disease Care Plan Patient has chronic kidney disease No Tramaine Barker Patient has chronic kidney disease Care Plan Patient has chronic kidney disease No Tramaine Barker Patient has diabetic neuropathy Care Plan Patient has diabetic neuropathy No Tramaine Barker Patient has diabetic neuropathy Care Plan Patient has diabetic neuropathy No Tramaine Barker Patient has diabetic neuropathy Care Plan Patient has diabetic neuropathy No Tramaine Barker Weekly blood pressure task Care Plan Weekly blood pressure task No Colon, Eveline Weekly blood pressure task Care Plan Weekly blood pressure task No Colon, Eveline Weekly blood pressure task Care Plan Weekly blood pressure task No Colon, Eveline Patient has chronic kidney disease Care Plan Patient has chronic kidney disease No Colon, Eveline Patient has chronic kidney disease Care Plan Patient has chronic kidney disease No Colon, Eveline Patient has chronic kidney disease Care Plan Patient has chronic kidney disease No Colon, Eveline Patient has diabetic neuropathy Care Plan Patient has diabetic neuropathy No Colon, Eveline Patient has diabetic neuropathy Care Plan Patient has diabetic neuropathy No Colon, Eveline Patient has diabetic neuropathy Care Plan Patient has diabetic neuropathy No Colon, Eveline Weekly blood pressure task Care Plan Weekly blood pressure task No Tracey Perkins MA Weekly blood pressure task Care Plan Weekly blood pressure task No Tracey Perkins MA Weekly blood pressure task Care Plan Weekly blood pressure task No Tracey Perkins [place] Patient has chronic kidney disease Care Plan Patient has chronic kidney disease No Tracey Perkins [place] Patient has chronic kidney disease Care Plan Patient has chronic kidney disease No Tracey Perkins [place] Patient has chronic kidney disease Care Plan Patient has chronic kidney disease No Tracey Perkins [place] Patient has diabetic neuropathy Care Plan Patient has diabetic neuropathy No Tracey Perkins [place] Patient has diabetic neuropathy Care Plan Patient has diabetic neuropathy No Tracey Perkins [place] Patient has diabetic neuropathy Care Plan Patient has diabetic neuropathy No Tracey Perkins MA Weekly blood pressure task Care Plan Weekly blood pressure task No Tracey Perkins MA Weekly blood pressure task Care Plan Weekly blood pressure task No Tracey Perkins MA Weekly blood pressure task Care Plan Weekly blood pressure task No Tracey Perkins MA Patient has chronic kidney disease Care Plan Patient has chronic kidney disease No Tracey Perkins MA Patient has chronic kidney disease Care Plan Patient has chronic kidney disease No Tracey Perkins [place] Patient has chronic kidney disease Care Plan Patient has chronic kidney disease No Tracey Perkins [place] Patient has diabetic neuropathy Care Plan Patient has diabetic neuropathy No Tracey Perkins [place] Patient has diabetic neuropathy Care Plan Patient has diabetic neuropathy No Tracey Perkins [place] Patient has diabetic neuropathy Care Plan Patient has diabetic neuropathy No Tracey Perkins MA Weekly blood pressure task Care Plan Weekly blood pressure task No Rachana Daugherty RN Weekly blood pressure task Care Plan Weekly blood pressure task No Rachana Daugherty RN Weekly blood pressure task Care Plan Weekly blood pressure task No Rachana Daugherty RN Patient has chronic kidney disease Care Plan Patient has chronic kidney disease No Rachana Daugherty RN Patient has chronic kidney disease Care Plan Patient has chronic kidney disease No Rachana Daugherty RN Patient has chronic kidney disease Care Plan Patient has chronic kidney disease No Rachana Daugherty RN Patient has diabetic neuropathy Care Plan Patient has diabetic neuropathy No Rachana Daugherty RN Patient has diabetic neuropathy Care Plan Patient has diabetic neuropathy No Rachana Daughrety RN Patient has diabetic neuropathy Care Plan Patient has diabetic neuropathy No Rachana Daugherty RN Weekly blood pressure task Care Plan Weekly blood pressure task No Neil Bernard ANP Weekly blood pressure task Care Plan Weekly blood pressure task No Neil Bernard ANP Weekly blood pressure task Care Plan Weekly blood pressure task No Neil Bernard ANP Patient has chronic kidney disease Care Plan Patient has chronic kidney disease No Neil Bernard ANP Patient has chronic kidney disease Care Plan Patient has chronic kidney disease No Neil Bernard ANP Patient has chronic kidney disease Care Plan Patient has chronic kidney disease No Neil Bernard ANP Patient has diabetic neuropathy Care Plan Patient has diabetic neuropathy No Neil Bernard ANP Patient has diabetic neuropathy Care Plan Patient has diabetic neuropathy No Neil Bernard ANP Patient has diabetic neuropathy Care Plan Patient has diabetic neuropathy No Neil Bernard ANP documented as of this encounter Procedures Procedure Name Priority Date/Time Associated Diagnosis Comments ALBUMIN, RANDOM URINE W/CREATININE Routine 10/01/2025 2:43 PM EST Hypertension associated with diabetes (HCC) POCT GLYCATED HEMOGLOBIN, TOTAL Routine 10/01/2025 2:24 PM EST Type 2 diabetes mellitus with hyperlipidemia (HCC) POCT GLUCOSE Routine 10/01/2025 2:22 PM EST Type 2 diabetes mellitus with hyperlipidemia (HCC) documented in this encounter Results * Albumin, Random Urine W/Creatinine (10/01/2025 2:43 PM EST) Creatinine, Urine 80.26 mg/dL [facility] Microalbumin Urine 14.0 mg/L [facility] Microalbum Creatinine Ratio Ur 17.4 <30 ug/mg cr [facility] Comment:Albumin/Creatinine R atio Reference Ranges: Normal: < 30 ug/mg creatinine Microalbuminuria: 30 - 300 ug/mg creatinineClinical Albuminuria: > 300 ug/mg creatinine Urine (Urine, Random) 10/01/2025 2:43 PM EST 10/01/2025 4:14 PM EST us Neil CALDWELL [facility] URINE ORDERABLES Final Resul t [facility] [address] [place] [address] [phone] * (ABNORMAL) POCT Hgb A1c (10/01/2025 2:24 PM EST) Hemoglobin A1C 7.7(A) 4.0 - 5.7 % QC Media Lot # [id number] Lot# Expiration Date [id number] Blood 10/01/2025 2:24 PM EST us Neil Bernard ANP POINT OF CARE TEST ENTER/EDIT OR DERABLES Final Result * (ABNORMAL) POCT Glucose (10/01/2025 2:22 PM EST) Glucose Blood, POC 201(A) 60 - 200 mg/dL QC Media Lot # [id number] Lot# Expiration Date [id number] Blood Capillary blood specimen / Unknown 10/01/2025 2:22 PM EST us Neil Bernard ANP POINT OF CARE TEST ENTER/EDIT OR DERABLES Final Result documented in this encounter Visit Diagnoses Diagnosis Type 2 diabetes mellitus with hyperlipidemia (HCC)- Primary Atherosclerosis of kashia coronary artery of kashia heart without angina pectoris Diabetic polyneuropathy associated with type 2 diabetes mellitus (HCC) Long-term current use of opiate analgesic Encounter for long-term (current) use of other medications Mixed anxiety and depressive disorder Dysthymic disorder Hypertension associated with diabetes (HCC) Unspecified essential hypertension Chronic bilateral low back pain without sciatica Acute pain of left shoulder Routine screening for STI (sexually transmitted infection) Screening examination for venereal disease COPD without exacerbation (CMS/HCC) (HCC) Hypomagnesemia Disorders of magnesium metabolism documented in this encounter Additional Health Concerns Active Problems Noted Date Diagnosed Date Help patients manage their type 2 diabetes 09/20 Weekly blood pressure task 09/20/2025 Help patients manage their type 2 diabetes 09/20 Patient has chronic kidney disease 09/20/2025 Help patients manage their type 2 diabetes 09/20 Patient has diabetic neuropathy 09/20/2025 Weekly blood pressure task 09/20/2025 Weekly blood pressure task 09/20/2025 Patient has chronic kidney disease 09/20/2025 Patient has chronic kidney disease 09/20/2025 Patient has diabetic neuropathy 09/20/2025 Patient has diabetic neuropathy 09/20/2025 Weekly blood pressure task 09/23/2025 Weekly blood pressure task 09/23/2025 Weekly blood pressure task 09/23/2025 Patient has chronic kidney disease 09/23/2025 Patient has chronic kidney disease 09/23/2025 Patient has chronic kidney disease 09/23/2025 Patient has diabetic neuropathy 09/23/2025 Patient has diabetic neuropathy 09/23/2025 Patient has diabetic neuropathy 09/23/2025 Weekly blood pressure task 09/23/2025 Weekly blood pressure task 09/23/2025 Weekly blood pressure task 09/23/2025 Patient has chronic kidney disease 09/23/2025 Patient has chronic kidney disease 09/23/2025 Patient has chronic kidney disease 09/23/2025 Patient has diabetic neuropathy 09/23/2025 Patient has diabetic neuropathy 09/23/2025 Patient has diabetic neuropathy 09/23/2025 Weekly blood pressure task 09/23/2025 Weekly blood pressure task 09/23/2025 Weekly blood pressure task 09/23/2025 Patient has chronic kidney disease 09/23/2025 Patient has chronic kidney disease 09/23/2025 Patient has chronic kidney disease 09/23/2025 Patient has diabetic neuropathy 09/23/2025 Patient has diabetic neuropathy 09/23/2025 Patient has diabetic neuropathy 09/23/2025 Weekly blood pressure task 09/23/2025 Weekly blood pressure task 09/23/2025 Weekly blood pressure task 09/23/2025 Patient has chronic kidney disease 09/23/2025 Patient has chronic kidney disease 09/23/2025 Patient has chronic kidney disease 09/23/2025 Patient has diabetic neuropathy 09/23/2025 Patient has diabetic neuropathy 09/23/2025 Patient has diabetic neuropathy 09/23/2025 Weekly blood pressure task 09/30/2025 Weekly blood pressure task 09/30/2025 Weekly blood pressure task 09/30/2025 Patient has chronic kidney disease 09/30/2025 Patient has chronic kidney disease 09/30/2025 Patient has chronic kidney disease 09/30/2025 Patient has diabetic neuropathy 09/30/2025 Patient has diabetic neuropathy 09/30/2025 Patient has diabetic neuropathy 09/30/2025 Weekly blood pressure task 09/30/2025 Weekly blood pressure task 09/30/2025 Weekly blood pressure task 09/30/2025 Patient has chronic kidney disease 09/30/2025 Patient has chronic kidney disease 09/30/2025 Patient has chronic kidney disease 09/30/2025 Patient has diabetic neuropathy 09/30/2025 Patient has diabetic neuropathy 09/30/2025 Patient has diabetic neuropathy 09/30/2025 Weekly blood pressure task 10/01/2025 Weekly blood pressure task 10/01/2025 Weekly blood pressure task 10/01/2025 Patient has chronic kidney disease 10/01/2025 Patient has chronic kidney disease 10/01/2025 Patient has chronic kidney disease 10/01/2025 Patient has diabetic neuropathy 10/01/2025 Patient has diabetic neuropathy 10/01/2025 Patient has diabetic neuropathy 10/01/2025 Weekly blood pressure task 10/01/2025 Weekly blood pressure task 10/01/2025 Weekly blood pressure task 10/01/2025 Patient has chronic kidney disease 10/01/2025 Patient has chronic kidney disease 10/01/2025 Patient has chronic kidney disease 10/01/2025 Patient has diabetic neuropathy 10/01/2025 Patient has diabetic neuropathy 10/01/2025 Patient has diabetic neuropathy 10/01/2025 Assessment Noted Time PHQ-9 Depression Total Score: 5 11/23/19 1:05 PM EST documented as of this encounter Care Teams Jet Inspector Relationship Specialty Start Date End Date Neil Bernard ANP [address] [place] [address] PCP - General Family Medicine 07/07/20 Vaishali Minor PharmD [address] [place] [address] Pharmacist Internal Medicine 10/29/24 Clarence Perkins Film Rental ClerkProduct Test Specialist 06/24/25 documented as of this encounter
[2025-10-01 16:45] LABS: Anion Gap 11 (12-20); Blood Urea Nitrogen 16 mg/dL (9-16); Calcium 10.5 mg/dL (8.4-10.2); Carbon Dioxide 26 mmol/L (22-29); Chloride 107 mmol/L (96-108); Estimated Glomerular Filt Rate 45; Magnesium 1.4 mg/dL (1.6-2.6); Potassium 4.3 mmol/L (3.3-5.1); Sodium 140 mmol/L (135-145)
[2025-10-01 17:04] LABS: Microalbum/Creatinine Ratio Ur 17.4 ug/mg cr (<30)
--- OUTSIDE RECORDS SUMMARY | 2025-10-01 18:36 | XMS_ITS | Encounter Summary ---
Author Organization [employer] Address [address] [facility] 7[address] [place] [address] Care Team Providers Care Records Tech Name Role Phone Sepideh Hopkins Primary Care Provider [phone] Vaishali Minor PharmD Unavailable [phone] Encounter Details Date Type Department Care Team ([facility] st Contact Info) Description 10/01/2025 Results Follow-Up [facility] [address] [place] [address] Sepideh Hopkins ANP [address] [place] [address] Basic Metabolic Panel, Magnesium Social History Tobacco Use Types Packs/Day [...] the past 12 months, has t he [employer], gas, oil or water [employer] threatened to shut off services in your [...] Result Encounter Note - JAVI Hill - 10/01/2025 5:27 PM EST Recommend increased mag supplement to BID, consider need to stop esomeprazole, will need to messageGI. Team - please outreach pt in AM, we were unable to reach her this evening. documented in this encounter Plan of Treatment Upcoming Encounters Date Type Department Care Team ([facility] st Contact Info) Description 10/29/2025 11:00 AM EST Medication Management [facility] [address] [place] [address] Vaishali Minor, PharmD [address] [place] [address] 11/18/2025 11:00 AM EST Telemedicine [facility] MED & PEDS [address] [place] [address] Shanelle Miller RN [address] [place] [address] 01/02/2026 10:15 AM EST Office Visit [facility] ADULT DENTAL [address] [place] [address] DawkinsLinsey otero 01/03/2026 1:00 PM EST Office Visit [facility] OPTOMETRY [address] [place] [address] Shreya Roberto, OD [address] [place] [address] documented as of this encounter Goals Goal [...] Care Plan Weekly blood pressure task No Vaishali Minor, PharmD Weekly blood pressure task Care Plan Weekly blood pressure task No Vaishali Minor, PharmD Weekly blood pressure task Care Plan [...] Care Plan Weekly blood pressure task No HarrisKrisxis, TESTING PROJECTS ADMINISTRATOR Weekly blood pressure task Care Plan Weekly blood pressure task No Harris Alexxis, TESTING PROJECTS ADMINISTRATOR Weekly blood pressure task Care Plan Weekly blood pressure task No Steven Alexxis, TESTING PROJECTS ADMINISTRATOR Patient has chronic kidney disease Care Plan Patient has chronic kidney disease No Steven Alexxis, TESTING PROJECTS ADMINISTRATOR Patient has chronic kidney disease Care Plan Patient has chronic kidney disease No Harris Alexxis, TESTING PROJECTS ADMINISTRATOR Patient has chronic kidney disease Care Plan Patient has chronic kidney disease No Steven Alexxis, TESTING PROJECTS ADMINISTRATOR Patient has diabetic neuropathy Care Plan Patient has diabetic neuropathy No Steven Alexxis, TESTING PROJECTS ADMINISTRATOR Patient has diabetic neuropathy Care Plan Patient has diabetic neuropathy No Steven Alexxis, TESTING PROJECTS ADMINISTRATOR Patient has diabetic neuropathy Care Plan Patient has diabetic neuropathy No Steven Alexxis, TESTING PROJECTS ADMINISTRATOR Weekly blood pressure task Care Plan Weekly [...] Plan Patient has chronic kidney disease No Tracye Perkins [place] Patient has chronic kidney disease [...] Care Plan Patient has diabetic neuropathy No Tarcey Perkins MA Patient has diabetic neuropathy Care [...] Care Plan Weekly blood pressure task No Sepideh Hopkins ANP Weekly blood pressure task Care Plan Weekly blood pressure task No Sepideh Hopkins ANP Weekly blood pressure task Care Plan Weekly blood pressure task No Sepideh Hopkins ANP Patient has chronic kidney disease Care Plan Patient has chronic kidney disease No Sepideh Hopkins ANP Patient has chronic kidney disease Care Plan Patient has chronic kidney disease No Sepideh Hopkins ANP Patient has chronic kidney disease Care Plan Patient has chronic kidney disease No Sepideh Hopkins ANP Patient has diabetic neuropathy Care Plan Patient has diabetic neuropathy No Sepideh Hopkins ANP Patient has diabetic neuropathy Care Plan Patient has diabetic neuropathy No Sepideh Hopkins ANP Patient has diabetic neuropathy Care Plan Patient has diabetic neuropathy No Sepideh Hopkins ANP documented as of this encounter Visit Diagnoses Not on filedocumented in this encounter Additional Health Concerns Active [...] documented as of this encounter Care Teams Records Tech Relationship Specialty Start Date End Date Sepideh Hopkins ANP [address] [place] [address] PCP - General Family Medicine 07/07/20 Vaishali Minor PharmD [address] [place] [address] Pharmacist Internal Medicine 10/29/24 Clarence Perkins Senior Sql Server DbaWeaving Teacher 06/24/25 documented as of this encounter
--- OUTSIDE RECORDS SUMMARY | 2025-10-01 18:36 | XMS_ITS | Encounter Summary ---
Author Organization [employer] Address [address] [facility] 7t [place] [address] Care Team Providers Care Dumping Machine Operator Name Role Phone Sepideh Hopkins JAVI Primary Care Provider [phone] Vaishali Minor PharmD Unavailable [phone] Encounter Details Date Type Department Care Team (Late st Contact Info) Description 01/10/2025 Orders Only [facility] MED [facility] PEDS [address] [place], [place] [phone] Provider, MD Jan Social History Tobacco Use [...] ([facility] st Contact Info) Description 10/29/2025 11:00 AM EST Medication Management [facility] [address] [place] [address] Vaishali Minor, PharmD [address] [place] [address] 11/18/2025 11:00 AM EST Telemedicine [facility] P[facility] [address] [place] [address] Shanelle Miller, RN [address] [place] [address] 01/02/2026 10:15 AM EST Office Visit [facility] ADULT DENTAL [address] [place] [address] Linsey Dawkins 01/03/2026 1:00 PM EST Office Visit [facility] OPTOMETRY [address] [place] [address] Shreya Roberto, OD [address] [place] [address] documented as of this encounter Procedures Procedure [...] documented as of this encounter Care Teams Dumping Machine Operator Relationship Specialty Start Date End Date Sepideh Hopkins ANP [address] [place] [address] PCP - General Family Medicine 07/07/20 Vaishali Minor PharmD [address] [place] [address] Pharmacist Internal Medicine 10/29/24 Clarence Perkins Bridge RepairerTube Filler 06/24/25 documented as of this encounter
--- OUTSIDE RECORDS SUMMARY | 2025-10-01 18:36 | XMS_ITS | Encounter Summary ---
Author Organization [employer] Address [address] [facility] 7t [place] [address] Care Team Providers Care Reception Agent Name Role Phone Sepideh Hopkins Primary Care Provider [phone] Vaishali Minor PharmD Unavailable Reason for Visit * Reason Onset Date Comments chartprep 09/30/2025 Encounter Details Date Type Department Care Team ([facility] st Contact Info) Description 09/30/2025 Telephone [facility] [address] [place] [address] Sepideh Hopkins ANP [address] [place] [address] chartprep Social History Tobacco Use Types Packs/Day Years [...] encounter Miscellaneous Notes * Telephone Encounter - Tracey Perkins MA - 09/30/2025 2:50 PM EST ..Chart Prep Labs: done Images: done MR shoulder Vaccines due: Covid Due Referrals: Orthopedics appointment pending Screenings: Not Applicable Overdue care gaps: A1C, Glucose, and Sbirt documented in this encounter Plan of Treatment Upcoming Encounters Date Type Department Care Team (Late st Contact Info) Description 10/29/2025 11:00 AM EST Medication Management [facility] [address] [place] [address] Vaishali Minor, PharmD [address] [place] [address] 11/18/2025 11:00 AM EST Telemedicine [facility] MED [facility] PED[facility] [address] [place] [address] Shanelle Miller, RN [address] [place] [address] 01/02/2026 10:15 AM EST Office Visit [facility] ADULT DENTAL [address] [place] [address] Linsey Dawkins 01/03/2026 1:00 PM EST Office Visit [facility] OPTOMETRY [address] [place] [address] Shreya Roberto, OD [address] [place] [address] documented as of this encounter Goals Goal [...] Plan Weekly blood pressure task No Vaishali Minor PharmD Weekly blood pressure task Care Plan [...] Care Plan Weekly blood pressure task No Kris Harrisxis, VACATION GUIDE Weekly blood pressure task Care Plan Weekly blood pressure task No Steven Alexxis, VACATION GUIDE Weekly blood pressure task Care Plan Weekly blood pressure task No Steven Alexxis, VACATION GUIDE Patient has chronic kidney disease Care Plan Patient has chronic kidney disease No Steven Alexxis, VACATION GUIDE Patient has chronic kidney disease Care Plan Patient has chronic kidney disease No Steven Alexxis, VACATION GUIDE Patient has chronic kidney disease Care Plan Patient has chronic kidney disease No Steven Alexxis, VACATION GUIDE Patient has diabetic neuropathy Care Plan Patient has diabetic neuropathy No Steven Alexxis, VACATION GUIDE Patient has diabetic neuropathy Care Plan Patient has diabetic neuropathy No Steven Alexxis, VACATION GUIDE Patient has diabetic neuropathy Care Plan Patient has diabetic neuropathy No Steven Alexxis, VACATION GUIDE Weekly blood pressure task Care Plan Weekly [...] Care Plan Weekly blood pressure task No Eveline Lubin Weekly blood pressure task Care Plan Weekly blood pressure task No Eveline Lubin Weekly blood pressure task Care Plan Weekly blood pressure task No ColonEveline Patient has chronic kidney disease Care Plan Patient has chronic kidney disease No Eveline Lubin Patient has chronic kidney disease Care Plan Patient has chronic kidney disease No Tristian, Eveline Patient has chronic kidney disease Care Plan Patient has chronic kidney disease No ColonEveline Patient has diabetic neuropathy Care Plan Patient has diabetic neuropathy No ColonEveline Patient has diabetic neuropathy Care Plan Patient has diabetic neuropathy No Eveline Lubin Patient has diabetic neuropathy Care Plan Patient has diabetic neuropathy No Eveline Lubin Weekly blood pressure task Care Plan Weekly [...] has diabetic neuropathy No Tracey Perkins MA documented as of this encounter Visit Diagnoses [...] neuropathy 09/30/2025 Patient has diabetic neuropathy 09/30/2025 Assessment Noted Time PHQ-9 Depression Total Score: 5 11/23/19 1:05 PM EST documented as of this encounter Care Teams Reception Agent Relationship Specialty Start Date End Date Sepideh Hopkins ANP [address] [place] [address] PCP - General Family Medicine 07/07/20 Vaishali Minor PharmD [address] [place] [address] Pharmacist Internal Medicine 10/29/24 Clarence Perkins Boom SupervisorParaprofessional Aide Teacher 06/24/25 documented as of this encounter
--- OUTSIDE RECORDS SUMMARY | 2025-10-01 18:36 | XMS_ITS | Encounter Summary ---
Author Organization [employer] Address [address] [facility] 7t [place] [address] Care Team Providers Care Laboratory Geneticist Name Role Phone Sepideh Hopkins Primary Care Provider [phone] Vaishali Minor PharmD Unavailable Reason for Visit * Reason Onset Date Comments Med Refill 08/05/2025 Encounter Details Date Type Department Care Team ([facility] st Contact Info) Description 08/05/2025 Telephone [facility] [address] [place], [place] [phone] Sepideh Hopkins ANP [address] [place] [address] Med Refill Social History Tobacco Use Types [...] 50 MG tablet To be sent to: [facility] - [place], [place] - [address] [place] [address] documented in this encounter Plan of Treatment Upcoming Encounters Date Type Department Care Team ([facility] st Contact Info) Description 10/29/2025 11:00 AM EST Medication Management [facility] [address] [place] [address] Vaishali Minor, PharmD [address] [place] [address] 11/18/2025 11:00 AM EST Telemedicine [facility] MED & PEDS [address] [place] [address] Shanelle Miller, RN [address] [place] [address] 01/02/2026 10:15 AM EST Office Visit [facility] ADULT DENTAL [address] [place] [address] Linsey Dawkins 01/03/2026 1:00 PM EST Office Visit [facility] OPTOMETRY [address] [place] [address] Shreya Roberto, OD [address] [place] [address] documented as of this encounter Visit Diagnoses Not on filedocumented in this encounter Additional Health Concerns Assessment Noted Time PHQ-9 Depression Total Score: 5 11/23/19 1:05 PM EST documented as of this encounter Care Teams Laboratory Geneticist Relationship Specialty Start Date End Date Sepideh Hopkins ANP [address] [place] [address] PCP - General Family Medicine 07/07/20 Vaishali Minor PharmD [address] [place] [address] Pharmacist Internal Medicine 10/29/24 Clarence Perkins Machine Heddle CleanerWeb Systems Developer 06/24/25 documented as of this encounter
--- OUTSIDE RECORDS SUMMARY | 2025-10-01 18:36 | XMS_ITS | Encounter Summary ---
Author Organization [email or web address] Address [address] [facility] [address] [place] [address] Care Team Providers Care Insulation Board Calender Operator Name Role Phone Sepideh Hopkins Primary Care Provider [phone] Vaishali Minor PharmD Unavailable [phone] Reason for Visit * Reason Onset Date Comments Critical lab 10/01/2025 Encounter Details Date Type Department Care Team ([facility] st Contact Info) Description 10/01/2025 Telephone [facility] [address] [place] [address] Sepideh Hopkins ANP [address] [place] [address] Critical lab Social History Tobacco Use Types Packs/Day Years [...] the past 12 months, has t he [employer], gas, oil or water [employer] threatened to shut off services in your [...] Telephone Encounter - Sharon Garrison RN - 10/01/2025 4:50 PM EST RN received call from MENDEL Reich that pt had a critical lab called in showing Magnesium at 1.4. RNspoke with PCP who reordered magnesium oxide 400 MG tablet for pt to take BID daily. Pt was contacted to inform of the plan of care and a VM was left to call back the office. Will call the pt first thing on 10/02/2025 to inform of plan of care. * Telephone Encounter - Rachana Daugherty RN - 10/01/2025 4:47 PM EST Incoming call from the [facility] lab . microbiological lab technician reported the pt's Magnesium level of 1.4 . A warm handoff call was given to Sharon RN . Will route this message to the green team nurse , and the pt's PCP for review . TY. documented in this encounter Plan of Treatment Upcoming Encounters Date Type Department Care Team (Late st Contact Info) Description 10/29/2025 11:00 AM EST Medication Management [facility] MEDICINE [address] [place] [address] Vaishali Minor PharmD [address] [place] [address] 11/18/2025 11:00 AM EST Telemedicine [facility] MED & PEDS [address] [place] [address] Shanelle Miller, MENDEL [address] [place] [address] 01/02/2026 10:15 AM EST Office Visit [facility] ADULT DENTAL [address] [place] [address] Linsey Dawkins 01/03/2026 1:00 PM EST Office Visit [facility] OPTOMETRY [address] [place] [address] Shreya Roberto, OD [address] [place] [address] documented as of this encounter Goals Goal [...] Care Plan Weekly blood pressure task No Pito Harriss NITROCELLULOSE MAKER Patient has chronic kidney disease Care Plan Patient has chronic kidney disease No Pito HarrissBIANCA Patient has chronic kidney disease Care Plan Patient has chronic kidney disease No Jess Harris CNP Patient has chronic kidney disease Care Plan Patient has chronic kidney disease No Jess Harris CNP Patient has diabetic [...] as of this encounter Care Teams Insulation Board Calender Operator Relationship Specialty Start Date End Date Sepideh Hopkins ANP [address] [place] [address] PCP - General Family Medicine 07/07/20 Vaishali Minor PharmD [address] [place] [address] Pharmacist Internal Medicine 10/29/24 Clarence Perkins Sales CounselorCaterpillar Operator 06/24/25 documented as of this encounter
--- OUTSIDE RECORDS SUMMARY | 2025-10-01 18:36 | XMS_ITS | Encounter Summary ---
Author Organization [employer] Address [address] [facility] [address] [place] [address] Care Team Providers Care Ruling Machine Feeder Name Role Phone Sepideh Hopkins JAVI Primary Care Provider [phone] Vaishali Minor PharmD Unavailable [phone] Encounter Details Date Type Department Care Team (Latest Contact Info) Description 10/01/2025 Travel Social History Tobacco Use Types Packs/Day [...] Description 10/29/2025 11:00 AM EST Medication Management [facility] [address] [place] [address] Vaishali Minor, PharmD [address] [place] [address] 11/18/2025 11:00 AM EST Telemedicine [facility] [address] [place] [address] Shanelle Miller, RN [address] [place] [address] 01/02/2026 10:15 AM EST Office Visit [facility] [address] [place] [address] Linsey Dawkins 01/03/2026 1:00 PM EST Office Visit [facility] [address] [place] [address] Shreya Roberto, OD [address] [place] [address] documented as of this encounter Goals Goal [...] Care Plan Weekly blood pressure task No Rolos-SoaresDanasa, PharmD Weekly blood pressure task Care Plan Weekly blood pressure task No Rolos-Soares, Vaishali, PharmD Weekly blood pressure task Care [...] Plan Weekly blood pressure task No Kris Harrisxis CONSTRUCTION FLAGGER Weekly blood pressure task Care Plan Weekly blood pressure task No Pito HarrissBIANCA Patient has chronic kidney disease Care Plan Patient has chronic kidney disease No Kris HarrisxisBIANCA Patient has chronic kidney disease Care Plan Patient has chronic kidney disease No Kris HarrisxisBIANCA Patient has chronic kidney disease Care Plan Patient has chronic kidney disease No Pito HarrissBIANCA Patient has diabetic neuropathy Care Plan Patient has diabetic neuropathy No Kris HarrisxisBIANCA Patient has diabetic neuropathy Care Plan Patient has diabetic neuropathy No Kris HarrisxisBIANCA Patient has diabetic neuropathy Care Plan Patient has diabetic neuropathy No Pito HarrissBIANCA Weekly blood pressure task Care Plan Weekly [...] has chronic kidney disease No Tracey Perkins [place] Patient has chronic kidney disease Care Plan Patient has chronic kidney disease No Tracey Perkins [place] Patient has chronic kidney disease Care Plan Patient has chronic kidney disease No Tracey Perkins [place] Patient has diabetic neuropathy Care Plan Patient has diabetic neuropathy No Tracey Perkins [place] Patient has diabetic neuropathy Care Plan Patient has diabetic neuropathy No Tracey Perkins [place] Patient has diabetic neuropathy Care Plan Patient has diabetic neuropathy No Tracey Perkins [place] Weekly blood pressure task Care Plan Weekly blood pressure task No Tracey Perkins [place] Weekly blood pressure task Care Plan Weekly blood pressure task No Tracey Perkins [place] Weekly blood pressure task Care Plan Weekly blood pressure task No Tracey Perkins [place] Patient has chronic kidney disease Care Plan Patient has chronic kidney disease No Tracey Perkins [place] Patient has chronic kidney disease Care Plan Patient has chronic kidney disease No Tracey Perkins [place] Patient has chronic kidney disease Care Plan Patient has chronic kidney disease No Tracey Perkins [place] Patient has diabetic neuropathy Care Plan Patient has diabetic neuropathy No Tracey Perkins [place] Patient has diabetic neuropathy Care Plan Patient has diabetic neuropathy No Tracey Perkins [place] Patient has diabetic neuropathy Care Plan Patient [...] documented as of this encounter Care Teams Ruling Machine Feeder Relationship Specialty Start Date End Date Sepideh Hopkins ANP [address] [place] [address] PCP - General Family Medicine 07/07/20 Vaishali Minor PharmD [address] [place] [address] Pharmacist Internal Medicine 10/29/24 Clarence Perkins Tobacco Drier OperatorTobacco Feeder Catcher 06/24/25 documented as of this encounter
--- OUTSIDE RECORDS SUMMARY | 2025-10-01 18:37 | XMS_ITS | Encounter Summary ---
Author Organization [employer] Address [address] [facility] 7t [place] [address] Care Team Providers Care Coconut Candy Maker Name Role Phone Sepideh Hopkins Primary Care Provider [phone] Vaishali Minor PharmD Unavailable [phone] Reason for Visit * Reason Comments Med Refill Encounter Details Date Type Department Care Team ([facility] st Contact Info) Description 06/22/[address] [facility] [address] [place], [place] [id number] Sepideh Hopkins ANP [address] [place] [address] Social History Tobacco Use Types Packs/Day Years [...] 11:00 AM EST Medication Management [facility] [address] [place] [address] Vaishali Minor PharmD [address] [place] [address] 11/18/2025 11:00 AM EST Telemedicine [facility] [address] [place] [address] Shanelle Miller, MENDEL [address] [place] [address] 01/02/2026 10:15 AM EST Office Visit [facility] ADULT DENTAL [address] [place] [address] Linsey Dawkins 01/03/2026 1:00 PM EST Office Visit [facility] OPT[facility] [address] [place] [address] Shreya Roberto, OD [address] [place] [address] documented as of this encounter Visit Diagnoses Not on filedocumented in this encounter Care Teams Coconut Candy Maker Relationship Specialty Start Date End Date Sepideh Hopkins ANP [address] [place] [id number] PCP - General Family Medicine 07/07/20 Vaishali Minor PharmD [address] [place] [address] Pharmacist Internal Medicine 10/29/24 Clarence Perkins Slot Machine MechanicVein Pumper 06/24/25 documented as of this encounter
--- OUTSIDE RECORDS SUMMARY | 2025-10-01 18:37 | XMS_ITS | Encounter Summary ---
Author Organization [employer] Address [address] [facility] [address] [place] [address] Care Team Providers Care Manager Stone Name Role Phone Sepideh Hopkins JAVI Primary Care Provider [phone] Vaishali Minor PharmD Unavailable Reason for Visit * Reason Onset Date Comments Dr. Angeles case delivery 07/03/2025 Encounter Details Date Type Department Care Team ([facility] st Contact Info) Description 07/03/2025 Telephone [facility] AD[facility] DENT[facility] [address] [place] [address] Everett Angeles, DMD [address] [place] [address] Dr. Angeles case delivery Social History Tobacco [...] Angeles was not in office yesterday therefore frontload driver is waiting to see him today to confirm how provider would likke to schedule patient. tennis desk team member will reach out to patient to schedule. documented in this encounter Plan of Treatment Upcoming Encounters Date Type Department Care Team ([facility] st Contact Info) Description 10/29/2025 11:00 AM EST Medication Management [facility] [address] [place] [address] Vaishali Minor, PharmD [address] [place] [address] 11/18/2025 11:00 AM EST Telemedicine [facility] [address] [place] [address] Shanelle Miller, RN [address] [place] [address] 01/02/2026 10:15 AM EST Office Visit [facility] AD[facility] D[facility] [address] [place], [place] [phone] Linsey Dawkins 01/03/2026 1:00 PM EST Office Visit [facility] [address] [place] [address] Shreya Roberto, OD [address] [place] [address] documented as of this encounter Visit Diagnoses Not on filedocumented in this encounter Additional Health Concerns Assessment Noted Time PHQ-9 Depression Total Score: 5 11/23/19 25 1:05 PM EST documented as of this encounter Care Teams Manager Stone Relationship Specialty Start Date End Date Sepideh Hopkins ANP [address] [place] [address] PCP - General Family Medicine 07/07/20 Vaishali Minor, IrwinD [address] [place] [address] Pharmacist Internal Medicine 10/29/24 Clarence Perkins Harness CleanerConcrete Journeyman 06/24/25 documented as of this encounter
--- OUTSIDE RECORDS SUMMARY | 2025-10-01 18:37 | XMS_ITS | Encounter Summary ---
Author Organization [employer] Address [address] [facility] [address] [place] [address] Care Team Providers Care Regrinder Name Role Phone Sepideh Hopkins Primary Care Provider [phone] Vaishali Minor PharmD Unavailable Reason for Visit * Reason Onset Date Comments Durable Medical Equipment 06/11/2025 Encounter Details Date Type Department Care Team ([facility] st Contact Info) Description 06/11/2025 Telephone [facility] [address] [place] [address] Sepideh Hopkins ANP [address] [place] [address] Durable Medical Equipment Social History Tobacco Use [...] AM EDT Tc from pt day care director Clarence requesting status on walker discussed during office visit with PCP on 05/31. documented in this encounter Plan of Treatment Upcoming Encounters Date Type Department Care Team (Late st Contact Info) Description 10/29/2025 11:00 AM EST Medication Management [facility] [address] [place] [address] Vaishali Minor, PharmD [address] [place] [address] 11/18/2025 11:00 AM EST Telemedicine [facility] [address] [place] [address] Shanelle Miller, RN [address] [place] [address] 01/02/2026 10:15 AM EST Office Visit [facility] ADULT DENTAL [address] [place] [address] Linsey Dawkins 01/03/2026 1:00 PM EST Office Visit [facility] OPTOM[facility] [address] [place] [address] Shreya Roberto, OD [address] [place] [address] documented as of this encounter Visit Diagnoses Not on filedocumented in this encounter Additional Health Concerns Assessment Noted Time PHQ-9 Depression Total Score: 5 11/23/19 1:05 PM EST documented as of this encounter Care Teams Regrinder Relationship Specialty Start Date End Date Sepideh Hopkins ANP [address] [place] [address] PCP - General Family Medicine 07/07/20 Vaishali Minor, Leonidas [address] [place] [address] Pharmacist Internal Medicine 10/29/24 Clarence Perkins Pet Store MerchandiserColor Grinder 06/24/25 documented as of this encounter
--- OUTSIDE RECORDS SUMMARY | 2025-10-01 18:37 | XMS_ITS | Clinical Summary ---
Author Organization [employer] Address [address] [facility] [address] [place] [address] Care Team Providers Care Registered Nurse Supervisor Name Role Phone Neil Bernard JAVI Primary Care Provider [phone] Vaishali Minor PharmD Unavailable [phone] Allergies No known active allergies Medications * [...] sugar 3 times daily 100 each 12 09/23/20 25 11:37 AM EST 024 2024 Active docusate sodium (Colace) 100 MG capsule TAKE 1 CAPSULE BY MOUTH EVERY DAY FOR CONSTIPATION Active esomeprazole (NexIUM) [address] capsule Take 1 capsule by mouth Once per day. Active famotidine (Pepcid) 40 MG tablet Take 40 mg by mouth at bedtime. Active sertraline (Zoloft) 100 MG tablet Take 1 tablet by mouth once daily Active sodium chloride (Martin) 0.65 % nasal sprayIndications :Nasal congestion 2 sprays into each nostril twice daily 30 mL 3 Active insulin pen needle (BD Pen Needle Sienna U/F) 32G x 4 mm miscIndications: Type 2 diabetes mellitus with hyperglycemia (HCC) Use as instructed with insulin administration once daily 100 each 3 09/23/20 25 11:37 AM EST Active atorvastatin (Lipitor) 40 MG tabletIndication s:Hyperlipidemia , unspecified hyperlipidemia type TAKE 1 TABLET BY MOUTH AT BEDTIME 90 tablet 3 Active metFORMIN XR (Glucophage-XR) 500 MG 24 hr tablet TAKE 1 TABLET BY MOUTH TWICE DAILY IN THE MORNING AND IN THE EVENING WITH MEALS 180 tablet 3 Active fenofibrate micronized (Lofibra) 134 [...] medical assistance becomes available. 2 each 2 07/112025 Active cholecalciferol VITAMIN D (Vitamin D-3) 50 MCG (1999) tablet TAKE 1 TABLET BY MOUTH EVERY MORNING 90 tablet 1 Active Continuous Glucose Sensor (FreeStyle Dagmar 2 Plus Sensor) miscIndications: Type 2 diabetes mellitus with hyperlipidemia (HCC) 1 each Use as directed. 2 each 09/19/20 25 2:01 PM EST Active lidocaine (Lidoderm) 5 % patchIndications :Neck pain APPLY 1 PATCH TOPICALLY TO SKIN, LEAVE ON FOR 12 HOURS AND OFF FOR 12 HOURS DIRECTED 30 patch 2 Active nitroglycerin (Nitrostat) 0.3 MG SL tablet DISSOLVE 1 TABLET UNDER THE TONGUE EVERY 5 MINUTES NEEDED FOR ANGINA FOR 10 DAYS. NO MORE THAN 3 DOSES PER EPISODE. CALL 911 IF NO RELIEF AFTER FIRST DOSE Active albuterol 108 (90 Base) MCG/ACT inhalerIndicatio ns:Moderate persistent asthma without complication Inhale 2 puffs every 4 (four) hours. 18 g 5 Active buPROPion SR (Wellbutrin SR) 100 MG 12 hr tabletIndication s:Mixed anxiety and depressive disorder TAKE 1 TABLET BY MOUTH EVERY MORNING 30 tablet 2 09/23/20 11:37 AM EST Active gabapentin (Neurontin) 300 MG capsuleIndicatio ns:Diabetic polyneuropathy associated with type 2 diabetes mellitus (HCC) TAKE 2 CAPSULES BY MOUTH TWICE DAILY IN THE MORNING AND AT BEDTIME 120 capsule 2 09/23/20 11:37 AM EST Active Tiotropium [place] (Spiriva HandiHaler) [address] 1 Act into inhaler and inhale Once per day. USE 1 CAPSULE FOR INHALATION ONCE A DAY DO NOT SWALLOW CAPSULE 30 capsule 5 09/23/20 11:37 AM EST Active Symbicort 160-4.5 MCG/ACT inhaler INHALE 2 PUFFS BY MOUTH TWICE DAILY IN THE MORNING AND AT BEDTIME. RINSE MOUTH AFTER USING. 10.2 g 5 09/23/20 11:37 AM EST Active fluticasone (Flonase) 50 MCG/ACT nasal sprayIndications :Allergic rhinitis, unspecified seasonality, unspecified trigger SPRAY 1 SPRAY IN EACH NOSTRIL TWICE DAILY 48 g 1 Active apixaban (Eliquis) 2.5 MG tabletIndication s:History of pulmonary embolism TAKE 1 TABLET BY MOUTH TWICE DAILY IN THE MORNING AND IN THE EVENING 60 tablet 3 Active acetaminophen (Tylenol 8 Hour) 650 MG ER tabletIndication s:Tear of left supraspinatus tendon Take 1 tablet (650 mg) by mouth every 8 (eight) hours if needed for mild pain for up to 10 days. Do not crush, chew, or split. 30 tablet 09/25/20 8:50 AM EST 025 2024 Active Tirzepatide (Mounjaro) 7.5 MG/0.5ML solution auto-injectorInd ications:Type 2 diabetes mellitus with hyperlipidemia (HCC) Inject 7.5 mg under the skin every 7 (seven) days. 2 mL 1 09/25/20 8:50 AM EST Active insulin glargine (Lantus SoloStar) 100 UNIT/ML penIndications:T ype 2 diabetes mellitus with hyperlipidemia (HCC) INJECT SUBCUTANEOUSLY 28 UNITS ONCE DAILY 15 mL 1 09/25/20 8:50 AM EST 025 Active glucose 4 g chewable tabletIndication s:Type 2 diabetes mellitus with hyperlipidemia (HCC) Chew 4 tablets (16 g) if needed for low blood sugar. 50 tablet 3 025 Active traMADol (Ultram) 50 MG tabletIndication s:Chronic bilateral low back pain without sciatica,Acute pain of left shoulder Take 1 tablet (50 mg) by mouth Once daily as needed for severe pain for up to 28 doses. 28 tablet 025 Active Diclofenac Sodium (Voltaren) 1 % gelIndications:A cute pain of left shoulder Apply up to 4x/d to affected joint(s) for pain/swelling 100 g 2 025 Active magnesium oxide (Mag-Ox) 400 (240 Mg) MG tabletIndication s:Hypomagnesemia Take 1 tablet (400 mg) by mouth 2 times daily. 60 tablet 2 025 Active glucose (Glutose) 40 % gel oral gelIndications:T ype 2 diabetes mellitus with hyperlipidemia (HCC) Use as needed for low blood sugar 45 g 11 2024 Discontinued(P atient refused) acetaminophen (Tylenol Extra Strength) 500 MG tabletIndication s:Chronic maxillary sinusitis Take 1-2 tablets by mouth every 8 hours as needed 30 tablet 2024 Discontinued apixaban (Eliquis) 2.5 MG tabletIndication s:History of pulmonary embolism TAKE 1 TABLET BY MOUTH TWICE DAILY IN THE MORNING AND IN THE EVENING 60 tablet 3 2024 Discontinued magnesium oxide (Mag-Ox) 400 (240 Mg) MG tablet Take 400 mg by mouth in the morning. 2024 Discontinued(R eorder (will not trigger notification to Pharmacy)) Tirzepatide (Mounjaro) 5 MG/0.5ML solution auto-injectorInd ications:Type 2 diabetes mellitus with hyperlipidemia (HCC) Inject 5 mg under the skin every 7 (seven) days. 2 mL 2024 Discontinued(D ose adjustment) insulin glargine (Lantus SoloStar) 100 UNIT/ML penIndications:T ype 2 diabetes mellitus with hyperlipidemia (HCC) INJECT SUBCUTANEOUSLY 34 UNITS ONCE DAILY 15 mL 1 2024 Discontinued(R eorder (will not trigger notification [...] for up to 20 doses. 20 tablet 2024 Discontinued(R eorder (will not [...] here for a HDF Recently admiited to [facility] from 07/23/25-07/24/25 Patient presented for evaluation of [...] 2 diabetes mellitus with hyperlipidemia 03/2013 Hypertension associated with diabetes 07/12/2013 Atherosclerosis of coronary artery 04/17/2013 Old myocardial infarction 04/17/2013 Gastroesophageal reflux disease 08/01/2012 Allergic rhinitis 04/24/2012 Hyperlipidemia 04/24/2012 Asthma 03/30/2012 Chronic obstructive lung disease 03/30/2012 Disorder of skeletal muscle 03/30/2012 Obesity 03/30/2012 Encounters Date Type Department Care Team Description 10/01/2025 2:30 PM EST Office Visit [facility] [address] [place] [phone] Neil Bernard, JAVI Type 2 diabetes mellitus with hyperlipidemia (HCC) (Primary Dx); Atherosclerosis of [place] coronary artery of [place] heart without angina pectoris; Diabetic polyneuropathy associated with type 2 diabetes mellitus ([facility]); Long-term current use of opiate analgesic; Mixed anxiety and depressive disorder; Hypertension associated with diabetes ([facility]); Chronic bilateral low back pain without sciatica; Acute pain of left shoulder; Routine screening for STI (sexually transmitted infection); COPD without exacerbation (CMS/HCC) ([facility]); Hypomagnesemia 10/01/2025 Results Follow-Up [address] [address] Neil Bernard ANP Basic Metabolic Panel, Magnesium 10/01/2025 Telephone [facility] [address] [place] [phone] Neil Bernard ANP Critical lab 10/01/2025 Travel 09/30/[address] [address] Neil Bernard ANP chartprep 09/23/2025 Travel 09/23/2025 Orders Only [facility] [address] [place] [address] Jess Harris CNP Tear of left supraspinatus tendon (Primary Dx) 09/17/2025 Results Follow-Up [facility] [address] [place] [address] Jess Harris CNP MR Shoulder w/o Contrast Left 09/14/[address] [address] Neil Bernard ANP History of pulmonary embolism 09/05/2025 Refill [facility] [address] [place] [address] Shanelle Miller, certified adapted physical educator bilateral low back pain without sciatica 09/05/[address] [address] Neil Bernard ANP Med Refill 08/30/2025 10:30 AM EDT Clinical Support [address] [address] Shanelle Miller, certified adapted physical educator bilateral low back pain without sciatica (Primary Dx) 08/30/2025 Telephone [facility] [address] [place] [address] Shanelle Miller RN 08/30/2025 Travel 08/27/2025 1:00 PM EDT Office Visit [facility] [address] [place] [phone] Jess Harris CNP Chronic bilateral low back pain without sciatica 08/27/2025 Travel 08/26/[address] [address] Neil Bernard ANP Imaging Orders 08/21/[address] [address] Neil Bernard ANP Mixed anxiety and depressive disorder; Diabetic polyneuropathy associated with type 2 diabetes mellitus (HCC); Allergic rhinitis, unspecified seasonality, unspecified trigger 08/20/2025 Refill [facility] [address] [place] [phone] Dina Kulkarni MD Allergic rhinitis, unspecified seasonality, unspecified trigger 08/13/[address] [address] Neil Bernard ANP Results 08/07/2025 Travel 08/06/2025 9:30 AM EDT Office Visit [address] [address] Ramez Schroeder MD Hospital discharge follow-up (Primary Dx); Acute pain of left shoulder; Moderate persistent asthma without complication; Encounter for immunization 08/06/2025 Refill [facility] [address] [place] [address] Shanelle Miller, certified adapted physical educator bilateral low back pain without sciatica 08/06/2025 Refill [facility] [address] [place] [phone] Neil Bernard ANP Chronic bilateral low back pain without sciatica 08/06/2025 Travel 08/05/[address] [address] Neil Bernard ANP Med Refill 08/05/[address] [address] Ramez Schroeder MD chart prep 07/31/2025 Telephone [facility] [address] [place] [phone] Vaishali Minor, PharmD Triage 07/30/[address] [address] Vaishali Minor PharmD Call back request 07/26/[address] [address] Vaishali Minor PharmD 07/25/[address] [address] Veronica Gupta RN Hospital Follow-up 07/23/2025 10:20 AM EDT Office Visit [facility] [address] [address] Nanyc Ma MD Unstable angina (CMS/HCC) (Primary Dx); Chest pain, unspecified type 07/23/2025 Orders Only [facility] External Provider, [facility] 07/23/[address] [address] Adrianna Hammonds RN 07/23/2025 Travel 07/22/2025 Travel 07/19/[address] [address] Neil Bernard ANP nov recall 07/19/2025 Results Follow-Up [address] [address] Neil Bernard ANP Culture, Urine, Routine 07/19/2025 Orders Only [address] [address] Neil Bernard ANP Hypomagnesemia (Primary Dx) 07/05/2025 1:00 PM EDT Office Visit [facility] [address] [place] [phone] Everett Angeles DMD 07/03/2025 2:30 PM EDT Office Visit [facility] [address] [place] [phone] Everett Angeles DMD 07/03/2025 Telephone [facility] [address] [place] [address] Everett Angeles, DMD Dr. Angeles case delivery from Last 3 Months Immunizations Immunization Administration Dates Next Due Hep B, adult 06/26/2012,06/18/2003,05/16/2003 Influenza injectable quadriv alent IIV4 with preservative 09/13/2016 Influenza injectable quadriv alent preservative free 11/18/2023,09/03/2022,09/17/2020,10/18 Influenza, IIV3, injectable 09/09/2014, 1 Influenza, Injectable, MDCK, preservative free 10/03/2015 Influenza, Split (incl. bethanie fied surface antigen) 07/12/2013,08/22/2012 Influenza, seasonal, injecta ble, preservative free 08/06/2025,08/17/2024 Moderna Covid-19 Vaccine 12+ 03/16/2022,02/19/20,01/21/2021 Pfizer Covid-19 [...] your housing situation today? I have kb [place] 11/18/[address] you li [...] Mass Index 28.64 10/01/2025 2:20 PM EST Plan of Treatment Upcoming Encounters Date Type Department Care Team (Late st Contact Info) Description 10/29/2025 11:00 AM EST Medication Management [facility] [address] [place] [address] Vaishali Minor, PharmD [address] [place] [address] 11/18/2025 11:00 AM EST Telemedicine [facility] [address] [place] [address] Shanelle Miller, RN [address] [place] [address] 01/02/2026 10:15 AM EST Office Visit [facility] [address] [place] [address] Linsey Dawkins 01/03/2026 1:00 PM EST Office Visit [facility] [address] [place] [address] Shreya Roberto, OD [address] [place] [address] Health Maintenance Due Date Last Done Comments CT Colonography 1961 FIT DNA/Cologuard 1961 FIT 1961 FOBT 1961 HIV Screening 1960 Sigmoidoscopy 1961 Diabetes: Foot Exam 1971 Hepatitis C Screening 1979 Hepatitis A Vaccines (1 of 2 - Risk 2-dose series) 1980 Pap Smear 1982 Cervical Cancer Screening 1991 HPV/Cotest 1991 Dental Oral Exam 03/25/2025 09/24/2024 COVID-19 Vaccine ( season) 2025 08/17/2024, 03/16/2022, 02/18/2021, Additional history exists Dental X-Ray: Bitewings 09/25/2025 09/24/2024 SDOH Screening 10/10/2025 10/10/2024 Depression Screening 11/23/2025 11/23/2024, 01/17/20 25 Lipid Panel 12/17/2025 12/17/2024, 11/09, 01/27/2022, Additional history exists Dental Prophylaxis 12/26/2025 06/24/2025, 11/14/2024 Diabetes: Hemoglobin A1C 01/01/2026 025, 08/06/2025, 05/15/2025, Additional history exists Colonoscopy 01/09/2026 01/09/2025, 030 03/2025, 04/15/2015 Colorectal Cancer Screening 01/09/2026 Disability Screening 05/31/2026 05/31/2025 Mammogram 06/11/2026 06/11/2025, 0 03/2025, 06/11/2025, Additional history exists Alcohol/Substance Use Screening 10/01/2026 10/01/2025 Diabetes: Urine Protein Screening 10/01/2026 10/01/2025, 10/12/2024, 10/12/2024, Additional history exists Tobacco Screening 10/01/2026 10/01/2025 Eye Exam 12/11/2026 12/11/2024, 020 02/2025, 12/11/2024, Additional history exists Dental X-Ray: Full Mouth 09/25/2027 09/24/2024, 07/08 DTaP/Tdap/Td Vaccines (3 - Td or Tdap) 11/18/2033 11/18/2023, 07/12/2013, 05/19/2006 Hepatitis B Vaccines Completed 06/26/2012, 06/18/2003, 05/16/2003 Zoster Vaccines Completed 07/28/2020, 11/08/2019 Pneumococcal Vaccine: 50+ Years Completed 12/10/2024, 06/26/2012 [...] on patient's age to complete this topic Goals Goal Patient Goal Type Associated Problems [...] Care Plan Weekly blood pressure task No Rolos-Dana Soaressa, PharmD Weekly blood pressure task Care Plan Weekly blood pressure task No Rolos-Soares Vaishali, PharmD Weekly blood pressure task Care Plan Weekly blood pressure task No Piers-Soares Vaishali, PharmD Patient has chronic kidney disease Care Plan Patient has chronic kidney disease No Rolos-Soares Vaishali, PharmD Patient has chronic kidney disease Care Plan Patient has chronic kidney disease No Rolos-Soares Vaishali, PharmD Patient has chronic kidney disease [...] Care Plan Weekly blood pressure task No Harris, Alexxis, ZOO VETERINARIAN Weekly blood pressure task Care Plan Weekly blood pressure task No Harris, Alexxis, ZOO VETERINARIAN Weekly blood pressure task Care Plan Weekly blood pressure task No Harris, Alexxis, ZOO VETERINARIAN Patient has chronic kidney disease Care Plan Patient has chronic kidney disease No Harris, Alexxis, ZOO VETERINARIAN Patient has chronic kidney disease Care Plan Patient has chronic kidney disease No Harris, Alexxis, ZOO VETERINARIAN Patient has chronic kidney disease Care Plan Patient has chronic kidney disease No Harris, Alexxis, ZOO VETERINARIAN Patient has diabetic neuropathy Care Plan Patient has diabetic neuropathy No Harris, Alexxis, ZOO VETERINARIAN Patient has diabetic neuropathy Care Plan Patient has diabetic neuropathy No Harris, Alexxis, ZOO VETERINARIAN Patient has diabetic neuropathy Care Plan Patient has diabetic neuropathy No Harris, Alexxis, ZOO VETERINARIAN Weekly blood pressure task Care Plan Weekly [...] Care Plan Weekly blood pressure task No Debbie Daugherty RN Weekly blood pressure task Care Plan Weekly blood pressure task No Debbie Daugherty RN Weekly blood pressure task Care Plan Weekly blood pressure task No Debbie Daugherty RN Patient has chronic kidney disease Care Plan Patient has chronic kidney disease No Debbie Daugherty RN Patient has chronic kidney disease Care Plan Patient has chronic kidney disease No Debbie Daugherty RN Patient has chronic kidney disease Care Plan Patient has chronic kidney disease No Debbie Daugherty RN Patient has diabetic neuropathy Care Plan Patient has diabetic neuropathy No Debbie Daugherty RN Patient has diabetic neuropathy Care Plan Patient has diabetic neuropathy No Debbie Daugherty, MENDEL Patient has diabetic neuropathy Care Plan Patient has diabetic neuropathy No Debbie Daugherty RN Weekly blood pressure task Care [...] has diabetic neuropathy No Neil Bernard ANP Procedures Procedure Name Priority Date/Time Associated Diagnosis Comments MAGNESIUM Routine 10/01/2025 2:54 PM EST Hypomagnesemia BASIC METABOLIC PANEL Routine 10/01/2025 2:54 PM EST Hypomagnesemia ALBUMIN, RANDOM URINE W/CREATININE Routine 10/01/2025 2:43 PM EST Hypertension associated with diabetes (HCC) POCT GLYCATED HEMOGLOBIN, TOTAL Routine 10/01/2025 2:24 PM EST Type 2 diabetes mellitus with hyperlipidemia (HCC) POCT GLUCOSE Routine 10/01/2025 2:22 PM EST Type 2 diabetes mellitus with hyperlipidemia (HCC) MR SHOULDER WO CONTRAST LEFT Routine 09/16/2025 [...] DENTURE (LABORATORY) Routine 07/03/2025 2:30 PM EDT PROPHYLAXIS - ADULT Routine 06/24/2025 3 :00 PM EDT BI US BREAST LIMITED LEFT Routine 06/11/2025 10:30 AM EDT Breast pain, left HM COLONOSCOPY Routine 01/09/2025 8:51 AM EST LIPID PANEL, STANDARD Routine 12/17/2024 6:58 AM EST INTRAORAL - COMPLETE SERIES OF RADIOGRAPHIC IMAGES Routine 09/24/2024 1:00 PM EST PERIODIC ORAL EVALUATION - ESTABLISHED PATIENT Routine 09/24/2024 1:00 PM EST from Last 3 Months or Most Recently Relevant to Health Maintenance Results * (ABNORMAL) Magnesium (10/01/2025 2:54 PM EST) Magnesium 1.4(LL) 1.6 - 2.6 mg/dL [facility] Comment:Critical value for t est(s): MAGS Results called to and readback by: DEBBIE Jones Person calling: [email or web address] Date: 10/01/25Time:1637 Blood Venous blood specimen / Unknown 10/01/2025 2:54 PM EST 10/01/2025 4:08 PM EST Neil Bernard ANP LAB BLOOD ORDERABLES Final Resul t Performing Organization Address [facility] de Phone Number [facility] [address] [place] [phone] * (ABNORMAL) Basic Metabolic Panel (10/01/2025 2:54 PM EST) Sodium 140 135 - 145 mmol/L [facility] Potassium 4.3 3.3 - 5.1 mmol/L [facility] Chloride 107 96 - 108 mmol/L [facility] Carbon Dioxide 26 22 - 29 mmol/L [facility] Anion Gap 11(L) 12 - 20 [facility] Urea Nitrogen (BUN) 16 9 - 16 mg/dL [facility] Creatinine, Serum 1.21 0.5 - 1.4 mg/dL [facility] Estimated Glomerular Filt Rate 45 [facility] Comment:Chronic Kidney Disea se: Estimated GFR < 60 mL/min/[id number] Kidney Disease: Estimated GFR < 15 mL/min/1.73m2 Glucose 138(H) 60 - 115 mg/dL [facility] Calcium 10.5(H) 8.4 - 10.2 mg/dL [facility] Blood Venous blood specimen / Unknown 10/01/2025 2:54 PM EST 10/01/2025 4:08 PM EST Neil Bernard ANP LAB BLOOD ORDERABLES Final Resul t Performing Organization Address [facility] Co de Phone Number [facility] [address] [place] [phone] * Albumin, Random Urine W/Creatinine (10/01/2025 2:43 PM EST) Creatinine, Urine 80.26 mg/dL [facility] Microalbumin Urine 14.0 mg/L [facility] Microalbum Creatinine Ratio Ur 17.4 <30 ug/mg cr [facility] Comment:Albumin/Creatinine R atio Reference Ranges: Normal: < 30 ug/mg creatinine Microalbuminuria: 30 - 300 ug/mg creatinineClinical Albuminuria: > 300 ug/mg creatinine Urine (Urine, Random) 10/01/2025 2:43 PM EST 10/01/2025 4:14 PM EST Neil Bernard [facility] LAB URINE ORDERABLES Final Resul t [facility] [address] [place] [address] [phone] * (ABNORMAL) POCT Hgb A1c (10/01/2025 2:24 PM EST) Hemoglobin A1C 7.7(A) 4.0 - 5.7 % QC Media Lot # [id number] Lot# Expiration Date Blood 10/01/2025 2:24 PM EST Neil Bernard [facility] POINT OF CARE TEST ENTER/EDIT OR DERABLES Final Result * (ABNORMAL) POCT Glucose (10/01/2025 2:22 PM EST) Only the most recent of2 resultswithin the time period is included. Glucose Blood, POC 201(A) 60 - 200 mg/dL QC Media Lot # [id number] Lot# Expiration Date , Blood Capillary blood specimen / Unknown 10/01/2025 2:22 PM EST Neil Bernard [facility] POINT OF CARE TEST ENTER/EDIT OR DERABLES Final Result * MR Shoulder w/o Contrast Left (09/16/2025 4:30 PM EST) Anatomical Region Laterality Modality Upper Extremities, Shoulder Left Magn etic Resonance 09/16/2025 4:30 PM EST Narrative 09/16/2025 5:39 PM EST [address] [address] Magnetic Resonance Report Signed Patient: Joelle Myers I MR#: [id number] : 1960 Acct:[id number] Age/Sex: 65 / F ADM Date: 09/16/25 Loc: HO.MRI Attending Dr: Jess Harris NP Ordering Physician: Jess Harris NP Date of Service: 09/16/25 Procedure(s): MR shoulder LT wo con Accession Number(s): [id number] cc: [facility]; Jess Harris NP Reason for Exam: [...] by: Dell Nelson MD 09/16/2025 05:36 PM [facility] Dictated By: Dell Nelson MD Signed By: <Electronically signed by Dell Nelson MD in OV> 09/16/25 1736 DD/ 1630 TD/TT: 09/16/25 1655 Grain Elevator Clerk: Procedure Note Donotuseinterpreter, Image - 09/16/[address] [address] Magnetic Resonance Report Signed Patient: Joelle Myers IMR#: [id number] : 1960cct:[id number] Age/Sex: 65 / FADM Date: 09/16/25 Loc: HO.MRI Attending Dr: Jess Harris NP Ordering Physician: Jess Harris NP Date of Service: 09/16/25 Procedure(s): MR shoulder LT wo con Accession Number(s): [id number] cc: [facility]; Jess Harris NP Reason for Exam: [...] by: Dell Nelson MD 09/16/2025 05:36 PM EST Dictated By: Dell Nelson MD Signed By: <Electronically signed by Dell Nelson MD in OV> 09/16/25 1736 DD/ 1630 TD/TT: 09/16/25 1655 Grain Elevator Clerk: [facility] IMG MRI PROCEDURES Edited Result - Final * (ABNORMAL) POCT JAMES-14 Urine Drug Screen [...] - 08/30/2025 10:41 AM EDT .UTOX cup Lot#[id number] Exp. 08/13/26 Internal Pass Control Neil Bernard [facility] POINT OF CARE TEST ENTER/EDIT OR DERABLES Final Result * XR Humerus Left (08/06/2025 10:30 AM EDT) Anatomical Region Laterality Modality Upper Extremities, Humerus Left Radio graphic Imaging 08/06/2025 10:3 0 AM EDT Narrative 08/06/2025 10:38 AM EDT [address] [address] XRay Report Signed Patient: Joelle Myers I MR#: [id number] : 1960 Acct:[id number] Age/Sex: 65 / F ADM Date: 08/06/25 [facility]: Ramez Newman MD Ordering Physician: Ramez Newman MD Date of Service: 08/06/25 Procedure(s): XR humerus LT Accession Number(s): [id number] cc: Ramez Newman MD; NEIL BERNARD NP [...] 08/06/25 1036 DD/ 1030 TD/TT: 08/06/25 1031 Grain Elevator Clerk: Procedure Note Donotuseinterpreter, Image - 08/06/[address] [address] XRay Report Signed Patient: Joelle Myers IMR#: [id number] : 1960cct:[id number] Age/Sex: 65 / FADM Date: 08/06/25 Loc: HO.[facility] Attending Dr: Ramez Newman MD Ordering Physician: Ramez Newman MD Date of Service: 08/06/25 Procedure(s): XR humerus LT Accession Number(s): [id number] cc: Ramez Newman MD; NEIL BERNARD NP [...] 08/06/25 1036 DD/ 1030 TD/TT: 08/06/25 1031 Grain Elevator Clerk: Ramez Perkins MD IMG XR PROCEDURES Quentin laura Result - Final * XR Shoulder 2+ Views Left (08/06/2025 10:30 AM EDT) Anatomical Region Laterality Modality Upper Extremities, Shoulder Left Radi ographic Imaging 08/06/2025 10:3 0 AM EDT Narrative 08/06/2025 10:39 AM EDT [address] [address] XRay Report Signed Patient: Joelle Myers I MR#: [id number] : 1960 Acct:[id number] Age/Sex: 65 / F ADM Date: 08/06/25 Loc: HO.HHCX Attending Dr: Ramez Newman MD Ordering Physician: Ramez Newman MD Date of Service: 08/06/25 Procedure(s): XR shoulder LT min 2V Accession Number(s): [id number] cc: Ramez Newman MD; NEIL BERNARD NP [...] 08/06/25 1036 DD/ 1030 TD/TT: 08/06/25 1031 Grain Elevator Clerk: Procedure Note Donotuseinterpreter, Image - 08/06/2025 [place] [address] XRay Report Signed Patient: Joelle Myers IMR#: [id number] : 1960cct:[id number] Age/Sex: 65 / FADM Date: 08/06/25 Loc: HO.HHCX Attending Dr: Ramez Newman MD Ordering Physician: Ramez Newman MD Date of Service: 08/06/25 Procedure(s): XR shoulder LT min 2V Accession Number(s): [id number] cc: Ramez Newman MD; NEIL BERNARD NP [...] 08/06/25 1036 DD/ 1030 TD/TT: 08/06/25 1031 Grain Elevator Clerk: us Ramez Perkins MD IMG XR PROCEDURES Quentin laura Result - Final * (ABNORMAL) POCT glycosylated hemoglobin (Hgb A1c) (08/06/2025 10:04 AM EDT) Hemoglobin A1C 8.4(A) 4.0 - 5.7 % QC Media Lot # [id number] Lot# Expiration Date [id number] Blood Capillary blood specimen / Unknown 08/06/2025 10:04 AM EDT us Ramez Perkins MD POINT OF CARE TEST EN TER/EDIT ORDERABLES Final Result * NM heart perfusion SPECT stress and rest (07/24/2025 8:55 AM EDT) Anatomical Region Laterality Modality Body Nuclear Medicine 07/24/2025 8:55 AM EDT Narrative 07/24/2025 12:32 PM EDT [address] [address] Nuclear Medicine Report Signed Patient: Joelle Myers I MR#: [id number] : 1960 Acct:[id number] Age/Sex: 65 / F ADM Date: 07/23/25 Loc: [facility] 486-[address]: Georgette Cohen MD Ordering Physician: Rashid Recinos MD Date of Service: 07/24/25 Procedure(s): NM ramon perf SPECT rest str Accession Number(s): [id number] cc: NEIL BERNARD NP; Rashid Reicnos MD Reason for Exam: chest pain Lexiscan [...] 07/24/25 1230 DD/ 0855 TD/TT: 07/24/25 1115 Grain Elevator Clerk: Procedure Note Donotuseinterpreter, Image - 07/24/[address] [address] Nuclear Medicine Report Signed Patient: Joelle Myers IMR#: [id number] : 1Acct:[id number] Age/Sex: 65 / FADM Date: 07/23/25 Loc: [facility] 486-[address]: Georgette Cohen MD Ordering Physician: Rashid Recinos MD Date of Service: 07/24/25 Procedure(s): NM ramon perf SPECT rest str Accession Number(s): [id number] cc: NEIL BERNARD NURSE EMERGENCY; Rashid Recinos MD Reason for Exam: chest [...] 07/24/25 1230 DD/ 0855 TD/TT: 07/24/25 1115 Grain Elevator Clerk: [facility] External Provider IMG NM PROCEDURES Edited Result - Final * ECG 12 lead (07/23/2025 10:58 AM EDT) Nancy Winter MD - 07/23/2025 10:58 AM EDT NSR at 77bpm. No ischemia or infarction. Nancy Ma MD ECG ORDERABLES Final Result * BI US Breast Limited Left (06/11/2025 10:30 AM EDT) Anatomical Region Laterality Modality Breast Left Ultrasound 06/11/2025 10:3 0 AM EDT Narrative 06/11/2025 10:59 AM EDT [facility] [place] [address] Ultrasound Report Signed Patient: Joelle Myers I MR#: [id number] : 1960 Acct:[id number] Age/Sex: 64 / F ADM Date: 06/11/25 Loc: HO.MAMMO Attending Dr: Neil Bernard NP Ordering Physician: NEIL BERNARD NP Date of Service: 06/11/25 Procedure(s): US breast LT limited Accession Number(s): [id number] cc: NEIL BERNARD NP EXAMINATIONS: 1. MM [...] 06/11/25 1056 DD/ 1030 TD/TT: 06/11/25 1049 Grain Elevator Clerk: Procedure Note Donotuseinterpreter, Image - 06/11/2025 [facility] [address] [place] [address] Ultrasound Report Signed Patient: Joelle Myers [facility]#: [id number] : 1960cct:[id number] Age/Sex: 64 / FADM Date: 06/11/25 Loc: HO.MAMMO Attending Dr: Neil Bernard NP Ordering Physician: NEIL BERNARD NP Date of Service: 06/11/25 Procedure(s): US breast LT limited Accession Number(s): [id number] cc: NEIL BERNARD NP EXAMINATIONS: 1. MM [...] 06/11/25 1056 DD/ 1030 TD/TT: 06/11/25 1049 Grain Elevator Clerk: Neil Bernard ANP IMG US PROCEDURES Edited Result - Final * Colonoscopy (01/09/2025 8:51 AM EST) Historical Provider HEALTH MAINTENANCE Final Result * Lipid Panel, Standard (12/17/2024 6:58 AM EST) Triglycerides 58 <150 mg/dL [facility] Comment:Desirable Triglyceri de: less than 150 mg/dLBorderline High Triglyceride 150-199 mg/dLHigh Triglyceride: 200-499 mg/dLVery High Triglyceride: greater than or equal to 5OO mg/dL Cholesterol 106 <200 mg/dL [facility] Comment:Desirable Cholestero l: less than 200 mg/dLBorderline High Cholesterol: 200-239 mg/dLHigh Cholesterol: greater than 239 mg/dL LDL Cholesterol Calculated 45 <100 mg/dL [facility] Comment:Desirable LDL: less than 100 mg/dLNear Optimal/Above Optimal LDL: 110- 129 mg/dLBorderline High LDL: 130-159 mg/dLHigh LDL: 160-189 mg/dLVery High LDL: greater than or equal to 190 mg/dL HDL Cholesterol 50 >40 mg/dL [facility] Comment:Desirable HDL: great er than 40 mg/dL Note: This HDL assay may give artificially low results in patients with liver disease. 12/17/2024 6:58 AM EST 12/17/2024 6:58 AM EST Result [facility] Neli Bernard ANP LAB BLOOD ORDERABLES Final Resul t [facility] [address] [place] [address] [phone] from Last 3 Months or Most Recently Relevant to Health Maintenance Additional Health Concerns Active Problems Noted Date [...] neuropathy 10/01/2025 Patient has diabetic neuropathy 10/01/2025 Insurance [facility] C[facility] STAND ADULT Care Teams Registered Nurse Supervisor Relationship Specialty Start Date End Date Neil Bernard ANP [address] [place] [address] PCP - General Family Medicine 07/07/20 Vaishali Minor PharmD [address] [place] [address] Pharmacist Internal Medicine 10/29/24 Clarence Perkins Records Management TechnicianCity Alderman 06/24/25
--- OUTSIDE RECORDS SUMMARY | 2025-10-01 18:37 | XMS_ITS | Encounter Summary ---
Author Organization [employer] Address [address] [facility] [address] [place] [address] Care Team Providers Care Dairy Technician Name Role Phone Sepideh Hopkins Primary Care Provider [phone] Vaishali Minor PharmD Unavailable Reason for Visit * Reason Comments Med Refill Encounter Details Date Type Department Care Team ([facility] Contact Info) Description 01/05/2023 Refill [facility] MEDICINE [address] [place] [address] Sepideh Hopkins ANP [address] [place] [address] Social History Tobacco Use Types Packs/Day Years [...] Upcoming Encounters Date Type Department Care Team ([facility] Contact Info) Description 10/29/2025 11:00 AM EST Medication Management [facility] MEDICINE [address] [place] [address] Vaishali Minor, PharmD [address] [place] [address] 11/18/2025 11:00 AM EST Telemedicine [facility] CHC MED & PEDS [address] [place], [place] [phone] Shanelle Miller, RN [address] [place], [place] 01/02/2026 10:15 AM EST Office Visit [facility] ADULT DENTAL [address] [place] [address] Linsey Dawkins 01/03/2026 1:00 PM EST Office Visit [facility] OPTOMETRY [address] [place], [place] [phone] Shreya Roberto, OD [address] [place] [address] documented as of this encounter Visit Diagnoses Not on filedocumented in this encounter Care Teams Dairy Technician Relationship Specialty Start Date End Date Sepideh Hopkins ANP [address] [place] [address] PCP - General Family Medicine 07/07/20 Vaishali Minor PharmD [address] [place] [address] Pharmacist Internal Medicine 10/29/24 Clarence Perkins Electric Engine MechanicVeneer Clipper Helper 06/24/25 documented as of this encounter
--- OUTSIDE RECORDS SUMMARY | 2025-10-01 18:37 | XMS_ITS | Encounter Summary ---
Author Organization [employer] Address [address] [facility] 7t [place] [address] Care Team Providers Care Hardboard Factory Worker Name Role Phone Sepideh Hopkins Primary Care Provider [phone] Vaishali Minor PharmD Unavailable [phone] Encounter Details Date Type Department Care Team ([facility] st Contact Info) Description 05/02/2025 Orders Only [facility] MEDICINE [address] [place] [address] Sepideh Hopkins ANP [address] [place] [address] Social History Tobacco Use Types Packs/Day Years [...] Description 10/29/2025 11:00 AM EST Medication Management [facility] MEDICINE [address] [place] [address] Vaishali Minor, PharmD [address] [place] [address] 11/18/2025 11:00 AM EST Telemedicine [facility] CHC MED & PEDS [address] [place] [address] Shanelle Miller, RN [address] [place] [address] 01/02/2026 10:15 AM EST Office Visit [facility] ADULT DENTAL [address] [place] [address] Linsey Dawkins 01/03/2026 1:00 PM EST Office Visit [facility] OPTOMETRY [address] [place] [address] Shreya Roberto, OD [address] [place] [address] documented as of this encounter Visit Diagnoses Not on filedocumented in this encounter Additional Health Concerns Assessment Noted Time PHQ-9 Depression Total Score: 5 11/23/19 1:05 PM EST documented as of this encounter Care Teams Hardboard Factory Worker Relationship Specialty Start Date End Date Sepideh Hopkins ANP [address] [place] [address] PCP - General Family Medicine 07/07/20 Vaishali Minor PharmD [address] [place] [address] Pharmacist Internal Medicine 10/29/24 Clarence Perkins Marketing PlannerNutritional Services Cook 06/24/25 documented as of this encounter
--- OUTSIDE RECORDS SUMMARY | 2025-10-01 18:37 | XMS_ITS | Encounter Summary ---
Author Organization [employer] Address [address] [facility] [address] [place] [address] Care Team Providers Care Sponsorship Coordinator Name Role Phone Sepideh Hopkins Primary Care Provider [phone] Vaishali Minor PharmD Unavailable Reason for Visit * Reason Comments Med Refill Encounter Details Date Type Department Care Team (Late Contact Info) Description 06/16/2023 Refill [facility]INE [address] [place] [address] Tisha Cornelius FNP Social History Tobacco Use [...] 11:00 AM EST Medication Management [facility] [address] [place] [address] Vaishali Minor, PharmD [address] [place] [address] 11/18/2025 11:00 AM EST Telemedicine [facility] CHC MED & PEDS [address] [place], [place] [phone] Shanelle Miller, MENDEL [address] [place] [address] 01/02/2026 10:15 AM EST Office Visit [facility] ADULT DENTAL [address] [place] [address] Linsey Dawkins 01/03/2026 1:00 PM EST Office Visit [facility] OPTOMETRY [address] [place] [address] Shreya Roberto, OD [address] [place] [address] documented as of this encounter Visit Diagnoses Not on filedocumented in this encounter Care Teams Sponsorship Coordinator Relationship Specialty Start Date End Date Sepideh Hopkins ANP [address] [place], [place] [phone] PCP - General Family Medicine 07/07/20 Vaishali Minor PharmD [address] [place], [place] [phone] Pharmacist Internal Medicine 10/29/24 Clarence Perkins Physician NeonatologySoftware Computer Specialist 06/24/25 documented as of this encounter
--- OUTSIDE RECORDS SUMMARY | 2025-10-01 18:37 | XMS_ITS | Encounter Summary ---
Author Organization [employer] Address [address] [facility] 7t [place] [address] Care Team Providers Care Corporate Manager Name Role Phone Sepideh Hopkins JAVI Primary Care Provider [phone] Vaishali Minor PharmD Unavailable Reason for Visit * Reason Onset Date Comments Results 09/17/2025 Medication Question 09/17/2025 Encounter Details Date Type Department Care Team ([facility] st Contact Info) Description 09/17/2025 Results Follow-Up [facility] CHC MED & PEDS [address] [place], [place] [phone] Jess Harris, GUEST SERVICE SUPERVISOR [address] [place], [place] [phone] MR Shoulder w/o Contrast Left Social History Tobacco Use Types Packs/Day Years [...] Telephone Encounter - Veronica Gupta RN - 09/20/2025 2:02 PM EST Telephone call placed to pt utilizing S #[id number] regarding below messages. Inquired if interested in ortho referral for possible joint injection or other treatment. Pt very interested and would like the referral to be placed TERRANCE so that she can make an appointment. Pt reports that she has PT appointment 10/08/25 which was the soonest they could schedule her. Pt reports she is still in a lot of pain and she can't sleep at night because of it. She reports that she is out of tramadol but doesn't want more because she doesn't want to take it anymore. She reports for her pain she is just taking Tylenol 650mg 1 tab Q6hrs. Is wondering if we can send a script for it as she is going to run out soon. Informed I would send request. Pt denied having any other concerns at this time and agrees with POC. I can also refer to ortho to discuss alternatives for treatment including possible steroid injection. * Telephone Encounter - Sarahy Perdue - 09/20/2025 11:10 AM EST Tc from pt requesting a call back to discuss pain , states was waiting money market dealer from nurse but it has been a couple days and pain is so bad she can not sleep Contact pt at [phone] (irish) * Result Encounter Note - Jess Harris CNP - 09/17/2025 3:07 PM EST I can also refer to ortho to discuss alternatives for treatment including possible steroid injection. * Telephone Encounter - Kacey Vasquez RN - 09/17/2025 2:11 PM EST Telephone call to pt via [employer] [id number]. Informed pt that MRI of the left shoulder shows tendinopathy and that physical therapy is recommended. Pt states I'm already in pain, why should I go there and be in pain, can she give me something for my pain? Bag Presser explained that provider recommendation is for physical therapy to help with pain over time and message can be sent to provider regarding pain management. Pt already has physical therapy referral on file from Dr. Castillo from 08/06/25. Gave pt phone number to call for [facility]. Pt then brought up tramadol prescription. She states she is taking tramadol Q6 hours for her shoulder pain. RN explained that this Rx is for short term purpose for chronic low back pain and shoulder pain and it is supposed to be 1 tablet daily for severe pain, informed her that if she is taking more than this it is not safe. Pt states the pain is so bad, if you do not help with this, I am thinking about cutting off my arm. Informed her RN is sorry that she is in pain, will send high priority message to provider to advise on pain management. Pt states I cannot take ibuprofen. Pt verbalizedunderstanding, no further questions. * Telephone Encounter - Kacey Vasquez RN - 09/17/2025 2:05 PM EST ----- Message from Jess Harris sent at 09/17/2025 9:58 AM EST ----- Please let pt know her MRI of L shoulder shows tendinopathy. I can refer her to PT if interested, thank you! ----- Message ----- From: Blade Alfonso Results In Sent: 09/16/2025 5:40 PM EST To: Jess Harris CNP * Result Encounter Note - Jess Harris CNP - 09/17/2025 9:58 AM EST Please let pt know her MRI of L shoulder shows tendinopathy. I can refer her to PT if interested, thank you! documented in this encounter Plan of Treatment Upcoming Encounters Date Type Department Care Team (Late st Contact Info) Description 10/29/2025 11:00 AM EST Medication Management [facility] MEDICINE [address] [place] [address] Vaishali Minor, PharmD [address] [place] [address] 11/18/2025 11:00 AM EST Telemedicine [facility] CHC MED & PEDS [address] [place] [address] Shanelle Miller, RN [address] [place] [address] 01/02/2026 10:15 AM EST Office Visit [facility] ADULT DENTAL [address] [place] [address] Linsey Dawkins 01/03/2026 1:00 PM EST Office Visit [facility] OPTOMETRY [address] [place] [address] Shreya Roberto, OD [address] [place] [address] documented as of this encounter Visit Diagnoses Not on filedocumented in this encounter Additional Health Concerns Assessment Noted Time PHQ-9 Depression Total Score: 5 11/23/19 25 1:05 PM EST documented as of this encounter Care Teams Corporate Manager Relationship Specialty Start Date End Date Sepideh Hopkins ANP [address] [place] [address] PCP - General Family Medicine 07/07/20 Vaishali Minor, Leonidas [address] [place] [address] Pharmacist Internal Medicine 10/29/24 Clarence Perkins Oxygraph OperatorAppraiser 06/24/25 documented as of this encounter
--- OUTSIDE RECORDS SUMMARY | 2025-10-01 18:37 | XMS_ITS | Data Portability ---
Author Organization [place] [facility] Address [address] [place] [phone] Assessment No assessment recorded. Plan of Treatment Reminders Order Date Submit Date Provider Last Modified By Organization Details Last Modified Time Details Appointments None recorded. Lab None recorded. Referral None recorded. Procedures None recorded. Surgeries None recorded. Imaging CT, sinuses, w/o contrast 2024 MALLY Ents Of [address], [address], 17:15:00 Medication Orders None recorded. Patient TargetsNo targets recorded. Patient InstructionsNo instructions recorded. Reason for Referral None Reported. Results Created Date Observation Date Name Description Value Unit Range Abnormal Flag Note LastModifiedBy Organization Detail LastModifiedTime 09/03/20 CT, sinus es, w/o contr ast No observ ation record ed. [email or web address] Ents Of [address], [address], 09/03/2025 15:13:16 09/03/20 25 audio gram No observ ation record ed. BARCODE Not Available 2024 18:40:21 09/28/2009/03/2025 CT, sinus es, w/o contr ast No observ ation record ed. [facility] Of [address], [address], 09/30/2025 09:38:10 Result Notes None recorded. Problems Name Problem SNOMED Code Status Onset Date Resolution Date Notes Provider Name and Address Organization Details Recorded Time Dizziness and giddiness 323856669 Active 2024 JENNA BENNETT [address] [address], [place], [address], [facility] - [facility] 14:35:35 Pain in face 84448851 Active 2024 KENISHA Bowling MD [address] [address], [place], [address], [facility] - [facility] [place] 15:12:20 Maxillary sinusitis 28642803 Active 2024 KENISHA Bowling MD [address] [place] [address], [place], [address], [facility] - [facility] 15:12:24 Impacted cerumen in right ear 34903941861960 03 Active 2024 KENISHA Bowling MD [address] [place] [address], [place], [address], [facility] [place] 15:14:29 Problem Notes None recorded. Procedures Surgical History Date Name Laterality Status Provider Name and Address Organization Details Recorded Time Cerumen removal without microscope right completed KENISHA GRAHAM MD [address] [place] [address], [phone], [facility] 09/03/2025 15:13:45 NasalEndoscopy_ DP completed KENISHA GRAHAM MD [address] [place] [address], [address], [facility] 09/03/2025 15:02:56 Air & Speech Audio with Tymps - 26688, 19299 & 97235 completed JENNA BENNETT [address] [place] [address], [phone], [facility] 09/03/2025 14:35:25 Imaging Results None recorded. [...] powder MIX DIRECTED AND TAKE DIRECTED BY [facility] active Not Available Not Available No t [...] Available No t Available FreeStyle Dagmar 2 [place] USE DIRECTED EVERY 8 HOURS active Not [...] Available No t Available FreeStyle Dagmar 3 [place] USE DIRECTED TO TEST BLOOD SUGAR active Not Available Not Available No t Available FreeStyle Dagmar 2 Plus Sensor device USE DIRECTED active Not Available Not Available No t Available Vitals Date Recorded Body height Body mass index (BMI) Body weight Systolic And Diastolic Provider Name and Address Organization Details Last Updated DateTime 09/03/2025 154.94 cm 28.7 kg/m2 31387.04 g 115/76 mm[Hg] Roosevelt Mclaughlin [place] - [facility] 09/03/2025 14:53:48 Social History None recorded. [...] ICD10 Code Diagnosis IMO Codes Diagnosis Note [id number] KENISHA GRAHAM MD [facility] [address] [address] 09/03/2025 14:18:21 09/03/2025 15:40:06 Dizziness and giddiness 618021311 R42 02666 Right Ear:Normal hearing with excellent speech discrimina tion.Type A tympanogra m.Left Ear:Normal hearing with excellent speech discrimina tion.Type A tympanogra m. Audio was normal Tang Hallpike was normal. I don't feel her dizziness is otologic in nature. I recommend observatio n. Pain in face 21204345 R5 1.9 430841 Maxillary sinusitis 8834 8008 J32.0 54387[address] I recommend a CT sinus to see [...] n. Impacted c erumen in right ear 5900596579 936591 H61.21 8816396 Recurrent Cerumen Impactions : Ears were meticulous [...] Member ID Guarantor Name 02/04/2025 1 [place] [facility] Joelle yMers [id number] Joelle Myers 09/03/2025 1 [place] [facility] Joelle Escobedo [id number] Joelle Myers Notes Date Note Type Note Provider Name and Address Organization Details Recorded Time 09/03/2025 text/html ROS as noted in the HPI She presents with concern for sinusitis. She has frontal and maxillary facial pain. It usually resolves within a day or two. She had a CT head in January at [place] which showed left maxillary sinusitis. She was put on a prolonged course of abx. She was having dizziness. Her dizziness has improved. She denies room spinning vertigo. She has some current frontal pressure. She does endorse allergy to pollen. She has tried cetirizine and flonase with minimal relief. Audio showed borderline normal hearing. KENISHA GRAHAM MD [address] [place] [address], [phone], [facility] - [facility] 09/03/2025 17:12:21 OBGyn Episode No OBEpisode recorded.
--- OUTSIDE RECORDS SUMMARY | 2025-10-01 18:37 | XMS_ITS | Encounter Summary ---
Author Organization [employer] Address 75 [facility] 7t [place] [address] Care Team Providers Care Operations Coordinator Name Role Phone Sepideh Hopkins Primary Care Provider [phone] Vaishali Minor PharmD Unavailable Reason for Visit * Reason Comments Med Refill Encounter Details Date Type Department Care Team ([facility] st Contact Info) Description 06/27/2025 Refill [facility] MED & PEDS [address] [place], [place] [phone] Sepideh Hopkins ANP 230 [facility] [place] [address] Chronic bilateral low back pain without sciatica [...] Description 10/29/2025 11:00 AM EST Medication Management [facility] MEDICINE 230 [place] [address] Vaishali Minor, PharmD 230 [place] [address] 11/18/2025 11:00 AM EST Telemedicine [facility] MED & PEDS 505 [place] [address] Shanelle Miller, RN 505 [place] [address] 01/02/2026 10:15 AM EST Office Visit [facility] ADULT DENTAL 230 [place] [address] Linsey Dawkins 01/03/2026 1:00 PM EST Office Visit [facility] OPTOMETRY [address] [place] [address] Shreya Roberto, OD 230 [place] [address] documented as of this encounter Visit Diagnoses Diagnosis Chronic bilateral low back pain without sciatica documented in this encounter Additional Health Concerns Assessment Noted Time PHQ-9 Depression Total Score: 5 11/23/19 25 1:05 PM EST documented as of this encounter Care Teams Operations Coordinator Relationship Specialty Start Date End Date Sepideh Hopkins ANP 230 [place] [address] PCP - General Family Medicine 07/07/20 Vaishali Minor PharmD 230 [place] [address] Pharmacist Internal Medicine 10/29/24 Clarence Perkins Helper Metal HangingInvestigation Division Sergeant 06/24/25 documented as of this encounter
--- OUTSIDE RECORDS SUMMARY | 2025-10-01 18:37 | XMS_ITS | Encounter Summary ---
Author Organization [employer] Address 75 [facility] 7t [place] [address] Care Team Providers Care Cloud Administrator Name Role Phone Sepideh Hopkins Primary Care Provider [phone] Vaishali Minor PharmD Unavailable [phone] Reason for Visit * Reason Comments Med Refill Encounter Details Date Type Department Care Team ([facility] st Contact Info) Description 02/27/2024 Refill [facility] MEDICINE 230 [place], [place] [phone] Sepideh Hopkins ANP 230 [place] [address] Social History Tobacco Use Types Packs/Day Years [...] Description 10/29/2025 11:00 AM EST Medication Management [facility] MEDICINE 230 [place] [address] Vaishali Minor PharmD 230 [place] [address] 11/18/2025 11:00 AM EST Telemedicine [facility] CHC MED & PEDS 505 [place] [address] Shanelle Miller, MENDEL 505 [place] [address] 01/02/2026 10:15 AM EST Office Visit [facility] ADULT DENTAL 230 [place] [address] Linsey Dawkins 01/03/2026 1:00 PM EST Office Visit [facility] OPTOMETRY [address] [place] [address] Shreya Roberto, OD 230 [place] [address] documented as of this encounter Visit Diagnoses Not on filedocumented in this encounter Care Teams Cloud Administrator Relationship Specialty Start Date End Date Sepideh Hopkins ANP [address] [place] [address] PCP - General Family Medicine 07/07/20 Vaishali Minor PharmD [address] [place] [address] Pharmacist Internal Medicine 10/29/24 Clarence Perkins Behavioral Health ProfessionalData Reduction Technician 06/24/25 documented as of this encounter
--- OUTSIDE RECORDS SUMMARY | 2025-10-01 18:37 | XMS_ITS | Encounter Summary ---
Author Organization [employer] Address 75 [facility] 7t [place] [address] Care Team Providers Care Cash Surrender Calculator Name Role Phone Sepideh Hopkins Primary Care Provider [phone] Vaishali Minor PharmD Unavailable Encounter Details Date Type Department Care Team (Latest Contact Info) Description 07/23/[address] [facility] CONVERSIONS Dental, Provider, DDS Social History [...] Description 10/29/2025 11:00 AM EST Medication Management [facility] MEDICINE 230 [place] [address] Vaishali Minor, PharmD 230 [place] [address] 11/18/2025 11:[address] [facility] CHC MED & PEDS 505 [place] [address] Shanelle Miller, RN 505 [place] [address] 01/02/2026 10:15 AM EST Office Visit [facility] ADULT DENTAL 230 [place] [address] Linsey Dawkins 01/03/2026 1:00 PM EST Office Visit [facility] OPTOMETRY [address] [place] [address] Shreya Roberto, LAURI 230 [place] [address] documented as of this encounter Visit Diagnoses Not on filedocumented in this encounter Care Teams Cash Surrender Calculator Relationship Specialty Start Date End Date Sepideh Hopkins ANP 230 [place] [address] PCP - General Family Medicine 07/07/20 Vaishali Minor PharmD 230 [place], [place] [phone] Pharmacist Internal Medicine 10/29/24 Clarence Perkins Reporting DeveloperAny Commodity Buyer 06/24/25 documented as of this encounter
--- OUTSIDE RECORDS SUMMARY | 2025-10-01 18:37 | XMS_ITS | Clinical Summary ---
Author Organization [facility] Facility Address [address] [place] [address] Care Team Providers Care Floral Artist Name Role Phone Karlos Adame [facility] Primary Care Provider [phone] Family History Medical History Relation Comments Diabetes [...] Name Priority Date/Time Associated Diagnosis Comments LAB CHIEF SUSTAINABILITY OFFICER Routine 10/19/2017 12:00 AM EST from Last 3 Months or Most Recently Relevant to Health Maintenance Results * Lab Lawyer (10/19/2017 12:00 AM EST) Hemoglobin A1C 5.9 % [facility] 10/19/2017 [facility] Conversion LAB [id number] LICITED RESULTS Final Result [facility] from Last 3 Months or Most Recently Relevant to Health Maintenance Insurance * Guarantor: Joelle Myers I Account Type Relation to Patient Date of Phone Billing Address Personal/Family Self 1960 [address] [place] [address] Medicaid [place] * Guarantor: Joelle Myers I Account Type Relation to Patient Date of Phone Billing Address Personal/Family Self 1960 [address] [place] [address] Care Teams Floral Artist Relationship Specialty Start Date End Date Karlos Adame FNP [address] [place] [address], [address]rd [place] [address] PCP - General 11/17/20
--- OUTSIDE RECORDS SUMMARY | 2025-10-01 18:37 | XMS_ITS | Continuity of Care Document ---
Author Organization [place] - [facility], [facility] Address [address] [place] [phone] Assessment No assessment recorded. Plan of Treatment Reminders Order Date Submit Date Provider Last Modified By Organization Details Last Modified Time Details Appointments None recorded. Lab None recorded. Referral None recorded. Procedures None recorded. Surgeries None recorded. Imaging CT, sinuses, w/o contrast 2024 025 [facility], [address] [place] [address], [id number], 17:15:00 Medication Orders None recorded. Patient TargetsNo targets recorded. Patient InstructionsNo instructions recorded. Reason for Referral None Reported. Results Created Date Observation Date Name Description Value Unit Range Abnormal Flag Note LastModifiedBy Organization Detail LastModifiedTime 09/03/20 CT, sinus es, w/o contr ast No observ ation [facility] [address], [address], 09/03/2025 15:13:16 09/03/20 25 audio gram No observ ation record ed. BARCODE Not Available 2024 18:40:21 09/28/2009/03/2025 CT, sinus es, w/o contr ast No observ ation record ed. [email or web address] Of [address], [address], 09/30/2025 09:38:10 Result Notes None recorded. Problems Name Problem SNOMED Code Status Onset Date Resolution Date Notes Provider Name and Address Organization Details Recorded Time Dizziness and giddiness 573599296 Active 2024 [address]ENNA BENNETT [address] [place] [address], [place], [phone], [facility] - [facility] 14:35:35 Pain in face 08509646 Active 2024 KENISHA Bowling MD [address] [place] [address], [place], [address], [facility] [place] 15:12:20 Maxillary sinusitis 75080908 Active 2024 KENISHA Bowling MD [address] [place] [address], [place], [address], [facility] 15:12:24 Impacted cerumen in right ear 80095843722936 03 Active 2024 KENISHA Bowling MD [address] [place] [address], [place], [address], [facility] 15:14:29 Problem Notes None recorded. Procedures Surgical History Date Name Laterality Status Provider Name and Address Organization Details Recorded Time Cerumen removal without microscope right completed KENISHA GRAHAM MD [address] [place] [address], [phone], [facility] 09/03/2025 15:13:45 NasalEndoscopy_ DP completed KENISHA GRAHAM MD [address] [place] [address], [phone], [facility] 09/03/2025 15:02:56 Air & Speech Audio with Tymps - 21135, [address] & [address] completed JENNA BENNETT [address] [facility],[address], [address], [facility] 09/03/2025 14:35:25 Imaging Results None recorded. Procedure [...] powder MIX DIRECTED AND TAKE DIRECTED BY [facility] active Not Available Not Available No [...] Available Pentips Pen Needle 32 gauge x /32 USE DIRECTED WITH INSULIN EVERY DAY active [...] Available No t Available Free[employer] Dagmar 2 [place] USE DIRECTED EVERY 8 HOURS active Not [...] Available No t Available [employer] Dagmar 3 [place] USE DIRECTED TO TEST BLOOD SUGAR active Not Available Not Available No t Available [employer] Dagmar 2 Plus Sensor device USE DIRECTED active Not Available Not Available No t Available Vitals Date Recorded Body height Body mass index (BMI) Body weight Systolic And Diastolic Provider Name and Address Organization Details Last Updated DateTime 09/03/2025 154.94 cm 28.7 kg/m2 55536.04 g 115/76 mm[Hg] Roosevelt Mclaughlin [place] - [facility] 09/03/2025 14:53:48 Social History None recorded. Functional Status None recorded. Mental Status None recorded. Family History Nothing Reported. Medical History Condition Response Hypertension Y Anxiety Y Depression Y Asthma Y Kidney Disease Y Gynecological HistoryNo gynecological history recorded. Obstetrics History GPAL:G 0 P 0 0 0 0 Past Encounters Encounter ID Performer Location Encounter Start Date Encounter Closed Date Diagnosis/Indication Diagnosis SNOMED-CT Code Diagnosis ICD10 Code Diagnosis IMO Codes Diagnosis Note [id number] KENISHA GRAHAM MD [facility] [address] [place] [address] 09/03/2025 14:18:21 09/03/2025 15:40:06 Dizziness and giddiness 564140104 R42 68424 Right Ear:Normal hearing with excellent speech discrimina tion.Type A tympanogra m.Left Ear:Normal hearing with excellent speech discrimina tion.Type A tympanogra m. Audio was normal [place] was normal. I don't feel her dizziness is otologic in nature. I recommend observatio n. Pain in face 82547743 R5 1.9 831867 Maxillary sinusitis 8834 8008 J32.0 [id number] I recommend a CT sinus to see [...] n. Impacted c erumen in right ear 1573975412 496106 H61.21 [id number] Recurrent Cerumen Impactions : Ears were meticulous [...] Wang Member ID Guarantor Name 09/03/2025 1 [place] [facility] PLAN Joelle Escobedo [id number] Joelle Myers Notes Date Note Type Note Provider Name and Address Organization Details Recorded Time 09/03/2025 text/html ROS as noted in the HPI She presents with concern for sinusitis. She has frontal and maxillary facial pain. It usually resolves within a day or two. She had a CT head in January at [place] which showed left maxillary sinusitis. She was put on a prolonged course of abx. She was having dizziness. Her dizziness has improved. She denies room spinning vertigo. She has some current frontal pressure. She does endorse allergy to pollen. She has tried cetirizine and flonase with minimal relief. Audio showed borderline normal hearing. KENISHA GRAHAM MD [address] [place] [address], [place], [address], [facility] - [facility] 09/03/2025 17:12:21 OBGyn Episode No OBEpisode recorded.
--- OUTSIDE RECORDS SUMMARY | 2025-10-01 18:37 | XMS_ITS | Encounter Summary ---
Author Organization [employer] Address 75 [facility] 7t [place] [address] Care Team Providers Care Simulation Engineer Name Role Phone Sepideh Hopkins Primary Care Provider Vaishali Minor PharmD Unavailable Encounter Details Date Type Department Care Team (Late Contact Info) Description 10/03/2023 Orders Only [facility] MEDICINE [address] [place] [address] Sepideh Hopkins ANP [address] [place] [address] Social History Tobacco Use Types Packs/Day Years [...] Description 10/29/2025 11:00 AM EST Medication Management [facility] MEDICINE 230 [place] [address] Vaishali Minor, PharmD 230 [place] [address] 11/18/2025 11:00 AM EST Telemedicine [facility] CHC MED & PEDS 505 [place], [place] [phone] Sahnelle Miller, RN 505 [place] [address] 01/02/2026 10:15 AM EST Office Visit [facility] ADULT DENTAL 230 [place] [address] Linsey Dawkins 01/03/2026 1:00 PM EST Office Visit [facility] OPTOMETRY [address] [place], [place] [phone] Shreya Roberto, OD 230 [place] [address] documented as of this encounter Visit Diagnoses Not on filedocumented in this encounter Care Teams Simulation Engineer Relationship Specialty Start Date End Date Sepideh Hopkins ANP [address] [place] [address] PCP - General Family Medicine 07/07/20 Vaishali Minor PharmD [address] [place] [address] Pharmacist Internal Medicine 10/29/24 Clarence Perkins Trim TechnicianSupply Chain Logistics Manager 06/24/25 documented as of this encounter
--- OUTSIDE RECORDS SUMMARY | 2025-10-01 18:37 | XMS_ITS | Encounter Summary ---
Author Organization [employer] Address 75 [facility] 7t [place] [address] Care Team Providers Care Merchant Banker Name Role Phone Sepideh Hopkins Primary Care Provider [phone] Vaishali Minor PharmD Unavailable [phone] Reason for Visit * Reason Onset Date Comments Med Refill 09/05/2025 Encounter Details Date Type Department Care Team ([facility] st Contact Info) Description 09/05/2025 Telephone [facility] MEDICINE [address] [place] [address] Sepideh Hopkins ANP 230 [place] [address] Med Refill Social History Tobacco Use Types [...] 50 MG tablet To be sent to: [facility] documented in this encounter Plan of Treatment Upcoming Encounters Date Type Department Care Team (Late st Contact Info) Description 10/29/2025 11:00 AM EST Medication Management [facility] MEDICINE 230 [place] [address] Vaishali Minor, PharmD 230 [place] [address] 11/18/2025 11:00 AM EST Telemedicine [facility] CHC MED & PEDS 505 [place] [address] Shanelle Miller, RN 505 [place] [address] 01/02/2026 10:15 AM EST Office Visit [facility] ADULT DENTAL 230 [place], [place] [phone] Linsey Dawkins 01/03/2026 1:00 PM EST Office Visit [facility] OPTOMETRY [address] [place], [place] [phone] Shreya Roberto, OD 230 [place] [address] documented as of this encounter Visit Diagnoses Not on filedocumented in this encounter Additional Health Concerns Assessment Noted Time PHQ-9 Depression Total Score: 5 11/23/19 25 1:05 PM EST documented as of this encounter Care Teams Merchant Banker Relationship Specialty Start Date End Date Sepideh Hopkins ANP 230 [place], [place] [phone] PCP - General Family Medicine 07/07/20 Vaishali Minor PharmD 230 [place] [address] Pharmacist Internal Medicine 10/29/24 Clarence Perkins Head Banquet WaitressCentura Technical Lead Senior Developer 06/24/25 documented as of this encounter
--- OUTSIDE RECORDS SUMMARY | 2025-10-01 18:37 | XMS_ITS | Encounter Summary ---
Author Organization [employer] Address 75 [facility] 7t [place] [address] Care Team Providers Care Operating Systems Specialist Name Role Phone Sepideh Hopkins JAVI Primary Care Provider [phone] Vaishali Minor PharmD Unavailable Reason for Visit * Reason Onset Date Comments Appointment 12/08/2022 Patient called i n inquiring about RCT appt with Pasquale. Encounter Details Date Type Department Care Team ([facility] Contact Info) Description 12/08/2022 Telephone [facility] CHC ADULT DENTAL [address] [place], [place] [phone] Gregorio Giordano, ANNIES [address] [place], [place] [phone] Appointment (Patient called in inquiring about RCT [...] Description 10/29/2025 11:00 AM EST Medication Management [facility] MEDICINE 230 [place] [address] Vaishali Minor, PharmD 230 [place] [address] 11/18/2025 11:00 AM EST Telemedicine [facility] CHC MED & PEDS [address] [place] [address] Shanelle Miller, RN 505 [place] [address] 01/02/2026 10:15 AM EST Office Visit [facility] ADULT DENTAL 230 [place] [address] Linsey Dawkins 01/03/2026 1:00 PM EST Office Visit [facility] OPTOMETRY [address] [place] [address] PardeepShreya ramirez, OD 230 [place] [address] documented as of this encounter Visit Diagnoses Not on filedocumented in this encounter Care Teams Operating Systems Specialist Relationship Specialty Start Date End Date Sepideh Hopkins ANP [address] [place] [address] PCP - General Family Medicine 07/07/20 Vaishali Minor, Leonidas [address] [place] [address] Pharmacist Internal Medicine 10/29/24 Clarence Perkins Systems Test AnalystChucking And Sawing Machine Operator 06/24/25 documented as of this encounter
--- OUTSIDE RECORDS SUMMARY | 2025-10-01 18:37 | XMS_ITS | Encounter Summary ---
Author Organization [employer] Address 75 [facility] 7t [place] [address] Care Team Providers Care Certified Flight Instructor Name Role Phone Sepideh Hopkins Primary Care Provider [phone] Vaishali Minor PharmD Unavailable Encounter Details Date Type Department Care Team (Late st Contact Info) Description 10/04/2022 Abstract [facility] ADULT DENTAL [address] [place] [address] Dental, Provider, DDS Social History Tobacco Use [...] Description 10/29/2025 11:00 AM EST Medication Management [facility] MEDICINE [address] [place] [address] Vaishali Minor, PharmD 230 [place] [address] 11/18/2025 11:00 AM EST Telemedicine [facility] CHC MED & PEDS [address] [place] [address] Shanelle Miller, RN 505 [place] [address] 01/02/2026 10:15 AM EST Office Visit [facility] ADULT DENTAL [address] [place] [address] Linsey Dawkins 01/03/2026 1:00 PM EST Office Visit [facility] OPTOMETRY [address] [place] [address] Pardeep Shreya, OD 230 [place] [address] documented as of this encounter Procedures Procedure [...] on filedocumented in this encounter Care Teams Certified Flight Instructor Relationship Specialty Start Date End Date Sepideh Hopkins ANP [address] [place] [address] PCP - General Family Medicine 07/07/20 Vaishali Minor PharmD 230 [place] [address] Pharmacist Internal Medicine 10/29/24 Clarence Perkins Track RiderRecord Producer 06/24/25 documented as of this encounter
--- OUTSIDE RECORDS SUMMARY | 2025-10-01 18:38 | XMS_ITS | Encounter Summary ---
Author Organization [employer] Address 75 [facility] 7t [place] [address] Care Team Providers Care Engraver Ornamental Design Name Role Phone Sepideh Hopkins Primary Care Provider [phone] Vaishali Minor PharmD Unavailable Reason for Visit * Reason Comments Med Refill Encounter Details Date Type Department Care Team ([facility] st Contact Info) Description 05/23/2025 Refill [facility] MEDICINE 230 [place], [place] [phone] Sepideh Hopkins ANP 230 [place] [address] History of pulmonary embolism; Diabetic polyneuropathy associated [...] Management [facility] MEDICINE [address] [place] [address] Vaishali Minor, PharmD 230 [place] [address] 11/18/2025 11:00 AM EST Telemedicine [facility] CHC MED & PEDS 505 [place] [address] Shanelle Miller, RN 505 [place] [address] 01/02/2026 10:15 AM EST Office Visit [facility] ADULT DENTAL 230 [place] [address] Linsey Dawkins 01/03/2026 1:00 PM EST Office Visit [facility] OPTOMETRY [address] [place] [address] Shreya Roberto, OD 230 [place] [address] documented as of this encounter Visit Diagnoses Diagnosis History of pulmonary embolism Personal history of venous thrombosis and embolism Diabetic polyneuropathy associated with type 2 diabetes mellitus (HCC) documented in this encounter Additional Health Concerns Assessment Noted Time PHQ-9 Depression Total Score: 5 11/23/19 25 1:05 PM EST documented as of this encounter Care Teams Engraver Ornamental Design Relationship Specialty Start Date End Date Sepideh Hopkins ANP 230 [place] [address] PCP - General Family Medicine 07/07/20 Vaishali Minor PharmD 230 [place] [address] Pharmacist Internal Medicine 10/29/24 Clarence Perkins Academic Advising DirectorDough Brake Machine Operator 06/24/25 documented as of this encounter
[2025-10-02 06:50] LABS: ~HepC Num1 0.12 S/CO (0.00-0.79); ~Hepatitis C Antibody Nonreactive (Nonreactive)
== END 2025-10-01 14:51 | disposition home or self-care (01) ==
LOC: HO.HHCL 14:50
PROVIDERS: PCP Nurse Practitioner Primary Care; Visit Provider Nurse Practitioner Primary Care
DX: Z11.59 Encounter for screening for other viral diseases (principal); E11.59 Type 2 diabetes mellitus with other circulatory complications; E83.42 Hypomagnesemia; I15.2 Hypertension secondary to endocrine disorders
CPT/HCPCS: 36415; 80048; 82043; 82570; 83735; 86803

== ENCOUNTER 2025-10-17 10:30 | Outpatient (AMB) | payer MEDICAID, SELFPAY ==
--- NOTE | 2025-10-17 10:32 | MHC.OFFVIS ---
Vital Signs 10/17/25 10:40 Height 5 ft 1 in Weight 152 lb BMI 28.7 Intake Visit Reasons: New Patient - Left Shoulder Pain Intake Note: Matt is a 65 year old right hand dominant female who presents today as a new patient with complaints of left shoulder pain. She was seen at [facility] on 08/26/25 with 2 months history of left shoulder pain with no injury. Patient reports her back is located in her bicep area and travels up to her neck. No numbness or tingling. Limited ROM. No previous treatments. Finds very little relief with use of Tramadol and Tylenol. Ticket Speculator Required: Yes Ticket Speculator Services: Ticket Speculator Present Ticket Speculator Name: Jacey ID#[id number] Allergies No Known Allergies Allergy (Verified 10/17/25 10:39) Medication List - Last Reconciled 10/17/25 by Edison Guzman PA-C acarbose 100 mg PO TID acetaminophen 1,000 mg PO Q6H PRN albuterol sulfate 2.5 mg inhalation Q6H PRN apixaban (Eliquis) 2.5 mg PO BID atorvastatin 40 mg PO BEDTIME blood sugar diagnostic (FreeStyle Lite Strips) 4 times a day blood-glucose meter (FreeStyle Lite Meter kit) use as directed TID blood-glucose meter (FreeStyle Rudy Lite kit) To test bg 3x/day budesonide-formoterol 160-4.5 mcg/actuation 2 puffs inhalation BID bupropion HCl SR 100 mg PO DAILY cetirizine 10 mg PO DAILY cholecalciferol (vitamin D3) 50 mcg PO DAILY docusate sodium (Colace) 100 mg PO DAILY esomeprazole magnesium (Nexium) 40 mg PO DAILY famotidine 40 mg PO BEDTIME fenofibrate micronized 134 mg PO DAILY flash glucose sensor (FreeStyle Dagmar 2 Sensor kit) As directed fluticasone propionate 50 mcg/actuation 1 spray intranasal BID FreeStyle Lancets (lancets) 3 times a day NS gabapentin 600 mg PO TID insulin glargine (Lantus Solostar U-100 Insulin) 30 units subcut DAILY lidocaine 5% 1 patch topical DAILY lorazepam 0.5 mg PO BID PRN magnesium oxide 400 mg PO DAILY metformin ER 500 mg PO BID metoprolol succinate ER (Toprol XL) 50 mg PO BID nitroglycerin 0.3 mg sublingual Q5M PRN 10 days pen needle, diabetic (BD Ultra-Fine Sienna Pen Needle) four times a day semaglutide (Ozempic) 2 mg subcut FR sertraline (Zoloft) 200 mg PO BEDTIME tiotropium bromide (Spiriva with HandiHaler) 1 cap inhalation DAILY tramadol 50 mg PO Q8H PRN zolpidem 10 mg PO BEDTIME PRN HPI Comments Details: History of Present Illness The patient is a 65 year old female presenting with left shoulder pain that began on August 26 without a preceding injury. She describes the pain as constant and present throughout the day, and it is severe enough to disrupt her sleep at night. The pain is exacerbated by reaching overhead, carrying objects, and grabbing things, but she finds that sleeping in a certain position provides some relief. For treatment, she has used a prescribed cream and oral pills, which provided minimal relief. She has not received any injections in her shoulder. She had a physical therapy appointment scheduled but canceled it pending this consultation. Recent imaging includes an X-ray that showed some arthritis in the shoulder and an MRI revealing fraying of the rotator cuff. Her past medical history is significant for diabetes, which she states is controlled. She is also on Eliquis for h/o DVT/PE PFSH Medical History Asthma Depression Anxiety Dizziness Headache Hx pulmonary embolism (~2016) Personal history of nicotine dependence History of colon polyps Osteophyte of cervical spine Stented coronary artery (~2012) Elevated LFTs CAD (coronary artery disease) Dyslipidemia Hypertension Diabetic polyneuropathy associated with type 2 diabetes mellitus [facility] (current) use of insulin Diabetes type 2, uncontrolled (~2011) GERD (gastroesophageal reflux disease) Constipation Personal history of PE (pulmonary embolism) (~2013) Current use of anticoagulant therapy (~2013) Surgical History History of colonoscopy History of esophagogastroduodenoscopy (EGD) History of heart artery stent Family History Father No problems noted. 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 - Constitutional: Denies any specific injury leading to the pain. - Endocrine: Reports history of diabetes, which is controlled. Physical Exam Exam Exam: Left shoulder normal to inspection Tenderness to palpation over proximal biceps Positive [place] She is able to activate all rotator cuff strength with discomfort Neurovascularly intact Vital Signs: BMI result Body Mass Index 28.7 Office Procedures AMB Joint Injection/Aspiration Joint Injection/Aspiration Primary Site: Left Shoulder Prep: site was prepped using aseptic technique, ethochloride spray was applied and injection warnings given Injected: 40 mg of, Decadron, with 3 mL of, 1% plain Lidocaine, 0.25% Bupivacaine and in the subcromial space Approach Used: posterolateral Procedure: The patient tolerated the procedure well and there was some relief with the local anesthesia Coding 26044 - Glenohumeral/Tronchanteric Bursa/Intraarticular Procedure code (CPT) selection complete Results Reviewed Results Reviewed: XR shoulder LT min 2V IMPRESSION: Unremarkable examination of the left shoulder and humerus. MR shoulder LT wo con IMPRESSION: There is a frayed bursal sided tear of supraspinatus tendon 1 cm from the footprint involving more than half the tendon thickness. There is a second area of shallow fraying of the bursal side of supraspinatus tendon at the footprint. There is hypertrophic tendinopathy involving supraspinatus and infraspinatus tendons. Assessment & Plan Assessment & Plan (1) Rotator cuff insufficiency of left shoulder: Code(s): M25.312 - Other instability, left shoulder Category: Medical Plan 1. Left Rotator Cuff Tendinopathy The patient's MRI showed fraying of the rotator cuff and her X-ray revealed some shoulder arthritis. A cortisone injection will be administered today to help with her pain. A referral for physical therapy will be placed to focus on posture and scapular stabilization, and she was advised to reschedule her appointment. If the injection does not provide adequate relief, a referral to pain management will be considered. 2. Diabetes Mellitus The patient has a history of diabetes, and she was counseled that the cortisone injection can cause an elevation in her blood sugar levels. She was instructed to monitor her sugar levels closely for the next 72 hours. Consent The risks, benefits, and alternatives of a cortisone injection for left shoulder pain were discussed with the patient. A specific risk of temporary hyperglycemia was explained due to her history of diabetes. The patient was instructed to monitor her blood glucose levels for 72 hours after the procedure. The patient verbalized understanding of these points and provided consent for the procedure. Patient was informed and verbally consented to the use of an ambient scribe for clinic note documentation during this visit. Orders: Orders PT Evaluation and Treatment Today M25.312 - Other instability, left shoulder Referrals Pain Management Referral M25.312 - Other instability, left shoulder Coding Level of Care Code New Pt Level 3 (37978) Add On Problem Visit Only Diagnoses Rotator cuff insufficiency of left shoulder M25.312 CPT Codes Coding - Joint 7: 16259 - Glenohumeral/Tronchanteric Bursa/Intraarticular ([id number])
[2025-10-17 10:40] VITALS: BMI 28.7
== END 2025-10-17 11:51 | disposition home or self-care (01) ==
LOC: HO.HOS 10:30
PROVIDERS: PCP Nurse Practitioner Primary Care; Visit Provider Physician Assistant
DX: M25.312 Other instability, left shoulder (principal)
CPT/HCPCS: 20610; 99203

== ENCOUNTER → 2025-10-17 10:30 | Outpatient (BNVA) | payer MEDICAID, SELFPAY | PROVIDERS: PCP Nurse Practitioner Primary Care; Visit Provider Physician Assistant | DX: M25.512 Pain in left shoulder (principal); Z79.52 Long term (current) use of systemic steroids | CPT/HCPCS: 20610; 99212; J0665; J1100; J2003 ==